=== PATIENT | female | born 1970 | race Caucasian/White ===

== ENCOUNTER 2016-03-30 13:46 | Inpatient (IN) | payer OTHER ==
[~2016-03-30] VITALS: Ht 154.9 cm; Wt 67.8 kg
[2016-03-30] VITALS (12 sets, daily range): BP systolic 108–129; BP diastolic 65–86; PULSE 82–103; RESP 18–30; TEMP 97.9–98.6; O2SAT 89–99
[~2016-03-30 13:46] MED LIST: ALPR.25 PO; ASPI81TA82 PO; ATOR80TA41 PO; FURO20 PO; LANTUS2P SC; LEVO50TA4 PO; LISI2.5T3 PO; METF500 PO; METO25TA6 PO; NOVOLOGP2 SQ; SPIR25TA PO; WARF-20 PO
[2016-03-30] MEDS ORDERED: METF1000 PO (14:20)
[2016-03-30] MEDS ORDERED: FURO20TA PO (14:21)
[2016-03-30] MEDS ORDERED: METO25TA3 PO (14:21)
[2016-03-30] MEDS ORDERED: WARF-20 PO (14:21)
[2016-03-30] MEDS ORDERED: ATOR1TAB18 PO (14:21)
[2016-03-30] MEDS ORDERED: SPIR25TA PO (14:21)
[2016-03-30] MEDS ORDERED: LANTUS2P SQ (14:21)
[2016-03-30] MEDS ORDERED: ALPR0.25 PO (14:21)
[2016-03-30] MEDS ORDERED: LEVO50TA4 PO (14:21)
[2016-03-30] MEDS ORDERED: LISI-515 PO (14:21)
[2016-03-30] MEDS ORDERED: SODIUM CHLORIDE 0.9% FLUSH 5 ML FLUSH IVF PRN (14:30)
--- NOTE | 2016-03-30 14:36 | PD ---
HPI Chief Complaint: Chest Pain Time Seen by Provider: 14:16 Travel History International Travel<30 days: No Contact w/Intl Traveler<30days: No Traveled to known affect area: No History of Present Illness HPI This is a 45 year old female who presents to the emergency department with a significant cardiac history with chest pain. Pt. had her first stent placed in her 30s and has an AICD. The patient reports that last evening she started to feel short of breath, with sharp chest pain under her left breast, constant, moderate severity, associated with multiple episodes of vomiting. She also reports that she has had a cough for a week and she has felt chills and feverish for one week. she has felt lightheaded and fatigued along with this. It has been a long time since she has seen a doctor because of insurance reasons and she has been off of all medications for one month. Pt. also has a history of IV drug use. She says she last used in 2008. PFSH Past Medical History Hx Anticoagulant Therapy: Yes (Warfarin) Anemia: No Arthritis: Yes Asthma: No Autoimmune Disease: No Blood Disorders: No Bipolar Disorder: No Anxiety: Yes Depression: Yes Heart Rhythm Problems: No Cancer: No Cardiac Catheterization: Yes Cardiovascular Problems: Yes (CHF, defibrillator, VA w/stents, DVT) High Cholesterol: Yes Chemotherapy: No Chest Pain: Yes Congestive Heart Failure: Yes COPD: Yes Cerebrovascular Accident: No Coronary Artery Disease: Yes Diabetes: Yes (Type 2 ) Patient Takes Glucophage: Yes Diminished Hearing: No Endocrine: Yes GERD: Yes Genitourinary: No Headaches: No Hepatitis: No Hiatal Hernia: No Hypertension: Yes Kidney Stones: No Musculoskeletal: Yes (CARPAL TUNNEL) Neurologic: No Psychiatric: No Reproductive: No Respiratory: Yes (COPD) Migraines: No Myocardial Infarction: Yes (2003) Pancreatitis: No Radiation Therapy: No Renal Failure: No Schizophrenia: No Seizures: No Sickle Cell Disease: No Sleep Apnea: No Thyroid Disease: Yes Ulcer: No PNEUMOCCOCAL Vaccine (Year): 3 ?: Not LMP: [place]- Menopausal: Yes : 5 Para: 3 : 2 Tubal Ligation: Yes Past Surgical History Abdominal Surgery: Yes (gb) AICD: Yes Appendectomy: No Cardiac Surgery: Yes (stents) Section: Yes (X 3) Cholecystectomy: Yes Coronary Artery Bypass Graft: No Coronary Stent: Yes (LAD) Ear Surgery: No Eye Surgery: No Genitourinary Surgery: No Gynecologic Surgery: Yes Oral Surgery: Yes Pacemaker: No Thoracic Surgery: No Tonsillectomy: No Other Surgery: Yes (c sections) Social History Alcohol Use: No Tobacco Use: No Substance Use: No Allergies-Medications (Allergen,Severity, Reaction): Coded Allergies: No Known Allergies (Unverified , 03/30/16) Reported Meds & Prescriptions Reported Meds & Active Scripts Active Reported Spironolactone 25 Mg Tab 25 Mg PO DAILY Levothyroxine (Levothyroxine Sodium) 50 Mcg Tab 50 Mcg PO DAILY Metformin (Metformin HCl) 1,000 Mg Tab 1,000 Mg PO BIDPC With meals Review of Systems Except as stated in HPI: all other systems reviewed are Neg Physical Exam Narrative GENERAL:Uncomfortable appearing SKIN: Warm and dry. HEAD: Atraumatic. Normocephalic. EYES: Pupils equal and round. No injection or drainage. ENT: Moist mucous membranes NECK: Trachea midline. CARDIOVASCULAR: Regular rate and rhythm. No murmur appreciated. RESPIRATORY: Clear to auscultation. Breath sounds equal bilaterally. GASTROINTESTINAL: Abdomen soft, non-tender, nondistended. MUSCULOSKELETAL: No obvious deformities. NEUROLOGICAL: Awake and alert. No obvious cranial nerve deficits. Moving all extremities. PSYCHIATRIC: Appropriate mood and affect; insight and judgment normal. Data Data Last Documented VS Vital Signs Date Time Temp Pulse Resp B/P Pulse Ox O2 Delivery O2 Flow Rate FiO2 03/30/16 15:14 100 20 128/80 94 108/65 03/30/16 15:14 Nasal Cannula 2 03/30/16 14:01 98.6 Orders Electrocardiogram (03/30/16 14:25) Complete Blood Count With Diff (03/30/16 14:25) Comprehensive Metabolic Panel (03/30/16 14:25) Prothrombin Time / Inr (Pt) (03/30/16 14:25) Act Partial Throm Time (Ptt) (03/30/16 14:25) Troponin I (03/30/16 14:25) Chest, Single Ap (03/30/16 14:25) Ecg Monitoring (03/30/16 14:25) Bilateral Bp Monitoring (03/30/16 14:25) Iv Access Insert/Monitor (03/30/16 14:25) Oximetry (03/30/16 14:25) Oxygen Administration (03/30/16 14:25) Sodium Chloride 0.9% Flush (Ns Flush) (03/30/16 14:30) Blood Culture (03/30/16 14:38) Lactic Acid (03/30/16 14:38) Sodium Chlorid 0.9% 500 Ml Inj (Ns 500 M (03/30/16 14:45) Lipase (03/30/16 14:25) B-Type Natriuretic Peptide (03/30/16 15:21) Sodium Chlor 0.9% 1000 Ml Inj (Ns 1000 M (03/30/16 15:45) Vancomycin Inj (Vancomycin Inj) (03/30/16 15:45) Heparin Infusion MAURI.Q1H (03/30/16 15:43) Heparin Inj (Heparin Inj) (03/30/16 15:45) Heparin-D5w Inj (Heparin-D5w Inj) (03/30/16 15:45) Cbc No Diff, Includes Plts (04/02/16 06:00) Act Partial Throm Time (Ptt) (03/30/16 22:43) Occult Blood (Hemoccult) Stool (03/30/16 15:43) Aspirin Chew (Aspirin Chew) (03/30/16 16:15) Admit Order (Ed Use Only) (03/30/16 16:10) Labs Laboratory Tests Test 03/30/16 03/30/16 03/30/16 14:00 14:40 15:05 White Blood Count 10.7 TH/MM3 Red Blood Count 4.38 MIL/MM3 Hemoglobin 12.5 GM/DL Hematocrit 36.8 % Mean Corpuscular Volume 84.1 FL Mean Corpuscular Hemoglobin 28.5 PG Mean Corpuscular Hemoglobin 34.0 % Concent Red Cell Distribution Width 14.8 % Platelet Count 126 TH/MM3 Mean Platelet Volume 7.6 FL Neutrophils (%) (Auto) 78.1 % Lymphocytes (%) (Auto) 16.2 % Monocytes (%) (Auto) 4.0 % Eosinophils (%) (Auto) 0.0 % Basophils (%) (Auto) 1.7 % Neutrophils # (Auto) 8.4 TH/MM3 Lymphocytes # (Auto) 1.7 TH/MM3 Monocytes # (Auto) 0.4 TH/MM3 Eosinophils # (Auto) 0.0 TH/MM3 Basophils # (Auto) 0.2 TH/MM3 CBC Comment DIFF FINAL Differential Comment Sodium Level 136 MEQ/L Potassium Level 4.1 MEQ/L Chloride Level 104 MEQ/L Carbon Dioxide Level 19.4 MEQ/L Anion Gap 13 MEQ/L Blood Urea Nitrogen 11 MG/DL Creatinine 1.20 MG/DL Estimat Glomerular Filtration 48 ML/MIN Rate Random Glucose 211 MG/DL Calcium Level 8.6 MG/DL Total Bilirubin 1.3 MG/DL Aspartate Amino Transf 254 U/L (AST/SGOT) Alanine Aminotransferase 80 U/L (ALT/SGPT) Alkaline Phosphatase 98 U/L Troponin I GREATER THAN 40.00 NG/ML Total Protein 7.8 GM/DL Albumin 3.1 GM/DL Lipase 83 U/L B-Type Natriuretic Peptide 1349 PG/ML Prothrombin Time 13.3 SEC Prothromb Time International 1.2 RATIO Ratio Activated Partial 29.3 SEC Thromboplast Time Lactic Acid Level 3.7 mmol/L MDM Medical Decision Making Medical Screen Exam Complete: Yes Emergency Medical Condition: Yes Interpretation(s) Afebrile, tachycardic, tachypneic, no hypoxia No leukocytosis LFTs are newly elevated Lactic acid is 3.7 BNP is 1349 Troponin is 40 EKG: Normal sinus rhythm with inferior and lateral T-wave inversions which are new from her prior EKG Differential Diagnosis Acute coronary syndrome, nSTEMI, STEMI, endocarditis, bacteremia, pneumonia Narrative Course This is a 45-year-old female who presents to the emergency department with a history of coronary artery disease as well as IV drug use. He was placed on a monitor and an IV was established. Labs are notable for a troponin greater than 40 as well as mild LFT elevation and an elevated BNP suggestive of congestive heart failure. She also has a lactic acid of 3.7 and she was somewhat tachycardic when she came in. Back in April she was admitted for strep viridans bacteremia. I did give her a dose of vancomycin. I spoke to Dr. Menchaca regarding the patient's troponin elevation and he agreed with placing the patient on heparin and transferring her to the main hospital. Diagnosis Primary Impression: NSTEMI (non-ST elevated myocardial infarction) Admitting Information Admitting Physician Requests: Admit Zee Uribe MD Mar 30, 2016 14:36
[2016-03-30] MEDS ORDERED: SODIUM CHLORID 0.9% 500 ML INJ 500 ML IV ONE (14:45)
--- NOTE | 2016-03-30 14:51 | RADHPO ---
EXAM DATE/TIME: 03/30/2016 14:30 [facility] COMPARISON: CHEST SINGLE AP, July 19, 2015, 11:31. INDICATIONS: Chest pain MEDICAL HISTORY: Chronic obstructive pulmonary disease. Asthma SURGICAL HISTORY: Pacemaker. ENCOUNTER: Initial ACUITY: 3 days PAIN SCORE: 10/10 LOCATION: Left lower quadrant chest FINDINGS: Pacemaker is in good position. There is compensated cardiomegaly without overt congestive failure, p arenchymal inflammatory infiltrates. Portion of bony skeleton visualized unremarkable. CONCLUSION: 1. Pacer. 2. Compensated cardiomegaly. Reginald Atkinson MD FACR on March 30, 2016 at 14:38 Board Certified Radiologist. This report was verified electronically.
[2016-03-30 14:56] LABS: AUTOMATED NEUTROPHIL # 8.4 TH/MM3 (1.8-7.7); BASOPHIL # 0.2 TH/MM3 (0-0.2); BASOPHIL % 1.7 % (0.0-2.0); HEMATOCRIT 36.8 % (35.0-46.0); LYMPH % 16.2 % (9.0-44.0); LYMPHOCYTE # 1.7 TH/MM3 (1.0-4.8); MEAN CELL VOLUME 84.1 FL (80.0-100.0); MEAN CORPUSCULAR HEMOGLOBIN 28.5 PG (27.0-34.0); NEUT % 78.1 % (16.0-70.0); PLATELET COUNT 126 TH/MM3 (150-450); RED BLOOD COUNT 4.38 MIL/MM3 (4.00-5.30); RED CELL DISTRIBUTION WIDTH 14.8 % (11.6-17.2); WHITE BLOOD COUNT 10.7 TH/MM3 (4.0-11.0)
[2016-03-30 15:04] LABS: HEMO FLAGS DIFF FINAL
[2016-03-30 15:08] LABS: CHLORIDE 104 MEQ/L (98-107); POTASSIUM 4.1 MEQ/L (3.5-5.1); SODIUM (NA) 136 MEQ/L (136-145)
[2016-03-30 15:12] LABS: ANION GAP 13 MEQ/L (5-15); BICARBONATE 19.4 MEQ/L (21.0-32.0); BLOOD UREA NITROGEN 11 MG/DL (7-18)
[2016-03-30 15:14] LABS: ALT (GPT) 80 U/L (10-53)
[2016-03-30 15:15] LABS: AST (GOT) 254 U/L (15-37); GLOMERULAR FILTRATION RATE 48 ML/MIN (>89)
[2016-03-30 15:16] LABS: TOTAL BILIRUBIN ADULT 1.3 MG/DL (0.2-1.0)
[2016-03-30 15:17] LABS: ALKALINE PHOSPHATASE 98 U/L (45-117)
[2016-03-30 15:26] LABS: APTT (PATIENT) 29.3 SEC (24.3-30.1); INTERNATIONAL NORMALIZED RATIO 1.2 RATIO; PROTHROMBIN TIME - PATIENT 13.3 SEC (9.8-11.6)
[2016-03-30] MEDS ORDERED: VANCOMYCIN 1,000 MG/NS 250 ML IV ONE ×2 (15:45)
[2016-03-30] MEDS ORDERED: VANCOMYCIN INJ 1,000 MG in SODIUM CHLOR 0.9% 250 ML INJ 250 ML IV ONE (15:45)
[2016-03-30] MEDS ORDERED: HEPARIN SODIUM - IV 10,000 UNITS/10 ML VIAL IV ONE (15:45)
[2016-03-30] MEDS ORDERED: HEPARIN-D5W INJ 250 ML IV SCH (15:45)
[2016-03-30] MEDS ORDERED: SODIUM CHLOR 0.9% 1000 ML INJ 1,000 ML IV ONE (15:45)
[2016-03-30] MEDS ORDERED: ASPIRIN 81 MG CHEW TAB CHEW ONE (16:15)
[2016-03-30] MEDS ORDERED: NALOXONE HCL 0.4 MG/ML AMP IV PRN (16:30)
[2016-03-30] MEDS ORDERED: SODIUM CHLORIDE 0.9% FLUSH 5 ML FLUSH FLUSH PRN (16:30)
[2016-03-30] MEDS ORDERED: ONDANSETRON HCL 4 MG/2 ML VIAL IVP PRN (16:30)
[2016-03-30] MEDS ORDERED: ACETAMINOPHEN 325 MG TAB PO PRN (16:30)
[2016-03-30] MEDS ORDERED: GLUCAGON 1 MG/ML VIAL OTHER PRN (16:45)
[2016-03-30] MEDS ORDERED: DEXTROSE 50% IN WATER 50 ML VIAL(D50) IV PUSH PRN (16:45)
[2016-03-30] MEDS ORDERED: MORPHINE SULFATE 8 MG/ML INJ IV PUSH ONE (16:45)
[2016-03-30] MEDS ORDERED: ALPRAZolam 0.25 MG TAB PO PRN (16:45)
[2016-03-30] MEDS: MORPHINE SULFATE 4 MG/ML INJ IV PRN ×2 (18:23→23:15)
[2016-03-30 21:09] LABS: CREATINE KINASE 1128 U/L (26-192)
[2016-03-30] MEDS: DOCUSATE SODIUM 100 MG CAP PO SCH (21:16)
[2016-03-30] MEDS: ATORVASTATIN 40 MG TAB PO SCH (21:17)
[2016-03-30] MEDS: SODIUM CHLORIDE 0.9% FLUSH 5 ML FLUSH FLUSH SCH (21:17)
[2016-03-30 21:21] LABS: CKMB 108.3 NG/ML (0.5-3.6)
[2016-03-30] MEDS: INSULIN ASPART SUPPLEMENTAL SCALE SQ SCH (21:25)
[2016-03-30] MEDS: NITROGLYCERIN 0.4 MG SL 25 TABS/BTL SL PRN (23:15)
[2016-03-31] VITALS (30 sets, daily range): BP systolic 91–125; BP diastolic 56–85; PULSE 82–202; RESP 22–30; TEMP 97.9–98.5; O2SAT 89–98
[2016-03-31] MEDS: NITROGLYCERIN 2% OINT 1 GM PACKET TOPICAL SCH ×5 (01:20→23:36)
[2016-03-31] MEDS: NITROGLYCERIN 0.4 MG SL 25 TABS/BTL SL PRN (01:28)
[2016-03-31 02:11] LABS: APTT (PATIENT) 40.5 SEC (24.3-30.1)
[2016-03-31] MEDS: MORPHINE SULFATE 4 MG/ML INJ IV PRN ×7 (02:25→23:39)
[2016-03-31 02:45] LABS: CREATINE KINASE 1056 U/L (26-192)
[2016-03-31 02:59] LABS: CKMB 72.4 NG/ML (0.5-3.6)
[2016-03-31 04:11] LABS: AUTOMATED NEUTROPHIL # 6.8 TH/MM3 (1.8-7.7); BASOPHIL # 0.1 TH/MM3 (0-0.2); BASOPHIL % 0.5 % (0.0-2.0); EOSINOPHIL % 0.1 % (0.0-4.0); HEMATOCRIT 33.5 % (35.0-46.0); HEMO FLAGS DIFF FINAL; LYMPH % 27.9 % (9.0-44.0); LYMPHOCYTE # 2.9 TH/MM3 (1.0-4.8); MEAN CELL VOLUME 83.9 FL (80.0-100.0); MEAN CORPUSCULAR HEMOGLOBIN 28.2 PG (27.0-34.0); MEAN CORPUSCULAR HGB CONC 33.6 % (32.0-36.0); MONO % 7.4 % (0.0-8.0); NEUT % 64.1 % (16.0-70.0); PLATELET COUNT 118 TH/MM3 (150-450); RED CELL DISTRIBUTION WIDTH 16.1 % (11.6-17.2); WHITE BLOOD COUNT 10.5 TH/MM3 (4.0-11.0)
[2016-03-31 04:38] LABS: BICARBONATE 20.9 MEQ/L (21.0-32.0); POTASSIUM 3.9 MEQ/L (3.5-5.1)
--- NOTE | 2016-03-31 04:53 | HHI.HP ---
[facility] Service [place] [facility] Primary Care Physician No Primary Care Physician Admission Diagnosis nstemi Diagnoses: Chief Complaint: Chest pain, shortness of breath Travel History International Travel<30 Days: No Contact w/Intl Traveler <30 Da: No Traveled to Known Affected Are: No History of Present Illness History the patient, ER physician notes, and review of medical records. patient reported that she came to the hospital because she has been having chest pains starting Wednesday evening. stated it started with 1 week history of cough, congestion,. No fever. Patient states that on Wednesday, she then started having severe shortness of breath followed by chest pains. She describes chest pains of midsternal, or squeezing in nature, no radiation. It was associated with some diaphoresis. Denies any blood in her stool or in her urine. Denies any nausea/vomiting/diarrhea. Denies any syncopal episodes. Reports of history of CADstatus post stent at the age of [age] years old. Also reported CHFstatus post AICD. States she stopped taking all her medications because she ran out of insurance. Patient is a chronic smoker half a pack a day. But denies being on any nebulizer or inhaler treatments at home so far. She says she also has history of DVT for which she was on Coumadin. Also stopped this about 3 or 4 weeks ago. patient initially presented to [place] emergency room. Her workup revealed elevated troponins. Per ER records, patient's case was discussed with [employer] systems administration analyst by ER physician. She was started on heparin drip, nitroglycerin sublingual, and morphine for her non-ST elevation SD and transferred to the main hospital for coronary angiogram. At the time of my exam, patient was initially sleeping comfortably. However as soon as I wake her up and talked to her, she gets somewhat anxious and she did have some hyperventilation and is complaining of quite a bit of chest pains. She reports the chest pain is relieved by nitroglycerin although is still persistent around 4. Review of Systems Other 12 point review of system is obtained and negative apart from what is mentioned in HPI Past Family Social History Past Medical History Hypertension Diabetes CADcardiac stents 2At age of 35 Hyperlipidemia CHFstatus post AICD. Last EF was 30% per patient. COPD Hepatitis Cnot treated History of DVTabout 2 years ago. Stated she stopped Coumadin on her own about 3 weeks ago or so. Hypothyroidism Past Surgical History AICD placement Cardiac stents and angiograms C-sections Tubal ligation Reported Medications Patient states she is not taking medications at home currently because she does not have insurance. Allergies: Coded Allergies: No Known Allergies (Unverified , 03/30/16) Family History reports hx of heart disease in family members, but cant be sure Social History / ppd , denies etoh abuse used to use meth iv - quit many years ago Physical Exam Vital Signs Vital Signs Date Time Temp Pulse Resp B/P Pulse Ox O2 Delivery O2 Flow Rate FiO2 03/31/16 03:30 97.9 100 30 121/79 89 03/30/16 23:05 97.9 103 30 129/86 89 03/30/16 22:25 82 18 97 03/30/16 22:24 82 18 124/78 97 Room Air 03/30/16 21:10 85 18 128/85 97 Room Air 03/30/16 20:00 83 18 126/80 98 Room Air 03/30/16 19:18 97 Nasal Cannula 2.00 03/30/16 19:06 84 18 122/82 97 Room Air 03/30/16 17:59 82 22 118/82 97 03/30/16 17:03 95 20 128/86 96 03/30/16 16:14 95 20 129/85 96 03/30/16 15:14 100 20 128/80 94 108/65 03/30/16 15:14 98 Nasal Cannula 2.00 03/30/16 15:14 Nasal Cannula 2 03/30/16 15:10 97 03/30/16 14:01 98.6 103 28 119/82 99 Physical Exam GENERAL: This is a well-nourished, well-developed patient, in mild distress. Somewhat anxious. Hyperventilating. Reports of chest pain. Tachycardic around 106. Blood pressure around 127/80. Saturating 96% on 50% Ventimask while asleep. But during awake hours, saturation was 96% on 2 L. SKIN: No rashes, ecchymoses or lesions. Cool and dry. HEAD: Atraumatic. Normocephalic. No temporal or scalp tenderness. EYES: No scleral icterus. No injection or drainage. ENT: Nose without bleeding, purulent drainage or septal hematoma. Airway patent. NECK: Trachea midline. No JVD CARDIOVASCULAR: Regular rate and rhythm without murmurs, gallops, or rubs. Lungs: Bilateral expiratory wheezing GASTROINTESTINAL: Abdomen soft, non-tender, nondistended. No guarding. MUSCULOSKELETAL: Extremities without clubbing, cyanosis, or edema. No calf tenderness NEUROLOGICAL: Awake and alert Motor and sensory grossly within normal limits Normal speech. Laboratory Laboratory Tests Test 03/30/16 03/30/16 03/30/16 03/30/16 14:00 14:40 15:05 20:30 White Blood Count 10.7 Red Blood Count 4.38 Hemoglobin 12.5 Hematocrit 36.8 Mean Corpuscular Volume 84.1 Mean Corpuscular Hemoglobin 28.5 Mean Corpuscular Hemoglobin 34.0 Concent Red Cell Distribution Width 14.8 Platelet Count 126 Mean Platelet Volume 7.6 Neutrophils (%) (Auto) 78.1 Lymphocytes (%) (Auto) 16.2 Monocytes (%) (Auto) 4.0 Eosinophils (%) (Auto) 0.0 Basophils (%) (Auto) 1.7 Neutrophils # (Auto) 8.4 Lymphocytes # (Auto) 1.7 Monocytes # (Auto) 0.4 Eosinophils # (Auto) 0.0 Basophils # (Auto) 0.2 CBC Comment DIFF FINAL Differential Comment Sodium Level 136 Potassium Level 4.1 Chloride Level 104 Carbon Dioxide Level 19.4 Anion Gap 13 Blood Urea Nitrogen 11 Creatinine 1.20 Estimat Glomerular Filtration 48 Rate Random Glucose 211 Calcium Level 8.6 Total Bilirubin 1.3 Aspartate Amino Transf 254 (AST/SGOT) Alanine Aminotransferase 80 (ALT/SGPT) Alkaline Phosphatase 98 Troponin I GREATER THAN GREATER THAN 40.00 40.00 Total Protein 7.8 Albumin 3.1 Lipase 83 B-Type Natriuretic Peptide 1349 Prothrombin Time 13.3 Prothromb Time International 1.2 Ratio Activated Partial 29.3 Thromboplast Time Lactic Acid Level 3.7 Total Creatine Kinase 1128 Creatine Kinase MB 108.3 Creatine Kinase MB % 9.6 Test 03/31/16 03/31/16 01:43 03:25 Activated Partial 40.5 Thromboplast Time Total Creatine Kinase 1056 Creatine Kinase MB 72.4 Creatine Kinase MB % 6.9 Troponin I GREATER THAN 40.00 White Blood Count 10.5 Red Blood Count 4.00 Hemoglobin 11.3 Hematocrit 33.5 Mean Corpuscular Volume 83.9 Mean Corpuscular Hemoglobin 28.2 Mean Corpuscular Hemoglobin 33.6 Concent Red Cell Distribution Width 16.1 Platelet Count 118 Mean Platelet Volume 8.3 Neutrophils (%) (Auto) 64.1 Lymphocytes (%) (Auto) 27.9 Monocytes (%) (Auto) 7.4 Eosinophils (%) (Auto) 0.1 Basophils (%) (Auto) 0.5 Neutrophils # (Auto) 6.8 Lymphocytes # (Auto) 2.9 Monocytes # (Auto) 0.8 Eosinophils # (Auto) 0.0 Basophils # (Auto) 0.1 CBC Comment DIFF FINAL Differential Comment Sodium Level 136 Potassium Level 3.9 Chloride Level 102 Carbon Dioxide Level 20.9 Anion Gap 13 Blood Urea Nitrogen 12 Creatinine 0.96 Estimat Glomerular Filtration 62 Rate Random Glucose 128 Calcium Level 8.0 Date/Time Procedure Status Source Growth 03/30/16 15:05 Aerobic Blood Culture Received Blood Peripheral Pending 03/30/16 15:05 Anaerobic Blood Culture Received Blood Peripheral Pending Result Diagram: 03/31/16 0325 03/31/16 0325 Imaging Last 48 hours Impressions Chest X-Ray 03/30/16 1425 Signed Impressions: Service Date/Time: Wednesday, March 30, 2016 14:30 - CONCLUSION: 1. Pacer. 2. Compensated cardiomegaly. Reginald Atkinson MD FACR Assessment and Plan Problem List: (1) NSTEMI (non-ST elevated myocardial infarction) ICD Code: I21.4 Status: Acute Assessment and Plan Impression: Non-ST elevation SD Possible anxiety compounding the symptoms Lactic acid acidosissecondary to SD Hypertension Diabetes CADcardiac stents 2At age of 35 Hyperlipidemia CHFstatus post AICD. Last EF was 30% per patient. COPD Hepatitis Cnot treated History of DVTabout 2 years ago. Stated she stopped Coumadin on her own about 3 weeks ago or so. Hypothyroidism Current tobacco abuse Prior history of IV methamphetamine use. Patient denies current use. Plan: Serial cardiac enzymes and EKGs. Continue heparin drip. Switch nitroglycerin to Nitropaste. We'll consider starting nitro drip if pain is not relieved. However nurse reported that patient's pain is usually relieved after receiving morphine and she would go back to sleep. She has some anxiety when we woke her up and this is when she will complain more of chest pains and shortness of breath. Cardiology consulted. Angiogram in a.m. Nothing by mouth. No sliding scale coverage while nothing by mouth. Since heparin does have D5 in it, I am not starting the D5 IV drip yet while nothing by mouth. We'll base this on fingersticks. Xanax 0.25 mg by mouth twice a day. DVT prophylaxison heparin drip. GI prophylaxis on pantoprazole. Discussed Condition With patient, patient's nurse Physician Certification 2 Midnight Certification Type: Admission for Inpatient Services Order for Inpatient Services The services are ordered in accordance with Medicare regulations or non- Medicare payer requirements, as applicable. In the case of services not specified as inpatient-only, they are appropriately provided as inpatient services in accordance with the 2-midnight benchmark. Estimated LOS (days): 3 days is the estimated time the patient will need to remain in the hospital, assuming treatment plan goals are met and no additional complications. Post-Hospital Plan: Home Zachary Molina MD Mar 31, 2016 04:53
[2016-03-31] MEDS: LEVOTHYROXINE SODIUM 50 MCG TAB PO SCH (05:50)
[2016-03-31] MEDS: INSULIN ASPART SUPPLEMENTAL SCALE SQ SCH ×4 (06:25→20:49)
[2016-03-31] MEDS: SPIRONOLACTONE 25 MG TAB PO SCH (08:53)
[2016-03-31] MEDS: METOPROLOL TARTRATE 25 MG TAB PO SCH (08:53)
[2016-03-31] MEDS: DOCUSATE SODIUM 100 MG CAP PO SCH ×2 (08:53→20:39)
[2016-03-31] MEDS: SODIUM CHLORIDE 0.9% FLUSH 5 ML FLUSH FLUSH SCH ×2 (08:54→20:45)
[2016-03-31] MEDS: PANTOPRAZOLE SOD 40 MG DELAYED RELEASE TAB PO SCH (09:09)
--- NOTE | 2016-03-31 11:36 | MB ---
cc: ZEKE MCLEAN DO DATE OF CONSULTATION: 03/31/2016 REASON FOR CONSULTATION: Tiy-VT-aujhihird myocardial infarction. HISTORY OF PRESENT ILLNESS Chantal Smart is a 45-year-old female who originally presented to the emergency room at [facility] on March 30, 2016 due to chest pain. She was found to have an elevated troponin and at that time placed on a heparin drip and transferred to [facility]. She states that she has had cough and congestion for a week coughing up some phlegm but denies fevers or chills. Wednesday night she started getting more severely short of breath and started getting some chest pain. Chest pain was in the center her chest and squeezing in nature. Denies any nausea, vomiting or diarrhea. On seeing her today she is still somewhat short of breath but denies any current chest pain. She currently is bringing up phlegm which has blood streaks throughout it. She also states that she was previously on medications including coumadin for a deep venous thrombosis that she stopped three to four weeks ago. When she takes off her non -rebreather mask, pulse ox drops to 80%. She can lay flat without getting more short of breath. PAST MEDICAL HISTORY 1. Hypertension 2. Diabetes mellitus. 3. History of coronary artery disease with previous stenting done in her 30s. 4. Hyperlipidemia 5. Ischemic cardiomyopathy with placement of an AICD. 6. Tobacco abuse. 7. Chronic obstructive pulmonary disease. 8. Hepatitis C not treated. 9. History of DVT about 2 years ago recently stopped Coumadin three weeks or so ago. 10. Hypothyroidism. 11. Previous drug abuse including meth and Dilaudid IV. PAST SURGICAL HISTORY 1. Cardiac catheterization (November 29, 2012) left main 20%, LAD ostial 50%, LAD stent in proximal to mid vessel is widely patent, mid 78% LAD, apical 80% stenosis LAD. Circumflex proximal 40% followed by a mid 70%. RCA proximal 60% mid 30-40%, PLV 60%, PDA proximal 70%, all extremely small vessels 2. Previous coronary stents placed in her 30s. 3. AICD placement. 4. . 5. Tubal ligation. ALLERGIES NO KNOWN DRUG ALLERGIES. MEDICATIONS The patient previously was on multiple medications but, stopped because she could not afford it and does not have insurance. FAMILY HISTORY The patient is currently unsure of her family history but denies sudden cardiac within the family. SOCIAL HISTORY The patient smokes one half-a-pack of cigarettes per day. Denies alcohol abuse. Previously had a history of meth and Dilaudid IV use but states she quit years ago. REVIEW OF SYSTEMS 14 systems were reviewed including osteopathic pertinent positives and negatives above, otherwise negative. PHYSICAL EXAMINATION VITAL SIGNS: Temperature 97.9, heart rate 103, blood pressure 121/79, respirations 20, pulse ox 89% on a non-rebreather. GENERAL: The patient is in some distress but appears to be breathing relatively well on her mask. She is somewhat anxious overall. Extraocular muscles intact. Mucous membranes moist. NECK: Supple. No JVD at 45 degrees. No carotid bruits heard bilaterally. Carotid upstroke is brisk in nature. HEART: Heart is tachycardic. Positive first and second heart sounds with no murmurs, gallops or rubs. LUNGS: Lungs have decreased breath sounds bilaterally but no overt wheezes, rales or rhonchi. ABDOMEN: Abdomen is soft, nontender sent no organomegaly noted. EXTREMITIES: Show no clubbing, cyanosis or edema. Femoral and distal pulses intact bilaterally. NEUROLOGIC: Neurologically: No focal deficits. SKIN: Warm, dry and intact. OSTEOPATHIC: Osteopathic with no kyphoscoliosis, lordosis or paraspinal tender points. LABORATORY FINDINGS The initiation hemoglobin 11.3, hematocrit 33.5, platelets 118. Left anterior descending needed. Potassium 3.9, BUN 12, creatinine 0.96, lactic acid 3.7, troponin greater than 40. BNP 13, 49. RADIOLOGIC: Electrocardiogram (March 31, 2016 at 0315) sinus tachycardia with one PVC, right axis deviation, inferior infarct which is age indeterminate, ST-T wave changes, possibly due to ischemia. IMPRESSION 1. Chest pain possibly due to coronary insufficiency, but PE should be ruled out 2. [id number] myocardial infarction unsure if at this time if it is type 1 or type 2. 3. Multivessel coronary artery disease by cardiac catheterization (November 29, 2012) 4. History of coronary artery disease with previous stents placed in her 30s. 5. Ischemic cardiomyopathy with an ejection fraction of 20-25% by echocardiogram (July 20, 2015). 6. Phlegm streaks with blood after being placed on a heparin drip. 7. Hypoxia 8. History of meth and Dilaudid IV use. 9. Tobacco abuse. 10. COPD. 11. Hepatitis C not treated. 12. History of DVT for which she was previously on Coumadin but stopped all her medications due to not having insurance 13. Noncompliance as she stopped all of her medications due to financial recent reasons. RECOMMENDATIONS 1. Lyndsey Smart originally presented with shortness of breath and chest pain. She was found to have an elevated troponin placed on a heparin drip. She does have known multivessel coronary artery disease and this may be why she has the elevation of troponin. 2. My other concern is that she is relatively short of breath and tachycardic. Consideration should be made for ruling out a pulmonary embolus. 3. She does have blood in her sputum after being placed on a heparin drip. This may be due to bronchitis as she has had a cough for a week, or pulmonary embolism. 4. Pulmonary cause should be investigated. 5. Will discuss with primary team about all direction of workup towards pulmonary embolus and then coronary visualization if negative. Thank you for allowing me to see Chantal smart if there are any questions please do not hesitate to call. Zeke Mclean DO VGP/mh /9:07 AM /9:33 AM MTDD
[2016-03-31] MEDS ORDERED: IOHEXOL 350 MG/ML 10 ML VIAL (for RAD DIAG) IV ONE (13:03)
--- NOTE | 2016-03-31 13:07 | RADRPT ---
EXAM DATE/TIME: 03/31/2016 12:19 [facility] COMPARISON: No previous studies available for comparison. INDICATIONS : Shortness of breath ,poor oxygen sats. IV CONTRAST: 50 cc Omnipaque 350 (iohexol) IV RADIATION DOSE: 10.62 CTDIvol (mGy) MEDICAL HISTORY : Hypertension. Cardiovascular disease Chronic obstructive pulmonary disease.Diabetes SURGICAL HISTORY : Cholecystectomy. Tubal ligation.defibrillation ENCOUNTER: Initial ACUITY: 1 day PAIN SCALE: 0/10 LOCATION: chest TECHNIQUE: Volumetric scanning of the chest was performed using a pulmonary embolism protocol MIP images were re constructed. Using automated exposure control and adjustment of the mA and/or kV according to patien t size, radiation dose was kept as low as reasonably achievable to obtain optimal diagnostic quality images. FINDINGS: PULMONARY ARTERIES: Bilateral lower lobe pulmonary artery branch emboli are noted. LUNGS: Patchy alveolar consolidations are noted within the lower lobes bilaterally a consistent with focal p neumonia, infarcts and/or atelectasis. Minimal scattered atelectasis is noted within the upper lobes bilaterally. No concerning pulmonary nodule is visualized. PLEURAE: Tiny right pleural effusion is noted. MEDIASTINUM: There is good visualization of the great vessels of the middle mediastinum. Nonspecific pretracheal a nd precarinal mediastinal lymphadenopathy is noted. The heart is enlarged. Coronary artery calcificat ions are noted. Left subclavian single lead pacemaker has its tip in the right ventricle. MUSCULOSKELETAL: Within normal limits for patient age. MISCELLANEOUS: The visualized upper abdominal organs demonstrate no acute abnormality. CONCLUSION: 1. Pulmonary emboli within the lower lobe branches of the pulmonary arteries bilaterally. 2. Bibasilar alveolar consolidations consistent with pneumonia and atelectasis assess for pulmonary i nfarcts. 3. Tiny right pleural effusion. 4. Cardiomegaly and coronary artery calcifications. 5. Nonspecific pretracheal and precarinal mediastinal lymphadenopathy. Richard Powell MD on March 31, 2016 at 12:59 Board Certified Radiologist. This report was verified electronically.
[2016-03-31 13:41] LABS: TOTAL BILIRUBIN ADULT 1.6 MG/DL (0.2-1.0)
[2016-03-31] MEDS ORDERED: HEPARIN-D5W INJ 250 ML IV SCH (14:45)
--- NOTE | 2016-03-31 14:56 | RADRPT ---
EXAM DATE/TIME: 03/31/2016 14:06 [facility] COMPARISON: No previous studies available for comparison. INDICATIONS : Abnormal labs. MEDICAL HISTORY : Congestive heart failure. Myocardial infarction. Chronic obstructive pulmonary disease. Thyroid disea se. Anticoagulant therapy. Hypercholesterolemia.Hypertension. Deep venous thrombosis. GERD. Inflammat ory bowel disease. SURGICAL HISTORY : Cholecystectomy. section. Tubal ligation. Pacemaker placement. Coronary stents. Cardiac cath eterization. ENCOUNTER: Initial ACUITY: 1 day PAIN SCORE: 0/10 LOCATION: Abdomen. MEASUREMENTS: LIVER: 17.9 cm length COMMON DUCT: 6 mm RIGHT KIDNEY: 9.1 x 4.5 x 4.9 cm SPLEEN: 10.8 cm length FINDINGS: LIVER: Is mildly prominent measuring up to 17.9 cm but no focal mass or ductal dilatation. COMMON DUCT: No intraluminal mass or stone visualized. GALLBLADDER: Status post cholecystectomy. PANCREAS: The visualized portions are within normal limits. RIGHT KIDNEY: No hydronephrosis, stone or mass. SPLEEN: No focal lesion. CONCLUSION: 1. The liver is mildly prominent with no focal lesion. 2. Status post cholecystectomy. Gerber Pimentel MD on March 31, 2016 at 14:53 Board Certified Radiologist. This report was verified electronically.
[2016-03-31] MEDS ORDERED: THIAMINE HCL 100 MG TAB PO ONE (15:00)
[2016-03-31 15:47] LABS: APTT (PATIENT) 41.1 SEC (24.3-30.1); INTERNATIONAL NORMALIZED RATIO 1.3 RATIO; PROTHROMBIN TIME - PATIENT 14.1 SEC (9.8-11.6)
[2016-03-31 17:00] LABS: BLOOD GAS BASE EXCESS -6.8 mmol/L (-2-2); BLOOD GAS CARBOXYHEMOGLOBIN 2.2 % (0-4); BLOOD GAS HCO3 16 mmol/L (22-26); BLOOD GAS METHEMOGLOBIN 0.9 % (0-2); BLOOD GAS O2 HGB SATURATION 95 % (90-100); BLOOD GAS OXYGEN CONTENT 15.1 Vol % (12.0-20.0); BLOOD GAS PCO2 24 mmHg (38-42); BLOOD GAS PO2 91 mmHg (61-120); BLOOD GAS TOTAL HGB 11.3 G/DL (12.0-16.0); TEMP CORR TO 98.6
[2016-03-31 17:06] LABS: CRITICAL VALUE YES; DRAW SITE LT RADIAL; LITER FLOW 3 L/M; NUMBER OF ARTERIAL PUNCTURES 1; OXYGEN DEVICE NASAL CANNULA; STAT NO
[2016-03-31] MEDS ORDERED: AZITHROMYCIN INJ 500 MG in SODIUM CHLOR 0.9% 250 ML INJ 250 ML IV SCH (20:00)
--- NOTE | 2016-03-31 20:00 | EC ---
Study Study Date:03/31/2016 STUDY CONCLUSIONS SUMMARY - Left ventricle: The cavity size was moderately dilated. Systolic function was severely reduced. The estimated ejection fraction was in the range of 15% to 20%. Diffuse hypokinesis. - Mitral valve: Moderate regurgitation. - Left atrium: The atrium was moderately dilated. - Right ventricle: The cavity size was mildly dilated. - Tricuspid valve: Mild-moderate regurgitation. - Pulmonic valve: Mild regurgitation. - Pulmonary arteries: PA peak pressure: 60mm Hg (S). If LV function is below 40, please consider prescribing an ACEI or ARB or document rationale for non-use. PROCEDURE DATA STUDY STATUS: Elective. Procedure: Transthoracic echocardiography. Image quality was good. Scanning was performed from the parasternal, apical, and subcostal acoustic windows. Study completion: The patient tolerated the procedure well. Transthoracic echocardiography. M-mode, complete 2D, complete spectral Doppler, and color Doppler. Height: Height: 61in. Weight: Weight: 144.7lb. Body mass index: BMI: 27.4kg/m^2. Body surface area: BSA: 1.65m^2. Patient status: Inpatient. CARDIAC ANATOMY LEFT VENTRICLE: The cavity size was moderately dilated. Systolic function was severely reduced. The estimated ejection fraction was in the range of 15% to 20%. Diffuse hypokinesis. AORTIC VALVE: The valve appears to be grossly normal. Doppler: There was no stenosis. No significant regurgitation. Valve area: 1.19cm^2(VTI). Indexed valve area: 0.72cm^2/m^2 (VTI). Valve area: 1.42cm^2 (Vmax). Indexed valve area: 0.86cm^2/m^2 (Vmax). Mean gradient: 3mm Hg (S). MITRAL VALVE: The valve appears to be grossly normal. Doppler: There was no evidence for stenosis. Moderate regurgitation. Peak gradient: 3mm Hg (D). LEFT ATRIUM: The atrium was moderately dilated. RIGHT VENTRICLE: The cavity size was mildly dilated. PULMONIC VALVE: The valve appears to be grossly normal. Doppler: There was no evidence for stenosis. Mild regurgitation. TRICUSPID VALVE: The valve appears to be grossly normal. Doppler: There was no evidence for stenosis. Mild-moderate regurgitation. PERICARDIUM: There was no pericardial effusion. Patient weight: 144.7lb _Ejection fraction:_ 65-75% _Fractional shortening:_ 32% up to 5Kg 5-11.5Kg 11.6-22.9Kg 23-45Kg 45-57Kg Aortic Root 7-13 <17 13-22 17-27 17-27 LA diam 6-13 <23 24-38 33-47 37-40 RVID 10-17 7-15 7-15 7-18 8-17 LVIDd 12-22 <32 24-38 33-47 37-40 LVPW 2-4 3-6 5-7 6-8 7-8 IVS 2-4 3-6 5-7 6-8 7-8 BASIC MEASUREMENTS ADULT NORMAL Left ventricle LV internal dimension, ED, chordal *60.4 mm 43-52 level, PLAX LV internal dimension, ES, chordal *57.4 mm 23-38 level, PLAX Fractional shortening, chordal level, *5 % >29 PLAX LV posterior wall thickness, ED 6.42 mm IVS/LVPW ratio, ED 1.01 <1.3 Volume, ED, MOD, 1-plane 249 ml Volume, ES, MOD, 1-plane 204 ml Ejection fraction, MOD, 1-plane 18 % Stroke volume, MOD, 1-plane 45 ml Volume index, ED, MOD, 1-plane 151 ml/m^2 Volume index, ES, MOD, 1-plane 124 ml/m^2 Stroke index, MOD, 1-plane 27.3 ml/m^2 Volume, ED, MOD, 2-plane 243 ml Volume, ES, MOD, 2-plane 214 ml Ejection fraction, MOD, 2-plane 12 % Stroke volume, MOD, 2-plane 29 ml Volume index, ED, MOD, 2-plane 147 ml/m^2 Volume index, ES, MOD, 2-plane 130 ml/m^2 Stroke index, MOD, 2-plane 17.6 ml/m^2 Ventricular septum Septal thickness, ED 6.48 mm Aortic valve Leaflet separation 20 mm 15-26 Aorta Root diameter, ED 30 mm Left atrium Anterior-posterior dimension 41 mm Anterior-posterior dimension index *2.48 cm/m^2 <2.2 BASIC MEASUREMENTS ADULT NORMAL Aortic valve Leaflet separation 20 mm 15-26 DOPPLER MEASUREMENTS ADULT NORMAL Main pulmonary artery Pressure, S *60 mm Hg =30 Aortic valve Peak velocity, S 108 cm/s Mean velocity, S 77.3 cm/s VTI, S 15.8 cm Mean gradient, S 3 mm Hg Valve area, VTI 1.19 cm^2 Valve area index, VTI 0.72 cm^2/m^2 Valve area, Vmax 1.42 cm^2 Valve area index, Vmax 0.86 cm^2/m^2 Mitral valve Peak E-wave velocity 83.9 cm/s Peak A-wave velocity 75.3 cm/s Peak gradient, D 3 mm Hg Peak E/A ratio 1.1 Tricuspid valve Regurgitant peak velocity 341 cm/s Peak RV-RA gradient, S 47 mm Hg Maximal regurgitant velocity 341 cm/s Right ventricle RV pressure, S *62 mm Hg <30 Pulmonic valve Peak velocity, S 77.1 cm/s LEGEND: Mean values are shown as u=mean value. Asterisk (*) godfrey values outside specified normal range. Prepared and signed by Zeke Colvin [id number]
[2016-03-31] MEDS: ATORVASTATIN 40 MG TAB PO SCH (20:39)
[2016-03-31] MEDS ORDERED: HEPARIN SODIUM - IV 10,000 UNITS/10 ML VIAL IV PRN ×2 (20:45)
[2016-03-31] MEDS: FLUTICASONE PROPIONATE 110 MCG/ACT 12 GM INHALER INH SCH ×2 (21:00→23:40)
[2016-03-31 22:21] LABS: APTT (PATIENT) 40.1 SEC (24.3-30.1)
[2016-03-31] MEDS: RESP: ALBUTEROL 2.5 MG/IPRATROPIUM 0.5 MG NEB (SCH) NEB (22:24)
[2016-04-01] VITALS (29 sets, daily range): BP systolic 94–119; BP diastolic 54–69; PULSE 79–94; RESP 20–22; TEMP 97.9–98.7; O2SAT 96–98
[2016-04-01] MEDS: RESP: ALBUTEROL 2.5 MG/IPRATROPIUM 0.5 MG NEB (SCH) NEB ×4 (03:41→20:14)
--- NOTE | 2016-04-01 05:48 | MB ---
cc: MILY FOUNTAIN DATE OF CONSULTATION 03/31/2016 REASON FOR CONSULTATION Respiratory distress and COPD. HISTORY OF PRESENT ILLNESS This is a 45-year-old white female who has had a history for chronic bronchitis, was initially seen in the hospital with a history of chest pains and shortness of breath of 2-3 days' duration. The patient has had a cold, cough and chest congestion for at least a week prior to this episode. She then came to the ER since she was having increasing pressure-like chest pains with no radiation but was associated with shortness of breath and sweating and upon arrival, further evaluation with CAT scan demonstrated evidence bilateral pulmonary embolism and troponins were elevated as well and the patient was placed in the ICU and now on heparin drip as well as on oxygen at 3 liters. The chest pain has subsided. Denies any nausea, vomiting or hemoptysis. She is bringing up some brownish-yellow mucus and has no fevers or chills. Chest x-ray showed minimal infiltrates at the lung bases. EKG was suggestive of a non-ST elevation CO. PAST HISTORY 1. Coronary artery disease with stenting at age 35. 2. History of hypertension. 3. History of CHF with ejection fraction of 30%. 4. She has had DVT 2 years ago and was on Coumadin which was discontinued. 5. Hepatitis C in the past. SURGERY 1. AICD placement. 2. Coronary stenting. 3. x 1. 4. Tubal ligation as well. ALLERGIES None listed. FAMILY HISTORY Significant for heart disease. HABITS The patient smoked 1/2 to one pack per day and alcohol use moderate. She has used IV drugs in the past including meth. SYSTEMS REVIEW The patient has lost weight. She has dizziness, postnasal drip with epigastric distress and reflux. No urinary symptoms or flank pain. No night sweats, fevers or chills. She has had no leg swelling but has had some calf muscle discomfort and some groin pains. Denies any blackout spells and no depression or anxiety. PHYSICAL EXAMINATION GENERAL: This is averagely built middle-aged lady, alert and pale, in mild respiratory distress. VITAL SIGNS: Blood pressure 130/70, pulse is 86, respirations of 184, temperature 97.6. HEENT: Head normocephalic. Pupils are reactive. Tongue moist. Throat is injected. Nasal mucosa edematous. NECK: No bruits or thyroid enlargement. CHEST: Distant breath sounds with wheezes bilaterally. Prolonged expirations. Occasional crackles at the left base. HEART: The heart sounds are irregular. S1 and S2. No murmur. No S3. ABDOMEN: Soft, benign. No mass. No organomegaly or tenderness. EXTREMITIES: Mild varicosities. Decreased peripheral pulses. No calf tenderness. No edema. NEUROLOGIC: No focal deficits. Cranial nerves grossly intact. RECTAL: Exam is deferred. IMPRESSION 1. Bilateral pulmonary emboli with hypoxemia. 2. CHF, compensated. 3. Non-ST elevated myocardial infarct. 4. COPD with emphysema. 5. History of DVT. PLAN 1. The patient has been placed on O2 at 2 liters, nebulized DuoNeb solution continued four times a day, Solu-Medrol 40 mg IV every 8 hours. 2. She was given Zithromax 500 mg IV daily and sputum sent for Gram's stain and culture. 3. PFT will be arranged as well this week. 4. The patient will start physiotherapy program. I will follow the case with you Dr. Roldan. Thank you for this consultation. The patient has been counseled about quitting cigarette smoking and the use of nicotine patch. Mily Fountain MD JVD/BONILLA /11:12 PM /5:36 AM
[2016-04-01] MEDS: NITROGLYCERIN 2% OINT 1 GM PACKET TOPICAL SCH ×3 (06:00→17:57)
[2016-04-01] MEDS: LEVOTHYROXINE SODIUM 50 MCG TAB PO SCH (06:00)
[2016-04-01] MEDS: INSULIN ASPART SUPPLEMENTAL SCALE SQ SCH ×4 (06:35→21:00)
[2016-04-01 07:08] LABS: APTT (PATIENT) 39.3 SEC (24.3-30.1)
[2016-04-01 07:23] LABS: AUTOMATED NEUTROPHIL # 6.9 TH/MM3 (1.8-7.7); BASOPHIL # 0.1 TH/MM3 (0-0.2); BASOPHIL % 0.6 % (0.0-2.0); EOSINOPHIL % 0.1 % (0.0-4.0); HEMO FLAGS DIFF FINAL; LYMPH % 18.4 % (9.0-44.0); LYMPHOCYTE # 1.7 TH/MM3 (1.0-4.8); MEAN CELL VOLUME 84.7 FL (80.0-100.0); MEAN CORPUSCULAR HEMOGLOBIN 28.4 PG (27.0-34.0); MEAN CORPUSCULAR HGB CONC 33.6 % (32.0-36.0); MONO % 5.9 % (0.0-8.0); PLATELET COUNT 124 TH/MM3 (150-450); RED BLOOD COUNT 3.66 MIL/MM3 (4.00-5.30); RED CELL DISTRIBUTION WIDTH 15.8 % (11.6-17.2); WHITE BLOOD COUNT 9.3 TH/MM3 (4.0-11.0)
[2016-04-01 07:30] LABS: BICARBONATE 21.7 MEQ/L (21.0-32.0); MAGNESIUM 1.7 MG/DL (1.5-2.5); POTASSIUM 3.7 MEQ/L (3.5-5.1)
[2016-04-01] MEDS: MORPHINE SULFATE 4 MG/ML INJ IV PRN ×3 (07:53→21:59)
[2016-04-01] MEDS: FLUTICASONE PROPIONATE 110 MCG/ACT 12 GM INHALER INH SCH ×2 (08:24→21:00)
[2016-04-01] MEDS: SODIUM CHLORIDE 0.9% FLUSH 5 ML FLUSH FLUSH SCH ×2 (08:24→21:59)
[2016-04-01] MEDS: THIAMINE HCL 100 MG TAB PO SCH (08:24)
[2016-04-01] MEDS: METOPROLOL TARTRATE 25 MG TAB PO SCH (08:24)
[2016-04-01] MEDS: DOCUSATE SODIUM 100 MG CAP PO SCH ×2 (08:25→21:00)
[2016-04-01] MEDS: PANTOPRAZOLE SOD 40 MG DELAYED RELEASE TAB PO SCH (08:25)
[2016-04-01] MEDS: SPIRONOLACTONE 25 MG TAB PO SCH (08:25)
--- NOTE | 2016-04-01 11:46 | PD.CARD.PN ---
Subjective Subjective Remarks Minimal chest pain now with coughing, decreased shortness of breath Objective Medications Current Medications Medications (Trade) Dose Ordered Sig/Digna Route Start Time Stop Time Status Last Admin (NS Flush) 2 ml UNSCH PRN FLUSH 03/30/16 16:30 (NS Flush) 2 ml BID FLUSH 03/30/16 21:00 04/01/16 08:24 (Tylenol) 650 mg Q4H PRN PO 03/30/16 16:30 (Zofran Inj) 4 mg Q6H PRN IVP 03/30/16 16:30 (Colace) 100 mg Q12HR PO 03/30/16 21:00 04/01/16 08:25 (Morphine Inj) 2 mg Q3H PRN IV 03/30/16 16:30 04/01/16 07:53 (Narcan Inj) 0.4 mg UNSCH PRN IV 03/30/16 16:30 (Xanax) 0.25 mg BID PRN PO 03/30/16 16:45 (Lipitor) 80 mg HS PO 03/30/16 21:00 03/31/16 20:39 (Synthroid) 50 mcg DAILY@06 PO 03/31/16 06:00 04/01/16 06:00 (Lopressor) 25 mg DAILY PO 03/31/16 09:00 04/01/16 08:24 (Aldactone) 25 mg DAILY PO 03/31/16 09:00 04/01/16 08:25 (Nitrostat Sl) 0.4 mg Q5M PRN SL 03/30/16 16:45 03/31/16 01:28 (D50w (Vial) Inj) 25 ml UNSCH PRN IV PUSH 03/30/16 16:45 (Glucagon Inj) 1 mg UNSCH PRN OTHER 03/30/16 16:45 (Nitroglycerin 2% Oint) 1 inch Q6HR TOPICAL 03/31/16 01:20 04/01/16 06:00 (Protonix) 40 mg DAILY PO 03/31/16 09:00 04/01/16 08:25 (Heparin Inj) 5,000 units UNSCH PRN IV 03/31/16 20:45 Heparin Sodium (Porcine) 2500 units 2,500 units UNSCH PRN IV 03/31/16 20:45 (Heparin-D5W Inj) 250 ml @ 0 mls/hr TITRATE IV 03/31/16 14:45 Thiamine HCl 100 mg 100 mg DAILY PO 04/01/16 09:00 04/01/16 08:24 (Zithromax Inj/ NS 250 ml Inj) 250 ml @ 250 mls/hr Q24H IV 03/31/16 20:00 03/31/16 20:40 Fluticasone Propionate 1 puff 1 puff BID INH 03/31/16 21:00 Potassium Chloride/Sodium Chloride 1,000 ml @ 65 mls/hr [id number] IV 04/01/16 12:00 04/01/16 11:27 Sodium Phosphate 15 mmol/Sodium Chloride 155 ml @ 38.75 mls/ hr ONCE ONCE IV 04/01/16 13:00 04/01/16 16:59 (Coumadin Consult Pharmacy) 0 ml @ 0 mls/hr UNSCH OTHER 04/01/16 11:15 (Coumadin) 4 mg DAILY@16 PO 04/01/16 16:00 (Coumadin Booklet) 1 ONCE ONCE XX 04/01/16 16:00 04/01/16 16:01 Vital Signs / I&O Vital Signs Date Time Temp Pulse Resp B/P Pulse Ox O2 Delivery O2 Flow Rate FiO2 04/01/16 11:00 86 04/01/16 10:20 98 Nasal Cannula 3.00 04/01/16 10:00 83 04/01/16 09:00 85 04/01/16 08:00 98.0 86 20 94/54 98 04/01/16 08:00 80 04/01/16 07:00 86 04/01/16 06:00 92 04/01/16 05:00 94 04/01/16 04:00 92 04/01/16 03:39 98.6 85 22 99/61 98 04/01/16 03:00 92 04/01/16 02:00 92 04/01/16 01:00 92 04/01/16 00:00 94 03/31/16 23:40 98.5 100 22 96/62 97 03/31/16 23:00 92 03/31/16 22:00 94 03/31/16 21:13 Nasal Cannula 3.00 03/31/16 21:00 94 03/31/16 20:00 94 03/31/16 19:25 98.5 94 22 94/60 97 03/31/16 19:00 92 03/31/16 18:00 92 03/31/16 17:00 91 03/31/16 16:00 97.9 88 22 91/59 98 03/31/16 15:56 90 03/31/16 15:00 88 03/31/16 14:00 86 03/31/16 13:00 85 03/31/16 12:00 83 03/31/16 12:00 98.0 82 22 95/56 97 03/31/16 11:55 96 Venturi Mask 40 I/O 03/31/16 03/31/16 03/31/16 04/01/16 04/01/16 04/01/16 07:00 15:00 23:00 07:00 15:00 23:00 Intake Total 713 ml Output Total 600 ml Balance 713 ml -600 ml Intake Oral 500 ml IV Total 213 ml Output Urine Total 600 ml # Voids 3 3 Physical Exam GENERAL: NAD, sleeping comfortably on my arrival SKIN: Warm and dry. HEAD: Atraumatic. Normocephalic. EYES: Pupils equal and round. No scleral icterus. No injection or drainage. ENT: No nasal bleeding or discharge. Mucous membranes pink and moist. NECK: Trachea midline. No JVD. CARDIOVASCULAR: Regular rate and rhythm. RESPIRATORY: No accessory muscle use. Decreased breath sounds bilaterally GASTROINTESTINAL: Abdomen soft, non-tender, nondistended. Hepatic and splenic margins not palpable. MUSCULOSKELETAL: Extremities without clubbing, cyanosis, or edema. No obvious deformities. NEUROLOGICAL: Awake and alert. No obvious cranial nerve deficits. Motor grossly within normal limits. Five out of 5 muscle strength in the arms and legs. Normal speech. PSYCHIATRIC: Appropriate mood and affect; insight and judgment normal. Laboratory Laboratory Tests Test 03/31/16 03/31/16 03/31/16 03/31/16 14:05 15:07 16:52 21:41 Lactic Acid Level 2.0 mmol/L Prothrombin Time 14.1 SEC Prothromb Time International 1.3 RATIO Ratio Activated Partial 41.1 SEC 40.1 SEC Thromboplast Time Blood Gas Puncture Site LT RADIAL Blood Gas Patient Temperature 98.6 Blood Gas HCO3 16 mmol/L Blood Gas Base Excess -6.8 mmol/L Blood Gas Oxygen Saturation 95 % Arterial Blood pH 7.46 Arterial Blood Partial 24 mmHg Pressure CO2 Arterial Blood Partial 91 mmHg Pressure O2 Arterial Blood Oxygen Content 15.1 Vol % Arterial Blood 2.2 % Carboxyhemoglobin Arterial Blood Methemoglobin 0.9 % Blood Gas Hemoglobin 11.3 G/DL Oxygen Delivery Device NASAL CANNULA Blood Gas Liter Flow 3 L/M Test 04/01/16 06:05 White Blood Count 9.3 TH/MM3 Red Blood Count 3.66 MIL/MM3 Hemoglobin 10.4 GM/DL Hematocrit 31.0 % Mean Corpuscular Volume 84.7 FL Mean Corpuscular Hemoglobin 28.4 PG Mean Corpuscular Hemoglobin 33.6 % Concent Red Cell Distribution Width 15.8 % Platelet Count 124 TH/MM3 Mean Platelet Volume 8.3 FL Neutrophils (%) (Auto) 75.0 % Lymphocytes (%) (Auto) 18.4 % Monocytes (%) (Auto) 5.9 % Eosinophils (%) (Auto) 0.1 % Basophils (%) (Auto) 0.6 % Neutrophils # (Auto) 6.9 TH/MM3 Lymphocytes # (Auto) 1.7 TH/MM3 Monocytes # (Auto) 0.5 TH/MM3 Eosinophils # (Auto) 0.0 TH/MM3 Basophils # (Auto) 0.1 TH/MM3 CBC Comment DIFF FINAL Differential Comment Activated Partial 39.3 SEC Thromboplast Time Sodium Level 133 MEQ/L Potassium Level 3.7 MEQ/L Chloride Level 101 MEQ/L Carbon Dioxide Level 21.7 MEQ/L Anion Gap 10 MEQ/L Blood Urea Nitrogen 15 MG/DL Creatinine 1.09 MG/DL Estimat Glomerular Filtration 54 ML/MIN Rate Random Glucose 132 MG/DL Calcium Level 7.8 MG/DL Phosphorus Level 1.6 MG/DL Magnesium Level 1.7 MG/DL Albumin 2.6 GM/DL Assessment and Plan Problem List: (1) Pulmonary embolism (2) Pulmonary infarct (3) NSTEMI (non-ST elevated myocardial infarction) (4) CHF (congestive heart failure) (5) CAD (coronary artery disease) (6) Presence of cardiac defibrillator Assessment and Plan 1) Chest pain now somewhat pleuritic, no further pressure 2) NSTEMI Type 2, can not rule out Type 1, 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
[2016-04-01] MEDS ORDERED: NS + KCL 20 MEQ INJ 1,000 ML IV SCH (12:00)
[2016-04-01] MEDS ORDERED: SODIUM PHOSPHATE INJ 15 MMOL in SODIUM CHLORIDE 0.9% INJ 150 ML IV ONE (13:00)
[2016-04-01] MEDS: WARFARIN SOD 4 MG TAB PO SCH (18:03)
[2016-04-01] MEDS: predniSONE 10 MG TAB PO SCH (21:59)
[2016-04-01] MEDS: ATORVASTATIN 40 MG TAB PO SCH (22:00)
--- NOTE | 2016-04-01 23:29 | EKG ---
Date Performed: 03/31/2016 Time Performed: 03:15:08 PTAGE: 45 years EKG: Sinus tachycardia with PVC(s) Right axis deviation Possible inferior infarct - age undeterm ined Nonspecific ST and T wave abnormalities Low QRS voltages in precordial leads Abnormal ECG PREVIOUS TRACING : 03/30/2016 14.04 Compared to prior tracing no significant change DOCTOR: Zeke Colvin Interpretating Date/Time 04/01/2016 23:26:51
--- NOTE | 2016-04-01 23:39 | HHI.PR ---
Subjective Remarks Patient seen this morning around 11 AM. Says she is feeling much better. Still a little short of breath. Chest pain improving but still present. Says she is eating well. Denies any nausea or vomiting. No further hemoptysis. Objective Vital Signs Date Time Temp Pulse Resp B/P Pulse Ox O2 Delivery O2 Flow Rate FiO2 04/01/16 20:16 97 21 04/01/16 18:00 84 04/01/16 17:00 84 04/01/16 16:00 80 04/01/16 15:34 97.9 84 20 99/64 96 04/01/16 15:16 84 04/01/16 14:00 84 04/01/16 12:00 82 04/01/16 12:00 98.2 86 20 98/58 98 04/01/16 11:00 86 04/01/16 10:20 98 Nasal Cannula 3.00 04/01/16 10:00 83 04/01/16 09:00 85 04/01/16 08:00 98.0 86 20 94/54 98 04/01/16 08:00 80 04/01/16 07:00 86 04/01/16 06:00 92 04/01/16 05:00 94 04/01/16 04:00 92 04/01/16 03:39 98.6 85 22 99/61 98 04/01/16 03:00 92 04/01/16 02:00 92 04/01/16 01:00 92 04/01/16 00:00 94 03/31/16 23:40 98.5 100 22 96/62 97 I/O 03/31/16 03/31/16 03/31/16 04/01/16 04/01/16 04/01/16 07:00 15:00 23:00 07:00 15:00 23:00 Intake Total 713 ml 1771 ml Output Total 600 ml 780 ml Balance 713 ml -600 ml 991 ml Intake Oral 500 ml 875 ml IV Total 213 ml 896 ml Output Urine Total 600 ml 780 ml # Voids 3 3 # Bowel Movements 0 Result Diagram: 04/01/1660404/01/16604 Objective Remarks GENERAL: patient sitting up in bed. Awake. Alert and oriented 3. SKIN: Warm and dry. HEAD: Normocephalic. EYES: No scleral icterus. No injection or drainage. NECK: Supple, trachea midline. No JVD . CARDIOVASCULAR: Regular rate and rhythm without murmurs, gallops, or rubs. RESPIRATORY: Breath sounds equal bilaterally. No accessory muscle use. GASTROINTESTINAL: Abdomen soft, non-tender, nondistended. MUSCULOSKELETAL: No cyanosis, or edema. BACK: Nontender without obvious deformity. No CVA tenderness. A/P Assessment and Plan Acute pulmonary embolism. -Due to noncompliance. Patient has history of bilateral DVTs. Ran out of warfarin one-month prior to admission here. Continue treatment on heparin drip. Start warfarin. -We will need to start [employer] teaching for outpatient bridge. This will be difficult as patient is self-pay. Appreciate case management assistance. History of cardiomyopathy. With ejection fraction 20%. Has AICD in place. Patient previously refused cardiothoracic surgery. Appreciate cardiology assistance. Continue beta tamanna //Community-acquired pneumonia as seen on CT. //Hemoptysis. Appears to be improving. Possible COPD exacerbation Pulmonology consuls it. Continue duo nebs as necessary, prednisone, azithromycin Hypothyroidism. Chronic. Continue home education. Prophylaxis. Patient will be on therapeutic anticoagulation for pulmonary embolism. Cem Roldan MD Apr 01, 2016 23:39
--- NOTE | 2016-04-01 23:43 | EKG ---
Date Performed: 03/30/2016 Time Performed: 14:04:36 PTAGE: 45 years EKG: Sinus tachycardia Possible left atrial abnormality Possible inferior infarct - age undeterm ined Nonspecific ST and T wave abnormalities Abnormal ECG PREVIOUS TRACING : 01/13/2013 10.33 Compared to prior tracing no significant change DOCTOR: Zeke Colvin Interpretating Date/Time 04/01/2016 23:42:35
[2016-04-02] VITALS (15 sets, daily range): BP systolic 96–111; BP diastolic 52–74; PULSE 72–89; RESP 20; TEMP 98–98.6; O2SAT 96–97
[2016-04-02] MEDS: MORPHINE SULFATE 4 MG/ML INJ IV PRN ×3 (02:22→11:40)
[2016-04-02] MEDS: RESP: ALBUTEROL 2.5 MG/IPRATROPIUM 0.5 MG NEB (SCH) NEB ×3 (04:11→16:00)
[2016-04-02 06:14] LABS: AUTOMATED NEUTROPHIL # 3.7 TH/MM3 (1.8-7.7); BASOPHIL % 0.2 % (0.0-2.0); EOSINOPHIL % 0.1 % (0.0-4.0); HEMATOCRIT 30.8 % (35.0-46.0); HEMO FLAGS DIFF FINAL; LYMPH % 13.8 % (9.0-44.0); LYMPHOCYTE # 0.6 TH/MM3 (1.0-4.8); MEAN CELL VOLUME 84.9 FL (80.0-100.0); MEAN CORPUSCULAR HEMOGLOBIN 27.8 PG (27.0-34.0); MEAN CORPUSCULAR HGB CONC 32.7 % (32.0-36.0); MONO % 5.7 % (0.0-8.0); NEUT % 80.2 % (16.0-70.0); PLATELET COUNT 119 TH/MM3 (150-450); RED BLOOD COUNT 3.62 MIL/MM3 (4.00-5.30); RED CELL DISTRIBUTION WIDTH 16.3 % (11.6-17.2); WHITE BLOOD COUNT 4.6 TH/MM3 (4.0-11.0)
[2016-04-02] MEDS: LEVOTHYROXINE SODIUM 50 MCG TAB PO SCH (06:25)
[2016-04-02] MEDS: INSULIN ASPART SUPPLEMENTAL SCALE SQ SCH ×2 (06:25→11:41)
[2016-04-02] MEDS: NITROGLYCERIN 2% OINT 1 GM PACKET TOPICAL SCH ×3 (06:25→11:41)
[2016-04-02 06:26] LABS: INTERNATIONAL NORMALIZED RATIO 1.2 RATIO
[2016-04-02 06:32] LABS: BICARBONATE 20.4 MEQ/L (21.0-32.0); MAGNESIUM 1.8 MG/DL (1.5-2.5); POTASSIUM 3.7 MEQ/L (3.5-5.1)
[2016-04-02 07:43] LABS: APTT (PATIENT) 32.8 SEC (24.3-30.1)
[2016-04-02] MEDS: SPIRONOLACTONE 25 MG TAB PO SCH (08:45)
[2016-04-02] MEDS: PANTOPRAZOLE SOD 40 MG DELAYED RELEASE TAB PO SCH (08:45)
[2016-04-02] MEDS: FLUTICASONE PROPIONATE 110 MCG/ACT 12 GM INHALER INH SCH (08:45)
[2016-04-02] MEDS: SODIUM CHLORIDE 0.9% FLUSH 5 ML FLUSH FLUSH SCH (08:45)
[2016-04-02] MEDS: METOPROLOL TARTRATE 25 MG TAB PO SCH (08:45)
[2016-04-02] MEDS: THIAMINE HCL 100 MG TAB PO SCH (08:45)
[2016-04-02] MEDS: DOCUSATE SODIUM 100 MG CAP PO SCH (08:45)
[2016-04-02] MEDS: predniSONE 10 MG TAB PO SCH (08:45)
[2016-04-02] MEDS ORDERED: AZITHROMYCIN 250 MG TAB PO SCH (09:00)
[2016-04-02] MEDS ORDERED: ENOXAPARIN SODIUM 80 MG/0.8 ML SYRINGE SQ SCH (11:00)
[2016-04-02] MEDS ORDERED: VENTAER INH (13:39)
[2016-04-02] MEDS ORDERED: PRED10 PO (13:39)
[2016-04-02] MEDS ORDERED: WARF-20 PO (13:39)
[2016-04-02] MEDS ORDERED: METO25TA3 PO (13:39)
[2016-04-02] MEDS ORDERED: ALPR0.25 PO (13:39)
[2016-04-02] MEDS ORDERED: LISI-515 PO (13:39)
[2016-04-02] MEDS ORDERED: ZITH250T PO (13:39)
[2016-04-02] MEDS ORDERED: PANT40TA3 PO (13:39)
[2016-04-02] MEDS ORDERED: METF1000 PO (13:39)
[2016-04-02] MEDS ORDERED: ENOX80P SQ (13:43)
[2016-04-02] MEDS ORDERED: ASPI1TAB69 PO (13:45)
[2016-04-02] MEDS ORDERED: LEVO50TA4 PO (13:48)
[2016-04-02] MEDS ORDERED: ATOR1TAB18 PO (13:48)
[2016-04-02] MEDS ORDERED: LANTUS2P SQ (13:48)
[2016-04-02] MEDS ORDERED: FURO20TA PO (13:48)
[2016-04-02] MEDS ORDERED: SPIR25TA PO (13:48)
[2016-04-02] MEDS ORDERED: WARFARIN SOD 1 MG TAB PO SCH (16:00)
[2016-04-02 16:04] LABS: APTT (PATIENT) 35.7 SEC (24.3-30.1)
[2016-04-02] MEDS: WARFARIN SOD 4 MG TAB PO SCH (16:50)
--- NOTE | 2016-04-07 08:36 | RSPPFT ---
DATE OF PROCEDURE: 04/01/16 COMMENTS: Spirometry demonstrates an FEV1 of 0.9 at 38% of predicted, FVC of 1.1 at 38%, FEF 25-75 is 37% of predicted. Post-bronchodilator study demonstrated minimal improvements in the FVC. Flow volume loops appear atypical suggesting a restrictive defect. IMPRESSION: 1. Moderately severe restrictive disease. 2. Additional mild to moderate obstructive disease. 3. Mild response to use of bronchodilator indicating some reversibility.
--- NOTE | 2016-04-14 18:23 | HHI.DS ---
Discharge Summary Admission Date Mar 30, 2016 at 16:11 Discharge Date: Apr 02, 2016 Admitting Diagnosis nstemi (1) NSTEMI (non-ST elevated myocardial infarction) ICD Code: I21.4 Procedures no invasive procedures performed. Brief History - From Admission History the patient, ER physician notes, and review of medical records. patient reported that she came to the hospital because she has been having chest pains starting Wednesday evening. stated it started with 1 week history of cough, congestion,. No fever. Patient states that on Wednesday, she then started having severe shortness of breath followed by chest pains. She describes chest pains of midsternal, or squeezing in nature, no radiation. It was associated with some diaphoresis. Denies any blood in her stool or in her urine. Denies any nausea/vomiting/diarrhea. Denies any syncopal episodes. Reports of history of CADstatus post stent at the age of [age] years old. Also reported CHFstatus post AICD. States she stopped taking all her medications because she ran out of insurance. Patient is a chronic smoker half a pack a day. But denies being on any nebulizer or inhaler treatments at home so far. She says she also has history of DVT for which she was on Coumadin. Also stopped this about 3 or 4 weeks ago. patient initially presented to [facility] emergency room. Her workup revealed elevated troponins. Per ER records, patient's case was discussed with branch officer consulting sales manager by ER physician. She was started on heparin drip, nitroglycerin sublingual, and morphine for her non-ST elevation VT and transferred to the main hospital for coronary angiogram. At the time of my exam, patient was initially sleeping comfortably. However as soon as I wake her up and talked to her, she gets somewhat anxious and she did have some hyperventilation and is complaining of quite a bit of chest pains. She reports the chest pain is relieved by nitroglycerin although is still persistent around 4. Imaging Last Impressions Liver Ultrasound 03/31/16 0000 Signed Impressions: Service Date/Time: Thursday, March 31, 2016 14:06 - CONCLUSION: 1. The liver is mildly prominent with no focal lesion. 2. Status post cholecystectomy. Gerber Pimentel MD CT Angiography 03/31/16 0000 Signed Impressions: Service Date/Time: Thursday, March 31, 2016 12:19 - CONCLUSION: 1. Pulmonary emboli within the lower lobe branches of the pulmonary arteries bilaterally. 2. Bibasilar alveolar consolidations consistent with pneumonia and atelectasis assess for pulmonary infarcts. 3. Tiny right pleural effusion. 4. Cardiomegaly and coronary artery calcifications. 5. Nonspecific pretracheal and precarinal mediastinal lymphadenopathy. Richard Powell MD Chest X-Ray 03/30/16 1425 Signed Impressions: Service Date/Time: Wednesday, March 30, 2016 14:30 - CONCLUSION: 1. Pacer. 2. Compensated cardiomegaly. Reginald Atkinson MD FACR PE at Discharge GENERAL: patient sitting up in bed. Awake. Alert and oriented 3. patient appears comfortable. no acute changes on exam. SKIN: Warm and dry. HEAD: Normocephalic. EYES: No scleral icterus. No injection or drainage. NECK: Supple, trachea midline. No JVD . CARDIOVASCULAR: Regular rate and rhythm without murmurs, gallops, or rubs. RESPIRATORY: Breath sounds equal bilaterally. No accessory muscle use. GASTROINTESTINAL: Abdomen soft, non-tender, nondistended. MUSCULOSKELETAL: No cyanosis, or edema. BACK: Nontender without obvious deformity. No CVA tenderness. Pt update on day of discharge patient says she feels well. reports chest pain resolved. Wishes to go home. No further hemoptysis. Hospital Course Patient underwent echocardiogram which showed ejection fraction 1520%, and cardiology was consulted, however no catheterization was performed due to known multivessel ornery artery disease. Patient underwent CT and grandma showed pulmonary embolism. She was started on anticoagulation, and bridged to warfarin. She did have slight hypostasis which resolved. She was instructed on Lovenox usage, and will need to be on this until INR is therapeutic. Appreciate pulmonary assistance.. For problem-based summary from most recent progress note, please see below. Acute pulmonary embolism. -Due to noncompliance. Patient has history of bilateral DVTs. Ran out of warfarin one-month prior to admission here. Continue treatment on heparin drip. Start warfarin. -We will need to start Lovenox teaching for outpatient bridge. This will be difficult as patient is self-pay. Appreciate case management assistance. History of cardiomyopathy. With ejection fraction 20%. Has AICD in place. Patient previously refused cardiothoracic surgery. Appreciate cardiology assistance. Continue beta tamanna //Community-acquired pneumonia as seen on CT. //Hemoptysis. Appears to be improving. Possible COPD exacerbation Pulmonology consuls it. Continue duo nebs as necessary, prednisone, azithromycin Hypothyroidism. Chronic. Continue home education. Prophylaxis. Patient will be on therapeutic anticoagulation for pulmonary embolism. Pt Condition on Discharge: Good Discharge Disposition: Discharge Home Discharge Time: <= 30 minutes Discharge Instructions DIET: Follow Instructions for: Heart Healthy Diet, Diabetic Diet Activities you can perform: Regular-No Restrictions Follow up Referrals: PCP Follow-up - 2-3 Days with Geeta Miranda MD New Medications: Albuterol 18 GM Inh (Ventolin Hfa 18 GM Inh) 90 Mcg/Act Aer 1 PUFF INH Q4H PRN SHORTNESS OF BREATH #1 Ref 0 INHALER Aspirin (Aspirin) 81 Mg Tabdr 81 MG PO DAILY Wait until you are off of Lovenox injections to start your aspirin. heart Days 30 TAB Enoxaparin Inj (Lovenox Inj) 80 mg/0.8 ML Syr 70 MG SQ BID Blood Clot Prevention #10 Ref 0 SYRINGE Azithromycin (Zithromax) 250 Mg Tab 1 TAB PO DAILY COPD exacerbation #3 TAB Pantoprazole (Pantoprazole) 40 Mg Tab 40 MG PO DAILY Reflux Days 30 TAB Prednisone (Prednisone) 10 Mg Tab 10 MG PO BID take 1 tablet daily for three days then stop COPD #3 TAB Changed Medications: Lisinopril (Lisinopril) 20 Mg Tab 5 MG PO DAILY #30 Ref 0 TAB (Changed from: 25 MG) Metoprolol Tartrate (Metoprolol Tartrate) 25 Mg Tab 12.5 MG PO BID heart #30 Ref 0 TAB (Changed from: 25 MG; DAILY) Continued Medications: Alprazolam (Alprazolam) 0.25 Mg Tab 0.25 MG PO BID PRN ANXIETY #6 Ref 0 TAB (This prescription has been renewed) Atorvastatin (Atorvastatin) 80 Mg Tab 80 MG PO HS Cholesterol Management #30 Ref 0 TAB (This prescription has been renewed) Furosemide (Furosemide) 20 Mg Tab 20 MG PO DAILY heart #30 Ref 0 TAB (This prescription has been renewed) Insulin Glargine Inj (Lantus Inj) 1,000 Unit/10 Ml Vial 25 UNITS SQ HS Blood Sugar Management Days 30 Ref 0 VIAL (This prescription has been renewed) Levothyroxine (Levothyroxine) 50 Mcg Tab 50 MCG PO DAILY Thyroid #30 Ref 0 TAB (This prescription has been renewed) Metformin (Metformin) 1,000 Mg Tab 1000 MG PO BIDPC With meals Blood Sugar Management #60 Ref 0 TAB (This prescription has been renewed) Spironolactone (Spironolactone) 25 Mg Tab 25 MG PO DAILY heart #30 Ref 0 TAB (This prescription has been renewed) Warfarin (Warfarin) 4 Mg Tab 4 MG PO DAILY Blood Clot Prevention #30 Ref 0 TAB (This prescription has been renewed) Cem Roldan MD Apr 14, 2016 18:23
[2016-06-30] MEDS ORDERED: CARV3.12 PO ×2 (10:27→10:46)
[2016-06-30] MEDS ORDERED: VITA250T25 PO (10:27)
[2016-06-30] MEDS ORDERED: SPIR25TA PO ×2 (10:27→10:46)
[2016-06-30] MEDS ORDERED: NITR0.4S SL (10:27)
[2016-06-30] MEDS ORDERED: LANTUS2P SQ ×2 (10:40→10:47)
[2016-06-30] MEDS ORDERED: LISI-519 PO (10:45)
[2016-06-30] MEDS ORDERED: WARF-20 PO (10:45)
[2016-06-30] MEDS ORDERED: LEVO50TA4 PO (10:46)
[2016-06-30] MEDS ORDERED: FURO20TA PO (10:46)
[2016-07-13] MEDS ORDERED: VANC1000P IV (09:53)
[2016-07-13] MEDS ORDERED: LANTUS2P SQ (09:53)
== END 2016-04-02 17:05 | disposition home or self-care (01) | DRG 280 ==
LOC: PHED 13:46 → PHEDA 16:11 → HCPC 22:55
PROVIDERS: ADMIT Internal Medicine; ATTEND Internal Medicine
DX: I21.4 Non-ST elevation (NSTEMI) myocardial infarction (principal); I26.99 Other pulmonary embolism without acute cor pulmonale; E87.2 Acidosis; I50.9 Heart failure, unspecified; E11.9 Type 2 diabetes mellitus without complications; J18.9 Pneumonia, unspecified organism; R04.2 Hemoptysis; J44.1 Chronic obstructive pulmonary disease with (acute) exacerbation; I25.119 Atherosclerotic heart disease of native coronary artery with unspecified angina pectoris; M19.90 Unspecified osteoarthritis, unspecified site; I10 Essential (primary) hypertension; E78.00 Pure hypercholesterolemia, unspecified; B19.20 Unspecified viral hepatitis C without hepatic coma; F17.210 Nicotine dependence, cigarettes, uncomplicated; E03.9 Hypothyroidism, unspecified; R06.4 Hyperventilation; E78.5 Hyperlipidemia, unspecified; F41.9 Anxiety disorder, unspecified; I25.5 Ischemic cardiomyopathy; Z91.14 Patient's other noncompliance with medication regimen; Z95.810 Presence of automatic (implantable) cardiac defibrillator; Z86.711 Personal history of pulmonary embolism; Z79.84 Long term (current) use of oral hypoglycemic drugs; Z86.718 Personal history of other venous thrombosis and embolism; Z95.5 Presence of coronary angioplasty implant and graft
CPT/HCPCS: 36600; 71010; 71275; 76705; 80048; 80053; 80069; 80074; 80076; 82247; 82248; 82550; 82552; 82805; 82948; 83605; 83690; 83735; 83880; 84484; 85025; 85610; 85730; 87040; 87070; 87205; 93005; 93306; 94060; 94640; 94664; 96361; 96365; 96374; J0456; J1644; J1650; J1815; J2270; J3370; J3480; J7030; J7040; J7050; J7512; Q9967

== ENCOUNTER 2016-05-11 08:16 | Inpatient (IN) | payer OTHER ==
[2016-05-11] VITALS (9 sets, daily range): BP systolic 103–113; BP diastolic 55–77; PULSE 65–85; RESP 17–24; TEMP 97.4–98.7; O2SAT 96–99
[~2016-05-11] VITALS: Ht 154.9 cm; Wt 69.1 kg
[~2016-05-11 08:16] MED LIST changes: -ALPR.25 PO; +ALPR0.25 PO; +ASPI1TAB69 PO; -ASPI81TA82 PO; +ATOR1TAB18 PO; -ATOR80TA41 PO; +ENOX80P SQ; -FURO20 PO; +FURO20TA PO; -LANTUS2P SC; +LANTUS2P SQ; +LISI-515 PO; -LISI2.5T3 PO; +METF1000 PO; -METF500 PO; +METO25TA3 PO; -METO25TA6 PO; -NOVOLOGP2 SQ; +PANT40TA3 PO; +PRED10 PO; +VENTAER INH; +ZITH250T PO
--- NOTE | 2016-05-11 08:46 | PD ---
HPI Chief Complaint: Chest Pain Time Seen by Provider: 08:34 Travel History International Travel<30 days: No Contact w/Intl Traveler<30days: No Traveled to known affect area: No History of Present Illness HPI This 45-year-old female says she is short of breath the last few days. She was admitted to the hospital in March of this year. At that time she had a troponin level of 30. She was found to have bilateral pulmonary emboli. She was released from the hospital on Lovenox and Coumadin. She also had cardiac evaluation at that time which showed that she had an ejection fraction of 15-20 % with moderate mitral regurgitation. She ran out of her Coumadin about a week ago. She has had increasing shortness of breath over the last 3 or 4 days. She says she gets short of breath with minimal exertion. In having some pain across her lower chest/upper epigastric area. Last night she had some vomiting. She has a history of coronary artery disease. She had stents placed in her 30s. She had a cardiac catheterization in November 2015 which showed multivessel coronary artery disease. She smokes. He says he vomited 4 times yesterday PFSH Past Medical History Hx Anticoagulant Therapy: Yes (Warfarin) Anemia: No Arthritis: Yes Asthma: No Autoimmune Disease: No Blood Disorders: No Bipolar Disorder: No Anxiety: Yes Depression: Yes Heart Rhythm Problems: No Cancer: No Cardiac Catheterization: Yes Cardiovascular Problems: Yes (CHF, defibrillator, [place] w/stents, DVT) High Cholesterol: Yes Chemotherapy: No Chest Pain: Yes Congestive Heart Failure: Yes COPD: Yes Cerebrovascular Accident: No Coronary Artery Disease: Yes Diabetes: Yes (Type 2 ) Diminished Hearing: No Endocrine: Yes GERD: Yes Genitourinary: No Headaches: No Hepatitis: No Hiatal Hernia: No Hypertension: Yes Kidney Stones: No Musculoskeletal: Yes (CARPAL TUNNEL) Neurologic: No Psychiatric: No Reproductive: No Respiratory: Yes (COPD) Migraines: No Myocardial Infarction: Yes (2003) Pancreatitis: No Radiation Therapy: No Renal Failure: No Schizophrenia: No Seizures: No Sickle Cell Disease: No Sleep Apnea: No Thyroid Disease: Yes Ulcer: No PNEUMOCCOCAL Vaccine (Year): 3 Menopausal: Yes : 5 Para: 3 : 2 Tubal Ligation: Yes Past Surgical History Abdominal Surgery: Yes (gb) AICD: Yes Appendectomy: No Cardiac Surgery: Yes (stents) Section: Yes (X 3) Cholecystectomy: Yes Coronary Artery Bypass Graft: No Coronary Stent: Yes (LAD) Ear Surgery: No Eye Surgery: No Genitourinary Surgery: No Gynecologic Surgery: Yes Oral Surgery: Yes Pacemaker: No Thoracic Surgery: No Tonsillectomy: No Other Surgery: Yes (c sections) Social History Alcohol Use: No Tobacco Use: No Substance Use: No Allergies-Medications (Allergen,Severity, Reaction): Coded Allergies: No Known Allergies (Unverified , 05/11/16) Reported Meds & Prescriptions Reported Meds & Active Scripts Active Aspirin 81 Mg Tabdr 81 Mg PO DAILY 30 Days Wait until you are off of Lovenox injections to start your aspirin. Metoprolol Tartrate 25 Mg Tab 12.5 Mg PO BID Metformin (Metformin HCl) 1,000 Mg Tab 1,000 Mg PO BIDPC With meals Review of Systems General / Constitutional: No: Fever, Chills Eyes: No: Diploplia, Blurred Vision HENT: No: Headaches, Vertigo Cardiovascular: Positive: Chest Pain or Discomfort, No: Palpitations Respiratory: Positive: Cough, Shortness of Breath Gastrointestinal: Positive: Vomiting, Abdominal Pain Genitourinary: No: Urgency, Frequency Musculoskeletal: No: Myalgias, Arthralgias Skin: No Rash, No Itching Neurologic: No: Weakness, Dizziness Endocrine: No: Heat Intolerance Hematologic/Lymphatic: No: Easy Bruising Physical Exam Narrative GENERAL: Well-developed female SKIN: Warm and dry. HEAD: Atraumatic. Normocephalic. EYES: Pupils equal and round. No scleral icterus. No injection or drainage. ENT: No nasal bleeding or discharge. Mucous membranes pink and moist. NECK: Trachea midline. No JVD. CARDIOVASCULAR: Regular rate and rhythm. No murmur appreciated. RESPIRATORY: No accessory muscle use. Clear to auscultation. Breath sounds equal bilaterally. GASTROINTESTINAL: Abdomen soft, non-tender, nondistended. Hepatic and splenic margins not palpable. MUSCULOSKELETAL: No obvious deformities. No clubbing. No cyanosis. No edema. NEUROLOGICAL: Awake and alert. No obvious cranial nerve deficits. Motor grossly within normal limits. Normal speech. PSYCHIATRIC: Appropriate mood and affect; insight and judgment normal. Data Data Last Documented VS Vital Signs Date Time Temp Pulse Resp B/P Pulse Ox O2 Delivery O2 Flow Rate FiO2 05/11/16 10:33 81 17 109/74 96 Room Air 05/11/16 08:23 98.7 Orders Electrocardiogram (05/11/16 08:43) Complete Blood Count With Diff (05/11/16 08:43) Comprehensive Metabolic Panel (05/11/16 08:43) Troponin I (05/11/16 08:43) B-Type Natriuretic Peptide (05/11/16 08:43) Prothrombin Time / Inr (Pt) (05/11/16 08:43) Act Partial Throm Time (Ptt) (05/11/16 08:43) Lipase (05/11/16 08:43) Urinalysis - C+S If Indicated (05/11/16 08:43) Chest, Single Ap (05/11/16 08:43) Heparin Infusion MAURI.Q1H (05/11/16 09:20) Heparin Inj (Heparin Inj) (05/11/16 09:30) Heparin Inj (Heparin Inj) (05/11/16 15:30) Heparin Inj (Heparin Inj) (05/11/16 15:30) Heparin-D5w Inj (Heparin-D5w Inj) (05/11/16 09:30) Cbc No Diff, Includes Plts (05/14/16 06:00) Act Partial Throm Time (Ptt) (05/11/16 16:20) Occult Blood (Hemoccult) Stool (05/11/16 09:20) Lactic Acid (05/11/16 10:20) Ondansetron Inj (Zofran Inj) (05/11/16 10:45) Morphine Inj (Morphine Inj) (05/11/16 10:45) Sodium Chlor 0.9% 1000 Ml Inj (Ns 1000 M (05/11/16 10:45) Ct Abd/Pel W/O Iv Contrast (05/11/16 ) Arterial Blood Gas (Abg) (05/11/16 ) Drug Screen, Random Urine (05/11/16 10:49) Admit Order (Ed Use Only) (05/11/16 ) Labs Laboratory Tests Test 05/11/16 08:33 White Blood Count 11.5 TH/MM3 Red Blood Count 4.44 MIL/MM3 Hemoglobin 11.2 GM/DL Hematocrit 35.8 % Mean Corpuscular Volume 80.7 FL Mean Corpuscular Hemoglobin 25.1 PG Mean Corpuscular Hemoglobin 31.1 % Concent Red Cell Distribution Width 17.2 % Platelet Count 234 TH/MM3 Mean Platelet Volume 7.6 FL Neutrophils (%) (Auto) 85.2 % Lymphocytes (%) (Auto) 9.3 % Monocytes (%) (Auto) 4.4 % Eosinophils (%) (Auto) 0.8 % Basophils (%) (Auto) 0.3 % Neutrophils # (Auto) 9.8 TH/MM3 Lymphocytes # (Auto) 1.1 TH/MM3 Monocytes # (Auto) 0.5 TH/MM3 Eosinophils # (Auto) 0.1 TH/MM3 Basophils # (Auto) 0.0 TH/MM3 CBC Comment DIFF FINAL Differential Comment Prothrombin Time 25.5 SEC Prothromb Time International 2.2 RATIO Ratio Activated Partial 33.0 SEC Thromboplast Time Sodium Level 132 MEQ/L Potassium Level 5.1 MEQ/L Chloride Level 95 MEQ/L Carbon Dioxide Level 16.4 MEQ/L Anion Gap 21 MEQ/L Blood Urea Nitrogen 31 MG/DL Creatinine 2.70 MG/DL Estimat Glomerular Filtration 19 ML/MIN Rate Random Glucose 165 MG/DL Calcium Level 8.5 MG/DL Total Bilirubin 2.3 MG/DL Aspartate Amino Transf 1461 U/L (AST/SGOT) Alanine Aminotransferase 474 U/L (ALT/SGPT) Alkaline Phosphatase 88 U/L Troponin I 0.59 NG/ML B-Type Natriuretic Peptide 1550 PG/ML Total Protein 7.9 GM/DL Albumin 3.3 GM/DL Lipase 250 U/L MDM Medical Decision Making Medical Screen Exam Complete: Yes Emergency Medical Condition: Yes Medical Record Reviewed: Yes Differential Diagnosis Differential includes acute coronary syndrome, CHF, DVT, pulmonary embolus Narrative Course Patient had pulmonary embolus documented in March of this year by CTA. Consideration was given to obtaining another CTA however her creatinine is 2.7. BUNs is 31. Her bilirubin is also elevated at 2.3. When she was here in March it was 1.6. EKG shows sinus rhythm. Configuration is similar to previous EKGs. Chest x-ray is compensated cardiomegaly. Of note her pro-time is 2.2 and this is after being off Coumadin for a week. She does have a history of hepatitis C. She says she has not been drinking recently. Patient did start complaining of some abdominal pain. On examination she has some right upper quadrant tenderness. SHe has a history of cholecystectomy. I have ordered a CT scan without contrast of the abdomen and pelvis. Case discussed with Dr. Burgess who has accepted the patient in transfer to [facility] intensive care unit Diagnosis Primary Impression: Acute kidney injury Additional Impression: Exertional dyspnea Alexander Thibodeaux MD May 11, 2016 08:46
[2016-05-11 08:56] LABS: AUTOMATED NEUTROPHIL # 9.8 TH/MM3 (1.8-7.7); BASOPHIL % 0.3 % (0.0-2.0); EOSINOPHIL # 0.1 TH/MM3 (0-0.4); EOSINOPHIL % 0.8 % (0.0-4.0); HEMATOCRIT 35.8 % (35.0-46.0); HEMO FLAGS DIFF FINAL; LYMPH % 9.3 % (9.0-44.0); LYMPHOCYTE # 1.1 TH/MM3 (1.0-4.8); MEAN CELL VOLUME 80.7 FL (80.0-100.0); MEAN CORPUSCULAR HEMOGLOBIN 25.1 PG (27.0-34.0); MEAN CORPUSCULAR HGB CONC 31.1 % (32.0-36.0); MONO % 4.4 % (0.0-8.0); NEUT % 85.2 % (16.0-70.0); PLATELET COUNT 234 TH/MM3 (150-450); RED BLOOD COUNT 4.44 MIL/MM3 (4.00-5.30); RED CELL DISTRIBUTION WIDTH 17.2 % (11.6-17.2); WHITE BLOOD COUNT 11.5 TH/MM3 (4.0-11.0)
[2016-05-11 09:04] LABS: CHLORIDE 95 MEQ/L (98-107); POTASSIUM 5.1 MEQ/L (3.5-5.1); SODIUM (NA) 132 MEQ/L (136-145)
[2016-05-11 09:08] LABS: ANION GAP 21 MEQ/L (5-15); BICARBONATE 16.4 MEQ/L (21.0-32.0); BLOOD UREA NITROGEN 31 MG/DL (7-18); INTERNATIONAL NORMALIZED RATIO 2.2 RATIO; PROTHROMBIN TIME - PATIENT 25.5 SEC (9.8-11.6)
[2016-05-11 09:11] LABS: ALT (GPT) 474 U/L (10-53); GLOMERULAR FILTRATION RATE 19 ML/MIN (>89)
[2016-05-11 09:12] LABS: TOTAL BILIRUBIN ADULT 2.3 MG/DL (0.2-1.0)
[2016-05-11 09:13] LABS: ALKALINE PHOSPHATASE 88 U/L (45-117)
[2016-05-11 09:20] LABS: AST (GOT) 1461 U/L (15-37)
--- NOTE | 2016-05-11 09:28 | RADHPO ---
EXAM DATE/TIME: 05/11/2016 09:13 [facility] COMPARISON: CHEST SINGLE AP, March 30, 2016, 14:30. INDICATIONS : Cough MEDICAL HISTORY : Chronic obstructive pulmonary disease. Cardiovascular disease. Diabetes mellitus type II. SURGICAL HISTORY : Cholecystectomy. defibrillator; cardiac stent; tubal ligation ENCOUNTER: Initial ACUITY: 3 days PAIN SCORE: 6/10 LOCATION: Bilateral upper chest FINDINGS: A single view of the chest demonstrates the lungs to be symmetrically aerated without evidence of mas s, infiltrate or effusion. Heart size is prominent a well compensated. Left subclavian unipolar pacer is radiographically intact. Osseous structures are intact. CONCLUSION: Compensated cardiomegaly. No acute cardiopulmonary process. Mason Ortega MD on May 11, 2016 at 9:25 Board Certified Radiologist. This report was verified electronically.
[2016-05-11] MEDS ORDERED: HEPARIN-D5W INJ 250 ML IV SCH (09:30)
[2016-05-11] MEDS ORDERED: HEPARIN SODIUM - IV 10,000 UNITS/10 ML VIAL IV ONE (09:30)
[2016-05-11] MEDS ORDERED: ONDANSETRON HCL 4 MG/2 ML VIAL IV PUSH ONE (10:45)
[2016-05-11] MEDS ORDERED: MORPHINE SULFATE 8 MG/ML INJ IV PUSH ONE (10:45)
[2016-05-11] MEDS: SODIUM CHLOR 0.9% 1000 ML INJ 1,000 ML IV SCH ×2 (11:18→22:40)
[2016-05-11 12:08] LABS: BLOOD GAS BASE EXCESS -9.4 mmol/L (-2-2); BLOOD GAS CARBOXYHEMOGLOBIN 3.3 % (0-4); BLOOD GAS HCO3 15 mmol/L (22-26); BLOOD GAS METHEMOGLOBIN 1.1 % (0-2); BLOOD GAS O2 HGB SATURATION 90 % (90-100); BLOOD GAS OXYGEN CONTENT 13.6 Vol % (12.0-20.0); BLOOD GAS PCO2 29 mmHG (38-42); BLOOD GAS PO2 81 mmHG (61-120); BLOOD GAS TOTAL HGB 10.6 G/DL (12.0-16.0); TEMP CORR TO 98.6
[2016-05-11 12:09] LABS: CRITICAL VALUE YES; DRAW SITE LT RADIAL; FIO2 21 %; NUMBER OF ARTERIAL PUNCTURES 1; OXYGEN DEVICE ROOM AIR; STAT YES; ULNAR PULSE PRESENT
--- NOTE | 2016-05-11 13:01 | RADHPO ---
EXAM DATE/TIME: 05/11/2016 10:58 [facility] COMPARISON: CT ABDOMEN & PELVIS W/O CONTRAST, July 19, 2015, 12:03. CT ABDOMEN & PELVIS W/O CONTRAST, June 02 013, 13:55. CT PULMONARY ANGIOGRAM, March 31, 2016, 12:19. INDICATIONS : Right upper quadrant pain and abnormal liver function test. ORAL CONTRAST: No oral contrast ingested. RADIATION DOSE: 11.38 CTDIvol (mGy) MEDICAL HISTORY : Cardiovascular disease. Hypertension. Pulmonary embolism, Anticoagulant therapy. SURGICAL HISTORY : Coronary artery stent. Cholecystectomy.Tubal ligation. ENCOUNTER: Initial ACUITY: 4 - 6 days PAIN SCALE: 3/10 LOCATION: Right upper quadrant TECHNIQUE: Volumetric scanning of the abdomen and pelvis was performed. Using automated exposure control and ad justment of the mA and/or kV according to patient size, radiation dose was kept as low as reasonably achievable to obtain optimal diagnostic quality images. FINDINGS: There is COPD changes within the lung bases. The heart is mildly enlarged. There is atherosclerotic p laquing in the coronary arteries. The appearance of the liver, spleen, pancreas, right adrenal gland and kidneys are within normal limi ts. The examination demonstrates a 1.7 x 1.5 cm left adrenal nodule. This measures 22 Hounsfield unit s on noncontrast imaging is indeterminate. The abdominal aorta is normal in caliber. No retroperitoneal adenopathy is seen. The visualized loops of small and large bowel in the upper abdomen are unremarkable. No free air or f ree fluid is present. There is no free fluid within the pelvis. No iliac or inguinal adenopathy is present. The visualized bony structures demonstrate degenerative changes in the spine but are otherwise intact . CONCLUSION: 1. 1.5 x 1.7 cm nonspecific left adrenal nodule. The left adrenal is minimally increased in size when compared to previous dated 06/02/12. It is stable when compared to previous dated 07/19/15 as such, it is likely benign. If there is strong clinical concern for malignancy MRI imaging could be performed for more definitive assessment. 2. The patient is post cholecystectomy. No intrahepatic biliary duct dilation is evident. 3. Cardiomegaly. Ricky Atkinson MD on May 11, 2016 at 12:54 Board Certified Radiologist. This report was verified electronically.
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
[2016-05-11 15:23] LABS: APTT (PATIENT) 34.1 SEC (24.3-30.1)
[2016-05-11] MEDS ORDERED: HEPARIN SODIUM - IV 10,000 UNITS/10 ML VIAL IV PRN ×2 (15:30)
--- NOTE | 2016-05-11 15:45 | PD.CONS ---
HPI History of Present Illness This is a 45 year old with a history of liver cirrhosis and hepatitis C, bilateral lower lobe pulmonary embolism, COPD, coronary artery disease with multiple stents, ischemic cardiomyopathy, and Type II DM, who came to the ER for evaluation of shortness of breath. She was hospitalized in March of this year and sent home on Lovenox and Coumadin. According to the EMR, she ran out of her coumadin about a week ago and started taking Aspirin 81mg iii tabs daily because she had no refills for her Coumadin. On admission, she was noted to have multiple laboratory abnormalities, including coagulopathy with an INR of 2.2- despite being off of her coumadin for a week, and significantly elevated in her LFTs. On 03/31/16, she was noted to have T. Bili 1.6, Direct 0.6 , Indirect 1.0, AST 994, ALT 427, Alk Phosph 84. Today, these were noted to be T. Bili 2.3, AST 1461, ALT 474, Alk Phosph 88. Ammonia 41. The patient reports that she was told 4-5 years ago that she had Hepatitis C and that she has never been treated. She does not recall ever being told that she has liver cirrhosis. She denies alcohol use and states she has never been a drinker. She denies the use of any Tylenol containing products. She denies any new medications. She does not have her gallbladder. She reports that she came to the ER for evaluation of shortness of breath, coughing, nausea, vomiting, and abdominal pain for a few days. The nausea and vomiting consisted of clear emesis- no hematemesis and her pain is a dull ache in her RUQ with no radiation. This is not related to food intake and she is actually hungry and requesting a diet. She reports that she is no longer having the nausea/ vomiting. She denies any bleeding. She does note that she feels that her abdomen is a little swollen for the past week. No fevers/chills. She has never had an egd/colonoscopy/liver biopsy. (Mary Lou Calabrese) PFSH Past Medical History Bilateral Lower lobe PE (04/10) Hypertension Type II Diabetes CAD, multiple stents Hyperlipidemia CHF COPD Hepatitis C Liver cirrhosis- in chart. Pt denies being told this History of DVT Hypothyroidism Past Surgical History AICD placement Cardiac stents and angiograms C-sections Tubal ligation Cholecystectomy (Mary Lou Calabrese) Coded Allergies: No Known Allergies (Unverified , 05/11/16) Medications Allergies Coded Allergies Type Severity Reaction Last Updated Verified No Known Allergies 05/11/16 No Active Scripts Medications Dose Route/Sig Days Date Category Dose Instructions Aspirin 81 Mg Tabdr 81 Mg PO DAILY 30 04/02/16 Rx Wait until you are off of Lovenox injections to start your aspirin. Metoprolol Tartrate 25 Mg Tab 12.5 Mg PO BID 04/02/16 Rx Metformin (Metformin HCl) 1,000 Mg Tab 1,000 Mg PO BIDPC 04/02/16 Rx With meals Family History Mother from leukemia and cdiff colitis. Paternal grandmother [place]. Maternal grandmother had heart disease as well. Social History / ppd , denies alcohol use at this time Meth IV use many years ago (Mary Lou Calabrese) Review of Systems Constitutional: COMPLAINS OF: Fatigue, DENIES: Weight loss, Change in appetite Respiratory: COMPLAINS OF: Cough, Shortness of breath Cardiovascular: DENIES: Chest pain Gastrointestinal: COMPLAINS OF: Abdominal pain, Nausea, Vomiting, Swelling of Abdomen, DENIES: Black stools, Bloody stools, Constipation, Diarrhea, Heartburn , Hematemesis Musculoskeletal: COMPLAINS OF: Back pain Hematologic/lymphatic: DENIES: Bruising Neurologic: DENIES: Headache Psychiatric: DENIES: Confusion (Mary Lou Calabrese) GI Exam Vitals I&O Vital Signs Date Time Temp Pulse Resp B/P Pulse Ox O2 Delivery O2 Flow Rate FiO2 05/11/16 13:24 79 18 106/70 96 Room Air 05/11/16 13:22 18 05/11/16 10:33 81 17 109/74 96 Room Air 05/11/16 08:23 98.7 85 18 104/66 96 Room Air Imaging Last Impressions Chest X-Ray 05/11/16 0843 Signed Impressions: Service Date/Time: Wednesday, May 11, 2016 09:13 - CONCLUSION: Compensated cardiomegaly. No acute cardiopulmonary process. Mason Ortega MD Abdomen/Pelvis CT 05/11/16 0000 Signed Impressions: Service Date/Time: Wednesday, May 11, 2016 10:58 - CONCLUSION: 1. 1.5 x 1.7 cm nonspecific left adrenal nodule. The left adrenal is minimally increased in size when compared to previous dated 06/02/12. It is stable when compared to previous dated 07/19/15 as such, it is likely benign. If there is strong clinical concern for malignancy MRI imaging could be performed for more definitive assessment. 2. The patient is post cholecystectomy. No intrahepatic biliary duct dilation is evident. 3. Cardiomegaly. Ricky Atkinson MD Laboratory Test 05/11/16 05/11/16 05/11/16 05/11/16 08:33 11:20 11:58 14:43 White Blood Count 11.5 TH/MM3 Red Blood Count 4.44 MIL/MM3 Hemoglobin 11.2 GM/DL Hematocrit 35.8 % Mean Corpuscular Volume 80.7 FL Mean Corpuscular Hemoglobin 25.1 PG Mean Corpuscular Hemoglobin 31.1 % Concent Red Cell Distribution Width 17.2 % Platelet Count 234 TH/MM3 Mean Platelet Volume 7.6 FL Neutrophils (%) (Auto) 85.2 % Lymphocytes (%) (Auto) 9.3 % Monocytes (%) (Auto) 4.4 % Eosinophils (%) (Auto) 0.8 % Basophils (%) (Auto) 0.3 % Neutrophils # (Auto) 9.8 TH/MM3 Lymphocytes # (Auto) 1.1 TH/MM3 Monocytes # (Auto) 0.5 TH/MM3 Eosinophils # (Auto) 0.1 TH/MM3 Basophils # (Auto) 0.0 TH/MM3 CBC Comment DIFF FINAL Differential Comment Prothrombin Time 25.5 SEC Prothromb Time International 2.2 RATIO Ratio Activated Partial 33.0 SEC 34.1 SEC Thromboplast Time Sodium Level 132 MEQ/L Potassium Level 5.1 MEQ/L Chloride Level 95 MEQ/L Carbon Dioxide Level 16.4 MEQ/L Anion Gap 21 MEQ/L Blood Urea Nitrogen 31 MG/DL Creatinine 2.70 MG/DL Estimat Glomerular Filtration 19 ML/MIN Rate Random Glucose 165 MG/DL Calcium Level 8.5 MG/DL Total Bilirubin 2.3 MG/DL Aspartate Amino Transf 1461 U/L (AST/SGOT) Alanine Aminotransferase 474 U/L (ALT/SGPT) Alkaline Phosphatase 88 U/L Troponin I 0.59 NG/ML B-Type Natriuretic Peptide 1550 PG/ML Total Protein 7.9 GM/DL Albumin 3.3 GM/DL Lipase 250 U/L Lactic Acid Level 5.3 mmol/L 5.0 mmol/L Blood Gas Puncture Site LT RADIAL Blood Gas Patient Temperature 98.6 Blood Gas HCO3 15 mmol/L Blood Gas Base Excess -9.4 mmol/L Blood Gas Oxygen Saturation 90 % Arterial Blood pH 7.34 Arterial Blood Partial 29 mmHG Pressure CO2 Arterial Blood Partial 81 mmHG Pressure O2 Arterial Blood Oxygen Content 13.6 Vol % Arterial Blood 3.3 % Carboxyhemoglobin Arterial Blood Methemoglobin 1.1 % Blood Gas Hemoglobin 10.6 G/DL Oxygen Delivery Device ROOM AIR Blood Gas Inspired Oxygen 21 % Ammonia 41 MCMOL/L Physical Examination HEENT: Normocephalic; atraumatic; jaundice. CHEST: CTA, diminished CARDIAC: RRR ABDOMEN: Soft, nondistended, nontender; hepatosplenomegaly; bowel sounds are present in all four quadrants. EXTREMITIES: No clubbing, cyanosis, or edema. SKIN: Normal; no rash; jaundice. 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 (Mary Lou Calabrese) Assessment and Plan Plan ASSESSMENT: - Elevated LFTs. Pt with known hepatitis C, ? hx cirrhosis. Abdomen/Pelvis CT (05/11/16)-----> 1. 1.5 x 1.7 cm nonspecific left adrenal nodule. The left adrenal is minimally increased in size when compared to previous dated 06/02/12. It is stable when compared to previous dated 07/19/15 as such, it is likely benign. If there is strong clinical concern for malignancy MRI imaging could be performed for more definitive assessment. 2. The patient is post cholecystectomy. No intrahepatic biliary duct dilation is evident. 3. Cardiomegaly. On 03/31/16, she was noted to have T. Bili 1.6, Direct 0.6, Indirect 1.0, AST 994, ALT 427, Alk Phosph 84. Today, these were noted to be T. Bili 2.3, AST 1461, ALT 474, Alk Phosph 88. Ammonia 41. Also with coagulopathy, INR 2.2 despite being off of coumadin for a week. MELD 28. Pt denies ever actually being told that she has liver cirrhosis. She was dx with HCV 4-5 years ago and states she is tx naive. She denies acetaminophen use. No new meds. No herbal supplements. No GB. She does have CMP and could have some congestive component. Decompensation of chronic liver dz vs. congestive hepatopathy vs. shocked liver vs. other. Has had borderline low b/p - Hepatic encephalopathy. Mild. Ammonia 41. Alert with this. - Hepatitis C, diagnosed 4-5 years ago, tx naive. - COPD Exacerbation with recent bilateral PE. VQ scan pending. She ran out of her coumadin a week ago. Per CCM - DEL with multiple electrolyte abnormalities. - Elevated Lactic Acid. - CHF/CMP, CAD, DM per primary PLAN: - Heart healthy, diabetic diet - Acetaminophen level - PILY, ASMA, AMA - Ceruloplasmin, Alpha 1 Antitrypsin - Ferritin, Iron Saturation - AFP level - Hepatitis genotype, viral load - Lactulose - PPI - Ceftriaxone - Monitor labs - Further recommendations to follow after patient seen and examined by Dr. Melendez (Mary Lou Calabrese) Physician Comments seen, examined agree with above she is noted to have ast elevated more than alt, in view of recent NSTMI - concern for possible cardiac origin she also reports using 15 tablets of aspirin times two , approximately 1 week ago.States she had tooth pain and was told that this treatment will kill the nerve and make the pain disappear.She had two teeth that were bothering her .She applied them directly on the root, did not swallow (Beulah Melendez MD) Mary Lou Calabrese May 11, 2016 15:45 Beulah Melendez MD May 11, 2016 20:47
[2016-05-11] MEDS ORDERED: RESP: ALBUTEROL 2.5 MG/IPRATROPIUM 0.5 MG NEB (PRN) NEB (16:00)
--- NOTE | 2016-05-11 16:08 | RADRPT ---
EXAM DATE/TIME: 05/11/2016 15:39 [facility] COMPARISON: CHEST SINGLE AP, May 11, 2016, 9:13. INDICATIONS : Shortness of breath for two days. Previous pulmonary embolus in march 2016. DOSE: 8.6 mCi Tc99m MAA IV 1.0 mCi Tc99m DTPA aerosol MEDICAL HISTORY : Cardiovascular disease. Hypertension. Chronic obstructive pulmonary disease. SURGICAL HISTORY : Coronary artery stent. Tubal ligation. Pacemaker. ENCOUNTER: Initial ACUITY: 2 days PAIN SCALE: 0/10 LOCATION: Bilateral chest TECHNIQUE: Following five minutes of tidal breathing of DTPA aerosol, planar images of the lungs were performed in eight projections. The patient was then injected with MAA, and eight-view perfusion scan was perf ormed. FINDINGS: There is some patchy distribution of aerosol with central clumping characteristic of some degree of C OPD. No focal ventilatory defects are seen. The perfusion lung scan demonstrates a homogenous pattern of uptake in both lungs. No segmental or s ubsegmental defects are seen. CONCLUSION: 1. Low probability scan for pulmonary embolus. 2. Patchy distribution of aerosol with central clumping characteristic of some degree of COPD. Mason Ortega MD on May 11, 2016 at 16:03 Board Certified Radiologist. This report was verified electronically.
[2016-05-11] MEDS: RESP: ALBUTEROL 2.5 MG/IPRATROPIUM 0.5 MG NEB (SCH) NEB ×2 (16:10→20:21)
[2016-05-11] MEDS ORDERED: SODIUM CHLORIDE 0.9% FLUSH 5 ML FLUSH IV FLUSH PRN (16:15)
[2016-05-11] MEDS ORDERED: CHLORHEXIDINE GLUCONATE 2 % 1 PACK (2 CLOTHS) TOP PRN (16:15)
[2016-05-11] MEDS ORDERED: MISCELLANEOUS NURSING INFORMATION XX SCH (16:15)
[2016-05-11 16:41] LABS: ANION GAP 16 MEQ/L (5-15); BICARBONATE 16.4 MEQ/L (21.0-32.0); BLOOD UREA NITROGEN 33 MG/DL (7-18); CHLORIDE 97 MEQ/L (98-107); GLOMERULAR FILTRATION RATE 21 ML/MIN (>89); SODIUM (NA) 129 MEQ/L (136-145)
[2016-05-11 16:47] LABS: ALKALINE PHOSPHATASE 80 U/L (45-117); ALT (GPT) 654 U/L (10-53); AST (GOT) 1823 U/L (15-37); LACTIC ACID GHOST NOT REPORTABLE; TOTAL BILIRUBIN ADULT 1.7 MG/DL (0.2-1.0)
[2016-05-11] MEDS: cefTRIAXone INJ 1,000 MG in SODIUM CHLORIDE 0.9% INJ 100 ML IV SCH (16:55)
[2016-05-11] MEDS: PANTOPRAZOLE SODIUM 40 MG VIAL IV SCH (16:56)
[2016-05-11 19:16] LABS: BACTERIA, URINE RARE /hpf; BLOOD, URINE NEG (NEG); GLUCOSE,URINE NEG (NEG); HYALINE CAST, URINE 4 /lpf (RARE); KETONE, URINE NEG (NEG); MUCUS URINE FEW /lpf (OCC); NITRITE,URINE NEG (NEG); SQUAMOUS EPITHELIAL CELL URINE 4 /hpf (0-5); URINE COLOR YELLOW (YELLW/STRAW)
[2016-05-11 19:17] LABS: COMMENT (UR) CATH-CULT NOT IND; CULTURE IF INDICATED CATH CULTURE NOT IND
[2016-05-11 19:24] LABS: AMPHETAMINE, URINE NEG (NEG); BARBITURATES, URINE NEG (NEG); COCAINE, URINE POS (NEG)
[2016-05-11] MEDS ORDERED: MORPHINE SULFATE 4 MG/ML INJ IV PRN ×2 (20:15→21:39)
[2016-05-11] MEDS: ENOXAPARIN SODIUM 60 MG/0.6 ML SYRINGE SQ SCH (21:16)
[2016-05-11] MEDS: SODIUM CHLORIDE 0.9% FLUSH 5 ML FLUSH IV FLUSH SCH (21:16)
[2016-05-11 23:00] LABS: ACETAMINOPHEN LESS THAN 2.0 MCG/ML (10.0-30.0); TRANSFERRIN IRON PROFILE 311 MG/DL (200-360)
[2016-05-11 23:03] LABS: FERRITIN 81 NG/ML (8-252)
[2016-05-11 23:07] LABS: CREATINE KINASE 77 U/L (26-192)
--- NOTE | 2016-05-11 23:57 | RADRPT ---
EXAM DATE/TIME: 05/11/2016 23:21 [facility] COMPARISON: No previous studies available for comparison. INDICATIONS : History of deep vein thrombosis. MEDICAL HISTORY : Myocardial infarction. Hypercholesterolemia. CAD. Hyperlipidemia. Chest pain. COPD. DVT. Chest pain. Dyspnea. Acute renal failure. Diabetes. Anticoagulant therapy, Warfarin. SURGICAL HISTORY : Coronary artery stent.CABG Cholecystectomy.AICD. Cardiac cath. Tubal ligation. section. Appe ndectomy. ENCOUNTER: Initial ACUITY: 1 day PAIN SCORE: 0/10 LOCATION: Bilateral leg. TECHNIQUE: Venous ultrasound of the left and right leg was performed from the inguinal ligament to the proximal calf. Real-time, color Doppler and spectral tracing, compression and augmentation techniques were us ed. FINDINGS: RIGHT LEG: There is normal compressibility of the deep venous system from the inguinal region to the proximal ca lf. No echogenic clot is seen in the lumen of the common femoral, femoral, popliteal, and posterior tibial veins. There is a normal response of the venous system to proximal and distal augmentation an d respiration. LEFT LEG: There is normal compressibility of the deep venous system from the inguinal region to the proximal ca lf. No echogenic clot is seen in the lumen of the common femoral, femoral, popliteal, and posterior tibial veins. There is a normal response of the venous system to proximal and distal augmentation an d respiration. CONCLUSION: Normal examination. Darin Tobias MD on May 11, 2016 at 23:55 Board Certified Radiologist. This report was verified electronically.
[2016-05-12] VITALS (11 sets, daily range): BP systolic 93–129; BP diastolic 54–78; PULSE 80–94; RESP 16–23; TEMP 96.1–98.1; O2SAT 93–99
[2016-05-12] MEDS: RESP: ALBUTEROL 2.5 MG/IPRATROPIUM 0.5 MG NEB (SCH) NEB ×4 (03:53→22:20)
[2016-05-12 03:59] LABS: INTERNATIONAL NORMALIZED RATIO 1.9 RATIO; PROTHROMBIN TIME - PATIENT 21.8 SEC (9.8-11.6)
[2016-05-12] MEDS: CHLORHEXIDINE GLUCONATE 2 % 1 PACK (2 CLOTHS) TOP SCH (04:00)
[2016-05-12 04:08] LABS: AUTOMATED NEUTROPHIL # 4.9 TH/MM3 (1.8-7.7); BASOPHIL # 0.1 TH/MM3 (0-0.2); BASOPHIL % 1.1 % (0.0-2.0); EOSINOPHIL # 0.1 TH/MM3 (0-0.4); EOSINOPHIL % 1.1 % (0.0-4.0); HEMATOCRIT 33.1 % (35.0-46.0); LYMPH % 22.3 % (9.0-44.0); LYMPHOCYTE # 1.6 TH/MM3 (1.0-4.8); MEAN CORPUSCULAR HEMOGLOBIN 24.6 PG (27.0-34.0); MEAN CORPUSCULAR HGB CONC 31.1 % (32.0-36.0); MONO % 5.5 % (0.0-8.0); PLATELET COUNT 192 TH/MM3 (150-450); RED BLOOD COUNT 4.18 MIL/MM3 (4.00-5.30)
[2016-05-12 04:14] LABS: HEMO FLAGS AUTO DIFF
[2016-05-12 04:19] LABS: ALKALINE PHOSPHATASE 79 U/L (45-117); ALT (GPT) 590 U/L (10-53); ANION GAP 8 MEQ/L (5-15); AST (GOT) 1098 U/L (15-37); BICARBONATE 24.8 MEQ/L (21.0-32.0); BLOOD UREA NITROGEN 30 MG/DL (7-18); CHLORIDE 101 MEQ/L (98-107); GLOMERULAR FILTRATION RATE 23 ML/MIN (>89); MAGNESIUM 1.6 MG/DL (1.5-2.5); SODIUM (NA) 134 MEQ/L (136-145); TOTAL BILIRUBIN ADULT 0.9 MG/DL (0.2-1.0)
[2016-05-12 05:38] LABS: SCAN/DIFF AUTO DIFF CONFIRMED
[2016-05-12] MEDS: MORPHINE SULFATE 4 MG/ML INJ IV PRN ×5 (05:49→22:55)
--- NOTE | 2016-05-12 08:11 | MB ---
cc: GISELA MINOR MD, RUBY ANNE E. M.D. DATE OF CONSULTATION 05/11/2016 DATE OF [address] Minor CHIEF COMPLAINT Dr. Minor requested consultation for Mrs. Smart regarding coagulopathy and pulmonary embolism. HISTORY OF PRESENT ILLNESS Mrs. Elizabeth is a 45-year-old woman with multiple medical problems. She has a history of hypertension, diabetes, coronary artery disease status post stents, hyperlipidemia, COPD, untreated hepatitis C, hypothyroidism. She has a history of bilateral lower extremity deep vein thromboses diagnosed in 2012. She was treated with anticoagulant therapy. She reports that the precipitating event was lounging around at her father's placed in the [facility]. She was recently hospitalized March of 2016 with presenting complaints of chest pain and shortness of breath. CT angiogram confirmed the presence of pulmonary emboli. She had pulmonary emboli within the lower lobe branches of pulmonary arteries bilaterally. There is bibasilar alveolar consolidation consistent with pneumonia and atelectasis, possible infarct. She was treated with anticoagulant therapy. She was discharged on low-molecular weight heparin bridged to a therapeutic INR. Unfortunately Mrs. Smart could not complete her application for patient assistance. She complains of not being able to get in with a physician and her Coumadin prescription ran out. She presented to the emergency room. She complained of chest pain, being off anticoagulant therapy. She was evaluated further and was found to have elevated liver function AST of 1400 increasing to 1800, ALT was 475 increased to 654. Urine tox is positive for benzodiazepine, cocaine and opiates. In addition, she was noted to have acute renal failure with a creatinine of 2.46. Her creatinine on discharge was normal at 0.88. With the above presentation, she was admitted to the ICU. Further workup shows an elevated lactic acid. Beta natriuretic peptide was 1500. She was having chest pains and shortness of breath. Evaluation and CT angiogram could not be done due to the elevated creatinine. A VQ scan was performed that shows low probability for pulmonary emboli. She has some degree of COPD. She had other symptoms including nausea, vomiting, abdominal pain. The only significant finding was a 1.5 x 1.7, nonspecific left adrenal nodule. She has no history of underlying malignancy. She is status post cholecystectomy. There is no intrahepatic biliary ductal dilatation evident. She has known cardiomegaly. On further questioning, Mrs. Smart complains of tooth pain. She had taken 15 tablets of 500 mg Tylenol and was stuffing it in the tooth. She heard that this would get rid of her pain and kill the gum nerve. She reports not swallowing the Tylenol, but was spitting it out. She denies any bleeding except from bruising related to the Lovenox injection. The rest of the review of systems is negative. PAST MEDICAL HISTORY 1. Arthritis 2. Anxiety 3. Hypertension 4. Diabetes 5. Coronary artery disease 6. Hyperlipidemia 7. CHF 8. COPD 9. Untreated hepatitis C 10. Questionable cirrhosis 11. Prior deep vein thromboses, recent pulmonary embolism 12. Hypothyroidism PAST SURGICAL HISTORY 1. AICD placement 2. Stents placement 3. 4. Tubal ligation 5. Cholecystectomy ALLERGIES NO KNOWN DRUG ALLERGIES. CURRENT MEDICATIONS 1. Lactulose 2. Morphine p.r.n. 3. Protonix 4. Chlorhexidine 5. Ceftriaxone 6. Albuterol 7. Ipratropium FAMILY HISTORY Mother had leukemia and C. diff colitis, paternal grandmother had OR, maternal grandmother had heart disease. SOCIAL HISTORY She smokes a half a pack a day. She denies any alcohol use. She has a history IV drug use. Her urine tox is positive. LABORATORY DATA Labs with coagulopathy, PT/PTT are prolonged INR 2.2. CBC significant for hemoglobin of 11.2, MCV 80, platelet count was normal. Urine tox is positive as above. Chemistry BUN 33, creatinine 2.46, sodium 129. Urinalysis positive for protein, rare bacteria. PHYSICAL EXAMINATION VITAL SIGNS: Temperature 97.4, heart rate 80, respiratory rate 22, blood pressure 103/71, saturation 98%. GENERAL: Mrs. Elizabeth is a well-developed woman who looks older than stated age. HEAD, EYES, EARS, NOSE, AND THROAT: She has generalized pallor. Poor dentition and her pupils are round and reactive to light and accommodation. Oropharynx is dry. NECK: Supple. LUNGS: Diminished breath sounds throughout. CARDIOVASCULAR: Exam reveals a normal rate, rhythm. ABDOMEN: Benign. EXTREMITIES: Lower extremity with no edema, good pulses. NEUROLOGIC: Exam is nonfocal. LABORATORY DATA Significant for BUN of 32, creatinine 2.46 and a hemoglobin 11.2. ASSESSMENT Mrs. Smart is a 45-year-old woman with multiple medical problems described above. She is readmitted after failing to be able to see her primary physician for patient assistance. She ran out of Coumadin. She was on anticoagulant therapy without any physician monitoring since being discharged from the hospital. She reports compliance with the anticoagulation except for running out of Coumadin prescription. We discussed the importance of physician follow up to adjust her anticoagulant therapy. We discussed the liver pathology. She reports an underlying history of cirrhosis. I have no liver biopsy to confirm this. Gastroenterology has been consulted to assist in this. Her AST and ALT are significantly prolonged. I suspect this is toxicity from the Tylenol that she gives per history. It is not clear how much of this is true and relevant. Her history may be unreliable as urine tox is positive for other substances. Hematology/Oncology is consulted for the coagulopathy. At present, the coagulopathy is contributed to by the liver pathology and CHF. Expect that the anticoagulant therapy of Coumadin and its effect will be difficult to measure and in light of the above well. At present, I recommend no Coumadin. We discussed using low molecular weight heparin which she was agreeable to. The dose will be adjusted according to pharmacy. I estimate her dose to be about 60 mg once daily. We discussed using ICE. We discussed stopping unfractionated heparin to allow her anticoagulation to continue. I anticipate being able to resume her Coumadin once her liver functions improves. We discussed the ultimate outcome should her liver function not improve. For this reason, she is encouraged to avoid substances that would impair her liver any further. I defer to gastroenterology for decision for treatment of hepatitis C. Patient assistance and been consulted. It would be of benefit for the patient to have an appointment for followup once discharged. Her readmission was precipitated by running out of medication and other events. We will monitor closely for any bleeding during her hospitalization. We will monitor her liver function. MD MEKHI Gomez/CARLOS MANUEL /8:24 PM /7:41 AM
--- NOTE | 2016-05-12 08:45 | PD.TRANSFR ---
Transfer Summary Admission Date May 11, 2016 at 10:52 Admitting Diagnosis ACUTE KIDNEY INJURY, DYSPNEA Diagnoses: (1) Liver failure Diagnosis: Principal (2) Acute kidney failure Diagnosis: Principal (3) Metabolic acidemia Diagnosis: Principal (4) Recent pulmonary embolisn Diagnosis: Principal (5) Lactic acidosis Diagnosis: Principal (6) COPD (chronic obstructive pulmonary disease) Diagnosis: Secondary (7) DM (diabetes mellitus) Diagnosis: Secondary (8) CAD (coronary artery disease) Diagnosis: Secondary (9) CHF (congestive heart failure) Diagnosis: Secondary (10) Presence of cardiac defibrillator Diagnosis: Secondary (11) HTN (hypertension) Diagnosis: Secondary (12) HLD (hyperlipidemia) Diagnosis: Secondary Transfer Summary/Subjective This 45-year-old female with history of bilateral lower lobe pulmonary embolism diagnosed 03/31/16, hepatitis C with cirrhosis, COPD, coronary artery disease with multiple stents, ischemic cardiomyopathy, type 2 diabetes who presented to emergency department with shortness of breath for the last few days. She was admitted to the hospital in March of this year with troponin level of 30 and also found to have bilateral lower lobe pulmonary emboli. She was released from the hospital on Lovenox and Coumadin. Echo on 03/31/16 showed 15-20% with moderate mitral regurgitation. She ran out of her Coumadin about a week ago, had no refill so started taking aspirin 81 mg 3 tabs daily. She has had increasing shortness of breath over the last 3 or 4 days with severe dyspnea on minimal exertion. She had a cardiac catheterization in November 2015 which showed multivessel coronary artery disease. Also states vomited 4 times yesterday. ER work up showed BUN 31 creatinine 2.7 (0.88 creat last admission) bilirubin 2.3 (1.6 last admission) AST 1461(994 in Feb) with AST 474 (427 in Feb ) and lactic acid of 5.3. BNP was 1550. Her INR was 2.2 despite being off Coumadin for 1 week, and heparin was not started for this reason. I evaluated the patient in the ICU. She appears dehydrated and chronically ill. Exam reveals mild bilateral wheezing. SUBJ 05/12/16: Patient appears to be clinically improving with improved shortness of breath. Creatinine has improved from 2.46-2.2 with gentle hydration. INR down to 1.[address] Dr. Serrato has started Lovenox 60 mg subcutaneous daily for anticoagulation. Liver enzymes improving Objective Vital Signs Date Time Temp Pulse Resp B/P Pulse Ox O2 Delivery O2 Flow Rate FiO2 05/12/16 08:00 86 05/12/16 08:00 97.6 22 120/78 97 05/11/16 20:21 21 05/11/16 13:24 Room Air Intake and Output 05/11/16 05/11/16 05/12/16 08:00 16:00 00:00 Intake Total 851 ml Balance 851 ml Result Diagram: 05/12/16 0329 05/12/16 0329 Other Results Laboratory Tests Test 05/11/16 11:58 Blood Gas Puncture Site LT RADIAL Blood Gas Patient Temperature 98.6 Blood Gas HCO3 15 mmol/L (22-26) Blood Gas Base Excess -9.4 mmol/L (-2-2) Blood Gas Oxygen Saturation 90 % (90-100) Arterial Blood pH 7.34 (7.380-7.420) Arterial Blood Partial 29 mmHG (38-42) Pressure CO2 Arterial Blood Partial 81 mmHG Pressure O2 (61-120) Arterial Blood Oxygen Content 13.6 Vol % (12.0-20.0) Arterial Blood 3.3 % (0-4) Carboxyhemoglobin Arterial Blood Methemoglobin 1.1 % (0-2) Blood Gas Hemoglobin 10.6 G/DL (12.0-16.0) Oxygen Delivery Device ROOM AIR Blood Gas Inspired Oxygen 21 % Imaging CXR negative CT abdomen pelvis shows nonspecific L adrenal nodule Objective Remarks GENERAL: Well-developed female, no distress SKIN: Warm and dry. HEAD: Atraumatic. Normocephalic. EYES: Pupils equal and round. Positive scleral icterus. No injection or drainage. ENT: No nasal bleeding or discharge. Mucous membranes dry NECK: Trachea midline. No JVD. CARDIOVASCULAR: Regular rate and rhythm. No murmur appreciated. RESPIRATORY: No accessory muscle use. Breath sounds equal bilaterally. Mild bilateral wheezing GASTROINTESTINAL: Abdomen soft, non-tender, nondistended. Hepatic and splenic margins not palpable. MUSCULOSKELETAL: No obvious deformities. No clubbing. No cyanosis. No edema. NEUROLOGICAL: Awake and alert. No obvious cranial nerve deficits. Motor grossly within normal limits. Normal speech. A/P Assessment and Plan NEURO: -No active drug abuse or alcohol use -Minimize sedation -Morphine when necessary for pain RESP: COPD with mild exacerbation Bilateral PE March 2016 -Nasal cannula oxygen to keep Sat >90% -DuoNeb q6 scheduled and PRN -VQ scan 04/13/16 Low probability -Consulted hematology for assistance with anticoagulation in a patient with liver failure-Dr. Serrato has started patient on Lovenox 40 mg subcutaneous daily -INR 1.9 today CV: Ischemic cardiomyopathy EF 15-20% Mild troponin elevation Compensated systolic heart failure Coronary artery disease status post multiple stents Status post AICD -Normal saline IV fluids at 84 ml per hour -2d echo 03/31/16 EF 15-20% -Watch closely for systolic heart failure exacerbation -Consult cardiology Dr. Colvin who has seen her before -Continue aspirin and Lovenox -Start Coreg 3.125 mg BID GI: Liver cirrhosis with hepatic failure -GI consulted. Patient is not a candidate for liver transplant due to severe ischemic cardiomyopathy -IV Protonix for GI prophylaxis : Acute kidney failure Severe dehydration -Monitor renal function closely. Creatinines slowly improving -Careful hydration 84 ml per hour ID: Lactic acidosis -Place on empiric Ceftriaxone until cultures are back -Lactic acidosis may be secondary to lack of clearance due to liver failure, repeat lactic acid now HEME: Coagulopathy -Monitor CBC, CMP, INR ENDO: Hypokalemia Hyponatremia -Continue normal saline infusion -Potassium replacement carefully PROPH: -Bilateral lower extremity SCDs. IV Protonix 40 mg IV daily -Lovenox 60 mg daily started by Dr. Serrato LINES: -Utilize peripheral IVs, central line if needed Level 3 Transfer out of ICU. [facility] to assume care in am 05/13 Tiffany Kidd MD May 12, 2016 08:45
[2016-05-12] MEDS: LACTULOSE SYRUP 20 GM/30 ML CUP PO SCH (09:38)
[2016-05-12] MEDS: PANTOPRAZOLE SODIUM 40 MG VIAL IV SCH (09:38)
[2016-05-12] MEDS: SODIUM CHLORIDE 0.9% FLUSH 5 ML FLUSH IV FLUSH SCH ×2 (09:39→21:00)
[2016-05-12] MEDS: ASPIRIN EC 81 MG TABEC PO SCH (11:16)
[2016-05-12] MEDS: CARVEDILOL 3.125 MG TAB PO SCH ×2 (11:16→22:27)
--- NOTE | 2016-05-12 12:25 | MB ---
cc: FERDINAND MACDONALD DATE OF CONSULTATION 05/12/2016 REASON FOR CONSULTATION Abnormal troponin levels, history of coronary artery disease. HISTORY OF PRESENT ILLNESS The patient is a 45-year-old white female with a history of multiple medical problems including coronary artery disease, severe ischemic cardiomyopathy, diabetes, COPD, recently diagnosed pulmonary emboli who presented to the hospital mainly with complaints of increased shortness of breath, nonproductive cough, wheezing, nausea and vomiting. Renal and hepatic function tests have been found to be abnormal. Since coming into the hospital, her dyspnea has considerably improved. She denies any recent chest pain, syncope, near-syncope, lightheadedness, palpitations, pedal edema, paroxysmal nocturnal dyspnea, orthopnea, fevers, hemoptysis. The patient reports noncompliance with most of her medications. She does try to obtain some of her medications from friends who are taking the same ones. PAST MEDICAL HISTORY 1. Coronary artery disease status post acute anterior myocardial infarction and stenting of the proximal LAD with a 3.0-mm Cypher stent in 2003. Her last heart catheterization was by Dr. Rebecca Heard 2012 showing 50% ostial LAD, patent proximal LAD stent, 70-80% mid LAD stenosis, distal 80% LAD lesion, 40% proximal left circumflex, 60-70% mid left circumflex disease, 60% proximal right coronary artery stenosis, 60-70% posterior descending artery stenosis. At that time, cardiovascular surgery consult was obtained for possible bypass surgery, but she was recommended medical therapy mainly due to very poor target vessels. She did sustain a possible non-ST elevation myocardial infarction last month treated medically. At that time, her peak CK was 1128 with 9.6% MB fraction with a troponin greater than 40.0. 2. Severe ischemic cardiomyopathy with ejection fraction of 15-20% demonstrated by echo 03/31/2016. She is status post [employer] single chamber AICD implant about two years ago in [place], [place] 3. Diabetes 4. Hypertension 5. Hepatitis C 6. Hyperlipidemia 7. Hypothyroidism 8. COPD 9. Recently diagnosed bilateral pulmonary emboli. REPORTED DISCHARGE MEDICATIONS From her recent hospitalization include: 1. Aspirin 81 mg daily 2. Lisinopril 5 mg daily 3. Metoprolol tartrate 12.5 mg b.i.d. 4. Furosemide 20 mg daily 5. Atorvastatin 80 mg q.h.s. 6. Warfarin 4 mg daily 7. Spironolactone 25 mg daily ALLERGIES NO KNOWN DRUG ALLERGIES. FAMILY HISTORY Noncontributory. There is an extensive history of coronary disease. SOCIAL HISTORY The patient smokes about a half pack of cigarettes per day. She denies alcohol abuse. Years ago, she did abuse crystal meth and IV Dilaudid. REVIEW OF SYSTEMS As in the history of present illness, otherwise negative or noncontributory. She also denies headache, visual changes, abdominal pain, melena, dyspepsia, bright red blood per rectum. PHYSICAL EXAM On physical examination, her blood pressure 120/78 with a pulse of 92, respirations 22. GENERAL: She is a well-developed, well-nourished white female in no acute distress. NECK: Jugular venous pressure is normal. Carotid pulses are 2+ bilaterally and without bruits. CHEST: Examination of the chest reveals clear lung jay. CARDIAC: She has a regular rhythm and rate without S3, S4 or murmur. ABDOMEN: On abdominal examination, she has a soft, nontender abdomen. Bowel sounds are present. There is no definite hepatosplenomegaly. EXTREMITIES: Examination of the extremities reveals no clubbing, cyanosis or edema. LABORATORY DATA Includes WBC 7.0, hemoglobin 10.3, platelets 192. Potassium 4.0, BUN 30, creatinine 2.25, AST 1098, ALT 590, troponin 0.57, CK 77, INR 1.9. Toxicology screen positive for opiates, benzodiazepines and cocaine. Chest x-ray shows no acute disease. EKG shows sinus rhythm, possible anterolateral infarct age undetermined, nonspecific inferior T-wave abnormalities. IMPRESSION Overall stable cardiac status in this 45-year-old white female with a history of multiple medical problems including coronary artery disease, severe ischemic cardiomyopathy with ejection fraction of 15-20% status post AICD implant, diabetes, hepatitis C, recently diagnosed pulmonary emboli, now admitted with dyspnea, acute renal and hepatic insufficiency. She has had no recent angina symptoms. There is no definite evidence for congestive heart failure by exam or chest x-ray. The patient reports no recent AICD shocks. Her troponin levels are only slightly abnormal, this in the setting of renal insufficiency. CK levels are negative for myocardial infarction. RECOMMENDATIONS 1. Continued medical therapy of her coronary artery disease; agree with resuming beta tamanna therapy and holding off on SHAKEEL inhibitor medication with her renal insufficiency. 2. If her renal indices do return to baseline, consider resuming her diuretics (spironolactone and furosemide). 3. We will have the [employer] customer counter representative check her AICD as she states she has not had it checked in two years. 4. Will follow up as needed. MD HAVEN Escamilla/CARLOS MANUEL /11:57 AM /12:12 PM MTDD
--- NOTE | 2016-05-12 12:27 | PD.ONC.PN ---
Subjective Subjective Remarks Afebrile overnight. Patient resting comfortably without complaint. She is tolerating the Lovenox injections. She has not had any bleeding. No complaints. Objective Data Date Time Temp Pulse Resp B/P Pulse Ox O2 Delivery O2 Flow Rate FiO2 05/12/16 08:00 86 05/12/16 08:00 97.6 92 22 120/78 97 05/12/16 06:00 88 05/12/16 04:49 18 05/12/16 04:00 86 05/12/16 04:00 98.1 86 23 129/65 98 05/12/16 02:00 85 05/12/16 00:00 81 05/12/16 00:00 97.9 81 19 93/54 93 05/11/16 22:00 82 05/11/16 21:36 15 05/11/16 20:21 99 21 05/11/16 20:00 81 05/11/16 20:00 97.4 81 24 113/77 98 05/11/16 18:00 76 05/11/16 18:00 97.4 80 22 103/71 98 05/11/16 17:00 97.4 76 20 110/55 98 05/11/16 16:00 65 05/11/16 13:24 79 18 106/70 96 Room Air 05/11/16 13:22 18 Result Diagram: 05/12/16 0329 05/12/16 0329 Laboratory Results Laboratory Tests Test 05/11/16 05/11/16 05/11/16 05/12/16 14:43 18:20 22:31 03:29 Activated Partial 34.1 SEC Thromboplast Time Sodium Level 129 MEQ/L 134 MEQ/L Potassium Level 5.0 MEQ/L 4.0 MEQ/L Chloride Level 97 MEQ/L 101 MEQ/L Carbon Dioxide Level 16.4 MEQ/L 24.8 MEQ/L Anion Gap 16 MEQ/L 8 MEQ/L Blood Urea Nitrogen 33 MG/DL 30 MG/DL Creatinine 2.46 MG/DL 2.25 MG/DL Estimat Glomerular Filtration 21 ML/MIN 23 ML/MIN Rate Random Glucose 120 MG/DL 155 MG/DL Lactic Acid Level 5.0 mmol/L Calcium Level 8.5 MG/DL 8.0 MG/DL Total Bilirubin 1.7 MG/DL 0.9 MG/DL Aspartate Amino Transf 1823 U/L 1098 U/L (AST/SGOT) Alanine Aminotransferase 654 U/L 590 U/L (ALT/SGPT) Alkaline Phosphatase 80 U/L 79 U/L Ammonia 41 MCMOL/L Total Protein 7.6 GM/DL 6.8 GM/DL Albumin 3.3 GM/DL 2.8 GM/DL Acetaminophen Level LESS THAN 2.0 LESS THAN 2.0 MCG/ML MCG/ML Urine Color YELLOW Urine Turbidity HAZY Urine pH 5.0 Urine Specific [place] 1.013 Urine Protein 30 mg/dL Urine Glucose (UA) NEG mg/dL Urine Ketones NEG mg/dL Urine Occult Blood NEG Urine Nitrite NEG Urine Bilirubin NEG Urine Urobilinogen 2.0 MG/DL Urine Leukocyte Esterase NEG Urine RBC 1 /hpf Urine WBC 2 /hpf Urine Squamous Epithelial 4 /hpf Cells Urine Bacteria RARE /hpf Urine Hyaline Casts 4 /lpf Urine Mucus FEW /lpf Microscopic Urinalysis Comment CATH-CULT NOT IND Urine Opiates Screen POS Urine Barbiturates Screen NEG Urine Amphetamines Screen NEG Urine Benzodiazepines Screen POS Urine Cocaine Screen POS Urine Cannabinoids Screen NEG Iron Level 15 MCG/DL Total Iron Binding Capacity 435 MCG/DL Percent Iron Saturation 3.4 % Ferritin 81 NG/ML Total Creatine Kinase 77 U/L Troponin I 0.57 NG/ML Salicylates Level 3.4 MG/DL White Blood Count 7.0 TH/MM3 Red Blood Count 4.18 MIL/MM3 Hemoglobin 10.3 GM/DL Hematocrit 33.1 % Mean Corpuscular Volume 79.0 FL Mean Corpuscular Hemoglobin 24.6 PG Mean Corpuscular Hemoglobin 31.1 % Concent Red Cell Distribution Width 18.0 % Platelet Count 192 TH/MM3 Mean Platelet Volume 7.4 FL Neutrophils (%) (Auto) 70.0 % Lymphocytes (%) (Auto) 22.3 % Monocytes (%) (Auto) 5.5 % Eosinophils (%) (Auto) 1.1 % Basophils (%) (Auto) 1.1 % Neutrophils # (Auto) 4.9 TH/MM3 Lymphocytes # (Auto) 1.6 TH/MM3 Monocytes # (Auto) 0.4 TH/MM3 Eosinophils # (Auto) 0.1 TH/MM3 Basophils # (Auto) 0.1 TH/MM3 CBC Comment AUTO DIFF Differential Comment AUTO DIFF CONFIRMED Prothrombin Time 21.8 SEC Prothromb Time International 1.9 RATIO Ratio Magnesium Level 1.6 MG/DL Tumor Marker Alpha Fetoprotein 1.2 NG/ML Test 05/12/16 09:42 Lactic Acid Level 3.5 mmol/L Culture Results Microbiology Date/Time Procedure Status Source Growth 05/11/16 18:40 Aerobic Blood Culture - Preliminary Resulted Blood Peripheral NO GROWTH IN 1 DAY 05/11/16 18:40 Anaerobic Blood Culture - Preliminary Resulted Blood Peripheral NO GROWTH IN 1 DAY 05/11/16 18:45 Aerobic Blood Culture - Preliminary Resulted Blood Peripheral NO GROWTH IN 1 DAY 05/11/16 18:45 Anaerobic Blood Culture - Preliminary Resulted Blood Peripheral NO GROWTH IN 1 DAY Imaging Studies Last Impressions Chest X-Ray 05/11/16 0843 Signed Impressions: Service Date/Time: Wednesday, May 11, 2016 09:13 - CONCLUSION: Compensated cardiomegaly. No acute cardiopulmonary process. Mason Ortega MD Lung Scan-V Nuclear Medicine 05/11/16 0000 Signed Impressions: Service Date/Time: Wednesday, May 11, 2016 15:39 - CONCLUSION: 1. Low probability scan for pulmonary embolus. 2. Patchy distribution of aerosol with central clumping characteristic of some degree of COPD. Mason Ortega MD Lower Extremity Ultrasound 05/11/16 0000 Signed Impressions: Service Date/Time: Wednesday, May 11, 2016 23:21 - CONCLUSION: Normal examination. Darin Tobias MD Abdomen/Pelvis CT 05/11/16 0000 Signed Impressions: Service Date/Time: Wednesday, May 11, 2016 10:58 - CONCLUSION: 1. 1.5 x 1.7 cm nonspecific left adrenal nodule. The left adrenal is minimally increased in size when compared to previous dated 06/02/12. It is stable when compared to previous dated 07/19/15 as such, it is likely benign. If there is strong clinical concern for malignancy MRI imaging could be performed for more definitive assessment. 2. The patient is post cholecystectomy. No intrahepatic biliary duct dilation is evident. 3. Cardiomegaly. Ricky Atkinson MD Administered Medications Medications (Trade) Dose Ordered Sig/Digna Route PRN Reason Start Time Stop Time Status Last Admin Dose Admin Sodium Chloride 1,000 ml @ 84 mls/hr [id number] IV 05/11/16 10:45 05/11/16 22:40 Ceftriaxone Sodium/Sodium Chloride (Rocephin Inj/NS Inj) 100 ml @ 200 mls/hr Q24H IV 05/11/16 16:00 05/11/16 16:55 IV Flush (NS Flush) 2 ml UNSCH PRN IV FLUSH FLUSH AFTER USING IV ACCESS 05/11/16 16:15 05/12/16 05:49 IV Flush (NS Flush) 2 ml BID IV FLUSH 05/11/16 21:00 05/12/16 09:39 Pantoprazole Sodium (Protonix Inj) 40 mg DAILY IV 05/11/16 16:15 05/12/16 09:38 Lactulose (Lactulose Liq) 30 ml DAILY PO 05/12/16 09:00 05/12/16 09:38 Miscellaneous Information 1 [id number] XX 05/11/16 16:15 05/11/16 16:15 Chlorhexidine Gluconate (Chlorhexidine 2% Cloth) 3 pack Taper DAILY@04 TOP 05/12/16 04:00 05/08/17 03:59 05/12/16 04:00 Enoxaparin Sodium (Lovenox Inj) 60 mg Q24H SQ 05/11/16 22:00 05/11/16 21:16 Morphine Sulfate (Morphine Inj) 4 mg Q3H PRN IV SCALE 1-10 05/12/16 05:30 05/12/16 09:39 Aspirin (Ecotrin Ec) 81 mg DAILY PO 05/12/16 11:00 05/12/16 11:16 Carvedilol (Coreg) 3.125 mg Q12HR PO 05/12/16 10:30 05/12/16 11:16 Objective Remarks GENERAL: Middle aged female, sitting up in bed in hospital gown watching TV in [facility]. SKIN: Warm and dry. HEAD: Normocephalic. EYES: No injection or drainage. NECK: Supple, trachea midline. CARDIOVASCULAR: Regular rate and rhythm RESPIRATORY: Breath sounds equal bilaterally. No accessory muscle use. GASTROINTESTINAL: Abdomen soft, non-tender, nondistended. no hematoma or ecchymoses. EXTREMITIES: No cyanosis NEUROLOGICAL: awake and alert, normal speech. moving extremities. Assessment/Plan Problem List: (1) Recent pulmonary embolisn Status: Acute Plan: --on Lovenox 60mg SQ q 24 hours --CM to assist with getting patient on patient assistance. (2) Coagulopathy Status: Acute Plan: d/t liver failure --monitor Assessment 45y/o with coagulopathy and pulmonary embolism, admitted after being off anticoagulation therapy history of hypertension, diabetes, coronary artery disease status post stents, hyperlipidemia, COPD, untreated hepatitis C, hypothyroidism. history of bilateral lower extremity deep vein thromboses diagnosed in 2012. PE in 03/2016--d/c'd on coumadin Plan 1. continue Lovenox 2. monitor coags 3. appreciate CM assistance with helping patient get on patient assistance. Attending Statement Discussed with GI regarding LFT elevation. Continue with support. Anticoagulation with LMWH until recovery to compensated liver disease. Maddy Briggs May 12, 2016 12:27 Maritza Serrato MD May 12, 2016 20:03
[2016-05-12] MEDS: SODIUM CHLOR 0.9% 1000 ML INJ 1,000 ML IV SCH (13:23)
--- NOTE | 2016-05-12 16:28 | HHI.GIFU ---
GI Follow-up Note Consult Follow-up Subjective: Patient laying in bed comfortably, feeling better, liver enzymes improving .She is being transferred to the regular floor Objective: PHYSICAL EXAMINATION: Vitals signs stable No fever Vital Signs Date Time Temp Pulse Resp B/P Pulse Ox O2 Delivery O2 Flow Rate FiO2 05/12/16 12:51 94 05/12/16 12:00 96.1 87 18 101/68 97 HEENT: Pupils round and reactive to light; normocephalic; atraumatic; jaundice. Throat is clear. NECK: Neck is supple, no JVD, no lymphadenopathy. CHEST: Chest is clear to auscultation and percussion. CARDIAC: Regular rate and rhythm with no murmur gallop or rubs. ABDOMEN: Soft, nondistended, nontender; no hepatosplenomegaly; bowel sounds are present in all four quadrants. EXTREMITIES: No clubbing, cyanosis, or edema. SKIN: Normal; no rash; jaundice. 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 Available Data (labs, X- Rays, Procedues) : Laboratory Tests Test 05/11/16 05/11/16 05/11/16 05/11/16 08:33 11:20 11:58 14:43 White Blood Count 11.5 TH/MM3 Red Blood Count 4.44 MIL/MM3 Hemoglobin 11.2 GM/DL Hematocrit 35.8 % Mean Corpuscular Volume 80.7 FL Mean Corpuscular Hemoglobin 25.1 PG Mean Corpuscular Hemoglobin 31.1 % Concent Red Cell Distribution Width 17.2 % Platelet Count 234 TH/MM3 Mean Platelet Volume 7.6 FL Neutrophils (%) (Auto) 85.2 % Lymphocytes (%) (Auto) 9.3 % Monocytes (%) (Auto) 4.4 % Eosinophils (%) (Auto) 0.8 % Basophils (%) (Auto) 0.3 % Neutrophils # (Auto) 9.8 TH/MM3 Lymphocytes # (Auto) 1.1 TH/MM3 Monocytes # (Auto) 0.5 TH/MM3 Eosinophils # (Auto) 0.1 TH/MM3 Basophils # (Auto) 0.0 TH/MM3 CBC Comment DIFF FINAL Differential Comment Prothrombin Time 25.5 SEC Prothromb Time International 2.2 RATIO Ratio Activated Partial 33.0 SEC 34.1 SEC Thromboplast Time Sodium Level 132 MEQ/L 129 MEQ/L Potassium Level 5.1 MEQ/L 5.0 MEQ/L Chloride Level 95 MEQ/L 97 MEQ/L Carbon Dioxide Level 16.4 MEQ/L 16.4 MEQ/L Anion Gap 21 MEQ/L 16 MEQ/L Blood Urea Nitrogen 31 MG/DL 33 MG/DL Creatinine 2.70 MG/DL 2.46 MG/DL Estimat Glomerular Filtration 19 ML/MIN 21 ML/MIN Rate Random Glucose 165 MG/DL 120 MG/DL Calcium Level 8.5 MG/DL 8.5 MG/DL Total Bilirubin 2.3 MG/DL 1.7 MG/DL Aspartate Amino Transf 1461 U/L 1823 U/L (AST/SGOT) Alanine Aminotransferase 474 U/L 654 U/L (ALT/SGPT) Alkaline Phosphatase 88 U/L 80 U/L Troponin I 0.59 NG/ML B-Type Natriuretic Peptide 1550 PG/ML Total Protein 7.9 GM/DL 7.6 GM/DL Albumin 3.3 GM/DL 3.3 GM/DL Lipase 250 U/L Lactic Acid Level 5.3 mmol/L 5.0 mmol/L Blood Gas Puncture Site LT RADIAL Blood Gas Patient Temperature 98.6 Blood Gas HCO3 15 mmol/L Blood Gas Base Excess -9.4 mmol/L Blood Gas Oxygen Saturation 90 % Arterial Blood pH 7.34 Arterial Blood Partial 29 mmHG Pressure CO2 Arterial Blood Partial 81 mmHG Pressure O2 Arterial Blood Oxygen Content 13.6 Vol % Arterial Blood 3.3 % Carboxyhemoglobin Arterial Blood Methemoglobin 1.1 % Blood Gas Hemoglobin 10.6 G/DL Oxygen Delivery Device ROOM AIR Blood Gas Inspired Oxygen 21 % Ammonia 41 MCMOL/L Acetaminophen Level LESS THAN 2.0 MCG/ML Test 05/11/16 05/11/16 05/12/16 05/12/16 18:20 22:31 03:29 09:42 Urine Color YELLOW Urine Turbidity HAZY Urine pH 5.0 Urine Specific [place] 1.013 Urine Protein 30 mg/dL Urine Glucose (UA) NEG mg/dL Urine Ketones NEG mg/dL Urine Occult Blood NEG Urine Nitrite NEG Urine Bilirubin NEG Urine Urobilinogen 2.0 MG/DL Urine Leukocyte Esterase NEG Urine RBC 1 /hpf Urine WBC 2 /hpf Urine Squamous Epithelial 4 /hpf Cells Urine Bacteria RARE /hpf Urine Hyaline Casts 4 /lpf Urine Mucus FEW /lpf Microscopic Urinalysis Comment CATH-CULT NOT IND Urine Opiates Screen POS Urine Barbiturates Screen NEG Urine Amphetamines Screen NEG Urine Benzodiazepines Screen POS Urine Cocaine Screen POS Urine Cannabinoids Screen NEG Iron Level 15 MCG/DL Total Iron Binding Capacity 435 MCG/DL Percent Iron Saturation 3.4 % Ferritin 81 NG/ML Total Creatine Kinase 77 U/L Troponin I 0.57 NG/ML Salicylates Level 3.4 MG/DL Acetaminophen Level LESS THAN 2.0 MCG/ML White Blood Count 7.0 TH/MM3 Red Blood Count 4.18 MIL/MM3 Hemoglobin 10.3 GM/DL Hematocrit 33.1 % Mean Corpuscular Volume 79.0 FL Mean Corpuscular Hemoglobin 24.6 PG Mean Corpuscular Hemoglobin 31.1 % Concent Red Cell Distribution Width 18.0 % Platelet Count 192 TH/MM3 Mean Platelet Volume 7.4 FL Neutrophils (%) (Auto) 70.0 % Lymphocytes (%) (Auto) 22.3 % Monocytes (%) (Auto) 5.5 % Eosinophils (%) (Auto) 1.1 % Basophils (%) (Auto) 1.1 % Neutrophils # (Auto) 4.9 TH/MM3 Lymphocytes # (Auto) 1.6 TH/MM3 Monocytes # (Auto) 0.4 TH/MM3 Eosinophils # (Auto) 0.1 TH/MM3 Basophils # (Auto) 0.1 TH/MM3 CBC Comment AUTO DIFF Differential Comment AUTO DIFF CONFIRMED Prothrombin Time 21.8 SEC Prothromb Time International 1.9 RATIO Ratio Sodium Level 134 MEQ/L Potassium Level 4.0 MEQ/L Chloride Level 101 MEQ/L Carbon Dioxide Level 24.8 MEQ/L Anion Gap 8 MEQ/L Blood Urea Nitrogen 30 MG/DL Creatinine 2.25 MG/DL Estimat Glomerular Filtration 23 ML/MIN Rate Random Glucose 155 MG/DL Calcium Level 8.0 MG/DL Magnesium Level 1.6 MG/DL Total Bilirubin 0.9 MG/DL Aspartate Amino Transf 1098 U/L (AST/SGOT) Alanine Aminotransferase 590 U/L (ALT/SGPT) Alkaline Phosphatase 79 U/L Total Protein 6.8 GM/DL Albumin 2.8 GM/DL Tumor Marker Alpha Fetoprotein 1.2 NG/ML Hepatitis A IgM Antibody NEGATIVE Hepatitis B Surface Antigen NEGATIVE Hepatitis B Core IgM Antibody NEGATIVE Hepatitis C Antibody REACTIVE Lactic Acid Level 3.5 mmol/L ASSESSMENT/PLAN: elevated lfts -improving multifactorial medication, chf hepatitic c positive awaiting serology for confirmation liver cirrhosis by imaging and labs awaiting work up mild hepatic encephalopathy Recommendations fu labs avoid all hepatotoxics if lfts not improving over the next few days and work-up negative consider liver biopsy It was a pleasure seeing Chantal Smart. Thank you for this consult. Entered by: Beulah Chavarria MD May 12, 2016 16:28
[2016-05-12] MEDS: cefTRIAXone INJ 1,000 MG in SODIUM CHLORIDE 0.9% INJ 100 ML IV SCH (18:03)
[2016-05-12] MEDS: ENOXAPARIN SODIUM 60 MG/0.6 ML SYRINGE SQ SCH (22:27)
[2016-05-13] VITALS (7 sets, daily range): BP systolic 94–107; BP diastolic 59–73; PULSE 56–83; RESP 16–17; TEMP 95.7–98.3; O2SAT 92–100
[2016-05-13] MEDS: RESP: ALBUTEROL 2.5 MG/IPRATROPIUM 0.5 MG NEB (SCH) NEB ×4 (02:26→21:43)
[2016-05-13] MEDS: MORPHINE SULFATE 4 MG/ML INJ IV PRN ×2 (02:30→06:30)
[2016-05-13] MEDS: CHLORHEXIDINE GLUCONATE 2 % 1 PACK (2 CLOTHS) TOP SCH (04:00)
[2016-05-13 07:29] LABS: AUTOMATED NEUTROPHIL # 3.5 TH/MM3 (1.8-7.7); BASOPHIL % 0.8 % (0.0-2.0); EOSINOPHIL # 0.1 TH/MM3 (0-0.4); EOSINOPHIL % 1.6 % (0.0-4.0); HEMATOCRIT 30.4 % (35.0-46.0); HEMO FLAGS DIFF FINAL; LYMPH % 24.7 % (9.0-44.0); LYMPHOCYTE # 1.3 TH/MM3 (1.0-4.8); MEAN CELL VOLUME 78.9 FL (80.0-100.0); MEAN CORPUSCULAR HGB CONC 31.7 % (32.0-36.0); MONO % 9.3 % (0.0-8.0); NEUT % 63.6 % (16.0-70.0); PLATELET COUNT 179 TH/MM3 (150-450); RED BLOOD COUNT 3.86 MIL/MM3 (4.00-5.30); RED CELL DISTRIBUTION WIDTH 17.4 % (11.6-17.2); WHITE BLOOD COUNT 5.5 TH/MM3 (4.0-11.0)
[2016-05-13 07:37] LABS: APTT (PATIENT) 33.8 SEC (24.3-30.1); INTERNATIONAL NORMALIZED RATIO 1.4 RATIO; PROTHROMBIN TIME - PATIENT 16.1 SEC (9.8-11.6)
[2016-05-13 08:17] LABS: ALKALINE PHOSPHATASE 76 U/L (45-117); ALT (GPT) 442 U/L (10-53); ANION GAP 7 MEQ/L (5-15); AST (GOT) 513 U/L (15-37); BICARBONATE 26.3 MEQ/L (21.0-32.0); BLOOD UREA NITROGEN 14 MG/DL (7-18); CHLORIDE 102 MEQ/L (98-107); GLOMERULAR FILTRATION RATE 46 ML/MIN (>89); POTASSIUM 4.9 MEQ/L (3.5-5.1); SODIUM (NA) 135 MEQ/L (136-145); TOTAL BILIRUBIN ADULT 0.8 MG/DL (0.2-1.0)
[2016-05-13] MEDS: ASPIRIN EC 81 MG TABEC PO SCH (10:49)
[2016-05-13] MEDS: CARVEDILOL 3.125 MG TAB PO SCH ×2 (10:49→20:34)
[2016-05-13] MEDS: LACTULOSE SYRUP 20 GM/30 ML CUP PO SCH (10:49)
[2016-05-13] MEDS: SODIUM CHLORIDE 0.9% FLUSH 5 ML FLUSH IV FLUSH SCH ×2 (10:50→20:38)
[2016-05-13] MEDS: PANTOPRAZOLE SODIUM 40 MG VIAL IV SCH (10:50)
--- NOTE | 2016-05-13 11:55 | PD.ONC.PN ---
Subjective Subjective Remarks Afebrile overnight. Patient tolerating Lovenox injections. Denies bleeding. Objective Data Date Time Temp Pulse Resp B/P Pulse Ox O2 Delivery O2 Flow Rate FiO2 05/13/16 08:00 97.6 56 16 96/63 98 05/13/16 04:00 96.8 82 16 107/73 92 05/13/16 00:11 95.7 76 16 99/68 98 05/12/16 22:20 96 05/12/16 20:52 80 05/12/16 20:00 96.5 85 16 97/70 99 05/12/16 16:00 96.6 84 20 106/68 95 05/12/16 12:51 94 05/12/16 12:00 96.1 87 18 101/68 97 05/13/16 05/13/16 05/13/16 07:00 15:00 23:00 Intake Total 1285 ml Balance 1285 ml Result Diagram: 05/13/16 0605/13/16 0602 Laboratory Results Laboratory Tests Test 05/13/16 06:02 White Blood Count 5.5 TH/MM3 Red Blood Count 3.86 MIL/MM3 Hemoglobin 9.6 GM/DL Hematocrit 30.4 % Mean Corpuscular Volume 78.9 FL Mean Corpuscular Hemoglobin 25.0 PG Mean Corpuscular Hemoglobin 31.7 % Concent Red Cell Distribution Width 17.4 % Platelet Count 179 TH/MM3 Mean Platelet Volume 7.6 FL Neutrophils (%) (Auto) 63.6 % Lymphocytes (%) (Auto) 24.7 % Monocytes (%) (Auto) 9.3 % Eosinophils (%) (Auto) 1.6 % Basophils (%) (Auto) 0.8 % Neutrophils # (Auto) 3.5 TH/MM3 Lymphocytes # (Auto) 1.3 TH/MM3 Monocytes # (Auto) 0.5 TH/MM3 Eosinophils # (Auto) 0.1 TH/MM3 Basophils # (Auto) 0.0 TH/MM3 CBC Comment DIFF FINAL Differential Comment Prothrombin Time 16.1 SEC Prothromb Time International 1.4 RATIO Ratio Activated Partial 33.8 SEC Thromboplast Time Sodium Level 135 MEQ/L Potassium Level 4.9 MEQ/L Chloride Level 102 MEQ/L Carbon Dioxide Level 26.3 MEQ/L Anion Gap 7 MEQ/L Blood Urea Nitrogen 14 MG/DL Creatinine 1.26 MG/DL Estimat Glomerular Filtration 46 ML/MIN Rate Random Glucose 122 MG/DL Calcium Level 8.0 MG/DL Total Bilirubin 0.8 MG/DL Aspartate Amino Transf 513 U/L (AST/SGOT) Alanine Aminotransferase 442 U/L (ALT/SGPT) Alkaline Phosphatase 76 U/L Total Protein 6.7 GM/DL Albumin 2.8 GM/DL Culture Results Microbiology Date/Time Procedure Status Source Growth 05/11/16 18:40 Aerobic Blood Culture - Preliminary Resulted Blood Peripheral NO GROWTH IN 2 DAYS 05/11/16 18:40 Anaerobic Blood Culture - Preliminary Resulted Blood Peripheral NO GROWTH IN 2 DAYS 05/11/16 18:45 Aerobic Blood Culture - Preliminary Resulted Blood Peripheral NO GROWTH IN 2 DAYS 05/11/16 18:45 Anaerobic Blood Culture - Preliminary Resulted Blood Peripheral NO GROWTH IN 2 DAYS Administered Medications Medications (Trade) Dose Ordered Sig/Digna Route PRN Reason Start Time Stop Time Status Last Admin Dose Admin Ceftriaxone Sodium/Sodium Chloride (Rocephin Inj/NS Inj) 100 ml @ 200 mls/hr Q24H IV 05/11/16 16:00 05/12/16 18:03 IV Flush (NS Flush) 2 ml UNSCH PRN IV FLUSH FLUSH AFTER USING IV ACCESS 05/11/16 16:15 05/12/16 05:49 IV Flush (NS Flush) 2 ml BID IV FLUSH 05/11/16 21:00 05/13/16 10:50 Pantoprazole Sodium (Protonix Inj) 40 mg DAILY IV 05/11/16 16:15 05/13/16 10:50 Lactulose (Lactulose Liq) 30 ml DAILY PO 05/12/16 09:00 05/13/16 10:49 Miscellaneous Information 1 Q361D XX 05/11/16 16:15 05/11/16 16:15 Chlorhexidine Gluconate (Chlorhexidine 2% Cloth) 3 pack Taper DAILY@04 TOP 05/12/16 04:00 05/08/17 03:59 05/13/16 04:00 Enoxaparin Sodium (Lovenox Inj) 60 mg Q24H SQ 05/11/16 22:00 05/12/16 22:27 Aspirin (Ecotrin Ec) 81 mg DAILY PO 05/12/16 11:00 05/13/16 10:49 Carvedilol (Coreg) 3.125 mg Q12HR PO 05/12/16 10:30 05/13/16 10:49 Oxycodone HCl (Roxicodone) 5 mg Q6H PRN PO PAIN SCALE 1 TO 10 05/13/16 10:30 05/13/16 10:50 Objective Remarks GENERAL: Middle aged female upright in room in nad. SKIN: Warm and dry. HEAD: Normocephalic. EYES: No injection or drainage. NECK: Supple, trachea midline. CARDIOVASCULAR: Regular rate and rhythm RESPIRATORY: Breath sounds equal bilaterally. No accessory muscle use. GASTROINTESTINAL: Abdomen soft, non-tender, nondistended. EXTREMITIES: No cyanosis NEUROLOGICAL: aox3. normal speech. independently ambulatory Assessment/Plan Problem List: (1) Recent pulmonary embolisn Status: Acute Plan: --on Lovenox 60mg SQ q 24 hours (2) Coagulopathy Status: Acute Plan: d/t liver failure --monitor Assessment 45y/o with coagulopathy and pulmonary embolism, admitted after being off anticoagulation therapy history of hypertension, diabetes, coronary artery disease status post stents, hyperlipidemia, COPD, untreated hepatitis C, hypothyroidism. history of bilateral lower extremity deep vein thromboses diagnosed in 2012. PE in 03/2016--d/c'd on coumadin Plan 1. continue Lovenox until recovery of liver--if renal function continues to improve, will increase dose of Lovenox, currently only on 60mg daily. 2. monitor coags Attending Statement The exam, history, and the medical decision-making described in the above note were completed with the assistance of the mid-level provider. I reviewed and agree with the findings presented. I attest that I had a [id number] encounter with the patient on the same day, and personally performed and documented my assessment and findings in the medical record. Pt seen and examined. Feels tired today. Cold all the time. Denies any bleeding, no menses, no h/o ulcer or esophageal varices. Noted microcytic anemia w/ above symptoms consistent with iron deficiency. Trial parenteral iron to optimize hgb given need to continue anticoagulation. LFT still elevated but improving. Doing well with LMWH- continue, anticipate bridge when LFt improve to baseline. Maddy Briggs May 13, 2016 11:55 Maritza Serrato MD May 13, 2016 17:58
[2016-05-13 15:15] LABS: ANA SCREEN NEG (NEG)
--- NOTE | 2016-05-13 15:31 | HHI.GIFU ---
GI Follow-up Note Consult Follow-up Subjective: Patient laying in bed comfortably,feeling better.No nausea, vomiting, abdominal pain.LFT's improving , awaiting hep c viral load and genotype Objective: PHYSICAL EXAMINATION: Vitals signs stable No fever Vital Signs Date Time Temp Pulse Resp B/P Pulse Ox O2 Delivery O2 Flow Rate FiO2 05/13/16 12:00 96.0 59 16 94/59 98 05/13/16 08:00 97.6 56 16 96/63 98 HEENT: Pupils round and reactive to light; normocephalic; atraumatic; jaundice. Throat is clear. NECK: Neck is supple, no JVD, no lymphadenopathy. CHEST: Chest is clear to auscultation and percussion. CARDIAC: Regular rate and rhythm with no murmur gallop or rubs. ABDOMEN: Soft, nondistended, nontender; no hepatosplenomegaly; bowel sounds are present in all four quadrants. EXTREMITIES: No clubbing, cyanosis, or edema. SKIN: Normal; no rash; jaundice. CLAMMER: No focal deficits; alert and oriented times three. Available Data (labs, X- Rays, Procedues) : Laboratory Tests Test 05/11/16 05/11/16 05/12/16 05/12/16 18:20 22:31 03:29 09:42 Urine Color YELLOW Urine Turbidity HAZY Urine pH 5.0 Urine Specific [place] 1.013 Urine Protein 30 mg/dL Urine Glucose (UA) NEG mg/dL Urine Ketones NEG mg/dL Urine Occult Blood NEG Urine Nitrite NEG Urine Bilirubin NEG Urine Urobilinogen 2.0 MG/DL Urine Leukocyte Esterase NEG Urine RBC 1 /hpf Urine WBC 2 /hpf Urine Squamous Epithelial 4 /hpf Cells Urine Bacteria RARE /hpf Urine Hyaline Casts 4 /lpf Urine Mucus FEW /lpf Microscopic Urinalysis Comment CATH-CULT NOT IND Urine Opiates Screen POS Urine Barbiturates Screen NEG Urine Amphetamines Screen NEG Urine Benzodiazepines Screen POS Urine Cocaine Screen POS Urine Cannabinoids Screen NEG Iron Level 15 MCG/DL Total Iron Binding Capacity 435 MCG/DL Percent Iron Saturation 3.4 % Ferritin 81 NG/ML Total Creatine Kinase 77 U/L Troponin I 0.57 NG/ML Salicylates Level 3.4 MG/DL Acetaminophen Level LESS THAN 2.0 MCG/ML White Blood Count 7.0 TH/MM3 Red Blood Count 4.18 MIL/MM3 Hemoglobin 10.3 GM/DL Hematocrit 33.1 % Mean Corpuscular Volume 79.0 FL Mean Corpuscular Hemoglobin 24.6 PG Mean Corpuscular Hemoglobin 31.1 % Concent Red Cell Distribution Width 18.0 % Platelet Count 192 TH/MM3 Mean Platelet Volume 7.4 FL Neutrophils (%) (Auto) 70.0 % Lymphocytes (%) (Auto) 22.3 % Monocytes (%) (Auto) 5.5 % Eosinophils (%) (Auto) 1.1 % Basophils (%) (Auto) 1.1 % Neutrophils # (Auto) 4.9 TH/MM3 Lymphocytes # (Auto) 1.6 TH/MM3 Monocytes # (Auto) 0.4 TH/MM3 Eosinophils # (Auto) 0.1 TH/MM3 Basophils # (Auto) 0.1 TH/MM3 CBC Comment AUTO DIFF Differential Comment AUTO DIFF CONFIRMED Prothrombin Time 21.8 SEC Prothromb Time International 1.9 RATIO Ratio Sodium Level 134 MEQ/L Potassium Level 4.0 MEQ/L Chloride Level 101 MEQ/L Carbon Dioxide Level 24.8 MEQ/L Anion Gap 8 MEQ/L Blood Urea Nitrogen 30 MG/DL Creatinine 2.25 MG/DL Estimat Glomerular Filtration 23 ML/MIN Rate Random Glucose 155 MG/DL Calcium Level 8.0 MG/DL Magnesium Level 1.6 MG/DL Total Bilirubin 0.9 MG/DL Aspartate Amino Transf 1098 U/L (AST/SGOT) Alanine Aminotransferase 590 U/L (ALT/SGPT) Alkaline Phosphatase 79 U/L Total Protein 6.8 GM/DL Albumin 2.8 GM/DL Tumor Marker Alpha Fetoprotein 1.2 NG/ML Mulvd-2-Mfzowmdntrt 201 mg/dL Anti-Nuclear Antibody Screen NEG Anti-Smooth Muscle Antibody Negative Hepatitis A IgM Antibody NEGATIVE Hepatitis B Surface Antigen NEGATIVE Hepatitis B Core IgM Antibody NEGATIVE Hepatitis C Antibody REACTIVE Lactic Acid Level 3.5 mmol/L Test 05/13/16 06:02 White Blood Count 5.5 TH/MM3 Red Blood Count 3.86 MIL/MM3 Hemoglobin 9.6 GM/DL Hematocrit 30.4 % Mean Corpuscular Volume 78.9 FL Mean Corpuscular Hemoglobin 25.0 PG Mean Corpuscular Hemoglobin 31.7 % Concent Red Cell Distribution Width 17.4 % Platelet Count 179 TH/MM3 Mean Platelet Volume 7.6 FL Neutrophils (%) (Auto) 63.6 % Lymphocytes (%) (Auto) 24.7 % Monocytes (%) (Auto) 9.3 % Eosinophils (%) (Auto) 1.6 % Basophils (%) (Auto) 0.8 % Neutrophils # (Auto) 3.5 TH/MM3 Lymphocytes # (Auto) 1.3 TH/MM3 Monocytes # (Auto) 0.5 TH/MM3 Eosinophils # (Auto) 0.1 TH/MM3 Basophils # (Auto) 0.0 TH/MM3 CBC Comment DIFF FINAL Differential Comment Prothrombin Time 16.1 SEC Prothromb Time International 1.4 RATIO Ratio Activated Partial 33.8 SEC Thromboplast Time Sodium Level 135 MEQ/L Potassium Level 4.9 MEQ/L Chloride Level 102 MEQ/L Carbon Dioxide Level 26.3 MEQ/L Anion Gap 7 MEQ/L Blood Urea Nitrogen 14 MG/DL Creatinine 1.26 MG/DL Estimat Glomerular Filtration 46 ML/MIN Rate Random Glucose 122 MG/DL Calcium Level 8.0 MG/DL Total Bilirubin 0.8 MG/DL Aspartate Amino Transf 513 U/L (AST/SGOT) Alanine Aminotransferase 442 U/L (ALT/SGPT) Alkaline Phosphatase 76 U/L Total Protein 6.7 GM/DL Albumin 2.8 GM/DL ASSESSMENT/PLAN: elevated lfts -multifactorial improving hep c ab positive-awaiting viral load/ genotype mild hepatic encephalopathy -resolved Recommendations fu labs ok to dc home from gi point fu office 12- weeks avoid etoh and hepatotoxics egd/colon op-may have to wait 6 month from [facility] unless emergency mri adrenal gland as per primary gi will sign off It was a pleasure seeing Chantal Smart. Thank you for this consult. Entered by: Beulah Chavarria MD May 13, 2016 15:31
[2016-05-13] MEDS: cefTRIAXone INJ 1,000 MG in SODIUM CHLORIDE 0.9% INJ 100 ML IV SCH (16:40)
[2016-05-13] MEDS ORDERED: IRON SUCROSE INJ 100 MG in SODIUM CHLORIDE 0.9% INJ 100 ML IV ONE (18:00)
[2016-05-13] MEDS: ENOXAPARIN SODIUM 60 MG/0.6 ML SYRINGE SQ SCH (20:34)
--- NOTE | 2016-05-13 23:47 | HHI.PR ---
Subjective Remarks patient seen this morning around 10 AM. She reports shortness of breath continues, however improved from admission. She denies any chest pain. Denies any bleeding Objective Vital Signs Date Time Temp Pulse Resp B/P Pulse Ox O2 Delivery O2 Flow Rate FiO2 05/13/16 21:44 100 21 05/13/16 20:00 96.8 83 17 98/71 96 05/13/16 16:00 98.3 80 16 99/64 95 05/13/16 12:00 96.0 59 16 94/59 98 05/13/16 08:00 97.6 56 16 96/63 98 05/13/16 04:00 96.8 82 16 107/73 92 05/13/16 00:11 95.7 76 16 99/68 98 I/O 05/12/16 05/12/16 05/12/16 05/13/16 05/13/16 05/13/16 07:00 15:00 23:00 07:00 15:00 23:00 Intake Total 1099 ml 648 ml 1285 ml 733 ml Balance 1099 ml 648 ml 1285 ml 733 ml Intake Oral 480 ml 480 ml 240 ml 600 ml IV Total 619 ml 168 ml 1045 ml 133 ml # Voids 2 2 2 4 # Bowel Movements 0 1 2 Result Diagram: 05/13/16 0602 05/13/16 0602 Objective Remarks GENERAL: patient sitting up in bed. Appears comfortable. Alert and oriented 3. SKIN: Warm and dry. HEAD: Normocephalic. EYES: No scleral icterus. No injection or drainage. NECK: Supple, trachea midline. No JVD CARDIOVASCULAR: Regular rate and rhythm without murmurs, gallops, or rubs. RESPIRATORY: Breath sounds equal bilaterally. No accessory muscle use.crackles in the bases. No rhonchi. No wheezes GASTROINTESTINAL: Abdomen soft, non-tender, nondistended. MUSCULOSKELETAL: No cyanosis, or edema. BACK: Nontender without obvious deformity. No CVA tenderness. A/P Assessment and Plan RESP: COPD with mild exacerbation Bilateral PE March 2016 -Nasal cannula oxygen to keep Sat >90% -DuoNeb q6 scheduled and PRN -VQ scan 04/13/16 Low probability -Consulted hematology for assistance with anticoagulation in a patient with liver failure-Dr. Serrato has started patient on Lovenox 40 mg subcutaneous daily -3/22 INR subtherapeutic. Continue Lovenox bridging. Appreciate hematology assistance. CV: Ischemic cardiomyopathy EF 15-20% Mild troponin elevation Compensated systolic heart failure Coronary artery disease status post multiple stents Status post AICD -Normal saline IV fluids at 84 ml per hour -2d echo 03/31/16 EF 15-20% -Watch closely for systolic heart failure exacerbation -Consult cardiology Dr. Colvin who has seen her before -Continue aspirin and Lovenox -Start Coreg 3.125 mg BID GI: Liver cirrhosis with hepatic failure -GI consulted. Patient is not a candidate for liver transplant due to severe ischemic cardiomyopathy -IV Protonix for GI prophylaxis -GI following. Appreciate assistance. -Pain control with narcotics. : Acute kidney failure Severe dehydration -Monitor renal function closely. Creatinines slowly improving -Renal function improved. Discontinue fluids secondary to CHF history. ID: Lactic acidosis -Place on empiric Ceftriaxone until cultures are back -Patient appears stable. Likely secondary to liver disease with impaired clearing of lactic acid. HEME: Coagulopathy -Monitor CBC, CMP, INR subtherapeutic. Hematology following. Appreciate assistance. ENDO: Hypokalemia Hyponatremia -Stable. Discontinue fluids. Monitor. PROPH: --Reviewed anticoagulation for history of PE as per hematology. Cem Roldan MD May 13, 2016 23:46 LINES: -Utilize peripheral IVs, central line if needed Cem Roldan MD May 13, 2016 23:46
[2016-05-14] VITALS: BP 95/64; PULSE 86; RESP 17; TEMP 96.3; O2SAT 98
[2016-05-14] MEDS: RESP: ALBUTEROL 2.5 MG/IPRATROPIUM 0.5 MG NEB (SCH) NEB ×3 (03:29→15:28)
[2016-05-14 04:00] VITALS: BP_SYST 108; BP_SYST 95; BP_DIAS 57; BP_DIAS 73; PULSE 72; PULSE 82; RESP 18; TEMP 97; O2SAT 94; O2SAT 95
[2016-05-14] MEDS: CHLORHEXIDINE GLUCONATE 2 % 1 PACK (2 CLOTHS) TOP SCH (04:00)
[2016-05-14 07:48] LABS: APTT (PATIENT) 34.1 SEC (24.3-30.1); AUTOMATED NEUTROPHIL # 3.4 TH/MM3 (1.8-7.7); BASOPHIL # 0.1 TH/MM3 (0-0.2); BASOPHIL % 1.1 % (0.0-2.0); EOSINOPHIL # 0.1 TH/MM3 (0-0.4); EOSINOPHIL % 1.4 % (0.0-4.0); HEMATOCRIT 32.3 % (35.0-46.0); INTERNATIONAL NORMALIZED RATIO 1.2 RATIO; LYMPH % 23.1 % (9.0-44.0); LYMPHOCYTE # 1.2 TH/MM3 (1.0-4.8); MEAN CELL VOLUME 79.2 FL (80.0-100.0); MEAN CORPUSCULAR HGB CONC 30.3 % (32.0-36.0); MONO % 8.6 % (0.0-8.0); NEUT % 65.8 % (16.0-70.0); PLATELET COUNT 168 TH/MM3 (150-450); PROTHROMBIN TIME - PATIENT 13.4 SEC (9.8-11.6); RED BLOOD COUNT 4.08 MIL/MM3 (4.00-5.30); RED CELL DISTRIBUTION WIDTH 17.5 % (11.6-17.2); WHITE BLOOD COUNT 5.2 TH/MM3 (4.0-11.0)
[2016-05-14 07:49] LABS: HEMO FLAGS AUTO DIFF
[2016-05-14 08:00] VITALS: BP 95/72; PULSE 70; RESP 16; TEMP 96.8; O2SAT 95
[2016-05-14 08:13] LABS: BICARBONATE 23.5 MEQ/L (21.0-32.0)
[2016-05-14 08:34] LABS: SCAN/DIFF AUTO DIFF CONFIRMED
[2016-05-14] MEDS: LACTULOSE SYRUP 20 GM/30 ML CUP PO SCH (08:35)
[2016-05-14] MEDS: PANTOPRAZOLE SODIUM 40 MG VIAL IV SCH (08:35)
[2016-05-14] MEDS: SODIUM CHLORIDE 0.9% FLUSH 5 ML FLUSH IV FLUSH SCH (08:35)
[2016-05-14] MEDS: CARVEDILOL 3.125 MG TAB PO SCH (08:35)
[2016-05-14] MEDS: ASPIRIN EC 81 MG TABEC PO SCH (08:35)
[2016-05-14] MEDS ORDERED: ENOXAPARIN SODIUM 60 MG/0.6 ML SYRINGE SQ SCH ×2 (09:15→21:00)
[2016-05-14 11:53] LABS: HCV RNA PCR IU/ML 113 IU/mL (()); HCV RNA PCR LOGIU/ML 2.05 (())
--- NOTE | 2016-05-14 12:15 | PD.ONC.PN ---
Subjective Subjective Remarks Afebrile overnight. Patient resting comfortably without complaint. No bleeding. Tolerating Lovenox shot. Objective Data Date Time Temp Pulse Resp B/P Pulse Ox O2 Delivery O2 Flow Rate FiO2 05/14/16 08:00 96.8 70 16 95/72 95 05/14/16 04:00 97.0 72 18 95/73 94 05/14/16 00:00 96.3 86 17 95/64 98 05/13/16 21:44 100 21 05/13/16 20:00 96.8 83 17 98/71 96 05/13/16 16:00 98.3 80 16 99/64 95 05/14/16 05/14/16 05/14/16 07:00 15:00 23:00 Output Total 200 ml Balance -200 ml Result Diagram: 05/14/16 0545 05/14/16 0545 Laboratory Results Laboratory Tests Test 05/14/16 05:45 White Blood Count 5.2 TH/MM3 Red Blood Count 4.08 MIL/MM3 Hemoglobin 9.8 GM/DL Hematocrit 32.3 % Mean Corpuscular Volume 79.2 FL Mean Corpuscular Hemoglobin 24.0 PG Mean Corpuscular Hemoglobin 30.3 % Concent Red Cell Distribution Width 17.5 % Platelet Count 168 TH/MM3 Mean Platelet Volume 7.8 FL Neutrophils (%) (Auto) 65.8 % Lymphocytes (%) (Auto) 23.1 % Monocytes (%) (Auto) 8.6 % Eosinophils (%) (Auto) 1.4 % Basophils (%) (Auto) 1.1 % Neutrophils # (Auto) 3.4 TH/MM3 Lymphocytes # (Auto) 1.2 TH/MM3 Monocytes # (Auto) 0.5 TH/MM3 Eosinophils # (Auto) 0.1 TH/MM3 Basophils # (Auto) 0.1 TH/MM3 CBC Comment AUTO DIFF Differential Comment AUTO DIFF CONFIRMED Prothrombin Time 13.4 SEC Prothromb Time International 1.2 RATIO Ratio Activated Partial 34.1 SEC Thromboplast Time Sodium Level 135 MEQ/L Potassium Level 4.0 MEQ/L Chloride Level 102 MEQ/L Carbon Dioxide Level 23.5 MEQ/L Anion Gap 10 MEQ/L Blood Urea Nitrogen 10 MG/DL Creatinine 0.99 MG/DL Estimat Glomerular Filtration 60 ML/MIN Rate Random Glucose 151 MG/DL Calcium Level 8.3 MG/DL Culture Results Microbiology Date/Time Procedure Status Source Growth 05/11/16 18:40 Aerobic Blood Culture - Preliminary Resulted Blood Peripheral NO GROWTH IN 3 DAYS 05/11/16 18:40 Anaerobic Blood Culture - Preliminary Resulted Blood Peripheral NO GROWTH IN 3 DAYS 05/11/16 18:45 Aerobic Blood Culture - Preliminary Resulted Blood Peripheral NO GROWTH IN 3 DAYS 05/11/16 18:45 Anaerobic Blood Culture - Preliminary Resulted Blood Peripheral NO GROWTH IN 3 DAYS Administered Medications Medications (Trade) Dose Ordered Sig/Digna Route PRN Reason Start Time Stop Time Status Last Admin Dose Admin Ceftriaxone Sodium/Sodium Chloride (Rocephin Inj/NS Inj) 100 ml @ 200 mls/hr Q24H IV 05/11/16 16:00 05/13/16 16:40 IV Flush (NS Flush) 2 ml UNSCH PRN IV FLUSH FLUSH AFTER USING IV ACCESS 05/11/16 16:15 05/12/16 05:49 IV Flush (NS Flush) 2 ml BID IV FLUSH 05/11/16 21:00 05/14/16 08:35 Pantoprazole Sodium (Protonix Inj) 40 mg DAILY IV 05/11/16 16:15 05/14/16 08:35 Lactulose (Lactulose Liq) 30 ml DAILY PO 05/12/16 09:00 05/14/16 08:35 Miscellaneous Information 1 [id number] XX 05/11/16 16:15 05/11/16 16:15 Chlorhexidine Gluconate (Chlorhexidine 2% Cloth) 3 pack Taper DAILY@04 TOP 05/12/16 04:00 05/08/17 03:59 05/14/16 04:00 Aspirin (Ecotrin Ec) 81 mg DAILY PO 05/12/16 11:00 05/14/16 08:35 Carvedilol (Coreg) 3.125 mg Q12HR PO 05/12/16 10:30 05/14/16 08:35 Oxycodone HCl (Roxicodone) 5 mg Q6H PRN PO PAIN SCALE 1 TO 10 05/13/16 10:30 05/14/16 11:41 Enoxaparin Sodium (Lovenox Inj) 60 mg BID SQ 05/14/16 09:15 05/14/16 11:42 Objective Remarks GENERAL: Middle aged female lying supine in bed in nad. SKIN: Warm and dry. HEAD: Normocephalic. EYES: No injection or drainage. NECK: Supple, trachea midline. CARDIOVASCULAR: Regular rate and rhythm RESPIRATORY: Breath sounds equal bilaterally. No accessory muscle use. GASTROINTESTINAL: Abdomen soft, non-tender, nondistended. EXTREMITIES: No cyanosis NEUROLOGICAL: awake and alert, normal speech. moving extremities. Assessment/Plan Problem List: (1) Recent pulmonary embolisn Status: Acute Plan: --on Lovenox 60mg SQ q 12 hours (2) Coagulopathy Status: Acute Plan: d/t liver failure --monitor Assessment 45y/o with coagulopathy and pulmonary embolism, admitted after being off anticoagulation therapy history of hypertension, diabetes, coronary artery disease status post stents, hyperlipidemia, COPD, untreated hepatitis C, hypothyroidism. history of bilateral lower extremity deep vein thromboses diagnosed in 2012. PE in 03/2016--d/c'd on coumadin Plan 1.increase Lovenox to 60mg SQ BID. 2. start coumadin. consult pharmacy. 3. monitor CBC, INR Attending Statement The exam, history, and the medical decision-making described in the above note were completed with the assistance of the mid-level provider. I reviewed and agree with the findings presented. I attest that I had a [id number] encounter with the patient on the same day, and personally performed and documented my assessment and findings in the medical record. Pt seen and examined. Pt feels less fatigue with iron. Able to give herself injection. Discussed plan to resume her anticoagulant therapy. Advise to follow up with PCP. No bleeding noted. Maddy Briggs May 14, 2016 12:15 Maritza Serrato MD May 14, 2016 18:00
[2016-05-14] MEDS ORDERED: THIAMINE HCL 100 MG TAB PO ONE (12:30)
--- NOTE | 2016-05-14 12:44 | HHI.PR ---
Subjective Remarks Patient reports chronic lower back pain is severe. Patient requests increased pain medications. Denies any chest pain. Shortness of breath resolved. Objective Vital Signs Date Time Temp Pulse Resp B/P Pulse Ox O2 Delivery O2 Flow Rate FiO2 05/14/16 08:00 96.8 70 16 95/72 95 05/14/16 04:00 97.0 72 18 95/73 94 05/14/16 00:00 96.3 86 17 95/64 98 05/13/16 21:44 100 21 05/13/16 20:00 96.8 83 17 98/71 96 05/13/16 16:00 98.3 80 16 99/64 95 I/O 05/13/16 05/13/16 05/13/16 05/14/16 05/14/16 05/14/16 07:00 15:00 23:00 07:00 15:00 23:00 Intake Total 1285 ml 733 ml Output Total 200 ml Balance 1285 ml 733 ml -200 ml Intake Oral 240 ml 600 ml IV Total 1045 ml 133 ml Output Urine Total 200 ml # Voids 2 4 # Bowel Movements 1 2 Result Diagram: 05/14/16 0545 05/14/16 0545 Objective Remarks GENERAL: patient sitting up in bed. Appears comfortable. Alert and oriented 3. SKIN: Warm and dry. HEAD: Normocephalic. EYES: No scleral icterus. No injection or drainage. NECK: Supple, trachea midline. No JVD CARDIOVASCULAR: Regular rate and rhythm without murmurs, gallops, or rubs. RESPIRATORY: Breath sounds equal bilaterally. No accessory muscle use.crackles in the bases have resolved. No rhonchi. No wheezes GASTROINTESTINAL: Abdomen soft, non-tender, nondistended. MUSCULOSKELETAL: No cyanosis, or edema. BACK: Nontender without obvious deformity. No CVA tenderness. A/P Assessment and Plan RESP: COPD with mild exacerbation Bilateral PE March 2016 -Nasal cannula oxygen to keep Sat >90% -DuoNeb q6 scheduled and PRN -VQ scan 04/13/16 Low probability -Consulted hematology for assistance with anticoagulation in a patient with liver failure-Dr. Serrato has started patient on Lovenox 40 mg subcutaneous daily -05/13 INR subtherapeutic. Continue Lovenox bridging. Appreciate hematology assistance. -3/23. INR continue subtherapeutic. Bridging Lovenox. CV: Ischemic cardiomyopathy EF 15-20% Mild troponin elevation Compensated systolic heart failure Coronary artery disease status post multiple stents Status post AICD -Normal saline IV fluids at 84 ml per hour -2d echo 03/31/16 EF 15-20% -Watch closely for systolic heart failure exacerbation -s/p Consult cardiology Dr. Colvin who has seen her before -Continue aspirin and Lovenox -Continue Coreg 3.125 mg BID GI: Liver cirrhosis with hepatic failure -GI consulted. Patient is not a candidate for liver transplant due to severe ischemic cardiomyopathy -IV Protonix for GI prophylaxis -GI following. Appreciate assistance. -Pain control with narcotics. - Increased pain meds. : Acute kidney failure Severe dehydration -Monitor renal function closely. Creatinines slowly improving -Renal function improved. Discontinue fluids secondary to CHF history. ID: Lactic acidosis -Place on empiric Ceftriaxone until cultures are back -Patient appears stable. Likely secondary to liver disease with impaired clearing of lactic acid. HEME: Coagulopathy -Monitor CBC, CMP, INR subtherapeutic. Hematology following. Appreciate assistance. ENDO: Hypokalemia Hyponatremia //History of diabetes. Appears to be diet controlled on metformin. Hold metformin. Start sliding scale. A1c pending. -Stable. Discontinue fluids. Monitor. PROPH: --Continue anticoagulation for history of PE as per hematology. Cem Roldan MD May 14, 2016 12:44
[2016-05-14] MEDS ORDERED: SPIR25TA PO ×2 (12:46→13:02)
[2016-05-14] MEDS ORDERED: ASPI-110 PO ×2 (12:46→13:02)
[2016-05-14] MEDS ORDERED: WARF-20 PO ×2 (12:46→13:02)
[2016-05-14] MEDS ORDERED: METO25TA3 PO (12:46)
[2016-05-14] MEDS ORDERED: FURO20TA PO ×2 (12:46→13:02)
[2016-05-14] MEDS ORDERED: LISI-519 PO ×2 (12:46→13:02)
[2016-05-14] MEDS ORDERED: LEVO50TA4 PO ×2 (12:46→13:02)
[2016-05-14] MEDS ORDERED: LANTUS2P SQ ×2 (12:49→13:02)
[2016-05-14 12:53] LABS: INDIRECT BILIRUBIN 0.4 MG/DL (0.0-0.8); TOTAL BILIRUBIN ADULT 0.7 MG/DL (0.2-1.0)
[2016-05-14] MEDS ORDERED: ENOX60P SQ (13:02)
[2016-05-14] MEDS ORDERED: LACT10SO PO (13:02)
[2016-05-14] MEDS ORDERED: OMEP40CA2 PO (13:02)
[2016-05-14] MEDS ORDERED: CARV3.125 PO (13:02)
[2016-05-14] MEDS ORDERED: VITA100T2 PO (13:02)
[2016-05-14] MEDS ORDERED: OXYC-392 PO (13:03)
[2016-05-14 15:50] LABS: HEMOGLOBIN A1a 0.8 %; HEMOGLOBIN Ao 83.2 %; HEMOGLOBIN LA1C 2.3 %; HEMOGLOBIN P3 4.2 %
[2016-05-14] MEDS ORDERED: INSULIN ASPART SUPPLEMENTAL SCALE SQ SCH (16:00)
[2016-05-14] MEDS ORDERED: WARFARIN SOD 2.5 MG TAB PO SCH (16:00)
[2016-05-15] MEDS ORDERED: THIAMINE HCL 100 MG TAB PO SCH (09:00)
[2016-05-15 13:54] LABS: MITOCHONDRIAL ABS LESS THAN 20.0 U (())
[2016-05-15 19:53] LABS: HEPATITIS C RNA GENOTYPE NOT DETECTED (())
--- NOTE | 2016-05-22 14:48 | HHI.DS ---
Discharge Summary Admission Date May 11, 2016 at 10:52 Discharge Date: May 14, 2016 Admitting Diagnosis ACUTE KIDNEY INJURY, DYSPNEA (1) Liver failure ICD Code: K72.90 Diagnosis: Principal (2) Acute kidney failure ICD Code: N17.9 Diagnosis: Principal (3) Metabolic acidemia ICD Code: E87.2 Diagnosis: Principal (4) Recent pulmonary embolisn Diagnosis: Principal (5) Lactic acidosis ICD Code: E87.2 Diagnosis: Principal (6) COPD (chronic obstructive pulmonary disease) ICD Code: J44.9 Diagnosis: Secondary (7) DM (diabetes mellitus) ICD Code: E11.9 Diagnosis: Secondary (8) CAD (coronary artery disease) ICD Code: I25.10 Diagnosis: Secondary (9) CHF (congestive heart failure) ICD Code: I50.9 Diagnosis: Secondary (10) Presence of cardiac defibrillator ICD Code: Z95.810 Diagnosis: Secondary (11) HTN (hypertension) ICD Code: I10 Diagnosis: Secondary (12) HLD (hyperlipidemia) ICD Code: E78.5 Diagnosis: Secondary Procedures no invasive procedures. Brief History - From Admission This 45-year-old female with history of bilateral lower lobe pulmonary embolism , hepatitis C with cirrhosis, COPD, coronary artery disease with multiple stents , ischemic cardiomyopathy, type 2 diabetes who presented to emergency department with shortness of breath for the last few days. She was admitted to the hospital in March of this year with troponin level of 30 and also found to have bilateral lower lobe pulmonary emboli. She was released from the hospital on Lovenox and Coumadin. Echo on 03/31/16 showed 15-20% with moderate mitral regurgitation. She ran out of her Coumadin about a week ago, had no refill so started taking aspirin 81 mg 3 tabs daily. She has had increasing shortness of breath over the last 3 or 4 days with severe dyspnea on minimal exertion. She had a cardiac catheterization in November 2015 which showed multivessel coronary artery disease. Also states vomited 4 times yesterday. ER work up showed BUN 31 creatinine 2.7 (0.88 creat last admission) bilirubin 2.3 ( 1.6 last admission) AST 1461(994 in Feb) with AST 474 (427 in Feb) and lactic acid of 5.3. BNP was 1550. Her INR was 2.2 despite being off Coumadin for 1 week, and heparin was not started for this reason. I evaluated the patient in the ICU. She appears dehydrated and chronically ill. Exam reveals mild bilateral wheezing. Imaging Last Impressions Chest X-Ray 05/11/16 0843 Signed Impressions: Service Date/Time: Wednesday, May 11, 2016 09:13 - CONCLUSION: Compensated cardiomegaly. No acute cardiopulmonary process. Mason Ortega MD Lung Scan-VQ Nuclear Medicine 05/11/16 0000 Signed Impressions: Service Date/Time: Wednesday, May 11, 2016 15:39 - CONCLUSION: 1. Low probability scan for pulmonary embolus. 2. Patchy distribution of aerosol with central clumping characteristic of some degree of COPD. Mason Ortega MD Lower Extremity Ultrasound 05/11/16 0000 Signed Impressions: Service Date/Time: Wednesday, May 11, 2016 23:21 - CONCLUSION: Normal examination. Darin Tobias MD Abdomen/Pelvis CT 05/11/16 0000 Signed Impressions: Service Date/Time: Wednesday, May 11, 2016 10:58 - CONCLUSION: 1. 1.5 x 1.7 cm nonspecific left adrenal nodule. The left adrenal is minimally increased in size when compared to previous dated 06/02/12. It is stable when compared to previous dated 07/19/15 as such, it is likely benign. If there is strong clinical concern for malignancy MRI imaging could be performed for more definitive assessment. 2. The patient is post cholecystectomy. No intrahepatic biliary duct dilation is evident. 3. Cardiomegaly. Ricky Atkinson MD Transfer Summary This 45-year-old female with history of bilateral lower lobe pulmonary embolism diagnosed 03/31/16, hepatitis C with cirrhosis, COPD, coronary artery disease with multiple stents, ischemic cardiomyopathy, type 2 diabetes who presented to emergency department with shortness of breath for the last few days. She was admitted to the hospital in March of this year with troponin level of 30 and also found to have bilateral lower lobe pulmonary emboli. She was released from the hospital on Lovenox and Coumadin. Echo on 03/31/16 showed 15-20% with moderate mitral regurgitation. She ran out of her Coumadin about a week ago, had no refill so started taking aspirin 81 mg 3 tabs daily. She has had increasing shortness of breath over the last 3 or 4 days with severe dyspnea on minimal exertion. She had a cardiac catheterization in November 2015 which showed multivessel coronary artery disease. Also states vomited 4 times yesterday. ER work up showed BUN 31 creatinine 2.7 (0.88 creat last admission) bilirubin 2.3 (1.6 last admission) AST 1461(994 in Feb) with AST 474 (427 in Feb ) and lactic acid of 5.3. BNP was 1550. Her INR was 2.2 despite being off Coumadin for 1 week, and heparin was not started for this reason. I evaluated the patient in the ICU. She appears dehydrated and chronically ill. Exam reveals mild bilateral wheezing. SUBJ 05/12/16: Patient appears to be clinically improving with improved shortness of breath. Creatinine has improved from 2.46-2.2 with gentle hydration. INR down to 1.9 from 2.2. Hematology DrRamez Serrato has started Lovenox 60 mg subcutaneous daily for anticoagulation. Liver enzymes improving Hospital Course Renal failure improved with gentle hydration. Troponins mildly elevated. Cardiology was consult and, recommended follow-up as outpatient. LFTs elevated up to 1400 AST, improving by discharge to 300, likely secondary to hepatitis C, which antibody-positive during this admission. GI was consulted, will need a follow-up with GI as outpatient. Patient was found to have incidental 1.5 x 1.7 cm nonspecific left adrenal gland nodule, most likely benign, as only minimally increased in size since 2012, as well as 07/19/2015. Patient does have history of PE diagnosed in March, and was found to have subtherapeutic INR. Hematology was consulted, patient was started on bridging with Lovenox, which will need to continue until INR is therapeutic. For probably summary from most recent progress note, please see below. RESP: COPD with mild exacerbation Bilateral PE March 2016 -Nasal cannula oxygen to keep Sat >90% -DuoNeb q6 scheduled and PRN -VQ scan 04/13/16 Low probability -Consulted hematology for assistance with anticoagulation in a patient with liver failure-Dr. Serrato has started patient on Lovenox 40 mg subcutaneous daily -05/13 INR subtherapeutic. Continue Lovenox bridging. Appreciate hematology assistance. -05/14. INR continue subtherapeutic. Bridging Lovenox. CV: Ischemic cardiomyopathy EF 15-20% Mild troponin elevation Compensated systolic heart failure Coronary artery disease status post multiple stents Status post AICD -Normal saline IV fluids at 84 ml per hour -2d echo 03/31/16 EF 15-20% -Watch closely for systolic heart failure exacerbation -s/p Consult cardiology Dr. Colvin who has seen her before -Continue aspirin and Lovenox -Continue Coreg 3.125 mg BID GI: Liver cirrhosis with hepatic failure -GI consulted. Patient is not a candidate for liver transplant due to severe ischemic cardiomyopathy -IV Protonix for GI prophylaxis -GI following. Appreciate assistance. -Pain control with narcotics. - Increased pain meds. : Acute kidney failure Severe dehydration -Monitor renal function closely. Creatinines slowly improving -Renal function improved. Discontinue fluids secondary to CHF history. ID: Lactic acidosis -Place on empiric Ceftriaxone until cultures are back -Patient appears stable. Likely secondary to liver disease with impaired clearing of lactic acid. HEME: Coagulopathy -Monitor CBC, CMP, INR subtherapeutic. Hematology following. Appreciate assistance. ENDO: Hypokalemia Hyponatremia //History of diabetes. Appears to be diet controlled on metformin. Hold metformin. Start sliding scale. A1c pending. -Stable. Discontinue fluids. Monitor. PROPH: --Continue anticoagulation for history of PE as per hematology. Pt Condition on Discharge: Good Discharge Disposition: Discharge Home Discharge Time: <= 30 minutes Discharge Instructions DIET: Follow Instructions for: Heart Healthy Diet, Diabetic Diet Activities you can perform: Regular-No Restrictions Follow up Referrals: Cardiology - 1 Month with Zeke Colvin DO Gastroenterology - 1 Week with Beulah Melendez MD PCP Follow-up - 3-5 Days with Geeta Miranda MD New Orders: CBC WITH DIFF - 3-5 Days COMP MET PROF (CMP) - 3-5 Days PT/INR - 2-3 Days New Medications: Omeprazole (Omeprazole) 40 Mg Cap 40 MG PO DAILY prevent ulcer #30 Ref 0 CAP Lactulose Liq (Lactulose Liq) 10 Gm/15 Ml Soln 30 ML PO DAILY prevent confusion Days 30 ML Oxycodone (Oxycodone) 5 Mg Tab 5 MG PO Q4HR PRN PAIN SCALE 1 TO 10 #42 TAB Thiamine (Vitamin B-1) 100 Mg Tab 100 MG PO DAILY vitamin Days 30 TAB Changed Medications: Insulin Glargine Inj (Lantus Inj) 1,000 Unit/10 Ml Vial 15 UNITS SQ HS Blood Sugar Management Days 30 Ref 0 VIAL (Changed from: 25 UNITS ) Lisinopril (Lisinopril) 5 Mg Tab 2.5 MG PO DAILY Blood Pressure Management #30 Ref 0 TAB (Changed from: 5 MG) Continued Medications: Furosemide (Furosemide) 20 Mg Tab 20 MG PO DAILY prevent fluid overload #30 Ref 0 TAB (This prescription has been renewed) Levothyroxine (Levothyroxine) 50 Mcg Tab 50 MCG PO DAILY Thyroid #30 Ref 0 TAB (This prescription has been renewed) Warfarin (Warfarin) 4 Mg Tab 4 MG PO DAILY Blood Clot Prevention #30 Ref 0 TAB (This prescription has been renewed) Discontinued Medications: Metformin (Metformin) 1,000 Mg Tab 1000 MG PO BIDPC With meals Blood Sugar Management #60 Ref 0 TAB Metoprolol Tartrate (Metoprolol Tartrate) 25 Mg Tab 12.5 MG PO BID heart #30 Ref 0 TAB Metoprolol Tartrate (Metoprolol Tartrate) 25 Mg Tab 25 MG PO BID #60 Ref 0 TAB Cem Roldan MD May 22, 2016 14:48
--- NOTE | 2016-06-10 08:27 | EKG ---
Date Performed: 05/11/2016 Time Performed: 08:30:02 PTAGE: 45 years EKG: Sinus rhythm Right axis deviation Possible inferior infarct - age undetermined Possible lateral infarct - age und etermined Low QRS voltages in limb leads Abnormal ECG PREVIOUS TRACING : 03/31/2016 03.15 Compared to prior tracing no significant change DOCTOR: Lior Shankar Interpretating Date/Time 06/10/2016 08:25:24
[2016-06-30] MEDS ORDERED: VITA250T25 PO (10:27)
[2016-06-30] MEDS ORDERED: CARV3.12 PO ×2 (10:27→10:46)
[2016-06-30] MEDS ORDERED: NITR0.4S SL (10:27)
[2016-06-30] MEDS ORDERED: SPIR25TA PO ×2 (10:27→10:46)
[2016-06-30] MEDS ORDERED: LANTUS2P SQ ×2 (10:40→10:47)
[2016-06-30] MEDS ORDERED: LISI-519 PO (10:45)
[2016-06-30] MEDS ORDERED: WARF-20 PO (10:45)
[2016-06-30] MEDS ORDERED: LEVO50TA4 PO (10:46)
[2016-06-30] MEDS ORDERED: FURO20TA PO (10:46)
[2016-07-13] MEDS ORDERED: VANC1000P IV (09:53)
[2016-07-13] MEDS ORDERED: LANTUS2P SQ (09:53)
== END 2016-05-14 16:07 | disposition home or self-care (01) | DRG 442 ==
LOC: PHED 08:16 → PHEDA 10:52 → HIME 13:51 → HOCA 05-12 11:10
PROVIDERS: ADMIT Internal Medicine; ATTEND Internal Medicine
DX: K72.90 Hepatic failure, unspecified without coma (principal); N17.9 Acute kidney failure, unspecified; D68.9 Coagulation defect, unspecified; E87.2 Acidosis; I50.22 Chronic systolic (congestive) heart failure; E87.1 Hypo-osmolality and hyponatremia; J44.1 Chronic obstructive pulmonary disease with (acute) exacerbation; K74.60 Unspecified cirrhosis of liver; B19.20 Unspecified viral hepatitis C without hepatic coma; E86.0 Dehydration; I25.10 Atherosclerotic heart disease of native coronary artery without angina pectoris; I25.5 Ischemic cardiomyopathy; Z95.5 Presence of coronary angioplasty implant and graft; Z95.810 Presence of automatic (implantable) cardiac defibrillator; I25.2 Old myocardial infarction; I34.0 Nonrheumatic mitral (valve) insufficiency; Z86.711 Personal history of pulmonary embolism; Z86.718 Personal history of other venous thrombosis and embolism; Z91.14 Patient's other noncompliance with medication regimen; E87.6 Hypokalemia; E11.9 Type 2 diabetes mellitus without complications; F17.210 Nicotine dependence, cigarettes, uncomplicated; I10 Essential (primary) hypertension; E78.5 Hyperlipidemia, unspecified; E03.9 Hypothyroidism, unspecified; K08.89 Other specified disorders of teeth and supporting structures; G89.29 Other chronic pain; M54.5 Low back pain
CPT/HCPCS: 36600; 71010; 74176; 78582; 80048; 80053; 80074; 80076; 80307; 81001; 82103; 82105; 82140; 82390; 82550; 82728; 82805; 83036; 83520; 83540; 83550; 83605; 83690; 83735; 83880; 84484; 85025; 85610; 85730; 86038; 86256; 87040; 87522; 87902; 93005; 93970; 94640; 94664; 96365; A9540; A9567; C9113; J0696; J1644; J1650; J1756; J2270; J2405; J7030

== ENCOUNTER 2016-05-16 12:04 | Inpatient (IN) | payer OTHER ==
[~2016-05-16] VITALS: Ht 154.9 cm; Wt 73.2 kg
[~2016-05-16 12:04] MED LIST changes: -ALPR0.25 PO; +ASPI-110 PO; -ATOR1TAB18 PO; +CARV3.125 PO; +ENOX60P SQ; -ENOX80P SQ; +LACT10SO PO; -LISI-515 PO; +LISI-519 PO; -METF1000 PO; -METO25TA3 PO; +OMEP40CA2 PO; +OXYC-392 PO; -PANT40TA3 PO; -PRED10 PO; -VENTAER INH; +VITA100T2 PO; -ZITH250T PO
[2016-05-16 12:06] VITALS: BP 105/69; PULSE 86; RESP 24; TEMP 97.7; O2SAT 100
[2016-05-16] MEDS ORDERED: SODIUM CHLORIDE 0.9% FLUSH 10 ML FLUSH IVF PRN (12:30)
--- NOTE | 2016-05-16 13:03 | RADRPT ---
EXAM DATE/TIME: 05/16/2016 12:57 [facility] COMPARISON: CHEST SINGLE AP, May 11, 2016, 9:13. CHEST PA & LAT, June 03, 2012, 13:52. INDICATIONS : Chest Pain, Short of Breath. MEDICAL HISTORY : Myocardial infarction. Hypercholesterolemia. CAD. Hyperlipidemia. COPD. DVT. Acute renal failure. Lisa betes. Anticoagulant therapy, Warfarin. SURGICAL HISTORY : Coronary artery stent.CABG Cholecystectomy.AICD. Cardiac cath. Tubal ligation. section. Appe ndectomy. ENCOUNTER: Initial ACUITY: 1 day PAIN SCORE: 3/10 LOCATION: Bilateral chest FINDINGS: PA and lateral views of the chest demonstrate a single lead cardiac device. The heart size is moderat eron enlarged. The pulmonary vasculature appears normal in caliber. The lungs are well inflated and cl ear. Osseous structures are unremarkable. CONCLUSION: Stable mild cardiomegaly without evidence of recurrent congestive heart failure. The lungs are clear. . Anjana Paez MD on May 16, 2016 at 13:01 Board Certified Radiologist. This report was verified electronically.
[2016-05-16 13:18] LABS: AUTOMATED NEUTROPHIL # 4.4 TH/MM3 (1.8-7.7); BASOPHIL # 0.1 TH/MM3 (0-0.2); BASOPHIL % 1.2 % (0.0-2.0); EOSINOPHIL % 0.7 % (0.0-4.0); HEMATOCRIT 31.7 % (35.0-46.0); LYMPH % 24.3 % (9.0-44.0); LYMPHOCYTE # 1.7 TH/MM3 (1.0-4.8); MEAN CELL VOLUME 76.8 FL (80.0-100.0); MEAN CORPUSCULAR HEMOGLOBIN 24.8 PG (27.0-34.0); MEAN CORPUSCULAR HGB CONC 32.3 % (32.0-36.0); NEUT % 63.8 % (16.0-70.0); PLATELET COUNT 226 TH/MM3 (150-450); RED BLOOD COUNT 4.12 MIL/MM3 (4.00-5.30); RED CELL DISTRIBUTION WIDTH 18.1 % (11.6-17.2); WHITE BLOOD COUNT 6.9 TH/MM3 (4.0-11.0)
--- NOTE | 2016-05-16 13:18 | PD ---
HPI Chief Complaint: Respiratory Symptoms Time Seen by Provider: 12:20 Travel History International Travel<30 days: No Contact w/Intl Traveler<30days: No Traveled to known affect area: No History of Present Illness HPI Patient is a 45 year old female presenting to the emergency department for evaluation of shortness of breath, vomiting, lower extremities edema and abdominal bloating. Patient states she was discharged from the hospital on 14 May, last night she began to feel more short of breath she vomited twice last night and 3 times this morning. She reports increased edema in her lower extremities and her abdomen. Patient denies any other complaints at this time. PFSH Past Medical History Hx Anticoagulant Therapy: Yes (Warfarin) Anemia: No Arthritis: No Asthma: No Autoimmune Disease: No Blood Disorders: No Bipolar Disorder: No Anxiety: No Depression: No Heart Rhythm Problems: No Cancer: No Cardiac Catheterization: Yes Cardiovascular Problems: Yes High Cholesterol: Yes Chemotherapy: No Chest Pain: Yes Congestive Heart Failure: No COPD: Yes Cerebrovascular Accident: No Coronary Artery Disease: Yes Diabetes: Yes Patient Takes Glucophage: Yes Diminished Hearing: No Deep Vein Thrombosis: Yes Endocrine: Yes GERD: No Genitourinary: No Headaches: No Hepatitis: No Hiatal Hernia: No Hypertension: Yes Immune Disorder: No Kidney Stones: No Musculoskeletal: No Neurologic: No Psychiatric: No Reproductive: No Respiratory: Yes Migraines: No Myocardial Infarction: Yes (2003) Pancreatitis: No Radiation Therapy: No Renal Failure: Yes (acute kidney failure) Schizophrenia: No Seizures: No Sickle Cell Disease: No Sleep Apnea: No Thyroid Disease: No Ulcer: No PNEUMOCCOCAL Vaccine (Year): 3 ?: Not Menopausal: Yes : 5 Para: 3 : 2 Tubal Ligation: Yes Past Surgical History Abdominal Surgery: Yes (cholecystectomy) AICD: Yes (defibrillator,medtronic,patient states unknown when was checked last.) Appendectomy: No Arteriovenous Shunt: No Cardiac Surgery: Yes (aicd,cardiac stents,coronary artey bypass graft,coronary stent,) Section: Yes (X 3) Cholecystectomy: Yes Coronary Artery Bypass Graft: No Coronary Stent: Yes (LAD) Ear Surgery: No Endocrine Surgery: No Eye Surgery: No Genitourinary Surgery: No Gynecologic Surgery: Yes ( section) Insulin Pump: No Joint Replacement: No Oral Surgery: No Pacemaker: No Thoracic Surgery: No Tonsillectomy: No Other Surgery: Yes (abdominal,aicd,appendectomy,cardiac surg,, cholecystectomy,stent,) Social History Alcohol Use: No Tobacco Use: Yes Substance Use: No Allergies-Medications (Allergen,Severity, Reaction): Coded Allergies: No Known Allergies (Unverified , 05/11/16) Reported Meds & Prescriptions Reported Meds & Active Scripts Active Oxycodone (Oxycodone HCl) 5 Mg Tab 5 Mg PO Q4HR PRN Omeprazole 40 Mg Cap 40 Mg PO DAILY Lovenox Inj (Enoxaparin Sodium) 60 Mg/0.6 Ml Syr 60 Mg SQ BID Vitamin B-1 (Thiamine HCl) 100 Mg Tab 100 Mg PO DAILY 30 Days Lactulose Liq (Lactulose) 10 Gm/15 Ml Soln 30 Ml PO DAILY 30 Days Coreg (Carvedilol) 3.125 Mg Tab 3.125 Mg PO Q12HR 30 Days Lantus Inj (Insulin Glargine) 1,000 Unit/10 Ml Vial 15 Units SQ HS 30 Days Furosemide 20 Mg Tab 20 Mg PO DAILY Levothyroxine (Levothyroxine Sodium) 50 Mcg Tab 50 Mcg PO DAILY Spironolactone 25 Mg Tab 25 Mg PO DAILY Warfarin 4 Mg Tab 4 Mg PO DAILY Lisinopril 5 Mg Tab 2.5 Mg PO DAILY Aspirin 81 Mg Tabdr 81 Mg PO DAILY 30 Days Wait until you are off of Lovenox injections to start your aspirin. Review of Systems Except as stated in HPI: all other systems reviewed are Neg General / Constitutional: No: Fever, Chills Eyes: No: Blurred Vision HENT: No: Headaches, Lightheadedness Cardiovascular: Positive: Dyspnea on exertion, Edema, No: Chest Pain or Discomfort Respiratory: Positive: Shortness of Breath Gastrointestinal: Positive: Nausea, Vomiting, Other (abdominal bloating), No: Abdominal Pain, Changes in Bowel Habits Genitourinary: No: Dysuria Musculoskeletal: No: Myalgias Neurologic: No: Dizziness, Syncope, Focal Abnormalities Physical Exam Narrative GENERAL: Well-developed, well-nourished, chronically ill-appearing female. Resting comfortably in no acute distress. Appears older then stated age. SKIN: Focused skin assessment warm/dry. HEAD: Atraumatic. Normocephalic. EYES: Pupils equal and round. No scleral icterus. No injection or drainage. ENT: No nasal bleeding or discharge. Mucous membranes pink and moist. NECK: Trachea midline. No JVD. CARDIOVASCULAR: Regular rate and rhythm. 2/6 systolic murmur. AICD in left upper chest wall RESPIRATORY: No accessory muscle use. Clear to auscultation. Breath sounds equal bilaterally. GASTROINTESTINAL: Abdomen soft, non-tender, nondistended. Hepatic and splenic margins not palpable. Positive bowel sounds, no rebound, no guarding. MUSCULOSKELETAL: No obvious deformities. No clubbing. No cyanosis. 1+ edema to bilateral lower extremities. Positive pedal pulses, brisk less than 3 second capillary refill. NEUROLOGICAL: Awake and alert. No obvious cranial nerve deficits. Motor grossly within normal limits. Normal speech. PSYCHIATRIC: Appropriate mood and affect; insight and judgment normal. Data Data Last Documented VS Vital Signs Date Time Temp Pulse Resp B/P Pulse Ox O2 Delivery O2 Flow Rate FiO2 05/16/16 15:38 78 22 94/63 92 05/16/16 12:43 Room Air 05/16/16 12:06 97.7 Orders Complete Blood Count With Diff (05/16/16 12:30) Comprehensive Metabolic Panel (05/16/16 12:30) B-Type Natriuretic Peptide (05/16/16 12:30) Act Partial Throm Time (Ptt) (05/16/16 12:30) Prothrombin Time / Inr (Pt) (05/16/16 12:30) Magnesium (Mg) (05/16/16 12:30) Ckmb (Isoenzyme) Profile (05/16/16 12:30) Troponin I (05/16/16 12:30) Iv Access Insert/Monitor (05/16/16 12:30) Electrocardiogram (05/16/16 12:30) Ecg Monitoring (05/16/16 12:30) Oximetry (05/16/16 12:30) Chest, Pa & Lat (05/16/16 12:30) Sodium Chloride 0.9% Flush (Ns Flush) (05/16/16 12:30) Lactic Acid Sepsis Protocol (05/16/16 12:30) Lipase (05/16/16 12:30) Urinalysis - C+S If Indicated (05/16/16 13:49) Blood Culture (05/16/16 13:49) Ct Abd/Pel W/O Iv Contrast (05/16/16 ) Sodium Chlor 0.9% 1000 Ml Inj (Ns 1000 M (05/16/16 14:00) Magnesium Sulfate 1 Gm Premix (Magnesium (05/16/16 14:00) Drug Screen, Random Urine (05/16/16 14:07) Furosemide Inj (Lasix Inj) (05/16/16 14:30) Labs Laboratory Tests Test 05/16/16 05/16/16 13:00 14:30 White Blood Count 6.9 TH/MM3 Red Blood Count 4.12 MIL/MM3 Hemoglobin 10.2 GM/DL Hematocrit 31.7 % Mean Corpuscular Volume 76.8 FL Mean Corpuscular Hemoglobin 24.8 PG Mean Corpuscular Hemoglobin 32.3 % Concent Red Cell Distribution Width 18.1 % Platelet Count 226 TH/MM3 Mean Platelet Volume 8.0 FL Neutrophils (%) (Auto) 63.8 % Lymphocytes (%) (Auto) 24.3 % Monocytes (%) (Auto) 10.0 % Eosinophils (%) (Auto) 0.7 % Basophils (%) (Auto) 1.2 % Neutrophils # (Auto) 4.4 TH/MM3 Lymphocytes # (Auto) 1.7 TH/MM3 Monocytes # (Auto) 0.7 TH/MM3 Eosinophils # (Auto) 0.0 TH/MM3 Basophils # (Auto) 0.1 TH/MM3 CBC Comment AUTO DIFF Differential Comment AUTO DIFF CONFIRMED Prothrombin Time 16.1 SEC Prothromb Time International 1.4 RATIO Ratio Activated Partial 33.4 SEC Thromboplast Time Sodium Level 129 MEQ/L Potassium Level 4.4 MEQ/L Chloride Level 95 MEQ/L Carbon Dioxide Level 22.0 MEQ/L Anion Gap 12 MEQ/L Blood Urea Nitrogen 13 MG/DL Creatinine 1.62 MG/DL Estimat Glomerular Filtration 34 ML/MIN Rate Random Glucose 151 MG/DL Lactic Acid Level 2.4 mmol/L Calcium Level 8.6 MG/DL Magnesium Level 1.4 MG/DL Total Bilirubin 1.1 MG/DL Aspartate Amino Transf 95 U/L (AST/SGOT) Alanine Aminotransferase 237 U/L (ALT/SGPT) Alkaline Phosphatase 80 U/L Total Creatine Kinase 63 U/L Troponin I 0.16 NG/ML B-Type Natriuretic Peptide 2127 PG/ML Total Protein 7.2 GM/DL Albumin 2.9 GM/DL Lipase 87 U/L Urine Color YELLOW Urine Turbidity CLEAR Urine pH 5.0 Urine Specific [place] 1.007 Urine Protein NEG mg/dL Urine Glucose (UA) NEG mg/dL Urine Ketones NEG mg/dL Urine Occult Blood NEG Urine Nitrite NEG Urine Bilirubin NEG Urine Urobilinogen LESS THAN 2.0 MG/DL Urine Leukocyte Esterase NEG Urine RBC 1 /hpf Urine WBC 3 /hpf Urine Squamous Epithelial 1 /hpf Cells Urine Mucus FEW /lpf Microscopic Urinalysis Comment CATH-CULT NOT IND Urine Opiates Screen POS Urine Barbiturates Screen NEG Urine Amphetamines Screen NEG Urine Benzodiazepines Screen NEG Urine Cocaine Screen NEG Urine Cannabinoids Screen NEG MDM Medical Decision Making Medical Screen Exam Complete: Yes Emergency Medical Condition: Yes Interpretation(s) Laboratory Tests Test 05/16/16 05/16/16 13:00 14:30 White Blood Count 6.9 TH/MM3 Red Blood Count 4.12 MIL/MM3 Hemoglobin 10.2 GM/DL Hematocrit 31.7 % Mean Corpuscular Volume 76.8 FL Mean Corpuscular Hemoglobin 24.8 PG Mean Corpuscular Hemoglobin 32.3 % Concent Red Cell Distribution Width 18.1 % Platelet Count 226 TH/MM3 Mean Platelet Volume 8.0 FL Neutrophils (%) (Auto) 63.8 % Lymphocytes (%) (Auto) 24.3 % Monocytes (%) (Auto) 10.0 % Eosinophils (%) (Auto) 0.7 % Basophils (%) (Auto) 1.2 % Neutrophils # (Auto) 4.4 TH/MM3 Lymphocytes # (Auto) 1.7 TH/MM3 Monocytes # (Auto) 0.7 TH/MM3 Eosinophils # (Auto) 0.0 TH/MM3 Basophils # (Auto) 0.1 TH/MM3 CBC Comment AUTO DIFF Differential Comment AUTO DIFF CONFIRMED Prothrombin Time 16.1 SEC Prothromb Time International 1.4 RATIO Ratio Activated Partial 33.4 SEC Thromboplast Time Sodium Level 129 MEQ/L Potassium Level 4.4 MEQ/L Chloride Level 95 MEQ/L Carbon Dioxide Level 22.0 MEQ/L Anion Gap 12 MEQ/L Blood Urea Nitrogen 13 MG/DL Creatinine 1.62 MG/DL Estimat Glomerular Filtration 34 ML/MIN Rate Random Glucose 151 MG/DL Lactic Acid Level 2.4 mmol/L Calcium Level 8.6 MG/DL Magnesium Level 1.4 MG/DL Total Bilirubin 1.1 MG/DL Aspartate Amino Transf 95 U/L (AST/SGOT) Alanine Aminotransferase 237 U/L (ALT/SGPT) Alkaline Phosphatase 80 U/L Total Creatine Kinase 63 U/L Troponin I 0.16 NG/ML B-Type Natriuretic Peptide 2127 PG/ML Total Protein 7.2 GM/DL Albumin 2.9 GM/DL Lipase 87 U/L Urine Color YELLOW Urine Turbidity CLEAR Urine pH 5.0 Urine Specific [place] 1.007 Urine Protein NEG mg/dL Urine Glucose (UA) NEG mg/dL Urine Ketones NEG mg/dL Urine Occult Blood NEG Urine Nitrite NEG Urine Bilirubin NEG Urine Urobilinogen LESS THAN 2.0 MG/DL Urine Leukocyte Esterase NEG Urine RBC 1 /hpf Urine WBC 3 /hpf Urine Squamous Epithelial 1 /hpf Cells Urine Mucus FEW /lpf Microscopic Urinalysis Comment CATH-CULT NOT IND Urine Opiates Screen POS Urine Barbiturates Screen NEG Urine Amphetamines Screen NEG Urine Benzodiazepines Screen NEG Urine Cocaine Screen NEG Urine Cannabinoids Screen NEG Last Impressions Chest X-Ray 05/16/16 1230 Signed Impressions: Service Date/Time: Monday, May 16, 2016 12:57 - CONCLUSION: Stable mild cardiomegaly without evidence of recurrent congestive heart failure. The lungs are clear.. Anjana Paez MD Abdomen/Pelvis CT 05/16/16 0000 Signed Impressions: Service Date/Time: Monday, May 16, 2016 14:31 - CONCLUSION: Significantly abnormal exam with new onset ascites and diffuse anasarca. Etiology of this is unknown. No clear evidence of inflammatory site within the abdomen or pelvis. Anjana Paez MD Last Impressions Chest X-Ray 05/16/16 1230 Signed Impressions: Service Date/Time: Monday, May 16, 2016 12:57 - CONCLUSION: Stable mild cardiomegaly without evidence of recurrent congestive heart failure. The lungs are clear.. Anjana Paez MD Vital Signs Date Time Temp Pulse Resp B/P Pulse Ox O2 Delivery O2 Flow Rate FiO2 05/16/16 12:43 28 96 Room Air 05/16/16 12:06 97.7 86 24 105/69 100 Room Air Differential Diagnosis CHF versus exacerbation of COPD versus ascites versus other Narrative Course Patient is a 45-year-old female that presented to the emergency department for increasing shortness of breath abdominal distention and vomiting starting last night. Patient was discharged from the hospital on May 14, 2016. At that time she presented with the same shortness of breath. No chest pain at this time. Patient had a cardiac catheterization in November 2015 which showed multivessel coronary artery disease, recent ejection fraction was 15-20% with moderate MVR. Patient has a history of bilateral pulmonary embolisms as well as DVT. Labs and imaging ordered, IV access initiated, telemetry monitoring and continuous pulse oximetry placed. CBC shows improvement in hemoglobin and hematocrit Chemistry with a lactic acid of 2.4, magnesium 1.4, renal function has improved from prior. Magnesium bolus 1 dose ordered, normal saline bolus 1 ordered. Urinalysis, blood cultures, CT of the abdomen and pelvis ordered and pending. BNP 2127 increased from prior on 05/11/16 at that time it was 1550. Lasix 40 mg IV [address] the abdomen and pelvis shows new onset ascites and anasarca. Troponin 0.16 which is improved from prior and is trending down. Hospitalist paged for admission. Dr. Zabala accepted admission. Sepsis Criteria Severe Sepsis (+one): Hypotension, Lactate >2 Diagnosis Primary Impression: CHF (congestive heart failure) Qualified Code: I50.9 - Congestive heart failure, unspecified congestive heart failure chronicity, unspecified congestive heart failure type Additional Impressions: Ascites Qualified Code: R18.8 - Other ascites Electrolyte abnormality Hyponatremia Admitting Information Admitting Physician Requests: Admit Condition: Stable Aziza Laurent May 16, 2016 13:18
[2016-05-16 13:22] LABS: HEMO FLAGS AUTO DIFF
[2016-05-16 13:30] LABS: APTT (PATIENT) 33.4 SEC (24.3-30.1); INTERNATIONAL NORMALIZED RATIO 1.4 RATIO; PROTHROMBIN TIME - PATIENT 16.1 SEC (9.8-11.6)
[2016-05-16 13:46] LABS: ANION GAP 12 MEQ/L (5-15); AST (GOT) 95 U/L (15-37); BLOOD UREA NITROGEN 13 MG/DL (7-18); CHLORIDE 95 MEQ/L (98-107); GLOMERULAR FILTRATION RATE 34 ML/MIN (>89); MAGNESIUM 1.4 MG/DL (1.5-2.5); POTASSIUM 4.4 MEQ/L (3.5-5.1); SODIUM (NA) 129 MEQ/L (136-145)
[2016-05-16 13:52] LABS: ALKALINE PHOSPHATASE 80 U/L (45-117); ALT (GPT) 237 U/L (10-53); TOTAL BILIRUBIN ADULT 1.1 MG/DL (0.2-1.0)
[2016-05-16 13:56] LABS: CREATINE KINASE 63 U/L (26-192)
[2016-05-16] MEDS ORDERED: MAGNESIUM SULFATE 1 GM PREMIX 100 ML IV ONE (14:00)
[2016-05-16] MEDS ORDERED: SODIUM CHLOR 0.9% 1000 ML INJ 1,000 ML IV ONE (14:00)
[2016-05-16 14:12] LABS: SCAN/DIFF AUTO DIFF CONFIRMED
[2016-05-16] MEDS ORDERED: FUROSEMIDE 40 MG/4 ML VIAL IV PUSH ONE (14:30)
--- NOTE | 2016-05-16 14:55 | RADRPT ---
EXAM DATE/TIME: 05/16/2016 14:31 [facility] COMPARISON: CT ABDOMEN & PELVIS W/O CONTRAST, May 11, 2016, 10:58. INDICATIONS : Diffuse abdomen pain and swelling with nausea and vomiting. ORAL CONTRAST: No oral contrast ingested. RADIATION DOSE: 11.63 CTDIvol (mGy) MEDICAL HISTORY : Hypertension. renal failure, diabetes, deep vein thrombosis SURGICAL HISTORY : Cholecystectomy. Tubal ligation. section. ENCOUNTER: Initial ACUITY: 1 day PAIN SCALE: 7/10 LOCATION: Bilateral abdomen TECHNIQUE: Volumetric scanning of the abdomen and pelvis was performed. Using automated exposure control and adjustment of the mA and/or kV according to patient size, radiation dose was kept as low as reasonably achievable to obtain optimal diagnostic quality images. FINDINGS: This is an abnormal exam with significant changes from prior CT of May 11, 2016. There is diffuse anasarca of the soft tissues and new ascites with a small amount of free fluid seen adjacent to the spleen, liver and a large amount of free fluid identified within the pelvis. The sour ce of this fluid is not clearly identified on this exam. The anterior soft tissues demonstrate stable appearance of rounded areas of focal increased density within the right lower quadrant which may rep resent areas of injection granuloma. LOWER LUNGS: The visualized lower lungs are clear. There is moderate cardiomegaly present. LIVER: Homogeneous density without lesion. There is no dilation of the biliary tree. No calcifi ed gallstones. SPLEEN: Normal size without lesion. PANCREAS: Within normal limits. KIDNEYS: Normal in size and shape. There is no mass or hydronephrosis. Small calcific densities seen bilaterally which may represent vascular calcifications versus small stones. ADRENAL GLANDS: The left adrenal gland is mildly more prominent on the right which may reflect th e presence of a small adenoma. VASCULAR: There is no aortic aneurysm. BOWEL/MESENTERY: The stomach, small bowel, and colon demonstrate no acute abnormality. ABDOMINAL WALL: Intact RETROPERITONEUM: There is no lymphadenopathy. BLADDER: No wall thickening or mass. REPRODUCTIVE: Within normal limits. INGUINAL: There is no lymphadenopathy or hernia. MUSCULOSKELETAL: Within normal limits for patient age. CONCLUSION: Significantly abnormal exam with new onset ascites and diffuse anasarca. Etiology of this is unknown. No clear evidence of inflammatory site within the abdomen or pelvis. Anjana Paez MD on May 16, 2016 at 14:45 Board Certified Radiologist. This report was verified electronically.
[2016-05-16 15:09] LABS: LACTIC ACID GHOST NOT REPORTABLE
[2016-05-16 15:14] LABS: BLOOD, URINE NEG (NEG); GLUCOSE,URINE NEG (NEG); KETONE, URINE NEG (NEG); MUCUS URINE FEW /lpf (OCC); NITRITE,URINE NEG (NEG); SQUAMOUS EPITHELIAL CELL URINE 1 /hpf (0-5); URINE COLOR YELLOW (YELLW/STRAW)
[2016-05-16 15:17] LABS: COMMENT (UR) CATH-CULT NOT IND; CULTURE IF INDICATED CATH CULTURE NOT IND
[2016-05-16 15:18] LABS: AMPHETAMINE, URINE NEG (NEG); BARBITURATES, URINE NEG (NEG); COCAINE, URINE NEG (NEG)
[2016-05-16 15:38] VITALS: BP 94/63; PULSE 78; RESP 22; O2SAT 92
--- NOTE | 2016-05-16 16:09 | HHI.HP ---
[facility] No Primary Care Physician Admission Diagnosis CHF, ASCITES, ANASARCA, ELECTROLYTE ABN Diagnoses: Chief Complaint: shortness of breath, swelling Travel History International Travel<30 Days: No Contact w/Intl Traveler <30 Da: No Traveled to Known Affected Are: No History of Present Illness 45-year-old female with history of Hepatitis C, cirrhosis, CKD stage III, Bilateral PE on Coumadin, HTN, HLD, insulin dependent diabetes, CAD s/p stents, CHF EF 15-20% [id number], s/p AICD, COPD, presents with a 1 day history of shortness of breath, abdominal distention, lower extremity edema, and nausea/ vomiting. The patient was recently hospitalized 05/11-05/14 for shortness of breath with COPD exacerbation, liver cirrhosis evaluated by GI, not a candidate for liver transplant due to severe ischemic cardiomyopathy, and DEL on CKD. Upon discharge 2 days ago 05/14, the patient felt very well, denied any shortness of breath, abdominal swelling or leg swelling. The patient reports she started to notice swelling of her abdomen and legs late last night 05/15. She then noticed worsening shortness of breath, at rest and with exertion, associated with orthopnea, and complains of a "fullness" in the chest and abdomen but denies any specific chest pains. She reports a minimal nonproductive cough. Denies any fevers but had some chills last night. She reports compliance with medications and low sodium diet. She also reports multiple episodes of nausea and vomiting last night, unable to keep down any food. Also reports diffuse abdominal pain and distention. Her friend also noticed her to appear more jaundiced and urged her to come to the ER. She has been unable to sleep because of feeling so uncomfortable. 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 Review of Systems Constitutional: COMPLAINS OF: Chills, DENIES: Diaphoretic episodes, Fatigue, Fever, Dizziness Endocrine: DENIES: Polydipsia, Polyuria, Polyphagia Eyes: DENIES: Blurred vision, Eye pain, Vision loss, Double Vision Ears, nose, mouth, throat: DENIES: Throat pain, Running Nose, Odynophagia Respiratory: COMPLAINS OF: Cough, Shortness of breath, DENIES: Wheezing, Sputum production Cardiovascular: COMPLAINS OF: Dyspnea on Exertion, Lower Extremity Edema, Orthopnea, DENIES: Chest pain, Palpitations, Syncope Gastrointestinal: COMPLAINS OF: Abdominal pain, Nausea, Vomiting, DENIES: Bloody stools, Constipation, Diarrhea Genitourinary: DENIES: Urinary frequency, Urgency, Dysuria Musculoskeletal: DENIES: Joint pain, Back pain, Neck pain Integumentary: DENIES: Abnormal pigmentation, Pruritus, Rash Hematologic/lymphatic: DENIES: Bruising, Lymphadenopathy Immunologic/allergic: DENIES: Eczema, Urticaria Neurologic: DENIES: Abnormal gait, Headache, Localized weakness Psychiatric: DENIES: Anxiety, Depression Past Family Social History Past Medical History Bilateral Lower lobe PE in March, Hypertension Insulin Dependent Diabetes CADmultiple cardiac stents Hyperlipidemia CHF Last EF was 15-20% 03/31/16 status post AICD. COPD Hepatitis C, never treated History of DVT Hypothyroidism Liver cirrhosis CKD stage III Past Surgical History AICD placement, Dec 2014, in [place] Cardiac stents and angiograms (last stent placed at age 32) C-sections x3 Tubal ligation Cholecystectomy Reported Medications Oxycodone (Oxycodone HCl) 5 Mg Tab 5 Mg PO Q4HR PRN Omeprazole 40 Mg Cap 40 Mg PO DAILY Lovenox Inj (Enoxaparin Sodium) 60 Mg/0.6 Ml Syr 60 Mg SQ BID Vitamin B-1 (Thiamine HCl) 100 Mg Tab 100 Mg PO DAILY 30 Days Lactulose Liq (Lactulose) 10 Gm/15 Ml Soln 30 Ml PO DAILY 30 Days Coreg (Carvedilol) 3.125 Mg Tab 3.125 Mg PO Q12HR 30 Days Lantus Inj (Insulin Glargine) 1,000 Unit/10 Ml Vial 15 Units SQ HS 30 Days Furosemide 20 Mg Tab 20 Mg PO DAILY Levothyroxine (Levothyroxine Sodium) 50 Mcg Tab 50 Mcg PO DAILY Spironolactone 25 Mg Tab 25 Mg PO DAILY Warfarin 4 Mg Tab 4 Mg PO DAILY Lisinopril 5 Mg Tab 2.5 Mg PO DAILY Aspirin 81 Mg Tabdr 81 Mg PO DAILY 30 Days Wait until you are off of Lovenox injections to start your aspirin. Allergies: Coded Allergies: No Known Allergies (Unverified , 05/11/16) Active Ordered Medications Current Medications Medications (Trade) Dose Ordered Sig/Digna Route Start Time Stop Time Status Last Admin (NS Flush) 2 ml UNSCH PRN IVF 05/16/16 12:30 Family History Maternal family with heart disease and diabetes Paternal family with heart disease Social History Smoked tobacco 1 PPD, but now quit 1 week ago Denies any alcohol use Denies any current illicit drug use Meth IV use many years ago Physical Exam Vital Signs Vital Signs Date Time Temp Pulse Resp B/P Pulse Ox O2 Delivery O2 Flow Rate FiO2 05/16/16 15:38 78 22 94/63 92 05/16/16 12:43 28 96 Room Air 05/16/16 12:06 97.7 86 24 105/69 100 Room Air Physical Exam GENERAL: Well-nourished, well-developed middle aged female patient, in NAD. SKIN: No rashes, ecchymoses or lesions. Cool and dry. HEAD: Atraumatic. Normocephalic. No temporal or scalp tenderness. EYES: Pupils equal round and reactive. +scleral icterus. No injection or drainage. ENT: Nose without bleeding, purulent drainage or septal hematoma. Throat without erythema, tonsillar hypertrophy or exudate. Uvula midline. Airway patent. NECK: Trachea midline. Supple. CARDIOVASCULAR: Regular rate and rhythm without murmurs, gallops, or rubs. RESPIRATORY: No accessory muscle however dyspneic with conversation. Lung sounds diminished at bilateral bases, otherwise clear to auscultation. Breath sounds equal bilaterally. GASTROINTESTINAL: Abdomen soft, diffuse tenderness to palpation, worse at b/l upper quadrants, distended, +ascites. No guarding. MUSCULOSKELETAL: 2+ b/l lower extremity edema. No calf tenderness. NEUROLOGICAL: Awake and alert. Cranial nerves II through XII intact. Motor and sensory grossly within normal limits. Normal speech. Laboratory Laboratory Tests Test 05/16/16 05/16/16 13:00 14:30 White Blood Count 6.9 Red Blood Count 4.12 Hemoglobin 10.2 Hematocrit 31.7 Mean Corpuscular Volume 76.8 Mean Corpuscular Hemoglobin 24.8 Mean Corpuscular Hemoglobin 32.3 Concent Red Cell Distribution Width 18.1 Platelet Count 226 Mean Platelet Volume 8.0 Neutrophils (%) (Auto) 63.8 Lymphocytes (%) (Auto) 24.3 Monocytes (%) (Auto) 10.0 Eosinophils (%) (Auto) 0.7 Basophils (%) (Auto) 1.2 Neutrophils # (Auto) 4.4 Lymphocytes # (Auto) 1.7 Monocytes # (Auto) 0.7 Eosinophils # (Auto) 0.0 Basophils # (Auto) 0.1 CBC Comment AUTO DIFF Differential Comment AUTO DIFF CONFIRMED Prothrombin Time 16.1 Prothromb Time International 1.4 Ratio Activated Partial 33.4 Thromboplast Time Sodium Level 129 Potassium Level 4.4 Chloride Level 95 Carbon Dioxide Level 22.0 Anion Gap 12 Blood Urea Nitrogen 13 Creatinine 1.62 Estimat Glomerular Filtration 34 Rate Random Glucose 151 Lactic Acid Level 2.4 Calcium Level 8.6 Magnesium Level 1.4 Total Bilirubin 1.1 Aspartate Amino Transf 95 (AST/SGOT) Alanine Aminotransferase 237 (ALT/SGPT) Alkaline Phosphatase 80 Total Creatine Kinase 63 Troponin I 0.16 B-Type Natriuretic Peptide 2127 Total Protein 7.2 Albumin 2.9 Lipase 87 Urine Color YELLOW Urine Turbidity CLEAR Urine pH 5.0 Urine Specific Dexter 1.007 Urine Protein NEG Urine Glucose (UA) NEG Urine Ketones NEG Urine Occult Blood NEG Urine Nitrite NEG Urine Bilirubin NEG Urine Urobilinogen LESS THAN 2.0 Urine Leukocyte Esterase NEG Urine RBC 1 Urine WBC 3 Urine Squamous Epithelial 1 Cells Urine Mucus FEW Microscopic Urinalysis Comment CATH-CULT NOT IND Urine Opiates Screen POS Urine Barbiturates Screen NEG Urine Amphetamines Screen NEG Urine Benzodiazepines Screen NEG Urine Cocaine Screen NEG Urine Cannabinoids Screen NEG Date/Time Procedure Status Source Growth 05/16/16 14:20 Aerobic Blood Culture Received Blood Peripheral Pending 05/16/16 14:20 Anaerobic Blood Culture Received Blood Peripheral Pending Result Diagram: 05/16/16 1300 05/16/16 1300 Imaging Last Impressions Chest X-Ray 05/16/16 1230 Signed Impressions: Service Date/Time: Monday, May 16, 2016 12:57 - CONCLUSION: Stable mild cardiomegaly without evidence of recurrent congestive heart failure. The lungs are clear.. Anjana Paez MD Abdomen/Pelvis CT 05/16/16 0000 Signed Impressions: Service Date/Time: Monday, May 16, 2016 14:31 - CONCLUSION: Significantly abnormal exam with new onset ascites and diffuse anasarca. Etiology of this is unknown. No clear evidence of inflammatory site within the abdomen or pelvis. Anjana Paez MD Assessment and Plan Assessment and Plan 45-year-old female with history of Hepatitis C, cirrhosis, CKD stage III, Bilateral PE on Coumadin, HTN, HLD, insulin dependent diabetes, CAD s/p stents, CHF EF 15-20% [id number], s/p AICD, COPD, presents with a 1 day history of shortness of breath, abdominal distention, lower extremity edema, and nausea/ vomiting. The patient was recently hospitalized 05/11-05/14 for shortness of breath with COPD exacerbation, liver cirrhosis evaluated by GI, not a candidate for liver transplant due to severe ischemic cardiomyopathy, and DEL on CKD. Anasarca: suspect secondary to liver cirrhosis. See treatment below. -CXR images reviewed, shows cardiomegaly without evidence of recurrent CHF, lungs are clear. -CT abd/pelvis shows significantly abnormal exam with new onset ascites and diffuse anasarca. Liver Cirrhosis with Ascites, Jaundice, Elevated LFTs: seen on imaging as above -start IV Lasix 40mg daily -hold patient's spironolactone with hypotension -continue patient's lactulose -monitor Is&Os q8h -US guided diagnostic and therapeutic abdominal paracentesis ordered -consult Gastroenterology Chronic Ischemic Systolic CHF with EF 15-20% on last echo 03/31/16, has AICD -on IV Lasix as above -aspirin on hold while on Lovenox -Lisinopril and Coreg on hold for hypotension -unable to have statin with elevated LFTs Nausea/Vomiting/Abdominal Pain: suspect secondary to ascites -CT abd with diffuse anasarca however no acute intra-abdominal process -Supportive treatment with pain control and antiemetics prn -Start Protonix Lactic Acidosis: Lactic acid 2.4. Suspect secondary to recent vomiting. -s/p IVF bolus in the ER -repeat lactic acid in am Insulin Dependent Diabetes Mellitus: chronic -hold patient's Lantus 15mg sq hs until tolerating oral intake -monitor Accu-cheks and cover with SSI Pulmonary Embolism: diagnosed -on Lovenox 60mg sq bid with bridge to Coumadin, will need to hold if going for paracentesis -monitor INR, currently 1.4 elevated troponin likely due to renal insufficiency and fluid overload-denies any chest pain- no acute ST-T changes on EKG. CKD, stage III: Cr 1.67 -avoid further nephrotoxins -monitor BMP while on diuretic Hypothyroidism: chronic -continue patient's Synthroid CAD s/p stents: chronic -hold patient's aspirin while on Lovenox -hold patient's Coreg and lisinopril with current hypotension DVT Prophylaxis: on Lovenox GI Prophylaxis: on Protonix Written by Roma Fajardo, acting as scribe for Dr. Schmitz on 05/16/16 at 16: 25. patient was seen and examined today. presented with worsening sob- found to have ascites. will continue with diuretics with close monitoring of BP and renal function. will consult IR for paracentesis and GI. rest of assessment and plan as noted above. Discussed Condition With ER and the patient. Physician Certification 2 Midnight Certification Type: Admission for Inpatient Services Order for Inpatient Services The services are ordered in accordance with Medicare regulations or non- Medicare payer requirements, as applicable. In the case of services not specified as inpatient-only, they are appropriately provided as inpatient services in accordance with the 2-midnight benchmark. Estimated LOS (days): 3 days is the estimated time the patient will need to remain in the hospital, assuming treatment plan goals are met and no additional complications. Post-Hospital Plan: Home Roma Fajardo PA-C May 16, 2016 16:09 Lydia Schmitz MD May 16, 2016 17:56
[2016-05-16] MEDS ORDERED: GLUCAGON 1 MG/ML VIAL OTHER PRN (16:45)
[2016-05-16] MEDS ORDERED: DEXTROSE 50% IN WATER 50 ML VIAL(D50) IV PUSH PRN (16:45)
[2016-05-16 16:47] VITALS: BP 99/63; PULSE 78; RESP 18; O2SAT 97
[2016-05-16 18:18] VITALS: BP 107/64; PULSE 81; RESP 18; TEMP 97.3; O2SAT 100
[2016-05-16 20:00] VITALS: BP 108/65; PULSE 73; RESP 20; TEMP 98.6; O2SAT 98
[2016-05-16] MEDS: INSULIN ASPART SUPPLEMENTAL SCALE SQ SCH (21:00)
[2016-05-16] MEDS: ENOXAPARIN SODIUM 60 MG/0.6 ML SYRINGE SQ SCH (22:21)
--- NOTE | 2016-05-16 22:48 | RADRPT ---
EXAM DATE/TIME: 05/16/2016 21:27 [facility] COMPARISON: No previous studies available for comparison. INDICATIONS : Ascites. MEDICAL HISTORY : Myocardial infarction. Hypercholesterolemia. Chronic obstructive pulmonary disease. Congestive heart failure. Coronary artery disease. Hyperlipidemia. Hypertension. Deep vein thrombosis. . Abor tion x 2. Acute renal failure. Anticoagulant therapy, Warfarin. Diabetes. Blood transfusions. SURGICAL HISTORY : Cholecystectomy. section. Tubal ligation. Internal defibrillatior. Appendectomy. Coronary ar josue stent. ENCOUNTER: Initial ACUITY: 2 days PAIN SCORE: 5/10 LOCATION: Abdomen. AREA EVALUATED: Abdominal quadrants. FINDINGS: Imaging of the abdomen and pelvis was performed to evaluate for ascites for possible paracentesis. CONCLUSION: 1. Mild ascites insufficient for paracentesis. Jovi Benitez MD on May 16, 2016 at 22:46 Board Certified Radiologist. This report was verified electronically.
[2016-05-17] VITALS (7 sets, daily range): BP systolic 95–115; BP diastolic 58–78; PULSE 74–95; RESP 18–21; TEMP 97.1–98.5; O2SAT 90–98
[2016-05-17] MEDS: LEVOTHYROXINE SODIUM 50 MCG TAB PO SCH (05:11)
[2016-05-17] MEDS: INSULIN ASPART SUPPLEMENTAL SCALE SQ SCH ×4 (05:14→21:00)
[2016-05-17 05:20] LABS: BICARBONATE 29.7 MEQ/L (21.0-32.0)
[2016-05-17] MEDS: LACTULOSE SYRUP 20 GM/30 ML CUP PO SCH (09:26)
[2016-05-17] MEDS: PANTOPRAZOLE SOD 40 MG DELAYED RELEASE TAB PO SCH (09:26)
[2016-05-17] MEDS: FUROSEMIDE 40 MG/4 ML VIAL IV PUSH SCH (09:27)
[2016-05-17] MEDS: ENOXAPARIN SODIUM 60 MG/0.6 ML SYRINGE SQ SCH ×2 (09:27→19:35)
[2016-05-17] MEDS: THIAMINE HCL 100 MG TAB PO SCH (09:27)
--- NOTE | 2016-05-17 11:26 | HHI.PR ---
Subjective Remarks in no acute distress. says that slept well last night. no new complaints. Objective Vitals Vital Signs Date Time Temp Pulse Resp B/P Pulse Ox O2 Delivery O2 Flow Rate FiO2 05/17/16 08:00 97.9 91 18 98/78 90 05/17/16 04:53 98.2 74 21 108/58 97 05/17/16 00:00 98.4 79 18 110/69 98 05/16/16 22:30 Room Air 05/16/16 20:00 98.6 73 20 108/65 98 05/16/16 18:18 97.3 81 18 107/64 100 05/16/16 16:47 78 18 99/63 97 Nasal Cannula 2 05/16/16 15:38 78 22 94/63 92 05/16/16 12:43 28 96 Room Air 05/16/16 12:06 97.7 86 24 105/69 100 Room Air I/O 05/16/16 05/16/16 05/16/16 05/17/16 05/17/16 05/17/16 07:00 15:00 23:00 07:00 15:00 23:00 Intake Total 120 ml 960 ml Output Total 350 ml Balance -230 ml 960 ml Intake Oral 120 ml 960 ml Output Urine Total 350 ml # Voids 1 2 # Bowel Movements 1 Result Diagram: 05/16/16 1300 05/17/16 0425 Imaging Last Impressions Chest X-Ray 05/16/16 1230 Signed Impressions: Service Date/Time: Monday, May 16, 2016 12:57 - CONCLUSION: Stable mild cardiomegaly without evidence of recurrent congestive heart failure. The lungs are clear.. Anjana Paez MD Abdomen/Pelvis CT 05/16/16 0000 Signed Impressions: Service Date/Time: Monday, May 16, 2016 14:31 - CONCLUSION: Significantly abnormal exam with new onset ascites and diffuse anasarca. Etiology of this is unknown. No clear evidence of inflammatory site within the abdomen or pelvis. Anjana Paez MD Abdomen Ultrasound 05/16/16 0000 Signed Impressions: Service Date/Time: Monday, May 16, 2016 21:27 - CONCLUSION: 1. Mild ascites insufficient for paracentesis. Jovi Benitez MD Objective Remarks GENERAL: This is a well-nourished, well-developed patient, in no apparent distress. CARDIOVASCULAR: Regular rate and regular rhythm without murmurs, gallops, or rubs. RESPIRATORY: Clear to auscultation. Breath sounds equal bilaterally. No wheezes , rales, or rhonchi. GASTROINTESTINAL: Abdomen soft, non-tender, distended. Normal, active bowel sounds MUSCULOSKELETAL: bilateral pedal edema. NEURO: Alert & Oriented x4 to person, place, time, situation. Moves all ext x4 Procedures none Medications and IVs Current Medications Sodium Chloride 2 ml 2 ml UNSCH PRN IVF FLUSH AFTER USING IV ACCESS; Start at 12:30 Sodium Chloride 1,000 ml @ 999 mls/hr BOLUS ONCE IV Last administered on 05/16 15:39; Start 05/16/16 at 14:00; Stop 05/16/16 at 15:00; Status DC Magnesium Sulfate/ Dextrose (Magnesium Sulfate 1 Gm Premix) 100 ml @ 100 mls/ hr ONCE ONCE IV Last administered on 05/16/16 15:40; Start 05/16/16 at 14:00 ; Stop 05/16/16 at 14:59; Status DC Furosemide (Lasix Inj) 40 mg ONCE ONCE IV PUSH Last administered on 05/16/16 15:38; Start 05/16/16 at 14:30; Stop 05/16/16 at 14:31; Status DC Enoxaparin Sodium (Lovenox Inj) 60 mg BID SQ Last administered on 05/17/16 09: 27; Start 05/16/16 at 21:00 Lactulose (Lactulose Liq) 30 ml DAILY PO Last administered on 05/17/16 09:26; Start 05/17/16 at 09:00 Levothyroxine Sodium (Synthroid) 50 mcg DAILY@06 PO Last administered on 05:11; Start 05/17/16 at 06:00 Oxycodone HCl (Roxicodone) 5 mg Q4HR PRN PO PAIN SCALE 1-5 Last administered on 05/16/16 18:44; Start 05/16/16 at 16:45; Stop 05/16/16 at 22:47; Status DC Thiamine HCl (Vitamin B1) 100 mg DAILY PO Last administered on 05/17/16 09:27 ; Start 05/17/16 at 09:00 Pantoprazole Sodium (Protonix) 40 mg DAILY PO Last administered on 05/17/16 09 :26; Start 05/17/16 at 09:00 Dextrose (D50w (Vial) Inj) 25 ml UNSCH PRN IV PUSH HYPOGLYCEMIA-SEE COMMENTS; Start 05/16/16 at 16:45 Glucagon (Glucagon Inj) 1 mg UNSCH PRN OTHER HYPOGLYCEMIA-SEE COMMENTS; Start 05/16/16 at 16:45 Insulin Aspart (NovoLOG SUPPLEMENTAL SCALE) 1 ACHS SLIDING SCALE SQ ; Start at 21:00 Furosemide (Lasix Inj) 40 mg DAILY IV PUSH Last administered on 05/17/16 09:27 ; Start 05/17/16 at 09:00 Oxycodone HCl (Roxicodone) 10 mg Q4H PRN PO PAIN 6-10 Last administered on 05/17 09:28; Start 05/16/16 at 22:45 Oxycodone HCl (Roxicodone) 5 mg Q4H PRN PO PAIN SCALE 1-5; Start 05/16/16 at 22 :47 A/P Assessment and Plan A/P Anasarca: suspect secondary to liver cirrhosis. See treatment below. -CXR images reviewed, shows cardiomegaly without evidence of recurrent CHF, lungs are clear. -CT abd/pelvis shows significantly abnormal exam with new onset ascites and diffuse anasarca. Liver Cirrhosis with Ascites, Jaundice, Elevated LFTs: seen on imaging as above -started IV Lasix 40mg daily -hold patient's spironolactone with hypotension -continue patient's lactulose -monitor Is&Os q8h -abdominal sonogram with not enough fluid for aspiration -consulted Gastroenterology Chronic Ischemic Systolic CHF with EF 15-20% on last echo 03/31/16, has AICD -on IV Lasix as above -aspirin on hold while on Lovenox -Lisinopril and Coreg on hold for hypotension -unable to have statin with elevated LFTs Nausea/Vomiting/Abdominal Pain: suspect secondary to ascites -CT abd with diffuse anasarca however no acute intra-abdominal process -Supportive treatment with pain control and antiemetics prn -Start Protonix Lactic Acidosis: Lactic acid 2.4. Suspect secondary to recent vomiting. -s/p IVF bolus in the ER Insulin Dependent Diabetes Mellitus: chronic -hold patient's Lantus 15units sq hs until tolerating oral intake -monitor Accu-cheks and cover with SSI Pulmonary Embolism: diagnosed -on Lovenox 60mg sq bid with bridge to Coumadin. -will resume coumadin soon- after seen by GI -monitor INR, currently 1.4 elevated troponin likely due to renal insufficiency and fluid overload-denies any chest pain- no acute ST-T changes on EKG. CKD, stage III: stable. -avoid further nephrotoxins -monitor BMP while on diuretic Hypothyroidism: chronic -continue patient's Synthroid CAD s/p stents: chronic -hold patient's aspirin while on Lovenox -hold patient's Coreg and lisinopril with low-normal BP's. DVT Prophylaxis: on Lovenox GI Prophylaxis: on Protonix Lydia Schmitz MD May 17, 2016 11:26
--- NOTE | 2016-05-17 16:00 | EKG ---
Date Performed: 05/16/2016 Time Performed: 12:31:54 PTAGE: 45 years EKG: Sinus rhythm Right axis deviation Low limb lead voltage Poor R wave progression, cannot exclude anteroseptal CT N onspecific ST-T wave changes Compared to prior tracing no significant change ABNORMAL ECG PREVIOUS TRACING : 05/11/2016 08.30 DOCTOR: Sudeep Menchaca Interpretating Date/Time 05/17/2016 15:58:51
--- NOTE | 2016-05-17 17:18 | PD.CONS ---
HPI History of Present Illness This is a 45 year old female with hepatitis C Ab+ but no active genotype or viral load, recent bilateral lower lobe pulmonary embolism, COPD, coronary artery disease with multiple stents, ischemic cardiomyopathy with EF 15%, and Type II DM, who came to the ER for evaluation of shortness of breath. The patient was just hospitalized from 05/11-05/14 for shortness of breath with COPD exacerbation, liver cirrhosis evaluated by GI, not a candidate for liver transplant due to severe ischemic cardiomyopathy, and DEL on CKD. Upon discharge 2 days ago 05/14, the patient felt very well, denied any shortness of breath, abdominal swelling or leg swelling. The patient reports she started to notice swelling of her abdomen and legs late last night 05/15. She then noticed worsening shortness of breath, at rest and with exertion, associated with orthopnea, and complains of a "fullness" in the chest and abdomen but denies any specific chest pains. She reports a minimal nonproductive cough. Denies any fevers but had some chills last night. She reports compliance with medications and low sodium diet. She also reports multiple episodes of nausea and vomiting last night, unable to keep down any food. Also reports diffuse abdominal pain and distention. She was given Lasix but due to low BP she has been unable to continue this. She states that she was taking her prescribed medications after she left here. (Cate Langston) [facility] Past Medical History Bilateral Lower lobe PE in March, Hypertension Insulin Dependent Diabetes CADmultiple cardiac stents Hyperlipidemia CHF Last EF was 15-20% 03/31/16 status post AICD. COPD Hepatitis C, never treated History of DVT Hypothyroidism Liver cirrhosis CKD stage III Past Surgical History AICD placement, Dec 2014, in [place] Cardiac stents and angiograms (last stent placed at age 32) C-sections x3 Tubal ligation Cholecystectomy (Cate Langston) Coded Allergies: No Known Allergies (Unverified , 05/11/16) Medications Oxycodone (Oxycodone HCl) 5 Mg Tab 5 Mg PO Q4HR PRN Omeprazole 40 Mg Cap 40 Mg PO DAILY Lovenox Inj (Enoxaparin Sodium) 60 Mg/0.6 Ml Syr 60 Mg SQ BID Vitamin B-1 (Thiamine HCl) 100 Mg Tab 100 Mg PO DAILY 30 Days Lactulose Liq (Lactulose) 10 Gm/15 Ml Soln 30 Ml PO DAILY 30 Days Coreg (Carvedilol) 3.125 Mg Tab 3.125 Mg PO Q12HR 30 Days Lantus Inj (Insulin Glargine) 1,000 Unit/10 Ml Vial 15 Units SQ HS 30 Days Furosemide 20 Mg Tab 20 Mg PO DAILY Levothyroxine (Levothyroxine Sodium) 50 Mcg Tab 50 Mcg PO DAILY Spironolactone 25 Mg Tab 25 Mg PO DAILY Warfarin 4 Mg Tab 4 Mg PO DAILY Lisinopril 5 Mg Tab 2.5 Mg PO DAILY Aspirin 81 Mg Tabdr 81 Mg PO DAILY 30 Days Wait until you are off of Lovenox injections to start your aspirin. Family History Maternal family with heart disease and diabetes Paternal family with heart disease Social History Smoked tobacco 1 PPD, but now quit 1 week ago Denies any alcohol use Denies any current illicit drug use Meth IV use many years ago (Cate Langston) Review of Systems Constitutional: COMPLAINS OF: Weight gain, DENIES: Fever, Chills Respiratory: COMPLAINS OF: Shortness of breath Cardiovascular: COMPLAINS OF: Lower Extremity Edema Gastrointestinal: COMPLAINS OF: Swelling of Abdomen, DENIES: Constipation, Diarrhea, Nausea, Vomiting Genitourinary: DENIES: Hematuria, Dysuria Musculoskeletal: COMPLAINS OF: Joint Swelling Neurologic: DENIES: Abnormal gait Psychiatric: DENIES: Confusion (Cate Langston) GI Exam Vitals I&O Vital Signs Date Time Temp Pulse Resp B/P Pulse Ox O2 Delivery O2 Flow Rate FiO2 05/17/16 12:00 98.5 82 18 95/62 92 05/17/16 09:00 Room Air 05/17/16 08:00 97.9 91 18 98/78 90 05/17/16 07:52 88 05/17/16 04:53 98.2 74 21 108/58 97 05/17/16 00:00 98.4 79 18 110/69 98 05/16/16 22:30 Room Air 05/16/16 20:00 98.6 73 20 108/65 98 05/16/16 18:18 97.3 81 18 107/64 100 I/O 05/16/16 05/16/16 05/16/16 05/17/16 05/17/16 05/17/16 07:00 15:00 23:00 07:00 15:00 23:00 Intake Total 120 ml 960 ml Output Total 350 ml Balance -230 ml 960 ml Intake Oral 120 ml 960 ml Output Urine Total 350 ml # Voids 1 2 # Bowel Movements 1 Imaging Last Impressions Chest X-Ray 05/16/16 1230 Signed Impressions: Service Date/Time: Monday, May 16, 2016 12:57 - CONCLUSION: Stable mild cardiomegaly without evidence of recurrent congestive heart failure. The lungs are clear.. Anjana Paez MD Abdomen/Pelvis CT 05/16/16 0000 Signed Impressions: Service Date/Time: Monday, May 16, 2016 14:31 - CONCLUSION: Significantly abnormal exam with new onset ascites and diffuse anasarca. Etiology of this is unknown. No clear evidence of inflammatory site within the abdomen or pelvis. Anjana Paez MD Abdomen Ultrasound 05/16/16 0000 Signed Impressions: Service Date/Time: Monday, May 16, 2016 21:27 - CONCLUSION: 1. Mild ascites insufficient for paracentesis. Jovi Benitez MD Laboratory Test 05/16/16 05/17/16 23:39 04:25 Lactic Acid Level 2.1 mmol/L Sodium Level 131 MEQ/L Potassium Level 4.0 MEQ/L Chloride Level 94 MEQ/L Carbon Dioxide Level 29.7 MEQ/L Anion Gap 7 MEQ/L Blood Urea Nitrogen 15 MG/DL Creatinine 1.51 MG/DL Estimat Glomerular Filtration 37 ML/MIN Rate Random Glucose 121 MG/DL Calcium Level 8.4 MG/DL Date/Time Procedure Status Source Growth 05/16/16 14:20 Aerobic Blood Culture - Preliminary Resulted Blood Peripheral NO GROWTH IN 1 DAY 05/16/16 14:20 Anaerobic Blood Culture - Preliminary Resulted Blood Peripheral NO GROWTH IN 1 DAY Physical Examination HEENT: Pupils round and reactive to light; normocephalic; atraumatic; no jaundice. Throat is clear. NECK: Neck is supple, no JVD, no lymphadenopathy. CHEST: CTA CARDIAC: Regular ABDOMEN: +Bs, soft, distended, nontender EXTREMITIES: Bilateral pedal edema. SKIN: Normal; no rash; no jaundice. [employer]: No focal deficits; alert and oriented times three. (Cate Langston) Assessment and Plan Plan ASSESSMENT: - Ascites/Anasarca/Elevated LFTs. Pt with positive hepatitis C antibody but minimal viral load and undetectable genotype on recent labs. Pt presented back to the ED at [facility] on 05/16 after being discharged on 05/14 with complaints of worsening abdominal distension, LE and SOB. CT Abd/pelvis (05/16) --> Significantly abnormal exam with new onset ascites and diffuse anasarca. Etiology of this is unknown. No clear evidence of inflammatory site within the abdomen or pelvis. Pt noted to have a significantly elevated BNP at admission of 2127. Labs at admission indicate improvement in her transaminases compared to 2 days prior to admission. Her Tbili was slightly more elevated at 1.1 but AlkPhos remained WNL. Pt with known hx of cardiomyopathy her EF was 15-20 % on 03/31/16 s/p AICD. Pt was given a dose of Lasix IV in 05/16 but due to her BP being low this has been unable to be continued. Abd US (05/16) --> Mild ascites, insufficient for paracentesis. This ascites and anasarca is likely cardiac in nature. - Hepatitis C Ab +, minimal viral load and undetectable genotype. - Recent bilateral PE. Pt is on Lovenox 60mg sq bid. Management per attending. - Acute on chronic renal disease. Labs indicating renal function acutely worse at admission, management per attending. - Elevated Lactic Acid. - CHF/CMP, CAD, DM per primary PLAN: - Diagnostic paracentesis with fluid analysis and SAAG analysis - Pts BP unable to tolerate diuretics at this time. - Repeat CMP, CBC and PT/INR in AM - Add Ensure with each meal - Supportive care - Further recs as the case develops - The pt was seen and examined by myself and Dr. Melendez, this note was written on her behalf. (Cate Langston) Physician Comments seen , examined agree with above (Beulah Melendez MD) Cate Langston May 17, 2016 17:18 Beulah Melendez MD May 17, 2016 17:46
[2016-05-18] VITALS: BP 114/81; PULSE 85; RESP 18; TEMP 98.1; O2SAT 100
[2016-05-18 04:00] VITALS: BP 112/66; PULSE 86; RESP 18; TEMP 98.1; O2SAT 96
[2016-05-18] MEDS: LEVOTHYROXINE SODIUM 50 MCG TAB PO SCH (04:43)
[2016-05-18] MEDS: INSULIN ASPART SUPPLEMENTAL SCALE SQ SCH ×4 (05:53→21:00)
[2016-05-18 08:00] VITALS: BP 110/66; PULSE 83; PULSE 85; RESP 18; TEMP 98; O2SAT 83
[2016-05-18] MEDS: THIAMINE HCL 100 MG TAB PO SCH (08:34)
[2016-05-18] MEDS: PANTOPRAZOLE SOD 40 MG DELAYED RELEASE TAB PO SCH (08:34)
[2016-05-18] MEDS: LACTULOSE SYRUP 20 GM/30 ML CUP PO SCH (08:34)
[2016-05-18] MEDS: ENOXAPARIN SODIUM 60 MG/0.6 ML SYRINGE SQ SCH ×2 (08:34→21:26)
[2016-05-18] MEDS: FUROSEMIDE 40 MG/4 ML VIAL IV PUSH SCH (08:34)
[2016-05-18 12:00] VITALS: BP 111/55; PULSE 85; RESP 22; TEMP 97.4; O2SAT 96
--- NOTE | 2016-05-18 12:08 | HHI.PR ---
Subjective Remarks resting comfortably with no distress. sob seems to be improving. no other complaints. Objective Vitals Vital Signs Date Time Temp Pulse Resp B/P Pulse Ox O2 Delivery O2 Flow Rate FiO2 05/18/16 08:00 Room Air 05/18/16 08:00 98.0 83 18 110/66 83 05/18/16 08:00 85 05/18/16 04:00 98.1 86 18 112/66 96 05/18/16 00:00 98.1 85 18 114/81 100 05/17/16 20:00 97.1 86 18 115/74 95 05/17/16 20:00 85 05/17/16 19:41 Room Air 05/17/16 16:00 97.5 95 18 106/66 98 I/O 05/17/16 05/17/16 05/17/16 05/18/16 05/18/16 05/18/16 07:00 15:00 23:00 07:00 15:00 23:00 Intake Total 960 ml 720 ml 240 ml 240 ml Balance 960 ml 720 ml 240 ml 240 ml Intake Oral 960 ml 720 ml 240 ml 240 ml # Voids 2 4 1 1 # Bowel Movements 1 0 1 Result Diagram: 05/16/16 1300 05/17/16 0425 Imaging Last Impressions Chest X-Ray 05/16/16 1230 Signed Impressions: Service Date/Time: Monday, May 16, 2016 12:57 - CONCLUSION: Stable mild cardiomegaly without evidence of recurrent congestive heart failure. The lungs are clear.. Anjana Paez MD Abdomen/Pelvis CT 05/16/16 0000 Signed Impressions: Service Date/Time: Monday, May 16, 2016 14:31 - CONCLUSION: Significantly abnormal exam with new onset ascites and diffuse anasarca. Etiology of this is unknown. No clear evidence of inflammatory site within the abdomen or pelvis. Anjana Paez MD Abdomen Ultrasound 05/16/16 0000 Signed Impressions: Service Date/Time: Monday, May 16, 2016 21:27 - CONCLUSION: 1. Mild ascites insufficient for paracentesis. Jovi Benitez MD Objective Remarks GENERAL: This is a well-nourished, well-developed patient, in no apparent distress. CARDIOVASCULAR: Regular rate and regular rhythm without murmurs, gallops, or rubs. RESPIRATORY: Clear to auscultation. Breath sounds equal bilaterally. No wheezes , rales, or rhonchi. GASTROINTESTINAL: Abdomen soft, non-tender, distended. Normal, active bowel sounds MUSCULOSKELETAL: bilateral pedal edema. NEURO: Alert & Oriented x4 to person, place, time, situation. Moves all ext x4 Procedures none Medications and IVs Current Medications Sodium Chloride 2 ml 2 ml UNSCH PRN IVF FLUSH AFTER USING IV ACCESS; Start at 12:30 Sodium Chloride 1,000 ml @ 999 mls/hr BOLUS ONCE IV Last administered on 05/16 15:39; Start 05/16/16 at 14:00; Stop 05/16/16 at 15:00; Status DC Magnesium Sulfate/ Dextrose (Magnesium Sulfate 1 Gm Premix) 100 ml @ 100 mls/ hr ONCE ONCE IV Last administered on 05/16/16 15:40; Start 05/16/16 at 14:00 ; Stop 05/16/16 at 14:59; Status DC Furosemide (Lasix Inj) 40 mg ONCE ONCE IV PUSH Last administered on 05/16/16 15:38; Start 05/16/16 at 14:30; Stop 05/16/16 at 14:31; Status DC Enoxaparin Sodium (Lovenox Inj) 60 mg BID SQ Last administered on 05/18/16 08: 34; Start 05/16/16 at 21:00 Lactulose (Lactulose Liq) 30 ml DAILY PO Last administered on 05/18/16 08:34; Start 05/17/16 at 09:00 Levothyroxine Sodium (Synthroid) 50 mcg DAILY@06 PO Last administered on 04:43; Start 05/17/16 at 06:00 Oxycodone HCl (Roxicodone) 5 mg Q4HR PRN PO PAIN SCALE 1-5 Last administered on 05/16/16 18:44; Start 05/16/16 at 16:45; Stop 05/16/16 at 22:47; Status DC Thiamine HCl (Vitamin B1) 100 mg DAILY PO Last administered on 05/18/16 08:34 ; Start 05/17/16 at 09:00 Pantoprazole Sodium (Protonix) 40 mg DAILY PO Last administered on 05/18/16 08 :34; Start 05/17/16 at 09:00 Dextrose (D50w (Vial) Inj) 25 ml UNSCH PRN IV PUSH HYPOGLYCEMIA-SEE COMMENTS; Start 05/16/16 at 16:45 Glucagon (Glucagon Inj) 1 mg UNSCH PRN OTHER HYPOGLYCEMIA-SEE COMMENTS; Start 05/16/16 at 16:45 Insulin Aspart (NovoLOG SUPPLEMENTAL SCALE) 1 ACHS SLIDING SCALE SQ Last administered on 05/17/16 21:00; Start 05/16/16 at 21:00 Furosemide (Lasix Inj) 40 mg DAILY IV PUSH Last administered on 05/18/16 08:34 ; Start 05/17/16 at 09:00 Oxycodone HCl (Roxicodone) 10 mg Q4H PRN PO PAIN 6-10 Last administered on 05/18 08:34; Start 05/16/16 at 22:45 Oxycodone HCl (Roxicodone) 5 mg Q4H PRN PO PAIN SCALE 1-5; Start 05/16/16 at 22 :47 A/P Assessment and Plan A/P Anasarca: suspect secondary to liver cirrhosis. See treatment below. -CXR images reviewed, shows cardiomegaly without evidence of recurrent CHF, lungs are clear. -CT abd/pelvis shows significantly abnormal exam with new onset ascites and diffuse anasarca. Liver Cirrhosis with Ascites, Jaundice, Elevated LFTs: seen on imaging as above -started IV Lasix 40mg daily -hold patient's spironolactone with hypotension -continue patient's lactulose -monitor Is&Os q8h -abdominal sonogram with not enough fluid for aspiration -consulted Gastroenterology Chronic Ischemic Systolic CHF with EF 15-20% on last echo 03/31/16, has AICD -on IV Lasix as above -aspirin on hold while on Lovenox -Lisinopril and Coreg on hold for hypotension -unable to have statin with elevated LFTs Nausea/Vomiting/Abdominal Pain: suspect secondary to ascites -CT abd with diffuse anasarca however no acute intra-abdominal process -Supportive treatment with pain control and antiemetics prn -Start Protonix Lactic Acidosis: Lactic acid 2.4. Suspect secondary to recent vomiting. -s/p IVF bolus in the ER Insulin Dependent Diabetes Mellitus: chronic -hold patient's Lantus 15units sq hs until tolerating oral intake -monitor Accu-cheks and cover with SSI Pulmonary Embolism: diagnosed -on Lovenox 60mg sq bid with bridge to Coumadin. -will resume coumadin today. -monitor INR. elevated troponin likely due to renal insufficiency and fluid overload-denies any chest pain- no acute ST-T changes on EKG. positive blood culture; one bottle positive for gram positive cruzito- suspect contamination- will follow. CKD, stage III: stable. -avoid further nephrotoxins -monitor BMP while on diuretic Hypothyroidism: chronic -continue patient's Synthroid CAD s/p stents: chronic -hold patient's aspirin while on Lovenox -hold patient's Coreg and lisinopril with low-normal BP's. DVT Prophylaxis: on Lovenox GI Prophylaxis: on Protonix Lydia Schmitz MD May 18, 2016 12:08
[2016-05-18 12:30] LABS: INTERNATIONAL NORMALIZED RATIO 1.7 RATIO; PROTHROMBIN TIME - PATIENT 18.7 SEC (9.8-11.6)
[2016-05-18 12:42] LABS: ALT (GPT) 151 U/L (10-53); ANION GAP 9 MEQ/L (5-15); AST (GOT) 52 U/L (15-37); BICARBONATE 27.5 MEQ/L (21.0-32.0); BLOOD UREA NITROGEN 14 MG/DL (7-18); CHLORIDE 94 MEQ/L (98-107); GLOMERULAR FILTRATION RATE 41 ML/MIN (>89); POTASSIUM 4.3 MEQ/L (3.5-5.1); SODIUM (NA) 130 MEQ/L (136-145)
[2016-05-18 12:44] LABS: ALKALINE PHOSPHATASE 84 U/L (45-117); TOTAL BILIRUBIN ADULT 1.2 MG/DL (0.2-1.0)
[2016-05-18 16:00] VITALS: BP 111/61; PULSE 94; RESP 20; TEMP 97.5; O2SAT 97
[2016-05-18] MEDS ORDERED: WARFARIN SOD 4 MG TAB PO SCH (16:00)
[2016-05-18 20:37] VITALS: BP 120/79; PULSE 91; RESP 20; TEMP 97.1; O2SAT 96
[2016-05-19 00:16] VITALS: BP 101/57; PULSE 89; RESP 20; TEMP 98.4; O2SAT 96
[2016-05-19 04:25] VITALS: BP 109/74; PULSE 114; RESP 20; TEMP 98.1; O2SAT 95
[2016-05-19] MEDS: LEVOTHYROXINE SODIUM 50 MCG TAB PO SCH (05:53)
[2016-05-19] MEDS: INSULIN ASPART SUPPLEMENTAL SCALE SQ SCH (06:54)
[2016-05-19 07:57] LABS: INTERNATIONAL NORMALIZED RATIO 1.6 RATIO
[2016-05-19 08:00] VITALS: BP 124/73; PULSE 93; RESP 20; TEMP 98; O2SAT 95
[2016-05-19] MEDS: PANTOPRAZOLE SOD 40 MG DELAYED RELEASE TAB PO SCH (08:34)
[2016-05-19] MEDS: LACTULOSE SYRUP 20 GM/30 ML CUP PO SCH (08:34)
[2016-05-19] MEDS: ENOXAPARIN SODIUM 60 MG/0.6 ML SYRINGE SQ SCH (08:34)
[2016-05-19] MEDS: THIAMINE HCL 100 MG TAB PO SCH (08:34)
[2016-05-19] MEDS: FUROSEMIDE 40 MG/4 ML VIAL IV PUSH SCH (08:34)
--- NOTE | 2016-05-19 11:31 | HHI.PR ---
Subjective Remarks resting comfortably with no distress. denies sob or pain. no new complaints. Objective Vitals Vital Signs Date Time Temp Pulse Resp B/P Pulse Ox O2 Delivery O2 Flow Rate FiO2 05/19/16 09:59 Room Air 05/19/16 08:00 98.0 93 20 124/73 95 05/19/16 04:25 98.1 114 20 109/74 95 05/19/16 00:16 98.4 89 20 101/57 96 05/18/16 20:37 97.1 91 20 120/79 96 05/18/16 20:00 Room Air 05/18/16 16:00 97.5 94 20 111/61 97 05/18/16 12:00 97.4 85 22 111/55 96 I/O 05/18/16 05/18/16 05/18/16 05/19/16 05/19/16 05/19/16 07:00 15:00 23:00 07:00 15:00 23:00 Intake Total 240 ml 960 ml 480 ml Balance 240 ml 960 ml 480 ml Intake Oral 240 ml 960 ml 480 ml # Voids 1 5 4 3 # Bowel Movements 1 2 Result Diagram: 05/16/16 1300 05/18/16 1150 Imaging Last Impressions Chest X-Ray 05/16/16 1230 Signed Impressions: Service Date/Time: Monday, May 16, 2016 12:57 - CONCLUSION: Stable mild cardiomegaly without evidence of recurrent congestive heart failure. The lungs are clear.. Anjana Paez MD Abdomen/Pelvis CT 05/16/16 0000 Signed Impressions: Service Date/Time: Monday, May 16, 2016 14:31 - CONCLUSION: Significantly abnormal exam with new onset ascites and diffuse anasarca. Etiology of this is unknown. No clear evidence of inflammatory site within the abdomen or pelvis. Anjana Paez MD Abdomen Ultrasound 05/16/16 0000 Signed Impressions: Service Date/Time: Monday, May 16, 2016 21:27 - CONCLUSION: 1. Mild ascites insufficient for paracentesis. Jovi Benitez MD Objective Remarks GENERAL: This is a well-nourished, well-developed patient, in no apparent distress. CARDIOVASCULAR: Regular rate and regular rhythm without murmurs, gallops, or rubs. RESPIRATORY: Clear to auscultation. Breath sounds equal bilaterally. No wheezes , rales, or rhonchi. GASTROINTESTINAL: Abdomen soft, non-tender, distended. Normal, active bowel sounds MUSCULOSKELETAL: bilateral pedal edema. NEURO: Alert & Oriented x4 to person, place, time, situation. Moves all ext x4 Procedures none Medications and IVs Current Medications Sodium Chloride 2 ml 2 ml UNSCH PRN IVF FLUSH AFTER USING IV ACCESS; Start at 12:30 Sodium Chloride 1,000 ml @ 999 mls/hr BOLUS ONCE IV Last administered on 05/16 15:39; Start 05/16/16 at 14:00; Stop 05/16/16 at 15:00; Status DC Magnesium Sulfate/ Dextrose (Magnesium Sulfate 1 Gm Premix) 100 ml @ 100 mls/ hr ONCE ONCE IV Last administered on 05/16/16 15:40; Start 05/16/16 at 14:00 ; Stop 05/16/16 at 14:59; Status DC Furosemide (Lasix Inj) 40 mg ONCE ONCE IV PUSH Last administered on 05/16/16 15:38; Start 05/16/16 at 14:30; Stop 05/16/16 at 14:31; Status DC Enoxaparin Sodium (Lovenox Inj) 60 mg BID SQ Last administered on 05/19/16 08: 34; Start 05/16/16 at 21:00 Lactulose (Lactulose Liq) 30 ml DAILY PO Last administered on 05/19/16 08:34; Start 05/17/16 at 09:00 Levothyroxine Sodium (Synthroid) 50 mcg DAILY@06 PO Last administered on 05:53; Start 05/17/16 at 06:00 Oxycodone HCl (Roxicodone) 5 mg Q4HR PRN PO PAIN SCALE 1-5 Last administered on 05/16/16 18:44; Start 05/16/16 at 16:45; Stop 05/16/16 at 22:47; Status DC Thiamine HCl (Vitamin B1) 100 mg DAILY PO Last administered on 05/19/16 08:34 ; Start 05/17/16 at 09:00 Pantoprazole Sodium (Protonix) 40 mg DAILY PO Last administered on 05/19/16 08 :34; Start 05/17/16 at 09:00 Dextrose (D50w (Vial) Inj) 25 ml UNSCH PRN IV PUSH HYPOGLYCEMIA-SEE COMMENTS; Start 05/16/16 at 16:45 Glucagon (Glucagon Inj) 1 mg UNSCH PRN OTHER HYPOGLYCEMIA-SEE COMMENTS; Start 05/16/16 at 16:45 Insulin Aspart (NovoLOG SUPPLEMENTAL SCALE) 1 ACHS SLIDING SCALE SQ Last administered on 05/18/16 16:59; Start 05/16/16 at 21:00 Furosemide (Lasix Inj) 40 mg DAILY IV PUSH Last administered on 05/19/16 08:34 ; Start 05/17/16 at 09:00 Oxycodone HCl (Roxicodone) 10 mg Q4H PRN PO PAIN 6-10 Last administered on 05/19 05:53; Start 05/16/16 at 22:45 Oxycodone HCl (Roxicodone) 5 mg Q4H PRN PO PAIN SCALE 1-5; Start 05/16/16 at 22 :47 Warfarin Sodium 4 mg 4 mg DAILY@16 PO Last administered on 05/18/16 16:56; Start 05/18/16 at 16:00 Pharmacy Profile Note (Coumadin Consult Pharmacy) 0 ml @ 0 mls/hr UNSCH OTHER ; Start 05/18/16 at 12:15 Warfarin Sodium (Coumadin) 2 mg ONCE PO ; Start 05/19/16 at 16:00; Stop at 21:00 A/P Assessment and Plan A/P Anasarca: suspect secondary to liver cirrhosis. See treatment below. -CXR images reviewed, shows cardiomegaly without evidence of recurrent CHF, lungs are clear. -CT abd/pelvis shows significantly abnormal exam with new onset ascites and diffuse anasarca. Liver Cirrhosis with Ascites, Jaundice, Elevated LFTs: seen on imaging as above -started on IV Lasix 40mg daily -hold patient's spironolactone with hypotension -continue patient's lactulose -abdominal sonogram with not enough fluid for aspiration -consulted Gastroenterology Chronic Ischemic Systolic CHF with EF 15-20% on last echo 03/31/16, has AICD -on Lasix as above -aspirin on hold while on Lovenox -resume Lisinopril -hold Coreg on hold due to low-normal BP's -unable to have statin with elevated LFTs Nausea/Vomiting/Abdominal Pain: suspect secondary to ascites- resolved Lactic Acidosis: Lactic acid 2.4. Suspect secondary to recent vomiting. -s/p IVF bolus in the ER Insulin Dependent Diabetes Mellitus: chronic -resume Lantus upon discharge -monitor Accu-cheks and cover with SSI Pulmonary Embolism: diagnosed -on Lovenox 60mg sq bid with bridge to Coumadin. -continue coumadin -monitor INR. elevated troponin likely due to renal insufficiency and fluid overload-denies any chest pain- no acute ST-T changes on EKG. positive blood culture;just one bottle positive for bacillus-likely contamination- CKD, stage III: stable. -avoid further nephrotoxins -monitor BMP while on diuretic Hypothyroidism: chronic -continue patient's Synthroid CAD s/p stents: chronic -hold patient's aspirin while on Lovenox -hold patient's Coreg and lisinopril with low-normal BP's. DVT Prophylaxis: on Lovenox GI Prophylaxis: on Protonix Discharge Planning dc home with f/u with pcp and GI. see med list. dc lovenox when INR > 2. ( patient has lovenox at home ). d/w the patient and GI. Lydia Schmitz MD May 19, 2016 11:31
[2016-05-19] MEDS ORDERED: ENOX60P SQ (11:33)
--- NOTE | 2016-05-19 11:33 | HHI.DCPOC ---
Discharge Care Plan Diagnosis: (1) Ascites Your Health Problems Are: Shortness of Breath Goals to Promote Your Health * To prevent worsening of your condition and complications * To maintain your health at the optimal level Directions to Meet Your Goals Take your medications as prescribed Follow your dietary instruction Follow activity as directed Keep your appointments as scheduled Take your immunizations and boosters as scheduled If your symptoms worsen call your PCP, if no PCP go to Urgent Care Center or Emergency Room Smoking is Dangerous to Your Health. Avoid second hand smoke Call the 24-hour hour crisis hotline for domestic abuse at Lydia Schmitz MD May 19, 2016 11:33
--- NOTE | 2016-05-19 11:34 | HHI.DS ---
Discharge Summary Admission Date May 16, 2016 at 16:05 Discharge Date: May 19, 2016 Admitting Diagnosis CHF, ASCITES, ANASARCA, ELECTROLYTE ABN (1) Ascites ICD Code: R18.8 Diagnosis: Principal Procedures none Brief History - From Admission 45-year-old female with history of Hepatitis C, cirrhosis, CKD stage III, Bilateral PE on Coumadin, HTN, HLD, insulin dependent diabetes, CAD s/p stents, CHF EF 15-20% [id number], s/p AICD, COPD, presents with a 1 day history of shortness of breath, abdominal distention, lower extremity edema, and nausea/ vomiting. The patient was recently hospitalized 05/11-05/14 for shortness of breath with COPD exacerbation, liver cirrhosis evaluated by GI, not a candidate for liver transplant due to severe ischemic cardiomyopathy, and DEL on CKD. Upon discharge 2 days ago 05/14, the patient felt very well, denied any shortness of breath, abdominal swelling or leg swelling. The patient reports she started to notice swelling of her abdomen and legs late last night 05/15. She then noticed worsening shortness of breath, at rest and with exertion, associated with orthopnea, and complains of a "fullness" in the chest and abdomen but denies any specific chest pains. She reports a minimal nonproductive cough. Denies any fevers but had some chills last night. She reports compliance with medications and low sodium diet. She also reports multiple episodes of nausea and vomiting last night, unable to keep down any food. Also reports diffuse abdominal pain and distention. Her friend also noticed her to appear more jaundiced and urged her to come to the ER. She has been unable to sleep because of feeling so uncomfortable. 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 CBC/BMP: 05/16/16 1300 05/18/16 1150 Significant Findings Laboratory Tests Test 05/16/16 05/16/16 05/16/16 05/17/16 13:00 14:30 23:39 04:25 Hemoglobin 10.2 GM/DL (11.6-15.3) Hematocrit 31.7 % (35.0-46.0) Mean Corpuscular Volume 76.8 FL (80.0-100.0) Mean Corpuscular Hemoglobin 24.8 PG (27.0-34.0) Red Cell Distribution Width 18.1 % (11.6-17.2) Monocytes (%) (Auto) 10.0 % (0.0-8.0) Prothrombin Time 16.1 SEC (9.8-11.6) Activated Partial 33.4 SEC Thromboplast Time (24.3-30.1) Sodium Level 129 MEQ/L 131 MEQ/L (136-145) (136-145) Chloride Level 95 MEQ/L 94 MEQ/L (98-107) (98-107) Creatinine 1.62 MG/DL 1.51 MG/DL (0.50-1.00) (0.50-1.00) Estimat Glomerular Filtration 34 ML/MIN (>89) 37 ML/MIN (>89) Rate Random Glucose 151 MG/DL 121 MG/DL (74-106) (74-106) Lactic Acid Level 2.4 mmol/L 2.1 mmol/L (0.4-2.0) (0.4-2.0) Magnesium Level 1.4 MG/DL (1.5-2.5) Total Bilirubin 1.1 MG/DL (0.2-1.0) Aspartate Amino Transf 95 U/L (15-37) (AST/SGOT) Alanine Aminotransferase 237 U/L (10-53) (ALT/SGPT) Troponin I 0.16 NG/ML (0.02-0.05) B-Type Natriuretic Peptide 2127 PG/ML (0-100) Albumin 2.9 GM/DL (3.4-5.0) Urine Mucus FEW /lpf (OCC) Urine Opiates Screen POS (NEG) Calcium Level 8.4 MG/DL (8.5-10.1) Test 05/18/16 05/19/16 11:50 06:16 Prothrombin Time 18.7 SEC 18.0 SEC (9.8-11.6) (9.8-11.6) Sodium Level 130 MEQ/L (136-145) Chloride Level 94 MEQ/L (98-107) Creatinine 1.37 MG/DL (0.50-1.00) Estimat Glomerular Filtration 41 ML/MIN (>89) Rate Random Glucose 163 MG/DL (74-106) Total Bilirubin 1.2 MG/DL (0.2-1.0) Aspartate Amino Transf 52 U/L (15-37) (AST/SGOT) Alanine Aminotransferase 151 U/L (10-53) (ALT/SGPT) Albumin 3.1 GM/DL (3.4-5.0) Imaging Last Impressions Chest X-Ray 05/16/16 1230 Signed Impressions: Service Date/Time: Monday, May 16, 2016 12:57 - CONCLUSION: Stable mild cardiomegaly without evidence of recurrent congestive heart failure. The lungs are clear.. Anjana Paez MD Abdomen/Pelvis CT 05/16/16 0000 Signed Impressions: Service Date/Time: Monday, May 16, 2016 14:31 - CONCLUSION: Significantly abnormal exam with new onset ascites and diffuse anasarca. Etiology of this is unknown. No clear evidence of inflammatory site within the abdomen or pelvis. Anjana Paez MD Abdomen Ultrasound 05/16/16 0000 Signed Impressions: Service Date/Time: Monday, May 16, 2016 21:27 - CONCLUSION: 1. Mild ascites insufficient for paracentesis. Jovi Benitez MD PE at Discharge GENERAL: This is a well-nourished, well-developed patient, in no apparent distress. CARDIOVASCULAR: Regular rate and regular rhythm without murmurs, gallops, or rubs. RESPIRATORY: Clear to auscultation. Breath sounds equal bilaterally. No wheezes , rales, or rhonchi. GASTROINTESTINAL: Abdomen soft, non-tender, distended. Normal, active bowel sounds MUSCULOSKELETAL: bilateral pedal edema. NEURO: Alert & Oriented x4 to person, place, time, situation. Moves all ext x4 Hospital Course Anasarca: suspect secondary to liver cirrhosis. See treatment below. -CXR images reviewed, shows cardiomegaly without evidence of recurrent CHF, lungs are clear. -CT abd/pelvis shows significantly abnormal exam with new onset ascites and diffuse anasarca. Liver Cirrhosis with Ascites, Jaundice, Elevated LFTs: seen on imaging as above -started on IV Lasix 40mg daily -hold patient's spironolactone with hypotension -continue patient's lactulose -abdominal sonogram with not enough fluid for aspiration -consulted Gastroenterology Chronic Ischemic Systolic CHF with EF 15-20% on last echo 03/31/16, has AICD -on Lasix as above -aspirin on hold while on Lovenox -resume Lisinopril -hold Coreg on hold due to low-normal BP's -unable to have statin with elevated LFTs Nausea/Vomiting/Abdominal Pain: suspect secondary to ascites- resolved Lactic Acidosis: Lactic acid 2.4. Suspect secondary to recent vomiting. -s/p IVF bolus in the ER Insulin Dependent Diabetes Mellitus: chronic -resume Lantus upon discharge -monitor Accu-cheks and cover with SSI Pulmonary Embolism: diagnosed -on Lovenox 60mg sq bid with bridge to Coumadin. -continue coumadin -monitor INR. elevated troponin likely due to renal insufficiency and fluid overload-denies any chest pain- no acute ST-T changes on EKG. positive blood culture;just one bottle positive for bacillus-likely contamination- CKD, stage III: stable. -avoid further nephrotoxins -monitor BMP while on diuretic Hypothyroidism: chronic -continue patient's Synthroid CAD s/p stents: chronic -hold patient's aspirin while on Lovenox -hold patient's Coreg and lisinopril with low-normal BP's. DVT Prophylaxis: on Lovenox GI Prophylaxis: on Protonix Pt Condition on Discharge: Fair Discharge Disposition: Discharge Home Discharge Time: <= 30 minutes Discharge Instructions DIET: Follow Instructions for: Heart Healthy Diet, Diabetic Diet, Low Sodium Diet Activities you can perform: Regular-No Restrictions Follow up Referrals: Gastroenterology PCP Follow-up Changed Medications: Enoxaparin Inj (Lovenox Inj) 60 Mg/0.6 Ml Syr 60 MG SQ BID stop Lovenox when INR >2. embolism #10 INJECTION (Medication details modified) Continued Medications: Furosemide (Furosemide) 20 Mg Tab 20 MG PO DAILY prevent fluid overload #30 Ref 0 TAB Insulin Glargine Inj (Lantus Inj) 1,000 Unit/10 Ml Vial 15 UNITS SQ HS Blood Sugar Management Days 30 Ref 0 VIAL Lactulose Liq (Lactulose Liq) 10 Gm/15 Ml Soln 30 ML PO DAILY prevent confusion Days 30 ML Levothyroxine (Levothyroxine) 50 Mcg Tab 50 MCG PO DAILY Thyroid #30 Ref 0 TAB Lisinopril (Lisinopril) 5 Mg Tab 2.5 MG PO DAILY Blood Pressure Management #30 Ref 0 TAB Omeprazole (Omeprazole) 40 Mg Cap 40 MG PO DAILY prevent ulcer #30 Ref 0 CAP Oxycodone (Oxycodone) 5 Mg Tab 5 MG PO Q4HR PRN PAIN SCALE 1 TO 10 #42 TAB Thiamine (Vitamin B-1) 100 Mg Tab 100 MG PO DAILY vitamin Days 30 TAB Warfarin (Warfarin) 4 Mg Tab 4 MG PO DAILY Blood Clot Prevention #30 Ref 0 TAB Discontinued Medications: Aspirin (Aspirin) 81 Mg Tabdr 81 MG PO DAILY Wait until you are off of Lovenox injections to start your aspirin. heart Days 30 TAB Carvedilol (Coreg) 3.125 Mg Tab 3.125 MG PO Q12HR HEART Days 30 TAB Spironolactone (Spironolactone) 25 Mg Tab 25 MG PO DAILY prevent fluid overload #30 Ref 0 TAB Lydia Schmitz MD May 19, 2016 11:34
[2016-05-19] MEDS ORDERED: WARFARIN SOD 2 MG TAB PO SCH (16:00)
[2016-06-30] MEDS ORDERED: VITA250T25 PO (10:27)
[2016-06-30] MEDS ORDERED: NITR0.4S SL (10:27)
[2016-06-30] MEDS ORDERED: SPIR25TA PO ×2 (10:27→10:46)
[2016-06-30] MEDS ORDERED: CARV3.12 PO ×2 (10:27→10:46)
[2016-06-30] MEDS ORDERED: LANTUS2P SQ ×2 (10:40→10:47)
[2016-06-30] MEDS ORDERED: LISI-519 PO (10:45)
[2016-06-30] MEDS ORDERED: WARF-20 PO (10:45)
[2016-06-30] MEDS ORDERED: FURO20TA PO (10:46)
[2016-06-30] MEDS ORDERED: LEVO50TA4 PO (10:46)
[2016-07-13] MEDS ORDERED: VANC1000P IV (09:53)
[2016-07-13] MEDS ORDERED: LANTUS2P SQ (09:53)
== END 2016-05-19 12:02 | disposition home or self-care (01) | DRG 432 ==
LOC: NEPA 12:04 → NEDA 16:05 → N04B 17:52
PROVIDERS: ADMIT Internal Medicine; ATTEND Internal Medicine
DX: K74.60 Unspecified cirrhosis of liver (principal); I26.99 Other pulmonary embolism without acute cor pulmonale; E87.2 Acidosis; I13.0 Hypertensive heart and chronic kidney disease with heart failure and stage 1 through stage 4 chronic kidney disease, or unspecified chronic kidney disease; I95.9 Hypotension, unspecified; N17.9 Acute kidney failure, unspecified; R18.8 Other ascites; I50.22 Chronic systolic (congestive) heart failure; I42.9 Cardiomyopathy, unspecified; N18.3 Chronic kidney disease, stage 3 (moderate); I50.20 Unspecified systolic (congestive) heart failure; E87.1 Hypo-osmolality and hyponatremia; E78.00 Pure hypercholesterolemia, unspecified; E11.22 Type 2 diabetes mellitus with diabetic chronic kidney disease; J44.9 Chronic obstructive pulmonary disease, unspecified; I25.10 Atherosclerotic heart disease of native coronary artery without angina pectoris; E03.9 Hypothyroidism, unspecified; E78.5 Hyperlipidemia, unspecified; I25.2 Old myocardial infarction; Z79.01 Long term (current) use of anticoagulants; Z72.0 Tobacco use; Z79.4 Long term (current) use of insulin; Z95.810 Presence of automatic (implantable) cardiac defibrillator; Z95.5 Presence of coronary angioplasty implant and graft; Z95.1 Presence of aortocoronary bypass graft; Z86.718 Personal history of other venous thrombosis and embolism; N28.9 Disorder of kidney and ureter, unspecified; B19.20 Unspecified viral hepatitis C without hepatic coma; R74.8 Abnormal levels of other serum enzymes
CPT/HCPCS: 71020; 74176; 76705; 80048; 80053; 80307; 81001; 82550; 82948; 83605; 83690; 83735; 83880; 84155; 84484; 85025; 85610; 85730; 87040; 87205; 93005; 96361; 96374; 96375; J1650; J1815; J1940; J3475; J7030

== ENCOUNTER 2016-06-13 19:14 | Inpatient (IN) | payer OTHER ==
[~2016-06-13] VITALS: Ht 154.9 cm; Wt 71.6 kg
[2016-06-13] VITALS (7 sets, daily range): BP systolic 76–134; BP diastolic 52–94; PULSE 93–141; RESP 12–28; TEMP 98.4; O2SAT 90–98
[~2016-06-13 19:14] MED LIST changes: -ASPI-110 PO; -ASPI1TAB69 PO; -CARV3.125 PO; -SPIR25TA PO
[2016-06-13] MEDS ORDERED: SODIUM CHLORIDE 0.9% FLUSH 10 ML FLUSH IVF PRN (20:00)
--- NOTE | 2016-06-13 20:09 | PD ---
HPI Chief Complaint: Respiratory Distress Time Seen by Provider: 19:45 Travel History International Travel<30 days: No Contact w/Intl Traveler<30days: No Traveled to known affect area: No History of Present Illness HPI The patient was seen and examined in the presence of the nurse. This patient complains of chest pain with some shortness of breath. Duration 2 days. Severity is moderate to severe. Chest pain described as a pressure and aching in the sternum. No pleuritic pain. No alleviating factors, she denies fever. She has had a new cough for 2 days. Sometimes bringing up phlegm other times dry. She tried her nebulizer at home which didn't help much. She did have some nausea and vomiting today. No diarrhea or abdominal pain. Patient still smokes. She takes Coumadin for history of PE. PFSH Past Medical History Hx Anticoagulant Therapy: Yes (Warfarin) Anemia: No Arthritis: No Asthma: No Autoimmune Disease: No Blood Disorders: No Bipolar Disorder: No Anxiety: No Depression: No Heart Rhythm Problems: No Cancer: No Cardiac Catheterization: Yes Cardiovascular Problems: Yes High Cholesterol: Yes Chemotherapy: No Chest Pain: Yes Congestive Heart Failure: Yes COPD: Yes Cerebrovascular Accident: No Coronary Artery Disease: Yes Diabetes: Yes Patient Takes Glucophage: Yes Diminished Hearing: No Deep Vein Thrombosis: Yes Endocrine: Yes GERD: No Genitourinary: No Headaches: No Hepatitis: No Hiatal Hernia: No Hypertension: Yes Immune Disorder: No Kidney Stones: No Musculoskeletal: No Neurologic: No Psychiatric: No Reproductive: No Respiratory: Yes Migraines: No Myocardial Infarction: Yes (2003) Pancreatitis: No Radiation Therapy: No Renal Failure: Yes (acute kidney failure) Schizophrenia: No Seizures: No Sickle Cell Disease: No Sleep Apnea: No Thyroid Disease: No Ulcer: No PNEUMOCCOCAL Vaccine (Year): 3 ?: Not Menopausal: Yes : 5 Para: 3 : 2 Tubal Ligation: Yes Past Surgical History Abdominal Surgery: Yes (cholecystectomy) AICD: Yes (defibrillator,medtronic,patient states unknown when was checked last.) Appendectomy: No Arteriovenous Shunt: No Cardiac Surgery: Yes (aicd, cardiac stent) Section: Yes (X 3) Cholecystectomy: Yes Coronary Artery Bypass Graft: No Coronary Stent: Yes (LAD) Ear Surgery: No Endocrine Surgery: No Eye Surgery: No Genitourinary Surgery: No Gynecologic Surgery: Yes ( section) Insulin Pump: No Joint Replacement: No Oral Surgery: No Pacemaker: No Thoracic Surgery: No Tonsillectomy: No Other Surgery: Yes (abdominal,aicd,appendectomy,cardiac surg,, cholecystectomy,stent,) Social History Alcohol Use: No Tobacco Use: No (QUIT 06/01/16) Substance Use: Yes (years ago) Allergies-Medications (Allergen,Severity, Reaction): Coded Allergies: No Known Allergies (Unverified , 06/13/16) Reported Meds & Prescriptions Reported Meds & Active Scripts Active Lovenox Inj (Enoxaparin Sodium) 60 Mg/0.6 Ml Syr 60 Mg SQ BID stop Lovenox when INR >2. Oxycodone (Oxycodone HCl) 5 Mg Tab 5 Mg PO Q4HR PRN Omeprazole 40 Mg Cap 40 Mg PO DAILY Vitamin B-1 (Thiamine HCl) 100 Mg Tab 100 Mg PO DAILY 30 Days Lactulose Liq (Lactulose) 10 Gm/15 Ml Soln 30 Ml PO DAILY 30 Days Lantus Inj (Insulin Glargine) 1,000 Unit/10 Ml Vial 15 Units SQ HS 30 Days Furosemide 20 Mg Tab 20 Mg PO DAILY Levothyroxine (Levothyroxine Sodium) 50 Mcg Tab 50 Mcg PO DAILY Warfarin 4 Mg Tab 4 Mg PO DAILY Lisinopril 5 Mg Tab 2.5 Mg PO DAILY Review of Systems General / Constitutional: No: Fever Eyes: No: Visual changes HENT: Positive: Congestion, No: Headaches Cardiovascular: Positive: Chest Pain or Discomfort, Tachycardia Respiratory: Positive: Cough, Shortness of Breath Gastrointestinal: Positive: Nausea, Vomiting, No: Abdominal Pain Genitourinary: No: Dysuria Musculoskeletal: No: Pain Skin: Positive Change in Pigmentation, No Rash Neurologic: No: Weakness Psychiatric: No: Depression Endocrine: No: Polydipsia Hematologic/Lymphatic: No: Easy Bruising Physical Exam Narrative GENERAL: Well-nourished, well-developed patient with chest pain and shortness of breath. SKIN: Focused skin assessment reveals no rash and nodules. Skin is Warm and dry. She is somewhat jaundiced HEAD: Atraumatic. Normocephalic. EYES: Pupils equal and round. Positive scleral icterus. No injection or drainage. ENT: No nasal bleeding or discharge. Mucous membranes pink and moist. NECK: Trachea midline. No JVD. CARDIOVASCULAR: Regular rate and rhythm. No murmur appreciated. Tachycardic at 120 RESPIRATORY: Positive accessory muscle use. Clear to auscultation. Breath sounds equal bilaterally. I don't hear any wheezing or crackles GASTROINTESTINAL: Abdomen soft, non-tender, nondistended. Hepatic and splenic margins not palpable. MUSCULOSKELETAL: No obvious deformities. No clubbing. No cyanosis. Trace edema in the feet and ankles which is symmetric. NEUROLOGICAL: Awake and alert. No obvious cranial nerve deficits. Motor grossly within normal limits. Normal speech. PSYCHIATRIC: Appropriate mood and affect; insight and judgment normal. Data Data Last Documented VS Vital Signs Date Time Temp Pulse Resp B/P Pulse Ox O2 Delivery O2 Flow Rate FiO2 06/13/16 20:02 110 25 123/80 96 Room Air 06/13/16 20:01 2 06/13/16 19:17 98.4 Orders Complete Blood Count With Diff (06/13/16 19:58) Comprehensive Metabolic Panel (06/13/16 19:58) B-Type Natriuretic Peptide (06/13/16 19:58) Prothrombin Time / Inr (Pt) (06/13/16 19:58) Ckmb (Isoenzyme) Profile (06/13/16 19:58) Troponin I (06/13/16 19:58) Iv Access Insert/Monitor (06/13/16 19:58) Ecg Monitoring (06/13/16 19:58) Oximetry (06/13/16 19:58) Oxygen Administration (06/13/16 19:58) Chest, Single Ap (06/13/16 19:58) Sodium Chloride 0.9% Flush (Ns Flush) (06/13/16 20:00) Ondansetron Inj (Zofran Inj) (06/13/16 20:30) Aspirin Chew (Aspirin Chew) (06/13/16 20:30) Piperacil-Tazo 4.5 Gm Premix (Zosyn 4.5 (06/13/16 20:30) Admit Order (Ed Use Only) (06/13/16 22:04) Labs Laboratory Tests Test 06/13/16 20:05 White Blood Count 10.3 TH/MM3 Red Blood Count 5.01 MIL/MM3 Hemoglobin 11.6 GM/DL Hematocrit 37.4 % Mean Corpuscular Volume 74.6 FL Mean Corpuscular Hemoglobin 23.1 PG Mean Corpuscular Hemoglobin 31.0 % Concent Red Cell Distribution Width 19.2 % Platelet Count 308 TH/MM3 Mean Platelet Volume 7.7 FL Neutrophils (%) (Auto) 94.0 % Lymphocytes (%) (Auto) 4.0 % Monocytes (%) (Auto) 1.0 % Eosinophils (%) (Auto) 0.1 % Basophils (%) (Auto) 0.9 % Neutrophils # (Auto) 9.7 TH/MM3 Lymphocytes # (Auto) 0.4 TH/MM3 Monocytes # (Auto) 0.1 TH/MM3 Eosinophils # (Auto) 0.0 TH/MM3 Basophils # (Auto) 0.1 TH/MM3 CBC Comment AUTO DIFF Differential Total Cells 100 Counted Neutrophils % (Manual) 85 % Band Neutrophils % 10 % Lymphocytes % 4 % Neutrophils # (Manual) 9.9 TH/MM3 Metamyelocytes 1 % Nucleated Red Blood Cells 1 /100 WBC Differential Comment FINAL DIFF MANUAL Platelet Estimate NORMAL Platelet Morphology Comment NORMAL Tear Drop Cells 1+ Prothrombin Time 32.5 SEC Prothromb Time International 2.8 RATIO Ratio Sodium Level 135 MEQ/L Potassium Level 4.4 MEQ/L Chloride Level 96 MEQ/L Carbon Dioxide Level 19.0 MEQ/L Anion Gap 20 MEQ/L Blood Urea Nitrogen 10 MG/DL Creatinine 1.80 MG/DL Estimat Glomerular Filtration 30 ML/MIN Rate Random Glucose 183 MG/DL Calcium Level 8.6 MG/DL Total Bilirubin 3.3 MG/DL Aspartate Amino Transf 36 U/L (AST/SGOT) Alanine Aminotransferase 20 U/L (ALT/SGPT) Alkaline Phosphatase 91 U/L Total Creatine Kinase 56 U/L Troponin I 0.13 NG/ML B-Type Natriuretic Peptide 2326 PG/ML Total Protein 7.8 GM/DL Albumin 3.1 GM/DL [facility] Medical Decision Making Medical Screen Exam Complete: Yes Emergency Medical Condition: Yes Medical Record Reviewed: Yes Differential Diagnosis Differential diagnosis includes NC, angina, pericarditis, pleurisy, GERD, anxiety. Narrative Course I have reviewed the patient's electronic medical record. Patient was admitted May 16, 2016 with liver failure and jaundice and ascites and CHF IV placed I gave her IV Zofran CBC shows normal white count but does have 10% bands Metabolic profile shows renal insufficiency which is chronic at 1.8 LFTs are reviewed CK is normal Troponin is elevated at 0.13 is better than the last time and likely due to her chronic renal disease and I don't think this is due to ACS INR on Coumadin is 2.8 BNP 2300 which is the same as it was before I reviewed her chest x-ray which shows a new compared to last time right mid lung consolidation I gave her dose of IV Zosyn Patient will require inpatient hospital care for IV antibiotics and oxygen support She has very little reserve and has a host of severe chronic diseases which put her at high risk and not a good candidate for outpatient therapy at this time I reviewed with the hospitalist who is at bedside now admitting I reviewed her EKG which shows sinus tachycardia at [address] elevation I reviewed her chest x-ray Extended cardiac monitoring reveals sinus tachycardia without ectopy Diagnosis Primary Impression: Pneumonia Qualified Code: J18.1 - Pneumonia of right middle lobe due to infectious organism Additional Impression: COPD (chronic obstructive pulmonary disease) Qualified Code: J44.9 - Chronic obstructive pulmonary disease, unspecified COPD type Admitting Information Admitting Physician Requests: Admit Carlos Barreto MD Jun 13, 2016 20:09
--- NOTE | 2016-06-13 20:27 | RADRPT ---
EXAM DATE/TIME: 06/13/2016 20:10 [facility] COMPARISON: CHEST SINGLE AP, May 11, 2016, 9:13. INDICATIONS : Short of Breath MEDICAL HISTORY : Hypertension. renal failure, diabetes, deep vein thrombosis SURGICAL HISTORY : Pacemaker. Cholecystectomy. Tubal ligation. section ENCOUNTER: Initial ACUITY: 2 days PAIN SCORE: 6/10 LOCATION: Bilateral chest FINDINGS: There is a new ill-defined infiltrate in the right midlung which appears to be superior to the minor fissure. No evidence of pleural effusion. Left lung is clear. The heart is enlarged, similar in si ze and appearance to prior examination. CONCLUSION: New partially consolidative infiltrate in the right midlung. Alan Burton MD on June 13, 2016 at 20:24 Board Certified Radiologist. This report was verified electronically.
[2016-06-13 20:30] LABS: AUTOMATED NEUTROPHIL # 9.7 TH/MM3 (1.8-7.7); BASOPHIL # 0.1 TH/MM3 (0-0.2); BASOPHIL % 0.9 % (0.0-2.0); EOSINOPHIL % 0.1 % (0.0-4.0); HEMATOCRIT 37.4 % (35.0-46.0); LYMPHOCYTE # 0.4 TH/MM3 (1.0-4.8); MEAN CELL VOLUME 74.6 FL (80.0-100.0); MEAN CORPUSCULAR HEMOGLOBIN 23.1 PG (27.0-34.0); PLATELET COUNT 308 TH/MM3 (150-450); RED BLOOD COUNT 5.01 MIL/MM3 (4.00-5.30); RED CELL DISTRIBUTION WIDTH 19.2 % (11.6-17.2); WHITE BLOOD COUNT 10.3 TH/MM3 (4.0-11.0)
[2016-06-13] MEDS ORDERED: PIPERACIL-TAZO 4.5 GM PREMIX 100 ML IV ONE (20:30)
[2016-06-13] MEDS ORDERED: ONDANSETRON HCL 4 MG/2 ML VIAL IV ONE (20:30)
[2016-06-13] MEDS ORDERED: ASPIRIN 81 MG CHEW TAB CHEW ONE (20:30)
[2016-06-13 20:34] LABS: HEMO FLAGS AUTO DIFF
[2016-06-13 20:37] LABS: INTERNATIONAL NORMALIZED RATIO 2.8 RATIO; PROTHROMBIN TIME - PATIENT 32.5 SEC (9.8-11.6)
[2016-06-13 20:45] LABS: ANION GAP 20 MEQ/L (5-15); AST (GOT) 36 U/L (15-37); BLOOD UREA NITROGEN 10 MG/DL (7-18); CHLORIDE 96 MEQ/L (98-107); GLOMERULAR FILTRATION RATE 30 ML/MIN (>89); POTASSIUM 4.4 MEQ/L (3.5-5.1); SODIUM (NA) 135 MEQ/L (136-145)
[2016-06-13 20:50] LABS: ALKALINE PHOSPHATASE 91 U/L (45-117); ALT (GPT) 20 U/L (10-53); TOTAL BILIRUBIN ADULT 3.3 MG/DL (0.2-1.0)
[2016-06-13 20:59] LABS: CREATINE KINASE 56 U/L (26-192)
[2016-06-13 21:03] LABS: BANDS 10 % (0-6); CORRECTED NUCLEATED RBC 1 /100 WBC (0-0); METAMYELOCYTES 1 % (0-1); NEUTROPHIL # MANUAL DIFF 9.9 TH/MM3 (1.8-7.7); POLYS (SEG NEUTROPHILS) 85 % (16-70); WBC DIFF SAMPLE 100
[2016-06-13 21:15] LABS: PLATELET ESTIMATE SMEAR NORMAL (NORMAL); PLATELET MORPHOLOGY NORMAL (NORMAL); TEARDROP RBCS 1+ (NORMAL)
[2016-06-13 21:16] LABS: SCAN/DIFF FINAL DIFF MANUAL
[2016-06-13] MEDS ORDERED: ASPI81TA11 PO (22:27)
[2016-06-13] MEDS ORDERED: METF1000 PO (22:27)
[2016-06-13] MEDS ORDERED: LANTUS2P SQ (22:27)
[2016-06-13] MEDS ORDERED: ONDANSETRON HCL 4 MG/2 ML VIAL IVP PRN (22:30)
[2016-06-13] MEDS ORDERED: ACETAMINOPHEN 325 MG TAB PO PRN (22:30)
[2016-06-13] MEDS ORDERED: NALOXONE HCL 0.4 MG/ML AMP IV PRN (22:30)
[2016-06-13] MEDS ORDERED: SODIUM CHLORIDE 0.9% FLUSH 10 ML FLUSH IV FLUSH PRN (22:30)
[2016-06-13] MEDS ORDERED: DEXTROSE 50% IN WATER 50 ML VIAL(D50) IV PUSH PRN (22:45)
[2016-06-13] MEDS ORDERED: GLUCAGON 1 MG/ML VIAL OTHER PRN (22:45)
[2016-06-13] MEDS ORDERED: MORPHINE SULFATE 4 MG/ML INJ IV PUSH ONE (22:45)
[2016-06-13] MEDS ORDERED: PILL SPLITTER OTHER PRN (23:00)
[2016-06-13] MEDS ORDERED: SODIUM CHLORID 0.9% 500 ML INJ 500 ML IV ONE (23:00)
[2016-06-13] MEDS: INSULIN DETEMIR 100 UNITS/ML VIAL SQ SCH (23:00)
[2016-06-13] MEDS ORDERED: DO NOT ADM ANY ANTICOAGULANT DRUGS OTHER PRN (23:00)
--- NOTE | 2016-06-13 23:03 | HHI.HP ---
HPI Service [facility] Primary Care Physician No Primary Care Physician Admission Diagnosis pneumonia Diagnoses: Chief Complaint: Shortness of breath, chest pain Travel History International Travel<30 Days: No Contact w/Intl Traveler <30 Da: No Traveled to Known Affected Are: No History of Present Illness 45-year-old female with a past medical history significant for CHF (last EF 15 20% in March 2016) status post AICD placement, COPD, hepatitis C, cirrhosis, CKD stage III, bilateral PEs diagnosed in March 2016 for which she is currently on Coumadin presents to the emergency department with a 2 day history of shortness of breath. The patient reports that she has been feeling "under the weather" for the past 5 days. She denies any abdominal swelling and states that the swelling in her legs is less than normal. She denies any PND or orthopnea. She states that her shortness of breath is worse when she walks however she also continues to have SOB at rest. She states she has been feeling hot and cold but has not taken her temperature. NBNB nausea and vomiting 1 day. She has a nonproductive cough. On chest x-ray she has new partially consolidative infiltrate in the right midlung. She is tachycardic on arrival to the emergency department however afebrile. She complains of bilateral lower chest pain that is reproducible with palpation. She also complains of mid back pain. Of note, patient does not follow-up with any physicians outpatient as she is currently applying for patient assistance. Review of Systems Positive for fever/chills (subjective) Denies blurry vision, otorrhea, rhinorrhea Denies sore throat, positive nonproductive cough Chest pain and shortness of breath as per history of present illness. Denies any palpitations or substernal chest pain. Positive abdominal pain Endorses nausea/vomiting, denies diarrhea/constipation Denies muscle pain/weakness No rashes Past Family Social History Past Medical History Hepatitis C Cirrhosis Chronic kidney disease Hypertension Hyperlipidemia Coronary artery disease CHF COPD IDDM CAD Past Surgical History 3 Tubal ligation Cholecystectomy Stent placement AICD placement Reported Medications Reported Meds & Active Scripts Active Omeprazole 40 Mg Cap 40 Mg PO DAILY Vitamin B-1 (Thiamine HCl) 100 Mg Tab 100 Mg PO DAILY 30 Days Lactulose Liq (Lactulose) 10 Gm/15 Ml Soln 30 Ml PO DAILY 30 Days Furosemide 20 Mg Tab 20 Mg PO DAILY Levothyroxine (Levothyroxine Sodium) 50 Mcg Tab 50 Mcg PO DAILY Warfarin 4 Mg Tab 4 Mg PO DAILY Lisinopril 5 Mg Tab 2.5 Mg PO DAILY Reported Metformin (Metformin HCl) 1,000 Mg Tab 1,000 Mg PO BIDPC With meals Aspirin EC (Aspirin) 81 Mg Tabdr 81 Mg PO DAILY Lantus Inj (Insulin Glargine) 1,000 Unit/10 Ml Vial 25 Units SQ HS Allergies: Coded Allergies: No Known Allergies (Unverified , 06/13/16) Family History Mom with leukemia, dad with CAD. Social History Patient has smoked for the past 30 years, currently smoking less than 1 pack per day. Has a remote history of IV meth use in 2008. Denies any alcohol ever. Physical Exam Vital Signs Vital Signs Date Time Temp Pulse Resp B/P Pulse Ox O2 Delivery O2 Flow Rate FiO2 06/13/16 20:02 110 25 123/80 96 Room Air 06/13/16 20:01 25 96 Nasal Cannula 2 06/13/16 19:47 126 25 96 Room Air 06/13/16 19:17 98.4 141 22 134/94 96 Room Air Physical Exam GENERAL: NAD SKIN: No rashes, ecchymoses or lesions. Cool and dry. HEAD: Atraumatic. Normocephalic. No temporal or scalp tenderness. EYES: Pupils equal round and reactive. Extraocular motions intact. No scleral icterus. No injection or drainage. ENT: Nose without bleeding, purulent drainage or septal hematoma. Throat without erythema, tonsillar hypertrophy or exudate. Uvula midline. Airway patent. NECK: Trachea midline. No JVD or lymphadenopathy. Supple, nontender, no meningeal signs. CARDIOVASCULAR: Regular rate and rhythm without murmurs, gallops, or rubs. RESPIRATORY: Clear to auscultation. Breath sounds equal bilaterally. No wheezes , rales, or rhonchi. GASTROINTESTINAL: Abdomen soft, tender to palpation. No obvious fluid wave. MUSCULOSKELETAL: Bilateral 2+ pitting edema to the knee. No calf tenderness. Negative Homans sign bilaterally. NEUROLOGICAL: Awake and alert. Cranial nerves II through XII intact. Motor and sensory grossly within normal limits. Five out of 5 muscle strength in all muscle groups. Normal speech. Laboratory Laboratory Tests Test 06/13/16 20:05 White Blood Count 10.3 Red Blood Count 5.01 Hemoglobin 11.6 Hematocrit 37.4 Mean Corpuscular Volume 74.6 Mean Corpuscular Hemoglobin 23.1 Mean Corpuscular Hemoglobin 31.0 Concent Red Cell Distribution Width 19.2 Platelet Count 308 Mean Platelet Volume 7.7 Neutrophils (%) (Auto) 94.0 Lymphocytes (%) (Auto) 4.0 Monocytes (%) (Auto) 1.0 Eosinophils (%) (Auto) 0.1 Basophils (%) (Auto) 0.9 Neutrophils # (Auto) 9.7 Lymphocytes # (Auto) 0.4 Monocytes # (Auto) 0.1 Eosinophils # (Auto) 0.0 Basophils # (Auto) 0.1 CBC Comment AUTO DIFF Differential Total Cells 100 Counted Neutrophils % (Manual) 85 Band Neutrophils % 10 Lymphocytes % 4 Neutrophils # (Manual) 9.9 Metamyelocytes 1 Nucleated Red Blood Cells 1 Differential Comment FINAL DIFF MANUAL Platelet Estimate NORMAL Platelet Morphology Comment NORMAL Tear Drop Cells 1+ Prothrombin Time 32.5 Prothromb Time International 2.8 Ratio Sodium Level 135 Potassium Level 4.4 Chloride Level 96 Carbon Dioxide Level 19.0 Anion Gap 20 Blood Urea Nitrogen 10 Creatinine 1.80 Estimat Glomerular Filtration 30 Rate Random Glucose 183 Calcium Level 8.6 Total Bilirubin 3.3 Aspartate Amino Transf 36 (AST/SGOT) Alanine Aminotransferase 20 (ALT/SGPT) Alkaline Phosphatase 91 Total Creatine Kinase 56 Troponin I 0.13 B-Type Natriuretic Peptide 2326 Total Protein 7.8 Albumin 3.1 Result Diagram: 06/13/16200406/13/162004 Assessment and Plan Problem List: (1) Pulmonary embolism ICD Code: I26.99 Status: Chronic (2) CAD (coronary artery disease) ICD Code: I25.10 Status: Chronic (3) DM (diabetes mellitus) ICD Code: E11.9 Status: Chronic (4) CHF (congestive heart failure) ICD Code: I50.9 Status: Chronic (5) Pneumonia ICD Code: J18.9 Status: Acute (6) COPD (chronic obstructive pulmonary disease) ICD Code: J44.9 Status: Chronic (7) HTN (hypertension) ICD Code: I10 Status: Chronic (8) HLD (hyperlipidemia) ICD Code: E78.5 Status: Chronic Assessment and Plan 45-year-old female with multiple comorbidities presents to the emergency department with increasing shortness of breath. 1. Pneumonia -Patient recently hospitalized with multiple medical comorbidities and new consolidation on chest x-ray and oxygen requirement, continue Zosyn renally dosed at 3.375 every 6 hours -Blood cultures and sputum culture pending 2. Bilateral pulmonary embolism -Continue home Coumadin -Patient's INR therapeutic at 2.8 3. Cirrhosis/hepatitis C -Abdominal ultrasound to rule out ascites -Continue home lactulose 4. CHF -Last echo done in March 2016 showed an EF of 1020 percent -BNP 2326, was 2127 1 month ago -Continue home furosemide -Patient with AICD in place 5. CAD -Status post stent placement -Continue aspirin -EKG showed sinus tach, no ST elevations/depressions 6. CKD -Likely source of elevated troponin -Patient with known CKD, Cr 1.8 today baseline 1.3 7. Diabetes Mellitus -Continue home Levemir -SSI 8. Hypertension -Continue home lisinopril 9. FEN -Heart healthy diet -Hep-Lock IV -Anticoagulation: Continue home warfarin Physician Certification 2 Midnight Certification Type: Admission for Inpatient Services Order for Inpatient Services The services are ordered in accordance with Medicare regulations or non- Medicare payer requirements, as applicable. In the case of services not specified as inpatient-only, they are appropriately provided as inpatient services in accordance with the 2-midnight benchmark. Estimated LOS (days): 2 2 days is the estimated time the patient will need to remain in the hospital, assuming treatment plan goals are met and no additional complications. Post-Hospital Plan: Not yet determined Problem Qualifiers (1) Pneumonia: Qualified Code: J18.1 - Pneumonia of right middle lobe due to infectious organism (2) COPD (chronic obstructive pulmonary disease): Qualified Code: J44.9 - Chronic obstructive pulmonary disease, unspecified COPD type Cate Machado MD R3 Jun 13, 2016 23:03
[2016-06-13] MEDS ORDERED: ALBUMIN HUMAN 25% 25 GM/100 ML BAGP IV ONE (23:30)
[2016-06-14] VITALS (11 sets, daily range): BP systolic 74–96; BP diastolic 49–66; PULSE 76–100; RESP 12–22; TEMP 94.4–100.6; O2SAT 93–100
--- NOTE | 2016-06-14 00:35 | RADRPT ---
EXAM DATE/TIME: 06/13/2016 23:58 [facility] COMPARISON: US ABDOMEN - LOWER LIMITED, May 16, 2016, 21:27. INDICATIONS : Abdominal pain. MEDICAL HISTORY : Myocardial infarction. Hypercholesterolemia. Chronic obstructive pulmonary disease. Congestive heart failure. Coronary artery disease. Hyperlipidemia. Hypertension. Deep vein thrombosis. . Abor tion x 2. Acute renal failure. Anticoagulant therapy, Warfarin. Diabetes. Blood transfusion. SURGICAL HISTORY : Cholecystectomy. section. Tubal ligation. Appendectomy. Coronary artery stent. Internal defi brillator. ENCOUNTER: [facility] ACUITY: 1 day PAIN SCORE: 4/10 LOCATION: Abdomen. AREA EVALUATED: Abdominal quadrants. FINDINGS: Imaging of the abdomen and pelvis was performed to evaluate for ascites for possible paracentesis. A very small volume of ascitic fluid is seen low within the midline of the pelvis as well as adjacent t o the right lobe of the liver. CONCLUSION: Very small volume ascites. Alan Lam Jr., MD on June 14, 2016 at 0:32 Board Certified Radiologist. This report was verified electronically.
[2016-06-14] MEDS ORDERED: PIPERACIL-TAZO 4.5 GM PREMIX 100 ML IV SCH (02:30)
[2016-06-14] MEDS: PIPERACIL-TAZO 3.375 GM PREMIX 50 ML IV SCH ×4 (03:01→20:26)
[2016-06-14] MEDS: LEVOTHYROXINE SODIUM 50 MCG TAB PO SCH (06:40)
[2016-06-14] MEDS: INSULIN ASPART SUPPLEMENTAL SCALE SQ SCH ×4 (06:43→20:26)
[2016-06-14] MEDS: THIAMINE HCL 100 MG TAB PO SCH (09:29)
[2016-06-14] MEDS: ASPIRIN EC 81 MG TABEC PO SCH (09:29)
[2016-06-14] MEDS: PANTOPRAZOLE SOD 40 MG DELAYED RELEASE TAB PO SCH (09:29)
[2016-06-14] MEDS: FUROSEMIDE 20 MG TAB PO SCH (09:30)
[2016-06-14] MEDS: LACTULOSE SYRUP 20 GM/30 ML CUP PO SCH (09:30)
[2016-06-14] MEDS: LISINOPRIL 5 MG TAB PO SCH (09:35)
[2016-06-14] MEDS: SODIUM CHLORIDE 0.9% FLUSH 10 ML FLUSH IV FLUSH SCH ×2 (09:35→20:26)
[2016-06-14] MEDS ORDERED: SODIUM CHLOR 0.9% 250 ML INJ 250 ML IV ONE (14:00)
--- NOTE | 2016-06-14 14:52 | EKG ---
Date Performed: 06/13/2016 Time Performed: 19:30:13 PTAGE: 45 years EKG: SINUS TACHYCARDIA POSSIBLE RIGHT VENTRICULAR HYPERTROPHY POSSIBLE ANTERIOR MYOCARDIAL INFAR CTION Rate has increased significantly since prior tracing Clinical correlation is recommended ABNORM AL ECG INTERPRETATION BASED ON A DEFAULT AGE OF 40 YEARS PREVIOUS TRACING : 05/16/2016 12.31 DOCTOR: Juan Miguel Sotomayor Interpretating Date/Time 06/14/2016 14:51:39
--- NOTE | 2016-06-14 15:17 | HHI.PR ---
Subjective Remarks f/u for PNA. patient is hypotensive SBPs in 80s now in 70s. patient stated she "feels awful." When I asked why she stated because she feels weak. Denied any SOB, CP, palpitation, lightheadedness/dizziness. Objective Vitals Vital Signs Date Time Temp Pulse Resp B/P Pulse Ox O2 Delivery O2 Flow Rate FiO2 06/14/16 12:00 97.4 77 16 74/49 100 06/14/16 11:22 83 06/14/16 09:48 95 3.00 06/14/16 08:00 Nasal Cannula 2.00 06/14/16 08:00 98.5 89 16 84/59 95 06/14/16 04:47 Nasal Cannula 3.00 06/14/16 04:00 100.6 100 18 91/54 97 06/14/16 02:41 99 17 93/51 97 Nasal Cannula 4 06/14/16 01:00 100 12 96/66 97 Nasal Cannula 4 06/13/16 23:51 98 28 93/60 90 Nasal Cannula 4 06/13/16 23:27 95 15 76/53 98 Nasal Cannula 2 06/13/16 23:23 93 12 80/52 98 Nasal Cannula 2 06/13/16 23:12 98 Nasal Cannula 2.00 06/13/16 20:02 110 25 123/80 96 Room Air 06/13/16 20:01 25 96 Nasal Cannula 2 06/13/16 19:47 126 25 96 Room Air 06/13/16 19:17 98.4 141 22 134/94 96 Room Air I/O 06/13/16 06/13/16 06/13/16 06/14/16 06/14/16 06/14/16 07:00 15:00 23:00 07:00 15:00 23:00 Intake Total 0 ml Balance 0 ml Intake Oral 0 ml # Voids 3 # Bowel Movements 4 Result Diagram: 06/13/16200406/13/162004 Objective Remarks GENERAL: in NAD CARDIOVASCULAR: Regular rate and rhythm without murmurs, gallops, or rubs. RESPIRATORY: Breath sounds equal bilaterally. No accessory muscle use. GASTROINTESTINAL: Abdomen soft, non-tender, nondistended. MUSCULOSKELETAL: No cyanosis, or edema. BACK: Nontender without obvious deformity. No CVA tenderness. Medications and IVs Current Medications Sodium Chloride (NS Flush) 2 ml UNSCH PRN IVF FLUSH AFTER USING IV ACCESS; Start 06/13/16 at 20:00; Stop 06/13/16 at 22:41; Status DC Ondansetron HCl (Zofran Inj) 4 mg ONCE ONCE IV Last administered on 06/13/16 20:34; Start 06/13/16 at 20:30; Stop 06/13/16 at 20:31; Status DC Aspirin 81 mg 81 mg ONCE ONCE CHEW Last administered on 06/13/16 20:34; Start 06/13/16 at 20:30; Stop 06/13/16 at 20:31; Status DC Piperacillin Sod/ Tazobactam Sod (Zosyn 4.5 Gm Premix) 100 ml @ 200 mls/hr ONCE ONCE IV Last administered on 06/13/16 20:38; Start 06/13/16 at 20:30; Stop 06/13/16 at 20:59; Status DC Sodium Chloride (NS Flush) 2 ml UNSCH PRN IV FLUSH FLUSH AFTER USING IV ACCESS ; Start 06/13/16 at 22:30 Sodium Chloride (NS Flush) 2 ml BID IV FLUSH Last administered on 06/14/16 09: 35; Start 06/14/16 at 09:00 Acetaminophen (Tylenol) 650 mg Q4H PRN PO TEMP > 100.4 Last administered on 06:40; Start 06/13/16 at 22:30 Ondansetron HCl (Zofran Inj) 4 mg Q6H PRN IVP NAUSEA OR VOMITING; Start at 22:30 Naloxone HCl (Narcan Inj) 0.4 mg UNSCH PRN IV SEE LABEL COMMENTS; Start at 22:30 Insulin Aspart 1 1 ACHS SLIDING SCALE SQ Last administered on 06/14/16 06:43 ; Start 06/14/16 at 07:00 Piperacillin Sod/ Tazobactam Sod (Zosyn 4.5 Gm Premix) 100 ml @ 200 mls/hr Q6H IV ; Start 06/14/16 at 02:30; Stop 06/14/16 at 02:30; Status DC Morphine Sulfate 2 mg 2 mg ONCE ONCE IV PUSH ; Start 06/13/16 at 22:45; Stop at 22:47; Status DC Piperacillin Sod/ Tazobactam Sod (Zosyn 3.375 Gm Premix) 50 ml @ 100 mls/hr Q6H IV Last administered on 06/14/16 13:51; Start 06/14/16 at 02:00 Aspirin (Ecotrin Ec) 81 mg DAILY PO Last administered on 06/14/16 09:29; Start 06/14/16 at 09:00 Furosemide (Lasix) 20 mg DAILY PO Last administered on 06/14/16 09:30; Start 06/14/16 at 09:00; Status Hold Insulin Detemir (Levemir Inj) 25 units HS SQ ; Start 06/13/16 at 23:00 Lactulose (Lactulose Liq) 30 ml DAILY PO Last administered on 06/14/16 09:30; Start 06/14/16 at 09:00 Levothyroxine Sodium (Synthroid) 50 mcg DAILY@0600 PO Last administered on 06/14 06:40; Start 06/14/16 at 06:00 Lisinopril (Prinivil) 2.5 mg DAILY PO ; Start 06/14/16 at 09:00; Status Hold Warfarin Sodium (Coumadin) 4 mg DAILY@1600 PO ; Start 06/14/16 at 16:00; Status Future Hold Pantoprazole Sodium (Protonix) 40 mg DAILY PO Last administered on 06/14/16 09 :29; Start 06/14/16 at 09:00 Thiamine HCl (Vitamin B1) 100 mg DAILY PO Last administered on 06/14/16 09:29 ; Start 06/14/16 at 09:00 Dextrose (D50w (Vial) Inj) 25 ml UNSCH PRN IV PUSH HYPOGLYCEMIA-SEE COMMENTS; Start 06/13/16 at 22:45 Glucagon (Glucagon Inj) 1 mg UNSCH PRN OTHER HYPOGLYCEMIA-SEE COMMENTS; Start 06/13/16 at 22:45 Miscellaneous (Pill Splitter) 1 ea UNSCH PRN OTHER SEE LABEL COMMENTS; Start at 23:00 Miscellaneous Information ALL NURSING DEPARTME... UNSCH PRN OTHER SEE LABEL COMMENTS; Start 06/13/16 at 23:00; Stop 06/14/16 at 22:59 Patient Medication Teaching 1 1 ONCE ONCE OTHER ; Start 06/13/16 at 16:00; Stop 06/13/16 at 22:52; Status DC Sodium Chloride (NS 500 ml Inj) 500 ml @ 0 mls/hr Q0M ONCE IV Last administered on 06/13/16 23:02; Start 06/13/16 at 23:00; Stop 06/13/16 at 23:01 ; Status DC Albumin Human 25 gm 25 gm ONCE ONCE IV Last administered on 06/14/16 00:03; Start 06/13/16 at 23:30; Stop 06/13/16 at 23:31; Status DC Pharmacy Profile Note 0 ml @ 0 mls/hr UNSCH OTHER ; Start 06/14/16 at 00:15 Sodium Chloride (NS 250 ml Inj) 250 ml @ 250 mls/hr BOLUS ONCE IV Last administered on 06/14/16 14:46; Start 06/14/16 at 14:00; Stop 06/14/16 at 14:59 ; Status DC A/P Problem List: (1) Pulmonary embolism ICD Code: I26.99 Status: Chronic (2) CAD (coronary artery disease) ICD Code: I25.10 Status: Chronic (3) DM (diabetes mellitus) ICD Code: E11.9 Status: Chronic (4) CHF (congestive heart failure) ICD Code: I50.9 Status: Chronic (5) Pneumonia ICD Code: J18.9 Status: Acute (6) COPD (chronic obstructive pulmonary disease) ICD Code: J44.9 Status: Chronic (7) HTN (hypertension) ICD Code: I10 Status: Chronic (8) HLD (hyperlipidemia) ICD Code: E78.5 Status: Chronic Assessment and Plan 45-year-old female with multiple comorbidities presents to the emergency department with increasing shortness of breath. Pneumonia -Patient recently hospitalized with multiple medical comorbidities and new consolidation on chest x-ray and oxygen requirement, continue Zosyn renally dosed at 3.375 every 6 hours -Blood cultures and sputum culture pending Bilateral pulmonary embolism -Continue home Coumadin -Patient's INR therapeutic at 2.8 Cirrhosis/hepatitis C -Abdominal ultrasound showed small amount of ascites. -Continue home lactulose CHF s/p AICD in place -Last echo done in March 2016 showed an EF of 1020 percent -BNP 2326, was 2127 1 month ago -due to low BP will hold lasix today. reconsider restarting with improvement.in BP. Hypotension -SBP in 70s now so will need to be light bolus 250 cc of NS. hold lasix and lisinopril. -monitor. CAD -Status post stent placement -Continue aspirin -EKG showed sinus tach, no ST elevations/depressions CKD -Patient with known CKD, Cr 1.8 today baseline 1.3 -will trend. -avoid nephrotoxic mildly elevated troponin -due to CKD and CHF. -continue to trend. Diabetes Mellitus -Continue home Levemir -SSI Hypertension -Continue home lisinopril DVT prophylaxis -Anticoagulation: Continue home warfarin Problem Qualifiers (1) Pneumonia: Qualified Code: J18.1 - Pneumonia of right middle lobe due to infectious organism (2) COPD (chronic obstructive pulmonary disease): Qualified Code: J44.9 - Chronic obstructive pulmonary disease, unspecified COPD type Carolina Nunez MD Jun 14, 2016 15:17
[2016-06-14 15:23] LABS: AUTOMATED NEUTROPHIL # 12.9 TH/MM3 (1.8-7.7); BASOPHIL % 0.3 % (0.0-2.0); LYMPH % 6.5 % (9.0-44.0); LYMPHOCYTE # 0.9 TH/MM3 (1.0-4.8); MEAN CELL VOLUME 73.3 FL (80.0-100.0); MONO % 2.4 % (0.0-8.0); NEUT % 90.8 % (16.0-70.0); PLATELET COUNT 141 TH/MM3 (150-450); RED BLOOD COUNT 4.51 MIL/MM3 (4.00-5.30); RED CELL DISTRIBUTION WIDTH 18.6 % (11.6-17.2); WHITE BLOOD COUNT 14.2 TH/MM3 (4.0-11.0)
[2016-06-14 15:27] LABS: HEMO FLAGS AUTO DIFF
[2016-06-14 15:57] LABS: BANDS 22 % (0-6); NEUTROPHIL # MANUAL DIFF 12.6 TH/MM3 (1.8-7.7); OVALOCYTES 1+ (NORMAL); POLYS (SEG NEUTROPHILS) 67 % (16-70); WBC DIFF SAMPLE 100
[2016-06-14 15:58] LABS: PLATELET ESTIMATE SMEAR LOW (NORMAL); PLATELET MORPHOLOGY NORMAL (NORMAL); SCAN/DIFF FINAL DIFF MANUAL
[2016-06-14] MEDS ORDERED: WARFARIN SOD 4 MG TAB PO SCH (16:00)
[2016-06-14 18:44] LABS: BICARBONATE 24.9 MEQ/L (21.0-32.0); POTASSIUM 3.1 MEQ/L (3.5-5.1)
[2016-06-14] MEDS: INSULIN DETEMIR 100 UNITS/ML VIAL SQ SCH (20:27)
[2016-06-14 21:53] LABS: INTERNATIONAL NORMALIZED RATIO 2.9 RATIO; PROTHROMBIN TIME - PATIENT 33.9 SEC (9.8-11.6)
[2016-06-14] MEDS: WARFARIN SOD 4 MG TAB PO SCH (22:37)
[2016-06-15] VITALS: BP 91/55; PULSE 70; RESP 22; TEMP 97.8; O2SAT 97
[2016-06-15] MEDS: PIPERACIL-TAZO 3.375 GM PREMIX 50 ML IV SCH ×2 (01:59→09:25)
[2016-06-15 04:00] VITALS: BP 96/70; PULSE 80; RESP 22; TEMP 97.3; O2SAT 92
[2016-06-15] MEDS: LEVOTHYROXINE SODIUM 50 MCG TAB PO SCH (05:02)
[2016-06-15] MEDS: INSULIN ASPART SUPPLEMENTAL SCALE SQ SCH ×4 (06:05→21:50)
[2016-06-15 08:28] VITALS: BP 106/69; PULSE 88; RESP 16; TEMP 98.3; O2SAT 96
[2016-06-15 08:47] LABS: HEMATOCRIT 30.6 % (35.0-46.0); MEAN CORPUSCULAR HEMOGLOBIN 22.5 PG (27.0-34.0); MEAN CORPUSCULAR HGB CONC 30.9 % (32.0-36.0); PLATELET COUNT 145 TH/MM3 (150-450); WHITE BLOOD COUNT 10.6 TH/MM3 (4.0-11.0)
[2016-06-15 08:56] LABS: INTERNATIONAL NORMALIZED RATIO 3.8 RATIO
[2016-06-15 08:58] LABS: REVIEW FLAG FINAL
[2016-06-15] MEDS ORDERED: Vancomycin Consult Pharmacy 1 EA OTHER SCH (09:00)
[2016-06-15] MEDS: SODIUM CHLORIDE 0.9% FLUSH 10 ML FLUSH IV FLUSH SCH ×2 (09:00→21:51)
[2016-06-15 09:14] LABS: BICARBONATE 25.8 MEQ/L (21.0-32.0); POTASSIUM 3.5 MEQ/L (3.5-5.1)
[2016-06-15] MEDS: PANTOPRAZOLE SOD 40 MG DELAYED RELEASE TAB PO SCH (09:24)
[2016-06-15] MEDS: THIAMINE HCL 100 MG TAB PO SCH (09:24)
[2016-06-15] MEDS: ASPIRIN EC 81 MG TABEC PO SCH (09:24)
[2016-06-15] MEDS: LACTULOSE SYRUP 20 GM/30 ML CUP PO SCH (09:24)
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
[2016-06-15] MEDS ORDERED: VANCOMYCIN INJ 1,000 MG in SODIUM CHLOR 0.9% 250 ML INJ 250 ML IV ONE (11:55)
[2016-06-15] MEDS: LIDOCAINE HCL 5% PATCH T-DERMAL SCH (12:24)
[2016-06-15 12:34] VITALS: BP 97/62; PULSE 79; RESP 18; TEMP 97.4; O2SAT 94
--- NOTE | 2016-06-15 15:24 | MB ---
cc: JULIO WALTON MD DATE OF CONSULTATION: 06/15/[address] Nunez. REASON FOR CONSULTATION The patient with AICD and pneumonia. Positive blood culture for MRSA. HISTORY OF PRESENT ILLNESS This is a 45-year-old white female who has history of COPD. The patient presented to the emergency department on 06/13 with shortness of breath. The patient was admitted to the hospital and blood cultures were taken and both sets of blood cultures have MRSA. She had elevated white blood cell count and platelet count has decreased since admission. She also has left shift with 22% bands. Heart rate in the emergency department was 110. The patient tells me that she is coughing up sputum. The patient reports to me that she was entertaining her 13-year-old son who came on vacation for a week and throughout the week she was running around quite a bit and doing activities with him including fishing and going to the beach for him to surf. Subsequently, after approximately 5 days she became very exhausted and stayed in bed all day three days ago and the following day she came to the emergency department because she was getting increasingly short of breath. She states that she had become so exhausted that she could not continue to do activities with her son. She was evaluated in the emergency department and admitted to the hospital. The patient tells me that she took some puffs of an inhaler which belonged to her friend because she was short of breath. She states that she has no medicines of her own. She states that she was feeling cold but not having swetha chills. Temperature after admission was to 100.6 degrees. The patient has a cardiac defibrillator which was placed in 2012. She also has coronary stent in place. Lab work also reveals that she has acute renal failure. PAST MEDICAL HISTORY 1. Hypertension. 2. COPD. 3. Insulin dependent diabetes mellitus. 4. Coronary artery disease. 5. Hyperlipidemia. 6. Cirrhosis. 7. Chronic kidney disease. 8. Hypertension C. 9. Cholecystectomy. 10. Tubal ligation. 11. AICD. SOCIAL HISTORY The patient smokes eight cigarettes a day. Denies alcohol use. Denies illicit drug use. FAMILY HISTORY Noncontributory. REVIEW OF SYSTEMS GENERAL: Positive for chills. HEENT: No visual blurring or diplopia. No nasal drainage or discharge. No difficulty swallowing or soreness of the throat. No neck pain. CARDIOVASCULAR: No palpitations or chest pain. RESPIRATORY: Significant for cough and shortness of breath. GASTROINTESTINAL: No nausea or vomiting, abdominal pain or diarrhea. GENITOURINARY: No urgency, frequency or dysuria. ENDOCRINE: No polyuria or polydipsia. MUSCULOSKELETAL: No muscle aches or pains. INTEGUMENTARY: No skin rash or itching. HEMATOLOGY: No easy bruising or bleeding. NEUROLOGIC: No problems with coordination. PSYCHIATRIC: No problems with depression or mood changes. PHYSICAL EXAMINATION GENERAL: This is a pleasant, well-developed female, who is in no acute distress. She is awake and alert and oriented. VITAL SIGNS: Include temperature of 97.4, BP 97/62, respirations 18, heart rate 79. HEENT: Head is atraumatic. Extraocular movements grossly intact, pupils reactive to light without icterus. Oropharynx very poor dentition with multiple erosive teeth at both upper and lower. No thrush. NECK: Supple without adenopathy. LUNGS: Decreased breath sounds with slight basilar rhonchi. HEART: 2/6 systolic murmur at the left sternal border. CHEST: AICD in place at the left upper chest which has no tenderness and no swelling or erythema. ABDOMEN: Bowel sounds present, soft, no tenderness appreciated. RECTAL: Not performed. EXTREMITIES: No clubbing or cyanosis or edema. SKIN: No rash. NEURO: Nonfocal. PSYCHE: The patient is calm and cooperative. LABORATORY DATA WBC 10.6, platelets 145, hemoglobin 9.5, creatinine 1.59, BUN 18, sodium 136. Liver function tests normal. Total bilirubin 3.3. IMPRESSION 1. MRSA bacteremia in a patient with AICD device. Possible source includes device infection versus pneumonia. 2. Pneumonia. The patient noted to have partially consolidative infiltrate in the right lung which is new. 3. Sepsis on admission, elevated heart rate, elevated white blood cell count, and positive blood culture with source likely pneumonia. RECOMMENDATIONS 1. Continue vancomycin. 2. Discontinue piperacillin/Tazobactam. 3. Obtain sputum culture. 4. 2D Echocardiogram to evaluate for valvular vegetation. 5. Obtain repeat blood culture. 6. Monitor renal function and consider renal evaluation. Thank you for this consultation. The patient's progress will be monitored and further recommendations will be made on followup. Julio Walton MD FD/GENE /1:06 PM /2:54 PM
[2016-06-15 16:28] VITALS: BP 106/64; PULSE 83; RESP 18; TEMP 98.3; O2SAT 97
[2016-06-15 20:00] VITALS: BP 101/57; PULSE 107; RESP 20; TEMP 97.2; O2SAT 94
[2016-06-15] MEDS: REMOVE OLD LIDOCAINE PATCH T-DERMAL SCH (21:00)
[2016-06-15] MEDS: INSULIN DETEMIR 100 UNITS/ML VIAL SQ SCH (21:51)
[2016-06-16] VITALS (10 sets, daily range): BP systolic 106–135; BP diastolic 67–78; PULSE 74–90; RESP 16–20; TEMP 97.2–97.9; O2SAT 95–99
[2016-06-16] MEDS ORDERED: ACETAMINOPHEN 325 MG TAB PO ONE (02:15)
[2016-06-16] MEDS: LEVOTHYROXINE SODIUM 50 MCG TAB PO SCH (05:20)
[2016-06-16] MEDS: INSULIN ASPART SUPPLEMENTAL SCALE SQ SCH ×4 (06:33→22:46)
[2016-06-16 07:30] LABS: HEMATOCRIT 31.4 % (35.0-46.0); MEAN CELL VOLUME 73.4 FL (80.0-100.0); MEAN CORPUSCULAR HEMOGLOBIN 23.2 PG (27.0-34.0); MEAN CORPUSCULAR HGB CONC 31.7 % (32.0-36.0); PLATELET COUNT 169 TH/MM3 (150-450); RED BLOOD COUNT 4.28 MIL/MM3 (4.00-5.30); RED CELL DISTRIBUTION WIDTH 19.2 % (11.6-17.2); WHITE BLOOD COUNT 8.8 TH/MM3 (4.0-11.0)
[2016-06-16 07:35] LABS: INTERNATIONAL NORMALIZED RATIO 6.4 RATIO
[2016-06-16 07:45] LABS: REVIEW FLAG FINAL
[2016-06-16 07:54] LABS: BICARBONATE 23.9 MEQ/L (21.0-32.0); POTASSIUM 3.5 MEQ/L (3.5-5.1)
[2016-06-16] MEDS: PANTOPRAZOLE SOD 40 MG DELAYED RELEASE TAB PO SCH (08:53)
[2016-06-16] MEDS: ASPIRIN EC 81 MG TABEC PO SCH (08:53)
[2016-06-16] MEDS: THIAMINE HCL 100 MG TAB PO SCH (08:53)
[2016-06-16] MEDS: LACTULOSE SYRUP 20 GM/30 ML CUP PO SCH (08:53)
[2016-06-16] MEDS: SODIUM CHLORIDE 0.9% FLUSH 10 ML FLUSH IV FLUSH SCH ×2 (08:53→22:47)
[2016-06-16] MEDS: LIDOCAINE HCL 5% PATCH T-DERMAL SCH (08:54)
[2016-06-16] MEDS ORDERED: PHYTONADIONE 5 MG TAB PO ONE (09:15)
--- NOTE | 2016-06-16 10:34 | PD.CONS ---
HPI Service Nephrology Consult Requested By Reason for Consult Acute on CKD Primary Care Physician No Primary Care Physician History of Present Illness This is a 45 y/o female patient. She has extensive PMH including CHF (EF 15-20% ) with AICD, Hepatitis C, cirrhosis, bilateral PE's on Coumadin. She came to hospital for shortness of breath x 5 days. Xray showing right midlung infiltrates, she is being treated with vancomycin and Zosyn. Creatinine was 1.8 on arrival, which has improved to 1.35 as of today. Last month her creatinine was 0.98, GFR 60, consistent with underlying CKD II. She has had multiple episodes of DEL. This admission she has 3/4 positive blood cultures with + MRSA. We were consulted for management. She is awake, alert, reporting back pain and requesting pain medications. Her troponin is elevated at 0.16, from 0.13 earlier. She is tolerating oral fluids, not demonstrating fluid overload. (Leah Kirkpatrick) Review of Systems Constitutional: COMPLAINS OF: Fatigue, DENIES: Fever Respiratory: COMPLAINS OF: Cough, Wheezing, Sputum production, Shortness of breath Cardiovascular: DENIES: Chest pain, Lower Extremity Edema Gastrointestinal: DENIES: Abdominal pain (Leah Kirkpatrick) Past Family Social History Allergies: Coded Allergies: *MDRO Multi-Drug Resistant Organism (Verified Adverse Reaction, Unknown, ) MRSA (blood) - 06/13/16 Past Medical History CKD 2, baseline creatinien 0.98, GFR April Hepatitis C Cirrhosis Hypertension Hyperlipidemia Coronary artery disease s/p OK in 30s CHF, EF 15-20% with AICD COPD IDDM Past Surgical History 3 Tubal ligation Cholecystectomy Stent placement AICD placement Reported Medications Lovenox Inj (Enoxaparin Sodium) 60 Mg/0.6 Ml Syr 60 Mg SQ BID stop Lovenox when INR >2. Oxycodone (Oxycodone HCl) 5 Mg Tab 5 Mg PO Q4HR PRN Omeprazole 40 Mg Cap 40 Mg PO DAILY Vitamin B-1 (Thiamine HCl) 100 Mg Tab 100 Mg PO DAILY 30 Days Lactulose Liq (Lactulose) 10 Gm/15 Ml Soln 30 Ml PO DAILY 30 Days Lantus Inj (Insulin Glargine) 1,000 Unit/10 Ml Vial 15 Units SQ HS 30 Days Furosemide 20 Mg Tab 20 Mg PO DAILY Levothyroxine (Levothyroxine Sodium) 50 Mcg Tab 50 Mcg PO DAILY Warfarin 4 Mg Tab 4 Mg PO DAILY Lisinopril 5 Mg Tab 2.5 Mg PO DAILY Active Ordered Medications Current Medications Medications (Trade) Dose Ordered Sig/Digna Route Start Time Stop Time Status Last Admin (NS Flush) 2 ml UNSCH PRN IV FLUSH 06/13/16 22:30 (NS Flush) 2 ml BID IV FLUSH 06/14/16 09:00 06/16/16 08:53 (Tylenol) 650 mg Q4H PRN PO 06/13/16 22:30 06/14/16 06:40 (Zofran Inj) 4 mg Q6H PRN IVP 06/13/16 22:30 (Narcan Inj) 0.4 mg UNSCH PRN IV 06/13/16 22:30 (Ecotrin Ec) 81 mg DAILY PO 06/14/16 09:00 06/16/16 08:53 (Lasix) 20 mg DAILY PO 06/14/16 09:00 Hold 06/14/16 09:30 (Levemir Inj) 25 units HS SQ 06/13/16 23:00 06/15/16 21:51 (Lactulose Liq) 30 ml DAILY PO 06/14/16 09:00 06/16/16 08:53 (Synthroid) 50 mcg DAILY@0600 PO 06/14/16 06:00 06/16/16 05:20 (Prinivil) 2.5 mg DAILY PO 06/14/16 09:00 Hold (Protonix) 40 mg DAILY PO 06/14/16 09:00 06/16/16 08:53 (Vitamin B1) 100 mg DAILY PO 06/14/16 09:00 06/16/16 08:53 (D50w (Vial) Inj) 25 ml UNSCH PRN IV PUSH 06/13/16 22:45 (Glucagon Inj) 1 mg UNSCH PRN OTHER 06/13/16 22:45 Miscellaneous 1 ea 1 ea UNSCH PRN OTHER 06/13/16 23:00 (Coumadin Consult Pharmacy) 0 ml @ 0 mls/hr UNSCH OTHER 06/14/16 00:15 Warfarin Sodium 4 mg 4 mg DAILY@1600 PO 06/14/16 22:15 Hold 06/14/16 22:37 (Vancomycin Consult Pharmacy) 0 ml @ 0 mls/hr UNSCH OTHER 06/15/16 09:00 (Lidoderm 5% Patch.12 Hr) 1 patch DAILY T-DERMAL 06/15/16 11:15 06/16/16 08:54 Miscellaneous Information 1 1 Q24H T-DERMAL 06/15/16 21:00 06/15/16 21:00 (Vancomycin Inj/ NS 250 ml Inj) 250 ml @ 250 mls/hr Q24H IV 06/16/16 11:00 Miscellaneous Information SPECIFIC LAB TO BE DRAWN:VANCOMYCIN TROUGH DATE TO... ONCE ONCE .XX 06/18/16 10:45 06/18/16 10:46 Family History mother had heart disease several members with SCD no hx of renal disorders Social History daily smoker for several years no ETOH former IV methamphetamine use, denies use since 2008 unemployed lives with although they are full code independent with ADLs (Leah Kirkpatrick) Physical Exam Vital Signs Vital Signs Date Time Temp Pulse Resp B/P Pulse Ox O2 Delivery O2 Flow Rate FiO2 06/16/16 09:26 Room Air 21 06/16/16 08:39 21 06/16/16 08:04 97.3 85 18 106/70 95 06/16/16 06:53 83 06/16/16 04:00 97.9 90 20 115/69 97 06/16/16 00:00 97.9 82 18 135/67 99 06/15/16 20:00 97.2 107 20 101/57 94 06/15/16 16:28 98.3 83 18 106/64 97 06/15/16 12:34 97.4 79 18 97/62 94 Physical Exam Middle aged female, awake/alert no neuro deficits S1/S2, regular rage lungs; wheezing throughout all jay, no coughing, respiratory pattern unlabored Abd; soft, non tender Ext: no edema Laboratory Laboratory Tests Test 06/16/16 06/16/16 06:43 06:45 White Blood Count 8.8 Red Blood Count 4.28 Hemoglobin 9.9 Hematocrit 31.4 Mean Corpuscular Volume 73.4 Mean Corpuscular Hemoglobin 23.2 Mean Corpuscular Hemoglobin 31.7 Concent Red Cell Distribution Width 19.2 Platelet Count 169 Mean Platelet Volume 7.9 Prothrombin Time 77.0 Prothromb Time International 6.4 Ratio Sodium Level 136 Potassium Level 3.5 Chloride Level 101 Carbon Dioxide Level 23.9 Anion Gap 11 Blood Urea Nitrogen 15 Creatinine 1.35 Estimat Glomerular Filtration 42 Rate Random Glucose 79 Calcium Level 8.3 Random Vancomycin Level 8.4 Date/Time Procedure Status Source Growth 06/15/16 18:14 Aerobic Blood Culture Received Blood Peripheral Pending 06/15/16 18:14 Anaerobic Blood Culture Received Blood Peripheral Pending 06/13/16 23:35 Aerobic Blood Culture - Final Complete Blood Peripheral S. Aureus Mrsa 06/13/16 23:35 Anaerobic Blood Culture - Final Complete S. Aureus Mrsa (Leah Kirkpatrick) Result Diagram: 06/16/16 0643 06/16/16 0645 Imaging Last Impressions Chest X-Ray 06/13/161957 Signed Impressions: Service Date/Time: Monday, June 13, 2016 20:10 - CONCLUSION: New partially consolidative infiltrate in the right midlung. Alan Burton MD Abdomen Ultrasound 06/13/16 0000 Signed Impressions: Service Date/Time: Monday, June 13, 2016 23:58 - CONCLUSION: Very small volume ascites. Alan Lam Jr., MD (Leah Kirkpatrick) Assessment and Plan Problem List: (1) Acute kidney injury Plan: DEL on CKD 3, baseline GFR 60, Creatinine 0.98 DEL due to sepsis, diminished renal perfusion also her blood pressure dropped on to of the month renal function improved since admission no electrolyte disorders she is non oliguric at this time, IVF is not required she is eating/drinking adequately avoid nephrotoxins, renally dose medications when appropriate and monitor drug levels SHAKEEL on hold I have ordered UA, but she has no hx of proteinuria renal panel in am (2) Bacteremia due to Gram-positive bacteria Plan: 3/4 bottles with + MRSA ID following, currently on vancomycin and zosyn echo ordered to check for endocarditis check UA she is afebrile without leukocytosis (3) HTN (hypertension) Plan: BP borderline low SHAKEEL and lasix are held (4) CHF (congestive heart failure) Plan: echo ordered continue holding lasix monitor fluid volume status (Leah Kirkpatrick) Assessment and Plan patient was seen and examined. Agree with above assessment. Carefully monitor Vancomycin dosing, avoid levels above 20. (Jevon Villaseñor MD) Leah Kirkpatrick. [facility] Jun 16, 2016 10:34 Jevon Villaseñor MD Jun 16, 2016 11:53
--- NOTE | 2016-06-16 10:37 | EC ---
Study Study Date:06/15/2016 STUDY CONCLUSIONS SUMMARY - Left ventricle: The cavity size was dilated. Wall thickness was normal. Systolic function was severely reduced. The estimated ejection fraction was 20%. Wall motion was normal; there were no regional wall motion abnormalities. - Mitral valve: Moderate regurgitation. - Right ventricle: The cavity size was mildly dilated. Wall thickness was normal. - Tricuspid valve: Mild regurgitation. If LV function is below 40, please consider prescribing an ACEI or ARB or document rationale for non-use. PROCEDURE DATA STUDY STATUS: Elective. Procedure: Transthoracic echocardiography. Image quality was good. Scanning was performed from the parasternal, apical, and subcostal acoustic windows. Study completion: The patient tolerated the procedure well. Transthoracic echocardiography. M-mode, complete 2D, complete spectral Doppler, and color Doppler. Height: Height: 61in. Weight: Weight: 151.7lb. Body mass index: BMI: 28.7kg/m^2. Body surface area: BSA: 1.68m^2. Patient status: Inpatient. CARDIAC ANATOMY LEFT VENTRICLE: The cavity size was dilated. Wall thickness was normal. Systolic function was severely reduced. The estimated ejection fraction was 20%. Wall motion was normal; there were no regional wall motion abnormalities. AORTIC VALVE: Trileaflet; normal thickness leaflets. Doppler: Transvalvular velocity was within the normal range. There was no stenosis. No regurgitation. Valve area: 2.21cm^2 (Vmax). Indexed valve area: 1.32cm^2/m^2 (Vmax). AORTA: Aortic root: The aortic root was normal in size. MITRAL VALVE: Structurally normal valve. Doppler: Transvalvular velocity was within the normal range. There was no evidence for stenosis. Moderate regurgitation. Valve area by pressure half-time: 5cm^2. Indexed valve area by pressure half-time: 2.98cm^2/m^2. Mean gradient: 2mm Hg (D). Peak gradient: 4mm Hg (D). LEFT ATRIUM: The atrium was normal in size. RIGHT VENTRICLE: The cavity size was mildly dilated. Wall thickness was normal. PULMONIC VALVE: Doppler: Transvalvular velocity was within the normal range. There was no evidence for stenosis. Mild to moderate regurgitation. TRICUSPID VALVE: Structurally normal valve. Doppler: Transvalvular velocity was within the normal range. Mild regurgitation. Peak gradient: 37mm Hg (D). PULMONARY ARTERY: The main pulmonary artery was normal-sized. Systolic pressure was within the normal range. RIGHT ATRIUM: The atrium was normal in size. PERICARDIUM: There was no pericardial effusion. SYSTEMIC VEINS: Inferior vena cava: The vessel was normal in size. Patient weight: 151.7lb _Ejection fraction:_ 65-75% _Fractional shortening:_ 32% up to 5Kg 5-11.5Kg 11.6-22.9Kg 23-45Kg 45-57Kg Aortic Root 7-13 <17 13-22 17-27 17-27 LA diam 6-13 <23 24-38 33-47 37-40 RVID 10-17 7-15 7-15 7-18 8-17 LVIDd 12-22 <32 24-38 33-47 37-40 LVPW 2-4 3-6 5-7 6-8 7-8 IVS 2-4 3-6 5-7 6-8 7-8 BASIC MEASUREMENTS ADULT NORMAL Left ventricle LV internal dimension, ED, chordal *59.2 mm 43-52 level, PLAX LV internal dimension, ES, chordal *53.4 mm 23-38 level, PLAX Fractional shortening, chordal level, *10 % >29 PLAX LV posterior wall thickness, ED 10.6 mm IVS/LVPW ratio, ED 1 <1.3 Volume, ED, MOD, 1-plane 226 ml Volume, ES, MOD, 1-plane 182 ml Ejection fraction, MOD, 1-plane 19 % Stroke volume, MOD, 1-plane 44 ml Volume index, ED, MOD, 1-plane 135 ml/m^2 Volume index, ES, MOD, 1-plane 108 ml/m^2 Stroke index, MOD, 1-plane 26.2 ml/m^2 Ventricular septum Septal thickness, ED 10.6 mm Aortic valve Leaflet separation 19 mm 15-26 Left atrium Anterior-posterior dimension 42 mm Anterior-posterior dimension index *2.5 cm/m^2 <2.2 Right ventricle RV internal dimension, ED, PLAX 32.3 mm 19-38 BASIC MEASUREMENTS ADULT NORMAL Aortic valve Leaflet separation 19 mm 15-26 Aorta Root diameter, ED 33 mm 20-37 Left atrium Anterior-posterior dimension, ES 40 mm 19-40 Anterior-posterior dimension index, ES *2.38 cm/m^2 <2.2 LA/aortic root ratio 1.21 DOPPLER MEASUREMENTS ADULT NORMAL Aortic valve Peak velocity, S 121 cm/s VTI, S 35.5 cm Valve area, Vmax 2.21 cm^2 Valve area index, Vmax 1.32 cm^2/m^2 Mitral valve Peak E-wave velocity 114 cm/s Peak A-wave velocity 72.1 cm/s Mean velocity, D 73.9 cm/s Pressure half-time 44 ms Mean gradient, D 2 mm Hg Peak gradient, D 4 mm Hg Peak E/A ratio 1.6 Valve area, pressure half-time 5 cm^2 Valve area index, pressure half-time 2.98 cm^2/m^2 Tricuspid valve Peak gradient, D 37 mm Hg Maximal inflow velocity 304 cm/s Systemic veins Estimated CVP 10 mm Hg Pulmonic valve Peak velocity, S 100 cm/s Acceleration time 384 ms LEGEND: Mean values are shown as u=mean value. Asterisk (*) godfrey values outside specified normal range. Prepared and signed by Agustín Pelayo [id number]
[2016-06-16] MEDS: VANCOMYCIN 1,000 MG/NS 250 ML IV SCH ×2 (11:35)
--- NOTE | 2016-06-16 13:11 | HHI.PR ---
Subjective Remarks Follow-up bacteremia, sepsis, renal failure, lower back pain Patient continues complain of lower back pain and asking for pain medication. She stated that her back pain is localized and she is ambulating and doing everything as directed. Denies any lower extremity weakness or any incontinence. Patient stated that she has the pain before and thinks that he got exacerbated because of the bed. Otherwise she has no other complaints. Objective Vitals Vital Signs Date Time Temp Pulse Resp B/P Pulse Ox O2 Delivery O2 Flow Rate FiO2 06/16/16 12:14 97.4 74 18 118/78 98 06/16/16 09:26 Room Air 21 06/16/16 08:39 21 06/16/16 08:04 97.3 85 18 106/70 95 06/16/16 06:53 83 06/16/16 04:00 97.9 90 20 115/69 97 06/16/16 00:00 97.9 82 18 135/67 99 06/15/16 20:00 97.2 107 20 101/57 94 06/15/16 16:28 98.3 83 18 106/64 97 I/O 06/15/16 06/15/16 06/15/16 06/16/16 06/16/16 06/16/16 07:00 15:00 23:00 07:00 15:00 23:00 Intake Total 320 ml 770 ml 830 ml 480 ml Balance 320 ml 770 ml 830 ml 480 ml Intake Oral 320 ml 720 ml 480 ml 480 ml IV Total 50 ml 350 ml # Voids 3 3 0 0 # Bowel Movements 0 1 0 0 Result Diagram: 06/16/16 0643 06/16/16 0645 Objective Remarks GENERAL: in NAD CARDIOVASCULAR: Regular rate and rhythm without murmurs, gallops, or rubs. RESPIRATORY: Breath sounds equal bilaterally. No accessory muscle use. GASTROINTESTINAL: Abdomen soft, non-tender, nondistended. MUSCULOSKELETAL: No cyanosis, or edema. 5/5 LE strength BACK: Nontender without obvious deformity. No CVA tenderness. Medications and IVs Current Medications Sodium Chloride (NS Flush) 2 ml UNSCH PRN IVF FLUSH AFTER USING IV ACCESS; Start 06/13/16 at 20:00; Stop 06/13/16 at 22:41; Status DC Ondansetron HCl (Zofran Inj) 4 mg ONCE ONCE IV Last administered on 06/13/16 20:34; Start 06/13/16 at 20:30; Stop 06/13/16 at 20:31; Status DC Aspirin 81 mg 81 mg ONCE ONCE CHEW Last administered on 06/13/16 20:34; Start 06/13/16 at 20:30; Stop 06/13/16 at 20:31; Status DC Piperacillin Sod/ Tazobactam Sod (Zosyn 4.5 Gm Premix) 100 ml @ 200 mls/hr ONCE ONCE IV Last administered on 06/13/16 20:38; Start 06/13/16 at 20:30; Stop 06/13/16 at 20:59; Status DC Sodium Chloride (NS Flush) 2 ml UNSCH PRN IV FLUSH FLUSH AFTER USING IV ACCESS ; Start 06/13/16 at 22:30 Sodium Chloride (NS Flush) 2 ml BID IV FLUSH Last administered on 06/16/16 08: 53; Start 06/14/16 at 09:00 Acetaminophen (Tylenol) 650 mg Q4H PRN PO TEMP > 100.4 Last administered on 06:40; Start 06/13/16 at 22:30 Ondansetron HCl (Zofran Inj) 4 mg Q6H PRN IVP NAUSEA OR VOMITING; Start at 22:30 Naloxone HCl (Narcan Inj) 0.4 mg UNSCH PRN IV SEE LABEL COMMENTS; Start at 22:30 Insulin Aspart 1 1 ACHS SLIDING SCALE SQ Last administered on 06/15/16 21:50 ; Start 06/14/16 at 07:00 Piperacillin Sod/ Tazobactam Sod (Zosyn 4.5 Gm Premix) 100 ml @ 200 mls/hr Q6H IV ; Start 06/14/16 at 02:30; Stop 06/14/16 at 02:30; Status DC Morphine Sulfate 2 mg 2 mg ONCE ONCE IV PUSH ; Start 06/13/16 at 22:45; Stop at 22:47; Status DC Piperacillin Sod/ Tazobactam Sod (Zosyn 3.375 Gm Premix) 50 ml @ 100 mls/hr Q6H IV Last administered on 06/15/16 09:25; Start 06/14/16 at 02:00; Stop at 13:02; Status DC Aspirin (Ecotrin Ec) 81 mg DAILY PO Last administered on 06/16/16 08:53; Start 06/14/16 at 09:00 Furosemide (Lasix) 20 mg DAILY PO Last administered on 06/14/16 09:30; Start 06/14/16 at 09:00; Status Hold Insulin Detemir (Levemir Inj) 25 units HS SQ Last administered on 06/15/16 21: 51; Start 06/13/16 at 23:00 Lactulose (Lactulose Liq) 30 ml DAILY PO Last administered on 06/16/16 08:53; Start 06/14/16 at 09:00 Levothyroxine Sodium (Synthroid) 50 mcg DAILY@0600 PO Last administered on 06/16 05:20; Start 06/14/16 at 06:00 Lisinopril (Prinivil) 2.5 mg DAILY PO ; Start 06/14/16 at 09:00; Status Hold Warfarin Sodium (Coumadin) 4 mg DAILY@1600 PO ; Start 06/14/16 at 16:00; Status Cancel Pantoprazole Sodium (Protonix) 40 mg DAILY PO Last administered on 06/16/16 08 :53; Start 06/14/16 at 09:00 Thiamine HCl (Vitamin B1) 100 mg DAILY PO Last administered on 06/16/16 08:53 ; Start 06/14/16 at 09:00 Dextrose (D50w (Vial) Inj) 25 ml UNSCH PRN IV PUSH HYPOGLYCEMIA-SEE COMMENTS; Start 06/13/16 at 22:45 Glucagon (Glucagon Inj) 1 mg UNSCH PRN OTHER HYPOGLYCEMIA-SEE COMMENTS; Start 06/13/16 at 22:45 Miscellaneous (Pill Splitter) 1 ea UNSCH PRN OTHER SEE LABEL COMMENTS; Start at 23:00 Miscellaneous Information ALL NURSING DEPARTME... UNSCH PRN OTHER SEE LABEL COMMENTS; Start 06/13/16 at 23:00; Stop 06/14/16 at 22:59; Status DC Patient Medication Teaching 1 1 ONCE ONCE OTHER ; Start 06/13/16 at 16:00; Stop 06/13/16 at 22:52; Status DC Sodium Chloride (NS 500 ml Inj) 500 ml @ 0 mls/hr Q0M ONCE IV Last administered on 06/13/16 23:02; Start 06/13/16 at 23:00; Stop 06/13/16 at 23:01 ; Status DC Albumin Human 25 gm 25 gm ONCE ONCE IV Last administered on 06/14/16 00:03; Start 06/13/16 at 23:30; Stop 06/13/16 at 23:31; Status DC Pharmacy Profile Note 0 ml @ 0 mls/hr UNSCH OTHER ; Start 06/14/16 at 00:15 Sodium Chloride (NS 250 ml Inj) 250 ml @ 250 mls/hr BOLUS ONCE IV Last administered on 06/14/16 14:46; Start 06/14/16 at 14:00; Stop 06/14/16 at 14:59 ; Status DC Warfarin Sodium (Coumadin) 4 mg DAILY@1600 PO Last administered on 06/14/16 22 :37; Start 06/14/16 at 22:15; Status Hold Patient Medication Teaching 1 1 ONCE ONCE OTHER Last administered on 22:38; Start 06/14/16 at 22:15; Stop 06/14/16 at 22:16; Status DC Vancomycin HCl 1000 mg/Sodium Chloride 250 ml @ 250 mls/hr ONCE ONCE IV Last administered on 06/15/16 12:24; Start 06/15/16 at 11:55; Stop 06/15/16 at 12:54 ; Status DC Pharmacy Profile Note (Vancomycin Consult Pharmacy) 0 ml @ 0 mls/hr UNSCH OTHER ; Start 06/15/16 at 09:00 Lidocaine HCl (Lidoderm 5% Patch.12 Hr) 1 patch DAILY T-DERMAL Last administered on 06/16/16 08:54; Start 06/15/16 at 11:15 Miscellaneous Information 1 Q24H T-DERMAL Last administered on 06/15/16 21:00 ; Start 06/15/16 at 21:00 Acetaminophen (Tylenol) 650 mg ONCE ONCE PO Last administered on 06/16/16 02: 15; Start 06/16/16 at 02:15; Stop 06/16/16 at 02:16; Status DC Phytonadione 2.5 mg 2.5 mg DAILY ONCE PO Last administered on 06/16/16 11:35 ; Start 06/16/16 at 09:15; Stop 06/16/16 at 09:16; Status DC Vancomycin HCl/ Sodium Chloride (Vancomycin Inj/ NS 250 ml Inj) 250 ml @ 250 mls/hr Q24H IV Last administered on 06/16/16t 11:35; Start 06/16/16 at 11:00 Miscellaneous Information SPECIFIC LAB TO BE DRAWN:VANCOMYCIN TROUGH DATE TO... ONCE ONCE .XX ; Start 06/18/16 at 10:45; Stop 06/18/16 at 10:46 Tramadol/ Acetaminophen (Ultracet 37.5-325 Mg) 1 tab Q8HR PRN PO pain; Start at 13:00 A/P Problem List: (1) Pulmonary embolism ICD Code: I26.99 Status: Chronic (2) CAD (coronary artery disease) ICD Code: I25.10 Status: Chronic (3) DM (diabetes mellitus) ICD Code: E11.9 Status: Chronic (4) CHF (congestive heart failure) ICD Code: I50.9 Status: Chronic (5) Pneumonia ICD Code: J18.9 Status: Acute (6) COPD (chronic obstructive pulmonary disease) ICD Code: J44.9 Status: Chronic (7) HTN (hypertension) ICD Code: I10 Status: Chronic (8) HLD (hyperlipidemia) ICD Code: E78.5 Status: Chronic Assessment and Plan 45-year-old female with multiple comorbidities presents to the emergency department with increasing shortness of breath. Pneumonia -Patient recently hospitalized with multiple medical comorbidities and new consolidation on chest x-ray and oxygen requirement, -Blood cultures + 2/4 for MRSA. -Infectious disease was consulted and Zosyn was discontinued on 06/15/2016 and vancomycin was continued. MRSA bacteremia -on vancomycin and consult ID. -Repeat blood cultures are pending. Bilateral pulmonary embolism -Patient's INR increasing to 6.4. pharmacy dosing and will hold coumadin. -Patient has no sign of bleeding but since INR continues to increase in the setting of acute renal failure and sepsis we will give a dose of vitamin K 2.5 mg once and continue to check INR. Cirrhosis/hepatitis C -Abdominal ultrasound showed small amount of ascites. -Continue home lactulose CHF s/p AICD in place -Last echo done in March 2016 showed an EF of 1020 percent. Repeat echo on 06/15 showed an EF of 20%. -BNP 2326, was 2127 1 month ago -due to low BP lasix held on 06/14. reconsider restarting with improvement and okay with clock repairer. Hypotension -after light bolus with 250 cc of NS on 06/14 and hold Lasix and lisinopril it improved. -Seems to have resolved. Due to acute renal failure we'll continue to hold Lasix and lisinopril until okay with clock repairer. CAD -Status post stent placement -Continue aspirin -EKG showed sinus tach, no ST elevations/depressions CKD -Patient with known CKD, Cr 1.8 today baseline 1.3 -Patient back to her baseline. -avoid nephrotoxic mildly elevated troponin -due to CKD and CHF. -continue to trend. Diabetes Mellitus -Continue home Levemir -SSI Hypertension -Continue home lisinopril Lower back pain -Per patient Lidoderm and heating pad does not work and she is ambulating. Will get an x-ray of her lower back and start tramadol/acetaminophen when necessary. -caution with pain medication due to hx of IVDU. DVT prophylaxis -on warfarin Problem Qualifiers (1) Pneumonia: Qualified Code: J18.1 - Pneumonia of right middle lobe due to infectious organism (2) COPD (chronic obstructive pulmonary disease): Qualified Code: J44.9 - Chronic obstructive pulmonary disease, unspecified COPD type Carolina Nunez MD Jun 16, 2016 13:11
[2016-06-16] MEDS: traMADol/ACETAMINOPHEN 37.5/325 1 TAB PO PRN ×2 (13:52→22:45)
--- NOTE | 2016-06-16 15:22 | RADRPT ---
EXAM DATE/TIME: 06/16/2016 15:06 [facility] COMPARISON: No previous studies available for comparison. INDICATIONS : Back pain. MEDICAL HISTORY : None. SURGICAL HISTORY : None. ENCOUNTER: Initial ACUITY: 1 day PAIN SCORE: 0/10 LOCATION: Bilateral L-spine FINDINGS: There are five non-rib bearing vertebral bodies. The vertebral bodies are in normal alignment withou t evidence of subluxation or scoliosis. There mild degenerative disc changes at the L1-2 and L3-4 lev els with mild disc space narrowing and hypertrophic change. Vascular calcifications are present. The posterior elements are intact without evidence of spondylolysis. The pedicles are intact. Bony mine ralization is normal. No fracture is identified. CONCLUSION: 1. Mild degenerative disc change at the L1-2 and L3-4 levels. Gerber Pimentel MD on June 16, 2016 at 15:19 Board Certified Radiologist. This report was verified electronically.
--- NOTE | 2016-06-16 16:19 | HHI.IDPN ---
Note Infectious Disease Note Patient complains of back pain. Says she normally sleeps on a memory foam mattress. Afebrile. Scant cough. Not coughing up sputum. 2D ECHO reveal EF of 20% unchanged. Denies chills. Repeat blood culture negative x 1 day. PAST MEDICAL HISTORY 1. Hypertension. 2. COPD. 3. Insulin dependent diabetes mellitus. 4. Coronary artery disease. 5. Hyperlipidemia. 6. Cirrhosis. 7. Chronic kidney disease. 8. Hypertension C. 9. Cholecystectomy. 10. Tubal ligation. 11. AICD. SOCIAL HISTORY The patient smokes eight cigarettes a day. Denies alcohol use. Denies illicit drug use. FAMILY HISTORY Noncontributory. Objective: Vital Signs Date Time Temp Pulse Resp B/P Pulse Ox O2 Delivery O2 Flow Rate FiO2 06/16/16 12:14 97.4 74 18 118/78 98 06/16/16 09:26 Room Air 21 06/16/16 08:39 21 06/16/16 08:04 97.3 85 18 106/70 95 06/16/16 06:53 83 06/16/16 04:00 97.9 90 20 115/69 97 06/16/16 00:00 97.9 82 18 135/67 99 06/15/16 20:00 97.2 107 20 101/57 94 06/15/16 16:28 98.3 83 18 106/64 97 06/15/16 06/15/16 06/16/16 15:00 23:00 07:00 Intake Total 770 ml 830 ml 480 ml Balance 770 ml 830 ml 480 ml Intake Oral 720 ml 480 ml 480 ml IV Total 50 ml 350 ml # Voids 3 0 0 # Bowel Movements 1 0 0 Laboratory Tests Test 06/15/16 06/16/16 07:58 06:43 White Blood Count 10.6 TH/MM3 8.8 TH/MM3 Red Blood Count 4.20 MIL/MM3 4.28 MIL/MM3 Hemoglobin 9.5 GM/DL 9.9 GM/DL Hematocrit 30.6 % 31.4 % Mean Corpuscular Volume 73.0 FL 73.4 FL Mean Corpuscular Hemoglobin 22.5 PG 23.2 PG Mean Corpuscular Hemoglobin 30.9 % 31.7 % Concent Red Cell Distribution Width 19.0 % 19.2 % Platelet Count 145 TH/MM3 169 TH/MM3 Mean Platelet Volume 7.7 FL 7.9 FL Laboratory Tests Test 06/14/16 06/15/16 06/16/16 16:57 07:58 06:45 Sodium Level 136 MEQ/L 136 MEQ/L 136 MEQ/L Potassium Level 3.1 MEQ/L 3.5 MEQ/L 3.5 MEQ/L Chloride Level 99 MEQ/L 100 MEQ/L 101 MEQ/L Carbon Dioxide Level 24.9 MEQ/L 25.8 MEQ/L 23.9 MEQ/L Anion Gap 12 MEQ/L 10 MEQ/L 11 MEQ/L Blood Urea Nitrogen 17 MG/DL 18 MG/DL 15 MG/DL Creatinine 1.81 MG/DL 1.59 MG/DL 1.35 MG/DL Estimat Glomerular Filtration 30 ML/MIN 35 ML/MIN 42 ML/MIN Rate Random Glucose 140 MG/DL 89 MG/DL 79 MG/DL Calcium Level 7.8 MG/DL 7.8 MG/DL 8.3 MG/DL Troponin I 0.16 NG/ML Microbiology Date/Time Procedure Status Source Growth 06/13/16 23:30 Aerobic Blood Culture - Final Resulted Blood Peripheral S. Aureus Mrsa 06/13/16 23:30 Anaerobic Blood Culture - Preliminary Resulted Blood Peripheral NO GROWTH IN 3 DAYS 06/13/16 23:35 Aerobic Blood Culture - Final Complete Blood Peripheral S. Aureus Mrsa 06/13/16 23:35 Anaerobic Blood Culture - Final Complete S. Aureus Mrsa 06/15/16 17:59 Aerobic Blood Culture - Preliminary Resulted Blood Peripheral NO GROWTH IN 1 DAY 06/15/16 17:59 Anaerobic Blood Culture - Preliminary Resulted Blood Peripheral NO GROWTH IN 1 DAY 06/15/16 18:14 Aerobic Blood Culture - Preliminary Resulted Blood Peripheral NO GROWTH IN 1 DAY 06/15/16 18:14 Anaerobic Blood Culture - Preliminary Resulted Blood Peripheral NO GROWTH IN 1 DAY IMAGING: Lumbar Spine X-Ray 06/16/16 0000 Signed Impressions: Service Date/Time: Thursday, June 16, 2016 15:06 - CONCLUSION: 1. Mild degenerative disc change at the L1-2 and L3-4 levels. Gerber Pimentel MD Chest X-Ray 06/13/16 195 Signed Impressions: Service Date/Time: Monday, June 13, 2016 20:10 - CONCLUSION: New partially consolidative infiltrate in the right midlung. Alan Burton MD Abdomen Ultrasound 06/13/16 0000 Signed Impressions: Service Date/Time: Monday, June 13, 2016 23:58 - CONCLUSION: Very small volume ascites. Alan Lam Jr., MD PHYSICAL EXAMINATION GENERAL: No acute distress. She is awake and alert and oriented. HEENT: Head is atraumatic. Extraocular movements grossly intact, pupils reactive to light without icterus. Oropharynx very poor dentition with multiple erosive teeth at both upper and lower. No thrush. NECK: Supple without adenopathy. LUNGS: Decreased breath sounds with slight basilar rhonchi. HEART: 2/6 systolic murmur at the left sternal border. CHEST: AICD in place at the left upper chest which has no tenderness and no swelling or erythema. ABDOMEN: Bowel sounds present, soft, no tenderness appreciated. EXTREMITIES: No clubbing or cyanosis or edema. SKIN: No rash. NEURO: Nonfocal. PSYCHE: Calm and cooperative. IMPRESSION 1. MRSA bacteremia in a patient with AICD device. Possible source includes device infection versus pneumonia. 2. Pneumonia. The patient noted to have partially consolidative infiltrate in the right lung which is new. 3. Sepsis on admission, elevated heart rate, elevated white blood cell count, and positive blood culture with source likely pneumonia. RECOMMENDATIONS 1. Continue vancomycin. 2. Monitor repeat blood culture. 3. Obtain SAHIL if the repeat blood culture is positive day 3, otherwise arrange for treatment outpatient x 3 - 4 weeks. Manny Stack MD Jun 16, 2016 16:19
[2016-06-16] MEDS: REMOVE OLD LIDOCAINE PATCH T-DERMAL SCH (21:00)
[2016-06-16] MEDS: INSULIN DETEMIR 100 UNITS/ML VIAL SQ SCH (22:46)
[2016-06-17] VITALS (9 sets, daily range): BP systolic 109–121; BP diastolic 72–94; PULSE 82–90; RESP 16–18; TEMP 97.2–98.1; O2SAT 95–100
[2016-06-17] MEDS: traMADol/ACETAMINOPHEN 37.5/325 1 TAB PO PRN ×2 (05:51→15:55)
[2016-06-17] MEDS: LEVOTHYROXINE SODIUM 50 MCG TAB PO SCH (05:51)
[2016-06-17] MEDS: INSULIN ASPART SUPPLEMENTAL SCALE SQ SCH ×4 (06:28→20:17)
[2016-06-17 08:00] LABS: INTERNATIONAL NORMALIZED RATIO 2.9 RATIO; PROTHROMBIN TIME - PATIENT 33.5 SEC (9.8-11.6)
[2016-06-17] MEDS: SODIUM CHLORIDE 0.9% FLUSH 10 ML FLUSH IV FLUSH SCH ×2 (09:00→20:17)
[2016-06-17] MEDS: PANTOPRAZOLE SOD 40 MG DELAYED RELEASE TAB PO SCH (09:06)
[2016-06-17] MEDS: LACTULOSE SYRUP 20 GM/30 ML CUP PO SCH (09:06)
[2016-06-17] MEDS: LIDOCAINE HCL 5% PATCH T-DERMAL SCH (09:06)
[2016-06-17] MEDS: ASPIRIN EC 81 MG TABEC PO SCH (09:06)
[2016-06-17] MEDS: THIAMINE HCL 100 MG TAB PO SCH (09:06)
[2016-06-17] MEDS: VANCOMYCIN 1,000 MG/NS 250 ML IV SCH ×2 (11:06)
[2016-06-17] MEDS: CYCLOBENZAPRINE HCL 10 MG TAB PO SCH ×2 (11:57→20:17)
--- NOTE | 2016-06-17 12:00 | HHI.PR ---
Subjective Remarks Follow-up for bacteremia and pneumonia Patient denies any shortness of breathing. She remains afebrile She continues to complain of lower back pain wants to go home sleep at home bed. Patient also asking for sleeping aid. Objective Vitals Vital Signs Date Time Temp Pulse Resp B/P Pulse Ox O2 Delivery O2 Flow Rate FiO2 06/17/16 08:06 97.3 88 16 121/94 100 06/17/16 04:00 97.2 82 16 121/83 95 06/17/16 00:00 97.3 85 18 109/72 96 06/16/16 20:30 Room Air 06/16/16 20:10 87 06/16/16 20:00 97.2 82 16 112/77 96 06/16/16 17:41 98 21 06/16/16 16:20 97.4 80 17 115/74 98 06/16/16 12:14 97.4 74 18 118/78 98 I/O 06/16/16 06/16/16 06/16/16 06/17/16 06/17/16 06/17/16 07:00 15:00 23:00 07:00 15:00 23:00 Intake Total 480 ml 720 ml 480 ml 240 ml Balance 480 ml 720 ml 480 ml 240 ml Intake Oral 480 ml 720 ml 480 ml 240 ml # Voids 0 3 3 3 # Bowel Movements 0 1 2 0 Result Diagram: 06/16/16 0643 06/16/16 0645 Objective Remarks GENERAL: in NAD CARDIOVASCULAR: Regular rate and rhythm without murmurs, gallops, or rubs. RESPIRATORY: Breath sounds equal bilaterally. No accessory muscle use. GASTROINTESTINAL: Abdomen soft, non-tender, nondistended. MUSCULOSKELETAL: No cyanosis, or edema. 5/5 LE strength. + paraspinal muscle spasm in lower back. BACK: Nontender without obvious deformity. No CVA tenderness. Medications and IVs Current Medications Sodium Chloride (NS Flush) 2 ml UNSCH PRN IVF FLUSH AFTER USING IV ACCESS; Start 06/13/16 at 20:00; Stop 06/13/16 at 22:41; Status DC Ondansetron HCl (Zofran Inj) 4 mg ONCE ONCE IV Last administered on 06/13/16t 20:34; Start 06/13/16 at 20:30; Stop 06/13/16 at 20:31; Status DC Aspirin 81 mg 81 mg ONCE ONCE CHEW Last administered on 06/13/16 20:34; Start 06/13/16 at 20:30; Stop 06/13/16 at 20:31; Status DC Piperacillin Sod/ Tazobactam Sod (Zosyn 4.5 Gm Premix) 100 ml @ 200 mls/hr ONCE ONCE IV Last administered on 06/13/16 20:38; Start 06/13/16 at 20:30; Stop 06/13/16 at 20:59; Status DC Sodium Chloride (NS Flush) 2 ml UNSCH PRN IV FLUSH FLUSH AFTER USING IV ACCESS ; Start 06/13/16 at 22:30 Sodium Chloride (NS Flush) 2 ml BID IV FLUSH Last administered on 06/17/16 09: 00; Start 06/14/16 at 09:00 Acetaminophen (Tylenol) 650 mg Q4H PRN PO TEMP > 100.4 Last administered on 06:40; Start 06/13/16 at 22:30 Ondansetron HCl (Zofran Inj) 4 mg Q6H PRN IVP NAUSEA OR VOMITING; Start at 22:30 Naloxone HCl (Narcan Inj) 0.4 mg UNSCH PRN IV SEE LABEL COMMENTS; Start at 22:30 Insulin Aspart 1 1 ACHS SLIDING SCALE SQ Last administered on 06/17/16 11:08 ; Start 06/14/16 at 07:00 Piperacillin Sod/ Tazobactam Sod (Zosyn 4.5 Gm Premix) 100 ml @ 200 mls/hr Q6H IV ; Start 06/14/16 at 02:30; Stop 06/14/16 at 02:30; Status DC Morphine Sulfate 2 mg 2 mg ONCE ONCE IV PUSH ; Start 06/13/16 at 22:45; Stop at 22:47; Status DC Piperacillin Sod/ Tazobactam Sod (Zosyn 3.375 Gm Premix) 50 ml @ 100 mls/hr Q6H IV Last administered on 06/15/16 09:25; Start 06/14/16 at 02:00; Stop at 13:02; Status DC Aspirin (Ecotrin Ec) 81 mg DAILY PO Last administered on 06/17/16 09:06; Start 06/14/16 at 09:00 Furosemide (Lasix) 20 mg DAILY PO Last administered on 06/14/16 09:30; Start 06/14/16 at 09:00; Status Hold Insulin Detemir (Levemir Inj) 25 units HS SQ Last administered on 06/16/16 22: 46; Start 06/13/16 at 23:00 Lactulose (Lactulose Liq) 30 ml DAILY PO Last administered on 06/17/16 09:06; Start 06/14/16 at 09:00 Levothyroxine Sodium (Synthroid) 50 mcg DAILY@0600 PO Last administered on 06/17 05:51; Start 06/14/16 at 06:00 Lisinopril (Prinivil) 2.5 mg DAILY PO ; Start 06/14/16 at 09:00; Status Hold Warfarin Sodium (Coumadin) 4 mg DAILY@1600 PO ; Start 06/14/16 at 16:00; Status Cancel Pantoprazole Sodium (Protonix) 40 mg DAILY PO Last administered on 06/17/16 09 :06; Start 06/14/16 at 09:00 Thiamine HCl (Vitamin B1) 100 mg DAILY PO Last administered on 06/17/16 09:06 ; Start 06/14/16 at 09:00 Dextrose (D50w (Vial) Inj) 25 ml UNSCH PRN IV PUSH HYPOGLYCEMIA-SEE COMMENTS; Start 06/13/16 at 22:45 Glucagon (Glucagon Inj) 1 mg UNSCH PRN OTHER HYPOGLYCEMIA-SEE COMMENTS; Start 06/13/16 at 22:45 Miscellaneous (Pill Splitter) 1 ea UNSCH PRN OTHER SEE LABEL COMMENTS; Start at 23:00 Miscellaneous Information ALL NURSING DEPARTME... UNSCH PRN OTHER SEE LABEL COMMENTS; Start 06/13/16 at 23:00; Stop 06/14/16 at 22:59; Status DC Patient Medication Teaching 1 1 ONCE ONCE OTHER ; Start 06/13/16 at 16:00; Stop 06/13/16 at 22:52; Status DC Sodium Chloride (NS 500 ml Inj) 500 ml @ 0 mls/hr Q0M ONCE IV Last administered on 06/13/16 23:02; Start 06/13/16 at 23:00; Stop 06/13/16 at 23:01 ; Status DC Albumin Human 25 gm 25 gm ONCE ONCE IV Last administered on 06/14/16 00:03; Start 06/13/16 at 23:30; Stop 06/13/16 at 23:31; Status DC Pharmacy Profile Note 0 ml @ 0 mls/hr UNSCH OTHER ; Start 06/14/16 at 00:15 Sodium Chloride (NS 250 ml Inj) 250 ml @ 250 mls/hr BOLUS ONCE IV Last administered on 06/14/16 14:46; Start 06/14/16 at 14:00; Stop 06/14/16 at 14:59 ; Status DC Warfarin Sodium (Coumadin) 4 mg DAILY@1600 PO Last administered on 06/14/16 22 :37; Start 06/14/16 at 22:15; Status Hold Patient Medication Teaching 1 1 ONCE ONCE OTHER Last administered on 22:38; Start 06/14/16 at 22:15; Stop 06/14/16 at 22:16; Status DC Vancomycin HCl 1000 mg/Sodium Chloride 250 ml @ 250 mls/hr ONCE ONCE IV Last administered on 06/15/16 12:24; Start 06/15/16 at 11:55; Stop 06/15/16 at 12:54 ; Status DC Pharmacy Profile Note (Vancomycin Consult Pharmacy) 0 ml @ 0 mls/hr UNSCH OTHER ; Start 06/15/16 at 09:00 Lidocaine HCl (Lidoderm 5% Patch.12 Hr) 1 patch DAILY T-DERMAL Last administered on 06/17/16 09:06; Start 06/15/16 at 11:15 Miscellaneous Information 1 Q24H T-DERMAL Last administered on 06/16/16 21:00 ; Start 06/15/16 at 21:00 Acetaminophen (Tylenol) 650 mg ONCE ONCE PO Last administered on 06/16/16 02: 15; Start 06/16/16 at 02:15; Stop 06/16/16 at 02:16; Status DC Phytonadione 2.5 mg 2.5 mg DAILY ONCE PO Last administered on 06/16/16 11:35 ; Start 06/16/16 at 09:15; Stop 06/16/16 at 09:16; Status DC Vancomycin HCl/ Sodium Chloride (Vancomycin Inj/ NS 250 ml Inj) 250 ml @ 250 mls/hr Q24H IV Last administered on 06/17/16 11:06; Start 06/16/16 at 11:00 Miscellaneous Information SPECIFIC LAB TO BE DRAWN:VANCOMYCIN TROUGH DATE TO... ONCE ONCE .XX ; Start 06/18/16 at 10:45; Stop 06/18/16 at 10:46 Tramadol/ Acetaminophen (Ultracet 37.5-325 Mg) 1 tab Q8HR PRN PO pain Last administered on 06/17/16t 05:51; Start 06/16/16 at 13:00 Cyclobenzaprine HCl (Flexeril) 10 mg Q8H PO ; Start 06/17/16 at 12:00 Zolpidem Tartrate (Ambien) 5 mg HS PRN PO insomnia; Start 06/17/16 at 11:45 A/P Problem List: (1) Pulmonary embolism ICD Code: I26.99 Status: Chronic (2) CAD (coronary artery disease) ICD Code: I25.10 Status: Chronic (3) DM (diabetes mellitus) ICD Code: E11.9 Status: Chronic (4) CHF (congestive heart failure) ICD Code: I50.9 Status: Chronic (5) Pneumonia ICD Code: J18.9 Status: Acute (6) COPD (chronic obstructive pulmonary disease) ICD Code: J44.9 Status: Chronic (7) HTN (hypertension) ICD Code: I10 Status: Chronic (8) HLD (hyperlipidemia) ICD Code: E78.5 Status: Chronic Assessment and Plan 45-year-old female with multiple comorbidities presents to the emergency department with increasing shortness of breath. Pneumonia -Patient recently hospitalized with multiple medical comorbidities and new consolidation on chest x-ray and oxygen requirement, -Infectious disease was consulted and Zosyn was discontinued on 06/15/2016 and vancomycin was continued. -patient will need outpatient infusion. MRSA bacteremia -on vancomycin and consult ID. --Blood cultures on 06/13 + 05/26 for MRSA, 06/15 1/4 MRSA per ID if repeat culture positive then need SAHIL. will place consult to biodiesel technology manager for SAHIL and repeat BCx. Bilateral pulmonary embolism -after Vitamin K on now INR is 2.9. -being dosed by pharmacy. Cirrhosis/hepatitis C -Abdominal ultrasound showed small amount of ascites. -Continue home lactulose CHF s/p AICD in place -Last echo done in March 2016 showed an EF of 1020 percent. Repeat echo on 06/15 showed an EF of 20%. -BNP 2326, was 2127 1 month ago -due to low BP lasix held on 06/14. reconsider restarting with improvement and okay with veneer stapler. Hypotension -after light bolus with 250 cc of NS on 06/14 and hold Lasix and lisinopril it improved. -Seems to have resolved. Due to acute renal failure we'll continue to hold Lasix and lisinopril until okay with veneer stapler. CAD -Status post stent placement -Continue aspirin -EKG showed sinus tach, no ST elevations/depressions CKD -Patient with known CKD, Cr 1.8 today baseline 1.3 -Patient back to her baseline. -avoid nephrotoxic mildly elevated troponin -due to CKD and CHF. -continue to trend. Diabetes Mellitus -Continue home Levemir -SSI Hypertension -Continue home lisinopril Lower back pain -Per patient Lidoderm and heating pad does not work and she is ambulating. -X-ray shows mild degenerative joint disease -on tramadol/acetaminophen when necessary. -Since patient does have muscle spasm on exam will start Flexeril. -caution with pain medication due to hx of IVDU. DVT prophylaxis -on warfarin Discharge Planning Second blood culture 1 out of 4 was positive. We'll need to repeat blood cultures and consult biodiesel technology manager for SAHIL. Problem Qualifiers (1) Pneumonia: Qualified Code: J18.1 - Pneumonia of right middle lobe due to infectious organism (2) COPD (chronic obstructive pulmonary disease): Qualified Code: J44.9 - Chronic obstructive pulmonary disease, unspecified COPD type Carolina Nunez MD Jun 17, 2016 12:00
[2016-06-17 12:49] LABS: BICARBONATE 26.1 MEQ/L (21.0-32.0); POTASSIUM 3.5 MEQ/L (3.5-5.1)
--- NOTE | 2016-06-17 13:48 | HHI.NPPN ---
Subjective Renal Failure: Acute Interval History Renal function is better. Reporting back pain from hospital bed. (Leah Kirkpatrick) Review of Systems Musculoskeletal MS: Pain/Stiffness (Leah Kirkpatrick) Objective Data Data 06/16/16 06/17/16 19:00 07:00 Intake Total 720 ml 720 ml Balance 720 ml 720 ml Intake Oral 720 ml 720 ml # Voids 3 6 # Bowel Movements 1 2 Vital Signs Date Time Temp Pulse Resp B/P Pulse Ox O2 Delivery O2 Flow Rate FiO2 06/17/16 08:06 97.3 88 16 121/94 100 06/17/16 04:00 97.2 82 16 121/83 95 06/17/16 00:00 97.3 85 18 109/72 96 06/16/16 20:30 Room Air 06/16/16 20:10 87 06/16/16 20:00 97.2 82 16 112/77 96 06/16/16 17:41 98 21 06/16/16 16:20 97.4 80 17 115/74 98 (Leah Kirkpatrick) -: 06/16/16 0643 06/17/16 1144 Imaging Last 72 hours Impressions Lumbar Spine X-Ray 06/16/16 0000 Signed Impressions: Service Date/Time: Thursday, June 16, 2016 15:06 - CONCLUSION: 1. Mild degenerative disc change at the L1-2 and L3-4 levels. Gerber Pimentel MD (Leah Kirkpatrick) Physical Exam General Appearance: Well Developed, Well Nourished, No Acute Distress, Comfortable ( Leah Kirkpatrick) Throat Throat Exam: Oral Mucosa [place] & Moist (Leah Kirkpatrick) Neck Neck Exam: Neck Supple (Leah Kirkpatrick) Pulmonary Resp Exam: Clear Bilaterally, Breath Sounds Equal (Leah Kirkpatrick) Cardiology CV Exam: Regular, Normal Sinus Rhythm CV Remarks ACID left chest (Leah Kirkpatrick) Gastrointestinal/Abdomen GI Exam: Soft, Non-Tender, Bowel Sounds Present (Leah Kirkpatrick) Musculoskeletal MS Exam: Joints Intact, Normal Gait, Normal Tone, Good Strength (Leah Kirkpatrick) Integumentary Skin Exam: Clear, Warm, Dry, Intact (Leah Kirkpatrick) Extremeties Extremities Exam: No Edema, Pedal Pulses Palpable (Leah Kirkpatrick) Neurologic Neuro Exam: Alert, Awake, Oriented, Speech Clear, Moving All Extremities ( Leah Kirkpatrick) Psychiatric Psych Exam: Appropriate Responses (Leah Kirkpatrick) Assessment/Plan Discussed Condition With: Patient Assessment Summary: DEL/Acute Renal Failure Electrolyte Assessment: Hypocalcemia Problem List: (1) Acute kidney injury Plan: DEL on CKD 3, baseline GFR 60, Creatinine 0.98 DEL due to sepsis, diminished renal perfusion also her blood pressure dropped on to of the month renal function continues to improve no electrolyte disorders she is non oliguric avoid nephrotoxins, renally dose medications when appropriate and monitor drug levels, she is on vancomycin SHAKEEL on hold still awaiting UA for analysis although she has not had proteinuria in the past renal panel in am she is cleared for discharge from renal perspective if IV is needed for outpatient antibiotic therapy, please try to avoid a PICC, gray and midline are okay (2) Bacteremia due to Gram-positive bacteria Plan: 3/4 bottles with + MRSA ID following, currently on vancomycin echo not suggestive of endocarditis UA still pending repeat BC in process, 1/4 positive may need SAHIL results of above determine length of antibiotic treatment (3) HTN (hypertension) Plan: BP improved SHAKEEL and lasix are held (4) CHF (congestive heart failure) Plan: 2D echo: EF 20%, she has AICD continue holding lasix, monitor fluid volume status (Leah Kirkpatrick) Plan patient was seen and examined. Renal function has improved. We will sign off at this time. (Jevon Villaseñor MD) Leah Kirkpatrick Jun 17, 2016 13:48 Jevon Villaseñor MD Jun 17, 2016 17:30
--- NOTE | 2016-06-17 14:58 | MB ---
cc: ARLENE AVENDAÑO DATE OF CONSULTATION: 06/17/2016 INDICATION Request for transesophageal echocardiogram. HISTORY OF PRESENT ILLNESS A 45-year-old female. She has history of known cardiomyopathy, congestive heart failure, last ejection fraction 20% in March 2016. She has a defibrillator, COPD, hepatitis, cirrhosis and kidney disease. She has had prior pulmonary emboli on Coumadin therapy. She states she has had some progressive shortness of breath over the past few days. She had a new partially consolidated infiltrate in the right mid lung base and was admitted for antibiotics. During the hospitalization she developed positive 3 out of 4 blood cultures for MRSA. We are consulted for consideration of transesophageal echocardiogram. PAST MEDICAL HISTORY 1. Hepatitis. 2. Cirrhosis. 3. Chronic kidney disease. 4. Hypertension. 5. Hyperlipidemia. 6. CAD. 7. CHF. 8. COPD. 9. Diabetes. MEDICATIONS Reported medications: 1. Metformin. 2. Aspirin. 3. Lantus. ALLERGIES NO KNOWN DRUG ALLERGIES. FAMILY HISTORY Denies any family history of early coronary artery disease, sudden cardiac . SOCIAL HISTORY She smoked for the past 30 years. Smokes one pack per day. Remote history of IV methylamphetamine use in 2008. Denies any alcohol. REVIEW OF SYSTEMS 12-point review of systems was performed and negative unless otherwise noted in the history of present illness. PHYSICAL EXAMINATION VITAL SIGNS: Temperature 97, pulse 88, blood pressure 121/94 mmHg. GENERAL: Alert and oriented x3, in no acute distress. HEENT: Exam shows pupils reactive to light and accommodation. Extraocular movements are intact. No elevation in jugular venous distension. No thyromegaly or lymphadenopathy. No carotid bruits. LUNGS: Clear to auscultation bilaterally. CARDIOVASCULAR: Regular rate and rhythm without murmurs, rubs or gallops. ABDOMEN: Nontender, nondistended. Good bowel sounds. No hepatosplenomegaly. EXTREMITIES: No clubbing, cyanosis or edema. Good peripheral pulses. Cranial nerves intact. Motor and sensory grossly intact. LABORATORY DATA WBC 8.8, hemoglobin 9.9, platelet count 169. Sodium 135, potassium 3.5, BUN is 12, creatinine is 1.17. ASSESSMENT 1. Bacteremia. 2. Cardiomyopathy, CHF, diabetes, hypertension. PLAN Positive blood cultures with recent pneumonia. Will plan for transesophageal echocardiogram in the a.m. Will make her n.p.o. after midnight. Course and duration of antibiotic therapy pending per infectious disease after transesophageal echocardiogram completed. MD SATURNINO Mcleod/GENE /2:31 PM /2:51 PM
[2016-06-17] MEDS: INSULIN DETEMIR 100 UNITS/ML VIAL SQ SCH (20:17)
[2016-06-17] MEDS: REMOVE OLD LIDOCAINE PATCH T-DERMAL SCH (20:25)
[2016-06-18] VITALS (7 sets, daily range): BP systolic 102–126; BP diastolic 71–84; PULSE 61–101; RESP 16–20; TEMP 96–98.5; O2SAT 92–98
[2016-06-18] MEDS: ZOLPIDEM TARTRATE 5 MG TAB PO PRN
[2016-06-18] MEDS: CYCLOBENZAPRINE HCL 10 MG TAB PO SCH ×3 (05:00→20:55)
[2016-06-18] MEDS: LEVOTHYROXINE SODIUM 50 MCG TAB PO SCH (05:07)
[2016-06-18] MEDS: INSULIN ASPART SUPPLEMENTAL SCALE SQ SCH ×4 (06:19→20:56)
[2016-06-18 06:42] LABS: INTERNATIONAL NORMALIZED RATIO 1.9 RATIO; PROTHROMBIN TIME - PATIENT 21.3 SEC (9.8-11.6)
--- NOTE | 2016-06-18 07:53 | PD.CARD.PN ---
Subjective Subjective Remarks no events Objective Medications Active Medications Cyclobenzaprine HCl (Flexeril) 10 mg Q8H PO Last administered on 06/18/16 05:00 ; Admin Dose 10 MG; Start 06/17/16 at 12:00 Miscellaneous Information SPECIFIC LAB TO BE DRAWN:VANCOMYCIN TROUGH DATE TO... ONCE ONCE .XX; Start 06/18/16 at 10:45; Stop 06/18/16 at 10:46 Zolpidem Tartrate (Ambien) 5 mg HS PRN PO Last administered on 06/18/16 00:00 ; Admin Dose 5 MG; Start 06/17/16 at 11:45 Vital Signs / I&O Vital Signs Date Time Temp Pulse Resp B/P Pulse Ox O2 Delivery O2 Flow Rate FiO2 06/18/16 04:00 97.5 89 16 102/71 95 06/18/16 00:00 97.4 94 16 110/72 98 06/17/16 21:16 82 06/17/16 20:00 97.4 88 18 113/81 97 06/17/16 19:30 Room Air 06/17/16 16:06 98.1 90 16 115/76 96 06/17/16 12:07 97.5 85 16 115/85 98 06/17/16 09:13 95 21 06/17/16 08:06 97.3 88 16 121/94 100 06/17/16 08:00 Room Air 21 06/17/16 07:54 85 I/O 06/17/16 06/17/16 06/17/16 06/18/16 06/18/16 06/18/16 07:00 15:00 23:00 07:00 15:00 23:00 Intake Total 240 ml 360 ml 480 ml 480 ml Output Total 0 ml Balance 240 ml 360 ml 480 ml 480 ml Intake Oral 240 ml 360 ml 480 ml 480 ml Output Stool Total 0 ml # Voids 3 6 4 4 # Bowel Movements 0 1 1 Physical Exam GENERAL: SKIN: Warm and dry. HEAD: Normocephalic. EYES: No scleral icterus. No injection or drainage. NECK: Supple, trachea midline. No JVD or lymphadenopathy. CARDIOVASCULAR: Regular rate and rhythm without murmurs, gallops, or rubs. RESPIRATORY: Breath sounds equal bilaterally. No accessory muscle use. GASTROINTESTINAL: Abdomen soft, non-tender, nondistended. MUSCULOSKELETAL: No cyanosis, or edema. BACK: Nontender without obvious deformity. No CVA tenderness. Laboratory Laboratory Tests Test 06/17/16 06/18/16 11:44 06:07 Erythrocyte Sedimentation Rate 6 mm/hr Sodium Level 135 MEQ/L Potassium Level 3.5 MEQ/L Chloride Level 101 MEQ/L Carbon Dioxide Level 26.1 MEQ/L Anion Gap 8 MEQ/L Blood Urea Nitrogen 12 MG/DL Creatinine 1.17 MG/DL 1.14 MG/DL Estimat Glomerular Filtration 50 ML/MIN 51 ML/MIN Rate Random Glucose 184 MG/DL Calcium Level 8.5 MG/DL Phosphorus Level 3.0 MG/DL Albumin 3.1 GM/DL Prothrombin Time 21.3 SEC Prothromb Time International 1.9 RATIO Ratio Imaging Last Impressions Lumbar Spine X-Ray 06/16/16 0000 Signed Impressions: Service Date/Time: Thursday, June 16, 2016 15:06 - CONCLUSION: 1. Mild degenerative disc change at the L1-2 and L3-4 levels. Gerber Pimentel MD Chest X-Ray 06/13/161957 Signed Impressions: Service Date/Time: Monday, June 13, 2016 20:10 - CONCLUSION: New partially consolidative infiltrate in the right midlung. Alan Burton MD Abdomen Ultrasound 06/13/16 0000 Signed Impressions: Service Date/Time: Monday, June 13, 2016 23:58 - CONCLUSION: Very small volume ascites. Alan Lam Jr., MD Assessment and Plan Assessment and Plan bactermia - SAHIL this am. NPO Andrea Rodriguez MD Jun 18, 2016 07:53
[2016-06-18] MEDS: ASPIRIN EC 81 MG TABEC PO SCH (07:57)
[2016-06-18] MEDS: SODIUM CHLORIDE 0.9% FLUSH 10 ML FLUSH IV FLUSH SCH ×2 (07:57→20:56)
[2016-06-18] MEDS: PANTOPRAZOLE SOD 40 MG DELAYED RELEASE TAB PO SCH (07:57)
[2016-06-18] MEDS: THIAMINE HCL 100 MG TAB PO SCH (08:00)
[2016-06-18] MEDS ORDERED: DEXTROSE 50% IN WATER 50 ML SYRINGE ONE (09:07)
[2016-06-18] MEDS ORDERED: MISCELLANEOUS NURSING INFORMATION XX PRN (09:15)
[2016-06-18] MEDS: LACTULOSE SYRUP 20 GM/30 ML CUP PO SCH (09:33)
[2016-06-18] MEDS: LIDOCAINE HCL 5% PATCH T-DERMAL SCH (09:33)
--- NOTE | 2016-06-18 09:41 | ETE ---
Study Study Date:06/18/2016 STUDY CONCLUSIONS SUMMARY - Left ventricle: The cavity size was dilated. Wall thickness was normal. Systolic function was severely reduced by visual assessment. Diffuse hypokinesis. - Aortic valve: No evidence of vegetation. - Mitral valve: No evidence of vegetation. Mild to moderate regurgitation. - Left atrium: The atrium was moderately dilated. No evidence of thrombus in the atrial cavity or appendage. - Right atrium: The atrium was moderately dilated. No evidence of thrombus in the atrial cavity or appendage. - Tricuspid valve: No evidence of vegetation. Moderate regurgitation. - Pulmonic valve: No evidence of vegetation. - Pulmonary arteries: Systolic pressure was mildly increased. PA peak pressure: 43mm Hg (S). If LV function is below 40, please consider prescribing an ACEI or ARB or document rationale for non-use. PROCEDURE DATA Consent: The risks, benefits, and alternatives to the procedure were explained to the patient and informed consent was obtained. Procedure: Initial setup. The patient was brought to the laboratory in the fasting state. Intravenous access was obtained. Surface ECG leads and pulse oximetric signals were monitored. Sedation. Deep sedation was administered by anesthesiology. Transesophageal echocardiography. Topical anesthesia was obtained using viscous lidocaine. A transesophageal probe was inserted by the attending supervisor telephone information. Image quality was good. Study completion: All IVs inserted during the procedure were removed. The patient tolerated the procedure well. There were no complications. Transesophageal echocardiography. 2D, complete spectral Doppler, and color Doppler. CARDIAC ANATOMY LEFT VENTRICLE: The cavity size was dilated. Wall thickness was normal. Systolic function was severely reduced by visual assessment. Diffuse hypokinesis. AORTIC VALVE: Structurally normal valve. Trileaflet; normal thickness leaflets. Cusp separation was normal. No evidence of vegetation. Doppler: No significant regurgitation. Aorta: - There was no atheroma. There was no evidence for dissection. Aortic root: The aortic root was not dilated. Ascending aorta: The ascending aorta was normal in size. Aortic arch: The aortic arch was normal in size. Descending aorta: The descending aorta was normal in size. MITRAL VALVE: Structurally normal valve. Leaflet separation was normal. No evidence of vegetation. Doppler: Mild to moderate regurgitation. LEFT ATRIUM: The atrium was moderately dilated. No evidence of thrombus in the atrial cavity or appendage. The appendage was morphologically a left appendage, multilobulated, and of normal size. Emptying velocity was normal. RIGHT VENTRICLE: The cavity size was normal. Wall thickness was normal. Pacer wire or catheter noted in right ventricle. Systolic function was normal. PULMONIC VALVE: Structurally normal valve. No evidence of vegetation. TRICUSPID VALVE: Structurally normal valve. Leaflet separation was normal. No evidence of vegetation. Doppler: Moderate regurgitation. PULMONARY ARTERY: Systolic pressure was mildly increased. RIGHT ATRIUM: The atrium was moderately dilated. Pacer wire or catheter noted in right atrium. No evidence of thrombus in the atrial cavity or appendage. The appendage was morphologically a right appendage. PERICARDIUM: There was no pericardial effusion. DOPPLER MEASUREMENTS ADULT NORMAL Main pulmonary artery Pressure, S *43 mm Hg =30 Tricuspid valve Regurgitant peak velocity 288 cm/s Peak RV-RA gradient, S 33 mm Hg Systemic veins Estimated CVP 10 mm Hg Right ventricle RV pressure, S *43 mm Hg <30 LEGEND: Mean values are shown as u=mean value. Asterisk (*) godfrey values outside specified normal range. Prepared and signed by Andrea Rodriguez [id number]
[2016-06-18] MEDS ORDERED: PHARMACY ORDERED LAB ONE (10:45)
--- NOTE | 2016-06-18 11:55 | HHI.PR ---
Subjective Remarks f/u for bacteremia patient stated she feels a lot better. she stated she was able to sleep and her back pain has improved drastically. no other complaints. Objective Vitals Vital Signs Date Time Temp Pulse Resp B/P Pulse Ox O2 Delivery O2 Flow Rate FiO2 06/18/16 08:00 Room Air 06/18/16 07:50 98.5 85 20 120/84 93 06/18/16 04:00 97.5 89 16 102/71 95 06/18/16 00:00 97.4 94 16 110/72 98 06/17/16 21:16 82 06/17/16 20:00 97.4 88 18 113/81 97 06/17/16 19:30 Room Air 06/17/16 16:06 98.1 90 16 115/76 96 06/17/16 12:07 97.5 85 16 115/85 98 I/O 06/17/16 06/17/16 06/17/16 06/18/16 06/18/16 06/18/16 07:00 15:00 23:00 07:00 15:00 23:00 Intake Total 240 ml 360 ml 480 ml 480 ml Output Total 0 ml Balance 240 ml 360 ml 480 ml 480 ml Intake Oral 240 ml 360 ml 480 ml 480 ml Output Stool Total 0 ml # Voids 3 6 4 4 # Bowel Movements 0 1 1 Result Diagram: 06/16/16 0643 06/18/16 0607 Objective Remarks GENERAL: in NAD CARDIOVASCULAR: Regular rate and rhythm without murmurs, gallops, or rubs. RESPIRATORY: Breath sounds equal bilaterally. No accessory muscle use. GASTROINTESTINAL: Abdomen soft, non-tender, nondistended. MUSCULOSKELETAL: No cyanosis, or edema. 5/5 LE strength. + paraspinal muscle are soft and relaxed. BACK: Nontender without obvious deformity. No CVA tenderness. Medications and IVs Current Medications Sodium Chloride (NS Flush) 2 ml UNSCH PRN IVF FLUSH AFTER USING IV ACCESS; Start 06/13/16 at 20:00; Stop 06/13/16 at 22:41; Status DC Ondansetron HCl (Zofran Inj) 4 mg ONCE ONCE IV Last administered on 06/13/16t 20:34; Start 06/13/16 at 20:30; Stop 06/13/16 at 20:31; Status DC Aspirin 81 mg 81 mg ONCE ONCE CHEW Last administered on 06/13/16 20:34; Start 06/13/16 at 20:30; Stop 06/13/16 at 20:31; Status DC Piperacillin Sod/ Tazobactam Sod (Zosyn 4.5 Gm Premix) 100 ml @ 200 mls/hr ONCE ONCE IV Last administered on 06/13/16 20:38; Start 06/13/16 at 20:30; Stop 06/13/16 at 20:59; Status DC Sodium Chloride (NS Flush) 2 ml UNSCH PRN IV FLUSH FLUSH AFTER USING IV ACCESS ; Start 06/13/16 at 22:30 Sodium Chloride (NS Flush) 2 ml BID IV FLUSH Last administered on 06/18/16 07: 57; Start 06/14/16 at 09:00 Acetaminophen (Tylenol) 650 mg Q4H PRN PO TEMP > 100.4 Last administered on 06:40; Start 06/13/16 at 22:30 Ondansetron HCl (Zofran Inj) 4 mg Q6H PRN IVP NAUSEA OR VOMITING; Start at 22:30 Naloxone HCl (Narcan Inj) 0.4 mg UNSCH PRN IV SEE LABEL COMMENTS; Start at 22:30 Insulin Aspart 1 1 ACHS SLIDING SCALE SQ Last administered on 06/17/16 20:17 ; Start 06/14/16 at 07:00 Piperacillin Sod/ Tazobactam Sod (Zosyn 4.5 Gm Premix) 100 ml @ 200 mls/hr Q6H IV ; Start 06/14/16 at 02:30; Stop 06/14/16 at 02:30; Status DC Morphine Sulfate 2 mg 2 mg ONCE ONCE IV PUSH ; Start 06/13/16 at 22:45; Stop at 22:47; Status DC Piperacillin Sod/ Tazobactam Sod (Zosyn 3.375 Gm Premix) 50 ml @ 100 mls/hr Q6H IV Last administered on 06/15/16 09:25; Start 06/14/16 at 02:00; Stop at 13:02; Status DC Aspirin (Ecotrin Ec) 81 mg DAILY PO Last administered on 06/18/16 07:57; Start 06/14/16 at 09:00 Furosemide (Lasix) 20 mg DAILY PO Last administered on 06/14/16 09:30; Start 06/14/16 at 09:00; Status Hold Insulin Detemir (Levemir Inj) 25 units HS SQ Last administered on 06/17/16 20: 17; Start 06/13/16 at 23:00 Lactulose (Lactulose Liq) 30 ml DAILY PO Last administered on 06/18/16 09:33; Start 06/14/16 at 09:00 Levothyroxine Sodium (Synthroid) 50 mcg DAILY@0600 PO Last administered on 06/18 05:07; Start 06/14/16 at 06:00 Lisinopril (Prinivil) 2.5 mg DAILY PO ; Start 06/14/16 at 09:00; Status Hold Warfarin Sodium (Coumadin) 4 mg DAILY@1600 PO ; Start 06/14/16 at 16:00; Status Cancel Pantoprazole Sodium (Protonix) 40 mg DAILY PO Last administered on 06/18/16 07 :57; Start 06/14/16 at 09:00 Thiamine HCl (Vitamin B1) 100 mg DAILY PO Last administered on 06/18/16 08:00 ; Start 06/14/16 at 09:00 Dextrose (D50w (Vial) Inj) 25 ml UNSCH PRN IV PUSH HYPOGLYCEMIA-SEE COMMENTS Last administered on 06/18/16 08:10; Start 06/13/16 at 22:45 Glucagon (Glucagon Inj) 1 mg UNSCH PRN OTHER HYPOGLYCEMIA-SEE COMMENTS; Start 06/13/16 at 22:45 Miscellaneous (Pill Splitter) 1 ea UNSCH PRN OTHER SEE LABEL COMMENTS; Start at 23:00 Miscellaneous Information ALL NURSING DEPARTME... UNSCH PRN OTHER SEE LABEL COMMENTS; Start 06/13/16 at 23:00; Stop 06/14/16 at 22:59; Status DC Patient Medication Teaching 1 1 ONCE ONCE OTHER ; Start 06/13/16 at 16:00; Stop 06/13/16 at 22:52; Status DC Sodium Chloride (NS 500 ml Inj) 500 ml @ 0 mls/hr Q0M ONCE IV Last administered on 06/13/16 23:02; Start 06/13/16 at 23:00; Stop 06/13/16 at 23:01 ; Status DC Albumin Human 25 gm 25 gm ONCE ONCE IV Last administered on 06/14/16 00:03; Start 06/13/16 at 23:30; Stop 06/13/16 at 23:31; Status DC Pharmacy Profile Note 0 ml @ 0 mls/hr UNSCH OTHER ; Start 06/14/16 at 00:15 Sodium Chloride (NS 250 ml Inj) 250 ml @ 250 mls/hr BOLUS ONCE IV Last administered on 06/14/16 14:46; Start 06/14/16 at 14:00; Stop 06/14/16 at 14:59 ; Status DC Warfarin Sodium (Coumadin) 4 mg DAILY@1600 PO Last administered on 06/14/16 22 :37; Start 06/14/16 at 22:15 Patient Medication Teaching 1 1 ONCE ONCE OTHER Last administered on 22:38; Start 06/14/16 at 22:15; Stop 06/14/16 at 22:16; Status DC Vancomycin HCl 1000 mg/Sodium Chloride 250 ml @ 250 mls/hr ONCE ONCE IV Last administered on 06/15/16 12:24; Start 06/15/16 at 11:55; Stop 06/15/16 at 12:54 ; Status DC Pharmacy Profile Note (Vancomycin Consult Pharmacy) 0 ml @ 0 mls/hr UNSCH OTHER ; Start 06/15/16 at 09:00 Lidocaine HCl (Lidoderm 5% Patch.12 Hr) 1 patch DAILY T-DERMAL Last administered on 06/18/16 09:33; Start 06/15/16 at 11:15 Miscellaneous Information 1 Q24H T-DERMAL Last administered on 06/17/16 20:25 ; Start 06/15/16 at 21:00 Acetaminophen (Tylenol) 650 mg ONCE ONCE PO Last administered on 06/16/16 02: 15; Start 06/16/16 at 02:15; Stop 06/16/16 at 02:16; Status DC Phytonadione 2.5 mg 2.5 mg DAILY ONCE PO Last administered on 06/16/16 11:35 ; Start 06/16/16 at 09:15; Stop 06/16/16 at 09:16; Status DC Vancomycin HCl/ Sodium Chloride (Vancomycin Inj/ NS 250 ml Inj) 250 ml @ 250 mls/hr Q24H IV Last administered on 06/17/16 11:06; Start 06/16/16 at 11:00 Miscellaneous Information SPECIFIC LAB TO BE DRAWN:VANCOMYCIN TROUGH DATE TO... ONCE ONCE .XX ; Start 06/18/16 at 10:45; Stop 06/18/16 at 10:46; Status DC Tramadol/ Acetaminophen (Ultracet 37.5-325 Mg) 1 tab Q8HR PRN PO pain Last administered on 06/18/16 00:00; Start 06/16/16 at 13:00 Cyclobenzaprine HCl (Flexeril) 10 mg Q8H PO Last administered on 06/18/16 05: 00; Start 06/17/16 at 12:00 Zolpidem Tartrate (Ambien) 5 mg HS PRN PO insomnia Last administered on 00:00; Start 06/17/16 at 11:45 Dextrose (D50w (Syr) Inj) 50 ml STK-MED ONCE .ROUTE Last administered on 09:09; Start 06/18/16 at 09:07; Stop 06/18/16 at 09:08; Status DC Miscellaneous Information 1 UNSCH PRN XX SEE LABEL COMMENTS; Start 06/18/16 at 09:15; Stop 06/21/16 at 09:14 A/P Problem List: (1) Pulmonary embolism ICD Code: I26.99 Status: Chronic (2) CAD (coronary artery disease) ICD Code: I25.10 Status: Chronic (3) DM (diabetes mellitus) ICD Code: E11.9 Status: Chronic (4) CHF (congestive heart failure) ICD Code: I50.9 Status: Chronic (5) Pneumonia ICD Code: J18.9 Status: Acute (6) COPD (chronic obstructive pulmonary disease) ICD Code: J44.9 Status: Chronic (7) HTN (hypertension) ICD Code: I10 Status: Chronic (8) HLD (hyperlipidemia) ICD Code: E78.5 Status: Chronic Assessment and Plan 45-year-old female with multiple comorbidities presents to the emergency department with increasing shortness of breath. Pneumonia -Patient recently hospitalized with multiple medical comorbidities and new consolidation on chest x-ray and oxygen requirement, -Infectious disease was consulted and Zosyn was discontinued on 06/15/2016 and vancomycin was continued. -patient will need outpatient infusion. MRSA bacteremia -on vancomycin and consult ID. --Blood cultures on 06/13 + 05/26 for MRSA, 06/15 02/25 MRSA. 06/17 blood cultures repeated. SAHIL negative for any vegetation. Bilateral pulmonary embolism -after Vitamin K on now INR is 1.9. -being dosed by pharmacy. she will get a dose today. Cirrhosis/hepatitis C -Abdominal ultrasound showed small amount of ascites. -Continue home lactulose CHF s/p AICD in place -Last echo done in March 2016 showed an EF of 1020 percent. Repeat echo on 06/15 showed an EF of 20%. -BNP 2326, was 2127 1 month ago -due to low BP lasix held on 06/14. 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 Hypotension -after light bolus with 250 cc of NS on 06/14 and hold Lasix and lisinopril it improved. -RESOLVED. restart lisinopril and Lasix. CAD -Status post stent placement -Continue aspirin -EKG showed sinus tach, no ST elevations/depressions CKD -Patient with known CKD, Cr 1.8 today baseline 1.3 -Patient back to her baseline. -avoid nephrotoxic mildly elevated troponin -due to CKD and CHF. -continue to trend. Diabetes Mellitus -Continue home Levemir -SSI Hypertension -Continue home lisinopril Lower back pain -IMPROVED with flexeril. -Per patient Lidoderm and heating pad does not work and she is ambulating. -X-ray shows mild degenerative joint disease -on tramadol/acetaminophen when necessary. -caution with pain medication due to hx of IVDU. DVT prophylaxis -on warfarin Discharge Planning need negative blood cultures. she will need outpatient infusion. per nephro AVOID PICC. Problem Qualifiers (1) Pneumonia: Qualified Code: J18.1 - Pneumonia of right middle lobe due to infectious organism (2) COPD (chronic obstructive pulmonary disease): Qualified Code: J44.9 - Chronic obstructive pulmonary disease, unspecified COPD type Carolina Nunez MD Jun 18, 2016 11:55 Carolina Nunez MD Jun 18, 2016 11:55
[2016-06-18] MEDS: VANCOMYCIN 1,000 MG/NS 250 ML IV SCH ×2 (11:56)
[2016-06-18] MEDS ORDERED: PROPOFOL 200 MG/20 ML AMP IV ONE (12:23)
[2016-06-18] MEDS: WARFARIN SOD 4 MG TAB PO SCH (16:27)
[2016-06-18] MEDS: traMADol/ACETAMINOPHEN 37.5/325 1 TAB PO PRN ×2 (16:31)
[2016-06-18] MEDS: INSULIN DETEMIR 100 UNITS/ML VIAL SQ SCH (20:55)
[2016-06-18] MEDS: REMOVE OLD LIDOCAINE PATCH T-DERMAL SCH (20:59)
[2016-06-19 00:01] VITALS: BP 118/78; PULSE 73; RESP 16; TEMP 97.2; O2SAT 92
[2016-06-19] MEDS: ZOLPIDEM TARTRATE 5 MG TAB PO PRN ×2 (00:40→22:47)
[2016-06-19] MEDS: traMADol/ACETAMINOPHEN 37.5/325 1 TAB PO PRN ×3 (00:41→20:27)
[2016-06-19] MEDS: CYCLOBENZAPRINE HCL 10 MG TAB PO SCH ×3 (05:21→20:26)
[2016-06-19] MEDS: LEVOTHYROXINE SODIUM 50 MCG TAB PO SCH (05:21)
[2016-06-19] MEDS: INSULIN ASPART SUPPLEMENTAL SCALE SQ SCH ×4 (06:03→20:27)
[2016-06-19 08:00] VITALS: BP 122/58; PULSE 96; RESP 16; TEMP 97.4; O2SAT 95
[2016-06-19] MEDS: ASPIRIN EC 81 MG TABEC PO SCH (08:15)
[2016-06-19] MEDS: THIAMINE HCL 100 MG TAB PO SCH (08:15)
[2016-06-19] MEDS: PANTOPRAZOLE SOD 40 MG DELAYED RELEASE TAB PO SCH (08:15)
[2016-06-19] MEDS: LIDOCAINE HCL 5% PATCH T-DERMAL SCH (08:15)
[2016-06-19] MEDS: LACTULOSE SYRUP 20 GM/30 ML CUP PO SCH (08:15)
[2016-06-19] MEDS: LISINOPRIL 5 MG TAB PO SCH (08:15)
[2016-06-19] MEDS: SODIUM CHLORIDE 0.9% FLUSH 10 ML FLUSH IV FLUSH SCH ×2 (08:22→20:27)
[2016-06-19 08:42] LABS: INTERNATIONAL NORMALIZED RATIO 1.7 RATIO; PROTHROMBIN TIME - PATIENT 19.5 SEC (9.8-11.6)
[2016-06-19 09:00] LABS: BICARBONATE 24.4 MEQ/L (21.0-32.0); POTASSIUM 3.9 MEQ/L (3.5-5.1)
[2016-06-19] MEDS: FUROSEMIDE 20 MG TAB PO SCH (09:38)
--- NOTE | 2016-06-19 11:02 | HHI.PR ---
Subjective Remarks Follow-up for bacteremia. Patient's very anxious to go home. She stated that her back pain has improved. Denying shortness of breathing or cough. Objective Vitals Vital Signs Date Time Temp Pulse Resp B/P Pulse Ox O2 Delivery O2 Flow Rate FiO2 06/19/16 08:00 97.4 96 16 122/58 95 06/19/16 00:01 97.2 73 16 118/78 92 06/18/16 20:00 97.3 101 20 116/82 92 06/18/16 19:45 Room Air 06/18/16 16:00 97.5 61 18 110/80 97 06/18/16 12:00 96.0 96 18 126/82 95 I/O 06/18/16 06/18/16 06/18/16 06/19/16 06/19/16 06/19/16 07:00 15:00 23:00 07:00 15:00 23:00 Intake Total 480 ml 980 ml 960 ml Output Total 0 ml Balance 480 ml 980 ml 960 ml Intake Oral 480 ml 980 ml 960 ml Output Stool Total 0 ml # Voids 4 3 5 # Bowel Movements 2 2 Result Diagram: 06/16/16 0643 06/19/16 0730 Objective Remarks GENERAL: in NAD CARDIOVASCULAR: Regular rate and rhythm without murmurs, gallops, or rubs. RESPIRATORY: Breath sounds equal bilaterally. No accessory muscle use. GASTROINTESTINAL: Abdomen soft, non-tender, nondistended. MUSCULOSKELETAL: No cyanosis, or edema. 5/5 LE strength. + paraspinal muscle are soft and relaxed. BACK: Nontender without obvious deformity. No CVA tenderness. Medications and IVs Current Medications Sodium Chloride (NS Flush) 2 ml UNSCH PRN IVF FLUSH AFTER USING IV ACCESS; Start 06/13/16 at 20:00; Stop 06/13/16 at 22:41; Status DC Ondansetron HCl (Zofran Inj) 4 mg ONCE ONCE IV Last administered on 06/13/16 20:34; Start 06/13/16 at 20:30; Stop 06/13/16 at 20:31; Status DC Aspirin 81 mg 81 mg ONCE ONCE CHEW Last administered on 06/13/16 20:34; Start 06/13/16 at 20:30; Stop 06/13/16 at 20:31; Status DC Piperacillin Sod/ Tazobactam Sod (Zosyn 4.5 Gm Premix) 100 ml @ 200 mls/hr ONCE ONCE IV Last administered on 06/13/16 20:38; Start 06/13/16 at 20:30; Stop 06/13/16 at 20:59; Status DC Sodium Chloride (NS Flush) 2 ml UNSCH PRN IV FLUSH FLUSH AFTER USING IV ACCESS ; Start 06/13/16 at 22:30 Sodium Chloride (NS Flush) 2 ml BID IV FLUSH Last administered on 06/19/16 08: 22; Start 06/14/16 at 09:00 Acetaminophen (Tylenol) 650 mg Q4H PRN PO TEMP > 100.4 Last administered on 06:40; Start 06/13/16 at 22:30 Ondansetron HCl (Zofran Inj) 4 mg Q6H PRN IVP NAUSEA OR VOMITING; Start at 22:30 Naloxone HCl (Narcan Inj) 0.4 mg UNSCH PRN IV SEE LABEL COMMENTS; Start at 22:30 Insulin Aspart 1 1 ACHS SLIDING SCALE SQ Last administered on 06/18/16 16:27 ; Start 06/14/16 at 07:00 Piperacillin Sod/ Tazobactam Sod (Zosyn 4.5 Gm Premix) 100 ml @ 200 mls/hr Q6H IV ; Start 06/14/16 at 02:30; Stop 06/14/16 at 02:30; Status DC Morphine Sulfate 2 mg 2 mg ONCE ONCE IV PUSH ; Start 06/13/16 at 22:45; Stop at 22:47; Status DC Piperacillin Sod/ Tazobactam Sod (Zosyn 3.375 Gm Premix) 50 ml @ 100 mls/hr Q6H IV Last administered on 06/15/16 09:25; Start 06/14/16 at 02:00; Stop at 13:02; Status DC Aspirin (Ecotrin Ec) 81 mg DAILY PO Last administered on 06/19/16 08:15; Start 06/14/16 at 09:00 Furosemide (Lasix) 20 mg DAILY PO Last administered on 06/19/16 09:38; Start 06/14/16 at 09:00 Insulin Detemir (Levemir Inj) 25 units HS SQ Last administered on 06/18/16 20: 55; Start 06/13/16 at 23:00 Lactulose (Lactulose Liq) 30 ml DAILY PO Last administered on 06/19/16 08:15; Start 06/14/16 at 09:00 Levothyroxine Sodium (Synthroid) 50 mcg DAILY@0600 PO Last administered on 06/19 05:21; Start 06/14/16 at 06:00 Lisinopril (Prinivil) 2.5 mg DAILY PO Last administered on 06/19/16 08:15; Start 06/14/16 at 09:00 Warfarin Sodium (Coumadin) 4 mg DAILY@1600 PO ; Start 06/14/16 at 16:00; Status Cancel Pantoprazole Sodium (Protonix) 40 mg DAILY PO Last administered on 06/19/16 08 :15; Start 06/14/16 at 09:00 Thiamine HCl (Vitamin B1) 100 mg DAILY PO Last administered on 06/19/16 08:15 ; Start 06/14/16 at 09:00 Dextrose (D50w (Vial) Inj) 25 ml UNSCH PRN IV PUSH HYPOGLYCEMIA-SEE COMMENTS Last administered on 06/18/16 08:10; Start 06/13/16 at 22:45 Glucagon (Glucagon Inj) 1 mg UNSCH PRN OTHER HYPOGLYCEMIA-SEE COMMENTS; Start 06/13/16 at 22:45 Miscellaneous (Pill Splitter) 1 ea UNSCH PRN OTHER SEE LABEL COMMENTS; Start at 23:00 Miscellaneous Information ALL NURSING DEPARTME... UNSCH PRN OTHER SEE LABEL COMMENTS; Start 06/13/16 at 23:00; Stop 06/14/16 at 22:59; Status DC Patient Medication Teaching 1 1 ONCE ONCE OTHER ; Start 06/13/16 at 16:00; Stop 06/13/16 at 22:52; Status DC Sodium Chloride (NS 500 ml Inj) 500 ml @ 0 mls/hr Q0M ONCE IV Last administered on 06/13/16 23:02; Start 06/13/16 at 23:00; Stop 06/13/16 at 23:01 ; Status DC Albumin Human 25 gm 25 gm ONCE ONCE IV Last administered on 06/14/16 00:03; Start 06/13/16 at 23:30; Stop 06/13/16 at 23:31; Status DC Pharmacy Profile Note 0 ml @ 0 mls/hr UNSCH OTHER ; Start 06/14/16 at 00:15 Sodium Chloride (NS 250 ml Inj) 250 ml @ 250 mls/hr BOLUS ONCE IV Last administered on 06/14/16 14:46; Start 06/14/16 at 14:00; Stop 06/14/16 at 14:59 ; Status DC Warfarin Sodium (Coumadin) 4 mg DAILY@1600 PO Last administered on 06/18/16 16 :27; Start 06/14/16 at 22:15 Patient Medication Teaching 1 1 ONCE ONCE OTHER Last administered on 22:38; Start 06/14/16 at 22:15; Stop 06/14/16 at 22:16; Status DC Vancomycin HCl 1000 mg/Sodium Chloride 250 ml @ 250 mls/hr ONCE ONCE IV Last administered on 06/15/16 12:24; Start 06/15/16 at 11:55; Stop 06/15/16 at 12:54 ; Status DC Pharmacy Profile Note (Vancomycin Consult Pharmacy) 0 ml @ 0 mls/hr UNSCH OTHER ; Start 06/15/16 at 09:00 Lidocaine HCl (Lidoderm 5% Patch.12 Hr) 1 patch DAILY T-DERMAL Last administered on 06/19/16 08:15; Start 06/15/16 at 11:15 Miscellaneous Information 1 Q24H T-DERMAL Last administered on 06/18/16 20:59 ; Start 06/15/16 at 21:00 Acetaminophen (Tylenol) 650 mg ONCE ONCE PO Last administered on 06/16/16 02: 15; Start 06/16/16 at 02:15; Stop 06/16/16 at 02:16; Status DC Phytonadione 2.5 mg 2.5 mg DAILY ONCE PO Last administered on 06/16/16 11:35 ; Start 06/16/16 at 09:15; Stop 06/16/16 at 09:16; Status DC Vancomycin HCl/ Sodium Chloride (Vancomycin Inj/ NS 250 ml Inj) 250 ml @ 250 mls/hr Q24H IV Last administered on 06/18/16 11:56; Start 06/16/16 at 11:00; Stop 06/18/16 at 12:08; Status DC Miscellaneous Information SPECIFIC LAB TO BE DRAWN:VANCOMYCIN TROUGH DATE TO... ONCE ONCE .XX ; Start 06/18/16 at 10:45; Stop 06/18/16 at 10:46; Status DC Tramadol/ Acetaminophen (Ultracet 37.5-325 Mg) 1 tab Q8HR PRN PO pain Last administered on 06/19/16 09:38; Start 06/16/16 at 13:00 Cyclobenzaprine HCl (Flexeril) 10 mg Q8H PO Last administered on 06/19/16 05: 21; Start 06/17/16 at 12:00 Zolpidem Tartrate (Ambien) 5 mg HS PRN PO insomnia Last administered on 00:40; Start 06/17/16 at 11:45 Dextrose (D50w (Syr) Inj) 50 ml STK-MED ONCE .ROUTE Last administered on 09:09; Start 06/18/16 at 09:07; Stop 06/18/16 at 09:08; Status DC Miscellaneous Information 1 1 UNSCH PRN XX SEE LABEL COMMENTS; Start 06/18/16 at 09:15; Stop 06/21/16 at 09:14 Vancomycin HCl/ Sodium Chloride (Vancomycin Inj/ NS 500 ml Inj) 515 ml @ 250 mls/hr Q24H IV ; Start 06/19/16 at 11:00 Miscellaneous Information SPECIFIC LAB TO BE DRAWN:VANCOMYCIN TROUGH DATE TO... ONCE ONCE .XX ; Start 06/21/16 at 10:45; Stop 06/21/16 at 10:46 Propofol (Diprivan 200 Mg/20 ml Inj) 20 mg STK-MED ONCE IV ; Start 06/18/16 at 12:23; Stop 06/18/16 at 12:24; Status DC A/P Problem List: (1) Pulmonary embolism ICD Code: I26.99 Status: Chronic (2) CAD (coronary artery disease) ICD Code: I25.10 Status: Chronic (3) DM (diabetes mellitus) ICD Code: E11.9 Status: Chronic (4) CHF (congestive heart failure) ICD Code: I50.9 Status: Chronic (5) Pneumonia ICD Code: J18.9 Status: Acute (6) COPD (chronic obstructive pulmonary disease) ICD Code: J44.9 Status: Chronic (7) HTN (hypertension) ICD Code: I10 Status: Chronic (8) HLD (hyperlipidemia) ICD Code: E78.5 Status: Chronic Assessment and Plan 45-year-old female with multiple comorbidities presents to the emergency department with increasing shortness of breath. Pneumonia -Patient recently hospitalized with multiple medical comorbidities and new consolidation on chest x-ray and oxygen requirement, -Infectious disease was consulted and Zosyn was discontinued on 06/15/2016 and vancomycin was continued. -patient will need outpatient infusion. MRSA bacteremia -on vancomycin and consult ID. --Blood cultures on 06/13 + 05/26 for MRSA, 06/15 02/25 MRSA. 06/17 blood cultures repeated. SAHIL negative for any vegetation. Bilateral pulmonary embolism -after Vitamin K on now INR is 1.7. -being dosed by pharmacy. she will get a dose today. Cirrhosis/hepatitis C -Abdominal ultrasound showed small amount of ascites. -Continue home lactulose CHF s/p AICD in place -Last echo done in March 2016 showed an EF of 1020 percent. Repeat echo on 06/15 showed an EF of 20%. -BNP 2326, was 2127 1 month ago -due to low BP lasix held on 06/14. 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 Hypotension -after light bolus with 250 cc of NS on 06/14 and held Lasix and lisinopril it improved. -RESOLVED. -Patient was started on Lasix and lisinopril on 06/18/2016 and blood pressure is doing well. CAD -Status post stent placement -Continue aspirin -EKG showed sinus tach, no ST elevations/depressions CKD -Patient with known CKD, Cr 1.8 today baseline 1.3 -Patient back to her baseline. -avoid nephrotoxic mildly elevated troponin -due to CKD and CHF. -continue to trend. Diabetes Mellitus -She has hypoglycemic so will stop Levemir. She is on 25 units a day. -SSI Hypertension -Continue home lisinopril Lower back pain -IMPROVED with flexeril. -Per patient Lidoderm and heating pad does not work and she is ambulating. -X-ray shows mild degenerative joint disease -on tramadol/acetaminophen when necessary. -caution with pain medication due to hx of IVDU. DVT prophylaxis -on warfarin Discharge Planning need negative blood cultures. she will need outpatient infusion. per nephro AVOID PICC. Problem Qualifiers (1) Pneumonia: Qualified Code: J18.1 - Pneumonia of right middle lobe due to infectious organism (2) COPD (chronic obstructive pulmonary disease): Qualified Code: J44.9 - Chronic obstructive pulmonary disease, unspecified COPD type Carolina Nunez MD Jun 19, 2016 11:02
[2016-06-19 12:00] VITALS: BP 107/69; PULSE 99; RESP 18; TEMP 97.4; O2SAT 96
[2016-06-19] MEDS: VANCOMYCIN INJ 1,500 MG in SODIUM CHLORID 0.9% 500 ML INJ 500 ML IV SCH (12:06)
--- NOTE | 2016-06-19 15:43 | HHI.IDPN ---
Note Infectious Disease Note Patient is sleepy. No complaints. Afebrile. Scant cough. Not coughing up sputum. 2D ECHO reveal EF of 20% unchanged. SAHIL without vegetations. Denies chills. Repeat blood culture negative day 2. PAST MEDICAL HISTORY 1. Hypertension. 2. COPD. 3. Insulin dependent diabetes mellitus. 4. Coronary artery disease. 5. Hyperlipidemia. 6. Cirrhosis. 7. Chronic kidney disease. 8. Hypertension C. 9. Cholecystectomy. 10. Tubal ligation. 11. AICD. SOCIAL HISTORY The patient smokes eight cigarettes a day. Denies alcohol use. Denies illicit drug use. FAMILY HISTORY Noncontributory. Objective: Vital Signs Date Time Temp Pulse Resp B/P Pulse Ox O2 Delivery O2 Flow Rate FiO2 06/19/16 12:00 97.4 99 18 107/69 96 06/19/16 08:00 97.4 96 16 122/58 95 06/19/16 00:01 97.2 73 16 118/78 92 06/18/16 20:00 97.3 101 20 116/82 92 06/18/16 19:45 Room Air 06/18/16 16:00 97.5 61 18 110/80 97 06/18/16 06/18/16 06/19/16 15:00 23:00 07:00 Intake Total 980 ml 960 ml Balance 980 ml 960 ml Intake Oral 980 ml 960 ml # Voids 3 5 # Bowel Movements 2 2 Laboratory Tests Test 06/18/16 06/19/16 06:07 07:30 Creatinine 1.14 MG/DL 1.05 MG/DL Estimat Glomerular Filtration 51 ML/MIN 56 ML/MIN Rate Sodium Level 138 MEQ/L Potassium Level 3.9 MEQ/L Chloride Level 105 MEQ/L Carbon Dioxide Level 24.4 MEQ/L Anion Gap 9 MEQ/L Blood Urea Nitrogen 13 MG/DL Random Glucose 44 MG/DL Calcium Level 8.7 MG/DL Microbiology Date/Time Procedure Status Source Growth 06/17/16 20:00 Aerobic Blood Culture - Preliminary Resulted Blood Peripheral NO GROWTH IN 2 DAYS 06/17/16 20:00 Anaerobic Blood Culture - Preliminary Resulted Blood Peripheral NO GROWTH IN 2 DAYS 06/17/16 20:16 Aerobic Blood Culture - Preliminary Resulted Blood Peripheral NO GROWTH IN 2 DAYS 06/17/16 20:16 Anaerobic Blood Culture - Preliminary Resulted Blood Peripheral NO GROWTH IN 2 DAYS Microbiology Date/Time Procedure Status Source Growth 06/13/16 23:30 Aerobic Blood Culture - Final Resulted Blood Peripheral S. Aureus Mrsa 06/13/16 23:30 Anaerobic Blood Culture - Preliminary Resulted Blood Peripheral NO GROWTH IN 3 DAYS 06/13/16 23:35 Aerobic Blood Culture - Final Complete Blood Peripheral S. Aureus Mrsa 06/13/16 23:35 Anaerobic Blood Culture - Final Complete S. Aureus Mrsa 06/15/16 17:59 Aerobic Blood Culture - Preliminary Resulted Blood Peripheral NO GROWTH IN 1 DAY 06/15/16 17:59 Anaerobic Blood Culture - Preliminary Resulted Blood Peripheral NO GROWTH IN 1 DAY 06/15/16 18:14 Aerobic Blood Culture - Preliminary Resulted Blood Peripheral NO GROWTH IN 1 DAY 06/15/16 18:14 Anaerobic Blood Culture - Preliminary Resulted Blood Peripheral NO GROWTH IN 1 DAY IMAGING: Lumbar Spine X-Ray 06/16/16 0000 Signed Impressions: Service Date/Time: Thursday, June 16, 2016 15:06 - CONCLUSION: 1. Mild degenerative disc change at the L1-2 and L3-4 levels. Gerber Pimentel MD Chest X-Ray 06/13/161957 Signed Impressions: Service Date/Time: Monday, June 13, 2016 20:10 - CONCLUSION: New partially consolidative infiltrate in the right midlung. Alan Burton MD Abdomen Ultrasound 06/13/16 0000 Signed Impressions: Service Date/Time: Monday, June 13, 2016 23:58 - CONCLUSION: Very small volume ascites. Alan Lam Jr., MD PHYSICAL EXAMINATION GENERAL: No acute distress. She is awake and alert and oriented. HEENT: Head is atraumatic. Extraocular movements grossly intact, pupils reactive to light without icterus. Oropharynx very poor dentition with multiple erosive teeth at both upper and lower. No thrush. NECK: Supple without adenopathy. LUNGS: Decreased breath sounds with slight basilar rhonchi. Slight wheezing. HEART: 2/6 systolic murmur at the left sternal border. CHEST: AICD in place at the left upper chest which has no tenderness and no swelling or erythema. ABDOMEN: Bowel sounds present, soft, non tender. EXTREMITIES: No clubbing or cyanosis or edema. SKIN: No rash. NEURO: Nonfocal. PSYCHE: Calm and cooperative. IMPRESSION 1. MRSA bacteremia in a patient with AICD device. Possible source includes device infection versus pneumonia. SAHIL without evidence of endocarditis. 2. Pneumonia. The patient noted to have partially consolidative infiltrate in the right lung. 3. Sepsis on admission, elevated heart rate, elevated white blood cell count, and positive blood culture with source likely pneumonia. RECOMMENDATIONS 1. Continue vancomycin. 2. Monitor repeat blood culture. 3. CXR to evaluate lung infiltrate. Plan on placing a PIC line on Wednesday 06/21 and discharge on IV vancomycin x 4 weeks antibiotic if blood culture is negative. Manny Stack MD Jun 19, 2016 15:43
[2016-06-19 16:00] VITALS: BP 101/67; PULSE 97; RESP 18; TEMP 97.6; O2SAT 98
--- NOTE | 2016-06-19 16:39 | RADRPT ---
EXAM DATE/TIME: 06/19/2016 16:18 [facility] COMPARISON: CHEST SINGLE AP, June 13, 2016, 20:10. INDICATIONS : Shortness of breath. Right lung infiltrate. MEDICAL HISTORY : Hypertension. renal failure, diabetes, deep vein thrombosis SURGICAL HISTORY : Pacemaker. Cholecystectomy. Tubal ligation. section ENCOUNTER: Subsequent ACUITY: 1 week PAIN SCORE: 6/10 LOCATION: Bilateral chest FINDINGS: AP portable erect view of the chest was obtained and again demonstrates left subclavian transvenous p acer in place. The heart size remains mildly enlarged. Hazy opacity is present in the right midlung w hich is ildly more diffuse than on the prior study. There is no consolidation the left lung. There is no effusion. The bony thorax remains intact and there are multiple overlying electrocardiogram leads . CONCLUSION: 1. The right mid lung infiltrate is mildly more diffuse. 2. Mild cardiomegaly remains. Gerber Pimentel MD on June 19, 2016 at 16:36 Board Certified Radiologist. This report was verified electronically.
[2016-06-19] MEDS: WARFARIN SOD 4 MG TAB PO SCH (16:41)
[2016-06-19 20:00] VITALS: BP 123/80; PULSE 99; RESP 16; TEMP 97.7; O2SAT 96
[2016-06-19 20:20] VITALS: PULSE 103
[2016-06-19] MEDS: REMOVE OLD LIDOCAINE PATCH T-DERMAL SCH (20:28)
[2016-06-20] VITALS (7 sets, daily range): BP systolic 102–119; BP diastolic 68–81; PULSE 92–107; RESP 16–20; TEMP 96–98.1; O2SAT 95–100
[2016-06-20] MEDS: LEVOTHYROXINE SODIUM 50 MCG TAB PO SCH (05:07)
[2016-06-20] MEDS: traMADol/ACETAMINOPHEN 37.5/325 1 TAB PO PRN ×3 (05:07→22:18)
[2016-06-20] MEDS: CYCLOBENZAPRINE HCL 10 MG TAB PO SCH ×3 (05:07→21:36)
[2016-06-20] MEDS: INSULIN ASPART SUPPLEMENTAL SCALE SQ SCH ×4 (06:48→21:00)
[2016-06-20] MEDS: LIDOCAINE HCL 5% PATCH T-DERMAL SCH (09:00)
[2016-06-20] MEDS: LACTULOSE SYRUP 20 GM/30 ML CUP PO SCH (10:03)
[2016-06-20] MEDS: THIAMINE HCL 100 MG TAB PO SCH (10:04)
[2016-06-20] MEDS: FUROSEMIDE 20 MG TAB PO SCH (10:04)
[2016-06-20] MEDS: ASPIRIN EC 81 MG TABEC PO SCH (10:04)
[2016-06-20] MEDS: PANTOPRAZOLE SOD 40 MG DELAYED RELEASE TAB PO SCH (10:04)
[2016-06-20] MEDS: SODIUM CHLORIDE 0.9% FLUSH 10 ML FLUSH IV FLUSH SCH ×2 (10:05→21:36)
[2016-06-20] MEDS: LISINOPRIL 5 MG TAB PO SCH (10:05)
[2016-06-20 10:17] LABS: HEMATOCRIT 33.4 % (35.0-46.0); MEAN CELL VOLUME 73.5 FL (80.0-100.0); MEAN CORPUSCULAR HEMOGLOBIN 22.6 PG (27.0-34.0); MEAN CORPUSCULAR HGB CONC 30.7 % (32.0-36.0); PLATELET COUNT 191 TH/MM3 (150-450); RED BLOOD COUNT 4.54 MIL/MM3 (4.00-5.30); WHITE BLOOD COUNT 5.8 TH/MM3 (4.0-11.0)
[2016-06-20 10:22] LABS: INTERNATIONAL NORMALIZED RATIO 2.6 RATIO; PROTHROMBIN TIME - PATIENT 29.4 SEC (9.8-11.6)
[2016-06-20 10:25] LABS: REVIEW FLAG FINAL
[2016-06-20 10:58] LABS: BICARBONATE 21.8 MEQ/L (21.0-32.0); POTASSIUM 4.3 MEQ/L (3.5-5.1)
[2016-06-20] MEDS: VANCOMYCIN INJ 1,500 MG in SODIUM CHLORID 0.9% 500 ML INJ 500 ML IV SCH (12:49)
[2016-06-20] MEDS ORDERED: WARFARIN SOD 2 MG TAB PO ONE (16:00)
--- NOTE | 2016-06-20 17:08 | HHI.PR ---
Subjective Remarks f/u for MRSA bacteremia patient is very anxious to do home. Denied any fever. no other complaints. Objective Vitals Vital Signs Date Time Temp Pulse Resp B/P Pulse Ox O2 Delivery O2 Flow Rate FiO2 06/20/16 14:05 20 06/20/16 12:00 98.1 104 16 102/68 96 06/20/16 11:00 96 Room Air 06/20/16 08:00 96.0 107 18 116/81 96 06/20/16 04:00 97.6 103 18 119/76 96 06/20/16 00:00 97.5 101 18 106/75 96 06/19/16 20:20 103 06/19/16 20:00 97.7 99 16 123/80 96 06/19/16 19:45 Room Air I/O 06/19/16 06/19/16 06/19/16 06/20/16 06/20/16 06/20/16 07:00 15:00 23:00 07:00 15:00 23:00 Intake Total 240 ml 360 ml 240 ml Balance 240 ml 360 ml 240 ml Intake Oral 240 ml 360 ml 240 ml # Voids 5 2 2 # Bowel Movements 0 1 0 Result Diagram: 06/20/1692206/20/1623 Objective Remarks GENERAL: in NAD CARDIOVASCULAR: Regular rate and rhythm without murmurs, gallops, or rubs. RESPIRATORY: Breath sounds equal bilaterally. No accessory muscle use. GASTROINTESTINAL: Abdomen soft, non-tender, nondistended. MUSCULOSKELETAL: No cyanosis, or edema. 5/5 LE strength. + paraspinal muscle are soft and relaxed. BACK: Nontender without obvious deformity. No CVA tenderness. Medications and IVs Current Medications Sodium Chloride (NS Flush) 2 ml UNSCH PRN IVF FLUSH AFTER USING IV ACCESS; Start 06/13/16 at 20:00; Stop 06/13/16 at 22:41; Status DC Ondansetron HCl (Zofran Inj) 4 mg ONCE ONCE IV Last administered on 06/13/16 20:34; Start 06/13/16 at 20:30; Stop 06/13/16 at 20:31; Status DC Aspirin 81 mg 81 mg ONCE ONCE CHEW Last administered on 06/13/16 20:34; Start 06/13/16 at 20:30; Stop 06/13/16 at 20:31; Status DC Piperacillin Sod/ Tazobactam Sod (Zosyn 4.5 Gm Premix) 100 ml @ 200 mls/hr ONCE ONCE IV Last administered on 06/13/16 20:38; Start 06/13/16 at 20:30; Stop 06/13/16 at 20:59; Status DC Sodium Chloride (NS Flush) 2 ml UNSCH PRN IV FLUSH FLUSH AFTER USING IV ACCESS ; Start 06/13/16 at 22:30 Sodium Chloride (NS Flush) 2 ml BID IV FLUSH Last administered on 06/20/16 10: 05; Start 06/14/16 at 09:00 Acetaminophen (Tylenol) 650 mg Q4H PRN PO TEMP > 100.4 Last administered on 06:40; Start 06/13/16 at 22:30 Ondansetron HCl (Zofran Inj) 4 mg Q6H PRN IVP NAUSEA OR VOMITING; Start at 22:30 Naloxone HCl (Narcan Inj) 0.4 mg UNSCH PRN IV SEE LABEL COMMENTS; Start at 22:30 Insulin Aspart 1 1 ACHS SLIDING SCALE SQ Last administered on 06/20/16 11:57 ; Start 06/14/16 at 07:00 Piperacillin Sod/ Tazobactam Sod (Zosyn 4.5 Gm Premix) 100 ml @ 200 mls/hr Q6H IV ; Start 06/14/16 at 02:30; Stop 06/14/16 at 02:30; Status DC Morphine Sulfate 2 mg 2 mg ONCE ONCE IV PUSH ; Start 06/13/16 at 22:45; Stop at 22:47; Status DC Piperacillin Sod/ Tazobactam Sod (Zosyn 3.375 Gm Premix) 50 ml @ 100 mls/hr Q6H IV Last administered on 06/15/16 09:25; Start 06/14/16 at 02:00; Stop at 13:02; Status DC Aspirin (Ecotrin Ec) 81 mg DAILY PO Last administered on 06/20/16 10:04; Start 06/14/16 at 09:00 Furosemide (Lasix) 20 mg DAILY PO Last administered on 06/20/16 10:04; Start 06/14/16 at 09:00 Insulin Detemir (Levemir Inj) 25 units HS SQ Last administered on 06/18/16 20: 55; Start 06/13/16 at 23:00; Stop 06/19/16 at 11:00; Status DC Lactulose (Lactulose Liq) 30 ml DAILY PO Last administered on 06/20/16 10:03; Start 06/14/16 at 09:00 Levothyroxine Sodium (Synthroid) 50 mcg DAILY@0600 PO Last administered on 06/20 05:07; Start 06/14/16 at 06:00 Lisinopril (Prinivil) 2.5 mg DAILY PO Last administered on 06/20/16 10:05; Start 06/14/16 at 09:00 Warfarin Sodium (Coumadin) 4 mg DAILY@1600 PO ; Start 06/14/16 at 16:00; Status Cancel Pantoprazole Sodium (Protonix) 40 mg DAILY PO Last administered on 06/20/16 10 :04; Start 06/14/16 at 09:00 Thiamine HCl (Vitamin B1) 100 mg DAILY PO Last administered on 06/20/16 10:04 ; Start 06/14/16 at 09:00 Dextrose (D50w (Vial) Inj) 25 ml UNSCH PRN IV PUSH HYPOGLYCEMIA-SEE COMMENTS Last administered on 06/18/16 08:10; Start 06/13/16 at 22:45 Glucagon (Glucagon Inj) 1 mg UNSCH PRN OTHER HYPOGLYCEMIA-SEE COMMENTS; Start 06/13/16 at 22:45 Miscellaneous (Pill Splitter) 1 ea UNSCH PRN OTHER SEE LABEL COMMENTS; Start at 23:00 Miscellaneous Information ALL NURSING DEPARTME... UNSCH PRN OTHER SEE LABEL COMMENTS; Start 06/13/16 at 23:00; Stop 06/14/16 at 22:59; Status DC Patient Medication Teaching 1 1 ONCE ONCE OTHER ; Start 06/13/16 at 16:00; Stop 06/13/16 at 22:52; Status DC Sodium Chloride (NS 500 ml Inj) 500 ml @ 0 mls/hr Q0M ONCE IV Last administered on 06/13/16 23:02; Start 06/13/16 at 23:00; Stop 06/13/16 at 23:01 ; Status DC Albumin Human 25 gm 25 gm ONCE ONCE IV Last administered on 06/14/16 00:03; Start 06/13/16 at 23:30; Stop 06/13/16 at 23:31; Status DC Pharmacy Profile Note 0 ml @ 0 mls/hr UNSCH OTHER ; Start 06/14/16 at 00:15 Sodium Chloride (NS 250 ml Inj) 250 ml @ 250 mls/hr BOLUS ONCE IV Last administered on 06/14/16 14:46; Start 06/14/16 at 14:00; Stop 06/14/16 at 14:59 ; Status DC Warfarin Sodium (Coumadin) 4 mg DAILY@1600 PO Last administered on 06/19/16 16 :41; Start 06/14/16 at 22:15; Status Hold Patient Medication Teaching 1 1 ONCE ONCE OTHER Last administered on 22:38; Start 06/14/16 at 22:15; Stop 06/14/16 at 22:16; Status DC Vancomycin HCl 1000 mg/Sodium Chloride 250 ml @ 250 mls/hr ONCE ONCE IV Last administered on 06/15/16 12:24; Start 06/15/16 at 11:55; Stop 06/15/16 at 12:54 ; Status DC Pharmacy Profile Note (Vancomycin Consult Pharmacy) 0 ml @ 0 mls/hr UNSCH OTHER ; Start 06/15/16 at 09:00 Lidocaine HCl (Lidoderm 5% Patch.12 Hr) 1 patch DAILY T-DERMAL Last administered on 06/19/16 08:15; Start 06/15/16 at 11:15 Miscellaneous Information 1 Q24H T-DERMAL Last administered on 06/19/16 20:28 ; Start 06/15/16 at 21:00 Acetaminophen (Tylenol) 650 mg ONCE ONCE PO Last administered on 06/16/16 02: 15; Start 06/16/16 at 02:15; Stop 06/16/16 at 02:16; Status DC Phytonadione 2.5 mg 2.5 mg DAILY ONCE PO Last administered on 06/16/16 11:35 ; Start 06/16/16 at 09:15; Stop 06/16/16 at 09:16; Status DC Vancomycin HCl/ Sodium Chloride (Vancomycin Inj/ NS 250 ml Inj) 250 ml @ 250 mls/hr Q24H IV Last administered on 06/18/16 11:56; Start 06/16/16 at 11:00; Stop 06/18/16 at 12:08; Status DC Miscellaneous Information SPECIFIC LAB TO BE DRAWN:VANCOMYCIN TROUGH DATE TO... ONCE ONCE .XX ; Start 06/18/16 at 10:45; Stop 06/18/16 at 10:46; Status DC Tramadol/ Acetaminophen (Ultracet 37.5-325 Mg) 1 tab Q8HR PRN PO pain Last administered on 06/20/16 13:05; Start 06/16/16 at 13:00 Cyclobenzaprine HCl (Flexeril) 10 mg Q8H PO Last administered on 06/20/16 11: 58; Start 06/17/16 at 12:00 Zolpidem Tartrate (Ambien) 5 mg HS PRN PO insomnia Last administered on 22:47; Start 06/17/16 at 11:45 Dextrose (D50w (Syr) Inj) 50 ml STK-MED ONCE .ROUTE Last administered on 09:09; Start 06/18/16 at 09:07; Stop 06/18/16 at 09:08; Status DC Miscellaneous Information 1 1 UNSCH PRN XX SEE LABEL COMMENTS; Start 06/18/16 at 09:15; Stop 06/21/16 at 09:14 Vancomycin HCl/ Sodium Chloride (Vancomycin Inj/ NS 500 ml Inj) 515 ml @ 250 mls/hr Q24H IV Last administered on 06/20/16 12:49; Start 06/19/16 at 11:00 Miscellaneous Information SPECIFIC LAB TO BE DRAWN:VANCOMYCIN TROUGH DATE TO... ONCE ONCE .XX ; Start 06/21/16 at 10:45; Stop 06/21/16 at 10:46 Propofol (Diprivan 200 Mg/20 ml Inj) 20 mg STK-MED ONCE IV ; Start 06/18/16 at 12:23; Stop 06/18/16 at 12:24; Status DC Warfarin Sodium (Coumadin) 2 mg ONCE ONCE PO ; Start 06/20/16 at 16:00; Stop at 16:01; Status DC A/P Problem List: (1) Pulmonary embolism ICD Code: I26.99 Status: Chronic (2) CAD (coronary artery disease) ICD Code: I25.10 Status: Chronic (3) DM (diabetes mellitus) ICD Code: E11.9 Status: Chronic (4) CHF (congestive heart failure) ICD Code: I50.9 Status: Chronic (5) Pneumonia ICD Code: J18.9 Status: Acute (6) COPD (chronic obstructive pulmonary disease) ICD Code: J44.9 Status: Chronic (7) HTN (hypertension) ICD Code: I10 Status: Chronic (8) HLD (hyperlipidemia) ICD Code: E78.5 Status: Chronic Assessment and Plan 45-year-old female with multiple comorbidities presents to the emergency department with increasing shortness of breath. Pneumonia -Patient recently hospitalized with multiple medical comorbidities and new consolidation on chest x-ray and oxygen requirement, -Infectious disease was consulted and Zosyn was discontinued on 06/15/2016 and vancomycin was continued. -patient will need outpatient infusion. MRSA bacteremia -on vancomycin and consult ID. --Blood cultures on 06/13 + 05/26 for MRSA, 06/15 02/25 MRSA. 06/17 blood cultures so far negative. SAHIL negative for any vegetation. -per ID if blood cultures negative on Wednesday then place PICC line for outpatient infusion. Bilateral pulmonary embolism -s/p Vitamin K -INR 2.6 Cirrhosis/hepatitis C -Abdominal ultrasound showed small amount of ascites. -Continue home lactulose CHF s/p AICD in place -Last echo done in March 2016 showed an EF of 1020 percent. Repeat echo on 06/15 showed an EF of 20%. -BNP 2326, was 2127 1 month ago -due to low BP lasix held on 06/14. restarted lasix and doing well. Hypotension -after light bolus with 250 cc of NS on 06/14 and held Lasix and lisinopril it improved. -RESOLVED. -Patient was started on Lasix and lisinopril on 06/18/2016 and blood pressure is doing well. CAD -Status post stent placement -Continue aspirin -EKG showed sinus tach, no ST elevations/depressions CKD -Patient with known CKD, Cr 1.8 today baseline 1.3 -Patient back to her baseline. -avoid nephrotoxic mildly elevated troponin -due to CKD and CHF. -continue to trend. Diabetes Mellitus -She has been hypoglycemic so will stop Levemir. She is on 25 units a day at home. -SSI Hypertension -Continue home lisinopril Lower back pain -IMPROVED with flexeril. -Per patient Lidoderm and heating pad does not work and she is ambulating. -X-ray shows mild degenerative joint disease -on tramadol/acetaminophen when necessary. -caution with pain medication due to hx of IVDU. DVT prophylaxis -on warfarin Discharge Planning If blood cultures are negative on Wednesday place PICC and patient can be d/c on vancomycin for 4 weeks. Problem Qualifiers (1) Pneumonia: Qualified Code: J18.1 - Pneumonia of right middle lobe due to infectious organism (2) COPD (chronic obstructive pulmonary disease): Qualified Code: J44.9 - Chronic obstructive pulmonary disease, unspecified COPD type Carolina Nunez MD Jun 20, 2016 17:08
[2016-06-20] MEDS: REMOVE OLD LIDOCAINE PATCH T-DERMAL SCH (21:00)
[2016-06-20] MEDS: ZOLPIDEM TARTRATE 5 MG TAB PO PRN (21:36)
[2016-06-21] VITALS (8 sets, daily range): BP systolic 113–159; BP diastolic 74–87; PULSE 68–110; RESP 18–20; TEMP 97.2–98.9; O2SAT 96–99
[2016-06-21] MEDS: CYCLOBENZAPRINE HCL 10 MG TAB PO SCH ×3 (04:13→20:42)
[2016-06-21] MEDS: LEVOTHYROXINE SODIUM 50 MCG TAB PO SCH (06:08)
[2016-06-21] MEDS: traMADol/ACETAMINOPHEN 37.5/325 1 TAB PO PRN ×3 (06:09→22:47)
[2016-06-21] MEDS: INSULIN ASPART SUPPLEMENTAL SCALE SQ SCH ×4 (06:09→20:44)
[2016-06-21] MEDS: LIDOCAINE HCL 5% PATCH T-DERMAL SCH (09:00)
--- NOTE | 2016-06-21 09:10 | HHI.PR ---
Subjective Remarks This is a pleasant 45 y/o Female with CHF, EF 15-20%, status post AICD, COPD, Hepatitis C, Cirrhosis, CKD III, Bilateral PEs, diagnosed March 2016, on Coumadin, who came to ER with SOB, SAHIL - EF 20% . mild-mod MR. mod TR. no vegetations. air pollution specialist Signed off the case. ID specialist following with Diagnosis of MRSA Bacteremia, SAHIL no evidence of Endocarditis Pneumonia partially consolidative infiltrate in the right lung, Sepsis on admission, recommended to get PICC line and discharge on IV Vancomycin for 4 weeks. if blood culture negative. states she has abdominal discomfort and some distention, is having good bowel movements will follow on Simethicone, PPIs and Carafate for GERD. Objective Vital Signs Date Time Temp Pulse Resp B/P Pulse Ox O2 Delivery O2 Flow Rate FiO2 06/21/16 04:00 97.6 86 18 113/74 97 06/21/16 00:30 107 06/21/16 00:00 97.6 106 20 116/76 96 06/20/16 21:30 Room Air 06/20/16 20:00 97.1 98 20 119/81 100 06/20/16 18:38 102 06/20/16 16:00 97.7 92 16 113/78 95 06/20/16 14:05 20 06/20/16 12:00 98.1 104 16 102/68 96 06/20/16 11:00 96 Room Air I/O 06/20/16 06/20/16 06/20/16 06/21/16 06/21/16 06/21/16 07:00 15:00 23:00 07:00 15:00 23:00 Intake Total 240 ml 820 ml 1000 ml 600 ml Balance 240 ml 820 ml 1000 ml 600 ml Intake Oral 240 ml 820 ml 600 ml IV Total 1000 ml # Voids 2 6 2 # Bowel Movements 0 1 Result Diagram: 06/20/1623 06/20/1623 Imaging Last Impressions Chest X-Ray 06/19/16 0000 Signed Impressions: Service Date/Time: Sunday, June 19, 2016 16:18 - CONCLUSION: 1. The right mid lung infiltrate is mildly more diffuse. 2. Mild cardiomegaly remains. Gerber Pimentel MD Lumbar Spine X-Ray 06/16/16 0000 Signed Impressions: Service Date/Time: Thursday, June 16, 2016 15:06 - CONCLUSION: 1. Mild degenerative disc change at the L1-2 and L3-4 levels. Gerber Pimentel MD Abdomen Ultrasound 06/13/16 0000 Signed Impressions: Service Date/Time: Monday, June 13, 2016 23:58 - CONCLUSION: Very small volume ascites. Alan Lam Jr., MD Procedures SAHIL Other Results Laboratory Tests Test 06/17/16 06/18/16 06/20/16 11:44 10:45 09:23 Erythrocyte Sedimentation Rate 6 mm/hr Phosphorus Level 3.0 MG/DL Albumin 3.1 GM/DL Vancomycin Level Trough 11.1 MCG/ML White Blood Count 5.8 TH/MM3 Red Blood Count 4.54 MIL/MM3 Hemoglobin 10.3 GM/DL Hematocrit 33.4 % Mean Corpuscular Volume 73.5 FL Mean Corpuscular Hemoglobin 22.6 PG Mean Corpuscular Hemoglobin 30.7 % Concent Red Cell Distribution Width 20.0 % Platelet Count 191 TH/MM3 Mean Platelet Volume 7.7 FL Prothrombin Time 29.4 SEC Prothromb Time International 2.6 RATIO Ratio Sodium Level 136 MEQ/L Potassium Level 4.3 MEQ/L Chloride Level 105 MEQ/L Carbon Dioxide Level 21.8 MEQ/L Anion Gap 9 MEQ/L Blood Urea Nitrogen 11 MG/DL Creatinine 1.14 MG/DL Estimat Glomerular Filtration 51 ML/MIN Rate Random Glucose 66 MG/DL Calcium Level 8.9 MG/DL Objective Remarks GENERAL: Obesity, no acute distress. SKIN: Warm and dry. HEAD: Atraumatic. Normocephalic. EYES: Pupils equal and round. No scleral icterus. No injection or drainage. ENT: No nasal bleeding or discharge. Mucous membranes pink and moist. NECK: Trachea midline. No JVD. CARDIOVASCULAR: Regular rate and rhythm. RESPIRATORY: No accessory muscle use. Clear to auscultation. Breath sounds equal bilaterally. GASTROINTESTINAL: Abdomen soft, non-tender, nondistended. Hepatic and splenic margins not palpable. MUSCULOSKELETAL: Extremities without clubbing, cyanosis, or edema. No obvious deformities. NEUROLOGICAL: Awake and alert. No obvious cranial nerve deficits. Motor grossly within normal limits. Five out of 5 muscle strength in the arms and legs. Normal speech. PSYCHIATRIC: Appropriate mood and affect; insight and judgment normal. Medications and IVs Current Medications Medications (Trade) Dose Ordered Sig/Digna Route Start Time Stop Time Status Last Admin (NS Flush) 2 ml UNSCH PRN IV FLUSH 06/13/16 22:30 (NS Flush) 2 ml BID IV FLUSH 06/14/16 09:00 06/20/16 21:36 (Tylenol) 650 mg Q4H PRN PO 06/13/16 22:30 06/14/16 06:40 (Zofran Inj) 4 mg Q6H PRN IVP 06/13/16 22:30 (Narcan Inj) 0.4 mg UNSCH PRN IV 06/13/16 22:30 (Ecotrin Ec) 81 mg DAILY PO 06/14/16 09:00 06/20/16 10:04 (Lasix) 20 mg DAILY PO 06/14/16 09:00 06/20/16 10:04 (Lactulose Liq) 30 ml DAILY PO 06/14/16 09:00 06/20/16 10:03 (Synthroid) 50 mcg DAILY@0600 PO 06/14/16 06:00 06/21/16 06:08 (Prinivil) 2.5 mg DAILY PO 06/14/16 09:00 06/20/16 10:05 (Protonix) 40 mg DAILY PO 06/14/16 09:00 06/20/16 10:04 (Vitamin B1) 100 mg DAILY PO 06/14/16 09:00 06/20/16 10:04 (D50w (Vial) Inj) 25 ml UNSCH PRN IV PUSH 06/13/16 22:45 06/18/16 08:10 (Glucagon Inj) 1 mg UNSCH PRN OTHER 06/13/16 22:45 Miscellaneous 1 ea 1 ea UNSCH PRN OTHER 06/13/16 23:00 (Coumadin Consult Pharmacy) 0 ml @ 0 mls/hr UNSCH OTHER 06/14/16 00:15 Warfarin Sodium 4 mg 4 mg DAILY@1600 PO 06/14/16 22:15 Hold 06/19/16 16:41 (Vancomycin Consult Pharmacy) 0 ml @ 0 mls/hr UNSCH OTHER 06/15/16 09:00 (Lidoderm 5% Patch.12 Hr) 1 patch DAILY T-DERMAL 06/15/16 11:15 06/19/16 08:15 Miscellaneous Information 1 Q24H T-DERMAL 06/15/16 21:00 06/20/16 21:00 (Ultracet 37.5-325 Mg) 1 tab Q8HR PRN PO 06/16/16 13:00 06/21/16 06:09 (Flexeril) 10 mg Q8H PO 06/17/16 12:00 06/21/16 04:13 (Ambien) 5 mg HS PRN PO 06/17/16 11:45 06/20/16 21:36 Miscellaneous Information 1 1 UNSCH PRN XX 06/18/16 09:15 06/21/16 09:14 (Vancomycin Inj/ NS 500 ml Inj) 515 ml @ 250 mls/hr Q24H IV 06/19/16 11:00 06/20/16 12:49 Miscellaneous Information SPECIFIC LAB TO BE DRAWN:VANCOMYCIN TROUGH DATE TO... ONCE ONCE .XX 06/21/16 10:45 06/21/16 10:46 A/P Assessment and Plan (1) Pulmonary embolism ICD Code: I26.99 Status: Chronic (2) CAD (coronary artery disease) ICD Code: I25.10 Status: Chronic (3) DM (diabetes mellitus) ICD Code: E11.9 Status: Chronic (4) CHF (congestive heart failure) ICD Code: I50.9 Status: Chronic (5) Pneumonia ICD Code: J18.9 Status: Acute (6) COPD (chronic obstructive pulmonary disease) ICD Code: J44.9 Status: Chronic (7) HTN (hypertension) ICD Code: I10 Status: Chronic (8) HLD (hyperlipidemia) ICD Code: E78.5 Status: Chronic Assessment and Plan 45-year-old female with multiple comorbidities presents to the emergency department with increasing shortness of breath. Pneumonia -Patient recently hospitalized with multiple medical comorbidities and new consolidation on chest x-ray and oxygen requirement, -Infectious disease was consulted and Zosyn was discontinued on 06/15/2016 and vancomycin was continued. -patient will need outpatient infusion. MRSA bacteremia -on vancomycin and consult ID. --Blood cultures on 06/13 + 05/26 for MRSA, 06/15 02/25 MRSA. 06/17 blood cultures so far negative. SAHIL negative for any vegetation. -per ID if blood cultures negative on Wednesday then place PICC line for outpatient infusion. Bilateral pulmonary embolism -s/p Vitamin K -INR 3.4 Pharmacy following. Cirrhosis/hepatitis C -Abdominal ultrasound showed small amount of ascites. -Continue home lactulose CHF s/p AICD in place -Last echo done in March 2016 showed an EF of 1020 percent. Repeat echo on 06/15 showed an EF of 20%. -BNP 2326, was 2127 1 month ago CAD -Status post stent placement -Continue aspirin -EKG showed sinus tach, no ST elevations/depressions CKD -Patient with known CKD, Cr 1.8 today baseline 1.3 -Patient back to her baseline. -avoid nephrotoxic mildly elevated troponin -due to CKD and CHF. -continue to trend. Diabetes Mellitus -She has been hypoglycemic so will stop Levemir. She is on 25 units a day at home. -SSI Hypertension -Continue home lisinopril Lower back pain -IMPROVED with Flexeril. -Per patient Lidoderm and heating pad does not work and she is ambulating. -X-ray shows mild degenerative joint disease -on tramadol/acetaminophen when necessary. -caution with pain medication due to hx of IVDU. GERD on PPI, Carafate and Simethicone. DVT prophylaxis -on warfarin INR 3.4 Discharge Planning If blood cultures are negative on Wednesday place PICC and patient can be d/c on vancomycin for 4 weeks. David Guthrie MD Jun 21, 2016 09:10 vancomycin for 4 weeks. David Guthrie MD Jun 21, 2016 09:10
[2016-06-21] MEDS: ASPIRIN EC 81 MG TABEC PO SCH (10:23)
[2016-06-21] MEDS: LACTULOSE SYRUP 20 GM/30 ML CUP PO SCH (10:23)
[2016-06-21] MEDS: SODIUM CHLORIDE 0.9% FLUSH 10 ML FLUSH IV FLUSH SCH ×2 (10:23→20:43)
[2016-06-21] MEDS: FUROSEMIDE 20 MG TAB PO SCH (10:23)
[2016-06-21] MEDS: PANTOPRAZOLE SOD 40 MG DELAYED RELEASE TAB PO SCH (10:24)
[2016-06-21] MEDS: REMOVE OLD LIDOCAINE PATCH T-DERMAL SCH (10:24)
[2016-06-21] MEDS: THIAMINE HCL 100 MG TAB PO SCH (10:24)
[2016-06-21] MEDS: LISINOPRIL 5 MG TAB PO SCH (10:24)
[2016-06-21 10:35] LABS: INTERNATIONAL NORMALIZED RATIO 3.4 RATIO; PROTHROMBIN TIME - PATIENT 39.9 SEC (9.8-11.6)
[2016-06-21] MEDS ORDERED: PHARMACY ORDERED LAB ONE (10:45)
[2016-06-21] MEDS: VANCOMYCIN INJ 1,500 MG in SODIUM CHLORID 0.9% 500 ML INJ 500 ML IV SCH (11:44)
[2016-06-21] MEDS: SIMETHICONE 80 MG CHEWABLE TAB CHEW SCH (18:15)
[2016-06-21] MEDS: SUCRALFATE 1 GM/10 ML CUP PO SCH (20:42)
[2016-06-21] MEDS: ZOLPIDEM TARTRATE 5 MG TAB PO PRN (22:46)
[2016-06-22] VITALS (7 sets, daily range): BP systolic 100–122; BP diastolic 64–86; PULSE 100–114; RESP 16–20; TEMP 97.5–99.3; O2SAT 94–99
[2016-06-22] MEDS: CYCLOBENZAPRINE HCL 10 MG TAB PO SCH ×3 (05:55→20:59)
[2016-06-22] MEDS: SUCRALFATE 1 GM/10 ML CUP PO SCH ×4 (05:56→20:59)
[2016-06-22] MEDS: LEVOTHYROXINE SODIUM 50 MCG TAB PO SCH (05:56)
[2016-06-22] MEDS: INSULIN ASPART SUPPLEMENTAL SCALE SQ SCH ×4 (05:58→20:59)
[2016-06-22] MEDS: traMADol/ACETAMINOPHEN 37.5/325 1 TAB PO PRN ×2 (06:53→16:55)
[2016-06-22] MEDS: LACTULOSE SYRUP 20 GM/30 ML CUP PO SCH (08:25)
[2016-06-22] MEDS: LIDOCAINE HCL 5% PATCH T-DERMAL SCH (08:25)
[2016-06-22] MEDS: ASPIRIN EC 81 MG TABEC PO SCH (08:25)
[2016-06-22] MEDS: PANTOPRAZOLE SOD 40 MG DELAYED RELEASE TAB PO SCH (08:26)
[2016-06-22] MEDS: FUROSEMIDE 20 MG TAB PO SCH (08:26)
[2016-06-22] MEDS: LISINOPRIL 5 MG TAB PO SCH (08:26)
[2016-06-22] MEDS: THIAMINE HCL 100 MG TAB PO SCH (08:26)
[2016-06-22] MEDS: SIMETHICONE 80 MG CHEWABLE TAB CHEW SCH ×3 (08:28→16:55)
[2016-06-22] MEDS: SODIUM CHLORIDE 0.9% FLUSH 10 ML FLUSH IV FLUSH SCH ×2 (08:28→21:00)
[2016-06-22 08:54] LABS: INTERNATIONAL NORMALIZED RATIO 3.1 RATIO; PROTHROMBIN TIME - PATIENT 36.1 SEC (9.8-11.6)
--- NOTE | 2016-06-22 11:21 | HHI.FF ---
Infusion Therapy Location of Infusion Therapy: Ambulatory Infusion Therapy Order Patient Information Patient Weight 73.2 kg Diagnosis: Coded Allergies: *MDRO Multi-Drug Resistant Organism (Verified Adverse Reaction, Unknown, ) MRSA (blood) - 06/13/16, 06/15/16 Administer Medication Vancomycin 1 gram IV q 48 hours Start Treatment: June 23, 2016 Stop Treatment: July 15, 2016 Additional Information Venous access: Implanted Port Additional Instructions [x] Peripheral flush and dressing changes per protocol [x] Implanted port and central package line operator: * Implanted port: 10 ml Normal Saline followed by 5 ml Heparin 100 units/ml Heparin flush after each use and monthly to maintain. [] May leave port accessed during therapy. [] May leave peripheral site accessed for duration of therapy. [x] If patient has SOB or respiratory distress, check oxygen saturation. If less than 90% or clinical signs of respiratory distress, administer oxygen at 2 L/min. via nasal cannula and notify physician. [x] Anaphylaxis/Reaction orders: * Stop infusion. * Keep IV line open with saline flush. * Notify physician. * Monitor vital signs every 15 minutes until symptoms resolve. * Check Oxygen saturation; Oxygen at 2 L/min. via nasal cannula if less than 90% or clinical signs of respiratory distress. * Administer diphenhydramine (Benadryl) 25 mg IV STAT, (unless patient has received as pre-med). May repeat once, if necessary. * Solu-Cortef 250 mg IVP over 30-60 seconds, use 100 mg vials for each dissolution. * Epinephrine (1mg/1 ml) 0.3 mg subcutaneously or IVP now with any signs of respiratory distress. * Check with physician for new additional pre-med orders if patient is re- challenged or re-treated. [x] May remove PICC line when treatment complete, after confirming with Physician. [x] If the patient is admitted to the hospital, the ED, or transferred via [facility] , complete transfer form including medication reconciliation order sheet. Laboratory Tests Weekly Labs: Vancomycin Trough Additional Information Please send vancomycin level and await result before dose ordered on 06/23. Call Dr. Stack with result. BMP QOD x 3 then creatinine 2 x week while on vancomycin starting on 06/23. Manny Stack MD June 22, 2016 11:21
--- NOTE | 2016-06-22 11:31 | HHI.IDPN ---
Note Infectious Disease Note Patient without complaints. Afebrile. Denies chills 2D ECHO reveal EF of 20% unchanged. SAHIL without vegetations. 06/17 - Repeat blood culture negative. 06/15 - Blood culture MRSA. 06/13 - Blood culture MRSA. PAST MEDICAL HISTORY 1. Hypertension. 2. COPD. 3. Insulin dependent diabetes mellitus. 4. Coronary artery disease. 5. Hyperlipidemia. 6. Cirrhosis. 7. Chronic kidney disease. 8. Hypertension C. 9. Cholecystectomy. 10. Tubal ligation. 11. AICD. SOCIAL HISTORY The patient smokes eight cigarettes a day. Denies alcohol use. Denies illicit drug use. FAMILY HISTORY Noncontributory. Objective: Vital Signs Date Time Temp Pulse Resp B/P Pulse Ox O2 Delivery O2 Flow Rate FiO2 06/22/16 08:03 104 06/22/16 08:03 97.6 109 16 122/86 94 06/22/16 00:00 99.3 114 20 122/82 99 06/22/16 00:00 Room Air 06/21/16 20:20 Room Air 06/21/16 20:00 98.4 105 20 118/84 98 06/21/16 20:00 110 06/21/16 18:24 68 159/78 06/21/16 16:39 20 06/21/16 16:00 97.2 103 20 114/79 99 06/21/16 12:00 97.5 108 20 123/87 96 06/21/16 06/21/16 06/22/16 15:00 23:00 07:00 Intake Total 500 ml 380 ml Balance 500 ml 380 ml Intake Oral 380 ml IV Total 500 ml # Voids 2 # Bowel Movements 0 Laboratory Tests Test 06/22/16 08:00 Creatinine 1.27 MG/DL Estimat Glomerular Filtration 45 ML/MIN Rate Microbiology Date/Time Procedure Status Source Growth 06/13/16 23:30 Aerobic Blood Culture - Final Resulted Blood Peripheral S. Aureus Mrsa 06/13/16 23:30 Anaerobic Blood Culture - Preliminary Resulted Blood Peripheral NO GROWTH IN 3 DAYS 06/13/16 23:35 Aerobic Blood Culture - Final Complete Blood Peripheral S. Aureus Mrsa 06/13/16 23:35 Anaerobic Blood Culture - Final Complete S. Aureus Mrsa 06/15/16 17:59 Aerobic Blood Culture - Preliminary Resulted Blood Peripheral NO GROWTH IN 1 DAY 06/15/16 17:59 Anaerobic Blood Culture - Preliminary Resulted Blood Peripheral NO GROWTH IN 1 DAY 06/15/16 18:14 Aerobic Blood Culture - Preliminary Resulted Blood Peripheral NO GROWTH IN 1 DAY 06/15/16 18:14 Anaerobic Blood Culture - Preliminary Resulted Blood Peripheral NO GROWTH IN 1 DAY IMAGING: Lumbar Spine X-Ray 06/16/16 0000 Signed Impressions: Service Date/Time: Thursday, June 16, 2016 15:06 - CONCLUSION: 1. Mild degenerative disc change at the L1-2 and L3-4 levels. Gerber Pimentel MD Chest X-Ray 06/13/161957 Signed Impressions: Service Date/Time: Monday, June 13, 2016 20:10 - CONCLUSION: New partially consolidative infiltrate in the right midlung. Alan Burton MD Abdomen Ultrasound 06/13/16 0000 Signed Impressions: Service Date/Time: Monday, June 13, 2016 23:58 - CONCLUSION: Very small volume ascites. Alan Lam Jr., MD PHYSICAL EXAMINATION GENERAL: No acute distress. She is awake and alert and oriented. HEENT: Head is atraumatic. Extraocular movements grossly intact, pupils reactive to light without icterus. Oropharynx very poor dentition with multiple erosive teeth at both upper and lower. No thrush. NECK: Supple without adenopathy. LUNGS: Clear breath sounds. HEART: 2/6 systolic murmur at the left sternal border. CHEST: AICD in place at the left upper chest which has no tenderness and no swelling or erythema. ABDOMEN: Bowel sounds present, soft, non tender. EXTREMITIES: No clubbing or cyanosis or edema. SKIN: No rash. NEURO: Nonfocal. PSYCHE: Calm and cooperative. IMPRESSION 1. MRSA bacteremia in a patient with AICD device. Possible source includes device infection versus pneumonia. SAHIL without evidence of endocarditis. 2. Pneumonia. The patient noted to have partially consolidative infiltrate in the right lung. 3. Sepsis on admission, elevated heart rate, elevated white blood cell count, and positive blood culture with source likely pneumonia. RECOMMENDATIONS Continue vancomycin until 07/15. Discussed wit DR. Friedman about placing a Walker catheter for IV antibiotic. Patient notified by me that the Walker catheter is to be used for IV antibiotic by medical staff only. Also explained the risks of improper use or manipulation of the catheter. IV infusion form filled out with antibiotic orders and labs to be obtained at infusion center. Discussed with case reviewer about arranging antibiotic outpatient. Okay to discharge patient from my standpoint after placement of Walker catheter and antibiotic arrangement. I will sign off from this hospitalization now. I will follow outpatient labs. Manny Stack MD June 22, 2016 11:31
--- NOTE | 2016-06-22 12:49 | HHI.PR ---
Subjective Remarks This is a pleasant 45 y/o Female with CHF, EF 15-20%, status post AICD, COPD, Hepatitis C, Cirrhosis, CKD III, Bilateral PEs, diagnosed March 2016, on Coumadin, who came to ER with SOB, SAHIL - EF 20% . mild-mod MR. mod TR. no vegetations. treasury specialist Signed off the case. ID specialist following with Diagnosis of MRSA Bacteremia, SAHIL no evidence of Endocarditis Pneumonia partially consolidative infiltrate in the right lung, Sepsis on admission, recommended to get PICC line and discharge on IV Vancomycin for 4 weeks. if blood culture negative. states she has abdominal discomfort and some distention, is having good bowel movements will follow on Simethicone, PPIs and Carafate for GERD. 06/22: Seen in her bedroom and discussed with nurse Miss Petty also discussed with Afterschool Babysitter and Infectious Disease specialist Doctor Manny Stack with Diagnosis of MRSA bacteremia in a patient with AICD device as a possible source of infection, SAHIL no evidence of Endocarditis, Pneumonia patient with partially consolidative infiltrate in the Right lung, sepsis on admission recommended to continue Vancomycin until 07/15, place a Walker Catheter for IV antibiotics. She will come back daily for Infusion center. signed off the case. he will follow outpatient laboratory. Objective Vital Signs Date Time Temp Pulse Resp B/P Pulse Ox O2 Delivery O2 Flow Rate FiO2 06/22/16 08:03 104 06/22/16 08:03 97.6 109 16 122/86 94 06/22/16 08:00 Room Air 06/22/16 00:00 99.3 114 20 122/82 99 06/22/16 00:00 Room Air 06/21/16 20:20 Room Air 06/21/16 20:00 98.4 105 20 118/84 98 06/21/16 20:00 110 06/21/16 18:24 68 159/78 06/21/16 16:39 20 06/21/16 16:00 97.2 103 20 114/79 99 I/O 06/21/16 06/21/16 06/21/16 06/22/16 06/22/16 06/22/16 07:00 15:00 23:00 07:00 15:00 23:00 Intake Total 600 ml 500 ml 380 ml 220 ml Balance 600 ml 500 ml 380 ml 220 ml Intake Oral 600 ml 380 ml 220 ml IV Total 500 ml # Voids 2 2 2 # Bowel Movements 0 1 Result Diagram: 06/20/16 0923 06/22/16 0800 Imaging Last Impressions Chest X-Ray 06/19/16 0000 Signed Impressions: Service Date/Time: Sunday, June 19, 2016 16:18 - CONCLUSION: 1. The right mid lung infiltrate is mildly more diffuse. 2. Mild cardiomegaly remains. Gerber Pimentel MD Lumbar Spine X-Ray 06/16/16 0000 Signed Impressions: Service Date/Time: Thursday, June 16, 2016 15:06 - CONCLUSION: 1. Mild degenerative disc change at the L1-2 and L3-4 levels. Gerber Pimentel MD Abdomen Ultrasound 06/13/16 0000 Signed Impressions: Service Date/Time: Monday, June 13, 2016 23:58 - CONCLUSION: Very small volume ascites. Alan Lam Jr., MD Procedures SAHIL Other Results Laboratory Tests Test 06/20/16 06/21/16 06/22/16 09:23 11:30 08:00 White Blood Count 5.8 TH/MM3 Red Blood Count 4.54 MIL/MM3 Hemoglobin 10.3 GM/DL Hematocrit 33.4 % Mean Corpuscular Volume 73.5 FL Mean Corpuscular Hemoglobin 22.6 PG Mean Corpuscular Hemoglobin 30.7 % Concent Red Cell Distribution Width 20.0 % Platelet Count 191 TH/MM3 Mean Platelet Volume 7.7 FL Sodium Level 136 MEQ/L Potassium Level 4.3 MEQ/L Chloride Level 105 MEQ/L Carbon Dioxide Level 21.8 MEQ/L Anion Gap 9 MEQ/L Blood Urea Nitrogen 11 MG/DL Random Glucose 66 MG/DL Calcium Level 8.9 MG/DL Vancomycin Level Trough 23.2 MCG/ML Prothrombin Time 36.1 SEC Prothromb Time International 3.1 RATIO Ratio Creatinine 1.27 MG/DL Estimat Glomerular Filtration 45 ML/MIN Rate Random Vancomycin Level 28.0 COMMENT Objective Remarks GENERAL: Obesity, no acute distress. SKIN: Warm and dry. HEAD: Atraumatic. Normocephalic. EYES: Pupils equal and round. No scleral icterus. No injection or drainage. ENT: No nasal bleeding or discharge. Mucous membranes pink and moist. NECK: Trachea midline. No JVD. CARDIOVASCULAR: Regular rate and rhythm. RESPIRATORY: No accessory muscle use. Clear to auscultation. Breath sounds equal bilaterally. GASTROINTESTINAL: Abdomen soft, non-tender, nondistended. Hepatic and splenic margins not palpable. MUSCULOSKELETAL: Extremities without clubbing, cyanosis, or edema. No obvious deformities. NEUROLOGICAL: Awake and alert. No obvious cranial nerve deficits. Motor grossly within normal limits. Five out of 5 muscle strength in the arms and legs. Normal speech. PSYCHIATRIC: Appropriate mood and affect; insight and judgment normal. Medications and IVs Current Medications Medications (Trade) Dose Ordered Sig/Digna Route Start Time Stop Time Status Last Admin (NS Flush) 2 ml UNSCH PRN IV FLUSH 06/13/16 22:30 (NS Flush) 2 ml BID IV FLUSH 06/14/16 09:00 06/22/16 08:28 (Tylenol) 650 mg Q4H PRN PO 06/13/16 22:30 06/14/16 06:40 (Zofran Inj) 4 mg Q6H PRN IVP 06/13/16 22:30 (Narcan Inj) 0.4 mg UNSCH PRN IV 06/13/16 22:30 (Ecotrin Ec) 81 mg DAILY PO 06/14/16 09:00 06/22/16 08:25 (Lasix) 20 mg DAILY PO 06/14/16 09:00 06/22/16 08:26 (Lactulose Liq) 30 ml DAILY PO 06/14/16 09:00 06/22/16 08:25 (Synthroid) 50 mcg DAILY@0600 PO 06/14/16 06:00 06/22/16 05:56 (Prinivil) 2.5 mg DAILY PO 06/14/16 09:00 06/22/16 08:26 (Protonix) 40 mg DAILY PO 06/14/16 09:00 06/22/16 08:26 (Vitamin B1) 100 mg DAILY PO 06/14/16 09:00 06/22/16 08:26 (D50w (Vial) Inj) 25 ml UNSCH PRN IV PUSH 06/13/16 22:45 06/18/16 08:10 (Glucagon Inj) 1 mg UNSCH PRN OTHER 06/13/16 22:45 Miscellaneous 1 ea 1 ea UNSCH PRN OTHER 06/13/16 23:00 (Coumadin Consult Pharmacy) 0 ml @ 0 mls/hr UNSCH OTHER 06/14/16 00:15 Warfarin Sodium 4 mg 4 mg DAILY@1600 PO 06/14/16 22:15 Hold 06/19/16 16:41 (Vancomycin Consult Pharmacy) 0 ml @ 0 mls/hr UNSCH OTHER 06/15/16 09:00 (Lidoderm 5% Patch.12 Hr) 1 patch DAILY T-DERMAL 06/15/16 11:15 06/19/16 08:15 Miscellaneous Information 1 Q24H T-DERMAL 06/15/16 21:00 06/20/16 21:00 (Ultracet 37.5-325 Mg) 1 tab Q8HR PRN PO 06/16/16 13:00 06/22/16 06:53 (Flexeril) 10 mg Q8H PO 06/17/16 12:00 06/22/16 11:23 Zolpidem Tartrate 5 mg 5 mg HS PRN PO 06/17/16 11:45 06/21/16 22:46 (Vancomycin Inj/ NS 500 ml Inj) 515 ml @ 250 mls/hr Q24H IV 06/19/16 11:00 Hold 06/21/16 11:44 (Carafate Liq) 1 gm ACHS PO 06/21/16 21:00 06/22/16 11:23 (Mylicon Chew) 80 mg TID CHEW 06/21/16 18:00 06/22/16 11:23 A/P Assessment and Plan (1) Pulmonary embolism ICD Code: I26.99 Status: Chronic (2) CAD (coronary artery disease) ICD Code: I25.10 Status: Chronic (3) DM (diabetes mellitus) ICD Code: E11.9 Status: Chronic (4) CHF (congestive heart failure) ICD Code: I50.9 Status: Chronic (5) Pneumonia ICD Code: J18.9 Status: Acute (6) COPD (chronic obstructive pulmonary disease) ICD Code: J44.9 Status: Chronic (7) HTN (hypertension) ICD Code: I10 Status: Chronic (8) HLD (hyperlipidemia) ICD Code: E78.5 Status: Chronic Assessment and Plan 45-year-old female with multiple comorbidities presents to the emergency department with increasing shortness of breath. Pneumonia -Patient recently hospitalized with multiple medical comorbidities and new consolidation on chest x-ray and oxygen requirement, -Infectious disease was consulted and Zosyn was discontinued on 06/15/2016 and vancomycin was continued. -patient will need outpatient infusion. MRSA bacteremia -on vancomycin and consult ID. --Blood cultures on 06/13 + 05/26 for MRSA, 06/15 02/25 MRSA. 06/17 blood cultures so far negative. SAHIL negative for any vegetation. -per ID if blood cultures negative, to get Walker cath today, PICC was not recommended due to poor renal function fluctuation for the last years. Bilateral pulmonary embolism -s/p Vitamin K -INR 3.4 Pharmacy following. Cirrhosis/hepatitis C -Abdominal ultrasound showed small amount of ascites. -Continue home lactulose CHF s/p AICD in place -Last echo done in March 2016 showed an EF of 1020 percent. Repeat echo on 06/15 showed an EF of 20%. -BNP 2326, was 2127 1 month ago CAD -Status post stent placement -Continue aspirin -EKG showed sinus tach, no ST elevations/depressions CKD -Patient with known CKD, Cr 1.27 today baseline 1.3 -Patient back to her baseline. -avoid nephrotoxic mildly elevated troponin -due to CKD and CHF. -continue to trend. Diabetes Mellitus -She has been hypoglycemic so will stop Levemir. She is on 25 units a day at home. -SSI Hypertension -Continue home lisinopril Lower back pain -IMPROVED with Flexeril. -Per patient Lidoderm and heating pad does not work and she is ambulating. -X-ray shows mild degenerative joint disease -on tramadol/acetaminophen when necessary. -caution with pain medication due to hx of IVDU. GERD on PPI, Carafate and Simethicone. DVT prophylaxis -on warfarin INR 3.1 will continue home Warfarin starting tomorrow and follow with PCP in two days. for PT and INR Discharge Planning Blood cultures negative Discussed with nurse Miss Petty also discussed with Afterschool Babysitter and Infectious Disease specialist Doctor Manny Stack with Diagnosis of MRSA bacteremia in a patient with AICD device as a possible source of infection, SAHIL no evidence of Endocarditis, Pneumonia patient with partially consolidative infiltrate in the Right lung, sepsis on admission recommended to continue Vancomycin until 07/15, place a Walker Catheter for IV antibiotics. She will come back daily for Infusion center. signed off the case. he will follow outpatient laboratory. David Guthrie MD June 22, 2016 12:49
[2016-06-22] MEDS: REMOVE OLD LIDOCAINE PATCH T-DERMAL SCH (21:00)
[2016-06-23] VITALS (9 sets, daily range): BP systolic 95–127; BP diastolic 57–82; PULSE 93–106; RESP 16–18; TEMP 97–97.5; O2SAT 92–100
[2016-06-23] MEDS: ZOLPIDEM TARTRATE 5 MG TAB PO PRN ×2 (01:10→21:10)
[2016-06-23] MEDS: traMADol/ACETAMINOPHEN 37.5/325 1 TAB PO PRN ×3 (01:10→20:28)
[2016-06-23] MEDS: LEVOTHYROXINE SODIUM 50 MCG TAB PO SCH (06:37)
[2016-06-23] MEDS: CYCLOBENZAPRINE HCL 10 MG TAB PO SCH ×3 (06:37→20:28)
[2016-06-23] MEDS: SUCRALFATE 1 GM/10 ML CUP PO SCH ×4 (06:38→20:29)
[2016-06-23] MEDS: INSULIN ASPART SUPPLEMENTAL SCALE SQ SCH ×4 (06:40→20:29)
--- NOTE | 2016-06-23 07:58 | HHI.PR ---
Subjective Remarks This is a pleasant 45 y/o Female with CHF, EF 15-20%, status post AICD, COPD, Hepatitis C, Cirrhosis, CKD III, Bilateral PEs, diagnosed March 2016, on Coumadin, who came to ER with SOB, SAHIL - EF 20% . mild-mod MR. mod TR. no vegetations. accreditation specialist Signed off the case. ID specialist following with Diagnosis of MRSA Bacteremia, SAHIL no evidence of Endocarditis Pneumonia partially consolidative infiltrate in the right lung, Sepsis on admission, recommended to get PICC line and discharge on IV Vancomycin for 4 weeks. if blood culture negative. states she has abdominal discomfort and some distention, is having good bowel movements will follow on Simethicone, PPIs and Carafate for GERD. 06/22: Seen in her bedroom and discussed with nurse Miss Petty also discussed with Logging Tractor Operator and Infectious Disease specialist Doctor Manny Stack with Diagnosis of MRSA bacteremia in a patient with AICD device as a possible source of infection, SAHIL no evidence of Endocarditis, Pneumonia patient with partially consolidative infiltrate in the Right lung, sepsis on admission recommended to continue Vancomycin until 07/15, place a Walker Catheter for IV antibiotics. She will come back daily for Infusion center. signed off the case. he will follow outpatient laboratory. 06/23: Patient seen in her bedroom stable walking without difficulty, wants to go home, explained that she will have a catheter in her chest to avoid PICC line placement and needs to get her both arms away for this procedures due to her renal function. will give her another unit of FFP and try to get her ready for tomorrow. for Walker cath placement. Objective Vital Signs Date Time Temp Pulse Resp B/P Pulse Ox O2 Delivery O2 Flow Rate FiO2 06/23/16 04:00 97.3 93 17 95/64 95 06/23/16 00:00 97.3 97 17 110/76 94 06/22/16 21:00 Room Air 06/22/16 20:00 98.2 103 17 100/77 95 06/22/16 16:03 97.6 111 16 111/82 97 06/22/16 15:47 97.7 100 16 115/74 96 06/22/16 15:32 97.5 107 16 118/64 97 06/22/16 12:03 98.2 104 16 110/77 95 06/22/16 08:03 104 5/1/17 08:03 97.6 109 16 122/86 94 06/22/16 08:00 Room Air I/O 06/22/16 06/22/16 06/22/16 06/23/16 06/23/16 06/23/16 07:00 15:00 23:00 07:00 15:00 23:00 Intake Total 240 ml 502 ml 240 ml Output Total 600 ml 1 ml Balance 240 ml -98 ml 239 ml Intake Oral 240 ml 500 ml 240 ml IV Total 2 ml Output Urine Total 600 ml 1 ml # Voids 3 2 # Bowel Movements 1 Result Diagram: 06/20/16 0923 06/22/16 0800 Imaging Last Impressions Chest X-Ray 06/19/16 0000 Signed Impressions: Service Date/Time: Sunday, June 19, 2016 16:18 - CONCLUSION: 1. The right mid lung infiltrate is mildly more diffuse. 2. Mild cardiomegaly remains. Gerber Pimentel MD Lumbar Spine X-Ray 06/16/16 0000 Signed Impressions: Service Date/Time: Thursday, June 16, 2016 15:06 - CONCLUSION: 1. Mild degenerative disc change at the L1-2 and L3-4 levels. Gerber Pimentel MD Abdomen Ultrasound 06/13/16 0000 Signed Impressions: Service Date/Time: Monday, June 13, 2016 23:58 - CONCLUSION: Very small volume ascites. Alan Lam Jr., MD Procedures SAHIL Other Results Laboratory Tests Test 06/20/16 06/21/16 06/22/16 06/22/16 09:23 11:30 08:00 12:49 White Blood Count 5.8 TH/MM3 Red Blood Count 4.54 MIL/MM3 Hemoglobin 10.3 GM/DL Hematocrit 33.4 % Mean Corpuscular Volume 73.5 FL Mean Corpuscular Hemoglobin 22.6 PG Mean Corpuscular Hemoglobin 30.7 % Concent Red Cell Distribution Width 20.0 % Platelet Count 191 TH/MM3 Mean Platelet Volume 7.7 FL Sodium Level 136 MEQ/L Potassium Level 4.3 MEQ/L Chloride Level 105 MEQ/L Carbon Dioxide Level 21.8 MEQ/L Anion Gap 9 MEQ/L Blood Urea Nitrogen 11 MG/DL Random Glucose 66 MG/DL Calcium Level 8.9 MG/DL Vancomycin Level Trough 23.2 MCG/ML Prothrombin Time 36.1 SEC Prothromb Time International 3.1 RATIO Ratio Creatinine 1.27 MG/DL Estimat Glomerular Filtration 45 ML/MIN Rate Random Vancomycin Level 28.0 COMMENT Blood Bank Comment Objective Remarks GENERAL: Obesity, no acute distress. SKIN: Warm and dry. HEAD: Atraumatic. Normocephalic. EYES: Pupils equal and round. No scleral icterus. No injection or drainage. ENT: No nasal bleeding or discharge. Mucous membranes pink and moist. NECK: Trachea midline. No JVD. CARDIOVASCULAR: Regular rate and rhythm. RESPIRATORY: No accessory muscle use. Clear to auscultation. Breath sounds equal bilaterally. GASTROINTESTINAL: Abdomen soft, non-tender, nondistended. Hepatic and splenic margins not palpable. MUSCULOSKELETAL: Extremities without clubbing, cyanosis, or edema. No obvious deformities. NEUROLOGICAL: Awake and alert. No obvious cranial nerve deficits. Motor grossly within normal limits. Five out of 5 muscle strength in the arms and legs. Normal speech. PSYCHIATRIC: Appropriate mood and affect; insight and judgment normal. Medications and IVs Current Medications Medications (Trade) Dose Ordered Sig/Digna Route Start Time Stop Time Status Last Admin (NS Flush) 2 ml UNSCH PRN IV FLUSH 06/13/16 22:30 (NS Flush) 2 ml BID IV FLUSH 06/14/16 09:00 06/22/16 21:00 (Tylenol) 650 mg Q4H PRN PO 06/13/16 22:30 06/14/16 06:40 (Zofran Inj) 4 mg Q6H PRN IVP 06/13/16 22:30 (Narcan Inj) 0.4 mg UNSCH PRN IV 06/13/16 22:30 (Ecotrin Ec) 81 mg DAILY PO 06/14/16 09:00 06/22/16 08:25 (Lasix) 20 mg DAILY PO 06/14/16 09:00 06/22/16 08:26 (Lactulose Liq) 30 ml DAILY PO 06/14/16 09:00 06/22/16 08:25 (Synthroid) 50 mcg DAILY@0600 PO 06/14/16 06:00 06/23/16 06:37 (Prinivil) 2.5 mg DAILY PO 06/14/16 09:00 06/22/16 08:26 (Protonix) 40 mg DAILY PO 06/14/16 09:00 06/22/16 08:26 (Vitamin B1) 100 mg DAILY PO 06/14/16 09:00 06/22/16 08:26 (D50w (Vial) Inj) 25 ml UNSCH PRN IV PUSH 06/13/16 22:45 06/18/16 08:10 (Glucagon Inj) 1 mg UNSCH PRN OTHER 06/13/16 22:45 Miscellaneous 1 ea 1 ea UNSCH PRN OTHER 06/13/16 23:00 (Vancomycin Consult Pharmacy) 0 ml @ 0 mls/hr UNSCH OTHER 06/15/16 09:00 (Lidoderm 5% Patch.12 Hr) 1 patch DAILY T-DERMAL 06/15/16 11:15 06/19/16 08:15 Miscellaneous Information 1 Q24H T-DERMAL 06/15/16 21:00 06/20/16 21:00 (Ultracet 37.5-325 Mg) 1 tab Q8HR PRN PO 06/16/16 13:00 06/23/16 01:10 (Flexeril) 10 mg Q8H PO 06/17/16 12:00 06/23/16 06:37 Zolpidem Tartrate 5 mg 5 mg HS PRN PO 06/17/16 11:45 06/23/16 01:10 (Vancomycin Inj/ NS 500 ml Inj) 515 ml @ 250 mls/hr Q24H IV 06/19/16 11:00 Hold 06/21/16 11:44 (Carafate Liq) 1 gm ACHS PO 06/21/16 21:00 06/22/16 11:23 (Mylicon Chew) 80 mg TID CHEW 06/21/16 18:00 06/22/16 16:55 A/P Assessment and Plan (1) Pulmonary embolism ICD Code: I26.99 Status: Chronic (2) CAD (coronary artery disease) ICD Code: I25.10 Status: Chronic (3) DM (diabetes mellitus) ICD Code: E11.9 Status: Chronic (4) CHF (congestive heart failure) ICD Code: I50.9 Status: Chronic (5) Pneumonia ICD Code: J18.9 Status: Acute (6) COPD (chronic obstructive pulmonary disease) ICD Code: J44.9 Status: Chronic (7) HTN (hypertension) ICD Code: I10 Status: Chronic (8) HLD (hyperlipidemia) ICD Code: E78.5 Status: Chronic Assessment and Plan 45-year-old female with multiple comorbidities presents to the emergency department with increasing shortness of breath. Pneumonia -Patient recently hospitalized with multiple medical comorbidities and new consolidation on chest x-ray and oxygen requirement, -Infectious disease was consulted and Zosyn was discontinued on 06/15/2016 and vancomycin was continued. -patient will need outpatient infusion. until 07/15/16 MRSA bacteremia -on vancomycin and consult ID. --Blood cultures on 06/13 + 05/26 for MRSA, 06/15 02/25 MRSA. 06/17 blood cultures so far negative. SAHIL negative for any vegetation. -per ID if blood cultures negative, to get Wakler cath, PICC was not recommended due to poor renal function fluctuation for the last years. Bilateral pulmonary embolism -had Coagulopathy and received Vitamin K, at this time her INR has to be subtherapeutic to place a Walker cath and then discharge Home Cirrhosis/hepatitis C -Abdominal ultrasound showed small amount of ascites. -Continue home lactulose CHF s/p AICD in place stable no signs of Exacerbation. -Last echo done in March 2016 showed an EF of 1020 percent. Repeat echo on 06/15 showed an EF of 20%. -BNP 2326, was 2127 1 month ago CAD -Status post stent placement -Continue aspirin -EKG showed sinus tach, no ST elevations/depressions CKD -Patient with known CKD, Cr 1.27 today baseline 1.3 -Patient back to her baseline. -avoid nephrotoxic antibiotics adjusted to renal function. mildly elevated troponin -due to CKD and CHF. -continue to trend. Diabetes Mellitus -Because she had Hypoglycemia was discontinued Levemir, but now increasing her blood sugars re started Levemir to 5 units BID and continue Sliding scale. Hypertension -Controlled. Lower back pain -IMPROVED with Flexeril. -Per patient Lidoderm and heating pad does not work and she is ambulating. -X-ray shows mild degenerative joint disease -on tramadol/acetaminophen when necessary. -caution with pain medication due to hx of IVDU. GERD on PPI, Carafate and Simethicone. DVT prophylaxis -on warfarin INR 2.1 try to get it in 1.5 for Walker cath placement. Discharge Planning awaiting to get Walker cath if possible by tomorrow depends of her INR if in 1.[address] the cath and discharge home may need to go on Lovenox and Warfarin. David Guthrie MD June 23, 2016 07:58 Infusion center. signed off the case. he will follow outpatient laboratory. David Guthrie MD June 23, 2016 07:58
[2016-06-23] MEDS: LIDOCAINE HCL 5% PATCH T-DERMAL SCH (08:41)
[2016-06-23] MEDS: LISINOPRIL 5 MG TAB PO SCH (08:42)
[2016-06-23] MEDS: FUROSEMIDE 20 MG TAB PO SCH (08:42)
[2016-06-23] MEDS: THIAMINE HCL 100 MG TAB PO SCH (08:42)
[2016-06-23] MEDS: SIMETHICONE 80 MG CHEWABLE TAB CHEW SCH ×3 (08:42→17:45)
[2016-06-23] MEDS: PANTOPRAZOLE SOD 40 MG DELAYED RELEASE TAB PO SCH (08:42)
[2016-06-23] MEDS: LACTULOSE SYRUP 20 GM/30 ML CUP PO SCH (08:42)
[2016-06-23] MEDS: ASPIRIN EC 81 MG TABEC PO SCH (08:42)
[2016-06-23] MEDS: SODIUM CHLORIDE 0.9% FLUSH 10 ML FLUSH IV FLUSH SCH ×2 (08:43→20:29)
[2016-06-23 09:55] LABS: INTERNATIONAL NORMALIZED RATIO 2.2 RATIO; PROTHROMBIN TIME - PATIENT 25.7 SEC (9.8-11.6)
[2016-06-23] MEDS: VANCOMYCIN INJ 1,250 MG in SODIUM CHLOR 0.9% 250 ML INJ 250 ML IV SCH (13:49)
[2016-06-23] MEDS: INSULIN DETEMIR 100 UNITS/ML VIAL SQ SCH (20:28)
[2016-06-23] MEDS: REMOVE OLD LIDOCAINE PATCH T-DERMAL SCH (20:29)
[2016-06-24] VITALS (8 sets, daily range): BP systolic 106–131; BP diastolic 73–88; PULSE 104–117; RESP 18–20; TEMP 96–97.3; O2SAT 95–96
[2016-06-24] MEDS: traMADol/ACETAMINOPHEN 37.5/325 1 TAB PO PRN ×3 (05:12→19:00)
[2016-06-24] MEDS: LEVOTHYROXINE SODIUM 50 MCG TAB PO SCH (05:12)
[2016-06-24] MEDS: SUCRALFATE 1 GM/10 ML CUP PO SCH ×4 (05:12→21:00)
[2016-06-24] MEDS: CYCLOBENZAPRINE HCL 10 MG TAB PO SCH ×3 (05:12→21:21)
[2016-06-24] MEDS: INSULIN ASPART SUPPLEMENTAL SCALE SQ SCH ×4 (06:42→21:00)
[2016-06-24 07:43] LABS: PROTHROMBIN TIME - PATIENT 22.5 SEC (9.8-11.6)
--- NOTE | 2016-06-24 08:17 | HHI.PR ---
Subjective Remarks This is a pleasant 45 y/o Female with CHF, EF 15-20%, status post AICD, COPD, Hepatitis C, Cirrhosis, CKD III, Bilateral PEs, diagnosed March 2016, on Coumadin, who came to ER with SOB, SAHIL - EF 20% . mild-mod MR. mod TR. no vegetations. strategic marketing specialist Signed off the case. ID specialist following with Diagnosis of MRSA Bacteremia, SAHIL no evidence of Endocarditis Pneumonia partially consolidative infiltrate in the right lung, Sepsis on admission, recommended to get PICC line and discharge on IV Vancomycin for 4 weeks. if blood culture negative. states she has abdominal discomfort and some distention, is having good bowel movements will follow on Simethicone, PPIs and Carafate for GERD. 06/22: Diagnosis of MRSA bacteremia in a patient with AICD device as a possible source of infection, SAHIL no evidence of Endocarditis, Pneumonia patient with partially consolidative infiltrate in the Right lung, sepsis on admission recommended to continue Vancomycin until 07/15, place a Walker Catheter for IV antibiotics. She will come back daily for Infusion center. signed off the case. 06/23: try to improve her INR to place a Walker cath not yet below 1.5 06/24: Seen in her bedroom nurse Miss Reynolds, no nausea, vomit or diarrhea, walking in her room, not yet INR ready to place Walker cath given Vitamin K and FFP Objective Vital Signs Date Time Temp Pulse Resp B/P Pulse Ox O2 Delivery O2 Flow Rate FiO2 06/24/16 08:00 97.1 111 18 106/74 95 06/24/16 06:43 16 06/24/16 04:00 97.3 112 18 117/84 95 06/24/16 02:32 104 06/24/16 00:00 97.3 105 18 125/73 95 06/23/16 21:10 Room Air 06/23/16 20:00 97.5 99 18 124/57 100 06/23/16 17:55 97.2 102 16 117/82 97 06/23/16 16:06 97.0 104 17 127/78 92 06/23/16 12:06 97.2 101 17 112/68 94 06/23/16 08:45 Room Air I/O 06/23/16 06/23/16 06/23/16 06/24/16 06/24/16 06/24/16 07:00 15:00 23:00 07:00 15:00 23:00 Intake Total 240 ml 732 ml 480 ml 480 ml Output Total 1 ml Balance 239 ml 732 ml 480 ml 480 ml Intake Oral 240 ml 480 ml 480 ml 480 ml IV Total 252 ml Output Urine Total 1 ml # Voids 6 6 2 # Bowel Movements 0 2 0 Result Diagram: 06/20/16 0923 06/24/16 0600 Imaging Last Impressions Chest X-Ray 06/19/16 0000 Signed Impressions: Service Date/Time: Sunday, June 19, 2016 16:18 - CONCLUSION: 1. The right mid lung infiltrate is mildly more diffuse. 2. Mild cardiomegaly remains. Gerber Pimentel MD Lumbar Spine X-Ray 06/16/16 0000 Signed Impressions: Service Date/Time: Thursday, June 16, 2016 15:06 - CONCLUSION: 1. Mild degenerative disc change at the L1-2 and L3-4 levels. Gerber Pimentel MD Abdomen Ultrasound 06/13/16 0000 Signed Impressions: Service Date/Time: Monday, June 13, 2016 23:58 - CONCLUSION: Very small volume ascites. Alan Lam Jr., MD Procedures SAHIL Other Results Laboratory Tests Test 06/20/16 06/21/16 06/23/16 06/23/16 09:23 11:30 08:35 15:36 White Blood Count 5.8 TH/MM3 Red Blood Count 4.54 MIL/MM3 Hemoglobin 10.3 GM/DL Hematocrit 33.4 % Mean Corpuscular Volume 73.5 FL Mean Corpuscular Hemoglobin 22.6 PG Mean Corpuscular Hemoglobin 30.7 % Concent Red Cell Distribution Width 20.0 % Platelet Count 191 TH/MM3 Mean Platelet Volume 7.7 FL Sodium Level 136 MEQ/L Potassium Level 4.3 MEQ/L Chloride Level 105 MEQ/L Carbon Dioxide Level 21.8 MEQ/L Anion Gap 9 MEQ/L Blood Urea Nitrogen 11 MG/DL Random Glucose 66 MG/DL Calcium Level 8.9 MG/DL Vancomycin Level Trough 23.2 MCG/ML Random Vancomycin Level 17.5 COMMENT Blood Bank Comment Test 06/24/16 06:00 Prothrombin Time 22.5 SEC Prothromb Time International 2.0 RATIO Ratio Creatinine 1.37 MG/DL Estimat Glomerular Filtration 41 ML/MIN Rate Objective Remarks GENERAL: Obesity, no acute distress. SKIN: Warm and dry. HEAD: Atraumatic. Normocephalic. EYES: Pupils equal and round. No scleral icterus. No injection or drainage. ENT: No nasal bleeding or discharge. Mucous membranes pink and moist. NECK: Trachea midline. No JVD. CARDIOVASCULAR: Regular rate and rhythm. RESPIRATORY: No accessory muscle use. Clear to auscultation. Breath sounds equal bilaterally. GASTROINTESTINAL: Abdomen soft, non-tender, nondistended. Hepatic and splenic margins not palpable. MUSCULOSKELETAL: Extremities without clubbing, cyanosis, or edema. No obvious deformities. NEUROLOGICAL: Awake and alert. No obvious cranial nerve deficits. Motor grossly within normal limits. Five out of 5 muscle strength in the arms and legs. Normal speech. PSYCHIATRIC: Appropriate mood and affect; insight and judgment normal. Medications and IVs Current Medications Medications (Trade) Dose Ordered Sig/Digna Route Start Time Stop Time Status Last Admin (NS Flush) 2 ml UNSCH PRN IV FLUSH 06/13/16 22:30 (NS Flush) 2 ml BID IV FLUSH 06/14/16 09:00 06/23/16 08:43 (Tylenol) 650 mg Q4H PRN PO 06/13/16 22:30 06/14/16 06:40 (Zofran Inj) 4 mg Q6H PRN IVP 06/13/16 22:30 (Narcan Inj) 0.4 mg UNSCH PRN IV 06/13/16 22:30 (Ecotrin Ec) 81 mg DAILY PO 06/14/16 09:00 06/23/16 08:42 (Lasix) 20 mg DAILY PO 06/14/16 09:00 06/23/16 08:42 (Lactulose Liq) 30 ml DAILY PO 06/14/16 09:00 06/23/16 08:42 (Synthroid) 50 mcg DAILY@0600 PO 06/14/16 06:00 06/24/16 05:12 (Prinivil) 2.5 mg DAILY PO 06/14/16 09:00 06/23/16 08:42 (Protonix) 40 mg DAILY PO 06/14/16 09:00 06/23/16 08:42 (Vitamin B1) 100 mg DAILY PO 06/14/16 09:00 06/23/16 08:42 (D50w (Vial) Inj) 25 ml UNSCH PRN IV PUSH 06/13/16 22:45 06/18/16 08:10 (Glucagon Inj) 1 mg UNSCH PRN OTHER 06/13/16 22:45 Miscellaneous 1 ea 1 ea UNSCH PRN OTHER 06/13/16 23:00 (Vancomycin Consult Pharmacy) 0 ml @ 0 mls/hr UNSCH OTHER 06/15/16 09:00 (Lidoderm 5% Patch.12 Hr) 1 patch DAILY T-DERMAL 06/15/16 11:15 06/19/16 08:15 Miscellaneous Information 1 Q24H T-DERMAL 06/15/16 21:00 06/20/16 21:00 (Ultracet 37.5-325 Mg) 1 tab Q8HR PRN PO 06/16/16 13:00 06/24/16 05:12 (Flexeril) 10 mg Q8H PO 06/17/16 12:00 06/24/16 05:12 (Ambien) 5 mg HS PRN PO 06/17/16 11:45 06/23/16 21:10 (Carafate Liq) 1 gm ACHS PO 06/21/16 21:00 06/22/16 11:23 Simethicone 80 mg 80 mg TID CHEW 06/21/16 18:00 06/23/16 17:45 (Vancomycin Inj/ NS 250 ml Inj) 262.5 ml @ 250 mls/hr Q36H IV 06/23/16 13:00 06/23/16 13:49 Miscellaneous Information SPECIFIC LAB TO BE DRAWN:VANCOMYCIN TROUGH DATE TO... ONCE ONCE .XX 06/28/16 00:45 06/28/16 00:46 (Levemir Inj) 5 units Q12HR SQ 06/23/16 21:00 06/23/16 20:28 A/P Assessment and Plan (1) Pulmonary embolism ICD Code: I26.99 Status: Chronic (2) CAD (coronary artery disease) ICD Code: I25.10 Status: Chronic (3) DM (diabetes mellitus) ICD Code: E11.9 Status: Chronic (4) CHF (congestive heart failure) ICD Code: I50.9 Status: Chronic (5) Pneumonia ICD Code: J18.9 Status: Acute (6) COPD (chronic obstructive pulmonary disease) ICD Code: J44.9 Status: Chronic (7) HTN (hypertension) ICD Code: I10 Status: Chronic (8) HLD (hyperlipidemia) ICD Code: E78.5 Status: Chronic Assessment and Plan 45-year-old female with multiple comorbidities presents to the emergency department with increasing shortness of breath. Pneumonia -Patient recently hospitalized with multiple medical comorbidities and new consolidation on chest x-ray and oxygen requirement, -Infectious disease was consulted and Zosyn was discontinued on 06/15/2016 and vancomycin was continued. -patient will need outpatient infusion. until 07/15/16 MRSA bacteremia -on vancomycin and consult ID. --Blood cultures on 06/13 + 05/26 for MRSA, 06/15 02/25 MRSA. 06/17 blood cultures so far negative. SAHIL negative for any vegetation. -per ID if blood cultures negative, to get Walker cath, PICC was not recommended due to poor renal function fluctuation for the last years. Bilateral pulmonary embolism -had Coagulopathy and received Vitamin K, at this time her INR has to be subtherapeutic to place a Walker cath and then discharge Home Cirrhosis/hepatitis C -Abdominal ultrasound showed small amount of ascites. -Continue home lactulose CHF s/p AICD in place stable no signs of Exacerbation. -Last echo done in March 2016 showed an EF of 1020 percent. Repeat echo on 06/15 showed an EF of 20%. -BNP 2326, was 2127 1 month ago CAD -Status post stent placement -Continue aspirin -EKG showed sinus tach, no ST elevations/depressions CKD -Patient with known CKD, Cr 1.37 worsening and following. baseline 1.3 mildly elevated troponin -due to CKD and CHF. -continue to trend. Diabetes Mellitus -continue Levemir and sliding scale. Hypertension -Controlled. Lower back pain -IMPROVED with Flexeril. -Per patient Lidoderm and heating pad does not work and she is ambulating. -X-ray shows mild degenerative joint disease -on tramadol/acetaminophen when necessary. -caution with pain medication due to hx of IVDU. GERD on PPI, Carafate and Simethicone. DVT prophylaxis -on warfarin INR 2.0 try to get it in 1.5 for Walker cath placement. Discharge Planning awaiting to get Walker cath if possible by tomorrow depends of her INR if in 1.[address] the cath and discharge home may need to go on Lovenox and Warfarin. David Guthrie MD June 24, 2016 08:17 Discharge Planning awaiting to get Walker cath if possible by tomorrow depends of her INR if in 1.[address] the cath and discharge home may need to go on Lovenox and Warfarin. David Guthrie MD June 24, 2016 08:17
[2016-06-24] MEDS: THIAMINE HCL 100 MG TAB PO SCH (08:35)
[2016-06-24] MEDS: SIMETHICONE 80 MG CHEWABLE TAB CHEW SCH ×3 (08:35→16:05)
[2016-06-24] MEDS: FUROSEMIDE 20 MG TAB PO SCH (08:35)
[2016-06-24] MEDS: PANTOPRAZOLE SOD 40 MG DELAYED RELEASE TAB PO SCH (08:35)
[2016-06-24] MEDS: LISINOPRIL 5 MG TAB PO SCH (08:35)
[2016-06-24] MEDS: ASPIRIN EC 81 MG TABEC PO SCH (08:36)
[2016-06-24] MEDS: SODIUM CHLORIDE 0.9% FLUSH 10 ML FLUSH IV FLUSH SCH ×2 (08:36→21:21)
[2016-06-24] MEDS: INSULIN DETEMIR 100 UNITS/ML VIAL SQ SCH ×2 (08:36→21:00)
[2016-06-24] MEDS: LACTULOSE SYRUP 20 GM/30 ML CUP PO SCH (08:36)
[2016-06-24] MEDS: LIDOCAINE HCL 5% PATCH T-DERMAL SCH (08:37)
[2016-06-24] MEDS ORDERED: PHYTONADIONE 5 MG TAB PO ONE (09:00)
[2016-06-24] MEDS: REMOVE OLD LIDOCAINE PATCH T-DERMAL SCH (21:00)
[2016-06-24] MEDS: ZOLPIDEM TARTRATE 5 MG TAB PO PRN (21:21)
[2016-06-25] VITALS (11 sets, daily range): BP systolic 110–144; BP diastolic 72–86; PULSE 76–112; RESP 16–18; TEMP 97–98; O2SAT 92–100
[2016-06-25] MEDS: VANCOMYCIN INJ 1,250 MG in SODIUM CHLOR 0.9% 250 ML INJ 250 ML IV SCH (00:57)
[2016-06-25] MEDS: traMADol/ACETAMINOPHEN 37.5/325 1 TAB PO PRN ×2 (05:35→18:03)
[2016-06-25] MEDS: CYCLOBENZAPRINE HCL 10 MG TAB PO SCH ×3 (05:35→20:43)
[2016-06-25] MEDS: LEVOTHYROXINE SODIUM 50 MCG TAB PO SCH (05:36)
[2016-06-25] MEDS: SUCRALFATE 1 GM/10 ML CUP PO SCH ×4 (05:36→20:43)
[2016-06-25] MEDS: INSULIN ASPART SUPPLEMENTAL SCALE SQ SCH ×4 (05:36→20:44)
[2016-06-25 07:15] LABS: APTT (PATIENT) 33.6 SEC (24.3-30.1); INTERNATIONAL NORMALIZED RATIO 2.2 RATIO; PROTHROMBIN TIME - PATIENT 25.2 SEC (9.8-11.6)
[2016-06-25] MEDS: LACTULOSE SYRUP 20 GM/30 ML CUP PO SCH (08:44)
[2016-06-25] MEDS: PANTOPRAZOLE SOD 40 MG DELAYED RELEASE TAB PO SCH (08:44)
[2016-06-25] MEDS: LIDOCAINE HCL 5% PATCH T-DERMAL SCH (08:44)
[2016-06-25] MEDS: FUROSEMIDE 20 MG TAB PO SCH (08:45)
[2016-06-25] MEDS: ASPIRIN EC 81 MG TABEC PO SCH (08:45)
[2016-06-25] MEDS: THIAMINE HCL 100 MG TAB PO SCH (08:45)
[2016-06-25] MEDS: SIMETHICONE 80 MG CHEWABLE TAB CHEW SCH ×3 (08:45→18:00)
[2016-06-25] MEDS: SODIUM CHLORIDE 0.9% FLUSH 10 ML FLUSH IV FLUSH SCH ×2 (08:47→20:43)
[2016-06-25] MEDS: LISINOPRIL 5 MG TAB PO SCH (08:47)
[2016-06-25] MEDS: INSULIN DETEMIR 100 UNITS/ML VIAL SQ SCH ×2 (08:48→20:44)
[2016-06-25] MEDS ORDERED: PHYTONADIONE 10 MG/ML VIAL SQ ONE (11:00)
[2016-06-25] MEDS ORDERED: LIDOCAINE 1%/EPINEPHrine 1:100,000 SOLN 20 ML VIAL ONE (13:35)
[2016-06-25] MEDS ORDERED: fentaNYL CITRATE 250 MCG/5 ML AMP ONE (15:12)
[2016-06-25] MEDS ORDERED: MIDAZOLAM HCL 5 MG/5 ML VIAL ONE (15:12)
[2016-06-25] MEDS ORDERED: SODIUM CHLORIDE 0.9% FLUSH 10 ML FLUSH IVF PRN (16:00)
--- NOTE | 2016-06-25 16:01 | PD.RAD ---
Post Procedure Progress Note Pre Procedure Diagnosis: (1) Liver failure (2) Pneumonia Post Procedure Diagnosis: (1) Liver failure (2) Pneumonia Procedure Date: June 25, 2016 Supervising Radiologist: Ricky Atkinson Estimated blood loss: 10cc Anesthesia: Local, Conscious Sedation Plan of Activity Patient to Unit: Nursing Unit Patient Condition: Poor Additional Comments: Right Ij Walker catheter placed without difficulty Catheter in good position OK for use See PACS Report for procedural detail/treatment Ricky Atkinson MD June 25, 2016 16:01
--- NOTE | 2016-06-25 16:10 | RADRPT ---
EXAM DATE/TIME: 06/25/2016 13:22 [facility] COMPARISON: No previous studies available for comparison. INDICATIONS : Patient is in need of placement of a tunneled central venous catheter for medication administration. MEDICAL HISTORY : History of Hep C, liver cirrhoisis, ascites, bilateral PE, pneumonia, CHF, COPD, CAD, DM, hyperlipide bony, chronic kidney disease. SURGICAL HISTORY : History of ICD placement, cholecystectomy, , tubal ligation, stent placement. ENCOUNTER: Initial ACUITY: 1 week PAIN SCORE: 0/10 FLUORO TIME: 0.3 minutes IMAGE SERIES: 1 SEDATION TIME: 30 minutes ACCESS: Right internal jugular vein SEDATION: 1.) 2.5 mg midazolam (Versed) IV 2.) 125 mcg fentanyl (Sublimaze) IV DEVICE: 1. 6 [place] Walker catheter PROCEDURE : 1. Fluoroscopic guidance. 2. Walker catheter placement 3. Conscious sedation with continuous EKG and oximetry monitoring. The risks, benefits and alternatives to the procedure were explained and verbal and written consent w as obtained. The site was prepped in sterile fashion. Full sterile technique was used, including ca p, mask, sterile gloves and gown and a large sterile sheet. Hand hygiene and 2% chlorhexidine and Be tadine was utilized per protocol for cutaneous antisepsis with appropriate dry time for site. The sk in and subcutaneous tissues were infiltrated with local anesthetic solution. With fluoroscopic guidance a dermatotomy was created in the supraclavicular region. A micropuncture set was used to access to the prescribed vein and serial dilatation was performed to accept a Walker catheter. A subcutaneous tunnel was created and in antegrade fashion the catheter was pulled throug h the tunnel, cut to the appropriate length and place through the sheath. The catheter was locked wi th heparin and sutured in place. Conscious sedation was performed with the prescribed dosages and duration as above in the presence of an independent trained radiology nurse to assist in the monitoring of the patient. EKG and oximetry remained stable throughout the procedure. The patient tolerated the procedure well and there were no complications. The patient was sent to post anesthesia recovery in stable condition. CONCLUSION: Uncomplicated Walker catheter placement as above. Ricky Atkinson MD on June 25, 2016 at 16:07 Board Certified Radiologist. This report was verified electronically.
--- NOTE | 2016-06-25 17:10 | HHI.PR ---
Subjective Remarks This is a pleasant 45 y/o Female with CHF, EF 15-20%, status post AICD, COPD, Hepatitis C, Cirrhosis, CKD III, Bilateral PEs, diagnosed March 2016, on Coumadin, who came to ER with SOB, SAHIL - EF 20% . mild-mod MR. mod TR. no vegetations. digital product specialist Signed off the case. ID specialist following with Diagnosis of MRSA Bacteremia, SAHIL no evidence of Endocarditis Pneumonia partially consolidative infiltrate in the right lung, Sepsis on admission, recommended to get PICC line and discharge on IV Vancomycin for 4 weeks. if blood culture negative. states she has abdominal discomfort and some distention, is having good bowel movements will follow on Simethicone, PPIs and Carafate for GERD. 06/22: Diagnosis of MRSA bacteremia in a patient with AICD device as a possible source of infection, SAHIL no evidence of Endocarditis, Pneumonia patient with partially consolidative infiltrate in the Right lung, sepsis on admission recommended to continue Vancomycin until 07/15, place a Walker Catheter for IV antibiotics. She will come back daily for Infusion center. signed off the case. 06/23: try to improve her INR to place a Walker cath not yet below 1.5 06/24: not yet INR ready 06/25: Seen in her bedroom, wants to go home, her INR today 2.1 given Vitamin K Subcutaneous and FFP by Interventional insurance law specialist No Nausea, vomit or diarrhea. Objective Vital Signs Date Time Temp Pulse Resp B/P Pulse Ox O2 Delivery O2 Flow Rate FiO2 06/25/16 16:25 103 18 111/79 96 06/25/16 16:10 97.0 106 18 116/84 94 06/25/16 12:00 98.0 106 16 112/84 100 06/25/16 09:00 95 Nasal Cannula 2.00 06/25/16 08:00 97.6 110 18 114/80 97 06/25/16 04:00 97.3 109 18 119/83 98 06/25/16 00:00 97.1 112 18 118/80 97 06/24/16 20:15 Room Air 06/24/16 20:00 116 06/24/16 20:00 97.2 113 20 131/83 95 I/O 06/24/16 06/24/16 06/24/16 06/25/16 06/25/16 06/25/16 07:00 15:00 23:00 07:00 15:00 23:00 Intake Total 480 ml 360 ml 490 ml 260 ml Balance 480 ml 360 ml 490 ml 260 ml Intake Oral 480 ml 360 ml 240 ml 0 ml IV Total 260 ml FFP 250 ml # Voids 2 2 0 4 # Bowel Movements 0 1 0 0 Result Diagram: 06/24/16 0600 Imaging Last Impressions Catheter Placement X-Ray 06/25/16 0000 Signed Impressions: Service Date/Time: June 13:22 - CONCLUSION: Uncomplicated Walker catheter placement as above. Ricky Atkinson MD Chest X-Ray 06/19/16 0000 Signed Impressions: Service Date/Time: Sunday, June 19, 2016 16:18 - CONCLUSION: 1. The right mid lung infiltrate is mildly more diffuse. 2. Mild cardiomegaly remains. Gerber Pimentel MD Lumbar Spine X-Ray 06/16/16 0000 Signed Impressions: Service Date/Time: Thursday, June 16, 2016 15:06 - CONCLUSION: 1. Mild degenerative disc change at the L1-2 and L3-4 levels. Gerber Pimentel MD Abdomen Ultrasound 06/13/16 0000 Signed Impressions: Service Date/Time: Monday, June 13, 2016 23:58 - CONCLUSION: Very small volume ascites. Alan Lam Jr., MD Procedures SAHIL Other Results Laboratory Tests Test 06/21/16 06/23/16 06/24/16 06/25/16 11:30 08:35 06:00 06:08 Vancomycin Level Trough 23.2 MCG/ML Random Vancomycin Level 17.5 COMMENT Creatinine 1.37 MG/DL Estimat Glomerular Filtration 41 ML/MIN Rate Prothrombin Time 25.2 SEC Prothromb Time International 2.2 RATIO Ratio Activated Partial 33.6 SEC Thromboplast Time Test 06/25/16 09:38 Blood Bank Comment Objective Remarks GENERAL: Obesity, no acute distress. SKIN: Warm and dry. HEAD: Atraumatic. Normocephalic. EYES: Pupils equal and round. No scleral icterus. No injection or drainage. ENT: No nasal bleeding or discharge. Mucous membranes pink and moist. NECK: Trachea midline. No JVD. CARDIOVASCULAR: Regular rate and rhythm. RESPIRATORY: No accessory muscle use. Clear to auscultation. Breath sounds equal bilaterally. GASTROINTESTINAL: Abdomen soft, non-tender, nondistended. Hepatic and splenic margins not palpable. MUSCULOSKELETAL: Extremities without clubbing, cyanosis, or edema. No obvious deformities. NEUROLOGICAL: Awake and alert. No obvious cranial nerve deficits. Motor grossly within normal limits. Five out of 5 muscle strength in the arms and legs. Normal speech. PSYCHIATRIC: Appropriate mood and affect; insight and judgment normal. Medications and IVs Current Medications Medications (Trade) Dose Ordered Sig/Digna Route Start Time Stop Time Status Last Admin (NS Flush) 2 ml UNSCH PRN IV FLUSH 06/13/16 22:30 (NS Flush) 2 ml BID IV FLUSH 06/14/16 09:00 06/25/16 08:47 (Tylenol) 650 mg Q4H PRN PO 06/13/16 22:30 06/14/16 06:40 (Zofran Inj) 4 mg Q6H PRN IVP 06/13/16 22:30 (Narcan Inj) 0.4 mg UNSCH PRN IV 06/13/16 22:30 (Ecotrin Ec) 81 mg DAILY PO 06/14/16 09:00 06/25/16 08:45 (Lasix) 20 mg DAILY PO 06/14/16 09:00 06/25/16 08:45 (Lactulose Liq) 30 ml DAILY PO 06/14/16 09:00 06/25/16 08:44 (Synthroid) 50 mcg DAILY@0600 PO 06/14/16 06:00 06/25/16 05:36 (Prinivil) 2.5 mg DAILY PO 06/14/16 09:00 06/25/16 08:47 (Protonix) 40 mg DAILY PO 06/14/16 09:00 06/25/16 08:44 (Vitamin B1) 100 mg DAILY PO 06/14/16 09:00 06/25/16 08:45 (D50w (Vial) Inj) 25 ml UNSCH PRN IV PUSH 06/13/16 22:45 06/18/16 08:10 (Glucagon Inj) 1 mg UNSCH PRN OTHER 06/13/16 22:45 Miscellaneous 1 ea 1 ea UNSCH PRN OTHER 06/13/16 23:00 (Vancomycin Consult Pharmacy) 0 ml @ 0 mls/hr UNSCH OTHER 06/15/16 09:00 (Lidoderm 5% Patch.12 Hr) 1 patch DAILY T-DERMAL 06/15/16 11:15 06/25/16 08:44 Miscellaneous Information 1 Q24H T-DERMAL 06/15/16 21:00 06/24/16 21:00 (Ultracet 37.5-325 Mg) 1 tab Q8HR PRN PO 06/16/16 13:00 06/25/16 05:35 (Flexeril) 10 mg Q8H PO 06/17/16 12:00 06/25/16 12:00 (Ambien) 5 mg HS PRN PO 06/17/16 11:45 06/24/16 21:21 (Carafate Liq) 1 gm ACHS PO 06/21/16 21:00 06/24/16 16:00 Simethicone 80 mg 80 mg TID CHEW 06/21/16 18:00 06/25/16 12:19 (Vancomycin Inj/ NS 250 ml Inj) 262.5 ml @ 250 mls/hr Q36H IV 06/23/16 13:00 06/25/16 00:57 Miscellaneous Information SPECIFIC LAB TO BE DRAWN:VANCOMYCIN TROUGH DATE TO... ONCE ONCE .XX 06/26/16 12:45 06/26/16 12:46 (Levemir Inj) 5 units Q12HR SQ 06/23/16 21:00 06/24/16 21:00 (NS Flush) DAILY IVF 06/26/16 09:00 (Heparin Central Flush) DAILY IV FLUSH 06/26/16 09:00 (NS Flush) UNSCH PRN IVF 06/25/16 16:00 (Heparin Central Flush) UNSCH PRN IV FLUSH 06/25/16 16:00 A/P Assessment and Plan (1) Pulmonary embolism ICD Code: I26.99 Status: Chronic (2) CAD (coronary artery disease) ICD Code: I25.10 Status: Chronic (3) DM (diabetes mellitus) ICD Code: E11.9 Status: Chronic (4) CHF (congestive heart failure) ICD Code: I50.9 Status: Chronic (5) Pneumonia ICD Code: J18.9 Status: Acute (6) COPD (chronic obstructive pulmonary disease) ICD Code: J44.9 Status: Chronic (7) HTN (hypertension) ICD Code: I10 Status: Chronic (8) HLD (hyperlipidemia) ICD Code: E78.5 Status: Chronic Assessment and Plan 45-year-old female with multiple comorbidities presents to the emergency department with increasing shortness of breath. Pneumonia -Patient recently hospitalized with multiple medical comorbidities and new consolidation on chest x-ray and oxygen requirement, -Infectious disease was consulted and Zosyn was discontinued on 06/15/2016 and vancomycin was continued. -patient will need outpatient infusion. until 07/15/16 MRSA bacteremia -on vancomycin and consult ID. --Blood cultures on 06/13 + 05/26 for MRSA, 06/15 02/25 MRSA. 06/17 blood cultures so far negative. SAHIL negative for any vegetation. -per ID if blood cultures negative, to get Walker cath, PICC was not recommended due to poor renal function fluctuation for the last years. Bilateral pulmonary embolism -had Coagulopathy and received Vitamin K, at this time her INR has to be subtherapeutic to place a Walker cath and then discharge Home she will go on Lovenox and Warfarin Cirrhosis/hepatitis C -Abdominal ultrasound showed small amount of ascites. -Continue home lactulose CHF s/p AICD in place stable no signs of Exacerbation. -Last echo done in March 2016 showed an EF of 1020 percent. Repeat echo on 06/15 showed an EF of 20%. -BNP 2326, was 2127 1 month ago CAD -Status post stent placement -Continue aspirin -EKG showed sinus tach, no ST elevations/depressions CKD -Patient with known CKD, Cr 1.37 worsening and following. baseline 1.3 mildly elevated troponin -due to CKD and CHF. -continue to trend. Diabetes Mellitus -continue Levemir to 3units BID and sliding scale. Hypertension -Controlled. Lower back pain -IMPROVED with Flexeril. -Per patient Lidoderm and heating pad does not work and she is ambulating. -X-ray shows mild degenerative joint disease -on tramadol/acetaminophen when necessary. -caution with pain medication due to hx of IVDU. GERD on PPI, Carafate and Simethicone. DVT prophylaxis -on warfarin INR 2.1 asked for FFP by interventional Radiology Walker cath placed will follow in am for discharge Discharge Planning Walker placed will follow in am tomorrow for discharge. David Guthrie MD June 25, 2016 17:10
[2016-06-25] MEDS ORDERED: ENOX120P SQ (17:32)
[2016-06-25] MEDS: REMOVE OLD LIDOCAINE PATCH T-DERMAL SCH (20:45)
[2016-06-26] VITALS: BP 110/73; PULSE 107; RESP 18; TEMP 97.4; O2SAT 97
[2016-06-26] MEDS: traMADol/ACETAMINOPHEN 37.5/325 1 TAB PO PRN (03:24)
[2016-06-26 04:00] VITALS: BP 112/79; PULSE 105; RESP 17; TEMP 95.6; O2SAT 96
[2016-06-26] MEDS: LEVOTHYROXINE SODIUM 50 MCG TAB PO SCH (05:14)
[2016-06-26] MEDS: CYCLOBENZAPRINE HCL 10 MG TAB PO SCH ×2 (05:15→12:21)
[2016-06-26] MEDS: SUCRALFATE 1 GM/10 ML CUP PO SCH ×2 (05:16→11:00)
[2016-06-26] MEDS: INSULIN ASPART SUPPLEMENTAL SCALE SQ SCH ×2 (05:51→12:23)
[2016-06-26 08:00] VITALS: BP 90/60; PULSE 101; RESP 20; TEMP 96; O2SAT 94
[2016-06-26 08:14] LABS: INTERNATIONAL NORMALIZED RATIO 1.7 RATIO; PROTHROMBIN TIME - PATIENT 19.4 SEC (9.8-11.6)
--- NOTE | 2016-06-26 08:39 | HHI.PR ---
Subjective Remarks This is a pleasant 45 y/o Female with CHF, EF 15-20%, status post AICD, COPD, Hepatitis C, Cirrhosis, CKD III, Bilateral PEs, diagnosed March 2016, on Coumadin, who came to ER with SOB, SAHIL - EF 20% . mild-mod MR. mod TR. no vegetations. field specialist Signed off the case. ID specialist following with Diagnosis of MRSA Bacteremia, SAHIL no evidence of Endocarditis Pneumonia partially consolidative infiltrate in the right lung, Sepsis on admission, recommended to get PICC line and discharge on IV Vancomycin for 4 weeks. if blood culture negative. states she has abdominal discomfort and some distention, is having good bowel movements will follow on Simethicone, PPIs and Carafate for GERD. 06/22: Diagnosis of MRSA bacteremia in a patient with AICD device as a possible source of infection, SAHIL no evidence of Endocarditis, Pneumonia patient with partially consolidative infiltrate in the Right lung, sepsis on admission recommended to continue Vancomycin until 07/15, place a Walker Catheter for IV antibiotics. She will come back daily for Infusion center. signed off the case. 06/23: try to improve her INR to place a Walker cath not yet below 1.5 06/24: not yet INR ready 06/25: Seen in her bedroom, wants to go home, her INR today 2.1 given Vitamin K Subcutaneous and FFP by Interventional claims support specialist No Nausea, vomit or diarrhea. 06/26: Patient status post Walker cath placed, ready for discharge, INR today 1.7 will get Warfarin today 5 mg and continue 4 mg at home and follow with PCP to continue titration of her medicine will continue Lovenox at home and get PT and INR daily, will come to Infusion center daily and follow her renal function with ID specialist. No nausea, vomit or Diarrhea. Objective Vital Signs Date Time Temp Pulse Resp B/P Pulse Ox O2 Delivery O2 Flow Rate FiO2 06/26/16 08:00 96.0 101 20 90/60 94 06/26/16 04:00 95.6 105 17 112/79 96 06/26/16 00:00 97.4 107 18 110/73 97 06/25/16 20:19 102 06/25/16 20:00 Room Air 06/25/16 20:00 98.0 101 18 112/72 95 06/25/16 20:00 98.0 101 18 112/72 95 06/25/16 16:55 105 18 127/86 96 06/25/16 16:25 103 18 111/79 96 06/25/16 16:10 97.0 106 18 116/84 94 06/25/16 16:00 97.8 100 16 110/81 97 06/25/16 12:00 98.0 106 16 112/84 100 06/25/16 09:00 111 06/25/16 09:00 111 06/25/16 09:00 95 Nasal Cannula 2.00 I/O 06/25/16 06/25/16 06/25/16 06/26/16 06/26/16 06/26/16 07:00 15:00 23:00 07:00 15:00 23:00 Intake Total 260 ml 0 ml 240 ml 480 ml Balance 260 ml 0 ml 240 ml 480 ml Intake Oral 0 ml 0 ml 240 ml 480 ml IV Total 260 ml # Voids 4 2 2 2 # Bowel Movements 0 1 0 0 Result Diagram: 06/24/16 0600 Imaging Last Impressions Catheter Placement X-Ray 06/25/16 0000 Signed Impressions: Service Date/Time: June 13:22 - CONCLUSION: Uncomplicated Walker catheter placement as above. Ricky Atkinson MD Chest X-Ray 06/19/16 0000 Signed Impressions: Service Date/Time: Sunday, June 19, 2016 16:18 - CONCLUSION: 1. The right mid lung infiltrate is mildly more diffuse. 2. Mild cardiomegaly remains. Gerber Pimentel MD Lumbar Spine X-Ray 06/16/16 0000 Signed Impressions: Service Date/Time: Thursday, June 16, 2016 15:06 - CONCLUSION: 1. Mild degenerative disc change at the L1-2 and L3-4 levels. Gerber Pimentel MD Abdomen Ultrasound 06/13/16 0000 Signed Impressions: Service Date/Time: Monday, June 13, 2016 23:58 - CONCLUSION: Very small volume ascites. Alan Lam Jr., MD Procedures SAHIL Other Results Laboratory Tests Test 06/23/16 06/24/16 06/25/16 06/25/16 08:35 06:00 06:08 09:38 Random Vancomycin Level 17.5 COMMENT Creatinine 1.37 MG/DL Estimat Glomerular Filtration 41 ML/MIN Rate Activated Partial 33.6 SEC Thromboplast Time Blood Bank Comment Test 06/26/16 07:40 Prothrombin Time 19.4 SEC Prothromb Time International 1.7 RATIO Ratio Objective Remarks GENERAL: Obesity, no acute distress. SKIN: Warm and dry. HEAD: Atraumatic. Normocephalic. EYES: Pupils equal and round. No scleral icterus. No injection or drainage. ENT: No nasal bleeding or discharge. Mucous membranes pink and moist. NECK: Trachea midline. No JVD. CARDIOVASCULAR: Regular rate and rhythm. RESPIRATORY: No accessory muscle use. Clear to auscultation. Breath sounds equal bilaterally. GASTROINTESTINAL: Abdomen soft, non-tender, nondistended. Hepatic and splenic margins not palpable. MUSCULOSKELETAL: Extremities without clubbing, cyanosis, or edema. No obvious deformities. NEUROLOGICAL: Awake and alert. No obvious cranial nerve deficits. Motor grossly within normal limits. Five out of 5 muscle strength in the arms and legs. Normal speech. PSYCHIATRIC: Appropriate mood and affect; insight and judgment normal. Medications and IVs Current Medications Medications (Trade) Dose Ordered Sig/Digna Route Start Time Stop Time Status Last Admin (NS Flush) 2 ml UNSCH PRN IV FLUSH 06/13/16 22:30 (NS Flush) 2 ml BID IV FLUSH 06/14/16 09:00 06/25/16 20:43 (Tylenol) 650 mg Q4H PRN PO 06/13/16 22:30 06/14/16 06:40 (Zofran Inj) 4 mg Q6H PRN IVP 06/13/16 22:30 (Narcan Inj) 0.4 mg UNSCH PRN IV 06/13/16 22:30 (Ecotrin Ec) 81 mg DAILY PO 06/14/16 09:00 06/25/16 08:45 (Lasix) 20 mg DAILY PO 06/14/16 09:00 06/25/16 08:45 (Lactulose Liq) 30 ml DAILY PO 06/14/16 09:00 06/25/16 08:44 (Synthroid) 50 mcg DAILY@0600 PO 06/14/16 06:00 06/26/16 05:14 (Prinivil) 2.5 mg DAILY PO 06/14/16 09:00 06/25/16 08:47 (Protonix) 40 mg DAILY PO 06/14/16 09:00 06/25/16 08:44 (Vitamin B1) 100 mg DAILY PO 06/14/16 09:00 06/25/16 08:45 (D50w (Vial) Inj) 25 ml UNSCH PRN IV PUSH 06/13/16 22:45 06/18/16 08:10 (Glucagon Inj) 1 mg UNSCH PRN OTHER 06/13/16 22:45 Miscellaneous 1 ea 1 ea UNSCH PRN OTHER 06/13/16 23:00 (Vancomycin Consult Pharmacy) 0 ml @ 0 mls/hr UNSCH OTHER 06/15/16 09:00 (Lidoderm 5% Patch.12 Hr) 1 patch DAILY T-DERMAL 06/15/16 11:15 06/25/16 08:44 Miscellaneous Information 1 Q24H T-DERMAL 06/15/16 21:00 06/24/16 21:00 (Ultracet 37.5-325 Mg) 1 tab Q8HR PRN PO 06/16/16 13:00 06/26/16 03:24 (Flexeril) 10 mg Q8H PO 06/17/16 12:00 06/26/16 05:15 (Ambien) 5 mg HS PRN PO 06/17/16 11:45 06/24/16 21:21 (Carafate Liq) 1 gm ACHS PO 06/21/16 21:00 06/25/16 20:43 Simethicone 80 mg 80 mg TID CHEW 06/21/16 18:00 06/25/16 18:00 (Vancomycin Inj/ NS 250 ml Inj) 262.5 ml @ 250 mls/hr Q36H IV 06/23/16 13:00 06/25/16 00:57 Miscellaneous Information SPECIFIC LAB TO BE DRAWN:VANCOMYCIN TROUGH DATE TO... ONCE ONCE .XX 06/26/16 12:45 06/26/16 12:46 (NS Flush) DAILY IVF 06/26/16 09:00 (Heparin Central Flush) DAILY IV FLUSH 06/26/16 09:00 (NS Flush) UNSCH PRN IVF 06/25/16 16:00 (Heparin Central Flush) UNSCH PRN IV FLUSH 06/25/16 16:00 (Levemir Inj) 3 units Q12HR SQ 06/25/16 21:00 06/25/16 20:44 A/P Assessment and Plan (1) Pulmonary embolism ICD Code: I26.99 Status: Chronic (2) CAD (coronary artery disease) ICD Code: I25.10 Status: Chronic (3) DM (diabetes mellitus) ICD Code: E11.9 Status: Chronic (4) CHF (congestive heart failure) ICD Code: I50.9 Status: Chronic (5) Pneumonia ICD Code: J18.9 Status: Acute (6) COPD (chronic obstructive pulmonary disease) ICD Code: J44.9 Status: Chronic (7) HTN (hypertension) ICD Code: I10 Status: Chronic (8) HLD (hyperlipidemia) ICD Code: E78.5 Status: Chronic Assessment and Plan 45-year-old female with multiple comorbidities presents to the emergency department with increasing shortness of breath. Pneumonia -Patient recently hospitalized with multiple medical comorbidities and new consolidation on chest x-ray and oxygen requirement, -Infectious disease was consulted and Zosyn was discontinued on 06/15/2016 and vancomycin was continued. -patient will need outpatient infusion. until 07/15/16, will start tomorrow in Infusion center for her First outpatient dose of Vancomycin. MRSA bacteremia -on vancomycin and consult ID. --Blood cultures on 06/13 + 05/26 for MRSA, 06/15 02/25 MRSA. 06/17 blood cultures so far negative. SAHIL negative for any vegetation. -per ID if blood cultures negative, to get Walker cath, PICC was not recommended due to poor renal function fluctuation for the last years. Bilateral pulmonary embolism -had Coagulopathy and received Vitamin K, at this time her INR 1.7 given Warfarin 5 mg and will continue Warfarin 4 mg daily at home continue Lovenox until INR therapeutic in 2 or over, hold warfarin if INR in 3 or over. Cirrhosis/hepatitis C -Abdominal ultrasound showed small amount of ascites. -Continue home lactulose CHF s/p AICD in place stable no signs of Exacerbation. -Last echo done in March 2016 showed an EF of 1020 percent. Repeat echo on 06/15 showed an EF of 20%. -BNP 2326, was 2127 1 month ago CAD -Status post stent placement -Continue aspirin -EKG showed sinus tach, no ST elevations/depressions CKD -Patient with known CKD, Cr 1.37 worsening and following. baseline 1.3, as discussed with ID specialist doctor Sreekanth he will monitor and adjust antibiotics. mildly elevated troponin -due to CKD and CHF. -continue to trend. Diabetes Mellitus -continue Levemir to 3units BID and sliding scale. given recommendations to titrate as needed. Hypertension -Controlled. Lower back pain -IMPROVED with Flexeril. -Per patient Lidoderm and heating pad does not work and she is ambulating. -X-ray shows mild degenerative joint disease -on tramadol/acetaminophen when necessary. -caution with pain medication due to hx of IVDU. GERD on PPI, Carafate and Simethicone. DVT prophylaxis -on warfarin INR 1.7 and Lovenox. Discharge Planning Discharge Home today. David Guthrie MD June 26, 2016 08:38
[2016-06-26] MEDS: SIMETHICONE 80 MG CHEWABLE TAB CHEW SCH ×2 (08:52→12:21)
[2016-06-26] MEDS: LISINOPRIL 5 MG TAB PO SCH (08:52)
[2016-06-26] MEDS: LACTULOSE SYRUP 20 GM/30 ML CUP PO SCH (08:52)
[2016-06-26] MEDS: THIAMINE HCL 100 MG TAB PO SCH (08:52)
[2016-06-26] MEDS: PANTOPRAZOLE SOD 40 MG DELAYED RELEASE TAB PO SCH (08:52)
[2016-06-26] MEDS: SODIUM CHLORIDE 0.9% FLUSH 10 ML FLUSH IV FLUSH SCH (08:53)
[2016-06-26] MEDS: ASPIRIN EC 81 MG TABEC PO SCH (08:53)
[2016-06-26] MEDS: FUROSEMIDE 20 MG TAB PO SCH (08:53)
[2016-06-26] MEDS: INSULIN DETEMIR 100 UNITS/ML VIAL SQ SCH (08:57)
[2016-06-26] MEDS: LIDOCAINE HCL 5% PATCH T-DERMAL SCH (08:57)
[2016-06-26] MEDS ORDERED: SODIUM CHLORIDE 0.9% FLUSH 10 ML FLUSH IVF SCH (09:00)
[2016-06-26] MEDS ORDERED: ASPI81TA11 PO (10:42)
[2016-06-26] MEDS ORDERED: LACT10SO PO (10:42)
[2016-06-26] MEDS ORDERED: FURO20TA PO (10:42)
[2016-06-26] MEDS ORDERED: VITA100T2 PO (10:42)
[2016-06-26] MEDS ORDERED: LISI-519 PO (10:42)
[2016-06-26] MEDS ORDERED: WARF-20 PO (10:42)
[2016-06-26] MEDS ORDERED: OMEP40CA2 PO (10:42)
[2016-06-26] MEDS ORDERED: CYCL1TAB29 PO (10:42)
[2016-06-26] MEDS ORDERED: LANTUS2P SQ (10:42)
[2016-06-26] MEDS ORDERED: SIME80CH CHEW (10:42)
[2016-06-26] MEDS ORDERED: METF1000 PO (10:42)
[2016-06-26] MEDS ORDERED: ENOX120P SQ (10:42)
[2016-06-26] MEDS ORDERED: LIDO5DIS35 T-DERMAL (10:42)
[2016-06-26] MEDS ORDERED: LEVO50TA4 PO (10:42)
--- NOTE | 2016-06-26 10:49 | HHI.DS ---
Discharge Summary Admission Date Jun 13, 2016 at 22:07 Discharge Date: June 26, 2016 Admitting Diagnosis pneumonia (1) Pulmonary embolism ICD Code: I26.99 Diagnosis: Principal (2) CAD (coronary artery disease) ICD Code: I25.10 Diagnosis: Secondary (3) DM (diabetes mellitus) ICD Code: E11.9 Diagnosis: Secondary (4) CHF (congestive heart failure) ICD Code: I50.9 Diagnosis: Secondary (5) Pneumonia ICD Code: J18.9 Diagnosis: Principal (6) COPD (chronic obstructive pulmonary disease) ICD Code: J44.9 Diagnosis: Secondary (7) HTN (hypertension) ICD Code: I10 Diagnosis: Secondary (8) HLD (hyperlipidemia) ICD Code: E78.5 Diagnosis: Secondary Procedures Walker cath placement Brief History - From Admission 45-year-old female with a past medical history significant for CHF (last EF 15 20% in March 2016) status post AICD placement, COPD, hepatitis C, cirrhosis, CKD stage III, bilateral PEs diagnosed in March 2016 for which she is currently on Coumadin presents to the emergency department with a 2 day history of shortness of breath. The patient reports that she has been feeling "under the weather" for the past 5 days. She denies any abdominal swelling and states that the swelling in her legs is less than normal. She denies any PND or orthopnea. She states that her shortness of breath is worse when she walks however she also continues to have SOB at rest. She states she has been feeling hot and cold but has not taken her temperature. NBNB nausea and vomiting 1 day. She has a nonproductive cough. On chest x-ray she has new partially consolidative infiltrate in the right midlung. She is tachycardic on arrival to the emergency department however afebrile. She complains of bilateral lower chest pain that is reproducible with palpation. She also complains of mid back pain. Of note, patient does not follow-up with any physicians outpatient as she is currently applying for patient assistance. CBC/BMP: 06/26/16 0740 Significant Findings Laboratory Tests Test 06/24/16 06/25/16 06/26/16 06:00 06:08 07:40 Prothrombin Time 22.5 SEC 25.2 SEC 19.4 SEC (9.8-11.6) (9.8-11.6) (9.8-11.6) Creatinine 1.37 MG/DL 1.60 MG/DL (0.50-1.00) (0.50-1.00) Estimat Glomerular Filtration 41 ML/MIN (>89) 35 ML/MIN (>89) Rate Activated Partial 33.6 SEC Thromboplast Time (24.3-30.1) Imaging Last Impressions Catheter Placement X-Ray 06/25/16 0000 Signed Impressions: Service Date/Time: June 13:22 - CONCLUSION: Uncomplicated Walker catheter placement as above. Ricky Atkinson MD Chest X-Ray 06/19/16 0000 Signed Impressions: Service Date/Time: Sunday, June 19, 2016 16:18 - CONCLUSION: 1. The right mid lung infiltrate is mildly more diffuse. 2. Mild cardiomegaly remains. Gerber Pimentel MD Lumbar Spine X-Ray 06/16/16 0000 Signed Impressions: Service Date/Time: Thursday, June 16, 2016 15:06 - CONCLUSION: 1. Mild degenerative disc change at the L1-2 and L3-4 levels. Gerber Pimentel MD Abdomen Ultrasound 06/13/16 0000 Signed Impressions: Service Date/Time: Monday, June 13, 2016 23:58 - CONCLUSION: Very small volume ascites. Alan Lam Jr., MD PE at Discharge GENERAL: Obesity, no acute distress. SKIN: Warm and dry. HEAD: Atraumatic. Normocephalic. EYES: Pupils equal and round. No scleral icterus. No injection or drainage. ENT: No nasal bleeding or discharge. Mucous membranes pink and moist. NECK: Trachea midline. No JVD. CARDIOVASCULAR: Regular rate and rhythm. RESPIRATORY: No accessory muscle use. Clear to auscultation. Breath sounds equal bilaterally. GASTROINTESTINAL: Abdomen soft, non-tender, nondistended. Hepatic and splenic margins not palpable. MUSCULOSKELETAL: Extremities without clubbing, cyanosis, or edema. No obvious deformities. NEUROLOGICAL: Awake and alert. No obvious cranial nerve deficits. Motor grossly within normal limits. Five out of 5 muscle strength in the arms and legs. Normal speech. PSYCHIATRIC: Appropriate mood and affect; insight and judgment normal. Hospital Course This is a pleasant 45 y/o Female with CHF, EF 15-20%, status post AICD, COPD, Hepatitis C, Cirrhosis, CKD III, Bilateral PEs, diagnosed March 2016, on Coumadin, who came to ER with SOB, SAHIL - EF 20% . mild-mod MR. mod TR. no vegetations. peer support specialist Signed off the case. ID specialist following with Diagnosis of MRSA Bacteremia, SAHIL no evidence of Endocarditis Pneumonia partially consolidative infiltrate in the right lung, Sepsis on admission, recommended to get PICC line and discharge on IV Vancomycin for 4 weeks. if blood culture negative. states she has abdominal discomfort and some distention, is having good bowel movements will follow on Simethicone, PPIs and Carafate for GERD. 06/22: Diagnosis of MRSA bacteremia in a patient with AICD device as a possible source of infection, SAHIL no evidence of Endocarditis, Pneumonia patient with partially consolidative infiltrate in the Right lung, sepsis on admission recommended to continue Vancomycin until 07/15, place a Walker Catheter for IV antibiotics. She will come back daily for Infusion center. signed off the case. 06/23: try to improve her INR to place a Walker cath not yet below 1.5 06/24: not yet INR ready 06/25: Seen in her bedroom, wants to go home, her INR today 2.1 given Vitamin K Subcutaneous and FFP by Interventional yard specialist No Nausea, vomit or diarrhea. 06/26: Patient status post Walker cath placed, ready for discharge, INR today 1.7 will get Warfarin today 5 mg and continue 4 mg at home and follow with PCP to continue titration of her medicine will continue Lovenox at home and get PT and INR daily, will come to Infusion center daily and follow her renal function with ID specialist. No nausea, vomit or Diarrhea. Assessment and Plan 45-year-old female with multiple comorbidities presents to the emergency department with increasing shortness of breath. Pneumonia -Patient recently hospitalized with multiple medical comorbidities and new consolidation on chest x-ray and oxygen requirement, -Infectious disease was consulted and Zosyn was discontinued on 06/15/2016 and vancomycin was continued. -patient will need outpatient infusion. until 07/15/16, will start tomorrow in Infusion center for her First outpatient dose of Vancomycin. MRSA bacteremia -on vancomycin and consult ID. --Blood cultures on 06/13 + 05/26 for MRSA, 06/15 02/25 MRSA. 06/17 blood cultures so far negative. SAHIL negative for any vegetation. -per ID if blood cultures negative, to get Walker cath, PICC was not recommended due to poor renal function fluctuation for the last years. Bilateral pulmonary embolism -had Coagulopathy and received Vitamin K, at this time her INR 1.7 given Warfarin 5 mg and will continue Warfarin 4 mg daily at home continue Lovenox until INR therapeutic in 2 or over, hold warfarin if INR in 3 or over. Cirrhosis/hepatitis C -Abdominal ultrasound showed small amount of ascites. -Continue home lactulose CHF s/p AICD in place stable no signs of Exacerbation. -Last echo done in March 2016 showed an EF of 1020 percent. Repeat echo on 06/15 showed an EF of 20%. -BNP 2326, was 2127 1 month ago CAD -Status post stent placement -Continue aspirin -EKG showed sinus tach, no ST elevations/depressions CKD -Patient with known CKD, Cr 1.37 worsening and following. baseline 1.3, as discussed with ID specialist doctor Dontfraid he will monitor and adjust antibiotics. mildly elevated troponin -due to CKD and CHF. -continue to trend. Diabetes Mellitus -continue Levemir to 3units BID and sliding scale. given recommendations to titrate as needed. Hypertension -Controlled. Lower back pain -IMPROVED with Flexeril. -Per patient Lidoderm and heating pad does not work and she is ambulating. -X-ray shows mild degenerative joint disease -on tramadol/acetaminophen when necessary. -caution with pain medication due to hx of IVDU. GERD on PPI, Carafate and Simethicone. DVT prophylaxis -on warfarin INR 1.7 and Lovenox. Discharge Planning Discharge Home today. Pt Condition on Discharge: Good Discharge Disposition: Discharge Home Discharge Time: > 30 minutes Discharge Instructions DIET: Follow Instructions for: Heart Healthy Diet, Diabetic Diet Activities you can perform: Regular-No Restrictions David Guthrie MD June 26, 2016 10:49
[2016-06-26] MEDS ORDERED: WARFARIN SOD 5 MG TAB PO ONE (11:00)
[2016-06-26 12:00] VITALS: BP 109/78; PULSE 104; RESP 20; TEMP 97; O2SAT 97
[2016-06-26] MEDS ORDERED: PHARMACY ORDERED LAB ONE (12:45)
[2016-06-26] MEDS: VANCOMYCIN INJ 1,250 MG in SODIUM CHLOR 0.9% 250 ML INJ 250 ML IV SCH (14:29)
[2016-06-30] MEDS ORDERED: NITR0.4S SL (10:27)
[2016-06-30] MEDS ORDERED: SPIR25TA PO ×2 (10:27→10:46)
[2016-06-30] MEDS ORDERED: VITA250T25 PO (10:27)
[2016-06-30] MEDS ORDERED: CARV3.12 PO ×2 (10:27→10:46)
[2016-06-30] MEDS ORDERED: LANTUS2P SQ ×2 (10:40→10:47)
[2016-06-30] MEDS ORDERED: LISI-519 PO (10:45)
[2016-06-30] MEDS ORDERED: WARF-20 PO (10:45)
[2016-06-30] MEDS ORDERED: LEVO50TA4 PO (10:46)
[2016-06-30] MEDS ORDERED: FURO20TA PO (10:46)
[2016-07-13] MEDS ORDERED: LANTUS2P SQ (09:53)
[2016-07-13] MEDS ORDERED: VANC1000P IV (09:53)
== END 2016-06-26 16:17 | disposition home or self-care (01) | DRG 871 ==
LOC: NEPE 19:14 → NEDA 22:07 → N04B 06-14 03:45
PROVIDERS: ADMIT Internal Medicine; ATTEND Internal Medicine
PROC: B246ZZ4 Ultrasonography of Right and Left Heart, Transesophageal (ICD-10-PCS; principal; 2016-06-18)
PROC: 30233K1 Transfusion of Nonautologous Frozen Plasma into Peripheral Vein, Percutaneous Approach (ICD-10-PCS; 2016-06-22)
PROC: 05HM33Z Insertion of Infusion Device into Right Internal Jugular Vein, Percutaneous Approach (ICD-10-PCS; 2016-06-25)
DX: A41.02 Sepsis due to Methicillin resistant Staphylococcus aureus (principal); J18.9 Pneumonia, unspecified organism; D68.9 Coagulation defect, unspecified; I13.0 Hypertensive heart and chronic kidney disease with heart failure and stage 1 through stage 4 chronic kidney disease, or unspecified chronic kidney disease; I42.9 Cardiomyopathy, unspecified; N17.9 Acute kidney failure, unspecified; I50.9 Heart failure, unspecified; N18.3 Chronic kidney disease, stage 3 (moderate); E83.51 Hypocalcemia; J44.0 Chronic obstructive pulmonary disease with (acute) lower respiratory infection; E11.22 Type 2 diabetes mellitus with diabetic chronic kidney disease; K74.60 Unspecified cirrhosis of liver; E78.5 Hyperlipidemia, unspecified; I25.10 Atherosclerotic heart disease of native coronary artery without angina pectoris; I08.1 Rheumatic disorders of both mitral and tricuspid valves; B19.20 Unspecified viral hepatitis C without hepatic coma; R00.0 Tachycardia, unspecified; F17.210 Nicotine dependence, cigarettes, uncomplicated; M62.838 Other muscle spasm; M54.5 Low back pain; M19.90 Unspecified osteoarthritis, unspecified site; K21.9 Gastro-esophageal reflux disease without esophagitis; E11.649 Type 2 diabetes mellitus with hypoglycemia without coma; I25.2 Old myocardial infarction; Z79.01 Long term (current) use of anticoagulants; Z79.4 Long term (current) use of insulin; Z86.711 Personal history of pulmonary embolism; Z95.810 Presence of automatic (implantable) cardiac defibrillator; Z95.5 Presence of coronary angioplasty implant and graft
CPT/HCPCS: 36430; 36558; 71010; 72110; 76705; 76937; 77001; 80048; 80053; 80069; 80202; 82550; 82565; 82948; 83880; 84484; 85007; 85027; 85610; 85652; 85730; 86403; 86927; 87040; 87147; 87186; 87205; 93005; 93306; 93312; 93320; 93325; 96374; 96375; 99152; 99153; C1751; J1642; J1815; J2250; J2405; J2543; J3010; J3370; J3430; J7040; J7050; P9017; P9047

== ENCOUNTER → 2016-06-30 | Outpatient (CLI) | payer OTHER ==
[~2016-06-30] MED LIST changes: +ASPI81CH CHEW; +ASPI81TA11 PO; +CARV3.12 PO; +CYCL1TAB29 PO; +ENOX120P SQ; -ENOX60P SQ; +LIDO5DIS35 T-DERMAL; +METF1000 PO; +NITR0.4S SL; -OXYC-392 PO; +SIME80CH CHEW; +SPIR25TA PO; +TRAM50TA PO; +VANC1000P IV; +VITA250T25 PO; +ZOFR4TAB PO
[2016-06-30 13:10] LABS: PROTHROMBIN TIME - PATIENT 35.2 SEC (9.8-11.6)
== END ==
LOC: CLAB 12:47
PROVIDERS: ATTEND Nurse Practitioner Family
DX: I26.99 Other pulmonary embolism without acute cor pulmonale (principal)
CPT/HCPCS: 36415; 85610

== ENCOUNTER 2016-07-14 09:13 | Emergency (ER) | payer OTHER, MEDICAID ==
[~2016-07-14] VITALS: Ht 154.9 cm; Wt 65.0 kg
[~2016-07-14 09:13] MED LIST changes: -ASPI81CH CHEW; -ASPI81TA11 PO; -CYCL1TAB29 PO; -LIDO5DIS35 T-DERMAL; -METF1000 PO; -SIME80CH CHEW; -TRAM50TA PO; -VITA100T2 PO; -VITA250T25 PO; -ZOFR4TAB PO
[2016-07-14 09:14] VITALS: BP 123/75; PULSE 104; RESP 17; TEMP 97.6; O2SAT 97
[2016-07-14 10:15] LABS: MEAN CORPUSCULAR HGB CONC 29.7 % (32.0-36.0)
[2016-07-14] MEDS ORDERED: MORPHINE SULFATE 4 MG/ML INJ IV PUSH ONE (10:15)
[2016-07-14] MEDS ORDERED: ONDANSETRON HCL 4 MG/2 ML VIAL IVP ONE (10:15)
[2016-07-14] MEDS ORDERED: SODIUM CHLORIDE 0.9% FLUSH 10 ML FLUSH IV FLUSH PRN (10:15)
--- NOTE | 2016-07-14 10:25 | PD ---
HPI Chief Complaint: GI Complaint Time Seen by Provider: 09:51 Travel History International Travel<30 days: No Contact w/Intl Traveler<30days: No Traveled to known affect area: No History of Present Illness HPI The patient was seen and examined in the presence of the nurse. This is a 45- year-old patient with a long list of chronic medical problems who complains of epigastric discomfort. Duration 2 days. Severity is moderate. Sometimes it feels to her like when she eats and swallows food he takes a long time to go down into the stomach. She has no vomiting or diarrhea or fever. She is not having chest pain. Some time she feels abdominal bloating. No alleviating factors. She has history of IV drug abuse but says on direct questioning that she has not used since 2009. PFSH Past Medical History Hx Anticoagulant Therapy: Yes (Warfarin) Anemia: No Arthritis: No Asthma: No Autoimmune Disease: No Blood Disorders: No (on warfarin) Bipolar Disorder: No Anxiety: Yes Depression: Yes Heart Rhythm Problems: Yes Cancer: No Cardiac Catheterization: Yes (age 33, defibrillator) Cardiovascular Problems: Yes High Cholesterol: Yes Chemotherapy: No Chest Pain: Yes Congestive Heart Failure: Yes Cirrhosis: Yes (jaundice yesterday noted) COPD: Yes Cerebrovascular Accident: No Coronary Artery Disease: Yes Diabetes: Yes (insulin dependant - uses pen) Patient Takes Glucophage: No (metformin) Diminished Hearing: No Deep Vein Thrombosis: Yes Endocrine: Yes GERD: No Genitourinary: Yes Headaches: No Hepatitis: No Hiatal Hernia: No Hypertension: Yes Immune Disorder: No Kidney Stones: No Musculoskeletal: Yes Neurologic: No Psychiatric: Yes Reproductive: No Respiratory: Yes Migraines: No Myocardial Infarction: Yes (2003) Pancreatitis: No Radiation Therapy: No Renal Failure: Yes Schizophrenia: No Seizures: No Sickle Cell Disease: No Sleep Apnea: No Thyroid Disease: Yes Ulcer: No Tetanus Vaccination: < 5 Years PNEUMOCCOCAL Vaccine (Year): 3 ?: Not LMP: 2 years ago Menopausal: Yes : 5 Para: 3 : 2 Tubal Ligation: Yes Past Surgical History Abdominal Surgery: Yes (cholecystectomy) AICD: Yes (defibrillator,medtronic,patient states unknown when was checked last.) Appendectomy: No Arteriovenous Shunt: No Body Medical Devices: defibrillator Cardiac Surgery: Yes (aicd, cardiac stent) Section: Yes (3) Cholecystectomy: Yes Coronary Artery Bypass Graft: No Coronary Stent: Yes Ear Surgery: No Endocrine Surgery: No Eye Surgery: No Genitourinary Surgery: Yes Gynecologic Surgery: Yes ( section) Insulin Pump: No Joint Replacement: No Oral Surgery: No Pacemaker: No Thoracic Surgery: No Tonsillectomy: No Other Surgery: Yes (abdominal,aicd,appendectomy,cardiac surg,, cholecystectomy,stent,) Social History Alcohol Use: No Tobacco Use: Yes Substance Use: No (not any more. ) Allergies-Medications (Allergen,Severity, Reaction): Coded Allergies: *MDRO Multi-Drug Resistant Organism (Verified Adverse Reaction, Unknown, ) MRSA (blood) - 06/13/16, 06/15/16 Reported Meds & Prescriptions Reported Meds & Active Scripts Active Spironolactone 25 Mg Tab 25 Mg PO DAILY Carvedilol 3.125 Mg Tab 3.125 Mg PO Q12HR Furosemide 20 Mg Tab 20 Mg PO DAILY Levothyroxine (Levothyroxine Sodium) 50 Mcg Tab 50 Mcg PO DAILY Warfarin 4 Mg Tab 4 Mg PO DAILY take one tablet daily this medicine needs daily pt and inr initially and follow with Primary Care physician INR goal 2 to 3 and hold for INR in 3 or over. Lisinopril 5 Mg Tab 2.5 Mg PO DAILY Lovenox Inj (Enoxaparin Sodium) 120 Mg/0.8 Ml Syr 120 Mg SQ DAILY use one amp on daily bases Hold Lovenox once INR in 2 or over. continue daily Warfarin. Omeprazole 40 Mg Cap 40 Mg PO DAILY Lactulose Liq (Lactulose) 10 Gm/15 Ml Soln 30 Ml PO DAILY 30 Days Reported Vancomycin Inj (Vancomycin HCl) 1,000 Mg Inj 1,000 Mg IV DAILY Lantus Inj (Insulin Glargine) 1,000 Unit/10 Ml Vial 1 Units SQ HS Nitrostat SL (Nitroglycerin) 0.4 Mg Subl 0.4 Mg SL DIRECTED PRN 1 tablet under the tongue as needed for chest pain. Repeat every 5 minutes for a total of 3 DOSES or call 911 if NO relief. Review of Systems General / Constitutional: No: Fever Eyes: No: Visual changes HENT: No: Headaches Cardiovascular: No: Chest Pain or Discomfort Respiratory: No: Cough Gastrointestinal: Positive: Nausea, Abdominal Pain Genitourinary: No: Dysuria Musculoskeletal: No: Pain Skin: Positive Change in Pigmentation, No Rash Neurologic: No: Weakness Psychiatric: No: Depression Endocrine: No: Polydipsia Hematologic/Lymphatic: No: Easy Bruising Physical Exam Narrative GENERAL: Well-nourished, well-developed patient in no apparent distress. SKIN: Focused skin assessment reveals no rash and nodules. Skin is Warm and dry. Slightly jaundiced appearance HEAD: Atraumatic. Normocephalic. EYES: Pupils equal and round. No scleral icterus. No injection or drainage. ENT: No nasal bleeding or discharge. Mucous membranes pink and moist. NECK: Trachea midline. No JVD. CARDIOVASCULAR: Regular rate and rhythm. No murmur appreciated. RESPIRATORY: No accessory muscle use. Clear to auscultation. Breath sounds equal bilaterally. GASTROINTESTINAL: Abdomen soft, mild epigastric tenderness without rebound or guarding, nondistended. Hepatic and splenic margins not palpable. MUSCULOSKELETAL: No obvious deformities. No clubbing. No cyanosis. No edema. NEUROLOGICAL: Awake and alert. No obvious cranial nerve deficits. Motor grossly within normal limits. Normal speech. PSYCHIATRIC: Appropriate mood and affect; insight and judgment normal. Data Data Last Documented VS Vital Signs Date Time Temp Pulse Resp B/P Pulse Ox O2 Delivery O2 Flow Rate FiO2 07/14/16 11:18 94 16 108/74 99 Room Air 07/14/16 09:14 97.6 Orders Complete Blood Count With Diff (07/14/16 10:06) Comprehensive Metabolic Panel (07/14/16 10:06) Lipase (07/14/16 10:06) Prothrombin Time / Inr (Pt) (07/14/16 10:06) Iv Access Insert/Monitor (07/14/16 10:06) Ecg Monitoring (07/14/16 10:06) Oximetry (07/14/16 10:06) NPO (07/14/16 10:06) Morphine Inj (Morphine Inj) (07/14/16 10:15) Ondansetron Inj (Zofran Inj) (07/14/16 10:15) Sodium Chloride 0.9% Flush (Ns Flush) (07/14/16 10:15) Electrocardiogram (07/14/16 10:06) Chest, Single Ap (07/14/16 10:06) Phytonadione Inj (Vitamin K Inj) (07/14/16 12:00) Labs Laboratory Tests Test 07/14/16 10:05 White Blood Count 7.2 TH/MM3 Red Blood Count 4.85 MIL/MM3 Hemoglobin 10.7 GM/DL Hematocrit 36.1 % Mean Corpuscular Volume 74.5 FL Mean Corpuscular Hemoglobin 22.1 PG Mean Corpuscular Hemoglobin 29.7 % Concent Red Cell Distribution Width 22.4 % Platelet Count 234 TH/MM3 Mean Platelet Volume 7.4 FL Neutrophils (%) (Auto) 64.2 % Lymphocytes (%) (Auto) 27.2 % Monocytes (%) (Auto) 6.8 % Eosinophils (%) (Auto) 0.4 % Basophils (%) (Auto) 1.4 % Neutrophils # (Auto) 4.6 TH/MM3 Lymphocytes # (Auto) 2.0 TH/MM3 Monocytes # (Auto) 0.5 TH/MM3 Eosinophils # (Auto) 0.0 TH/MM3 Basophils # (Auto) 0.1 TH/MM3 CBC Comment DIFF FINAL Differential Comment Prothrombin Time 175.3 SEC Prothromb Time International 14.1 RATIO Ratio Sodium Level 128 MEQ/L Potassium Level 5.3 MEQ/L Chloride Level 96 MEQ/L Carbon Dioxide Level 17.5 MEQ/L Anion Gap 15 MEQ/L Blood Urea Nitrogen 18 MG/DL Creatinine 1.66 MG/DL Estimat Glomerular Filtration 33 ML/MIN Rate Random Glucose 142 MG/DL Calcium Level 7.9 MG/DL Total Bilirubin 2.1 MG/DL Aspartate Amino Transf 51 U/L (AST/SGOT) Alanine Aminotransferase 27 U/L (ALT/SGPT) Alkaline Phosphatase 92 U/L Total Protein 8.0 GM/DL Albumin 3.2 GM/DL Lipase 115 U/L [facility] Medical Decision Making Medical Screen Exam Complete: Yes Emergency Medical Condition: Yes Medical Record Reviewed: Yes Differential Diagnosis Differential diagnosis includes pancreatitis, biliary colic, hepatitis, GERD, peptic ulcer disease. Narrative Course I have reviewed the patient's electronic medical record. Reviewed her most recent hospitalization. She had an ultrasound of the abdomen May showing minimal ascites but did not require paracentesis IV placed I gave her dose of morphine and Zofran for symptom relief CBC shows similar 10.7 which is good for her Metabolic profile shows hyponatremia 128 likely due to her cirrhosis/CHF. Potassium is at upper limit of normal but hemolyzed. Has renal insufficiency which is chronic LFTs have a bili of 2.1 with essentially normal AST/ALT Lipase is normal INR on Coumadin is a significant elevated at 14. She was given 10 mg subcutaneous vitamin K and will hold her Coumadin for the next 3 days. She will ask her physician to repeat her level on Wednesday. Also holding her aspirin for that time period. She has no active bleeding. I reviewed her chest x-ray which shows no pulmonary edema, stable cardiomegaly I reviewed her EKG shows sinus rhythm without ectopy On recheck patient is doing well. Extended cardiac monitoring reveals sinus rhythm without ectopy I don't see any evidence of acute emergent problem to require hospitalization. She has a lot of chronic severe illnesses but I don't sense anything emergent. She has some degree of ascites by exam but nowhere near requiring paracentesis. Diagnosis Primary Impression: Epigastric pain Additional Impressions: Supratherapeutic INR Hyponatremia Additional Instructions: The patient was advised to follow up with their physician and return if they worsen. The patient was warned about potential sedation for the medications they will receive on prescription. Stop Coumadin and aspirin for 3 days Ask her physician to recheck INR on Wednesday Med/Other Pt SpecificInfo: Prescription(s) given Scripts Ondansetron (Zofran)4 Mg Tab4 Mg PO Q6HR PRN (NAUSEA OR VOMITING) #12 TAB Ref 0 Prov:Carlos Barreto MD 07/14/16 Tramadol 50 Mg Tab50 Mg PO Q6H PRN (PAIN) #20 TAB Ref 0 Prov:Carlos Barreto MD 07/14/16 Disposition: 01 DISCHARGE HOME Condition: Stable Carlos Barreto MD July 14, 2016 10:25
--- NOTE | 2016-07-14 10:36 | RADRPT ---
EXAM DATE/TIME: 07/14/2016 10:14 [facility] COMPARISON: CHEST SINGLE AP, June 19, 2016, 16:18. INDICATIONS : Short of breath, chest pain. Patient states she had nausea and vomiting yesterday. MEDICAL HISTORY : Hypertension. renal failure, diabetes, deep vein thrombosis SURGICAL HISTORY : Defibrillator. Cholecystectomy. Tubal ligation. section ENCOUNTER: Initial ACUITY: 2 days PAIN SCORE: 7/10 LOCATION: Bilateral chest/abdomen. FINDINGS: Portable AP view of the chest demonstrate stable mild enlargement of the cardiac silhouette. Left donal st wall cardiac pacing device/AICD is present. Line overlies the right internal jugular region with d istal tip in the region of the SVC. No effusion, consolidation, or pneumothorax is visualized. The edgar rad and soft tissues demonstrate no acute finding. CONCLUSION: 1. No acute cardiopulmonary abnormality is identified. 2. Stable mild enlargement of the cardiac silhouette. Bernabe Fritz MD on July 14, 2016 at 10:33 Board Certified Radiologist. This report was verified electronically.
[2016-07-14 10:46] LABS: AUTOMATED NEUTROPHIL # 4.6 TH/MM3 (1.8-7.7); BASOPHIL # 0.1 TH/MM3 (0-0.2); BASOPHIL % 1.4 % (0.0-2.0); EOSINOPHIL % 0.4 % (0.0-4.0); HEMATOCRIT 36.1 % (35.0-46.0); HEMO FLAGS DIFF FINAL; LYMPH % 27.2 % (9.0-44.0); MEAN CELL VOLUME 74.5 FL (80.0-100.0); MEAN CORPUSCULAR HEMOGLOBIN 22.1 PG (27.0-34.0); MONO % 6.8 % (0.0-8.0); NEUT % 64.2 % (16.0-70.0); PLATELET COUNT 234 TH/MM3 (150-450); RED BLOOD COUNT 4.85 MIL/MM3 (4.00-5.30); RED CELL DISTRIBUTION WIDTH 22.4 % (11.6-17.2); WHITE BLOOD COUNT 7.2 TH/MM3 (4.0-11.0)
[2016-07-14 10:54] VITALS: BP 114/83; PULSE 93; RESP 18; O2SAT 99
[2016-07-14 10:55] LABS: PROTHROMBIN TIME - PATIENT 175.3 SEC (9.8-11.6)
[2016-07-14 11:07] LABS: INTERNATIONAL NORMALIZED RATIO 14.1 RATIO
[2016-07-14 11:18] VITALS: BP 108/74; PULSE 94; RESP 16; O2SAT 99
[2016-07-14 11:19] LABS: ALKALINE PHOSPHATASE 92 U/L (45-117); ALT (GPT) 27 U/L (10-53); ANION GAP 15 MEQ/L (5-15); AST (GOT) 51 U/L (15-37); BICARBONATE 17.5 MEQ/L (21.0-32.0); BLOOD UREA NITROGEN 18 MG/DL (7-18); CHLORIDE 96 MEQ/L (98-107); GLOMERULAR FILTRATION RATE 33 ML/MIN (>89); POTASSIUM 5.3 MEQ/L (3.5-5.1); SODIUM (NA) 128 MEQ/L (136-145); TOTAL BILIRUBIN ADULT 2.1 MG/DL (0.2-1.0)
[2016-07-14] MEDS ORDERED: PHYTONADIONE INJ 1 MG/0.5 ML AMP SQ ONE (11:30)
[2016-07-14] MEDS ORDERED: PHYTONADIONE 10 MG/ML VIAL SQ ONE ×2 (12:00)
[2016-07-14] MEDS ORDERED: TRAM50TA PO (12:36)
[2016-07-14] MEDS ORDERED: ZOFR4TAB PO (12:36)
[2016-07-14 12:51] VITALS: BP 107/68
--- NOTE | 2016-07-14 20:08 | EKG ---
Date Performed: 07/14/2016 Time Performed: 11:06:51 PTAGE: 45 years EKG: SINUS TACHYCARDIA POSSIBLE LEFT ATRIAL ENLARGEMENT RIGHT ASIS PATTERN CONSISTENT WITH PULMO NARY DISEASE INCOMPLETE RIGHT BUNDLE BRANCH BLOCK RIGHT VENTRICULAR HYPERTROPHY ABNORMAL ECG Compared to prior tracing no significant change DOCTOR: Agustín Pelayo Interpretating Date/Time 07/14/2016 20:07:10
== END 2016-07-14 12:55 | disposition home or self-care (01) ==
LOC: NEPC 09:13
DX: R10.13 Epigastric pain (principal); R79.1 Abnormal coagulation profile; E87.1 Hypo-osmolality and hyponatremia; R94.31 Abnormal electrocardiogram [ECG] [EKG]; E11.9 Type 2 diabetes mellitus without complications; I10 Essential (primary) hypertension; E07.9 Disorder of thyroid, unspecified; N28.9 Disorder of kidney and ureter, unspecified; E78.00 Pure hypercholesterolemia, unspecified; Z72.0 Tobacco use; Z79.4 Long term (current) use of insulin; Z79.01 Long term (current) use of anticoagulants; Z86.79 Personal history of other diseases of the circulatory system; Z87.19 Personal history of other diseases of the digestive system; Z86.59 Personal history of other mental and behavioral disorders; Z86.718 Personal history of other venous thrombosis and embolism; Z87.448 Personal history of other diseases of urinary system; Z87.39 Personal history of other diseases of the musculoskeletal system and connective tissue
CPT/HCPCS: 71010; 80053; 83690; 85025; 85610; 93005; 96372; 96374; 96375; 99285; J2270; J2405; J3430

== ENCOUNTER 2016-07-20 22:30 | Inpatient (IN) | payer MEDICAID, OTHER ==
[~2016-07-20] VITALS: Ht 172.7 cm; Wt 69.0 kg
[~2016-07-20 22:30] MED LIST changes: +TRAM50TA PO; -VANC1000P IV; +ZOFR4TAB PO
[2016-07-20 22:31] VITALS: BP 111/72; PULSE 115; RESP 22; TEMP 98.4; O2SAT 96
[2016-07-20] MEDS ORDERED: ONDANSETRON HCL 4 MG/2 ML VIAL ONE (23:24)
[2016-07-20 23:43] LABS: MEAN CORPUSCULAR HGB CONC 28.5 % (32.0-36.0)
[2016-07-20] MEDS ORDERED: FUROSEMIDE 40 MG/4 ML VIAL IV PUSH ONE (23:45)
[2016-07-20] MEDS ORDERED: SODIUM CHLORIDE 0.9% FLUSH 10 ML FLUSH IV FLUSH PRN (23:45)
[2016-07-20] MEDS ORDERED: ONDANSETRON HCL 4 MG/2 ML VIAL IV ONE (23:45)
[2016-07-20 23:50] VITALS: RESP 20; O2SAT 98
--- NOTE | 2016-07-20 23:57 | PD ---
HPI Chief Complaint: Abdominal Pain Time Seen by Provider: 23:31 Travel History International Travel<30 days: No Contact w/Intl Traveler<30days: No Traveled to known affect area: No History of Present Illness HPI The patient was seen and examined in the presence of the nurse. This patient complains of increased swelling of the abdomen and legs. She was here 6 days ago for a similar presentation but this is worsened. She denies fever. She has not gotten any follow-up since she was here last. Severity is moderate. No alleviating factors. 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) Patient Takes Glucophage: No Diminished Hearing: No Deep Vein Thrombosis: Yes Endocrine: Yes Gastrointestinal Disorders: Yes GERD: No Genitourinary: Yes Headaches: No Hepatitis: No Hiatal Hernia: No Hypertension: Yes Immune Disorder: No Implanted Vascular Access Dvce: Yes Kidney Stones: No Musculoskeletal: Yes Neurologic: No Psychiatric: Yes Reproductive: No Respiratory: Yes Migraines: No Myocardial Infarction: Yes (2003) Pancreatitis: No Radiation Therapy: No Renal Failure: Yes Schizophrenia: No Seizures: No Sickle Cell Disease: No Sleep Apnea: No Thyroid Disease: Yes Ulcer: No PNEUMOCCOCAL Vaccine (Year): 3 ?: Not Menopausal: Yes : 5 Para: 3 : 2 Tubal Ligation: Yes Past Surgical History Abdominal Surgery: Yes (cholecystectomy) AICD: Yes (defibrillator,medtronic,patient states unknown when was checked last.) Appendectomy: No Arteriovenous Shunt: No Body Medical Devices: defibrillator Cardiac Surgery: Yes (aicd, cardiac stent) Section: Yes (3) Cholecystectomy: Yes Coronary Artery Bypass Graft: No Coronary Stent: Yes Ear Surgery: No Endocrine Surgery: No Eye Surgery: No Genitourinary Surgery: Yes Gynecologic Surgery: Yes ( section) Insulin Pump: No Joint Replacement: No Neurologic Surgery: No Oral Surgery: No Pacemaker: No Thoracic Surgery: No Tonsillectomy: No Other Surgery: Yes (abdominal,aicd,appendectomy,cardiac surg,, cholecystectomy,stent,) Social History Alcohol Use: No Tobacco Use: Yes (3 per day) Substance Use: No (not any more. ) Allergies-Medications (Allergen,Severity, Reaction): Coded Allergies: *MDRO Multi-Drug Resistant Organism (Verified Adverse Reaction, Unknown, ) MRSA (blood) - 06/13/16, 06/15/16 Reported Meds & Prescriptions Reported Meds & Active Scripts Active Zofran (Ondansetron HCl) 4 Mg Tab 4 Mg PO Q6HR PRN Tramadol (Tramadol HCl) 50 Mg Tab 50 Mg PO Q6H PRN Spironolactone 25 Mg Tab 25 Mg PO DAILY Carvedilol 3.125 Mg Tab 3.125 Mg PO Q12HR Furosemide 20 Mg Tab 20 Mg PO DAILY Levothyroxine (Levothyroxine Sodium) 50 Mcg Tab 50 Mcg PO DAILY Warfarin 4 Mg Tab 4 Mg PO DAILY take one tablet daily this medicine needs daily pt and inr initially and follow with Primary Care physician INR goal 2 to 3 and hold for INR in 3 or over. Lisinopril 5 Mg Tab 2.5 Mg PO DAILY Lovenox Inj (Enoxaparin Sodium) 120 Mg/0.8 Ml Syr 120 Mg SQ DAILY use one amp on daily bases Hold Lovenox once INR in 2 or over. continue daily Warfarin. Omeprazole 40 Mg Cap 40 Mg PO DAILY Lactulose Liq (Lactulose) 10 Gm/15 Ml Soln 30 Ml PO DAILY 30 Days Reported Lantus Inj (Insulin Glargine) 1,000 Unit/10 Ml Vial 1 Units SQ HS Nitrostat SL (Nitroglycerin) 0.4 Mg Subl 0.4 Mg SL DIRECTED PRN 1 tablet under the tongue as needed for chest pain. Repeat every 5 minutes for a total of 3 DOSES or call 911 if NO relief. Review of Systems General / Constitutional: No: Fever Eyes: No: Visual changes HENT: No: Headaches Cardiovascular: Positive: Edema, No: Chest Pain or Discomfort Respiratory: No: Shortness of Breath Gastrointestinal: Positive: Nausea, Abdominal Pain Genitourinary: No: Dysuria Musculoskeletal: Positive: Edema, No: Pain Skin: Positive Change in Pigmentation, No Rash Neurologic: No: Weakness Psychiatric: No: Depression Endocrine: No: Polydipsia Hematologic/Lymphatic: No: Easy Bruising Physical Exam Narrative GENERAL: Well-nourished, well-developed patient in no apparent distress. SKIN: Focused skin assessment reveals no rash and nodules. Skin is Warm and dry. Possibly a hint of jaundice HEAD: Atraumatic. Normocephalic. EYES: Pupils equal and round. Possibly a bit of scleral icterus. No injection or drainage. ENT: No nasal bleeding or discharge. Mucous membranes pink and moist. NECK: Trachea midline. No JVD. CARDIOVASCULAR: Regular rate and rhythm. No murmur appreciated. RESPIRATORY: No accessory muscle use. Clear to auscultation. Breath sounds equal bilaterally. GASTROINTESTINAL: Abdomen soft, suspicion of ascites based on exam, no rebound or guarding , nondistended. Hepatic and splenic margins not palpable. MUSCULOSKELETAL: No obvious deformities. No clubbing. No cyanosis. Symmetric pitting edema from the knees down. Some edema of the upper legs as well. NEUROLOGICAL: Awake and alert. No obvious cranial nerve deficits. Motor grossly within normal limits. Normal speech. PSYCHIATRIC: Appropriate mood and affect; insight and judgment normal. Data Data Last Documented VS Vital Signs Date Time Temp Pulse Resp B/P Pulse Ox O2 Delivery O2 Flow Rate FiO2 07/21/16 00:07 72 20 121/64 98 07/20/16 22:31 98.4 Room Air Orders Ondansetron Inj (Zofran Inj) (07/20/16 23:24) Complete Blood Count With Diff (07/20/16 23:38) Comprehensive Metabolic Panel (07/20/16 23:38) Lipase (07/20/16 23:38) Prothrombin Time / Inr (Pt) (07/20/16 23:38) Iv Access Insert/Monitor (07/20/16 23:38) Ecg Monitoring (07/20/16 23:38) Oximetry (07/20/16 23:38) Sodium Chloride 0.9% Flush (Ns Flush) (07/20/16 23:45) Furosemide Inj (Lasix Inj) (07/20/16 23:45) Ondansetron Inj (Zofran Inj) (07/20/16 23:45) Admit Order (Ed Use Only) (07/21/16 00:45) Labs Laboratory Tests Test 07/20/16 23:30 White Blood Count 5.8 TH/MM3 Red Blood Count 4.56 MIL/MM3 Hemoglobin 10.1 GM/DL Hematocrit 35.3 % Mean Corpuscular Volume 77.4 FL Mean Corpuscular Hemoglobin 22.1 PG Mean Corpuscular Hemoglobin 28.5 % Concent Red Cell Distribution Width 23.9 % Platelet Count 205 TH/MM3 Mean Platelet Volume 7.5 FL Neutrophils (%) (Auto) 68.0 % Lymphocytes (%) (Auto) 20.7 % Monocytes (%) (Auto) 10.1 % Eosinophils (%) (Auto) 0.0 % Basophils (%) (Auto) 1.2 % Neutrophils # (Auto) 4.0 TH/MM3 Lymphocytes # (Auto) 1.2 TH/MM3 Monocytes # (Auto) 0.6 TH/MM3 Eosinophils # (Auto) 0.0 TH/MM3 Basophils # (Auto) 0.1 TH/MM3 CBC Comment DIFF FINAL Differential Comment Prothrombin Time 19.9 SEC Prothromb Time International 1.8 RATIO Ratio Sodium Level 129 MEQ/L Potassium Level 5.3 MEQ/L Chloride Level 94 MEQ/L Carbon Dioxide Level 15.9 MEQ/L Anion Gap 19 MEQ/L Blood Urea Nitrogen 22 MG/DL Creatinine 2.02 MG/DL Estimat Glomerular Filtration 26 ML/MIN Rate Random Glucose 93 MG/DL Calcium Level 8.5 MG/DL Total Bilirubin 2.4 MG/DL Aspartate Amino Transf 46 U/L (AST/SGOT) Alanine Aminotransferase 30 U/L (ALT/SGPT) Alkaline Phosphatase 101 U/L Total Protein 8.1 GM/DL Albumin 3.4 GM/DL Lipase 154 U/L [facility] Medical Decision Making Medical Screen Exam Complete: Yes Emergency Medical Condition: Yes Medical Record Reviewed: Yes Differential Diagnosis Liver failure, renal failure, CHF Narrative Course I have reviewed the patient's electronic medical record. Reviewed her visit and lab studies from 6 days ago IV placed CBC is stable and shows mild anemia Metabolic profile continues to worsen as her anion gap is getting larger and her creatinine is climbing LFTs show worsening bilirubin up to 2.4 Lipase is normal INR on Coumadin is 1.8 but she has held it for the last 6 days I gave her 60 mg IV Lasix Her clinical presentation is anasarca with liver failure. I don't think she is in CHF. She has trouble obtaining follow-up at [facility]. She is clearly worsening and I am going to put her in the hospital to try to stabilize this worsening multisystem failure. I reviewed with the hospitalist who will admit Diagnosis Primary Impression: Anasarca Additional Impression: Liver failure Qualified Code: K72.10 - Chronic liver failure without hepatic coma Admitting Information Admitting Physician Requests: Admit Carlos Barreto MD July 20, 2016 23:57
[2016-07-21] VITALS (11 sets, daily range): BP systolic 92–137; BP diastolic 54–73; PULSE 71–105; RESP 18–20; TEMP 97.6–98; O2SAT 94–100
[2016-07-21 00:07] LABS: BASOPHIL # 0.1 TH/MM3 (0-0.2); BASOPHIL % 1.2 % (0.0-2.0); HEMATOCRIT 35.3 % (35.0-46.0); HEMO FLAGS DIFF FINAL; LYMPH % 20.7 % (9.0-44.0); LYMPHOCYTE # 1.2 TH/MM3 (1.0-4.8); MEAN CELL VOLUME 77.4 FL (80.0-100.0); MEAN CORPUSCULAR HEMOGLOBIN 22.1 PG (27.0-34.0); MONO % 10.1 % (0.0-8.0); PLATELET COUNT 205 TH/MM3 (150-450); RED BLOOD COUNT 4.56 MIL/MM3 (4.00-5.30); RED CELL DISTRIBUTION WIDTH 23.9 % (11.6-17.2); WHITE BLOOD COUNT 5.8 TH/MM3 (4.0-11.0)
[2016-07-21 00:13] LABS: INTERNATIONAL NORMALIZED RATIO 1.8 RATIO; PROTHROMBIN TIME - PATIENT 19.9 SEC (9.8-11.6)
[2016-07-21 00:23] LABS: ALT (GPT) 30 U/L (10-53); ANION GAP 19 MEQ/L (5-15); AST (GOT) 46 U/L (15-37); BICARBONATE 15.9 MEQ/L (21.0-32.0); BLOOD UREA NITROGEN 22 MG/DL (7-18); CHLORIDE 94 MEQ/L (98-107); GLOMERULAR FILTRATION RATE 26 ML/MIN (>89); POTASSIUM 5.3 MEQ/L (3.5-5.1); SODIUM (NA) 129 MEQ/L (136-145)
[2016-07-21 00:24] LABS: ALKALINE PHOSPHATASE 101 U/L (45-117); TOTAL BILIRUBIN ADULT 2.4 MG/DL (0.2-1.0)
[2016-07-21] MEDS ORDERED: SODIUM CHLORIDE 0.9% FLUSH 10 ML FLUSH IV FLUSH PRN (01:00)
[2016-07-21] MEDS ORDERED: NALOXONE HCL 0.4 MG/ML AMP IV PRN (01:00)
--- NOTE | 2016-07-21 01:55 | HHI.HP ---
[facility] Primary [facility]ician No Primary Care Physician Admission Diagnosis anasarca,liver failure Diagnoses: Chief Complaint: BLE edema and abdominal pain Travel History International Travel<30 Days: No Contact w/Intl Traveler <30 Da: No Traveled to Known Affected Are: No History of Present Illness Written by Itzel Traylor, acting as scribe for Dr. Molina on 07/21/16 at 01: 55. This is a 45-year-old female with a past medical history significant for CHF ( last EF 1520% in March 2016) status post AICD placement, COPD, hepatitis C, cirrhosis, CKD stage III, bilateral PEs diagnosed in March 2016 for which she is currently on Coumadin and hypothyroidism presents to the emergency department with progressive worsening BLE edema, increased abdominal distension and SOB. SOB worse with exertion. Associated with vomiting that stated today. "Everything I try to eat keeps coming up." Patient denies black coffee ground emesis or bright red blood. Patient also complaints of abdominal pain located in the epigastric area. Describes pain as a continual sharp pressure. Abdominal pain improves with certain positions. Worsens with laying flat. Patient denies constipation or diarrhea. Patient reports decrease urine output. Denies paracentesis in the past. Patient has gain 6-8 pounds over the past week. Of note patient has right sided tunneled Walker catheter which was placed by IR 06/25/16 last flushed Wednesday07/15/16 Review of Systems Except as stated in HPI: all other systems reviewed are Neg Past Family Social History Past Medical History Hepatitis C Cirrhosis Chronic kidney disease Hypertension Hyperlipidemia Coronary artery disease cardiac stent CHF AICD COPD IDDM Hypothyroidism Past Surgical History 3 Tubal ligation Cholecystectomy Cardiac stent placement AICD placement Reported Medications Zofran (Ondansetron HCl) 4 Mg Tab 4 Mg PO Q6HR PRN Tramadol (Tramadol HCl) 50 Mg Tab 50 Mg PO Q6H PRN Spironolactone 25 Mg Tab 25 Mg PO DAILY Carvedilol 3.125 Mg Tab 3.125 Mg PO Q12HR Furosemide 20 Mg Tab 20 Mg PO DAILY Levothyroxine (Levothyroxine Sodium) 50 Mcg Tab 50 Mcg PO DAILY Warfarin 4 Mg Tab 4 Mg PO DAILY take one tablet daily this medicine needs daily pt and inr initially and follow with Primary Care physician INR goal 2 to 3 and hold for INR in 3 or over. Lisinopril 5 Mg Tab 2.5 Mg PO DAILY Lovenox Inj (Enoxaparin Sodium) 120 Mg/0.8 Ml Syr 120 Mg SQ DAILY use one amp on daily bases Hold Lovenox once INR in 2 or over. continue daily Warfarin. Omeprazole 40 Mg Cap 40 Mg PO DAILY Lactulose Liq (Lactulose) 10 Gm/15 Ml Soln 30 Ml PO DAILY 30 Days Lantus Inj (Insulin Glargine) 1,000 Unit/10 Ml Vial 1 Units SQ HS Nitrostat SL (Nitroglycerin) 0.4 Mg Subl 0.4 Mg SL DIRECTED PRN 1 tablet under the tongue as needed for chest pain. Repeat every 5 minutes for a total of 3 DOSES or call 911 if NO relief. Allergies: Coded Allergies: *MDRO Multi-Drug Resistant Organism (Verified Adverse Reaction, Unknown, ) MRSA (blood) - 06/13/16, 06/15/16 Active Ordered Medications Current Medications Medications (Trade) Dose Ordered Sig/Digna Route Start Time Stop Time Status Last Admin (NS Flush) 2 ml UNSCH PRN IV FLUSH 07/21/16 01:00 (NS Flush) 2 ml BID IV FLUSH 07/21/16 09:00 (Narcan Inj) 0.4 mg UNSCH PRN IV 07/21/16 01:00 Family History Mom with leukemia, dad with CAD. paternal grandmother secondary to [place] at 34 year old Social History Patient has smoked for the past 30 years, currently smoking 3 cigarettes per day is working on quitting. Has a remote history of IV meth use in 2008. Denies any alcohol ever. Physical Exam Vital Signs Vital Signs Date Time Temp Pulse Resp B/P Pulse Ox O2 Delivery O2 Flow Rate FiO2 07/21/16 01:25 101 20 100/61 99 07/21/16 00:07 72 20 121/64 98 07/20/16 23:50 20 98 07/20/16 23:00 20 07/20/16 22:31 98.4 115 22 111/72 96 Room Air Physical Exam GENERAL: This is a well-nourished, well-developed patient, appears uncomfortable and SOB with conversation SKIN: faint yellowing of skin, multiple scattered tattoos HEAD: Atraumatic. Normocephalic. No temporal or scalp tenderness. EYES: Extraocular motions intact. No scleral icterus. No injection or drainage. ENT: Nose without bleeding, purulent drainage or septal hematoma. Throat without erythema, tonsillar hypertrophy or exudate. Uvula midline. Airway patent. NECK: Trachea midline. Positive JVD. Supple, nontender, no meningeal signs. CARDIOVASCULAR: Regular rate and rhythm without murmurs, gallops, or rubs. RESPIRATORY: Clear to auscultation. Breath sounds equal bilaterally. No wheezes , rales, or rhonchi. GASTROINTESTINAL: Abdomen soft, generalized tenderness, distended. MUSCULOSKELETAL: No calf tenderness. Negative Homans sign bilaterally. 4+ BLE putting edema NEUROLOGICAL: Awake and alert. Motor and sensory grossly within normal limits. 4 out of 5 muscle strength in all muscle groups. Normal speech. Laboratory Laboratory Tests Test 07/20/16 23:30 White Blood Count 5.8 Red Blood Count 4.56 Hemoglobin 10.1 Hematocrit 35.3 Mean Corpuscular Volume 77.4 Mean Corpuscular Hemoglobin 22.1 Mean Corpuscular Hemoglobin 28.5 Concent Red Cell Distribution Width 23.9 Platelet Count 205 Mean Platelet Volume 7.5 Neutrophils (%) (Auto) 68.0 Lymphocytes (%) (Auto) 20.7 Monocytes (%) (Auto) 10.1 Eosinophils (%) (Auto) 0.0 Basophils (%) (Auto) 1.2 Neutrophils # (Auto) 4.0 Lymphocytes # (Auto) 1.2 Monocytes # (Auto) 0.6 Eosinophils # (Auto) 0.0 Basophils # (Auto) 0.1 CBC Comment DIFF FINAL Differential Comment Prothrombin Time 19.9 Prothromb Time International 1.8 Ratio Sodium Level 129 Potassium Level 5.3 Chloride Level 94 Carbon Dioxide Level 15.9 Anion Gap 19 Blood Urea Nitrogen 22 Creatinine 2.02 Estimat Glomerular Filtration 26 Rate Random Glucose 93 Calcium Level 8.5 Total Bilirubin 2.4 Aspartate Amino Transf 46 (AST/SGOT) Alanine Aminotransferase 30 (ALT/SGPT) Alkaline Phosphatase 101 Total Protein 8.1 Albumin 3.4 Lipase 154 Result Diagram: 5/29/17 2330 5/29/17 2330 Assessment and Plan Problem List: (1) Anasarca ICD Code: R60.1 Status: Acute (2) Ascites ICD Code: R18.8 Status: Acute (3) CHF (congestive heart failure) ICD Code: I50.9 Status: Chronic Assessment and Plan This is a 45-year-old female with a past medical history significant for CHF ( last EF 1520% in March 2016) status post AICD placement, COPD, hepatitis C, cirrhosis, CKD stage III, bilateral PEs diagnosed in March 2016 for which she is currently on Coumadin and hypothyroidism presents to the emergency department with progressive worsening BLE edema, increased abdominal distension , abdominal pain, SOB and vomiting Patient has gain about 8 pounds in the past week. Anasarca hepatitis C with cirrhosis s/p Lasix 60mg IV given in ER abdominal US Spirolactone, lasix and lactulose recent PE 03/2016 Subtherapeutic INR 1.8 continue Coumadin with pharmacy to dose chronic systolic CHF (last EF 1520% in March 2016) status post AICD placement continue lisinopril 2.5mg by mouth daily, carvedilol, spironolactone and lasix DM- insulin dependent accuchecks ACHS with SSI coverage COPD duonebs as needed hypothyroidism continue Synthroid recent Bacteremia 2D echocardiogram ordered and pending completed IV abx 07/15/[address]-flush per protocol DVT prophylaxis patient is on Coumadin Discussed with ER provider, nursing and patient Physician Certification 2 Midnight Certification Type: Admission for Inpatient Services Order for Inpatient Services The services are ordered in accordance with Medicare regulations or non- Medicare payer requirements, as applicable. In the case of services not specified as inpatient-only, they are appropriately provided as inpatient services in accordance with the 2-midnight benchmark. Estimated LOS (days): 3 days is the estimated time the patient will need to remain in the hospital, assuming treatment plan goals are met and no additional complications. Post-Hospital Plan: Home Itzel Traylor July 21, 2016 01:55
[2016-07-21] MEDS: MORPHINE SULFATE 4 MG/ML INJ IV PUSH PRN ×7 (02:30→22:06)
[2016-07-21] MEDS ORDERED: GLUCAGON 1 MG/ML VIAL OTHER PRN (02:30)
[2016-07-21] MEDS ORDERED: ONDANSETRON ODT 4 MG TAB PO PRN (02:30)
[2016-07-21] MEDS ORDERED: DEXTROSE 50% IN WATER 50 ML VIAL(D50) IV PRN (02:30)
[2016-07-21] MEDS ORDERED: SODIUM CHLORIDE 0.9% FLUSH 10 ML FLUSH IVF PRN (02:45)
[2016-07-21] MEDS: LEVOTHYROXINE SODIUM 50 MCG TAB PO SCH (05:29)
[2016-07-21] MEDS: INSULIN ASPART SUPPLEMENTAL SCALE SQ SCH ×4 (06:22→21:00)
[2016-07-21 07:59] LABS: BICARBONATE 20.2 MEQ/L (21.0-32.0); POTASSIUM 4.5 MEQ/L (3.5-5.1)
[2016-07-21] MEDS: PANTOPRAZOLE SOD 40 MG DELAYED RELEASE TAB PO SCH (08:25)
[2016-07-21] MEDS: CARVEDILOL 3.125 MG TAB PO SCH ×2 (08:25→22:07)
[2016-07-21] MEDS: SPIRONOLACTONE 25 MG TAB PO SCH (08:26)
[2016-07-21] MEDS: LISINOPRIL 5 MG TAB PO SCH (08:26)
[2016-07-21] MEDS: FUROSEMIDE 20 MG TAB PO SCH (08:26)
[2016-07-21] MEDS: LACTULOSE SYRUP 20 GM/30 ML CUP PO SCH (08:27)
[2016-07-21] MEDS: SODIUM CHLORIDE 0.9% FLUSH 10 ML FLUSH IV FLUSH SCH ×2 (08:31→22:07)
[2016-07-21] MEDS: SODIUM CHLORIDE 0.9% FLUSH 10 ML FLUSH IVF SCH (08:31)
--- NOTE | 2016-07-21 09:39 | RADRPT ---
EXAM DATE/TIME: 07/21/2016 08:07 [facility] COMPARISON: No previous studies available for comparison. INDICATIONS : Abdominal pain and distention, nausea and vomiting. MEDICAL HISTORY : Cirrhosis. Diabetic. CHF. COPD. SURGICAL HISTORY : Pacemaker. Cardiac stent. ENCOUNTER: Initial ACUITY: 4-6 days PAIN SCORE: 7/10 LOCATION: Bilateral upper quadrant MEASUREMENTS: LIVER: 17.8 cm length COMMON DUCT: 5 mm RIGHT KIDNEY: 9.8 X 4.4 X 4.8 cm LEFT KIDNEY: 9.9 X 4.8 X 5.1 cm SPLEEN: 10.0 cm length AORTA: 1.9cm maximal FINDINGS: LIVER: Normal echotexture without focal lesion or ductal dilatation. The portal system is patent. There is a small amount of ascites adjacent to the liver area and COMMON DUCT: No intraluminal mass or stone visualized. GALLBLADDER: Surgically removed. PANCREAS: The visualized portions are within normal limits. RIGHT KIDNEY: No hydronephrosis, stone or mass. LEFT KIDNEY: No hydronephrosis, stone or mass. SPLEEN: No focal lesion. AORTA: Non aneurysmal. IVC: Within normal limits. CONCLUSION: 1. Small amount of ascites adjacent to the liver. 2. Status post cholecystectomy. Leonardo Dunbar MD on July 21, 2016 at 9:36 Board Certified Radiologist. This report was verified electronically.
[2016-07-21] MEDS: ENOXAPARIN SODIUM 60 MG/0.6 ML SYRINGE SQ SCH (11:00)
--- NOTE | 2016-07-21 11:26 | EKG ---
Date Performed: 07/21/2016 Time Performed: 10:49:38 PTAGE: 45 years EKG: Sinus rhythm POSSIBLE LEFT ATRIAL ENLARGEMENT RIGHT AXIS DEVIATION POOR R WAVE PROGRESSION LOW QRS VOLTAGE IN THE LIMB LEADS NONSPECIFIC T WAVE CHANGES ABNORMAL ECG PREVIOUS TRACING : 07/14/2016 11.06 No change from previous tracing noted. DOCTOR: Adonay Gavin Interpretating Date/Time 07/21/2016 11:24:55
--- NOTE | 2016-07-21 13:21 | EC ---
Study Study Date:07/21/2016 STUDY CONCLUSIONS SUMMARY - Left ventricle: The cavity size was mildly to moderately dilated. Wall thickness was normal. Systolic function was severely reduced. The estimated ejection fraction was in the range of 15% to 20%. Diffuse hypokinesis. - Mitral valve: Moderate regurgitation. - Right ventricle: The cavity size was dilated. Systolic function was moderately reduced. - Tricuspid valve: Moderate regurgitation. - Pulmonary arteries: PA peak pressure: 53mm Hg (S). If LV function is below 40, please consider prescribing an ACEI or ARB or document rationale for non-use. PROCEDURE DATA STUDY STATUS: Elective. Procedure: Transthoracic echocardiography. Image quality was good. Scanning was performed from the parasternal, apical, and subcostal acoustic windows. Study completion: The patient tolerated the procedure well. Transthoracic echocardiography. M-mode, complete 2D, complete spectral Doppler, and color Doppler. Height: Height: 68in. Weight: Weight: 142.7lb. Body mass index: BMI: 21.7kg/m^2. Body surface area: BSA: 1.77m^2. Patient status: Inpatient. CARDIAC ANATOMY LEFT VENTRICLE: The cavity size was mildly to moderately dilated. Wall thickness was normal. Systolic function was severely reduced. The estimated ejection fraction was in the range of 15% to 20%. Diffuse hypokinesis. AORTIC VALVE: Trileaflet. Doppler: There was no stenosis. No significant regurgitation. Valve area: 2.05cm^2(VTI). Indexed valve area: 1.16cm^2/m^2 (VTI). Valve area: 2.04cm^2 (Vmax). Indexed valve area: 1.15cm^2/m^2 (Vmax). Mean gradient: 2mm Hg (S). MITRAL VALVE: The valve appears to be grossly normal. No evidence of vegetation. Doppler: There was no evidence for stenosis. Moderate regurgitation. Peak gradient: 4mm Hg (D). RIGHT VENTRICLE: The cavity size was dilated. Pacer wire or catheter noted in right ventricle. Systolic function was moderately reduced. PULMONIC VALVE: Not well visualized. Doppler: There was no evidence for stenosis. Trace to mild regurgitation. TRICUSPID VALVE: The valve appears to be grossly normal. No evidence of vegetation. Doppler: There was no evidence for stenosis. Moderate regurgitation. PERICARDIUM: There was no pericardial effusion. SYSTEMIC VEINS: Inferior vena cava: The vessel was dilated; the respirophasic diameter changes were blunted (< 50%); findings are consistent with elevated central venous pressure. Patient weight: 142.7lb _Ejection fraction:_ 65-75% _Fractional shortening:_ 32% up to 5Kg 5-11.5Kg 11.6-22.9Kg 23-45Kg 45-57Kg Aortic Root 7-13 <17 13-22 17-27 17-27 LA diam 6-13 <23 24-38 33-47 37-40 RVID 10-17 7-15 7-15 7-18 8-17 LVIDd 12-22 <32 24-38 33-47 37-40 LVPW 2-4 3-6 5-7 6-8 7-8 IVS 2-4 3-6 5-7 6-8 7-8 BASIC MEASUREMENTS ADULT NORMAL Left ventricle LV internal dimension, ED, chordal *66.1 mm 43-52 level, PLAX LV internal dimension, ES, chordal *62 mm 23-38 level, PLAX Fractional shortening, chordal level, *6 % >29 PLAX LV posterior wall thickness, ED 7.83 mm IVS/LVPW ratio, ED 1.01 <1.3 Ventricular septum Septal thickness, ED 7.89 mm Aortic valve Leaflet separation 20 mm 15-26 Aorta Root diameter, ED 31 mm Left atrium Anterior-posterior dimension 33 mm Anterior-posterior dimension index 1.86 cm/m^2 <2.2 BASIC MEASUREMENTS ADULT NORMAL Aortic valve Leaflet separation 20 mm 15-26 DOPPLER MEASUREMENTS ADULT NORMAL Main pulmonary artery Pressure, S *53 mm Hg =30 Aortic valve Peak velocity, S 99.3 cm/s Mean velocity, S 73.8 cm/s VTI, S 11.9 cm Mean gradient, S 2 mm Hg Valve area, VTI 2.05 cm^2 Valve area index, VTI 1.16 cm^2/m^2 Valve area, Vmax 2.04 cm^2 Valve area index, Vmax 1.15 cm^2/m^2 Mitral valve Peak E-wave velocity 106 cm/s Peak A-wave velocity 56.8 cm/s Deceleration time *120 ms 150-230 Peak gradient, D 4 mm Hg Peak E/A ratio 1.9 Tricuspid valve Regurgitant peak velocity 332 cm/s Peak RV-RA gradient, S 44 mm Hg Maximal regurgitant velocity 332 cm/s Systemic veins Estimated CVP 10 mm Hg Right ventricle RV pressure, S *54 mm Hg <30 Pulmonic valve Peak velocity, S 56.4 cm/s LEGEND: Mean values are shown as u=mean value. Asterisk (*) godfrey values outside specified normal range. Prepared and signed by Zeke Colvin [id number]
[2016-07-21] MEDS: WARFARIN SOD 4 MG TAB PO SCH (15:04)
[2016-07-21 21:01] LABS: MEAN CORPUSCULAR HGB CONC 29.7 % (32.0-36.0)
[2016-07-22] VITALS (8 sets, daily range): BP systolic 100–132; BP diastolic 71–79; PULSE 73–104; RESP 18–20; TEMP 97.6–98.9; O2SAT 90–100
[2016-07-22] MEDS: MORPHINE SULFATE 4 MG/ML INJ IV PUSH PRN ×4 (01:37→11:49)
[2016-07-22] MEDS: INSULIN ASPART SUPPLEMENTAL SCALE SQ SCH ×4 (06:25→20:48)
[2016-07-22] MEDS: LEVOTHYROXINE SODIUM 50 MCG TAB PO SCH (06:25)
[2016-07-22 07:06] LABS: AUTOMATED NEUTROPHIL # 3.6 TH/MM3 (1.8-7.7); BASOPHIL # 0.1 TH/MM3 (0-0.2); BASOPHIL % 1.1 % (0.0-2.0); EOSINOPHIL % 0.7 % (0.0-4.0); HEMATOCRIT 30.7 % (35.0-46.0); HEMO FLAGS DIFF FINAL; LYMPH % 19.6 % (9.0-44.0); MEAN CELL VOLUME 74.1 FL (80.0-100.0); MEAN CORPUSCULAR HEMOGLOBIN 22.1 PG (27.0-34.0); MONO % 8.7 % (0.0-8.0); NEUT % 69.9 % (16.0-70.0); PLATELET COUNT 163 TH/MM3 (150-450); RED BLOOD COUNT 4.14 MIL/MM3 (4.00-5.30); RED CELL DISTRIBUTION WIDTH 23.8 % (11.6-17.2); WHITE BLOOD COUNT 5.1 TH/MM3 (4.0-11.0)
[2016-07-22] MEDS: SODIUM CHLORIDE 0.9% FLUSH 10 ML FLUSH IVF SCH (09:00)
[2016-07-22] MEDS: LISINOPRIL 5 MG TAB PO SCH (09:20)
[2016-07-22] MEDS: CARVEDILOL 3.125 MG TAB PO SCH ×2 (09:20→20:31)
[2016-07-22] MEDS: LACTULOSE SYRUP 20 GM/30 ML CUP PO SCH (09:20)
[2016-07-22] MEDS: PANTOPRAZOLE SOD 40 MG DELAYED RELEASE TAB PO SCH (09:20)
[2016-07-22] MEDS: FUROSEMIDE 20 MG TAB PO SCH (09:21)
[2016-07-22] MEDS: ENOXAPARIN SODIUM 60 MG/0.6 ML SYRINGE SQ SCH (09:22)
[2016-07-22] MEDS: SODIUM CHLORIDE 0.9% FLUSH 10 ML FLUSH IV FLUSH SCH ×2 (09:23→20:30)
[2016-07-22] MEDS: SPIRONOLACTONE 25 MG TAB PO SCH (09:24)
[2016-07-22] MEDS ORDERED: FUROSEMIDE 20 MG/2 ML VIAL IV PUSH ONE (12:00)
[2016-07-22 14:15] LABS: AUTOMATED NEUTROPHIL # 3.3 TH/MM3 (1.8-7.7); BASOPHIL # 0.1 TH/MM3 (0-0.2); BASOPHIL % 1.4 % (0.0-2.0); EOSINOPHIL % 0.2 % (0.0-4.0); HEMATOCRIT 30.8 % (35.0-46.0); HEMO FLAGS DIFF FINAL; LYMPH % 20.8 % (9.0-44.0); MEAN CELL VOLUME 74.2 FL (80.0-100.0); MEAN CORPUSCULAR HEMOGLOBIN 22.7 PG (27.0-34.0); MEAN CORPUSCULAR HGB CONC 30.6 % (32.0-36.0); MONO % 9.6 % (0.0-8.0); PLATELET COUNT 178 TH/MM3 (150-450); RED BLOOD COUNT 4.15 MIL/MM3 (4.00-5.30); RED CELL DISTRIBUTION WIDTH 23.3 % (11.6-17.2); WHITE BLOOD COUNT 4.9 TH/MM3 (4.0-11.0)
[2016-07-22 14:30] LABS: ANION GAP 11 MEQ/L (5-15)
[2016-07-22 14:58] LABS: ALKALINE PHOSPHATASE 90 U/L (45-117); ALT (GPT) 25 U/L (10-53); AST (GOT) 34 U/L (15-37); BICARBONATE 23.8 MEQ/L (21.0-32.0); BLOOD UREA NITROGEN 17 MG/DL (7-18); CHLORIDE 89 MEQ/L (98-107); GLOMERULAR FILTRATION RATE 41 ML/MIN (>89); POTASSIUM 4.6 MEQ/L (3.5-5.1); TOTAL BILIRUBIN ADULT 1.6 MG/DL (0.2-1.0)
[2016-07-22] MEDS: WARFARIN SOD 4 MG TAB PO SCH (15:19)
[2016-07-22 18:21] LABS: SODIUM (NA) 124 MEQ/L (136-145)
--- NOTE | 2016-07-22 18:36 | HHI.PR ---
Subjective Remarks Patient says she is feeling medicine yesterday. Denies any chest pain. She says abdominal distention is a little bit better. Edema about the same. Objective Vital Signs Date Time Temp Pulse Resp B/P Pulse Ox O2 Delivery O2 Flow Rate FiO2 07/22/16 16:00 97.7 73 20 100/72 94 07/22/16 12:00 98.3 101 20 112/71 98 07/22/16 08:16 18 07/22/16 08:00 98.3 104 20 132/79 97 07/22/16 07:00 Room Air 07/22/16 04:00 98.9 99 18 103/74 97 07/22/16 00:00 97.8 100 18 103/72 99 07/21/16 20:16 99 07/21/16 20:00 98.0 88 20 95/67 97 07/21/16 20:00 98.0 88 20 95/67 97 07/21/16 19:46 Room Air I/O 07/21/16 07/21/16 07/21/16 07/22/16 07/22/16 07/22/16 07:00 15:00 23:00 07:00 15:00 23:00 Intake Total 240 ml 482 ml 360 ml Output Total 100 ml 600 ml 300 ml 500 ml 2500 ml Balance 140 ml -118 ml -300 ml -500 ml -2140 ml Intake Oral 240 ml 480 ml 360 ml IV Total 2 ml Output Urine Total 100 ml 600 ml 300 ml 500 ml 2500 ml # Bowel Movements 0 0 1 Result Diagram: 07/22/16 1330 07/22/16 1330 Imaging Last Impressions Abdomen Ultrasound 07/21/16 0000 Signed Impressions: Service Date/Time: Thursday, July 21, 2016 08:07 - CONCLUSION: 1. Small amount of ascites adjacent to the liver. 2. Status post cholecystectomy. Leonardo Dunbar MD Objective Remarks GENERAL: Patient sitting in bed. Appears generally uncomfortable. Alert and oriented 3. SKIN: Warm and dry. HEAD: Normocephalic. EYES: No scleral icterus. No injection or drainage. NECK: Supple, trachea midline. No JVD CARDIOVASCULAR: Regular rate and rhythm without murmurs, gallops, or rubs. RESPIRATORY: Breath sounds equal bilaterally. No accessory muscle use. GASTROINTESTINAL: Abdomen soft, non-tender, nondistended. MUSCULOSKELETAL: No cyanosis. 2+ bilateral lower extremity edema. No erythema. No broken skin. BACK: No Ntender without obvious deformity. No CVA tenderness. A/P Assessment and Plan =====07/22/16 //CHF exacerbation.. Suspect CHF exacerbation. Patient does not adhere to any kind of regimen. Discussed daily weights and fluid restriction. Echocardiogram with EF 15 to 20.. BNP elevated, however less so than in the past. Will continue careful diuresis. Consult cardiology. //Hyponatremia. Acute on chronic. Sodium 124. Worsens likely secondary to diuresis. Will follow-up tomorrow //Continue Lovenox bridging to warfarin for recent PE. This is a 45-year-old female with a past medical history significant for CHF ( last EF 1520% in March 2016) status post AICD placement, COPD, hepatitis C, cirrhosis, CKD stage III, bilateral PEs diagnosed in March 2016 for which she is currently on Coumadin and hypothyroidism presents to the emergency department with progressive worsening BLE edema, increased abdominal distension , abdominal pain, SOB and vomiting Patient has gain about 8 pounds in the past week. //Anasarca //hepatitis C with cirrhosis s/p Lasix 60mg IV given in ER abdominal US Continue Spirolactone, lasix and lactulose //recent PE 03/2016 //Subtherapeutic INR 1.8 on admit continue Coumadin with pharmacy to dose //chronic systolic CHF -Suspect CHF exacerbation. Patient does not adhere to any kind of regimen. Discussed daily weights and fluid restriction. Echocardiogram with EF 15 to 20.. BNP elevated, however less so than in the past. Will continue careful diuresis. Consult cardiology. //DM- insulin dependent -Glucose reviewed and acceptable. Continue accuchecks ACHS with SSI coverage //COPD con duonebs as needed //Hyponatremia. Acute on chronic. Sodium 124. Worsens likely secondary to diuresis. Will follow-up tomorrow //hypothyroidism continue Synthroid //recent MRSA Bacteremia -2D echocardiogram with EF 15-20% no vegetations. completed IV abx 5/24/[address]-flush per protocol //prophy. On therapeutic bridging for PE. Cem Roldan MD July 22, 2016 18:36
[2016-07-22] MEDS ORDERED: MORPHINE SULFATE 4 MG/ML INJ IV PUSH ONE ×2 (19:30→23:30)
[2016-07-22] MEDS ORDERED: MAGNESIUM OXIDE 400 MG TAB PO ONE (21:30)
[2016-07-22] MEDS ORDERED: MAGNESIUM SULFATE 1 GM PREMIX 100 ML IV ONE (21:30)
[2016-07-22] MEDS: diphenhydrAMINE HCL 25 MG CAP PO PRN (23:08)
[2016-07-22] MEDS: RESP: ALBUTEROL 2.5 MG/IPRATROPIUM 0.5 MG NEB (PRN) NEB (23:41)
[2016-07-23] VITALS (8 sets, daily range): BP systolic 89–102; BP diastolic 50–74; PULSE 80–102; RESP 18–20; TEMP 97.3–99.2; O2SAT 94–100
[2016-07-23] MEDS: LEVOTHYROXINE SODIUM 50 MCG TAB PO SCH (05:33)
[2016-07-23] MEDS: INSULIN ASPART SUPPLEMENTAL SCALE SQ SCH ×4 (05:35→20:43)
[2016-07-23 06:03] LABS: AUTOMATED NEUTROPHIL # 3.2 TH/MM3 (1.8-7.7); BASOPHIL # 0.1 TH/MM3 (0-0.2); BASOPHIL % 1.5 % (0.0-2.0); EOSINOPHIL % 0.1 % (0.0-4.0); HEMATOCRIT 28.7 % (35.0-46.0); HEMO FLAGS DIFF FINAL; INTERNATIONAL NORMALIZED RATIO 1.8 RATIO; LYMPH % 21.9 % (9.0-44.0); MEAN CELL VOLUME 72.9 FL (80.0-100.0); MEAN CORPUSCULAR HEMOGLOBIN 22.9 PG (27.0-34.0); MEAN CORPUSCULAR HGB CONC 31.4 % (32.0-36.0); MONO % 8.4 % (0.0-8.0); NEUT % 68.1 % (16.0-70.0); PLATELET COUNT 148 TH/MM3 (150-450); PROTHROMBIN TIME - PATIENT 20.6 SEC (9.8-11.6); RED BLOOD COUNT 3.94 MIL/MM3 (4.00-5.30); WHITE BLOOD COUNT 4.7 TH/MM3 (4.0-11.0)
[2016-07-23 06:22] LABS: BICARBONATE 26.9 MEQ/L (21.0-32.0); MAGNESIUM 1.4 MG/DL (1.5-2.5); POTASSIUM 4.9 MEQ/L (3.5-5.1)
[2016-07-23] MEDS ORDERED: ACETAMINOPHEN 325 MG TAB PO PRN (06:45)
--- NOTE | 2016-07-23 08:08 | MB ---
cc: AKASH KING DATE OF CONSULTATION 07/23/2016 HISTORY This is a 45-year-old woman who was admitted to the hospital for worsening bilateral lower leg edema. She has a long complicated medical history for which, from a cardiac standpoint, again when she was 33 at which time she had an intraluminal stent placed in her coronary arteries. She was found to have a significant cardiomyopathy in 2014 with an EF of 20%. An AICD was inserted. She has no insurance and has not been followed on a regular basis by cardiology. She was seen in the hospital this past March and found to have bilateral pulmonary emboli and has been on warfarin therapy since that time. She notes that she has been faithful with her medical regimen, but has had increasing ankle edema over the past several days. Since her admission to hospital, she has developed a nonproductive cough. She denies any problems with chest pains or shortness of breath. She has had some increasing abdominal distension with some mild nausea and vomiting. No hematemesis or coffee-grounds have been present. Bowel movements have otherwise been unremarkable. Her past medical history is also been significant for cirrhosis secondary to hepatitis C and this was apparently secondary to intravenous drug use in 2008 which she gave up shortly after developing her hepatitis C. She has also had a history of chronic kidney disease stage III which apparently has been stable. No fever or chills have been present. We have been asked to see her in consultation. Chest x-ray has not yet been done. MEDICATIONS Her medications at home have included: 1. Tramadol 2. Spirolactone 25 daily 3. Carvedilol 3.125 mg q12 4. Furosemide 20 mg daily 5. Levothyroxine 50 mcg daily 6. Warfarin on a varying schedule 7. Lisinopril 5 mg daily 8. Lactulose daily 9. Lantus insulin ALLERGIES None SOCIAL HISTORY The patient does not smoke. She has smoked up to a pack of cigarettes per day having stopped a month ago. She does not use recreational drugs. PHYSICAL EXAMINATION Her blood pressure is 90/60, pulse is 100. NECK: There is no neck vein distension. Carotids are normal. LUNGS: Clear. ABDOMEN: Soft. There is some mild distension. There is +1-2 pedal edema. ASSESSMENT The patient has evidence for volume overload. In reviewing her chemistries, I do note that her albumin is quite low at 2.9. Troponins are elevated at 0.20 which probably reflects her cardiomyopathy. She is also rather profoundly hyponatremic. She has been put on fluid restrictions. At this point in time, she clinically does not have congestive failure. I have ordered a chest x-ray for further evaluation. She has been put on fluid restriction. We will see how she does with her sodium in that regard. may also be an alternative to help with her hyponatremia as well as continuing her Spirolactone. While she is in the hospital, we should also consult her AICD rep to interrogate her AICD as this has not been done on a regular basis. MD REJI Temple/CARLOS MANUEL /7:42 AM /7:55 AM
[2016-07-23] MEDS: CARVEDILOL 3.125 MG TAB PO SCH ×2 (08:14→20:43)
[2016-07-23] MEDS: FUROSEMIDE 20 MG TAB PO SCH (08:14)
[2016-07-23] MEDS: PANTOPRAZOLE SOD 40 MG DELAYED RELEASE TAB PO SCH (08:15)
[2016-07-23] MEDS: LISINOPRIL 5 MG TAB PO SCH (08:15)
[2016-07-23] MEDS: LACTULOSE SYRUP 20 GM/30 ML CUP PO SCH (08:16)
[2016-07-23] MEDS: SODIUM CHLORIDE 0.9% FLUSH 10 ML FLUSH IV FLUSH SCH ×2 (08:17→20:42)
[2016-07-23] MEDS: SPIRONOLACTONE 25 MG TAB PO SCH (08:17)
[2016-07-23] MEDS: SODIUM CHLORIDE 0.9% FLUSH 10 ML FLUSH IVF SCH (08:18)
--- NOTE | 2016-07-23 08:34 | RADRPT ---
EXAM DATE/TIME: 07/23/2016 07:44 [facility] COMPARISON: CHEST SINGLE AP, July 14, 2016, 10:14. INDICATIONS : Shortness of breath. MEDICAL HISTORY : Hypertension. Myocardial infarction. Chronic obstructive pulmonary disease. CHF SURGICAL HISTORY : Pacemaker. Coronary artery stent. ENCOUNTER: Subsequent ACUITY: 2 days PAIN SCORE: 0/10 LOCATION: Bilateral chest FINDINGS: Portable AP view of the chest demonstrates stable mild enlargement of the cardiac silhouette. Right I J line distal tip is in the SVC and left chest wall cardiac pacing device/AICD remains present. No ef fusion, consolidation, or pneumothorax is seen. Bones and soft tissues demonstrate no acute finding. CONCLUSION: No acute cardiopulmonary abnormality is identified. There is stable mild enlargement of the cardiac s ilhouette. Bernabe Fritz MD on July 23, 2016 at 8:31 Board Certified Radiologist. This report was verified electronically.
[2016-07-23] MEDS ORDERED: SODIUM PHOSPHATE INJ 15 MMOL in SODIUM CHLORIDE 0.9% INJ 150 ML IV ONE (09:45)
[2016-07-23] MEDS: MAGNESIUM SULFATE 1 GM PREMIX 100 ML IV SCH ×2 (12:29→12:52)
[2016-07-23] MEDS: ENOXAPARIN SODIUM 60 MG/0.6 ML SYRINGE SQ SCH (12:31)
[2016-07-23] MEDS: FERROUS SULFATE 325 MG (65 MG ELEMENTAL IRON) TAB PO SCH ×2 (12:31→20:43)
[2016-07-23 12:37] LABS: BLOOD, URINE NEG (NEG); COMMENT (UR) CULT NOT INDICATED; CULTURE IF INDICATED CULT NOT INDICATED; GLUCOSE,URINE NEG (NEG); HYALINE CAST, URINE 1 /lpf (RARE); KETONE, URINE NEG (NEG); NITRITE,URINE NEG (NEG); SQUAMOUS EPITHELIAL CELL URINE <1 /hpf (0-5); URINE COLOR YELLOW (YELLW/STRAW)
--- NOTE | 2016-07-23 13:38 | RADRPT ---
EXAM DATE/TIME: 07/23/2016 11:59 [facility] COMPARISON: No previous studies available for comparison. INDICATIONS : Stepped on glass 2 weeks ago. MEDICAL HISTORY : None. SURGICAL HISTORY : None. ENCOUNTER: Initial ACUITY: 2 days PAIN SCORE: 10/10 LOCATION: Left foot- plantar surface FINDINGS: 2 views right foot. Bone alignment within normal limits. No evidence of fracture. No radiopaque fore ign body identified. Small plantar and Achilles calcaneal spurs. CONCLUSION: No radiopaque foreign body identified. Tony Clarke MD on July 23, 2016 at 13:35 Board Certified Radiologist. This report was verified electronically.
[2016-07-23] MEDS: WARFARIN SOD 4 MG TAB PO SCH (15:21)
[2016-07-23 19:15] LABS: BICARBONATE 26.4 MEQ/L (21.0-32.0); POTASSIUM 4.7 MEQ/L (3.5-5.1)
[2016-07-23] MEDS: DOCUSATE SODIUM 100 MG CAP PO SCH (20:42)
[2016-07-23] MEDS: diphenhydrAMINE HCL 25 MG CAP PO PRN (22:42)
--- NOTE | 2016-07-23 23:05 | HHI.PR ---
Subjective Remarks Patient seen this morning around 11 AM. Says she is feeling nursing yesterday. She does report right-sided foot pain for the past 2 weeks. She stepped on some glass 2 weeks ago, with some pain, however this resolved., Subsequently has returned in the past few days. She denies any chest pain. She reports that shortness of breath is improving edema improving. Objective Vital Signs Date Time Temp Pulse Resp B/P Pulse Ox O2 Delivery O2 Flow Rate FiO2 07/23/16 21:00 Nasal Cannula 2.00 07/23/16 20:35 100 07/23/16 20:00 97.3 98 20 102/72 100 07/23/16 17:17 20 07/23/16 16:00 97.5 97 18 98/67 94 07/23/16 12:00 98.3 90 18 90/50 96 07/23/16 08:06 96 Nasal Cannula 2.00 07/23/16 08:00 90 07/23/16 08:00 Nasal Cannula 2.00 07/23/16 08:00 98.2 93 18 89/60 96 07/23/16 04:00 99.2 102 20 95/63 95 07/23/16 00:00 98.4 99 19 102/74 98 07/22/16 23:45 90 Nasal Cannula 2.00 I/O 07/22/16 07/22/16 07/22/16 07/23/16 07/23/16 07/23/16 07:00 15:00 23:00 07:00 15:00 23:00 Intake Total 360 ml 200 ml 0 ml 240 ml 120 ml Output Total 500 ml 2500 ml 500 ml 400 ml 1500 ml 200 ml Balance -500 ml -2140 ml -300 ml -400 ml -1260 ml -80 ml Intake Oral 360 ml 200 ml 0 ml 240 ml 120 ml Output Urine Total 500 ml 2500 ml 500 ml 400 ml 1500 ml 200 ml # Voids 2 # Bowel Movements 1 1 Result Diagram: 07/23/16 0539 07/23/16 1820 Objective Remarks GENERAL: Patient sitting in bed. Appears generally uncomfortable. Alert and oriented 3. SKIN: Warm and dry. HEAD: Normocephalic. EYES: No scleral icterus. No injection or drainage. NECK: Supple, trachea midline. No JVD CARDIOVASCULAR: Regular rate and rhythm without murmurs, gallops, or rubs. RESPIRATORY: Breath sounds equal bilaterally. No accessory muscle use. GASTROINTESTINAL: Abdomen soft, non-tender, nondistended. MUSCULOSKELETAL: No cyanosis. 2+ bilateral lower extremity edema. No erythema. No broken skin. posterior lateral right ankle with Band-Aid. Small laceration, some redness, tenderness of right lateral heel. No pus. BACK: No Ntender without obvious deformity. No CVA tenderness. A/P Assessment and Plan ===== 07/23/16 //CHF exacerbation.. -Continues improving with fluid restrictions, diuresis. //Hyponatremia. Acute on chronic. Sodium now 123. Replace magnesium Continue fluid restrictions. Monitor. //Continue Lovenox bridging to warfarin for recent PE. //hypomagnesemia. Magnesium low. Replaced. Possible cause of hyponatremia. Monitor. //right foot laceration over he'll follow with possible foreign body, glass. Foot x-ray negative. Consult placed to General surgery. does not appear to be acutely infected, however could be subacute infection.Hold antibiotics pending surgical eval. This is a 45-year-old female with a past medical history significant for CHF ( last EF 1520% in March 2016) status post AICD placement, COPD, hepatitis C, cirrhosis, CKD stage III, bilateral PEs diagnosed in March 2016 for which she is currently on Coumadin and hypothyroidism presents to the emergency department with progressive worsening BLE edema, increased abdominal distension , abdominal pain, SOB and vomiting Patient has gain about 8 pounds in the past week. //Anasarca //hepatitis C with cirrhosis s/p Lasix 60mg IV given in ER abdominal US Continue Spirolactone, lasix and lactulose //recent PE 03/2016 //Subtherapeutic INR 1.8 on admit continue Coumadin with pharmacy to dose //chronic systolic CHF -Suspect CHF exacerbation. Patient does not adhere to any kind of regimen. Discussed daily weights and fluid restriction. Echocardiogram with EF 15 to 20.. BNP elevated, however less so than in the past. Will continue careful diuresis. Consult cardiology. //DM- insulin dependent -Glucose reviewed and acceptable. Continue accuchecks ACHS with SSI coverage //COPD con duonebs as needed //Hyponatremia. Acute on chronic. Sodium 124. Worsens likely secondary to diuresis. Will follow-up tomorrow //hypothyroidism continue Synthroid //recent MRSA Bacteremia -2D echocardiogram with EF 15-20% no vegetations. completed IV abx 07/15/[address]-flush per protocol //prophy. On therapeutic bridging for PE.INRsubtherapeutic Discharge Planning pending resolution of hyponatremia. Cem Roldan MD Jul 23, 2016 23:05
[2016-07-24] VITALS: BP 104/78; PULSE 97; RESP 20; TEMP 97.4; O2SAT 100
[2016-07-24 04:00] VITALS: BP 99/69; PULSE 97; RESP 20; TEMP 97.7; O2SAT 95
[2016-07-24] MEDS: LEVOTHYROXINE SODIUM 50 MCG TAB PO SCH (05:05)
[2016-07-24 05:34] LABS: AUTOMATED NEUTROPHIL # 4.2 TH/MM3 (1.8-7.7); BASOPHIL # 0.1 TH/MM3 (0-0.2); BASOPHIL % 0.9 % (0.0-2.0); EOSINOPHIL % 0.1 % (0.0-4.0); HEMATOCRIT 29.8 % (35.0-46.0); HEMO FLAGS DIFF FINAL; LYMPH % 23.6 % (9.0-44.0); LYMPHOCYTE # 1.5 TH/MM3 (1.0-4.8); MEAN CORPUSCULAR HEMOGLOBIN 22.2 PG (27.0-34.0); NEUT % 67.4 % (16.0-70.0); PLATELET COUNT 121 TH/MM3 (150-450); RED BLOOD COUNT 4.02 MIL/MM3 (4.00-5.30); RED CELL DISTRIBUTION WIDTH 23.7 % (11.6-17.2); WHITE BLOOD COUNT 6.2 TH/MM3 (4.0-11.0)
[2016-07-24 05:42] LABS: INTERNATIONAL NORMALIZED RATIO 2.1 RATIO; PROTHROMBIN TIME - PATIENT 24.1 SEC (9.8-11.6)
[2016-07-24 05:53] LABS: ALKALINE PHOSPHATASE 83 U/L (45-117); ALT (GPT) 20 U/L (10-53); ANION GAP 10 MEQ/L (5-15); AST (GOT) 31 U/L (15-37); BICARBONATE 26.2 MEQ/L (21.0-32.0); BLOOD UREA NITROGEN 21 MG/DL (7-18); CHLORIDE 89 MEQ/L (98-107); GLOMERULAR FILTRATION RATE 34 ML/MIN (>89); INDIRECT BILIRUBIN 0.5 MG/DL (0.0-0.8); MAGNESIUM 1.9 MG/DL (1.5-2.5); POTASSIUM 4.9 MEQ/L (3.5-5.1); SODIUM (NA) 125 MEQ/L (136-145); TOTAL BILIRUBIN ADULT 1.7 MG/DL (0.2-1.0)
[2016-07-24] MEDS: INSULIN ASPART SUPPLEMENTAL SCALE SQ SCH ×4 (06:13→20:18)
[2016-07-24 06:45] LABS: CALCIUM-PROTEIN CORRECTED 5.1 MG/DL (8.5-10.1)
[2016-07-24 08:00] VITALS: BP 109/66; PULSE 82; RESP 16; TEMP 97.6; O2SAT 97
--- NOTE | 2016-07-24 08:12 | PD.CARD.PN ---
Subjective Subjective Remarks denies chest pain or shortness of breath Objective Vital Signs / I&O Vital Signs Date Time Temp Pulse Resp B/P Pulse Ox O2 Delivery O2 Flow Rate FiO2 07/24/16 04:00 97.7 97 20 99/69 95 07/24/16 00:00 97.4 97 20 104/78 100 07/23/16 21:00 Nasal Cannula 2.00 07/23/16 20:35 100 07/23/16 20:00 80 07/23/16 20:00 97.3 98 20 102/72 100 07/23/16 17:17 20 07/23/16 16:00 97.5 97 18 98/67 94 07/23/16 12:00 98.3 90 18 90/50 96 I/O 07/23/16 07/23/16 07/23/16 07/24/16 07/24/16 07/24/16 07:00 15:00 23:00 07:00 15:00 23:00 Intake Total 0 ml 240 ml 320 ml 120 ml Output Total 400 ml 1500 ml 200 ml 400 ml Balance -400 ml -1260 ml 120 ml -280 ml Intake Oral 0 ml 240 ml 320 ml 120 ml Output Urine Total 400 ml 1500 ml 200 ml 400 ml # Bowel Movements 1 Physical Exam GENERAL: Well-nourished, well-developed patient in no apparent distress. NECK: No JVD. No carotid bruit. CARDIOVASCULAR: Regular rate and rhythm. S1/S2 no murmur, rub, or gallop. RESPIRATORY: No accessory muscle use. Clear to auscultation. Breath sounds equal bilaterally. GASTROINTESTINAL: Abdomen soft, non-tender, nondistended. MUSCULOSKELETAL: Extremities without clubbing, cyanosis, or edema. Laboratory Laboratory Tests Test 07/23/16 07/23/16 07/24/16 12:20 18:20 05:12 Urine Color YELLOW Urine Turbidity CLEAR Urine pH 6.0 Urine Specific [place] 1.005 Urine Protein NEG mg/dL Urine Glucose (UA) NEG mg/dL Urine Ketones NEG mg/dL Urine Occult Blood NEG Urine Nitrite NEG Urine Bilirubin NEG Urine Urobilinogen LESS THAN 2.0 MG/DL Urine Leukocyte Esterase NEG Urine RBC LESS THAN 1 /hpf Urine WBC 1 /hpf Urine Squamous Epithelial <1 /hpf Cells Urine Hyaline Casts 1 /lpf Microscopic Urinalysis Comment CULT NOT INDICATED Sodium Level 122 MEQ/L 125 MEQ/L Potassium Level 4.7 MEQ/L 4.9 MEQ/L Chloride Level 87 MEQ/L 89 MEQ/L Carbon Dioxide Level 26.4 MEQ/L 26.2 MEQ/L Anion Gap 9 MEQ/L 10 MEQ/L Blood Urea Nitrogen 18 MG/DL 21 MG/DL Creatinine 1.46 MG/DL 1.64 MG/DL Estimat Glomerular Filtration 38 ML/MIN 34 ML/MIN Rate Random Glucose 172 MG/DL 157 MG/DL Calcium Level 8.0 MG/DL LESS THAN 5.0 MG/DL White Blood Count 6.2 TH/MM3 Red Blood Count 4.02 MIL/MM3 Hemoglobin 8.9 GM/DL Hematocrit 29.8 % Mean Corpuscular Volume 74.0 FL Mean Corpuscular Hemoglobin 22.2 PG Mean Corpuscular Hemoglobin 30.0 % Concent Red Cell Distribution Width 23.7 % Platelet Count 121 TH/MM3 Mean Platelet Volume 7.0 FL Neutrophils (%) (Auto) 67.4 % Lymphocytes (%) (Auto) 23.6 % Monocytes (%) (Auto) 8.0 % Eosinophils (%) (Auto) 0.1 % Basophils (%) (Auto) 0.9 % Neutrophils # (Auto) 4.2 TH/MM3 Lymphocytes # (Auto) 1.5 TH/MM3 Monocytes # (Auto) 0.5 TH/MM3 Eosinophils # (Auto) 0.0 TH/MM3 Basophils # (Auto) 0.1 TH/MM3 CBC Comment DIFF FINAL Differential Comment Prothrombin Time 24.1 SEC Prothromb Time International 2.1 RATIO Ratio Protein Corrected Calcium 5.1 MG/DL Phosphorus Level 2.7 MG/DL Magnesium Level 1.9 MG/DL Total Bilirubin 1.7 MG/DL Direct Bilirubin 1.2 MG/DL Indirect Bilirubin 0.5 MG/DL Aspartate Amino Transf 31 U/L (AST/SGOT) Alanine Aminotransferase 20 U/L (ALT/SGPT) Alkaline Phosphatase 83 U/L Total Protein 6.9 GM/DL Albumin 2.8 GM/DL Assessment and Plan Problem List: (1) CAD (coronary artery disease) (2) HTN (hypertension) Assessment and Plan chest x-ray shows no evidence of CHF. ICD interrogation sowed one event in the past and none recent. We will sign off, call with further questions Rajat Cha Jul 24, 2016 08:12
[2016-07-24] MEDS: SODIUM CHLORIDE 0.9% FLUSH 10 ML FLUSH IVF SCH (09:00)
[2016-07-24] MEDS: SODIUM CHLORIDE 0.9% FLUSH 10 ML FLUSH IV FLUSH SCH ×2 (09:00→20:18)
[2016-07-24] MEDS: LACTULOSE SYRUP 20 GM/30 ML CUP PO SCH (09:05)
[2016-07-24] MEDS: PANTOPRAZOLE SOD 40 MG DELAYED RELEASE TAB PO SCH (09:05)
[2016-07-24] MEDS: LISINOPRIL 5 MG TAB PO SCH (09:05)
[2016-07-24] MEDS: CARVEDILOL 3.125 MG TAB PO SCH ×2 (09:05→20:18)
[2016-07-24] MEDS: FERROUS SULFATE 325 MG (65 MG ELEMENTAL IRON) TAB PO SCH ×2 (09:05→20:18)
[2016-07-24] MEDS: SPIRONOLACTONE 25 MG TAB PO SCH (09:05)
[2016-07-24] MEDS: DOCUSATE SODIUM 100 MG CAP PO SCH ×2 (09:05→20:18)
[2016-07-24] MEDS: FUROSEMIDE 20 MG TAB PO SCH (09:06)
[2016-07-24] MEDS ORDERED: PILL SPLITTER OTHER PRN (10:15)
[2016-07-24] MEDS ORDERED: CALCIUM GLUCONATE INJ 2 GM in DEXTROSE 5% IN WATER 100ML INJ 100 ML IV ONE ×2 (11:00)
[2016-07-24 12:00] VITALS: BP 112/83; PULSE 90; RESP 16; TEMP 97.6; O2SAT 98
[2016-07-24] MEDS: WARFARIN SOD 4 MG TAB PO SCH (15:54)
[2016-07-24 16:00] VITALS: BP 127/59; PULSE 91; RESP 16; TEMP 97.3; O2SAT 98
[2016-07-24 18:05] LABS: BICARBONATE 23.1 MEQ/L (21.0-32.0)
[2016-07-24 20:00] VITALS: BP 99/70; PULSE 92; RESP 20; TEMP 97.2; O2SAT 96
--- NOTE | 2016-07-24 22:09 | HHI.PR ---
Subjective Remarks Patient seen this morning around 11 AM. She says she is feeling all right. Would like to leave hospital. She is walking around the room. Denies any chest pain, reports shortness of breath better. Right heel still painful, however has not worsened. Objective Vital Signs Date Time Temp Pulse Resp B/P Pulse Ox O2 Delivery O2 Flow Rate FiO2 07/24/16 20:00 97.2 92 20 99/70 96 07/24/16 16:00 97.3 91 16 127/59 98 07/24/16 12:00 97.6 90 16 112/83 98 07/24/16 09:59 Room Air 07/24/16 08:00 97.6 82 16 109/66 97 07/24/16 04:00 97.7 97 20 99/69 95 07/24/16 00:00 97.4 97 20 104/78 100 I/O 07/23/16 07/23/16 07/23/16 07/24/16 07/24/16 07/24/16 07:00 15:00 23:00 07:00 15:00 23:00 Intake Total 0 ml 240 ml 320 ml 120 ml 180 ml Output Total 400 ml 1500 ml 200 ml 400 ml 350 ml Balance -400 ml -1260 ml 120 ml -280 ml -170 ml Intake Oral 0 ml 240 ml 320 ml 120 ml 180 ml Output Urine Total 400 ml 1500 ml 200 ml 400 ml 350 ml # Bowel Movements 1 2 Result Diagram: 07/24/16 0512 07/24/16 1132 Objective Remarks GENERAL: Patient sitting in bed., walking in room. Appears controlled today. Alert and oriented 3. SKIN: Warm and dry. HEAD: Normocephalic. EYES: No scleral icterus. No injection or drainage. NECK: Supple, trachea midline. No JVD CARDIOVASCULAR: Regular rate and rhythm without murmurs, gallops, or rubs. RESPIRATORY: Breath sounds equal bilaterally. No accessory muscle use. GASTROINTESTINAL: Abdomen soft, non-tender, nondistended. MUSCULOSKELETAL: No cyanosis. 2+ bilateral lower extremity edema. No erythema. No broken skin. posterior lateral right ankle with Band-Aid. Small laceration, some redness, tenderness of right lateral heel. No pus. BACK: No Ntender without obvious deformity. No CVA tenderness. A/P Assessment and Plan ==== 07/24/16 //CHF exacerbation.. -Much improved with diuresis. Competition of hyponatremia as below //Hyponatremia. Acute on chronic. Baseline sodium in the 130s. Sodium now 122 today, down from 123.. Yesterday thought that replace magnesium with help, however has not done anything for sodium. Will discontinue furosemide, decrease spironolactone 12.5 daily. Continue fluid restrictions. Monitor. //Recent PE on previous admission. INR 2.1 today. Therapeutic. Lovenox bridge on hold //hypocalcemia. Calcium acutely low this morning in the fives. Possibly secondary to phosphate replacement this morning. Improved with replacement today. Vitamin D and 1, 25 vitamin D ordered and pending //hypomagnesemia. Resolved after replacement. Monitor. //right foot laceration over heel. Painful, however no acute infection or purulence. X-ray with no foreign body. expect healing to improve with edema controlMonitor. This is a 45-year-old female with a past medical history significant for CHF ( last EF 1520% in March 2016) status post AICD placement, COPD, hepatitis C, cirrhosis, CKD stage III, bilateral PEs diagnosed in March 2016 for which she is currently on Coumadin and hypothyroidism presents to the emergency department with progressive worsening BLE edema, increased abdominal distension , abdominal pain, SOB and vomiting Patient has gain about 8 pounds in the past week. //Anasarca //hepatitis C with cirrhosis s/p Lasix 60mg IV given in ER abdominal US Continue Spirolactone, lasix and lactulose. Adjust as necessary. //recent PE 03/2016 //Subtherapeutic INR 1.8 on admit continue Coumadin with pharmacy to dose //chronic systolic CHF -Suspect CHF exacerbation. Patient does not adhere to any kind of regimen. Discussed daily weights and fluid restriction. Echocardiogram with EF 15 to 20.. BNP elevated, however less so than in the past. Will continue careful diuresis. Consult cardiology. //DM- insulin dependent -Glucose reviewed and acceptable. Continue accuchecks ACHS with SSI coverage //COPD con duonebs as needed //Hyponatremia. Acute on chronic. Sodium 124. Worsens likely secondary to diuresis. Will follow-up tomorrow //hypothyroidism continue Synthroid //recent MRSA Bacteremia -2D echocardiogram with EF 15-20% no vegetations. completed IV abx 07/15/[address]-flush per protocol. Patient with history of IV drug use. Remove at discharge. //prophy. On therapeutic bridging for PE.INR therapeutic, holding Lovenox. Discharge Planning pending resolution of hyponatremia. Cem Roldan MD Jul 24, 2016 22:09
[2016-07-24] MEDS: diphenhydrAMINE HCL 25 MG CAP PO PRN (22:33)
[2016-07-25] VITALS (10 sets, daily range): BP systolic 90–104; BP diastolic 53–61; PULSE 79–94; RESP 16–20; TEMP 96.4–98.1; O2SAT 92–100
[2016-07-25] MEDS: LEVOTHYROXINE SODIUM 50 MCG TAB PO SCH (05:28)
[2016-07-25 05:51] LABS: AUTOMATED NEUTROPHIL # 7.4 TH/MM3 (1.8-7.7); BASOPHIL % 0.5 % (0.0-2.0); HEMATOCRIT 31.4 % (35.0-46.0); HEMO FLAGS DIFF FINAL; LYMPH % 13.9 % (9.0-44.0); LYMPHOCYTE # 1.3 TH/MM3 (1.0-4.8); MEAN CELL VOLUME 74.8 FL (80.0-100.0); MEAN CORPUSCULAR HEMOGLOBIN 22.7 PG (27.0-34.0); MEAN CORPUSCULAR HGB CONC 30.3 % (32.0-36.0); MONO % 4.7 % (0.0-8.0); NEUT % 80.9 % (16.0-70.0); PLATELET COUNT 164 TH/MM3 (150-450); RED BLOOD COUNT 4.19 MIL/MM3 (4.00-5.30); RED CELL DISTRIBUTION WIDTH 23.2 % (11.6-17.2); WHITE BLOOD COUNT 9.2 TH/MM3 (4.0-11.0)
[2016-07-25 05:54] LABS: INTERNATIONAL NORMALIZED RATIO 3.9 RATIO; PROTHROMBIN TIME - PATIENT 45.6 SEC (9.8-11.6)
[2016-07-25] MEDS: INSULIN ASPART SUPPLEMENTAL SCALE SQ SCH ×4 (06:03→21:00)
[2016-07-25 06:19] LABS: BICARBONATE 22.1 MEQ/L (21.0-32.0); MAGNESIUM 1.8 MG/DL (1.5-2.5); POTASSIUM 5.2 MEQ/L (3.5-5.1)
[2016-07-25] MEDS: RESP: ALBUTEROL 2.5 MG/IPRATROPIUM 0.5 MG NEB (PRN) NEB ×3 (08:10→20:56)
[2016-07-25] MEDS: LISINOPRIL 5 MG TAB PO SCH (09:00)
[2016-07-25] MEDS: CARVEDILOL 3.125 MG TAB PO SCH ×2 (09:26→21:03)
[2016-07-25] MEDS: SPIRONOLACTONE 25 MG TAB PO SCH (09:26)
[2016-07-25] MEDS: FERROUS SULFATE 325 MG (65 MG ELEMENTAL IRON) TAB PO SCH ×2 (09:27→21:03)
[2016-07-25] MEDS: LACTULOSE SYRUP 20 GM/30 ML CUP PO SCH (09:27)
[2016-07-25] MEDS: DOCUSATE SODIUM 100 MG CAP PO SCH ×2 (09:27→21:00)
[2016-07-25] MEDS: PANTOPRAZOLE SOD 40 MG DELAYED RELEASE TAB PO SCH (09:27)
[2016-07-25] MEDS: SODIUM CHLORIDE 0.9% FLUSH 10 ML FLUSH IVF SCH (09:28)
[2016-07-25] MEDS: SODIUM CHLORIDE 0.9% FLUSH 10 ML FLUSH IV FLUSH SCH ×2 (09:28→21:07)
[2016-07-25] MEDS ORDERED: SODIUM CHLORIDE 1 GRAM TAB PO ONE (15:00)
[2016-07-25] MEDS ORDERED: FUROSEMIDE 20 MG TAB PO ONE (15:00)
--- NOTE | 2016-07-25 15:11 | HHI.PR ---
Subjective Remarks Patient with no complaints at this time. No abd distention. She continues to have LE edema, worse after she was out of bed this morning. Objective Vitals Vital Signs Date Time Temp Pulse Resp B/P Pulse Ox O2 Delivery O2 Flow Rate FiO2 07/25/16 12:00 97.8 85 20 90/53 96 07/25/16 08:11 98 21 07/25/16 08:00 97.8 92 20 95/56 93 07/25/16 04:00 98.1 94 16 104/57 92 07/25/16 00:00 98.1 91 20 99/61 92 07/24/16 21:00 Nasal Cannula 2.00 07/24/16 20:00 97.2 92 20 99/70 96 07/24/16 20:00 92 07/24/16 16:00 97.3 91 16 127/59 98 I/O 07/24/16 07/24/16 07/24/16 07/25/16 07/25/16 07/25/16 07:00 15:00 23:00 07:00 15:00 23:00 Intake Total 120 ml 180 ml 360 ml 0 ml Output Total 400 ml 350 ml 25 ml 150 ml Balance -280 ml -170 ml 335 ml -150 ml Intake Oral 120 ml 180 ml 360 ml 0 ml Output Urine Total 400 ml 350 ml 25 ml 150 ml # Bowel Movements 2 1 1 Result Diagram: 07/25/16 0538 07/25/16 0538 Objective Remarks GENERAL: Patient sitting in bed. Appears controlled today. Alert and oriented 3. SKIN: Warm and dry. HEAD: Normocephalic. EYES: No scleral icterus. No injection or drainage. NECK: Supple, trachea midline. No JVD CARDIOVASCULAR: Regular rate and rhythm without murmurs, gallops, or rubs. 2 + pitting edema over the lower extremities. RESPIRATORY: Breath sounds equal bilaterally. No accessory muscle use. GASTROINTESTINAL: Abdomen soft, non-tender, nondistended. MUSCULOSKELETAL: No cyanosis. 2+ bilateral lower extremity edema. No erythema. No broken skin. posterior lateral right ankle with Band-Aid. Small laceration, some redness, tenderness of right lateral heel. No pus. BACK: No Ntender without obvious deformity. No CVA tenderness. Urinary Catheter: No Vascular Central Line Catheter: No A/P Problem List: (1) Anasarca ICD Code: R60.1 Status: Acute (2) Ascites ICD Code: R18.8 Status: Acute (3) CHF (congestive heart failure) ICD Code: I50.9 Status: Chronic Assessment and Plan This is a 45-year-old female with a past medical history significant for CHF ( last EF 1520% in March 2016) status post AICD placement, COPD, hepatitis C, cirrhosis, CKD stage III, bilateral PEs diagnosed in March 2016 for which she is currently on Coumadin and hypothyroidism presents to the emergency department with progressive worsening BLE edema, increased abdominal distension , abdominal pain, SOB and vomiting Hyponatremia. Acute on chronic. Sodium 121. Worsens likely secondary to diuresis. Avoid hypertonic solution as patient having signs of fluid overload with CHF and cirrhosis Will follow-up tomorrow Hepatitis C with cirrhosis, anasarca -abdominal US c/w ascites -Continue Spirolactone, lasix and lactulose. Adjust as necessary. Pulmonary embolism. 03/2016 -Coumadin, monitor INR Chronic systolic CHF -Suspect CHF exacerbation. Patient does not adhere to any kind of regimen. Discussed daily weights and fluid restriction. Echocardiogram with EF 15 to 20.. BNP elevated, however less so than in the past. Will continue careful diuresis. Consult cardiology. DM- insulin dependent - Continue accuchecks ACHS with SSI coverage COPD -duonebs as needed hypothyroidism -continue Synthroid recent MRSA Bacteremia -2D echocardiogram with EF 15-20% no vegetations. completed IV abx 07/15/[address]-flush per protocol. Patient with history of IV drug use. Remove at discharge. Coumadin hold for INR 3.9 Regular diet HLIV Fluid restrict 1200 ml Discharge Planning pending improved Na, currently on fluid restriction Frances Goodson MD Jul 25, 2016 15:10
[2016-07-25] MEDS: ZOLPIDEM TARTRATE 5 MG TAB PO PRN (23:48)
[2016-07-26] VITALS (8 sets, daily range): BP systolic 89–98; BP diastolic 53–60; PULSE 72–86; RESP 18–20; TEMP 95.7–97.2; O2SAT 92–100
[2016-07-26] MEDS: RESP: ALBUTEROL 2.5 MG/IPRATROPIUM 0.5 MG NEB (PRN) NEB (01:13)
[2016-07-26] MEDS: LEVOTHYROXINE SODIUM 50 MCG TAB PO SCH (05:30)
[2016-07-26] MEDS: INSULIN ASPART SUPPLEMENTAL SCALE SQ SCH ×4 (05:39→21:00)
[2016-07-26 06:10] LABS: INTERNATIONAL NORMALIZED RATIO 3.6 RATIO; PROTHROMBIN TIME - PATIENT 42.5 SEC (9.8-11.6)
[2016-07-26 06:16] LABS: POTASSIUM 4.6 MEQ/L (3.5-5.1)
[2016-07-26] MEDS: LACTULOSE SYRUP 20 GM/30 ML CUP PO SCH (08:53)
[2016-07-26] MEDS: CARVEDILOL 3.125 MG TAB PO SCH ×2 (08:53→21:00)
[2016-07-26] MEDS: FERROUS SULFATE 325 MG (65 MG ELEMENTAL IRON) TAB PO SCH ×2 (08:53→21:00)
[2016-07-26] MEDS: SPIRONOLACTONE 25 MG TAB PO SCH (08:53)
[2016-07-26] MEDS: LISINOPRIL 5 MG TAB PO SCH (08:54)
[2016-07-26] MEDS: PANTOPRAZOLE SOD 40 MG DELAYED RELEASE TAB PO SCH (08:54)
[2016-07-26] MEDS: DOCUSATE SODIUM 100 MG CAP PO SCH ×2 (08:54→21:00)
[2016-07-26] MEDS: SODIUM CHLORIDE 0.9% FLUSH 10 ML FLUSH IVF SCH (08:55)
[2016-07-26] MEDS: SODIUM CHLORIDE 0.9% FLUSH 10 ML FLUSH IV FLUSH SCH ×2 (08:55→21:03)
--- NOTE | 2016-07-26 13:56 | HHI.PR ---
Subjective Remarks Follow-up for hyponatremia Patient is not very cooperative, refuses to wake up though very easily arousable. Says that Walker catheter should've been removed by now. No fever or chills. Objective Vitals Vital Signs Date Time Temp Pulse Resp B/P Pulse Ox O2 Delivery O2 Flow Rate FiO2 07/26/16 11:32 96 21 07/26/16 08:00 97.2 72 20 94/55 96 07/26/16 04:08 Room Air 07/26/16 04:00 97.2 82 18 98/53 100 07/26/16 01:16 92 Nasal Cannula 3.00 07/26/16 00:00 Room Air 07/26/16 00:00 95.7 86 18 92/56 92 07/25/16 21:02 100 Nasal Cannula 3.00 07/25/16 21:00 Nasal Cannula 2.00 07/25/16 20:00 96.4 80 20 100/60 100 07/25/16 20:00 89 07/25/16 16:08 100 Nasal Cannula 3.00 07/25/16 16:00 97.7 79 20 90/60 99 I/O 07/25/16 07/25/16 07/25/16 07/26/16 07/26/16 07/26/16 07:00 15:00 23:00 07:00 15:00 23:00 Intake Total 0 ml 120 ml 120 ml 0 ml Output Total 150 ml 400 ml 300 ml 200 ml Balance -150 ml -280 ml -180 ml -200 ml Intake Oral 0 ml 120 ml 120 ml 0 ml Output Urine Total 150 ml 400 ml 300 ml 200 ml # Bowel Movements 1 1 0 Result Diagram: 07/25/16 0538 07/26/16 0537 Objective Remarks GENERAL: Not in distress EYES: No scleral icterus. No injection or drainage. NECK: Supple, trachea midline. No JVD CARDIOVASCULAR: Regular rate and rhythm without murmurs, gallops, or rubs. 2 + pitting edema over the lower extremities. RESPIRATORY: Breath sounds equal bilaterally. No accessory muscle use. GASTROINTESTINAL: Abdomen soft, non-tender, nondistended. MUSCULOSKELETAL: No cyanosis. 2+ bilateral lower extremity edema. No erythema. No broken skin. posterior lateral right ankle with Band-Aid. Small laceration, some redness, tenderness of right lateral heel. Sleeping, very easily arousable, not cooperative, no asterixis. A/P Problem List: (1) Anasarca ICD Code: R60.1 Status: Acute (2) Ascites ICD Code: R18.8 Status: Acute (3) CHF (congestive heart failure) ICD Code: I50.9 Status: Chronic Assessment and Plan This is a 45-year-old female with a past medical history significant for CHF ( last EF 1520% in March 2016) status post AICD placement, COPD, hepatitis C, cirrhosis, CKD stage III, bilateral PEs diagnosed in March 2016 for which she is currently on Coumadin and hypothyroidism presents to the emergency department with progressive worsening BLE edema, increased abdominal distension , abdominal pain, SOB and vomiting Hyponatremia -could be secondary to hypervolemic hyponatremia from cirrhosis. Avoid hypertonic solution as patient having signs of fluid overload with CHF and cirrhosis. She also has anasarca, low-sodium diet, fluid restriction, will restart Lasix, if no improvement, consult nephrology Hepatitis C with cirrhosis, anasarca -abdominal US c/w ascites but too small to drain -Continue Spirolactone, lasix and lactulose. Adjust as necessary. Check ammonia, patient is very sleepy today. Pulmonary embolism. 03/2016 -Coumadin on hold, INR supratherapeutic, check INR tomorrow. Chronic systolic CHF -Suspect CHF exacerbation. Patient does not adhere to any kind of regimen. Discussed daily weights and fluid restriction. Echocardiogram with EF 15 to 20.. BNP elevated, however less so than in the past. Will continue careful diuresis. [employer] Skin[employer] Machine Feeder saw and cleared the patient, nothing else to add. DM- insulin dependent - Continue accuchecks ACHS with SSI coverage COPD -duonebs as needed hypothyroidism -continue Synthroid recent MRSA Bacteremia -2D echocardiogram with EF 15-20% no vegetations. - completed IV abx 07/15/16, remove Walker catheter. DVT prophylaxis: On Coumadin. Discharge Planning Discharge once hyponatremia resolves Althea Braden MD Jul 26, 2016 13:56
[2016-07-26] MEDS ORDERED: FUROSEMIDE 40 MG TAB PO SCH (14:00)
[2016-07-26] MEDS: ZOLPIDEM TARTRATE 5 MG TAB PO PRN (23:22)
[2016-07-27] VITALS: BP 91/54; PULSE 81; RESP 16; TEMP 97.5; O2SAT 92
[2016-07-27 04:00] VITALS: BP 88/51; PULSE 79; RESP 14; TEMP 97.8; O2SAT 93
[2016-07-27] MEDS: LEVOTHYROXINE SODIUM 50 MCG TAB PO SCH (05:47)
[2016-07-27 06:14] LABS: INTERNATIONAL NORMALIZED RATIO 4.6 RATIO; PROTHROMBIN TIME - PATIENT 54.2 SEC (9.8-11.6)
[2016-07-27 06:40] LABS: POTASSIUM 4.5 MEQ/L (3.5-5.1)
[2016-07-27] MEDS ORDERED: ASPI81CH CHEW (10:03)
--- NOTE | 2016-08-12 09:47 | HHI.DS ---
Discharge Summary Admission Date July 21, 2016 at 00:47 Discharge Date: Jul 27, 2016 Admitting Diagnosis anasarca,liver failure (1) Anasarca ICD Code: R60.1 Diagnosis: Principal (2) Ascites ICD Code: R18.8 Diagnosis: Secondary (3) CHF (congestive heart failure) ICD Code: I50.9 Diagnosis: Principal Procedures None Brief History - From Admission Written by Itzel Traylor, acting as scribe for Dr. Molina on 07/21/16 at 01: 55. This is a 45-year-old female with a past medical history significant for CHF ( last EF 1520% in March 2016) status post AICD placement, COPD, hepatitis C, cirrhosis, CKD stage III, bilateral PEs diagnosed in March 2016 for which she is currently on Coumadin and hypothyroidism presents to the emergency department with progressive worsening BLE edema, increased abdominal distension and SOB. SOB worse with exertion. Associated with vomiting that stated today. "Everything I try to eat keeps coming up." Patient denies black coffee ground emesis or bright red blood. Patient also complaints of abdominal pain located in the epigastric area. Describes pain as a continual sharp pressure. Abdominal pain improves with certain positions. Worsens with laying flat. Patient denies constipation or diarrhea. Patient reports decrease urine output. Denies paracentesis in the past. Patient has gain 6-8 pounds over the past week. Of note patient has right sided tunneled Walker catheter which was placed by IR 06/25/16 last flushed Wednesday07/15/16 Imaging Last Impressions Foot X-Ray 07/23/16 0000 Signed Impressions: Service Date/Time: July 11:59 - CONCLUSION: No radiopaque foreign body identified. Tony Clarke MD Chest X-Ray 07/23/16 0000 Signed Impressions: Service Date/Time: July 07:44 - CONCLUSION: No acute cardiopulmonary abnormality is identified. There is stable mild enlargement of the cardiac silhouette. Bernabe Fritz MD Abdomen Ultrasound 07/21/16 0000 Signed Impressions: Service Date/Time: Thursday, July 21, 2016 08:07 - CONCLUSION: 1. Small amount of ascites adjacent to the liver. 2. Status post cholecystectomy. Leonardo Dunbar MD PE at Discharge GENERAL: Not in distress EYES: No scleral icterus. No injection or drainage. NECK: Supple, trachea midline. No JVD CARDIOVASCULAR: Regular rate and rhythm without murmurs, gallops, or rubs. 2 + pitting edema over the lower extremities. RESPIRATORY: Breath sounds equal bilaterally. No accessory muscle use. GASTROINTESTINAL: Abdomen soft, non-tender, nondistended. MUSCULOSKELETAL: No cyanosis. 2+ bilateral lower extremity edema. No erythema. No broken skin. posterior lateral right ankle with Band-Aid. Small laceration, some redness, tenderness of right lateral heel. Sleeping, very easily arousable, not cooperative, no asterixis. Hospital Course This is a 45-year-old female with a past medical history significant for CHF ( last EF 1520% in March 2016) status post AICD placement, COPD, hepatitis C, cirrhosis, CKD stage III, bilateral PEs diagnosed in March 2016 for which she is currently on Coumadin and hypothyroidism presents to the emergency department with progressive worsening BLE edema, increased abdominal distension , abdominal pain, SOB and vomiting. It was thought that the patient's hyponatremia secondary to hypervolemic hyponatremia from cirrhosis. This was treated accordingly with low-sodium diet, fluid restriction and diuretics. Nephrology was consulted but not seen since patient eloped and left the premises without permission. Patient was also found to have anasarca secondary to cirrhosis from hepatitis C. However after an ultrasound was done, there is not enough ascites to drain. She was continued on diuretics. She had PE April 20 for which Coumadin was continued and INR monitored. Patient also is chronic systolic heart failure with mild acute exacerbation, ejection fraction is between 15-20%. Diuretics were continued. Patient was under treatment for hyponatremia and CHF exacerbation when patient left without notice. Patient was transferred to the next physician (Dr. Josue) on the day of patient's elopement. Patient has a Walker catheter in place hence when Dr. Josue was informed, instruction was given to RN that the patient needs to go back to the hospital. Pt Condition on Discharge: Guarded Discharge Disposition: Discharge Home (Patient left without being seen and eloped) Discharge Time: <= 30 minutes Althea Braden MD Aug 12, 2016 09:47
== END 2016-07-27 08:00 | disposition left against medical advice (07) | DRG 291 ==
LOC: NEPE 22:30 → NEDA 07-21 00:47 → N04B 07-21 02:37
PROVIDERS: ADMIT Hospitalist; ATTEND Hospitalist
DX: I13.0 Hypertensive heart and chronic kidney disease with heart failure and stage 1 through stage 4 chronic kidney disease, or unspecified chronic kidney disease (principal); I50.23 Acute on chronic systolic (congestive) heart failure; R18.8 Other ascites; E11.22 Type 2 diabetes mellitus with diabetic chronic kidney disease; N18.3 Chronic kidney disease, stage 3 (moderate); E87.1 Hypo-osmolality and hyponatremia; I42.9 Cardiomyopathy, unspecified; K74.60 Unspecified cirrhosis of liver; E83.42 Hypomagnesemia; J44.9 Chronic obstructive pulmonary disease, unspecified; F17.210 Nicotine dependence, cigarettes, uncomplicated; D64.9 Anemia, unspecified; I25.2 Old myocardial infarction; Z79.4 Long term (current) use of insulin; I25.10 Atherosclerotic heart disease of native coronary artery without angina pectoris; Z95.810 Presence of automatic (implantable) cardiac defibrillator; Z95.5 Presence of coronary angioplasty implant and graft; Z86.711 Personal history of pulmonary embolism; E03.9 Hypothyroidism, unspecified; B18.2 Chronic viral hepatitis C; E83.51 Hypocalcemia; S91.311A Laceration without foreign body, right foot, initial encounter; W25.XXXA Contact with sharp glass, initial encounter; Y93.01 Activity, walking, marching and hiking; Y99.8 Other external cause status; E78.5 Hyperlipidemia, unspecified; Z79.01 Long term (current) use of anticoagulants; Z86.14 Personal history of Methicillin resistant Staphylococcus aureus infection; F32.9 Major depressive disorder, single episode, unspecified; F41.9 Anxiety disorder, unspecified
CPT/HCPCS: 71010; 73620; 76700; 80048; 80053; 80069; 80076; 81001; 82140; 82306; 82550; 82652; 82948; 83690; 83735; 83880; 84155; 84484; 85025; 85610; 93005; 93306; 94150; 94640; 94664; 94667; 94668; 96374; 96375; J0610; J1642; J1650; J1815; J1940; J2270; J2405; J3475

== ENCOUNTER 2016-07-27 09:32 | Inpatient (IN) | payer OTHER ==
[2016-07-27 09:37] VITALS: BP 105/63; PULSE 95; RESP 24; TEMP 97.5; O2SAT 93
[2016-07-27] MEDS ORDERED: ASPI81CH CHEW (10:03)
--- NOTE | 2016-07-27 10:30 | PD ---
HPI Chief Complaint: Medical Clearance Time Seen by Provider: 10:03 Travel History International Travel<30 days: No Contact w/Intl Traveler<30days: No Traveled to known affect area: No History of Present Illness HPI This is a 45-year-old female who has a history of cirrhosis and congestive heart failure who presents to the emergency department having left the hospital 2 hours ago. She says she walked downstairs to meet her friends who were bringing her coloring books and breakfast. She says she doesn't understand why she was unable to leave her floor. According to nurse's documentation she left AGAINST MEDICAL ADVICE. Patient continues to be short of breath. She says her legs are swollen. She is admitted to the hospital for volume overload, and had a Walker put in for MRSA bacteremia which has since subsided. PFSH Past Medical History Hx Anticoagulant Therapy: Yes (Warfarin) Anemia: No Arthritis: No Asthma: No Autoimmune Disease: No Bipolar Disorder: No Anxiety: Yes Depression: Yes Heart Rhythm Problems: Yes Cancer: No Cardiac Catheterization: Yes (age 33, defibrillator) Cardiovascular Problems: Yes High Cholesterol: Yes Chemotherapy: No Chest Pain: Yes Congestive Heart Failure: Yes Cirrhosis: Yes (jaundice yesterday noted) COPD: Yes Cerebrovascular Accident: No Coronary Artery Disease: Yes Diabetes: Yes (insulin dependant - uses pen) Patient Takes Glucophage: Yes Diminished Hearing: No Deep Vein Thrombosis: Yes Endocrine: Yes Gastrointestinal Disorders: Yes GERD: No Genitourinary: Yes Headaches: No Hepatitis: No Hiatal Hernia: No Hypertension: Yes Immune Disorder: No Implanted Vascular Access Dvce: Yes Kidney Stones: No Musculoskeletal: Yes Neurologic: No Psychiatric: Yes Reproductive: No Respiratory: Yes Migraines: No Myocardial Infarction: Yes (2003) Pancreatitis: No Radiation Therapy: No Renal Failure: Yes Schizophrenia: No Seizures: No Sickle Cell Disease: No Sleep Apnea: No Thyroid Disease: Yes Ulcer: No Tetanus Vaccination: > 5 Years PNEUMOCCOCAL Vaccine (Year): 3 ?: Not Menopausal: Yes : 5 Para: 3 : 2 Tubal Ligation: Yes Past Surgical History Abdominal Surgery: Yes (cholecystectomy) AICD: Yes (defibrillator,medtronic,patient states unknown when was checked last.) Appendectomy: No Arteriovenous Shunt: No Body Medical Devices: defibrillator Cardiac Surgery: Yes (aicd, cardiac stent) Section: Yes (3) Cholecystectomy: Yes Coronary Artery Bypass Graft: No Coronary Stent: Yes Ear Surgery: No Endocrine Surgery: No Eye Surgery: No Genitourinary Surgery: Yes Gynecologic Surgery: Yes ( section) Insulin Pump: No Joint Replacement: No Neurologic Surgery: No Oral Surgery: No Pacemaker: No Thoracic Surgery: No Tonsillectomy: No Other Surgery: Yes (abdominal,aicd,appendectomy,cardiac surg,, cholecystectomy,stent,) Social History Alcohol Use: No Tobacco Use: Yes (3 per day) Substance Use: No (not any more. ) Allergies-Medications (Allergen,Severity, Reaction): Coded Allergies: *MDRO Multi-Drug Resistant Organism (Verified Adverse Reaction, Unknown, ) MRSA (blood) - 06/13/16, 06/15/16 Reported Meds & Prescriptions Reported Meds & Active Scripts Active Zofran (Ondansetron HCl) 4 Mg Tab 4 Mg PO Q6HR PRN Tramadol (Tramadol HCl) 50 Mg Tab 50 Mg PO Q6H PRN Spironolactone 25 Mg Tab 25 Mg PO DAILY Carvedilol 3.125 Mg Tab 3.125 Mg PO Q12HR Furosemide 20 Mg Tab 20 Mg PO DAILY Levothyroxine (Levothyroxine Sodium) 50 Mcg Tab 50 Mcg PO DAILY Warfarin 4 Mg Tab 4 Mg PO DAILY take one tablet daily this medicine needs daily pt and inr initially and follow with Primary Care physician INR goal 2 to 3 and hold for INR in 3 or over. Lisinopril 5 Mg Tab 2.5 Mg PO DAILY Lovenox Inj (Enoxaparin Sodium) 120 Mg/0.8 Ml Syr 120 Mg SQ DAILY use one amp on daily bases Hold Lovenox once INR in 2 or over. continue daily Warfarin. Omeprazole 40 Mg Cap 40 Mg PO DAILY Lactulose Liq (Lactulose) 10 Gm/15 Ml Soln 30 Ml PO DAILY 30 Days Reported Aspirin 81 Mg Chew 81 Mg CHEW DAILY Lantus Inj (Insulin Glargine) 1,000 Unit/10 Ml Vial 1 Units SQ HS Nitrostat SL (Nitroglycerin) 0.4 Mg Subl 0.4 Mg SL DIRECTED PRN 1 tablet under the tongue as needed for chest pain. Repeat every 5 minutes for a total of 3 DOSES or call 911 if NO relief. Review of Systems General / Constitutional: No: Fever, Chills Respiratory: Positive: Shortness of Breath Physical Exam Narrative GENERAL: Well-nourished, well-developed patient. SKIN: Warm and dry. HEAD: Normocephalic. EYES: No scleral icterus. No injection or drainage. NECK: Supple, trachea midline. CARDIOVASCULAR: Regular rate and rhythm without murmurs. 2+ lower extremity bilateral pitting edema RESPIRATORY: Coarse breath sounds bilaterally, no accessory muscle use GASTROINTESTINAL: Abdomen soft, distended, hepatomegaly present Data Data Last Documented VS Vital Signs Date Time Temp Pulse Resp B/P Pulse Ox O2 Delivery O2 Flow Rate FiO2 07/27/16 09:59 Nasal Cannula 2 07/27/16 09:37 97.5 95 24 105/63 93 Orders Admit Order (Ed Use Only) (07/27/16 10:23) MDM Medical Decision Making Medical Screen Exam Complete: Yes Emergency Medical Condition: Yes Interpretation(s) Afebrile, mild tachycardia, 90% on room air on my exam Differential Diagnosis Congestive heart failure, cirrhosis, pneumonia Narrative Course This is a 45-year-old female who was admitted to the hospital for volume overload in the setting of congestive heart failure and cirrhosis. Patient left the floor this morning for unclear reasons. She threw presents to the emergency department because she is not feeling well. Patient will be readmitted. Physician Communication Physician Communication Discussed with Zee Pereira MD Jul 27, 2016 10:30
[2016-07-27 12:50] VITALS: BP 96/60; PULSE 81; RESP 18; O2SAT 97
[2016-07-27] MEDS ORDERED: SENNOSIDES 8.6 MG TAB PO PRN (14:00)
[2016-07-27] MEDS ORDERED: BISACODYL 10 MG SUPP RECTAL PRN (14:00)
[2016-07-27] MEDS ORDERED: ONDANSETRON HCL 4 MG/2 ML VIAL IVP PRN (14:00)
[2016-07-27] MEDS ORDERED: ACETAMINOPHEN 325 MG TAB PO PRN (14:00)
[2016-07-27] MEDS ORDERED: MAGNESIUM HYDROXIDE SUSP 30 ML CUP PO PRN (14:00)
[2016-07-27] MEDS ORDERED: LACTULOSE SYRUP 20 GM/30 ML CUP PO PRN (14:00)
[2016-07-27] MEDS ORDERED: SODIUM CHLORIDE 0.9% FLUSH 10 ML FLUSH IV FLUSH PRN (14:00)
[2016-07-27] MEDS ORDERED: GLUCAGON 1 MG/ML VIAL OTHER PRN (14:00)
[2016-07-27 15:27] VITALS: BP 106/68
[2016-07-27 16:46] VITALS: BP 97/66; PULSE 98; RESP 17; TEMP 97; O2SAT 99
[2016-07-27] MEDS ORDERED: ONDANSETRON ODT 4 MG TAB PO PRN (18:00)
--- NOTE | 2016-07-27 18:05 | HHI.HP ---
HPI Service [facility] Primary Care Physician No Primary Care Physician Admission Diagnosis volume overload Diagnoses: Chief Complaint: CHANG, BL edema Travel History International Travel<30 Days: No Contact w/Intl Traveler <30 Da: No Traveled to Known Affected Are: No History of Present Illness This is a 45-year-old female with a past medical history significant for CHF with an EF of 15-20% in last echocardiogram obtained on March 25, status post AICD placement, COPD, hepatitis C, cirrhosis, CK V stage III, bilateral PEs diagnosed in March 2016 for which the patient was on Coumadin which was held secondary to the INR being supratherapeutic. The patient presented on complaining of increased abdominal distention and shortness of breath associated with these on exertion. Patient also was complaining at the time of vomiting and as per medical records the patient denied any coffee-ground emesis or bright red blood per rectum. Patient was complaining of some epigastric abdominal pain at the time. The patient was then admitted to the medical floor and started on a treatment for anasarca and acute on chronic systolic heart failure. The patient however decided to sign out AGAINST MEDICAL ADVICE on 07/26 alleging that she wanted to belt picker her coloring materials from [employer]. The patient came back and is still complaining of shortness of breath and is on exertion as well as edema in bilateral extremities. The patient denies fevers, chills, cough, nausea, vomiting or diarrhea. Review of Systems Except as stated in HPI: all other systems reviewed are Neg As per HPI, other systems reviewed by me and negative Past Family Social History Past Medical History Hepatitis C Chronic kidney disease stage III Liver cirrhosis Hypertension Hyperlipidemia Coronary artery disease status post cardiac stent Chronic systolic heart failure AICD placement COPD Insulin-dependent diabetes mellitus Hypothyroidism Past Surgical History 3 Tubal ligation Cholecystectomy Cardiac stent placement AICD placement Reported Medications Reported Meds & Active Scripts Active Zofran (Ondansetron HCl) 4 Mg Tab 4 Mg PO Q6HR PRN Tramadol (Tramadol HCl) 50 Mg Tab 50 Mg PO Q6H PRN Spironolactone 25 Mg Tab 25 Mg PO DAILY Carvedilol 3.125 Mg Tab 3.125 Mg PO Q12HR Furosemide 20 Mg Tab 20 Mg PO DAILY Levothyroxine (Levothyroxine Sodium) 50 Mcg Tab 50 Mcg PO DAILY Warfarin 4 Mg Tab 4 Mg PO DAILY take one tablet daily this medicine needs daily pt and inr initially and follow with Primary Care physician INR goal 2 to 3 and hold for INR in 3 or over. Lisinopril 5 Mg Tab 2.5 Mg PO DAILY Lovenox Inj (Enoxaparin Sodium) 120 Mg/0.8 Ml Syr 120 Mg SQ DAILY use one amp on daily bases Hold Lovenox once INR in 2 or over. continue daily Warfarin. Omeprazole 40 Mg Cap 40 Mg PO DAILY Lactulose Liq (Lactulose) 10 Gm/15 Ml Soln 30 Ml PO DAILY 30 Days Reported Aspirin 81 Mg Chew 81 Mg CHEW DAILY Lantus Inj (Insulin Glargine) 1,000 Unit/10 Ml Vial 1 Units SQ HS Nitrostat SL (Nitroglycerin) 0.4 Mg Subl 0.4 Mg SL DIRECTED PRN 1 tablet under the tongue as needed for chest pain. Repeat every 5 minutes for a total of 3 DOSES or call 911 if NO relief. Allergies: Coded Allergies: *MDRO Multi-Drug Resistant Organism (Verified Adverse Reaction, Unknown, ) MRSA (blood) - 06/13/16, 06/15/16 Active Ordered Medications Current Medications Medications (Trade) Dose Ordered Sig/Digna Route Start Time Stop Time Status Last Admin (NS Flush) 2 ml UNSCH PRN IV FLUSH 07/27/16 14:00 (NS Flush) 2 ml BID IV FLUSH 07/27/16 21:00 07/28/16 09:48 (Tylenol) 650 mg Q4H PRN PO 07/27/16 14:00 (Zofran Inj) 4 mg Q6H PRN IVP 07/27/16 14:00 (Mitzy-Colace) 1 tab BID PO 07/27/16 21:00 07/28/16 09:47 (Milk Of Magnesia Liq) 30 ml Q12H PRN PO 07/27/16 14:00 (Senokot) 17.2 mg Q12H PRN PO 07/27/16 14:00 (Dulcolax Supp) 10 mg DAILY PRN RECTAL 07/27/16 14:00 (Lactulose Liq) 30 ml DAILY PRN PO 07/27/16 14:00 (D50w (Vial) Inj) 50 ml UNSCH PRN IV 07/27/16 14:00 (Glucagon Inj) 1 mg UNSCH PRN OTHER 07/27/16 14:00 (Aspirin Chew) 81 mg DAILY CHEW 07/28/16 09:00 07/28/16 09:47 (Coreg) 3.125 mg Q12HR PO 07/27/16 21:00 07/28/16 09:47 (Lactulose Liq) 30 ml DAILY PO 07/28/16 09:00 07/28/16 09:47 (Synthroid) 50 mcg DAILY@0600 PO 07/28/16 06:00 07/28/16 05:32 (Aldactone) 25 mg DAILY PO 07/28/16 09:00 07/28/16 09:47 (Ultram) 50 mg Q6H PRN PO 07/27/16 18:00 07/28/16 09:47 (Protonix) 40 mg DAILY PO 07/28/16 09:00 07/28/16 09:47 (Zofran Odt) 4 mg Q6H PRN PO 07/27/16 18:00 (Lasix Inj) 20 mg BID@09,18 IV PUSH 07/28/16 09:00 07/28/16 17:18 (Proamatine) 5 mg TID@,12,17 PO 07/28/16 17:00 07/28/16 17:18 (Neurontin) 300 mg TID PO 07/29/16 09:00 (Protonix) 40 mg DAILY PO 07/28/16 19:30 (Mag-Al Plus Susp Liq) 30 ml Q6H PRN PO 07/28/16 19:30 Family History Patient states her mother had leukemia, father CAD. Paternal grandmother secondary to [place] at 34 years old. Social History Patient states that she smoked for the past 30 years, currently denies smoking. Denies drinking alcohol ever. Denies any drug use. Physical Exam Vital Signs Vital Signs Date Time Temp Pulse Resp B/P Pulse Ox O2 Delivery O2 Flow Rate FiO2 07/27/16 16:46 97.0 98 17 97/66 99 07/27/16 15:27 87 16 106/68 98 07/27/16 12:50 81 18 96/60 97 07/27/16 09:59 Nasal Cannula 2 07/27/16 09:37 97.5 95 24 105/63 93 Physical Exam GENERAL: This is a well-nourished, well-developed patient, in no apparent distress. SKIN: No rashes, ecchymoses or lesions. Cool and dry. HEAD: Atraumatic. Normocephalic. No temporal or scalp tenderness. EYES: Pupils equal round and reactive. Extraocular motions intact. No scleral icterus. No injection or drainage. ENT: Nose without bleeding, purulent drainage or septal hematoma. Throat without erythema, tonsillar hypertrophy or exudate. Uvula midline. Airway patent. NECK: Trachea midline. No JVD or lymphadenopathy. Supple, nontender, no meningeal signs. CARDIOVASCULAR: Regular rate and rhythm without murmurs, gallops, or rubs. RESPIRATORY: Clear to auscultation. Breath sounds equal bilaterally. No wheezes , rales, or rhonchi. GASTROINTESTINAL: Abdomen soft, non-tender, nondistended. No hepato-splenomegaly , or palpable masses. No guarding. MUSCULOSKELETAL: Extremities without clubbing, cyanosis, (+) 3 edema. No joint tenderness, effusion, or edema noted. No calf tenderness. Negative Homans sign bilaterally. NEUROLOGICAL: Awake and alert. Cranial nerves II through XII intact. Motor and sensory grossly within normal limits. Five out of 5 muscle strength in all muscle groups. Normal speech. Assessment and Plan Problem List: (1) CHF (congestive heart failure) ICD Code: I50.9 Status: Chronic Plan: Place on IV lasix, continue spironolactone (2) CAD (coronary artery disease) ICD Code: I25.10 Status: Chronic Plan: Continue Aspirin. (3) Type 2 diabetes mellitus with hyperglycemia, with long-term current use of insulin ICD Code: E11.65 Status: Acute Plan: SSI with insulin Novolog, monitor accuchecks (4) Acute kidney injury ICD Code: N17.9 Status: Acute Plan: Creatinine trending down, continue to monitor BUN and Creatinine. (5) Hyperammonemia ICD Code: E72.20 Status: Acute Plan: Continue Lactulose. Monitor ammonia. (6) Hyponatremia ICD Code: E87.1 Status: Acute Plan: Hypervolemic hyponatremia. Place on fluid restriction and diurese with IV Lasix. Monitor BMP (7) Hepatitis C ICD Code: B19.20 Status: Chronic Plan: Monitor liver function tests. (8) Cirrhosis ICD Code: K74.60 Status: Chronic Plan: Liver cirrhosis likely secondary to hepatitis C. Continue to monitor liver function tests. Continue Lasix and spironolactone. Physician Certification 2 Midnight Certification Type: Admission for Inpatient Services Order for Inpatient Services The services are ordered in accordance with Medicare regulations or non- Medicare payer requirements, as applicable. In the case of services not specified as inpatient-only, they are appropriately provided as inpatient services in accordance with the 2-midnight benchmark. Estimated LOS (days): 2 days is the estimated time the patient will need to remain in the hospital, assuming treatment plan goals are met and no additional complications. Post-Hospital Plan: Not yet determined Problem Qualifiers (1) CHF (congestive heart failure): Qualified Code: I50.21 - Acute systolic congestive heart failure (2) CAD (coronary artery disease): Qualified Code: I25.10 - Coronary artery disease involving [place] coronary artery of [place] heart without angina pectoris (3) Hepatitis C: (4) Cirrhosis: Qualified Code: K74.60 - Cirrhosis of liver with ascites, unspecified hepatic cirrhosis type Douglas Bhardwaj MD Jul 27, 2016 18:05
[2016-07-27] MEDS: traMADol HCL 50 MG TAB PO PRN (18:09)
[2016-07-27] MEDS: INSULIN ASPART SUPPLEMENTAL SCALE SQ SCH ×2 (18:10→21:00)
[2016-07-27 21:08] VITALS: BP 96/68; PULSE 92; RESP 20; TEMP 96.5; O2SAT 95
[2016-07-27] MEDS: CARVEDILOL 3.125 MG TAB PO SCH (21:46)
[2016-07-27] MEDS: DOCUSATE SODIUM 50 MG/SENNA 8.6 MG TAB PO SCH (21:46)
[2016-07-27] MEDS: SODIUM CHLORIDE 0.9% FLUSH 10 ML FLUSH IV FLUSH SCH (21:47)
[2016-07-28] VITALS (9 sets, daily range): BP systolic 78–103; BP diastolic 52–74; PULSE 86–119; RESP 16–22; TEMP 95.8–98.2; O2SAT 93–98
[2016-07-28] MEDS: traMADol HCL 50 MG TAB PO PRN ×2 (00:09→09:47)
[2016-07-28] MEDS ORDERED: TEMAZEPAM 7.5 MG CAP PO ONE (00:30)
[2016-07-28] MEDS ORDERED: RESP: ALBUTEROL 2.5 MG/IPRATROPIUM 0.5 MG NEB (PRN) NEB (03:45)
[2016-07-28] MEDS ORDERED: SODIUM CHLORID 0.9% 500 ML INJ 500 ML IV ONE (03:45)
[2016-07-28 04:24] LABS: AUTOMATED NEUTROPHIL # 5.5 TH/MM3 (1.8-7.7); BASOPHIL % 0.6 % (0.0-2.0); EOSINOPHIL # 0.1 TH/MM3 (0-0.4); HEMATOCRIT 29.9 % (35.0-46.0); LYMPH % 15.2 % (9.0-44.0); LYMPHOCYTE # 1.1 TH/MM3 (1.0-4.8); MEAN CELL VOLUME 74.5 FL (80.0-100.0); MEAN CORPUSCULAR HEMOGLOBIN 22.7 PG (27.0-34.0); MEAN CORPUSCULAR HGB CONC 30.5 % (32.0-36.0); MONO % 5.6 % (0.0-8.0); NEUT % 77.6 % (16.0-70.0); PLATELET COUNT 147 TH/MM3 (150-450); RED BLOOD COUNT 4.02 MIL/MM3 (4.00-5.30); RED CELL DISTRIBUTION WIDTH 23.7 % (11.6-17.2); WHITE BLOOD COUNT 7.1 TH/MM3 (4.0-11.0)
[2016-07-28 04:26] LABS: HEMO FLAGS AUTO DIFF
[2016-07-28 04:58] LABS: ANION GAP 9 MEQ/L (5-15); AST (GOT) 33 U/L (15-37); BICARBONATE 26.5 MEQ/L (21.0-32.0); BLOOD UREA NITROGEN 18 MG/DL (7-18); CHLORIDE 90 MEQ/L (98-107); GLOMERULAR FILTRATION RATE 44 ML/MIN (>89); MAGNESIUM 1.6 MG/DL (1.5-2.5); POTASSIUM 4.3 MEQ/L (3.5-5.1); SODIUM (NA) 125 MEQ/L (136-145)
[2016-07-28 04:59] LABS: ALT (GPT) 22 U/L (10-53)
[2016-07-28 05:01] LABS: ALKALINE PHOSPHATASE 92 U/L (45-117)
--- NOTE | 2016-07-28 05:07 | RADRPT ---
EXAM DATE/TIME: 07/28/2016 04:21 [facility] COMPARISON: CHEST SINGLE AP, July 23, 2016, 7:44. INDICATIONS : Short of breath. MEDICAL HISTORY : Hypertension. Myocardial infarction. Chronic obstructive pulmonary disease. CHF. SURGICAL HISTORY : Pacemaker. Coronary artery stent. ENCOUNTER: Subsequent ACUITY: 1 week PAIN SCORE: 6/10 LOCATION: Bilateral chest FINDINGS: A single view of the chest demonstrates the lungs to be symmetrically aerated without evidence of mas s, infiltrate or effusion. The left subclavian single lead pacer and right-sided venous catheter over lying the internal jugular vein are unchanged The cardiomediastinal contours are unremarkable. [place] us structures are intact. CONCLUSION: Lungs are clear except for stable pacer and central line. Andrea Hernandez MD on July 28, 2016 at 5:05 Board Certified Radiologist. This report was verified electronically.
[2016-07-28] MEDS: LEVOTHYROXINE SODIUM 50 MCG TAB PO SCH (05:32)
[2016-07-28 05:41] LABS: BANDS 2 % (0-6); METAMYELOCYTES 1 % (0-1); POLYS (SEG NEUTROPHILS) 81 % (16-70); SCAN/DIFF FINAL DIFF MANUAL; WBC DIFF SAMPLE 100
[2016-07-28 05:43] LABS: ACANTHOCYTES OCC (NORMAL); PLATELET ESTIMATE SMEAR NORMAL (NORMAL); PLATELET MORPHOLOGY NORMAL (NORMAL)
[2016-07-28] MEDS: INSULIN ASPART SUPPLEMENTAL SCALE SQ SCH ×4 (06:29→21:00)
[2016-07-28] MEDS ORDERED: FUROSEMIDE 20 MG TAB PO SCH (09:00)
[2016-07-28] MEDS: ASPIRIN 81 MG CHEW TAB CHEW SCH (09:47)
[2016-07-28] MEDS: PANTOPRAZOLE SOD 40 MG DELAYED RELEASE TAB PO SCH ×2 (09:47→22:00)
[2016-07-28] MEDS: LACTULOSE SYRUP 20 GM/30 ML CUP PO SCH (09:47)
[2016-07-28] MEDS: CARVEDILOL 3.125 MG TAB PO SCH ×2 (09:47→22:00)
[2016-07-28] MEDS: DOCUSATE SODIUM 50 MG/SENNA 8.6 MG TAB PO SCH ×2 (09:47→22:00)
[2016-07-28] MEDS: SPIRONOLACTONE 25 MG TAB PO SCH (09:47)
[2016-07-28] MEDS: FUROSEMIDE 20 MG/2 ML VIAL IV PUSH SCH ×2 (09:48→17:18)
[2016-07-28] MEDS: SODIUM CHLORIDE 0.9% FLUSH 10 ML FLUSH IV FLUSH SCH ×2 (09:48→22:01)
[2016-07-28] MEDS: MIDODRINE 5 MG TAB PO SCH (17:18)
--- NOTE | 2016-07-28 18:53 | HHI.PR ---
Subjective Remarks Patient wants to go home denies cp/sob sodium trending up slowly Creatinine trending down As per RN the patient's blood pressure dropped after tramadol. Patient c/o pain on hands and feet. Objective Vitals Vital Signs Date Time Temp Pulse Resp B/P Pulse Ox O2 Delivery O2 Flow Rate FiO2 07/28/16 16:21 98.2 90 20 99/74 98 07/28/16 12:29 07/28/16 11:55 92/58 07/28/16 11:40 96.8 119 16 89/65 98 07/28/16 07:59 96.8 87 16 94/70 98 07/28/16 05:33 90 16 103/68 95 07/28/16 04:56 98 21 07/28/16 04:24 97.3 88 20 78/52 93 07/28/16 00:21 95.8 86 22 100/62 93 07/27/16 21:08 96.5 92 20 96/68 95 I/O 07/27/16 07/27/16 07/27/16 07/28/16 07/28/16 07/28/16 07:00 15:00 23:00 07:00 15:00 23:00 Intake Total 240 ml 600 ml 240 ml Balance 240 ml 600 ml 240 ml Intake Oral 240 ml 600 ml 240 ml IV Total 0 ml # Voids 1 2 4 # Bowel Movements 1 Result Diagram: 07/28/16 0405 07/28/16 0405 Imaging Last Impressions Chest X-Ray 07/28/16 0000 Signed Impressions: Service Date/Time: Thursday, July 28, 2016 04:21 - CONCLUSION: Lungs are clear except for stable pacer and central line. Andrea Hernandez MD Objective Remarks GENERAL: This is a well-nourished, well-developed patient, in no apparent distress. SKIN: No rashes, ecchymoses or lesions. Cool and dry. HEAD: Atraumatic. Normocephalic. No temporal or scalp tenderness. EYES: Pupils equal round and reactive. Extraocular motions intact. No scleral icterus. No injection or drainage. ENT: Nose without bleeding, purulent drainage or septal hematoma. Throat without erythema, tonsillar hypertrophy or exudate. Uvula midline. Airway patent. NECK: Trachea midline. No JVD or lymphadenopathy. Supple, nontender, no meningeal signs. CARDIOVASCULAR: Regular rate and rhythm without murmurs, gallops, or rubs. RESPIRATORY: Clear to auscultation. Breath sounds equal bilaterally. No wheezes , rales, or rhonchi. GASTROINTESTINAL: Abdomen soft, non-tender, nondistended. No hepato-splenomegaly , or palpable masses. No guarding. MUSCULOSKELETAL: Extremities without clubbing, cyanosis, (+) 3 edema. No joint tenderness, effusion, or edema noted. No calf tenderness. Negative Homans sign bilaterally. NEUROLOGICAL: Awake and alert. Cranial nerves II through XII intact. Motor and sensory grossly within normal limits. Five out of 5 muscle strength in all muscle groups. Normal speech. Medications and IVs Current Medications Medications (Trade) Dose Ordered Sig/Digna Route Start Time Stop Time Status Last Admin (NS Flush) 2 ml UNSCH PRN IV FLUSH 07/27/16 14:00 (NS Flush) 2 ml BID IV FLUSH 07/27/16 21:00 07/28/16 09:48 (Tylenol) 650 mg Q4H PRN PO 07/27/16 14:00 (Zofran Inj) 4 mg Q6H PRN IVP 07/27/16 14:00 (Mitzy-Colace) 1 tab BID PO 07/27/16 21:00 07/28/16 09:47 (Milk Of Magnesia Liq) 30 ml Q12H PRN PO 07/27/16 14:00 (Senokot) 17.2 mg Q12H PRN PO 07/27/16 14:00 (Dulcolax Supp) 10 mg DAILY PRN RECTAL 07/27/16 14:00 (Lactulose Liq) 30 ml DAILY PRN PO 07/27/16 14:00 (D50w (Vial) Inj) 50 ml UNSCH PRN IV 07/27/16 14:00 (Glucagon Inj) 1 mg UNSCH PRN OTHER 07/27/16 14:00 (Aspirin Chew) 81 mg DAILY CHEW 07/28/16 09:00 07/28/16 09:47 (Coreg) 3.125 mg Q12HR PO 07/27/16 21:00 07/28/16 09:47 (Lactulose Liq) 30 ml DAILY PO 07/28/16 09:00 07/28/16 09:47 (Synthroid) 50 mcg DAILY@0600 PO 07/28/16 06:00 07/28/16 05:32 (Aldactone) 25 mg DAILY PO 07/28/16 09:00 07/28/16 09:47 (Ultram) 50 mg Q6H PRN PO 07/27/16 18:00 07/28/16 09:47 (Protonix) 40 mg DAILY PO 07/28/16 09:00 07/28/16 09:47 (Zofran Odt) 4 mg Q6H PRN PO 07/27/16 18:00 (Lasix Inj) 20 mg BID@,18 IV PUSH 07/28/16 09:00 07/28/16 17:18 (Proamatine) 5 mg TID@,, PO 07/28/16 17:00 07/28/16 17:18 Urinary Catheter: No Vascular Central Line Catheter: No A/P Problem List: (1) CHF (congestive heart failure) ICD Code: I50.9 Status: Chronic Plan: Continue IV Lasix and spironolactone. Echocardiogram performed on 07/21/16 showed a cavity size which was probably to moderately dilated with severely reduced systolic function with an EF in 3-15-20 %. Diffuse hypokinesis. Moderate mitral valve regurgitation, moderate tricuspid regurgitation. I will increase dose of Lasix to 40 mg IV twice a day. (2) CAD (coronary artery disease) ICD Code: I25.10 Status: Chronic Plan: Continue Aspirin. Theology has been consulted on previous admission. (3) Type 2 diabetes mellitus with hyperglycemia, with long-term current use of insulin ICD Code: E11.65 Status: Acute Plan: SSI with insulin Novolog, monitor accuchecks. Last hemoglobin A1c was 7.4 on 05/14 (4) Acute kidney injury ICD Code: N17.9 Status: Acute Plan: Creatinine trending down, continue to monitor BUN and Creatinine. (5) Hyperammonemia ICD Code: E72.20 Status: Acute Plan: Continue Lactulose. Monitor ammonia - trending down and now with a normal level of 32. (6) Hyponatremia ICD Code: E87.1 Status: Acute Plan: Hypervolemic hyponatremia. Improving and sodium trending up. Continue w fluid restriction and IV lasix (7) Hepatitis C ICD Code: B19.20 Status: Chronic Plan: Patient had a hepatitis C antibody reactive positive in April 2016. (8) Cirrhosis ICD Code: K74.60 Status: Chronic Plan: Continue Lasix and spironolactone. Problem Qualifiers (1) CHF (congestive heart failure): Qualified Code: I50.21 - Acute systolic congestive heart failure (2) CAD (coronary artery disease): Qualified Code: I25.10 - Coronary artery disease involving [place] coronary artery of [place] heart without angina pectoris (3) Cirrhosis: Douglas Bhardwaj MD Jul 28, 2016 18:53
[2016-07-28] MEDS ORDERED: ALUMINUM/MAGNESIUM/SIMETH 30 ML CUP PO PRN (19:30)
[2016-07-29] VITALS (7 sets, daily range): BP systolic 80–191; BP diastolic 55–72; PULSE 84–103; RESP 16–20; TEMP 96.4–98.8; O2SAT 96–100
[2016-07-29] MEDS: MIDODRINE 5 MG TAB PO SCH ×3 (06:09→17:18)
[2016-07-29] MEDS: LEVOTHYROXINE SODIUM 50 MCG TAB PO SCH (06:10)
[2016-07-29 06:59] LABS: TRANSFERRIN IRON PROFILE 253 MG/DL (200-360)
[2016-07-29] MEDS: INSULIN ASPART SUPPLEMENTAL SCALE SQ SCH ×4 (07:00→21:00)
[2016-07-29 07:01] LABS: FERRITIN 73 NG/ML (8-252)
[2016-07-29] MEDS: DOCUSATE SODIUM 50 MG/SENNA 8.6 MG TAB PO SCH ×2 (08:40→21:00)
[2016-07-29] MEDS: PANTOPRAZOLE SOD 40 MG DELAYED RELEASE TAB PO SCH ×2 (08:40)
[2016-07-29] MEDS: SPIRONOLACTONE 25 MG TAB PO SCH (08:40)
[2016-07-29] MEDS: CARVEDILOL 3.125 MG TAB PO SCH ×2 (08:40→22:17)
[2016-07-29] MEDS: GABAPENTIN 300 MG CAP PO SCH ×3 (08:40→17:16)
[2016-07-29] MEDS: LACTULOSE SYRUP 20 GM/30 ML CUP PO SCH (08:41)
[2016-07-29] MEDS: ASPIRIN 81 MG CHEW TAB CHEW SCH (08:43)
[2016-07-29] MEDS: SODIUM CHLORIDE 0.9% FLUSH 10 ML FLUSH IV FLUSH SCH ×2 (09:00→22:18)
[2016-07-29] MEDS: FUROSEMIDE 20 MG/2 ML VIAL IV PUSH SCH (10:38)
[2016-07-29 13:45] LABS: AUTOMATED NEUTROPHIL # 5.2 TH/MM3 (1.8-7.7); BASOPHIL % 0.5 % (0.0-2.0); EOSINOPHIL % 0.4 % (0.0-4.0); HEMATOCRIT 30.5 % (35.0-46.0); HEMO FLAGS DIFF FINAL; LYMPH % 15.7 % (9.0-44.0); MEAN CELL VOLUME 74.5 FL (80.0-100.0); MEAN CORPUSCULAR HGB CONC 30.9 % (32.0-36.0); MONO % 5.3 % (0.0-8.0); NEUT % 78.1 % (16.0-70.0); PLATELET COUNT 167 TH/MM3 (150-450); RED CELL DISTRIBUTION WIDTH 24.5 % (11.6-17.2); WHITE BLOOD COUNT 6.6 TH/MM3 (4.0-11.0)
[2016-07-29 13:59] LABS: ALT (GPT) 20 U/L (10-53); ANION GAP 8 MEQ/L (5-15); AST (GOT) 24 U/L (15-37); BICARBONATE 29.6 MEQ/L (21.0-32.0); BLOOD UREA NITROGEN 16 MG/DL (7-18); CHLORIDE 90 MEQ/L (98-107); GLOMERULAR FILTRATION RATE 42 ML/MIN (>89); MAGNESIUM 1.5 MG/DL (1.5-2.5); POTASSIUM 3.9 MEQ/L (3.5-5.1); SODIUM (NA) 128 MEQ/L (136-145)
[2016-07-29 14:01] LABS: ALKALINE PHOSPHATASE 93 U/L (45-117)
--- NOTE | 2016-07-29 14:15 | HHI.PR ---
Subjective Remarks Patient's BP on the lower side with a systolic blood pressure in the 80s. Patient states that her Lotrimin edema has improved substantially. Sodium is trending up Denies chest pain or shortness of breath Objective Vitals Vital Signs Date Time Temp Pulse Resp B/P Pulse Ox O2 Delivery O2 Flow Rate FiO2 07/29/16 12:07 97.5 93 20 88/65 98 07/29/16 10:20 93/60 07/29/16 08:57 97.5 93 20 86/55 96 07/29/16 06:09 98.0 84 16 94/56 98 07/29/16 00:12 98.0 93 16 95/57 98 07/28/16 20:31 98.2 86 16 103/69 98 07/28/16 16:21 98.2 90 20 99/74 98 I/O 07/28/16 07/28/16 07/28/16 07/29/16 07/29/16 07/29/16 07:00 15:00 23:00 07:00 15:00 23:00 Intake Total 600 ml 360 ml 120 ml Balance 600 ml 360 ml 120 ml Intake Oral 600 ml 360 ml 120 ml IV Total 0 ml # Voids 2 4 2 3 # Bowel Movements 1 Result Diagram: 07/29/16 1230 07/29/16 1230 Imaging Last Impressions Chest X-Ray 07/28/16 0000 Signed Impressions: Service Date/Time: Thursday, July 28, 2016 04:21 - CONCLUSION: Lungs are clear except for stable pacer and central line. Andrea Hernandez MD Objective Remarks GENERAL: This is a well-nourished, well-developed patient, in no apparent distress. SKIN: No rashes, ecchymoses or lesions. Cool and dry. HEAD: Atraumatic. Normocephalic. No temporal or scalp tenderness. EYES: Pupils equal round and reactive. Extraocular motions intact. No scleral icterus. No injection or drainage. ENT: Nose without bleeding, purulent drainage or septal hematoma. Throat without erythema, tonsillar hypertrophy or exudate. Uvula midline. Airway patent. NECK: Trachea midline. No JVD or lymphadenopathy. Supple, nontender, no meningeal signs. CARDIOVASCULAR: Regular rate and rhythm without murmurs, gallops, or rubs. RESPIRATORY: Clear to auscultation. Breath sounds equal bilaterally. No wheezes , rales, or rhonchi. GASTROINTESTINAL: Abdomen soft, non-tender, nondistended. No hepato-splenomegaly , or palpable masses. No guarding. MUSCULOSKELETAL: Extremities without clubbing, cyanosis, (+) 3 edema. No joint tenderness, effusion, or edema noted. No calf tenderness. Negative Homans sign bilaterally. NEUROLOGICAL: Awake and alert. Cranial nerves II through XII intact. Motor and sensory grossly within normal limits. Five out of 5 muscle strength in all muscle groups. Normal speech. Procedures none Medications and IVs Current Medications Medications (Trade) Dose Ordered Sig/Digna Route Start Time Stop Time Status Last Admin (NS Flush) 2 ml UNSCH PRN IV FLUSH 07/27/16 14:00 (NS Flush) 2 ml BID IV FLUSH 07/27/16 21:00 07/29/16 09:00 (Tylenol) 650 mg Q4H PRN PO 07/27/16 14:00 (Zofran Inj) 4 mg Q6H PRN IVP 07/27/16 14:00 (Mitzy-Colace) 1 tab BID PO 07/27/16 21:00 07/29/16 08:40 (Milk Of Magnesia Liq) 30 ml Q12H PRN PO 07/27/16 14:00 (Senokot) 17.2 mg Q12H PRN PO 07/27/16 14:00 (Dulcolax Supp) 10 mg DAILY PRN RECTAL 07/27/16 14:00 (Lactulose Liq) 30 ml DAILY PRN PO 07/27/16 14:00 (D50w (Vial) Inj) 50 ml UNSCH PRN IV 07/27/16 14:00 (Glucagon Inj) 1 mg UNSCH PRN OTHER 07/27/16 14:00 (Aspirin Chew) 81 mg DAILY CHEW 07/28/16 09:00 07/29/16 08:43 (Coreg) 3.125 mg Q12HR PO 07/27/16 21:00 07/29/16 08:40 (Lactulose Liq) 30 ml DAILY PO 07/28/16 09:00 07/29/16 08:41 (Synthroid) 50 mcg DAILY@0600 PO 07/28/16 06:00 07/29/16 06:10 (Aldactone) 25 mg DAILY PO 07/28/16 09:00 07/29/16 08:40 (Ultram) 50 mg Q6H PRN PO 07/27/16 18:00 07/28/16 09:47 (Protonix) 40 mg DAILY PO 07/28/16 09:00 07/29/16 08:40 (Zofran Odt) 4 mg Q6H PRN PO 07/27/16 18:00 (Neurontin) 300 mg TID PO 07/29/16 09:00 07/29/16 17:16 (Protonix) 40 mg DAILY PO 07/28/16 19:30 07/29/16 08:40 (Mag-Al Plus Susp Liq) 30 ml Q6H PRN PO 07/28/16 19:30 (Proamatine) 10 mg TID@07,,17 PO 07/29/16 12:00 07/29/16 17:18 (Lasix Inj) 20 mg DAILY IV PUSH 07/30/16 09:00 Urinary Catheter: No Vascular Central Line Catheter: No A/P Problem List: (1) CHF (congestive heart failure) ICD Code: I50.9 Status: Chronic (2) CAD (coronary artery disease) ICD Code: I25.10 Status: Chronic (3) Type 2 diabetes mellitus with hyperglycemia, with long-term current use of insulin ICD Code: E11.65 Status: Acute (4) Acute kidney injury ICD Code: N17.9 Status: Acute (5) Hyperammonemia ICD Code: E72.20 Status: Acute (6) Hyponatremia ICD Code: E87.1 Status: Acute (7) Hepatitis C ICD Code: B19.20 Status: Chronic (8) Cirrhosis ICD Code: K74.60 Status: Chronic Assessment and Plan (1) CHF (congestive heart failure) Plan: Continue IV Lasix and spironolactone. Echocardiogram performed on 07/21/16 showed a cavity size which was probably to moderately dilated with severely reduced systolic function with an EF in 3-15-20 %. Diffuse hypokinesis. Moderate mitral valve regurgitation, moderate tricuspid regurgitation. 6/7 bilateral lower extremity edema almost resolved. I will discontinue IV Lasix and start on oral Lasix. (2) CAD (coronary artery disease) Plan: Continue Aspirin. Cardiology has been consulted on previous admission. (3) Type 2 diabetes mellitus with hyperglycemia, with long-term current use of insulin Plan: SSI with insulin Novolog, monitor accuchecks. Last hemoglobin A1c was 7.4 on 05/14. Diabetes is uncontrolled. Blood sugar seems to be stable. (4) Acute kidney injury Plan: Creatinine stable at 1.3. Continue to monitor BUN/creatinine. Slides and O's, avoid nephrotoxins. (5) Hyperammonemia Plan: Continue Lactulose. Monitor ammonia - trending down and now with a normal level of 32. (6) Hyponatremia Plan: Hypervolemic hyponatremia. Improving and sodium trending up. Continue w fluid restriction and Lasix. (7) Hepatitis C Plan: Patient had a hepatitis C antibody reactive positive in April 2016. (8) Cirrhosis Plan: Continue Lasix and spironolactone. Discharge Planning The patient is still hyponatremic at 128. Continue to monitor in the medical floor until sodium above 130. Problem Qualifiers (1) CHF (congestive heart failure): Qualified Code: I50.21 - Acute systolic congestive heart failure (2) CAD (coronary artery disease): Qualified Code: I25.10 - Coronary artery disease involving [place] coronary artery of [place] heart without angina pectoris (3) Hepatitis C: (4) Cirrhosis: Qualified Code: K74.60 - Cirrhosis of liver with ascites, unspecified hepatic cirrhosis type Douglas Bhardwaj MD Jul 29, 2016 14:15
[2016-07-30] VITALS (7 sets, daily range): BP systolic 93–106; BP diastolic 61–76; PULSE 92–104; RESP 18–20; TEMP 96.4–98.8; O2SAT 91–96
[2016-07-30] MEDS: LEVOTHYROXINE SODIUM 50 MCG TAB PO SCH (06:25)
[2016-07-30] MEDS: MIDODRINE 5 MG TAB PO SCH ×3 (06:25→15:53)
[2016-07-30] MEDS: INSULIN ASPART SUPPLEMENTAL SCALE SQ SCH ×4 (06:37→23:28)
[2016-07-30 08:14] LABS: BICARBONATE 28.2 MEQ/L (21.0-32.0); MAGNESIUM 1.6 MG/DL (1.5-2.5); POTASSIUM 4.1 MEQ/L (3.5-5.1)
[2016-07-30] MEDS ORDERED: FUROSEMIDE 20 MG/2 ML VIAL IV PUSH SCH (09:00)
[2016-07-30] MEDS: PANTOPRAZOLE SOD 40 MG DELAYED RELEASE TAB PO SCH (09:55)
[2016-07-30] MEDS: SPIRONOLACTONE 25 MG TAB PO SCH (09:55)
[2016-07-30] MEDS: FUROSEMIDE 20 MG TAB PO SCH (09:55)
[2016-07-30] MEDS: DOCUSATE SODIUM 50 MG/SENNA 8.6 MG TAB PO SCH ×2 (09:55→21:00)
[2016-07-30] MEDS: ASPIRIN 81 MG CHEW TAB CHEW SCH (09:55)
[2016-07-30] MEDS: CARVEDILOL 3.125 MG TAB PO SCH ×2 (09:55→23:29)
[2016-07-30] MEDS: LACTULOSE SYRUP 20 GM/30 ML CUP PO SCH (09:55)
[2016-07-30] MEDS: GABAPENTIN 300 MG CAP PO SCH ×3 (09:55→17:09)
--- NOTE | 2016-07-30 11:29 | PD.PN.STU ---
Subjective Remarks Patient states that she thinks the swelling in her legs is decreased from yesterday. She reports a new onset cough and chest pain that occurs only with coughing or walking. This began over night. She says her cough is productive. She has a history of COPD. She also says she has the shakes, but denies any fever, shortness of breath, N/V, abdominal pain. Objective Vitals Vital Signs Date Time Temp Pulse Resp B/P Pulse Ox O2 Delivery O2 Flow Rate FiO2 07/30/16 08:10 97.5 92 20 99/67 92 07/30/16 04:00 96.9 94 20 93/61 95 07/30/16 00:00 96.4 104 20 103/70 96 07/29/16 20:00 98.8 103 20 191/72 98 07/29/16 16:44 96.4 89 20 80/57 100 07/29/16 12:07 97.5 93 20 88/65 98 I/O 07/29/16 07/29/16 07/29/16 07/30/16 07/30/16 07/30/16 07:00 15:00 23:00 07:00 15:00 23:00 Intake Total 120 ml 240 ml Balance 120 ml 240 ml Intake Oral 120 ml 240 ml # Voids 3 5 3 2 # Bowel Movements 0 0 0 Result Diagram: 07/29/16 1230 07/30/16 0640 Objective Remarks GENERAL: This is a well-nourished, well-developed patient, in no apparent distress. NECK: Trachea midline. No JVD or lymphadenopathy. Supple, nontender, no meningeal signs. CARDIOVASCULAR: Regular rate and rhythm without murmurs, gallops, or rubs. RESPIRATORY: Bilateral lower lobe crackles and wheezing auscultated. GASTROINTESTINAL: Abdomen soft, non-tender, nondistended. No hepato-splenomegaly , or palpable masses. No guarding. A/P Assessment and Plan 1. CHF: - Volume overload - Pedal pitting edema still 2+ but improving - Hyponatremia gradually improving, most recent level 131. - patient is stable, continue current regimen with fluid restriction and oral Lasix 2. Cough - new onset, productive - history of COPD - CXR ordered 3. Chest pain: associated with cough and movement only. Localized to sternum. 4. CAD - Continue Aspirin. 4. T2DM: - continue with insulin Novolog, monitor accuchecks. Last hemoglobin A1c was 7.4 on 05/14. Diabetes is uncontrolled. Blood sugar is stable. Bhavna Gonzalez Jul 30, 2016 11:29 Douglas Bhardwaj MD Jul 31, 2016 16:33
--- NOTE | 2016-07-30 12:34 | RADRPT ---
EXAM DATE/TIME: 07/30/2016 12:07 [facility] COMPARISON: CHEST SINGLE AP, July 28, 2016, 4:21. INDICATIONS : Cough MEDICAL HISTORY : Hypertension. Myocardial infarction. Chronic obstructive pulmonary disease SURGICAL HISTORY : Pacemaker. Coronary artery stent. ENCOUNTER: Subsequent ACUITY: 1 week PAIN SCORE: 6/10 LOCATION: Bilateral chest FINDINGS: Stable single lead AICD device and right IJ central venous catheter. No significant focal pleural-par enchymal opacities. Excellent is enlarged. Remainder of the exam is unchanged. CONCLUSION: 1. Stable cardiomegaly without failure. 2. No acute abnormality or significant interval change. Sandor Perez MD on July 30, 2016 at 12:30 Board Certified Radiologist. This report was verified electronically.
[2016-07-30] MEDS ORDERED: methylPREDNISolone SOD SUCC 125 MG/2 ML VIAL IV PUSH ONE (12:45)
--- NOTE | 2016-07-30 12:50 | HHI.PR ---
Subjective Remarks Patient c/o cough and chest pain with coughing denies fevers/chills states edema is improving Objective Vitals Vital Signs Date Time Temp Pulse Resp B/P Pulse Ox O2 Delivery O2 Flow Rate FiO2 07/30/16 11:59 98.8 100 20 96/64 91 07/30/16 08:10 97.5 92 20 99/67 92 07/30/16 04:00 96.9 94 20 93/61 95 07/30/16 00:00 96.4 104 20 103/70 96 07/29/16 20:00 98.8 103 20 191/72 98 07/29/16 16:44 96.4 89 20 80/57 100 I/O 07/29/16 07/29/16 07/29/16 07/30/16 07/30/16 07/30/16 07:00 15:00 23:00 07:00 15:00 23:00 Intake Total 120 ml 240 ml Balance 120 ml 240 ml Intake Oral 120 ml 240 ml # Voids 3 5 3 2 # Bowel Movements 0 0 0 Result Diagram: 07/29/16 1230 07/30/16 0640 Objective Remarks GENERAL: This is a well-nourished, well-developed patient, in no apparent distress. SKIN: No rashes, ecchymoses or lesions. Cool and dry. HEAD: Atraumatic. Normocephalic. No temporal or scalp tenderness. EYES: Pupils equal round and reactive. Extraocular motions intact. No scleral icterus. No injection or drainage. ENT: Nose without bleeding, purulent drainage or septal hematoma. Throat without erythema, tonsillar hypertrophy or exudate. Uvula midline. Airway patent. NECK: Trachea midline. No JVD or lymphadenopathy. Supple, nontender, no meningeal signs. CARDIOVASCULAR: Regular rate and rhythm without murmurs, gallops, or rubs. RESPIRATORY: Clear to auscultation. Breath sounds equal bilaterally. No wheezes , rales, or rhonchi. GASTROINTESTINAL: Abdomen soft, non-tender, nondistended. No hepato-splenomegaly , or palpable masses. No guarding. MUSCULOSKELETAL: Extremities without clubbing, cyanosis, (+) 3 edema. No joint tenderness, effusion, or edema noted. No calf tenderness. Negative Homans sign bilaterally. NEUROLOGICAL: Awake and alert. Cranial nerves II through XII intact. Motor and sensory grossly within normal limits. Five out of 5 muscle strength in all muscle groups. Normal speech. Procedures none A/P Problem List: (1) CHF (congestive heart failure) ICD Code: I50.9 Status: Chronic (2) CAD (coronary artery disease) ICD Code: I25.10 Status: Chronic (3) Type 2 diabetes mellitus with hyperglycemia, with long-term current use of insulin ICD Code: E11.65 Status: Acute (4) Acute kidney injury ICD Code: N17.9 Status: Acute (5) Hyperammonemia ICD Code: E72.20 Status: Acute (6) Hyponatremia ICD Code: E87.1 Status: Acute (7) Hepatitis C ICD Code: B19.20 Status: Chronic (8) Cirrhosis ICD Code: K74.60 Status: Chronic (9) Cough ICD Code: R05 Status: Acute Plan: Likely due to mild COPD exacerbation. Will Give Solumedrol 60 mg IV once and then start on oral prednisone. check CXR. Will also check EKG for Chest pain. Assessment and Plan (1) CHF (congestive heart failure) Plan: Continue IV Lasix and spironolactone. Echocardiogram performed on 07/21/16 showed a cavity size which was probably to moderately dilated with severely reduced systolic function with an EF in 3-15-20 %. Diffuse hypokinesis. Moderate mitral valve regurgitation, moderate tricuspid regurgitation. 6/7 bilateral lower extremity edema almost resolved. I will discontinue IV Lasix and start on oral Lasix. (2) CAD (coronary artery disease) Plan: Continue Aspirin. Cardiology has been consulted on previous admission. (3) Type 2 diabetes mellitus with hyperglycemia, with long-term current use of insulin Plan: SSI with insulin Novolog, monitor accuchecks. Last hemoglobin A1c was 7.4 on 05/14. Diabetes is uncontrolled. Blood sugar seems to be stable. (4) Acute kidney injury Plan: Creatinine continues to trend down. Continue to monitor BUN/creatinine. Slides and O's, avoid nephrotoxins. (5) Hyperammonemia Plan: Continue Lactulose. Monitor ammonia - trending down and now with a normal level of 32. (6) Hyponatremia Plan: Hypervolemic hyponatremia. Improving and sodium trending up. Continue w fluid restriction and Lasix. (7) Hepatitis C Plan: Patient had a hepatitis C antibody reactive positive in April 2016. (8) Cirrhosis Plan: Continue Lasix and spironolactone. Discharge Planning Patient has cough - mild copd exacerbation. DC pending CXR and clinical improvement. Problem Qualifiers (1) CHF (congestive heart failure): Qualified Code: I50.21 - Acute systolic congestive heart failure (2) CAD (coronary artery disease): Qualified Code: I25.10 - Coronary artery disease involving [place] coronary artery of [place] heart without angina pectoris (3) Hepatitis C: (4) Cirrhosis: Qualified Code: K74.60 - Cirrhosis of liver with ascites, unspecified hepatic cirrhosis type Douglas Bhardwaj MD Jul 30, 2016 12:50
[2016-07-30 13:01] LABS: INTERNATIONAL NORMALIZED RATIO 2.2 RATIO; PROTHROMBIN TIME - PATIENT 25.4 SEC (9.8-11.6)
[2016-07-30] MEDS ORDERED: IRON SUCROSE INJ 200 MG in SODIUM CHLORIDE 0.9% INJ 100 ML IV ONE (14:00)
[2016-07-30] MEDS: RESP: ALBUTEROL 2.5 MG/IPRATROPIUM 0.5 MG NEB (SCH) NEB ×2 (15:39→20:26)
[2016-07-30] MEDS: FERROUS SULFATE 325 MG (65 MG ELEMENTAL IRON) TAB PO SCH (15:53)
[2016-07-30] MEDS: SODIUM CHLORIDE 0.9% FLUSH 10 ML FLUSH IV FLUSH SCH ×2 (17:15→23:29)
[2016-07-31] VITALS (8 sets, daily range): BP systolic 83–107; BP diastolic 53–83; PULSE 88–127; RESP 16–40; TEMP 95.7–98.2; O2SAT 92–100
[2016-07-31] MEDS: LEVOTHYROXINE SODIUM 50 MCG TAB PO SCH (06:36)
[2016-07-31] MEDS: INSULIN ASPART SUPPLEMENTAL SCALE SQ SCH ×4 (06:36→21:00)
[2016-07-31] MEDS: MIDODRINE 5 MG TAB PO SCH ×3 (06:36→18:49)
[2016-07-31] MEDS: LACTULOSE SYRUP 20 GM/30 ML CUP PO SCH (09:00)
[2016-07-31] MEDS ORDERED: predniSONE 20 MG TAB PO SCH (09:00)
[2016-07-31] MEDS: SODIUM CHLORIDE 0.9% FLUSH 10 ML FLUSH IV FLUSH SCH ×2 (09:00→22:27)
[2016-07-31] MEDS: PANTOPRAZOLE SOD 40 MG DELAYED RELEASE TAB PO SCH (09:17)
[2016-07-31] MEDS: ASPIRIN 81 MG CHEW TAB CHEW SCH (09:18)
[2016-07-31] MEDS: CARVEDILOL 3.125 MG TAB PO SCH ×2 (09:19→21:00)
[2016-07-31] MEDS: DOCUSATE SODIUM 50 MG/SENNA 8.6 MG TAB PO SCH ×2 (09:19→21:00)
[2016-07-31] MEDS: SPIRONOLACTONE 25 MG TAB PO SCH (09:20)
[2016-07-31] MEDS: GABAPENTIN 300 MG CAP PO SCH ×3 (09:20→18:22)
[2016-07-31] MEDS: FUROSEMIDE 20 MG TAB PO SCH (09:21)
--- NOTE | 2016-07-31 09:22 | PD.PN.STU ---
Subjective Remarks Patient has no acute complaints or changes overnight. She states that her productive cough has improved from yesterday. She denies any chest pain now. Lower extremity edema is improving bilaterally. She denies SOB, N/V, dizziness, headaches, fevers, chills. She still has the central line in place. Objective Vitals Vital Signs Date Time Temp Pulse Resp B/P Pulse Ox O2 Delivery O2 Flow Rate FiO2 07/31/16 09:12 94 Nasal Cannula 2.00 07/31/16 08:34 97.9 103 18 107/83 100 07/31/16 04:00 95.7 98 16 93/67 99 07/31/16 00:00 96.0 88 18 99/69 92 07/30/16 20:27 94 07/30/16 20:00 97.2 92 18 94/67 93 07/30/16 15:54 97.2 102 20 106/76 93 07/30/16 11:59 98.8 100 20 96/64 91 I/O 07/30/16 07/30/16 07/30/16 07/31/16 07/31/16 07/31/16 07:00 15:00 23:00 07:00 15:00 23:00 Intake Total 240 ml 240 ml 600 ml 340 ml Balance 240 ml 240 ml 600 ml 340 ml Intake Oral 240 ml 240 ml 600 ml 340 ml # Voids 2 4 2 # Bowel Movements 0 Result Diagram: 07/29/16 1230 07/30/16 0640 Objective Remarks GENERAL: This is a well-nourished, well-developed patient, in no apparent distress. NECK: Trachea midline. No JVD or lymphadenopathy. Supple, nontender, no meningeal signs. CARDIOVASCULAR: Regular rate and rhythm without murmurs, gallops, or rubs. Peripheral pulses 2+. Bilateral lower extremity edema 1+ RESPIRATORY: Bilateral lower lobe crackles and quiet wheezing auscultated. GASTROINTESTINAL: Abdomen soft, non-tender, nondistended. No hepato-splenomegaly , or palpable masses. No guarding. A/P Assessment and Plan 1. Acute on Chronic CHF: - Volume overload - Pedal pitting edema still 1+ but improving - Hyponatremia gradually improving, most recent level 131. - patient is stable, continue current regimen with fluid restriction and oral Lasix 2. Cough - new onset, productive - history of COPD - CXR negative for infiltrates 3. Chest pain: - associated with cough and movement only. Localized to sternum. - improved from yesterday - EKG showed normal sinus rhythm with PVCs. 4. CAD - Continue Aspirin. Bhavna Gonzalez Jul 31, 2016 09:22 Douglas Bhardwaj MD Jul 31, 2016 16:34
[2016-07-31] MEDS: RESP: ALBUTEROL 2.5 MG/IPRATROPIUM 0.5 MG NEB (SCH) NEB ×3 (09:50→16:03)
[2016-07-31] MEDS ORDERED: LIDOCAINE 1%/EPINEPHrine 1:100,000 SOLN 20 ML VIAL ONE (10:18)
--- NOTE | 2016-07-31 10:45 | RADRPT ---
EXAM DATE/TIME: 07/31/2016 00:00 [facility] COMPARISON: No previous studies available for comparison. INDICATIONS : Patient presents with liver cirrhosis and is in need of tunneled venous catheter removal that is no l onger needed. MEDICAL HISTORY : Hepatitis C Chronic kidney disease stage III Liver cirrhosis Hypertension Hyperlipidemia Coronary artery disease status post cardiac stent Chronic systolic heart failure AICD placement COPD Insulin-dependent diabetes mellitus Hypothyroidism SURGICAL HISTORY : x3 Tubal ligation Cholecystectomy Cardiac stent placement AICD placement ENCOUNTER: Subsequent ACUITY: 1 month PAIN SCORE: 0/10 LOCATION: n/a IMAGE SERIES: PROCEDURE : 1. PermaCath removal. The risks, benefits and alternatives to the procedure were explained and verbal and written consent w as obtained. The site was prepped in sterile fashion. Full sterile technique was used, including ca p, mask, sterile gloves and gown and a large sterile sheet. Hand hygiene and 2% chlorhexidine and/or betadine/alcohol prep was utilized per protocol for cutaneous antisepsis. The skin and subcutaneous tissues were infiltrated with local anesthetic solution. The tract was anesthetized with 1% Lidocaine using. The Permcath was dissected from the subcutaneous tissues and easily removed in one piece. Manual pressure was applied to the venotomy site until hem ostasis was obtained. Sterile dressing was applied. The patient tolerated the procedure well and there were no complications. CONCLUSION: Uncomplicated Permcath removal. Sandor Perez MD on July 31, 2016 at 10:43 Board Certified Radiologist. This report was verified electronically.
[2016-07-31] MEDS: FERROUS SULFATE 325 MG (65 MG ELEMENTAL IRON) TAB PO SCH ×2 (12:31→18:21)
[2016-07-31] MEDS: traMADol HCL 50 MG TAB PO PRN ×3 (12:37→22:31)
--- NOTE | 2016-07-31 16:31 | HHI.PR ---
Subjective Remarks Patient states cough is still very bad denies fevers/chills edema in legs better feels SOB Objective Vitals Vital Signs Date Time Temp Pulse Resp B/P Pulse Ox O2 Delivery O2 Flow Rate FiO2 07/31/16 16:00 98.2 102 20 83/53 97 07/31/16 12:09 95.8 127 40 106/75 98 07/31/16 09:12 94 Nasal Cannula 2.00 07/31/16 08:34 97.9 103 18 107/83 100 07/31/16 04:00 95.7 98 16 93/67 99 07/31/16 00:00 96.0 88 18 99/69 92 07/30/16 20:27 94 07/30/16 20:00 97.2 92 18 94/67 93 I/O 07/30/16 07/30/16 07/30/16 07/31/16 07/31/16 07/31/16 07:00 15:00 23:00 07:00 15:00 23:00 Intake Total 240 ml 240 ml 600 ml 340 ml 480 ml Balance 240 ml 240 ml 600 ml 340 ml 480 ml Intake Oral 240 ml 240 ml 600 ml 340 ml 480 ml # Voids 2 4 2 5 # Bowel Movements 0 3 Result Diagram: 07/29/16 1230 07/30/16 0640 Imaging Last Impressions Central Venous Line 07/31/16 0000 Signed Impressions: Service Date/Time: Sunday, July 31, 2016 00:00 - CONCLUSION: Uncomplicated Permcath removal. Sandor Perez MD Chest X-Ray 07/30/16 0000 Signed Impressions: Service Date/Time: July 12:07 - CONCLUSION: 1. Stable cardiomegaly without failure. 2. No acute abnormality or significant interval change. Sandor Perez MD Objective Remarks GENERAL: This is a well-nourished, well-developed patient, in no apparent distress. SKIN: No rashes, ecchymoses or lesions. Cool and dry. HEAD: Atraumatic. Normocephalic. No temporal or scalp tenderness. EYES: Pupils equal round and reactive. Extraocular motions intact. No scleral icterus. No injection or drainage. ENT: Nose without bleeding, purulent drainage or septal hematoma. Throat without erythema, tonsillar hypertrophy or exudate. Uvula midline. Airway patent. NECK: Trachea midline. No JVD or lymphadenopathy. Supple, nontender, no meningeal signs. CARDIOVASCULAR: Regular rate and rhythm without murmurs, gallops, or rubs. RESPIRATORY: Clear to auscultation. Diffuse bilateral inspiratory and expiratory wheezing. No rhonchi. Mild crackles at bases bilaterally. GASTROINTESTINAL: Abdomen soft, non-tender, nondistended. No hepato-splenomegaly , or palpable masses. No guarding. MUSCULOSKELETAL: Extremities without clubbing, cyanosis, (+) 3 edema. No joint tenderness, effusion, or edema noted. No calf tenderness. Negative Homans sign bilaterally. NEUROLOGICAL: Awake and alert. Cranial nerves II through XII intact. Motor and sensory grossly within normal limits. Five out of 5 muscle strength in all muscle groups. Normal speech. Procedures none Medications and IVs Current Medications Medications (Trade) Dose Ordered Sig/Digna Route Start Time Stop Time Status Last Admin (NS Flush) 2 ml UNSCH PRN IV FLUSH 07/27/16 14:00 (NS Flush) 2 ml BID IV FLUSH 07/27/16 21:00 07/31/16 09:00 (Tylenol) 650 mg Q4H PRN PO 07/27/16 14:00 (Zofran Inj) 4 mg Q6H PRN IVP 07/27/16 14:00 (Mitzy-Colace) 1 tab BID PO 07/27/16 21:00 07/31/16 09:19 (Milk Of Magnesia Liq) 30 ml Q12H PRN PO 07/27/16 14:00 (Senokot) 17.2 mg Q12H PRN PO 07/27/16 14:00 (Dulcolax Supp) 10 mg DAILY PRN RECTAL 07/27/16 14:00 (Lactulose Liq) 30 ml DAILY PRN PO 07/27/16 14:00 (D50w (Vial) Inj) 50 ml UNSCH PRN IV 07/27/16 14:00 (Glucagon Inj) 1 mg UNSCH PRN OTHER 07/27/16 14:00 (Aspirin Chew) 81 mg DAILY CHEW 07/28/16 09:00 07/31/16 09:18 (Coreg) 3.125 mg Q12HR PO 07/27/16 21:00 07/31/16 09:19 (Lactulose Liq) 30 ml DAILY PO 07/28/16 09:00 07/30/16 09:55 (Synthroid) 50 mcg DAILY@0600 PO 07/28/16 06:00 07/31/16 06:36 (Aldactone) 25 mg DAILY PO 07/28/16 09:00 07/31/16 09:20 (Ultram) 50 mg Q6H PRN PO 07/27/16 18:00 07/31/16 18:56 (Protonix) 40 mg DAILY PO 07/28/16 09:00 07/31/16 09:17 (Zofran Odt) 4 mg Q6H PRN PO 07/27/16 18:00 (Neurontin) 300 mg TID PO 07/29/16 09:00 07/31/16 18:22 (Mag-Al Plus Susp Liq) 30 ml Q6H PRN PO 07/28/16 19:30 (Proamatine) 10 mg TID@,, PO 07/29/16 12:00 07/31/16 18:49 (Lasix) 20 mg DAILY PO 07/30/16 09:00 07/31/16 09:21 (Ferrous Sulfate) 325 mg BID@, PO 07/30/16 17:00 07/31/16 18:21 (Robitussin [place] Pediatric Cough Liq) 7.5 mg Q6H PRN PO 07/31/16 16:15 Methylprednisolone Sodium Succinate 40 mg 40 mg Q6HR IV PUSH 08/01/16 00:00 (Levaquin 750 Mg Premix Inj) 150 ml @ 100 mls/hr DAILY@18 IV 07/31/16 17:15 07/31/16 18:51 Urinary Catheter: No Vascular Central Line Catheter: No A/P Problem List: (1) CHF (congestive heart failure) ICD Code: I50.9 Status: Chronic (2) CAD (coronary artery disease) ICD Code: I25.10 Status: Chronic (3) Type 2 diabetes mellitus with hyperglycemia, with long-term current use of insulin ICD Code: E11.65 Status: Acute (4) Acute kidney injury ICD Code: N17.9 Status: Acute (5) Hyperammonemia ICD Code: E72.20 Status: Acute (6) Hyponatremia ICD Code: E87.1 Status: Acute (7) Hepatitis C ICD Code: B19.20 Status: Chronic (8) Cirrhosis ICD Code: K74.60 Status: Chronic (9) COPD with acute exacerbation ICD Code: J44.1 Status: Acute Plan: Patient is still coughing frequently. Chest pain likely secondary to frequent cough and likely musculoskeletal. EKG reviewed by me and done on shows sinus rhythm at 88 bpm without ischemic changes. Chest x-ray did not show any infiltrates. Q the patient has bilateral expiratory wheezing I will start the patient on IV Solu-Medrol. Will give 125 mg IV now and then we'll continue on 40 mg IV every 6 hours. I will also start the patient IV Levaquin. Will Rx dextromethorphan as needed for cough. Continue DuoNeb's every 6 hours while awake and then every 2 hours as needed for shortness of breath/wheezing. Continue supplemental oxygen. Will order incentive spirometry as well. Assessment and Plan (1) CHF (congestive heart failure) Plan: Continue IV Lasix and spironolactone. Echocardiogram performed on 07/21/16 showed a cavity size which was probably to moderately dilated with severely reduced systolic function with an EF in 3-15-20 %. Diffuse hypokinesis. Moderate mitral valve regurgitation, moderate tricuspid regurgitation. 07/29 bilateral lower extremity edema almost resolved. I will discontinue IV Lasix and start on oral Lasix. 07/31 CHF much improved continue Lasix. (2) CAD (coronary artery disease) Plan: Continue Aspirin. Cardiology has been consulted on previous admission. (3) Type 2 diabetes mellitus with hyperglycemia, with long-term current use of insulin Plan: SSI with insulin Novolog, monitor accuchecks. Last hemoglobin A1c was 7.4 on 05/14. Diabetes is uncontrolled. Blood sugar seems to be stable. (4) Acute kidney injury Plan: Creatinine continues to trend down. Continue to monitor BUN/creatinine. Slides and O's, avoid nephrotoxins. (5) Hyperammonemia Plan: Continue Lactulose. Monitor ammonia - trending down and now with a normal level of 32. (6) Hyponatremia Plan: Hypervolemic hyponatremia. Improving and sodium trending up. Continue w fluid restriction and Lasix. (7) Hepatitis C Plan: Patient had a hepatitis C antibody reactive positive in April 2016. (8) Cirrhosis Plan: Continue Lasix and spironolactone. Discharge Planning The patient is still hyponatremic at 128. Continue to monitor in the medical floor until sodium above 130. Problem Qualifiers (1) CHF (congestive heart failure): Qualified Code: I50.21 - Acute systolic congestive heart failure (2) CAD (coronary artery disease): Qualified Code: I25.10 - Coronary artery disease involving [place] coronary artery of [place] heart without angina pectoris (3) Hepatitis C: (4) Cirrhosis: Qualified Code: K74.60 - Cirrhosis of liver with ascites, unspecified hepatic cirrhosis type Douglas Bhardwaj MD Jul 31, 2016 16:31
[2016-07-31] MEDS ORDERED: methylPREDNISolone SOD SUCC 125 MG/2 ML VIAL IV PUSH ONE (16:45)
--- NOTE | 2016-07-31 17:55 | EKG ---
Date Performed: 07/30/2016 Time Performed: 13:09:10 PTAGE: 45 years EKG: Sinus rhythm RIGHT AXIS POSSIBLE RIGHT VENTRICULAR HYPERTROPHY ABNORMAL ECG PREVIOUS TRACING : 07/21/2016 10.49 Compared to prior tracing no significant change DOCTOR: Agustín Pelayo Interpretating Date/Time 07/31/2016 17:53:31
[2016-07-31] MEDS: LEVOFLOXACIN 750 MG PREMIX INJ 150 ML IV SCH ×2 (18:49→18:51)
[2016-07-31] MEDS: RESP: ALBUTEROL 2.5 MG/IPRATROPIUM 0.5 MG NEB (PRN) NEB (21:12)
[2016-07-31] MEDS: methylPREDNISolone SOD SUCC 40 MG/1 ML VIAL IV PUSH SCH (23:13)
[2016-08-01] VITALS (8 sets, daily range): BP systolic 93–107; BP diastolic 65–75; PULSE 94–100; RESP 18–20; TEMP 96–97.4; O2SAT 95–99
[2016-08-01 03:29] LABS: AUTOMATED NEUTROPHIL # 16.2 TH/MM3 (1.8-7.7); BASOPHIL % 0.1 % (0.0-2.0); HEMATOCRIT 33.5 % (35.0-46.0); LYMPHOCYTE # 0.7 TH/MM3 (1.0-4.8); MEAN CELL VOLUME 76.4 FL (80.0-100.0); MEAN CORPUSCULAR HGB CONC 30.1 % (32.0-36.0); MONO % 1.8 % (0.0-8.0); NEUT % 94.1 % (16.0-70.0); PLATELET COUNT 173 TH/MM3 (150-450); RED BLOOD COUNT 4.39 MIL/MM3 (4.00-5.30); RED CELL DISTRIBUTION WIDTH 26.5 % (11.6-17.2); WHITE BLOOD COUNT 17.2 TH/MM3 (4.0-11.0)
[2016-08-01 03:35] LABS: HEMO FLAGS AUTO DIFF
[2016-08-01 04:14] LABS: ALKALINE PHOSPHATASE 85 U/L (45-117); ALT (GPT) 19 U/L (10-53); ANION GAP 12 MEQ/L (5-15); AST (GOT) 28 U/L (15-37); BICARBONATE 24.3 MEQ/L (21.0-32.0); BLOOD UREA NITROGEN 27 MG/DL (7-18); CHLORIDE 90 MEQ/L (98-107); GLOMERULAR FILTRATION RATE 27 ML/MIN (>89); POTASSIUM 4.8 MEQ/L (3.5-5.1); SODIUM (NA) 126 MEQ/L (136-145); TOTAL BILIRUBIN ADULT 3.1 MG/DL (0.2-1.0)
[2016-08-01 05:25] LABS: SCAN/DIFF AUTO DIFF CONFIRMED
[2016-08-01 05:27] LABS: PLATELET ESTIMATE SMEAR NORMAL (NORMAL); PLATELET MORPHOLOGY NORMAL (NORMAL)
[2016-08-01] MEDS: methylPREDNISolone SOD SUCC 40 MG/1 ML VIAL IV PUSH SCH ×3 (06:16→21:21)
[2016-08-01] MEDS: INSULIN ASPART SUPPLEMENTAL SCALE SQ SCH ×4 (06:16→21:18)
[2016-08-01] MEDS: LEVOTHYROXINE SODIUM 50 MCG TAB PO SCH (06:16)
[2016-08-01] MEDS: MIDODRINE 5 MG TAB PO SCH ×3 (06:16→16:46)
[2016-08-01] MEDS: traMADol HCL 50 MG TAB PO PRN ×2 (06:18→21:19)
--- NOTE | 2016-08-01 08:12 | PD.PN.STU ---
Subjective Remarks Patient states that she is feeling better today and that she is ready to go home. Her cough has improved with the oral steroids and antibiotics started yesterday she says. She only has chest pain when she coughs and describes it as feeling sore. She denies any acute changes over night. No fever, chills, N/V, abdominal pain. Objective Vitals Vital Signs Date Time Temp Pulse Resp B/P Pulse Ox O2 Delivery O2 Flow Rate FiO2 08/01/16 04:00 96.7 94 18 93/67 97 08/01/16 00:00 96.3 94 18 107/66 95 07/31/16 21:14 98 Nasal Cannula 3.00 07/31/16 20:00 97.2 91 16 88/62 98 07/31/16 16:00 98.2 102 20 83/53 97 07/31/16 12:09 95.8 127 40 106/75 98 07/31/16 09:12 94 Nasal Cannula 2.00 07/31/16 08:34 97.9 103 18 107/83 100 I/O 07/31/16 07/31/16 07/31/16 08/01/16 08/01/16 08/01/16 07:00 15:00 23:00 07:00 15:00 23:00 Intake Total 340 ml 480 ml 55 ml 40 ml Balance 340 ml 480 ml 55 ml 40 ml Intake Oral 340 ml 480 ml 55 ml 40 ml # Voids 2 5 3 # Bowel Movements 3 Result Diagram: 08/01/16 0305 08/01/16 0305 Objective Remarks GENERAL: This is a well-nourished, well-developed patient, in no apparent distress. NECK: Trachea midline. No JVD or lymphadenopathy. Supple, nontender, no meningeal signs. CARDIOVASCULAR: Regular rate and rhythm without murmurs, gallops, or rubs. Peripheral edema 1+ RESPIRATORY: Bilateral lower lobe crackles, quiet wheezing auscultated at right lung base. GASTROINTESTINAL: Abdomen soft, non-tender, nondistended. No hepato-splenomegaly , or palpable masses. No guarding. A/P Assessment and Plan 1. Acute on Chronic CHF: - Volume overload - Pedal pitting edema still 1+ but improving - Hyponatremia was gradually improving, sodium today back down to 126. - patient is stable 2. COPD exacerbation - new onset productive cough - CXR on 07/30 negative for infiltrates - Symptoms improving with IV methylprednisolone and oral prednisone and IV levofloxacin. 3. Acute Kidney injury - Cr increased for patient normal - most likely due to dehydration from fluid restriction and Lasix - Will give IV NS and stop lasix for now. 4. Musculoskeletal chest pain: - associated with cough and movement only. Localized to sternum. - improved from yesterday - EKG on 07/30 showed normal sinus rhythm with PVCs. 5. CAD - Continue Aspirin. Bhavna Gonzalez Aug 01, 2016 08:12 Douglas Bhardwaj MD Aug 01, 2016 23:04
[2016-08-01] MEDS: PANTOPRAZOLE SOD 40 MG DELAYED RELEASE TAB PO SCH (08:44)
[2016-08-01] MEDS: LACTULOSE SYRUP 20 GM/30 ML CUP PO SCH (08:45)
[2016-08-01] MEDS: GABAPENTIN 300 MG CAP PO SCH ×3 (08:46→16:46)
[2016-08-01] MEDS: SPIRONOLACTONE 25 MG TAB PO SCH (08:47)
[2016-08-01] MEDS: SODIUM CHLORIDE 0.9% FLUSH 10 ML FLUSH IV FLUSH SCH ×2 (08:47→21:19)
[2016-08-01] MEDS: CARVEDILOL 3.125 MG TAB PO SCH ×2 (08:47→21:18)
[2016-08-01] MEDS: ASPIRIN 81 MG CHEW TAB CHEW SCH (08:47)
[2016-08-01] MEDS: DOCUSATE SODIUM 50 MG/SENNA 8.6 MG TAB PO SCH ×2 (08:48→21:18)
[2016-08-01] MEDS ORDERED: FUROSEMIDE 20 MG TAB PO SCH (09:00)
[2016-08-01] MEDS: RESP: ALBUTEROL 2.5 MG/IPRATROPIUM 0.5 MG NEB (SCH) NEB ×3 (09:12→19:05)
[2016-08-01] MEDS: FERROUS SULFATE 325 MG (65 MG ELEMENTAL IRON) TAB PO SCH ×2 (11:30→16:47)
--- NOTE | 2016-08-01 12:42 | HHI.PR ---
Subjective Remarks Patient states she feels much better denies cp/sob cough still present but much improved wbc increased creatinine increased sodium lower at 126 Objective Vitals Vital Signs Date Time Temp Pulse Resp B/P Pulse Ox O2 Delivery O2 Flow Rate FiO2 08/01/16 09:12 99 21 08/01/16 08:00 97.4 98 18 93/75 98 08/01/16 04:00 96.7 94 18 93/67 97 08/01/16 00:00 96.3 94 18 107/66 95 07/31/16 21:14 98 Nasal Cannula 3.00 07/31/16 20:00 97.2 91 16 88/62 98 07/31/16 16:00 98.2 102 20 83/53 97 I/O 07/31/16 07/31/16 07/31/16 08/01/16 08/01/16 08/01/16 07:00 15:00 23:00 07:00 15:00 23:00 Intake Total 340 ml 480 ml 55 ml 40 ml Balance 340 ml 480 ml 55 ml 40 ml Intake Oral 340 ml 480 ml 55 ml 40 ml # Voids 2 5 3 3 # Bowel Movements 3 1 Result Diagram: 08/01/16 0305 08/01/16 0305 Imaging Last Impressions Central Venous Line 07/31/16 0000 Signed Impressions: Service Date/Time: Sunday, July 31, 2016 00:00 - CONCLUSION: Uncomplicated Permcath removal. Sandor Perez MD Chest X-Ray 07/30/16 0000 Signed Impressions: Service Date/Time: July 12:07 - CONCLUSION: 1. Stable cardiomegaly without failure. 2. No acute abnormality or significant interval change. Sandor Perez MD Objective Remarks GENERAL: This is a well-nourished, well-developed patient, in no apparent distress. SKIN: No rashes, ecchymoses or lesions. Cool and dry. HEAD: Atraumatic. Normocephalic. No temporal or scalp tenderness. EYES: Pupils equal round and reactive. Extraocular motions intact. No scleral icterus. No injection or drainage. ENT: Nose without bleeding, purulent drainage or septal hematoma. Throat without erythema, tonsillar hypertrophy or exudate. Uvula midline. Airway patent. NECK: Trachea midline. No JVD or lymphadenopathy. Supple, nontender, no meningeal signs. CARDIOVASCULAR: Regular rate and rhythm without murmurs, gallops, or rubs. RESPIRATORY: Diffuse bilateral inspiratory and expiratory wheezing improved from previous day. No rhonchi. Mild crackles at bases bilaterally. GASTROINTESTINAL: Abdomen soft, non-tender, nondistended. No hepato-splenomegaly , or palpable masses. No guarding. MUSCULOSKELETAL: Extremities without clubbing, cyanosis, (+) 3 edema. No joint tenderness, effusion, or edema noted. No calf tenderness. Negative Homans sign bilaterally. NEUROLOGICAL: Awake and alert. Cranial nerves II through XII intact. Motor and sensory grossly within normal limits. Five out of 5 muscle strength in all muscle groups. Normal speech. Procedures none Medications and IVs Current Medications Medications (Trade) Dose Ordered Sig/Digna Route Start Time Stop Time Status Last Admin (NS Flush) 2 ml UNSCH PRN IV FLUSH 07/27/16 14:00 (NS Flush) 2 ml BID IV FLUSH 07/27/16 21:00 08/01/16 21:19 (Tylenol) 650 mg Q4H PRN PO 07/27/16 14:00 (Zofran Inj) 4 mg Q6H PRN IVP 07/27/16 14:00 (Mitzy-Colace) 1 tab BID PO 07/27/16 21:00 08/01/16 21:18 (Milk Of Magnesia Liq) 30 ml Q12H PRN PO 07/27/16 14:00 (Senokot) 17.2 mg Q12H PRN PO 07/27/16 14:00 (Dulcolax Supp) 10 mg DAILY PRN RECTAL 07/27/16 14:00 (Lactulose Liq) 30 ml DAILY PRN PO 07/27/16 14:00 (D50w (Vial) Inj) 50 ml UNSCH PRN IV 07/27/16 14:00 (Glucagon Inj) 1 mg UNSCH PRN OTHER 07/27/16 14:00 (Aspirin Chew) 81 mg DAILY CHEW 07/28/16 09:00 08/01/16 08:47 (Coreg) 3.125 mg Q12HR PO 07/27/16 21:00 08/01/16 21:18 (Lactulose Liq) 30 ml DAILY PO 07/28/16 09:00 07/30/16 09:55 (Synthroid) 50 mcg DAILY@0600 PO 07/28/16 06:00 08/01/16 06:16 (Aldactone) 25 mg DAILY PO 07/28/16 09:00 08/01/16 08:47 (Ultram) 50 mg Q6H PRN PO 07/27/16 18:00 08/01/16 21:19 (Protonix) 40 mg DAILY PO 07/28/16 09:00 08/01/16 08:44 (Zofran Odt) 4 mg Q6H PRN PO 07/27/16 18:00 (Neurontin) 300 mg TID PO 07/29/16 09:00 08/01/16 16:46 (Mag-Al Plus Susp Liq) 30 ml Q6H PRN PO 07/28/16 19:30 (Proamatine) 10 mg TID@,, PO 07/29/16 12:00 08/01/16 16:46 (Ferrous Sulfate) 325 mg BID@, PO 07/30/16 17:00 08/01/16 16:47 Dextromethorphan 7.5 mg 7.5 mg Q6H PRN PO 07/31/16 16:15 Levofloxacin/ Dextrose 150 ml @ 100 mls/hr Q48H IV 08/02/16 18:00 (NS 1000 ml Inj) 1,000 ml @ 84 mls/hr [id number] IV 08/01/16 13:00 08/01/16 13:25 (SoluMEDROL INJ) 40 mg Q8H IV PUSH 08/01/16 20:00 08/01/16 21:21 (Ambien) 5 mg HS PRN PO 08/01/16 12:45 (Xanax) 0.25 mg Q8H PRN PO 08/01/16 12:45 08/01/16 22:39 Urinary Catheter: No Vascular Central Line Catheter: No A/P Problem List: (1) CHF (congestive heart failure) ICD Code: I50.9 Status: Chronic (2) CAD (coronary artery disease) ICD Code: I25.10 Status: Chronic (3) Type 2 diabetes mellitus with hyperglycemia, with long-term current use of insulin ICD Code: E11.65 Status: Acute (4) Acute kidney injury ICD Code: N17.9 Status: Acute (5) Hyperammonemia ICD Code: E72.20 Status: Acute (6) Hyponatremia ICD Code: E87.1 Status: Acute (7) Hepatitis C ICD Code: B19.20 Status: Chronic (8) Cirrhosis ICD Code: K74.60 Status: Chronic (9) COPD with acute exacerbation ICD Code: J44.1 Status: Acute Plan: Patient is still coughing frequently. Chest pain likely secondary to frequent cough and likely musculoskeletal. EKG reviewed by me and done on shows sinus rhythm at 88 bpm without ischemic changes. Chest x-ray did not show any infiltrates. Q the patient has bilateral expiratory wheezing I will start the patient on IV Solu-Medrol. Will give 125 mg IV now and then we'll continue on 40 mg IV every 6 hours. I will also start the patient IV Levaquin. Will Rx dextromethorphan as needed for cough. Continue DuoNeb's every 6 hours while awake and then every 2 hours as needed for shortness of breath/wheezing. Continue supplemental oxygen. Will order incentive spirometry as well. 08/01 COPD improving but patient still with wheezing. Taper Solumedrol IV to 40 mg Q 8 hrs. Continue O2 to keep o2 sat >92%. Continue duoneb's nebs. Upon review of EMR Levaquin has not been administered and is scheduled for tomorrow. Will change to be given today. Assessment and Plan (1) CHF (congestive heart failure) Plan: Treated with IV lasix or spironolactone Echocardiogram performed on 07/21/16 showed a cavity size which was mildly to moderately dilated with severely reduced systolic function with an EF in 3-15-20 %. Diffuse hypokinesis. Moderate mitral valve regurgitation, moderate tricuspid regurgitation. 07/29 bilateral lower extremity edema almost resolved. I will discontinue IV Lasix and start on oral Lasix. 07/31 CHF much improved continue Lasix. 08/01 Given rise in creatinine will hold lasix and spironolactone. (2) CAD (coronary artery disease) Plan: Continue Aspirin. Cardiology has been consulted on previous admission. (3) Type 2 diabetes mellitus with hyperglycemia, with long-term current use of insulin Plan: SSI with insulin Novolog, monitor accuchecks. Last hemoglobin A1c was 7.4 on 05/14. Diabetes is uncontrolled. blood sugars elevated likely due to steroid use. (4) Acute kidney injury Plan: Creatinine continues to trend down. Continue to monitor BUN/creatinine. Slides and O's, avoid nephrotoxins. 08/01 Creatinine increased from 1.2 to 1.9 with worsening DEL. I will hold lasix and give gentle IV fluids. Possible overdiuresis. (5) Hyperammonemia Plan: Continue Lactulose. Monitor ammonia - trending down and now with a normal level of 32. (6) Hyponatremia Plan: Hypervolemic hyponatremia. Improving and sodium trending up. Continue w fluid restriction and Lasix. 08/01 Sodium trended down to 126 - due to overdiuresis? (7) Hepatitis C Plan: Patient had a hepatitis C antibody reactive positive in April 2016 and has been evaluated by GI at the time. (8) Cirrhosis Plan: Hold Lasix and spironolactone due to rise in creatinine. Discharge Planning Patient with COPD exacerbation, worsening DEL and worsening hyponatremia. Continue to monitor in the medical floor. Problem Qualifiers (1) CHF (congestive heart failure): Qualified Code: I50.21 - Acute systolic congestive heart failure (2) CAD (coronary artery disease): Qualified Code: I25.10 - Coronary artery disease involving [place] coronary artery of [place] heart without angina pectoris (3) Hepatitis C: (4) Cirrhosis: Qualified Code: K74.60 - Cirrhosis of liver with ascites, unspecified hepatic cirrhosis type Douglas Bhardwaj MD Aug 01, 2016 12:42
[2016-08-01] MEDS ORDERED: ZOLPIDEM TARTRATE 5 MG TAB PO PRN (12:45)
[2016-08-01] MEDS: ALPRAZolam 0.25 MG TAB PO PRN ×2 (13:19→22:39)
[2016-08-01] MEDS: SODIUM CHLOR 0.9% 1000 ML INJ 1,000 ML IV SCH ×2 (13:25→23:59)
[2016-08-01 21:09] LABS: MEAN CORPUSCULAR HGB CONC 29.9 % (32.0-36.0)
[2016-08-01] MEDS: LORazepam 1 MG TAB PO PRN (23:54)
[2016-08-01] MEDS: INSULIN DETEMIR 100 UNITS/ML VIAL SQ SCH (23:58)
[2016-08-02] VITALS (7 sets, daily range): BP systolic 85–219; BP diastolic 61–88; PULSE 87–100; RESP 18–20; TEMP 96.6–99.5; O2SAT 94–97
[2016-08-02] MEDS: methylPREDNISolone SOD SUCC 40 MG/1 ML VIAL IV PUSH SCH ×3 (03:09→22:28)
[2016-08-02] MEDS: traMADol HCL 50 MG TAB PO PRN (03:09)
[2016-08-02] MEDS: MIDODRINE 5 MG TAB PO SCH ×3 (05:07→17:07)
[2016-08-02] MEDS: LEVOTHYROXINE SODIUM 50 MCG TAB PO SCH (05:07)
[2016-08-02] MEDS: INSULIN ASPART SUPPLEMENTAL SCALE SQ SCH ×4 (06:39→21:00)
[2016-08-02 07:58] LABS: AUTOMATED NEUTROPHIL # 14.7 TH/MM3 (1.8-7.7); BASOPHIL % 0.3 % (0.0-2.0); HEMATOCRIT 30.1 % (35.0-46.0); LYMPH % 2.8 % (9.0-44.0); LYMPHOCYTE # 0.4 TH/MM3 (1.0-4.8); MEAN CELL VOLUME 77.1 FL (80.0-100.0); MONO % 2.3 % (0.0-8.0); NEUT % 94.6 % (16.0-70.0); PLATELET COUNT 162 TH/MM3 (150-450); RED BLOOD COUNT 3.91 MIL/MM3 (4.00-5.30); WHITE BLOOD COUNT 15.5 TH/MM3 (4.0-11.0)
[2016-08-02 08:11] LABS: HEMO FLAGS AUTO DIFF
[2016-08-02] MEDS: GABAPENTIN 300 MG CAP PO SCH ×3 (08:27→18:11)
[2016-08-02] MEDS: ASPIRIN 81 MG CHEW TAB CHEW SCH (08:27)
[2016-08-02] MEDS: DOCUSATE SODIUM 50 MG/SENNA 8.6 MG TAB PO SCH ×2 (08:27→22:30)
[2016-08-02] MEDS: PANTOPRAZOLE SOD 40 MG DELAYED RELEASE TAB PO SCH (08:27)
[2016-08-02 08:28] LABS: ALKALINE PHOSPHATASE 88 U/L (45-117); ALT (GPT) 18 U/L (10-53); ANION GAP 11 MEQ/L (5-15); AST (GOT) 22 U/L (15-37); BICARBONATE 23.6 MEQ/L (21.0-32.0); BLOOD UREA NITROGEN 42 MG/DL (7-18); CHLORIDE 93 MEQ/L (98-107); GLOMERULAR FILTRATION RATE 27 ML/MIN (>89); MAGNESIUM 1.8 MG/DL (1.5-2.5); POTASSIUM 4.2 MEQ/L (3.5-5.1); SODIUM (NA) 128 MEQ/L (136-145); TOTAL BILIRUBIN ADULT 2.3 MG/DL (0.2-1.0)
[2016-08-02] MEDS: CARVEDILOL 3.125 MG TAB PO SCH ×2 (09:00→21:00)
[2016-08-02] MEDS: SODIUM CHLORIDE 0.9% FLUSH 10 ML FLUSH IV FLUSH SCH ×2 (09:00→22:29)
[2016-08-02] MEDS: SPIRONOLACTONE 25 MG TAB PO SCH (09:00)
[2016-08-02] MEDS: LACTULOSE SYRUP 20 GM/30 ML CUP PO SCH (09:00)
[2016-08-02] MEDS: RESP: ALBUTEROL 2.5 MG/IPRATROPIUM 0.5 MG NEB (SCH) NEB ×3 (09:05→20:38)
[2016-08-02 10:38] LABS: BANDS 13 % (0-6); NEUTROPHIL # MANUAL DIFF 13.8 TH/MM3 (1.8-7.7); PLATELET ESTIMATE SMEAR NORMAL (NORMAL); PLATELET MORPHOLOGY NORMAL (NORMAL); POLYS (SEG NEUTROPHILS) 76 % (16-70); SCAN/DIFF FINAL DIFF MANUAL; TOXIC GRANULATION 1+ (NORMAL); TOXIC VACUOLATION PRESENT (NONE SEEN); WBC DIFF SAMPLE 100
[2016-08-02 10:39] LABS: OVALOCYTES 1+ (NORMAL); POLYCHROMASIA 2.5 % (0.0-1.9)
[2016-08-02] MEDS: FERROUS SULFATE 325 MG (65 MG ELEMENTAL IRON) TAB PO SCH ×2 (12:20→17:07)
[2016-08-02] MEDS: SODIUM CHLOR 0.9% 1000 ML INJ 1,000 ML IV SCH ×2 (12:50→23:22)
[2016-08-02] MEDS ORDERED: LEVOFLOXACIN 750 MG PREMIX INJ 150 ML IV SCH ×2 (18:00→19:00)
[2016-08-02] MEDS ORDERED: oxyCODONE/ACETAMINOPHEN 5 MG/325 MG TAB PO PRN (18:30)
[2016-08-02] MEDS: oxyCODONE/ACETAMINOPHEN 5 MG/325 MG TAB PO PRN (18:35)
--- NOTE | 2016-08-02 18:55 | HHI.PR ---
Subjective Remarks Patient feels better denies cough, sob or cp c/o bilateral calf pain vital signs stable worsening creatinine Objective Vitals Vital Signs Date Time Temp Pulse Resp B/P Pulse Ox O2 Delivery O2 Flow Rate FiO2 08/02/16 16:15 98.3 92 20 102/77 96 08/02/16 09:06 95 21 08/02/16 08:14 98.0 89 20 85/61 97 08/02/16 04:00 96.7 90 20 99/67 97 08/02/16 04:00 20 08/02/16 00:00 96.9 92 20 101/64 96 08/01/16 20:00 96.0 94 20 106/65 97 08/01/16 19:05 97 21 I/O 08/01/16 08/01/16 08/01/16 08/02/16 08/02/16 08/02/16 07:00 15:00 23:00 07:00 15:00 23:00 Intake Total 40 ml 720 ml 660 ml 1284 ml 960 ml Balance 40 ml 720 ml 660 ml 1284 ml 960 ml Intake Oral 40 ml 720 ml 240 ml 960 ml IV Total 420 ml 1284 ml # Voids 3 5 1 # Bowel Movements 1 0 Result Diagram: 08/02/16 0739 08/02/16 0739 Imaging Last Impressions Central Venous Line 07/31/16 0000 Signed Impressions: Service Date/Time: Sunday, July 31, 2016 00:00 - CONCLUSION: Uncomplicated Permcath removal. Sandor Perez MD Chest X-Ray 07/30/16 0000 Signed Impressions: Service Date/Time: July 12:07 - CONCLUSION: 1. Stable cardiomegaly without failure. 2. No acute abnormality or significant interval change. Sandor Perez MD Objective Remarks GENERAL: This is a well-nourished, well-developed patient, in no apparent distress. SKIN: No rashes, ecchymoses or lesions. Cool and dry. HEAD: Atraumatic. Normocephalic. No temporal or scalp tenderness. EYES: Pupils equal round and reactive. Extraocular motions intact. No scleral icterus. No injection or drainage. ENT: Nose without bleeding, purulent drainage or septal hematoma. Throat without erythema, tonsillar hypertrophy or exudate. Uvula midline. Airway patent. NECK: Trachea midline. No JVD or lymphadenopathy. Supple, nontender, no meningeal signs. CARDIOVASCULAR: Regular rate and rhythm without murmurs, gallops, or rubs. RESPIRATORY: Diffuse bilateral inspiratory and expiratory wheezing improved from previous day. No rhonchi. Mild crackles at bases bilaterally. GASTROINTESTINAL: Abdomen soft, non-tender, nondistended. No hepato-splenomegaly , or palpable masses. No guarding. MUSCULOSKELETAL: Extremities without clubbing, cyanosis, (+) 1 edema. No joint tenderness, effusion, or edema noted. No calf tenderness. Negative Homans sign bilaterally. NEUROLOGICAL: Awake and alert. Cranial nerves II through XII intact. Motor and sensory grossly within normal limits. Five out of 5 muscle strength in all muscle groups. Normal speech. Procedures none Medications and IVs Current Medications Medications (Trade) Dose Ordered Sig/Digna Route Start Time Stop Time Status Last Admin (NS Flush) 2 ml UNSCH PRN IV FLUSH 07/27/16 14:00 (NS Flush) 2 ml BID IV FLUSH 07/27/16 21:00 08/01/16 21:19 (Tylenol) 650 mg Q4H PRN PO 07/27/16 14:00 (Zofran Inj) 4 mg Q6H PRN IVP 07/27/16 14:00 (Mitzy-Colace) 1 tab BID PO 07/27/16 21:00 08/02/16 08:27 (Milk Of Magnesia Liq) 30 ml Q12H PRN PO 07/27/16 14:00 (Senokot) 17.2 mg Q12H PRN PO 07/27/16 14:00 (Dulcolax Supp) 10 mg DAILY PRN RECTAL 07/27/16 14:00 (Lactulose Liq) 30 ml DAILY PRN PO 07/27/16 14:00 (D50w (Vial) Inj) 50 ml UNSCH PRN IV 07/27/16 14:00 (Glucagon Inj) 1 mg UNSCH PRN OTHER 07/27/16 14:00 (Aspirin Chew) 81 mg DAILY CHEW 07/28/16 09:00 08/02/16 08:27 (Coreg) 3.125 mg Q12HR PO 07/27/16 21:00 08/01/16 21:18 (Lactulose Liq) 30 ml DAILY PO 07/28/16 09:00 07/30/16 09:55 (Synthroid) 50 mcg DAILY@0600 PO 07/28/16 06:00 08/02/16 05:07 (Aldactone) 25 mg DAILY PO 07/28/16 09:00 Hold 08/01/16 08:47 (Ultram) 50 mg Q6H PRN PO 07/27/16 18:00 08/02/16 03:09 (Protonix) 40 mg DAILY PO 07/28/16 09:00 08/02/16 08:27 (Zofran Odt) 4 mg Q6H PRN PO 07/27/16 18:00 (Neurontin) 300 mg TID PO 07/29/16 09:00 08/02/16 18:11 (Mag-Al Plus Susp Liq) 30 ml Q6H PRN PO 07/28/16 19:30 (Proamatine) 10 mg TID@,, PO 07/29/16 12:00 08/02/16 17:07 (Ferrous Sulfate) 325 mg BID@,17 PO 07/30/16 17:00 08/02/16 17:07 Dextromethorphan 7.5 mg 7.5 mg Q6H PRN PO 07/31/16 16:15 (NS 1000 ml Inj) 1,000 ml @ 100 mls/hr Q10H IV 08/01/16 13:00 08/01/16 23:59 (SoluMEDROL INJ) 40 mg Q8H IV PUSH 08/01/16 20:00 08/02/16 12:20 (Xanax) 0.25 mg Q8H PRN PO 08/01/16 12:45 08/01/16 22:39 Insulin Detemir 10 units 10 units HS SQ 08/01/16 23:15 08/01/16 23:58 (Levaquin 750 Mg Premix Inj) 150 ml @ 100 mls/hr Q48H IV 08/02/16 19:00 08/02/16 18:12 (Ativan) 1 mg HS PRN PO 08/01/16 23:30 08/01/16 23:54 (Percocet 5-325 Mg) 2 tab Q6H PRN PO 08/02/16 18:30 08/02/16 18:35 (Percocet 5-325 Mg) 1 tab Q4H PRN PO 08/02/16 18:30 Urinary Catheter: No Vascular Central Line Catheter: No A/P Problem List: (1) CHF (congestive heart failure) ICD Code: I50.9 Status: Chronic (2) CAD (coronary artery disease) ICD Code: I25.10 Status: Chronic (3) Type 2 diabetes mellitus with hyperglycemia, with long-term current use of insulin ICD Code: E11.65 Status: Acute (4) Acute kidney injury ICD Code: N17.9 Status: Acute (5) Hyperammonemia ICD Code: E72.20 Status: Acute (6) Hyponatremia ICD Code: E87.1 Status: Acute (7) Hepatitis C ICD Code: B19.20 Status: Chronic (8) Cirrhosis ICD Code: K74.60 Status: Chronic (9) COPD with acute exacerbation ICD Code: J44.1 Status: Acute Plan: Patient is still coughing frequently. Chest pain likely secondary to frequent cough and likely musculoskeletal. EKG reviewed by me and done on shows sinus rhythm at 88 bpm without ischemic changes. Chest x-ray did not show any infiltrates. Q the patient has bilateral expiratory wheezing I will start the patient on IV Solu-Medrol. Will give 125 mg IV now and then we'll continue on 40 mg IV every 6 hours. I will also start the patient IV Levaquin. Will Rx dextromethorphan as needed for cough. Continue DuoNeb's every 6 hours while awake and then every 2 hours as needed for shortness of breath/wheezing. Continue supplemental oxygen. Will order incentive spirometry as well. 08/01 COPD improving but patient still with wheezing. Taper Solumedrol IV to 40 mg Q 8 hrs. Continue O2 to keep o2 sat >92%. Continue duoneb's nebs. Upon review of EMR Levaquin has not been administered and is scheduled for tomorrow. Will change to be given today. 08/02 COPD much improved - with Taper Solu-Medrol to 40 mg IV every 12 hours. Continue IV Levaquin, bronchodilators and supplemental oxygen as above. (10) Bilateral calf pain ICD Code: M79.661 Status: Acute Plan: Will order venous Dopplers to rule out DVT. Assessment and Plan (1) CHF (congestive heart failure) Plan: Treated with IV lasix or spironolactone Echocardiogram performed on 07/21/16 showed a cavity size which was mildly to moderately dilated with severely reduced systolic function with an EF in 3-15-20 %. Diffuse hypokinesis. Moderate mitral valve regurgitation, moderate tricuspid regurgitation. 07/29 bilateral lower extremity edema almost resolved. I will discontinue IV Lasix and start on oral Lasix. 07/31 CHF much improved continue Lasix. 08/01 Given rise in creatinine will hold lasix and spironolactone. (2) CAD (coronary artery disease) Plan: Continue Aspirin. Cardiology has been consulted on previous admission. (3) Type 2 diabetes mellitus with hyperglycemia, with long-term current use of insulin Plan: SSI with insulin Novolog, monitor accuchecks. Last hemoglobin A1c was 7.4 on 05/14. Diabetes is uncontrolled. 08/01 blood sugars elevated likely due to steroid use. (4) Acute kidney injury Plan: Creatinine continues to trend down. Continue to monitor BUN/creatinine. Slides and O's, avoid nephrotoxins. 08/01 Creatinine increased from 1.2 to 1.9 with worsening DEL. I will hold lasix and give gentle IV fluids. Possible overdiuresis. 08/02 creatinine slightly worsened from 1.95-1.97. I will continue IV fluids and consult nephrology. I will increase normal saline to 100 mL per hour. Continue to monitor BUN/creatinine, strict I's and O's and avoid nephrotoxins. (5) Hyperammonemia Plan: Continue Lactulose. Monitor ammonia - trending down and now with a normal level of 32. (6) Hyponatremia Plan: Hypervolemic hyponatremia. Improving and sodium trending up. Continue w fluid restriction and Lasix. 08/01 Sodium trended down to 126 - due to overdiuresis? 08/02 likely hypovolemic hyponatremia, sodium trending up and now 128. Continue to monitor BMP. (7) Hepatitis C Plan: Patient had a hepatitis C antibody reactive positive in April 2016 and has been evaluated by GI at the time. (8) Cirrhosis Plan: Hold Lasix and spironolactone due to rise in creatinine. Discharge Planning Patient still with worsening DEL. Discharge pending clinical improvement of acute kidney injury and continued improvement of hyponatremia. Nephrology consultation pending. Problem Qualifiers (1) CHF (congestive heart failure): Qualified Code: I50.21 - Acute systolic congestive heart failure (2) CAD (coronary artery disease): Qualified Code: I25.10 - Coronary artery disease involving [place] coronary artery of [place] heart without angina pectoris (3) Hepatitis C: (4) Cirrhosis: Qualified Code: K74.60 - Cirrhosis of liver with ascites, unspecified hepatic cirrhosis type Douglas Bhardwaj MD Aug 02, 2016 18:55
[2016-08-02] MEDS: INSULIN DETEMIR 100 UNITS/ML VIAL SQ SCH (21:00)
--- NOTE | 2016-08-02 21:04 | RADRPT ---
EXAM DATE/TIME: 08/02/2016 19:32 [facility] COMPARISON: US LEG BILATERAL VENOUS DOPPLER, May 11, 2016, 23:21. INDICATIONS : Bilateral leg swelling. MEDICAL HISTORY : Hypercholesterolemia. Chronic obstructive pulmonary disease. Deep venous thrombosis. Thyroid disease. Myocardial infarction. Congestive heart failure. Coronary artery disease. Anticoagulant therapy. Hyp erlipidemia. Irregular heartbeat. Hypertension. . Renal failure. Diabetes. Liver disease. De pression. Anxiety. Blood transfusion. SURGICAL HISTORY : Cholecystectomy.Tubal ligation. Coronary artery stent.Internal defibrillator. section. Appen dectomy. ENCOUNTER: Subsequent ACUITY: 2 day PAIN SCORE: 2/10 LOCATION: Bilateral legs. TECHNIQUE: Venous ultrasound of the left and right leg was performed from the inguinal ligament to the proximal calf. Real-time, color Doppler and spectral tracing, compression and augmentation techniques were us ed. FINDINGS: RIGHT LEG: There is normal compressibility of the deep venous system from the inguinal region to the proximal ca lf. No echogenic clot is seen in the lumen of the common femoral, femoral, popliteal, and posterior tibial veins. There is a normal response of the venous system to proximal and distal augmentation an d respiration. LEFT LEG: There is normal compressibility of the deep venous system from the inguinal region to the proximal ca lf. No echogenic clot is seen in the lumen of the common femoral, femoral, popliteal, and posterior tibial veins. There is a normal response of the venous system to proximal and distal augmentation an d respiration. CONCLUSION: The study is negative for deep venous thrombosis bilateral lower extremity. Alan Burton MD on August 02, 2016 at 21:02 Board Certified Radiologist. This report was verified electronically.
[2016-08-02] MEDS: LORazepam 1 MG TAB PO PRN (22:27)
[2016-08-03] VITALS: BP 98/72; PULSE 89; RESP 20; TEMP 96.4; O2SAT 97
[2016-08-03 04:00] VITALS: BP 112/61; PULSE 100; RESP 20; TEMP 96.7; O2SAT 100
[2016-08-03] MEDS: LEVOTHYROXINE SODIUM 50 MCG TAB PO SCH (05:04)
[2016-08-03] MEDS: methylPREDNISolone SOD SUCC 40 MG/1 ML VIAL IV PUSH SCH ×2 (05:04→13:50)
[2016-08-03] MEDS: MIDODRINE 5 MG TAB PO SCH ×3 (06:22→17:47)
[2016-08-03] MEDS: INSULIN ASPART SUPPLEMENTAL SCALE SQ SCH ×4 (06:23→20:43)
[2016-08-03] MEDS: RESP: ALBUTEROL 2.5 MG/IPRATROPIUM 0.5 MG NEB (SCH) NEB ×2 (07:29→12:50)
[2016-08-03 08:00] VITALS: BP 96/59; PULSE 94; RESP 18; TEMP 95.8; O2SAT 93
[2016-08-03] MEDS: GABAPENTIN 300 MG CAP PO SCH ×3 (08:34→17:47)
[2016-08-03] MEDS: PANTOPRAZOLE SOD 40 MG DELAYED RELEASE TAB PO SCH (08:34)
[2016-08-03] MEDS: ASPIRIN 81 MG CHEW TAB CHEW SCH (08:34)
[2016-08-03] MEDS: DOCUSATE SODIUM 50 MG/SENNA 8.6 MG TAB PO SCH ×2 (08:34→20:37)
[2016-08-03] MEDS: LACTULOSE SYRUP 20 GM/30 ML CUP PO SCH (09:00)
[2016-08-03] MEDS: CARVEDILOL 3.125 MG TAB PO SCH ×2 (09:00→20:43)
[2016-08-03] MEDS: SODIUM CHLORIDE 0.9% FLUSH 10 ML FLUSH IV FLUSH SCH ×2 (09:00→20:35)
[2016-08-03 12:00] VITALS: BP 100/70; PULSE 88; RESP 18; TEMP 96.7; O2SAT 97
[2016-08-03 13:30] LABS: MEAN CORPUSCULAR HGB CONC 29.4 % (32.0-36.0)
[2016-08-03] MEDS: oxyCODONE/ACETAMINOPHEN 5 MG/325 MG TAB PO PRN ×2 (13:49→20:37)
[2016-08-03] MEDS: FERROUS SULFATE 325 MG (65 MG ELEMENTAL IRON) TAB PO SCH ×2 (13:49→17:47)
[2016-08-03 15:55] LABS: HEMATOCRIT 33.5 % (35.0-46.0); MEAN CELL VOLUME 79.1 FL (80.0-100.0); MEAN CORPUSCULAR HEMOGLOBIN 23.2 PG (27.0-34.0); PLATELET COUNT 147 TH/MM3 (150-450); RED BLOOD COUNT 4.24 MIL/MM3 (4.00-5.30); RED CELL DISTRIBUTION WIDTH 27.2 % (11.6-17.2); WHITE BLOOD COUNT 17.7 TH/MM3 (4.0-11.0)
[2016-08-03 15:57] LABS: REVIEW FLAG FINAL
[2016-08-03 16:00] VITALS: BP 104/71; PULSE 98; RESP 18; TEMP 95.5; O2SAT 97
[2016-08-03 16:10] LABS: BICARBONATE 22.2 MEQ/L (21.0-32.0); POTASSIUM 4.3 MEQ/L (3.5-5.1)
[2016-08-03] MEDS: FUROSEMIDE 40 MG TAB PO SCH (17:47)
--- NOTE | 2016-08-03 18:49 | HHI.PR ---
Subjective Remarks denies cp/sob good urine output denies fevers or chills creatinine slightly improved Objective Vitals Vital Signs Date Time Temp Pulse Resp B/P Pulse Ox O2 Delivery O2 Flow Rate FiO2 08/03/16 16:00 95.5 98 18 104/71 97 08/03/16 12:00 96.7 88 18 100/70 97 08/03/16 08:00 95.8 94 18 96/59 93 08/03/16 04:00 96.7 100 20 112/61 100 08/03/16 00:00 96.4 89 20 98/72 97 08/02/16 20:43 94 21 08/02/16 20:00 96.6 87 20 95/68 96 I/O 08/02/16 08/02/16 08/02/16 08/03/16 08/03/16 08/03/16 07:00 15:00 23:00 07:00 15:00 23:00 Intake Total 1284 ml 1200 ml 120 ml 480 ml Balance 1284 ml 1200 ml 120 ml 480 ml Intake Oral 1200 ml 120 ml 480 ml IV Total 1284 ml # Voids 1 4 3 # Bowel Movements 0 0 0 Result Diagram: 08/03/16 1514 08/03/16 1514 Imaging Last Impressions Lower Extremity Ultrasound 08/02/16 0000 Signed Impressions: Service Date/Time: Tuesday, August 02, 2016 19:32 - CONCLUSION: The study is negative for deep venous thrombosis bilateral lower extremity. Alan Burton MD Central Venous Line 07/31/16 0000 Signed Impressions: Service Date/Time: Sunday, July 31, 2016 00:00 - CONCLUSION: Uncomplicated Permcath removal. Sandor Perez MD Chest X-Ray 07/30/16 0000 Signed Impressions: Service Date/Time: July 12:07 - CONCLUSION: 1. Stable cardiomegaly without failure. 2. No acute abnormality or significant interval change. Sandor Perez MD Objective Remarks GENERAL: This is a well-nourished, well-developed patient, in no apparent distress. SKIN: No rashes, ecchymoses or lesions. Cool and dry. HEAD: Atraumatic. Normocephalic. No temporal or scalp tenderness. EYES: Pupils equal round and reactive. Extraocular motions intact. No scleral icterus. No injection or drainage. ENT: Nose without bleeding, purulent drainage or septal hematoma. Throat without erythema, tonsillar hypertrophy or exudate. Uvula midline. Airway patent. NECK: Trachea midline. No JVD or lymphadenopathy. Supple, nontender, no meningeal signs. CARDIOVASCULAR: Regular rate and rhythm without murmurs, gallops, or rubs. RESPIRATORY: Diffuse bilateral inspiratory and expiratory wheezing improved from previous day. No rhonchi. Mild crackles at bases bilaterally. GASTROINTESTINAL: Abdomen soft, non-tender, nondistended. No hepato-splenomegaly , or palpable masses. No guarding. MUSCULOSKELETAL: Extremities without clubbing, cyanosis, (+) 1 edema. No joint tenderness, effusion, or edema noted. No calf tenderness. Negative Homans sign bilaterally. NEUROLOGICAL: Awake and alert. Cranial nerves II through XII intact. Motor and sensory grossly within normal limits. Five out of 5 muscle strength in all muscle groups. Normal speech. Procedures none Medications and IVs Current Medications Medications (Trade) Dose Ordered Sig/Digna Route Start Time Stop Time Status Last Admin (NS Flush) 2 ml UNSCH PRN IV FLUSH 07/27/16 14:00 (NS Flush) 2 ml BID IV FLUSH 07/27/16 21:00 08/02/16 22:29 (Tylenol) 650 mg Q4H PRN PO 07/27/16 14:00 (Zofran Inj) 4 mg Q6H PRN IVP 07/27/16 14:00 (Mitzy-Colace) 1 tab BID PO 07/27/16 21:00 08/03/16 08:34 (Milk Of Magnesia Liq) 30 ml Q12H PRN PO 07/27/16 14:00 (Senokot) 17.2 mg Q12H PRN PO 07/27/16 14:00 (Dulcolax Supp) 10 mg DAILY PRN RECTAL 07/27/16 14:00 (Lactulose Liq) 30 ml DAILY PRN PO 07/27/16 14:00 (D50w (Vial) Inj) 50 ml UNSCH PRN IV 07/27/16 14:00 (Glucagon Inj) 1 mg UNSCH PRN OTHER 07/27/16 14:00 (Aspirin Chew) 81 mg DAILY CHEW 07/28/16 09:00 08/03/16 08:34 (Coreg) 3.125 mg Q12HR PO 07/27/16 21:00 08/01/16 21:18 (Lactulose Liq) 30 ml DAILY PO 07/28/16 09:00 07/30/16 09:55 (Synthroid) 50 mcg DAILY@0600 PO 07/28/16 06:00 08/03/16 05:04 (Aldactone) 25 mg DAILY PO 07/28/16 09:00 Hold 08/01/16 08:47 (Ultram) 50 mg Q6H PRN PO 07/27/16 18:00 08/02/16 03:09 (Protonix) 40 mg DAILY PO 07/28/16 09:00 08/03/16 08:34 (Zofran Odt) 4 mg Q6H PRN PO 07/27/16 18:00 (Neurontin) 300 mg TID PO 07/29/16 09:00 08/03/16 13:50 (Mag-Al Plus Susp Liq) 30 ml Q6H PRN PO 07/28/16 19:30 (Proamatine) 10 mg TID@,, PO 07/29/16 12:00 08/03/16 13:50 (Ferrous Sulfate) 325 mg BID@ PO 07/30/16 17:00 08/03/16 13:49 (Robitussin La Pediatric Cough Liq) 7.5 mg Q6H PRN PO 07/31/16 16:15 (SoluMEDROL INJ) 40 mg Q8H IV PUSH 08/01/16 20:00 08/03/16 13:50 (Xanax) 0.25 mg Q8H PRN PO 08/01/16 12:45 08/01/16 22:39 Insulin Detemir 10 units 10 units HS SQ 08/01/16 23:15 08/02/16 21:00 (Levaquin 750 Mg Premix Inj) 150 ml @ 100 mls/hr Q48H IV 08/02/16 19:00 08/02/16 18:12 (Ativan) 1 mg HS PRN PO 08/01/16 23:30 08/02/16 22:27 (Percocet 5-325 Mg) 2 tab Q6H PRN PO 08/02/16 18:30 08/03/16 13:49 (Percocet 5-325 Mg) 1 tab Q4H PRN PO 08/02/16 18:30 (Lasix) 40 mg BID@,18 PO 08/03/16 18:00 Urinary Catheter: No Vascular Central Line Catheter: No A/P Problem List: (1) CHF (congestive heart failure) ICD Code: I50.9 Status: Chronic (2) CAD (coronary artery disease) ICD Code: I25.10 Status: Chronic (3) Type 2 diabetes mellitus with hyperglycemia, with long-term current use of insulin ICD Code: E11.65 Status: Acute (4) Acute kidney injury ICD Code: N17.9 Status: Acute (5) Hyperammonemia ICD Code: E72.20 Status: Acute (6) Hyponatremia ICD Code: E87.1 Status: Acute (7) Hepatitis C ICD Code: B19.20 Status: Chronic (8) Cirrhosis ICD Code: K74.60 Status: Chronic (9) COPD with acute exacerbation ICD Code: J44.1 Status: Acute Plan: Patient is still coughing frequently. Chest pain likely secondary to frequent cough and likely musculoskeletal. EKG reviewed by me and done on shows sinus rhythm at 88 bpm without ischemic changes. Chest x-ray did not show any infiltrates. Q the patient has bilateral expiratory wheezing I will start the patient on IV Solu-Medrol. Will give 125 mg IV now and then we'll continue on 40 mg IV every 6 hours. I will also start the patient IV Levaquin. Will Rx dextromethorphan as needed for cough. Continue DuoNeb's every 6 hours while awake and then every 2 hours as needed for shortness of breath/wheezing. Continue supplemental oxygen. Will order incentive spirometry as well. 08/01 COPD improving but patient still with wheezing. Taper Solumedrol IV to 40 mg Q 8 hrs. Continue O2 to keep o2 sat >92%. Continue duoneb's nebs. Upon review of EMR Levaquin has not been administered and is scheduled for tomorrow. Will change to be given today. 08/02 COPD much improved - with Taper Solu-Medrol to 40 mg IV every 12 hours. Continue IV Levaquin, bronchodilators and supplemental oxygen as above. I will discontinue IV Solu Medrol and start oral prednisone. Continue management as above. (10) Bilateral calf pain ICD Code: M79.661 Status: Acute Plan: Bilateral lower extremity venous Dopplers negative for DVT. Assessment and Plan (1) CHF (congestive heart failure) Plan: Treated with IV lasix or spironolactone Echocardiogram performed on 07/21/16 showed a cavity size which was mildly to moderately dilated with severely reduced systolic function with an EF in 3-15-20 %. Diffuse hypokinesis. Moderate mitral valve regurgitation, moderate tricuspid regurgitation. 07/29 bilateral lower extremity edema almost resolved. I will discontinue IV Lasix and start on oral Lasix. 07/31 CHF much improved continue Lasix. 08/01 Given rise in creatinine will hold lasix and spironolactone. 08/03 continue to hold Lasix and spironolactone. (2) CAD (coronary artery disease) Plan: Continue Aspirin. Cardiology has been consulted on previous admission. (3) Type 2 diabetes mellitus with hyperglycemia, with long-term current use of insulin Plan: SSI with insulin Novolog, monitor accuchecks. Last hemoglobin A1c was 7.4 on 05/14. Diabetes is uncontrolled. 08/01 blood sugars elevated likely due to steroid use. 08/03 patient started on insulin Levemir 10 units subcutaneous at at bedtime. However blood sugar still uncontrolled. We'll increase Levemir to 10 units subcutaneous twice a day. (4) Acute kidney injury Plan: Creatinine continues to trend down. Continue to monitor BUN/creatinine. Slides and O's, avoid nephrotoxins. 08/01 Creatinine increased from 1.2 to 1.9 with worsening DEL. I will hold lasix and give gentle IV fluids. Possible overdiuresis. 08/02 creatinine slightly worsened from 1.95-1.97. I will continue IV fluids and consult nephrology. I will increase normal saline to 100 mL per hour. Continue to monitor BUN/creatinine, strict I's and O's and avoid nephrotoxins. 08/03 creatinine slightly improved down to 1.92. Nephrology consulted and recommendations pending. Continue IV fluids for now. (5) Hyperammonemia Plan: Continue Lactulose. Monitor ammonia - trending down and now with a normal level of 32. (6) Hyponatremia Plan: Hypervolemic hyponatremia. Improving and sodium trending up. Continue w fluid restriction and Lasix. 08/01 Sodium trended down to 126 - due to overdiuresis? likely hypovolemic hyponatremia, sodium trending up and now 129. Continue to monitor BMP. (7) Hepatitis C Plan: Patient had a hepatitis C antibody reactive positive in April 2016 and has been evaluated by GI at the time. (8) Cirrhosis Plan: Hold Lasix and spironolactone due to rise in creatinine. Discharge Planning Discharge pending nephrology clearance. Problem Qualifiers (1) CHF (congestive heart failure): Qualified Code: I50.21 - Acute systolic congestive heart failure (2) CAD (coronary artery disease): Qualified Code: I25.10 - Coronary artery disease involving [place] coronary artery of [place] heart without angina pectoris (3) Hepatitis C: (4) Cirrhosis: Qualified Code: K74.60 - Cirrhosis of liver with ascites, unspecified hepatic cirrhosis type Douglas Bhardwaj MD Aug 03, 2016 18:49
[2016-08-03 20:01] VITALS: BP 109/73; PULSE 94; RESP 18; TEMP 95.6; O2SAT 96
--- NOTE | 2016-08-03 20:14 | MB ---
cc: NIMISHA NAPOLES MD DATE OF CONSULTATION 08/02/2016 REASON FOR CONSULTATION Elevated BUN and creatinine and hyponatremia. HISTORY OF PRESENT ILLNESS This is a 45-year-old female with past medical history of ischemic heart disease, congestive heart failure, chronic kidney disease, hepatitis C, cirrhosis of the liver, chronic obstructive pulmonary disease was admitted because of generalized edema and fluid overload status. I was called to see the patient because of elevated creatinine and low sodium level. Patient has known history of chronic kidney disease with acute kidney injury. She was here last month and her creatinine was as high as 2.2 which was improving in the range of 1.2-1.3 which is probably at baseline. The patient admitted at this time with a creatinine of 2.0 which improved initially and then is going up now again to 1.9. Now it has been in the range of 1.9 and stable. The patient has increased swelling of the legs and has also shortness of breath especially on walking or exertion. She denies any nausea or vomiting. No chest pain. Has also increased swelling of her legs. The patient has been getting diuretics. PAST MEDICAL HISTORY 1. Congestive heart failure. 2. Hepatitis C. 3. Cirrhosis. 4. Chronic kidney disease. 5. Bilateral pulmonary embolism. 6. Chronic obstructive pulmonary disease. 7. Hyperlipidemia. 8. Diabetes mellitus. 9. Hypothyroidism. PAST SURGICAL HISTORY 1. Tubal ligation. 2. Cholecystectomy. 3. AICD placement. 4. Cardiac stent. 5. REVIEW OF SYSTEMS The patient has generalized edema. Has shortness of breath increased with exertion. Denies any nausea or vomiting. No chest pain. No history of fever. No abdominal pain. Has increased swelling of her legs. SOCIAL HISTORY The patient has past history of smoking. Smoked for almost 30 years. There is no history of heavy alcoholism. FAMILY HISTORY Positive for heart disease from the father's side and mother had leukemia. ALLERGIES She has no known drug allergies. MEDICATIONS Currently she is on following medications 1. Normal saline 100 an hour.. 2. Mitzy-Colace. 1 tablet b.i.d. 3. Ferrous sulfate 325 mg b.i.d. 4. Aspirin 81 milligrams once a day. 5. Lactulose 30 ml daily. 6. Protonix 40 mg daily. 7. Synthroid 50 mcg daily. 8. Levemir 10 units q.h.s. 9. Coreg 3.125 milligrams q.12h. 10. Levaquin 750 milligrams IV q.48h. 11. Methyl prednisolone 40 mg q.8 h. 12. Insulin aspart sliding scale. 13. Gabapentin 300 milligrams three times a day. 14. Midodrine 10 milligrams three times a day. 15. Zofran as needed. 16. Dulcolax as needed. 17. Ativan as needed. 18. Xanax as needed. 19. Percocet as needed. PHYSICAL EXAMINATION GENERAL: On examination the patient is awake, alert. She is not in acute distress. VITAL SIGNS: Her last blood pressure 100/70, temperature is 96.7, oxygen saturation 93-97%. Her blood pressure has been the lower side and the lowest recorded reading in the last few days was 83/53. HEENT: Pupils equally reacting to light. Icteric sclera. Conjunctiva pale. NECK: Supple. JVD is slightly elevated. LUNGS: The patient has bilateral decreased air entry with basilar rales. HEART: S1-S2. Regular rhythm. ABDOMEN: Distended, soft. Lax. There is no tenderness. Bowel sounds positive. EXTREMITIES: She has bilateral 3+ edema. LABORATORY DATA Investigations, WBC count 17.7, hemoglobin 9.8, platelet count 147. Sodium 129, potassium 4.3, chloride 96, bicarb 22.2, BUN 44, creatinine 1.9. Glucose 212. Calcium 8.3, total protein is 6.3 with albumin of 2.3. AST and ALT normal. 20. Total bilirubin is 2.3. INR is 2.2. Urinalysis showing there is no proteinuria and some of them have minimal proteinuria. IMAGING STUDIES The patient had ultrasound of the legs done which is negative for deep vein thrombosis. Chest x-ray was done which shows cardiomegaly. ASSESSMENT/PLAN 1. Chronic kidney disease with acute kidney injury. 2. Hyponatremia. 3. Congestive heart failure. 4. Diabetes mellitus. 5. Hepatitis C with cirrhosis. 6. Chronic obstructive pulmonary disease. 7. Anemia. The patient has generalized edema and anasarca. She needs to be diuresed. Her creatinine has gone up and the Lasix was on hold but she is having more edema in the legs. I will DC the IV fluids and start her with oral Lasix. Her blood pressure on the lower side and this can be contributing also to the increase in the creatinine because of decreased renal perfusion. The patient was seen by Dr. Villaseñor when she was here last month, so I will ask him to follow the patient. Thank you for the consultation. MD VALENTÍN Franks/JAYLAN /4:18 PM /7:57 PM
[2016-08-03] MEDS: predniSONE 20 MG TAB PO SCH (20:37)
[2016-08-03] MEDS: INSULIN DETEMIR 100 UNITS/ML VIAL SQ SCH (20:41)
[2016-08-03 21:13] LABS: MEAN CORPUSCULAR HGB CONC 29.4 % (32.0-36.0)
[2016-08-03] MEDS: LORazepam 1 MG TAB PO PRN (22:50)
[2016-08-04] VITALS (9 sets, daily range): BP systolic 95–112; BP diastolic 56–95; PULSE 88–106; RESP 17–21; TEMP 95.1–98; O2SAT 90–100
[2016-08-04] MEDS: oxyCODONE/ACETAMINOPHEN 5 MG/325 MG TAB PO PRN ×4 (02:32→23:59)
[2016-08-04] MEDS: MIDODRINE 5 MG TAB PO SCH ×3 (06:05→16:25)
[2016-08-04] MEDS: LEVOTHYROXINE SODIUM 50 MCG TAB PO SCH (06:06)
[2016-08-04] MEDS: INSULIN ASPART SUPPLEMENTAL SCALE SQ SCH ×5 (06:07→21:27)
[2016-08-04 07:09] LABS: AUTOMATED NEUTROPHIL # 16.6 TH/MM3 (1.8-7.7); BASOPHIL % 0.3 % (0.0-2.0); HEMATOCRIT 34.6 % (35.0-46.0); LYMPHOCYTE # 0.3 TH/MM3 (1.0-4.8); MEAN CELL VOLUME 79.5 FL (80.0-100.0); MEAN CORPUSCULAR HEMOGLOBIN 23.4 PG (27.0-34.0); MONO % 1.8 % (0.0-8.0); NEUT % 95.9 % (16.0-70.0); PLATELET COUNT 125 TH/MM3 (150-450); RED BLOOD COUNT 4.36 MIL/MM3 (4.00-5.30); RED CELL DISTRIBUTION WIDTH 26.8 % (11.6-17.2); WHITE BLOOD COUNT 17.3 TH/MM3 (4.0-11.0)
[2016-08-04 07:16] LABS: HEMO FLAGS AUTO DIFF
[2016-08-04 07:22] LABS: ALT (GPT) 21 U/L (10-53); ANION GAP 9 MEQ/L (5-15); AST (GOT) 24 U/L (15-37); BICARBONATE 24.7 MEQ/L (21.0-32.0); BLOOD UREA NITROGEN 44 MG/DL (7-18); CHLORIDE 98 MEQ/L (98-107); GLOMERULAR FILTRATION RATE 27 ML/MIN (>89); POTASSIUM 4.6 MEQ/L (3.5-5.1); SODIUM (NA) 132 MEQ/L (136-145)
[2016-08-04 07:24] LABS: ALKALINE PHOSPHATASE 85 U/L (45-117)
[2016-08-04] MEDS: CARVEDILOL 3.125 MG TAB PO SCH ×2 (08:42→21:25)
[2016-08-04] MEDS: GABAPENTIN 300 MG CAP PO SCH ×3 (08:51→16:26)
[2016-08-04] MEDS: LEVOFLOXACIN 250 MG TAB PO SCH (08:51)
[2016-08-04] MEDS: ASPIRIN 81 MG CHEW TAB CHEW SCH (08:51)
[2016-08-04] MEDS: DOCUSATE SODIUM 50 MG/SENNA 8.6 MG TAB PO SCH ×2 (08:51→21:25)
[2016-08-04] MEDS: FUROSEMIDE 40 MG TAB PO SCH (08:51)
[2016-08-04] MEDS: predniSONE 20 MG TAB PO SCH (08:51)
[2016-08-04] MEDS: PANTOPRAZOLE SOD 40 MG DELAYED RELEASE TAB PO SCH (08:51)
[2016-08-04] MEDS: LACTULOSE SYRUP 20 GM/30 ML CUP PO SCH (08:52)
[2016-08-04] MEDS: SODIUM CHLORIDE 0.9% FLUSH 10 ML FLUSH IV FLUSH SCH ×2 (08:52→21:24)
[2016-08-04] MEDS: INSULIN DETEMIR 100 UNITS/ML VIAL SQ SCH ×2 (08:59→21:26)
[2016-08-04 09:01] LABS: PLATELET ESTIMATE SMEAR LOW (NORMAL); PLATELET MORPHOLOGY NORMAL (NORMAL); SCAN/DIFF AUTO DIFF CONFIRMED
--- NOTE | 2016-08-04 10:29 | PD.PN.STU ---
Subjective Remarks Patient states she is feeling better. She complains of bilateral lower extremity pain in her calves when she starts walking. Bilateral Doppler u/s was negative for DVT, 08/02. Her legs are still swollen. Cough and chest pain improved. No other acute changes overnight. Objective Vitals Vital Signs Date Time Temp Pulse Resp B/P Pulse Ox O2 Delivery O2 Flow Rate FiO2 08/04/16 08:15 95.5 96 17 100/69 94 08/04/16 04:32 96.1 88 20 95/56 93 08/04/16 03:43 20 08/04/16 00:13 95.9 88 20 96/64 96 08/03/16 20:01 95.6 94 18 109/73 96 08/03/16 16:00 95.5 98 18 104/71 97 08/03/16 12:00 96.7 88 18 100/70 97 I/O 08/03/16 08/03/16 08/03/16 08/04/16 08/04/16 08/04/16 07:00 15:00 23:00 07:00 15:00 23:00 Intake Total 120 ml 480 ml 1040 ml Balance 120 ml 480 ml 1040 ml Intake Oral 120 ml 480 ml 240 ml IV Total 800 ml # Voids 4 3 3 # Bowel Movements 0 0 1 Result Diagram: 08/04/16 0647 08/04/16 0647 Objective Remarks GENERAL: This is a well-nourished, well-developed patient, in no apparent distress. NECK: Trachea midline. No JVD or lymphadenopathy. Supple, nontender, no meningeal signs. CARDIOVASCULAR: Regular rate and rhythm without murmurs, gallops, or rubs. Peripheral pulses 2+. Bilateral lower extremity edema 1+ RESPIRATORY: Bilateral lower lobe crackles and quiet wheezing auscultated. GASTROINTESTINAL: Abdomen soft, non-tender, nondistended. No hepato-splenomegaly , or palpable masses. No guarding. A/P Assessment and Plan 1. Acute on Chronic CHF: - Volume overload - Pedal pitting edema still 1+ but improving - Hyponatremia- sodium 132. - patient is stable 2. COPD exacerbation - new onset productive cough- improved - CXR on 07/30 negative for infiltrates - Symptoms improved with IV methylprednisolone and oral prednisone and IV levofloxacin. - Tapered steroids, stop antibiotics. 3. Acute Kidney injury - Cr increased for patient normal - consulted nephrology, resumed Lasix and stopped IV fluids. Low blood pressure may be contributing to DEL. Cr today 1.98 4. Musculoskeletal chest pain: - associated with cough and movement only. Localized to sternum. - improved from yesterday - EKG on 07/30 showed normal sinus rhythm with PVCs. - 08/04- resolved 5. CAD - Continue Aspirin. Bhavna Gonzalez M3 Aug 04, 2016 10:29
[2016-08-04] MEDS: FERROUS SULFATE 325 MG (65 MG ELEMENTAL IRON) TAB PO SCH ×2 (12:00→16:25)
--- NOTE | 2016-08-04 12:04 | HHI.NPPN ---
Subjective General Problems: Edema, Heart Disease, Hypotension Renal Failure: Chronic, Acute Interval History Renal function slightly worse. She is still volume overloaded. (Leah Kirkpatrick) Review of Systems Respiratory Lungs: SOB (Leah Kirkpatrick) Cardiovascular Cardiac: Edema (Leah Kirkpatrick) Objective Data Data 08/03/16 08/04/16 19:00 07:00 Intake Total 480 ml 1040 ml Balance 480 ml 1040 ml Intake Oral 480 ml 240 ml IV Total 800 ml # Voids 3 3 # Bowel Movements 0 1 Vital Signs Date Time Temp Pulse Resp B/P Pulse Ox O2 Delivery O2 Flow Rate FiO2 08/04/16 11:18 97 18 100/77 95 08/04/16 08:15 95.5 96 17 100/69 94 08/04/16 04:32 96.1 88 20 95/56 93 08/04/16 03:43 20 08/04/16 00:13 95.9 88 20 96/64 96 08/03/16 20:01 95.6 94 18 109/73 96 08/03/16 16:00 95.5 98 18 104/71 97 08/03/16 12:00 96.7 88 18 100/70 97 (Leah Kirkpatrick) -: 08/04/16 0647 08/04/16 0647 Imaging Last 72 hours Impressions Lower Extremity Ultrasound 08/02/16 0000 Signed Impressions: Service Date/Time: Tuesday, August 02, 2016 19:32 - CONCLUSION: The study is negative for deep venous thrombosis bilateral lower extremity. Alan Burton MD (Leah Kirkpatrick) Physical Exam General Appearance: Well Developed, Well Nourished, Comfortable (Leah Kirkpatrick) Eyes Eye Exam: Pupils Equal (Leah Kirkpatrick) Throat Throat Exam: Oral Mucosa [place] & Moist (Leah Kirkpatrick) Pulmonary Resp Exam: Breath Sounds Equal, Crackles (Leah Kirkpatrick) Cardiology CV Exam: Regular, Normal Sinus Rhythm, Murmur (Leah Kirkpatrick) Gastrointestinal/Abdomen GI Exam: Soft, Non-Tender, Bowel Sounds Present (Leah Kirkpatrick) Musculoskeletal MS Exam: Joints Intact, Normal Tone (Leah Kirkpatrick) Integumentary Skin Exam: Clear, Warm, Dry, Intact (Leah Kirkpatrick) Extremeties Extremities Exam: Pedal Pulses Palpable, Pitting Edema, Dependent Edema ( Leah Kirkpatrick) Neurologic Neuro Exam: Alert, Awake, Oriented, Speech Clear, Moving All Extremities ( Leah Kirkpatrick) Assessment/Plan Discussed Condition With: Patient Assessment Summary: DEL/Acute Renal Failure, Hypotension Problem List: (1) Acute kidney injury Plan: on CKD, with baseline creatinine 1.2-1.3 from last month DEL due to renal hypoperfusion from decompensated heart failure and hypotension renal function is slightly worse but overall stable continue midodrine TID, avoid hypotension continue diuresis as below she is making urine daily renal panel avoid IVF, nephrotoxic agents (2) Hyponatremia Plan: hypervolemic continue diuresis and fluid restriction (3) Fluid overload Plan: due to advanced and decompensated heart failure, needs diuresis. EF 15-20% give a dose of metolazone now change lasix to bumex IV beginning tonight ED delgado ordered (Leah Kirkpatrick) Plan patient was seen and examined. Agree with above assessment and plan. (Jevon Villaseñor MD) Leah Kirkpatrick Aug 04, 2016 12:04 Jevon Villaseñor MD Aug 04, 2016 15:09
[2016-08-04] MEDS ORDERED: METOLAZONE 5 MG TAB PO ONE (12:15)
[2016-08-04] MEDS ORDERED: PILL SPLITTER OTHER PRN (16:00)
[2016-08-04] MEDS: BUMETANIDE INJ 1 MG/4 ML VIAL IV PUSH SCH (16:26)
--- NOTE | 2016-08-04 22:39 | HHI.PR ---
Subjective Remarks Deferred entry - patient seen at 3:20 PM as per RN patient fell today, she denies hitting her head Fell over buttocks and was c/o pain denies cp/sob Patient slighly tachycardic Objective Vitals Vital Signs Date Time Temp Pulse Resp B/P Pulse Ox O2 Delivery O2 Flow Rate FiO2 08/04/16 20:30 98.0 106 21 112/95 90 08/04/16 15:45 95.6 96 18 103/74 96 08/04/16 14:40 95.6 93 18 105/75 96 08/04/16 12:00 95.1 96 18 110/66 100 08/04/16 11:18 97 18 100/77 95 08/04/16 08:15 95.5 96 17 100/69 94 08/04/16 04:32 96.1 88 20 95/56 93 08/04/16 03:43 20 08/04/16 00:13 95.9 88 20 96/64 96 I/O 08/03/16 08/03/16 08/03/16 08/04/16 08/04/16 08/04/16 07:00 15:00 23:00 07:00 15:00 23:00 Intake Total 120 ml 480 ml 1040 ml 360 ml Balance 120 ml 480 ml 1040 ml 360 ml Intake Oral 120 ml 480 ml 240 ml 360 ml IV Total 800 ml # Voids 4 3 3 4 # Bowel Movements 0 0 1 1 Result Diagram: 08/04/16 0647 08/04/16 0647 Imaging Last Impressions Lower Extremity Ultrasound 08/02/16 0000 Signed Impressions: Service Date/Time: Tuesday, August 02, 2016 19:32 - CONCLUSION: The study is negative for deep venous thrombosis bilateral lower extremity. Alan Burton MD Central Venous Line 07/31/16 0000 Signed Impressions: Service Date/Time: Sunday, July 31, 2016 00:00 - CONCLUSION: Uncomplicated Permcath removal. Sandor Perez MD Chest X-Ray 07/30/16 0000 Signed Impressions: Service Date/Time: July 12:07 - CONCLUSION: 1. Stable cardiomegaly without failure. 2. No acute abnormality or significant interval change. Sandor Perez MD Objective Remarks GENERAL: This is a well-nourished, well-developed patient, in no apparent distress. SKIN: No rashes, ecchymoses or lesions. Cool and dry. HEAD: Atraumatic. Normocephalic. No temporal or scalp tenderness. EYES: Pupils equal round and reactive. Extraocular motions intact. No scleral icterus. No injection or drainage. ENT: Nose without bleeding, purulent drainage or septal hematoma. Throat without erythema, tonsillar hypertrophy or exudate. Uvula midline. Airway patent. NECK: Trachea midline. No JVD or lymphadenopathy. Supple, nontender, no meningeal signs. CARDIOVASCULAR: Regular rate and rhythm without murmurs, gallops, or rubs. RESPIRATORY: Diffuse bilateral inspiratory and expiratory wheezing improved from previous day. No rhonchi. Mild crackles at bases bilaterally. GASTROINTESTINAL: Abdomen soft, non-tender, nondistended. No hepato-splenomegaly , or palpable masses. No guarding. MUSCULOSKELETAL: Extremities without clubbing, cyanosis, (+) 1 edema. No joint tenderness, effusion, or edema noted. No calf tenderness. Negative Homans sign bilaterally. NEUROLOGICAL: Awake and alert. Cranial nerves II through XII intact. Motor and sensory grossly within normal limits. Five out of 5 muscle strength in all muscle groups. Normal speech. Procedures none Medications and IVs Current Medications Medications (Trade) Dose Ordered Sig/Digna Route Start Time Stop Time Status Last Admin (NS Flush) 2 ml UNSCH PRN IV FLUSH 07/27/16 14:00 (NS Flush) 2 ml BID IV FLUSH 07/27/16 21:00 08/04/16 21:24 (Tylenol) 650 mg Q4H PRN PO 07/27/16 14:00 (Zofran Inj) 4 mg Q6H PRN IVP 07/27/16 14:00 (Mitzy-Colace) 1 tab BID PO 07/27/16 21:00 08/04/16 21:25 (Milk Of Magnesia Liq) 30 ml Q12H PRN PO 07/27/16 14:00 (Senokot) 17.2 mg Q12H PRN PO 07/27/16 14:00 (Dulcolax Supp) 10 mg DAILY PRN RECTAL 07/27/16 14:00 (Lactulose Liq) 30 ml DAILY PRN PO 07/27/16 14:00 (D50w (Vial) Inj) 50 ml UNSCH PRN IV 07/27/16 14:00 (Glucagon Inj) 1 mg UNSCH PRN OTHER 07/27/16 14:00 (Aspirin Chew) 81 mg DAILY CHEW 07/28/16 09:00 08/04/16 08:51 (Coreg) 3.125 mg Q12HR PO 07/27/16 21:00 08/04/16 21:25 (Lactulose Liq) 30 ml DAILY PO 07/28/16 09:00 07/30/16 09:55 (Synthroid) 50 mcg DAILY@0600 PO 07/28/16 06:00 08/04/16 06:06 (Aldactone) 25 mg DAILY PO 07/28/16 09:00 Hold 08/01/16 08:47 (Ultram) 50 mg Q6H PRN PO 07/27/16 18:00 08/02/16 03:09 (Protonix) 40 mg DAILY PO 07/28/16 09:00 08/04/16 08:51 (Zofran Odt) 4 mg Q6H PRN PO 07/27/16 18:00 (Neurontin) 300 mg TID PO 07/29/16 09:00 08/04/16 16:26 (Mag-Al Plus Susp Liq) 30 ml Q6H PRN PO 07/28/16 19:30 (Proamatine) 10 mg TID@,, PO 07/29/16 12:00 08/04/16 16:25 (Ferrous Sulfate) 325 mg BID@ PO 07/30/16 17:00 08/04/16 16:25 (Robitussin La Pediatric Cough Liq) 7.5 mg Q6H PRN PO 07/31/16 16:15 (Xanax) 0.25 mg Q8H PRN PO 08/01/16 12:45 08/01/16 22:39 (Ativan) 1 mg HS PRN PO 08/01/16 23:30 08/03/16 22:50 (Percocet 5-325 Mg) 2 tab Q6H PRN PO 08/02/16 18:30 08/04/16 16:26 (Percocet 5-325 Mg) 1 tab Q4H PRN PO 08/02/16 18:30 (Levemir Inj) 10 units BID SQ 08/03/16 21:00 08/04/16 21:26 (Levaquin) 250 mg DAILY PO 08/04/16 09:00 08/04/16 08:51 (Bumex Inj) 2 mg BID@,18 IV PUSH 08/04/16 18:00 08/04/16 16:26 (Deltasone) 30 mg DAILY PO 08/05/16 09:00 (Pill Splitter) 1 ea UNSCH PRN OTHER 08/04/16 16:00 Urinary Catheter: No Vascular Central Line Catheter: No A/P Problem List: (1) CHF (congestive heart failure) ICD Code: I50.9 Status: Chronic (2) CAD (coronary artery disease) ICD Code: I25.10 Status: Chronic (3) Type 2 diabetes mellitus with hyperglycemia, with long-term current use of insulin ICD Code: E11.65 Status: Acute (4) Acute kidney injury ICD Code: N17.9 Status: Acute (5) Hyperammonemia ICD Code: E72.20 Status: Acute (6) Hyponatremia ICD Code: E87.1 Status: Acute (7) Hepatitis C ICD Code: B19.20 Status: Chronic (8) Cirrhosis ICD Code: K74.60 Status: Chronic (9) COPD with acute exacerbation ICD Code: J44.1 Status: Resolved Plan: Patient is still coughing frequently. Chest pain likely secondary to frequent cough and likely musculoskeletal. EKG reviewed by me and done on shows sinus rhythm at 88 bpm without ischemic changes. Chest x-ray did not show any infiltrates. Q the patient has bilateral expiratory wheezing I will start the patient on IV Solu-Medrol. Will give 125 mg IV now and then we'll continue on 40 mg IV every 6 hours. I will also start the patient IV Levaquin. Will Rx dextromethorphan as needed for cough. Continue DuoNeb's every 6 hours while awake and then every 2 hours as needed for shortness of breath/wheezing. Continue supplemental oxygen. Will order incentive spirometry as well. 08/01 COPD improving but patient still with wheezing. Taper Solumedrol IV to 40 mg Q 8 hrs. Continue O2 to keep o2 sat >92%. Continue duoneb's nebs. Upon review of EMR Levaquin has not been administered and is scheduled for tomorrow. Will change to be given today. 08/02 COPD much improved - with Taper Solu-Medrol to 40 mg IV every 12 hours. Continue IV Levaquin, bronchodilators and supplemental oxygen as above. 08/03 I will discontinue IV Solu Medrol and start oral prednisone. Continue management as above. 08/04 Decrease prednisone dose down to 30 mg po daily. (10) Bilateral calf pain ICD Code: M79.661 Status: Resolved Plan: Bilateral lower extremity venous Dopplers negative for DVT. (11) Blurry vision, bilateral ICD Code: H53.8 Status: Acute Plan: Possibly secondary to elevated blood sugars. Will onitor if still present when sugars improved then will consult ophtalmology. (12) Fall ICD Code: W19.XXXA Status: Acute Plan: Patient fell today on her butocks as per RN patient is c/o pain in hip. Will check a pelvis x ray. Assessment and Plan (1) Acute on Chronic systolic heart failure. Plan: Treated with IV lasix or spironolactone Echocardiogram performed on 07/21/16 showed a cavity size which was mildly to moderately dilated with severely reduced systolic function with an EF in 3-15-20 %. Diffuse hypokinesis. Moderate mitral valve regurgitation, moderate tricuspid regurgitation. Diuretics held due to rise in creatinine. 08/04 Nephrology consulted. Appreciate recommendations. Patient restarted on Lasix and will be switched to Bumex. (2) CAD (coronary artery disease) Plan: Continue Aspirin. Cardiology has been consulted on previous admission. (3) Type 2 diabetes mellitus with hyperglycemia, with long-term current use of insulin Plan: SSI with insulin Novolog, monitor accuchecks. Last hemoglobin A1c was 7.4 on 05/14. Diabetes is uncontrolled. 08/01 blood sugars elevated likely due to steroid use. 08/03 patient started on insulin Levemir 10 units subcutaneous at at bedtime. However blood sugar still uncontrolled. We'll increase Levemir to 10 units subcutaneous twice a day. 08/04 Patient has been refusing her insulin reinforced importance of compliance. (4) Acute kidney injury Plan: Creatinine continues to trend down. Continue to monitor BUN/creatinine. Slides and O's, avoid nephrotoxins. 08/01 Creatinine increased from 1.2 to 1.9 with worsening DEL. I will hold lasix and give gentle IV fluids. Possible overdiuresis. 08/02 creatinine slightly worsened from 1.95-1.97. I will continue IV fluids and consult nephrology. I will increase normal saline to 100 mL per hour. Continue to monitor BUN/creatinine, strict I's and O's and avoid nephrotoxins. 08/04 appreciate nephrology recommendations. Diuretics resumed. Fu nephrology recommendations. (5) Hyperammonemia Plan: Continue Lactulose. Monitor ammonia - trending down and now with a normal level of 32. (6) Hyponatremia Plan: Hypervolemic hyponatremia. Improving and sodium trending up. Continue w fluid restriction and Lasix. 08/01 Sodium trended down to 126 - due to overdiuresis? likely hypovolemic hyponatremia, sodium trending up and now 132. Continue to monitor BMP. (7) Hepatitis C Plan: Patient had a hepatitis C antibody reactive positive in April 2016 and has been evaluated by GI at the time. (8) Cirrhosis Plan: Continue diuretics. Discharge Planning Discharge pending nephrology clearance. Problem Qualifiers (1) CHF (congestive heart failure): Qualified Code: I50.21 - Acute systolic congestive heart failure (2) CAD (coronary artery disease): Qualified Code: I25.10 - Coronary artery disease involving [place] coronary artery of [place] heart without angina pectoris (3) Hepatitis C: (4) Cirrhosis: Qualified Code: K74.60 - Cirrhosis of liver with ascites, unspecified hepatic cirrhosis type (5) Fall: Qualified Code: W19.XXXA - Fall, initial encounter Douglas Bhardwaj MD Aug 04, 2016 22:39
[2016-08-04] MEDS: LORazepam 1 MG TAB PO PRN (23:59)
[2016-08-05] VITALS: BP 115/65; PULSE 102; RESP 18; TEMP 97.6; O2SAT 95
[2016-08-05 04:00] VITALS: BP 114/79; PULSE 108; RESP 19; TEMP 97.3; O2SAT 95
--- NOTE | 2016-08-05 05:30 | RADRPT ---
EXAM DATE/TIME: 08/05/2016 04:17 [facility] COMPARISON: No previous studies available for comparison. INDICATIONS : Pelvic pain. MEDICAL HISTORY : Hypercholesterolemia. Chronic obstructive pulmonary disease. Deep venous thrombosis. Thyroid dise ase. Myocardial infarction. Congestive heart failure, Hyperlipidemia. Irregular heartbeat. Hypertensi on, CAD,Renal failure. Diabetes. Liver disease. Depression. Anxiety. Blood transfusion SURGICAL HISTORY : Cholecystectomy. Tubal ligation. Coronary artery stent. section. Appendectomy, Defibrillator ENCOUNTER: Initial ACUITY: 1 day PAIN SCORE: 7/10 LOCATION: Bilateral pelvis FINDINGS: No definite fractures, or dislocations are identified. No definite lytic or sclerotic lesion is seen . The joint spaces are well maintained. CONCLUSION: Unremarkable study. Julius Luna MD on August 05, 2016 at 5:28 Board Certified Radiologist. This report was verified electronically.
[2016-08-05] MEDS: MIDODRINE 5 MG TAB PO SCH ×3 (05:34→16:03)
[2016-08-05] MEDS: LEVOTHYROXINE SODIUM 50 MCG TAB PO SCH (05:35)
[2016-08-05] MEDS: INSULIN ASPART SUPPLEMENTAL SCALE SQ SCH ×4 (05:35→21:00)
[2016-08-05 08:00] VITALS: BP 116/75; PULSE 114; RESP 20; TEMP 96.4; O2SAT 93
[2016-08-05] MEDS: BUMETANIDE INJ 1 MG/4 ML VIAL IV PUSH SCH ×2 (08:16→17:35)
[2016-08-05] MEDS: INSULIN DETEMIR 100 UNITS/ML VIAL SQ SCH ×2 (08:17→21:00)
[2016-08-05] MEDS: GABAPENTIN 300 MG CAP PO SCH ×3 (08:17→17:35)
[2016-08-05] MEDS: ASPIRIN 81 MG CHEW TAB CHEW SCH (08:17)
[2016-08-05] MEDS: LACTULOSE SYRUP 20 GM/30 ML CUP PO SCH (08:17)
[2016-08-05] MEDS: PANTOPRAZOLE SOD 40 MG DELAYED RELEASE TAB PO SCH (08:17)
[2016-08-05] MEDS: LEVOFLOXACIN 250 MG TAB PO SCH (08:17)
[2016-08-05] MEDS: SODIUM CHLORIDE 0.9% FLUSH 10 ML FLUSH IV FLUSH SCH ×2 (08:17→21:02)
[2016-08-05] MEDS: predniSONE 20 MG TAB PO SCH (08:17)
[2016-08-05] MEDS: CARVEDILOL 3.125 MG TAB PO SCH ×2 (08:17→21:00)
[2016-08-05] MEDS: DOCUSATE SODIUM 50 MG/SENNA 8.6 MG TAB PO SCH ×2 (08:17→21:01)
[2016-08-05 08:46] LABS: AUTOMATED NEUTROPHIL # 8.3 TH/MM3 (1.8-7.7); BASOPHIL % 0.1 % (0.0-2.0); EOSINOPHIL # 0.1 TH/MM3 (0-0.4); EOSINOPHIL % 0.8 % (0.0-4.0); HEMATOCRIT 40.2 % (35.0-46.0); LYMPH % 5.8 % (9.0-44.0); LYMPHOCYTE # 0.5 TH/MM3 (1.0-4.8); MEAN CELL VOLUME 79.4 FL (80.0-100.0); MEAN CORPUSCULAR HEMOGLOBIN 23.8 PG (27.0-34.0); MONO % 2.5 % (0.0-8.0); NEUT % 90.8 % (16.0-70.0); PLATELET COUNT 126 TH/MM3 (150-450); RED BLOOD COUNT 5.07 MIL/MM3 (4.00-5.30); WHITE BLOOD COUNT 9.1 TH/MM3 (4.0-11.0)
[2016-08-05 08:50] LABS: HEMO FLAGS AUTO DIFF
[2016-08-05 09:08] LABS: ANION GAP 15 MEQ/L (5-15); AST (GOT) 25 U/L (15-37); BICARBONATE 21.5 MEQ/L (21.0-32.0); BLOOD UREA NITROGEN 45 MG/DL (7-18); CHLORIDE 92 MEQ/L (98-107); GLOMERULAR FILTRATION RATE 30 ML/MIN (>89); POTASSIUM 3.9 MEQ/L (3.5-5.1); SODIUM (NA) 128 MEQ/L (136-145)
[2016-08-05 09:12] LABS: ALKALINE PHOSPHATASE 86 U/L (45-117); ALT (GPT) 20 U/L (10-53); TOTAL BILIRUBIN ADULT 2.3 MG/DL (0.2-1.0)
[2016-08-05 09:21] LABS: BANDS 16 % (0-6); CORRECTED NUCLEATED RBC 4 /100 WBC (0-0); METAMYELOCYTES 2 % (0-1); MYELOCYTES 1 % (0-0); NEUTROPHIL # MANUAL DIFF 8.3 TH/MM3 (1.8-7.7); POLYS (SEG NEUTROPHILS) 72 % (16-70); WBC DIFF SAMPLE 100
[2016-08-05 09:23] LABS: ACANTHOCYTES OCC (NORMAL); PLATELET ESTIMATE SMEAR LOW (NORMAL); PLATELET MORPHOLOGY NORMAL (NORMAL); TOXIC GRANULATION 1+ (NORMAL); TOXIC VACUOLATION PRESENT (NONE SEEN)
[2016-08-05 09:24] LABS: SCAN/DIFF FINAL DIFF MANUAL
--- NOTE | 2016-08-05 09:34 | HHI.NPPN ---
Subjective General Problems: Edema, Heart Disease, Hypotension Renal Failure: Chronic, Acute Interval History She fell overnight complaining of L hip and shoulder pain. Edema persists. Creatinine is better. (Leah Kirkpatrick) Review of Systems Respiratory Lungs: SOB (Leah Kirkpatrick) Cardiovascular Cardiac: Edema (Leah Kirkpatrick) Musculoskeletal MS: Pain/Stiffness (Leah Kirkpatrick) Objective Data Data 08/04/16 08/05/16 19:00 07:00 Intake Total 360 ml 1040 ml Balance 360 ml 1040 ml Intake Oral 360 ml 1040 ml # Voids 4 3 # Bowel Movements 1 0 Vital Signs Date Time Temp Pulse Resp B/P Pulse Ox O2 Delivery O2 Flow Rate FiO2 08/05/16 08:00 96.4 114 20 116/75 93 08/05/16 04:00 97.3 108 19 114/79 95 08/05/16 01:05 16 08/05/16 00:00 97.6 102 18 115/65 95 08/04/16 23:59 100 18 112/77 08/04/16 20:30 98.0 106 21 112/95 90 08/04/16 15:45 95.6 96 18 103/74 96 08/04/16 14:40 95.6 93 18 105/75 96 08/04/16 12:00 95.1 96 18 110/66 100 08/04/16 11:18 97 18 100/77 95 (Leah Kirkpatrick) -: 08/05/16 0741 08/05/16 0741 Imaging Last 72 hours Impressions Pelvis X-Ray 08/04/16 0000 Signed Impressions: Service Date/Time: Friday, August 05, 2016 04:17 - CONCLUSION: Unremarkable study. Julius Luna MD (Leah Kirkpatrick) Physical Exam General Appearance: Well Developed, No Acute Distress, Comfortable, Painful, Malnourished (Leah Kirkpatrick) Eyes Eye Exam: Pupils Equal (Leah Kirkpatrick) Throat Throat Exam: Oral Mucosa [place] & Moist (Leah Kirkpatrick) Pulmonary Resp Exam: Breath Sounds Equal, Crackles (Leah Kirkpatrick) Cardiology CV Exam: Regular, Normal Sinus Rhythm, Murmur CV Remarks AICD left chest (Leah Kirkpatrick) Gastrointestinal/Abdomen GI Exam: Soft, Non-Tender, Bowel Sounds Present (Leah Kirkpatrick) Musculoskeletal MS Exam: Joints Intact, Normal Tone (Leah Kirkpatrick) Integumentary Skin Exam: Clear, Warm, Dry, Intact (Leah Kirkpatrick) Extremeties Extremities Exam: Pedal Pulses Palpable, Pitting Edema, Dependent Edema ( Leah Kirkpatrick) Neurologic Neuro Exam: Alert, Awake, Oriented, Speech Clear, Moving All Extremities ( Leah Kirkpatrick) Psychiatric Psych Exam: Appropriate Responses (Leah Kirkpatrick) Assessment/Plan Discussed Condition With: Patient Assessment Summary: DEL/Acute Renal Failure, Fluid/Volume Overload, CHF Problem List: (1) Acute kidney injury Plan: on CKD, with baseline creatinine 1.2-1.3 from last month DEL due to renal hypoperfusion from decompensated heart failure and hypotension renal function is slightly better continue midodrine TID, avoid hypotension continue diuresis as below she is making urine but output is not documented daily renal panel avoid IVF, nephrotoxic agents (2) Hyponatremia Plan: worse today, she is hypervolemic continue diuresis and fluid restriction her PO intake is over 1L fluid restriction. (3) Fluid overload Plan: due to advanced and decompensated heart failure, needs diuresis. EF 15-20% continue Bumex IV, restart Spironolactone 25 mg daily ED delgado ordered (Leah Kirkpatrick) Plan patient was seen and examined. Renal function is stable, she has significant lower extremity edema. Continue Bumex. Start Spironolactone. (Jevon Villaseñor MD ) Leah Kirkpatrick Aug 05, 2016 09:34 Jevon Villaseñor MD Aug 05, 2016 19:36
[2016-08-05 12:00] VITALS: BP 104/63; PULSE 112; RESP 20; TEMP 96.6; O2SAT 93
[2016-08-05] MEDS: oxyCODONE/ACETAMINOPHEN 5 MG/325 MG TAB PO PRN ×2 (12:00→21:01)
[2016-08-05] MEDS: FERROUS SULFATE 325 MG (65 MG ELEMENTAL IRON) TAB PO SCH ×2 (12:00→16:03)
[2016-08-05 16:00] VITALS: BP 100/62; PULSE 96; RESP 20; TEMP 97.1; O2SAT 93
--- NOTE | 2016-08-05 17:00 | HHI.PR ---
Subjective Remarks patient c/o pain in right shoulder, left hand and neck after she fell yesterday good urine output still with edema Objective Vitals Vital Signs Date Time Temp Pulse Resp B/P Pulse Ox O2 Delivery O2 Flow Rate FiO2 08/05/16 16:00 97.1 96 20 100/62 93 Automatic Cuff 08/05/16 12:00 96.6 112 20 104/63 93 08/05/16 08:00 96.4 114 20 116/75 93 08/05/16 04:00 97.3 108 19 114/79 95 08/05/16 01:05 16 08/05/16 00:00 97.6 102 18 115/65 95 08/04/16 23:59 100 18 112/77 08/04/16 20:30 98.0 106 21 112/95 90 I/O 08/04/16 08/04/16 08/04/16 08/05/16 08/05/16 08/05/16 06:59 14:59 22:59 06:59 14:59 22:59 Intake Total 360 ml 400 ml 640 ml 480 ml Balance 360 ml 400 ml 640 ml 480 ml Intake Oral 360 ml 400 ml 640 ml 480 ml # Voids 3 4 1 2 5 # Bowel Movements 1 1 0 0 0 Result Diagram: 08/05/16 0741 08/05/16 0741 Imaging Last Impressions Pelvis X-Ray 08/04/16 0000 Signed Impressions: Service Date/Time: Friday, August 05, 2016 04:17 - CONCLUSION: Unremarkable study. KRamez Luna MD Lower Extremity Ultrasound 08/02/16 0000 Signed Impressions: Service Date/Time: Tuesday, August 02, 2016 19:32 - CONCLUSION: The study is negative for deep venous thrombosis bilateral lower extremity. Alan Burton MD Central Venous Line 07/31/16 0000 Signed Impressions: Service Date/Time: Sunday, July 31, 2016 00:00 - CONCLUSION: Uncomplicated Permcath removal. Sandor Perez MD Chest X-Ray 07/30/16 0000 Signed Impressions: Service Date/Time: July 12:07 - CONCLUSION: 1. Stable cardiomegaly without failure. 2. No acute abnormality or significant interval change. Sandor Perez MD Objective Remarks GENERAL: This is a well-nourished, well-developed patient, in no apparent distress. SKIN: No rashes, ecchymoses or lesions. Cool and dry. HEAD: Atraumatic. Normocephalic. No temporal or scalp tenderness. EYES: Pupils equal round and reactive. Extraocular motions intact. No scleral icterus. No injection or drainage. ENT: Nose without bleeding, purulent drainage or septal hematoma. Throat without erythema, tonsillar hypertrophy or exudate. Uvula midline. Airway patent. NECK: Trachea midline. No JVD or lymphadenopathy. Supple, nontender, no meningeal signs. CARDIOVASCULAR: Regular rate and rhythm without murmurs, gallops, or rubs. RESPIRATORY: Diffuse bilateral inspiratory and expiratory wheezing improved from previous day. No rhonchi. Mild crackles at bases bilaterally. GASTROINTESTINAL: Abdomen soft, non-tender, nondistended. No hepato-splenomegaly , or palpable masses. No guarding. MUSCULOSKELETAL: Extremities without clubbing, cyanosis, (+) 1 edema. No joint tenderness, effusion, or edema noted. No calf tenderness. Negative Homans sign bilaterally. NEUROLOGICAL: Awake and alert. Cranial nerves II through XII intact. Motor and sensory grossly within normal limits. Five out of 5 muscle strength in all muscle groups. Normal speech. Procedures none Medications and IVs Current Medications Medications (Trade) Dose Ordered Sig/Digna Route Start Time Stop Time Status Last Admin (NS Flush) 2 ml UNSCH PRN IV FLUSH 07/27/16 14:00 (NS Flush) 2 ml BID IV FLUSH 07/27/16 21:00 08/05/16 21:02 (Tylenol) 650 mg Q4H PRN PO 07/27/16 14:00 (Zofran Inj) 4 mg Q6H PRN IVP 07/27/16 14:00 (Mitzy-Colace) 1 tab BID PO 07/27/16 21:00 08/05/16 21:01 (Milk Of Magnesia Liq) 30 ml Q12H PRN PO 07/27/16 14:00 (Senokot) 17.2 mg Q12H PRN PO 07/27/16 14:00 (Dulcolax Supp) 10 mg DAILY PRN RECTAL 07/27/16 14:00 (Lactulose Liq) 30 ml DAILY PRN PO 07/27/16 14:00 (D50w (Vial) Inj) 50 ml UNSCH PRN IV 07/27/16 14:00 (Glucagon Inj) 1 mg UNSCH PRN OTHER 07/27/16 14:00 (Aspirin Chew) 81 mg DAILY CHEW 07/28/16 09:00 08/05/16 08:17 (Coreg) 3.125 mg Q12HR PO 07/27/16 21:00 08/05/16 08:17 (Lactulose Liq) 30 ml DAILY PO 07/28/16 09:00 08/05/16 08:17 (Synthroid) 50 mcg DAILY@0600 PO 07/28/16 06:00 08/06/16 06:08 (Aldactone) 25 mg DAILY PO 07/28/16 09:00 08/01/16 08:47 (Ultram) 50 mg Q6H PRN PO 07/27/16 18:00 08/02/16 03:09 (Protonix) 40 mg DAILY PO 07/28/16 09:00 08/05/16 08:17 (Zofran Odt) 4 mg Q6H PRN PO 07/27/16 18:00 (Neurontin) 300 mg TID PO 07/29/16 09:00 08/05/16 17:35 (Mag-Al Plus Susp Liq) 30 ml Q6H PRN PO 07/28/16 19:30 (Proamatine) 10 mg TID@,, PO 07/29/16 12:00 08/06/16 06:09 (Ferrous Sulfate) 325 mg BID@ PO 07/30/16 17:00 08/05/16 16:03 (Robitussin La Pediatric Cough Liq) 7.5 mg Q6H PRN PO 07/31/16 16:15 (Xanax) 0.25 mg Q8H PRN PO 08/01/16 12:45 08/06/16 03:17 (Ativan) 1 mg HS PRN PO 08/01/16 23:30 08/05/16 21:00 (Percocet 5-325 Mg) 2 tab Q6H PRN PO 08/02/16 18:30 08/06/16 03:17 (Percocet 5-325 Mg) 1 tab Q4H PRN PO 08/02/16 18:30 (Levaquin) 250 mg DAILY PO 08/04/16 09:00 08/05/16 08:17 (Bumex Inj) 2 mg BID@,18 IV PUSH 08/04/16 18:00 08/05/16 17:35 (Deltasone) 30 mg DAILY PO 08/05/16 09:00 08/05/16 08:17 (Pill Splitter) 1 ea UNSCH PRN OTHER 08/04/16 16:00 (Levemir Inj) 15 units BID SQ 08/05/16 09:00 08/05/16 08:17 A/P Problem List: (1) CHF (congestive heart failure) ICD Code: I50.9 Status: Chronic (2) CAD (coronary artery disease) ICD Code: I25.10 Status: Chronic (3) Type 2 diabetes mellitus with hyperglycemia, with long-term current use of insulin ICD Code: E11.65 Status: Acute (4) Acute kidney injury ICD Code: N17.9 Status: Acute (5) Hyperammonemia ICD Code: E72.20 Status: Acute (6) Hyponatremia ICD Code: E87.1 Status: Acute (7) Hepatitis C ICD Code: B19.20 Status: Chronic (8) Cirrhosis ICD Code: K74.60 Status: Chronic (9) COPD with acute exacerbation ICD Code: J44.1 Status: Resolved Plan: Patient is still coughing frequently. Chest pain likely secondary to frequent cough and likely musculoskeletal. EKG reviewed by me and done on shows sinus rhythm at 88 bpm without ischemic changes. Chest x-ray did not show any infiltrates. Q the patient has bilateral expiratory wheezing I will start the patient on IV Solu-Medrol. Will give 125 mg IV now and then we'll continue on 40 mg IV every 6 hours. I will also start the patient IV Levaquin. Will Rx dextromethorphan as needed for cough. Continue DuoNeb's every 6 hours while awake and then every 2 hours as needed for shortness of breath/wheezing. Continue supplemental oxygen. Will order incentive spirometry as well. 08/01 COPD improving but patient still with wheezing. Taper Solumedrol IV to 40 mg Q 8 hrs. Continue O2 to keep o2 sat >92%. Continue duoneb's nebs. Upon review of EMR Levaquin has not been administered and is scheduled for tomorrow. Will change to be given today. 08/02 COPD much improved - with Taper Solu-Medrol to 40 mg IV every 12 hours. Continue IV Levaquin, bronchodilators and supplemental oxygen as above. 08/03 I will discontinue IV Solu Medrol and start oral prednisone. Continue management as above. 08/04 Decrease prednisone dose down to 30 mg po daily. 08/05 continue steroid taper (10) Bilateral calf pain ICD Code: M79.661 Status: Resolved Plan: Bilateral lower extremity venous Dopplers negative for DVT. (11) Blurry vision, bilateral ICD Code: H53.8 Status: Acute Plan: Possibly secondary to elevated blood sugars. Will onitor if still present when sugars improved then will consult ophtalmology. (12) Fall ICD Code: W19.XXXA Status: Acute Plan: Patient fell today on her buttocks as per RN patient is c/o pain in hip. Will check a pelvis x ray. 08/05 Patient c/o neck pain, left hand pain and right shoulder pain which started after she fell. Will obtain ct of the neck, left hand, and right shoulder. Continue pain control with percocet. Assessment and Plan (1) Acute on Chronic systolic heart failure. Plan: Treated with IV lasix or spironolactone. Echocardiogram performed on 07/21/16 showed a cavity size which was mildly to moderately dilated with severely reduced systolic function with an EF in 3-15-20 %. Diffuse hypokinesis. Moderate mitral valve regurgitation, moderate tricuspid regurgitation. Diuretics held due to rise in creatinine. 08/04 Nephrology consulted. Appreciate recommendations. Patient restarted on Lasix and will be switched to Bumex. (2) CAD (coronary artery disease) Plan: Continue Aspirin. Cardiology has been consulted on previous admission. (3) Type 2 diabetes mellitus with hyperglycemia, with long-term current use of insulin Plan: SSI with insulin Novolog, monitor accuchecks. Last hemoglobin A1c was 7.4 on 05/14. Diabetes is uncontrolled. 08/01 blood sugars elevated likely due to steroid use. 08/03 patient started on insulin Levemir 10 units subcutaneous at at bedtime. However blood sugar still uncontrolled. We'll increase Levemir to 10 units subcutaneous twice a day. 08/04 Patient has been refusing her insulin reinforced importance of compliance. (4) Acute kidney injury Plan: Creatinine continues to trend down. Continue to monitor BUN/creatinine. Slides and O's, avoid nephrotoxins. 08/01 Creatinine increased from 1.2 to 1.9 with worsening DEL. I will hold lasix and give gentle IV fluids. Possible overdiuresis. 08/02 creatinine slightly worsened from 1.95-1.97. I will continue IV fluids and consult nephrology. I will increase normal saline to 100 mL per hour. Continue to monitor BUN/creatinine, strict I's and O's and avoid nephrotoxins. 08/04 appreciate nephrology recommendations. Diuretics resumed. Fu nephrology recommendations. 08/05 creatinine trending down, however patient still edematous continue diuresis as per nephrology. (5) Hyperammonemia Plan: Continue Lactulose. Monitor ammonia - trending down and now with a normal level of 32. (6) Hyponatremia Plan: Hypervolemic hyponatremia. Improving and sodium trending up. Continue w fluid restriction and Lasix. 08/01 Sodium trended down to 126 - due to overdiuresis? likely hypovolemic hyponatremia, sodium trending up and now 132. Continue to monitor BMP. 08/05 Sodium worst, due to hypervolemia - continue fluid restriction and diuresis. (7) Hepatitis C Plan: Patient had a hepatitis C antibody reactive positive in April 2016 and has been evaluated by GI at the time. (8) Cirrhosis Plan: Continue diuretics. Discharge Planning Discharge pending nephrology clearance. pendin x ray left hand, right shoulder and ct of the neck. Problem Qualifiers (1) CHF (congestive heart failure): Qualified Code: I50.21 - Acute systolic congestive heart failure (2) CAD (coronary artery disease): Qualified Code: I25.10 - Coronary artery disease involving [place] coronary artery of [place] heart without angina pectoris (3) Hepatitis C: (4) Cirrhosis: Qualified Code: K74.60 - Cirrhosis of liver with ascites, unspecified hepatic cirrhosis type (5) Fall: Qualified Code: W19.XXXA - Fall, initial encounter Douglas Bhardwaj MD Aug 05, 2016 17:00
[2016-08-05 20:00] VITALS: BP 107/70; PULSE 109; RESP 20; TEMP 96.1; O2SAT 96
[2016-08-05] MEDS: LORazepam 1 MG TAB PO PRN (21:00)
[2016-08-06] VITALS: BP 140/78; PULSE 100; RESP 20; TEMP 97.9; O2SAT 97
[2016-08-06] MEDS: oxyCODONE/ACETAMINOPHEN 5 MG/325 MG TAB PO PRN ×2 (03:17→09:18)
[2016-08-06] MEDS: ALPRAZolam 0.25 MG TAB PO PRN (03:17)
[2016-08-06 04:20] VITALS: BP 138/80; PULSE 101; RESP 22; TEMP 98; O2SAT 98
[2016-08-06] MEDS: LEVOTHYROXINE SODIUM 50 MCG TAB PO SCH (06:08)
[2016-08-06] MEDS: MIDODRINE 5 MG TAB PO SCH ×4 (06:09→16:41)
[2016-08-06] MEDS: INSULIN ASPART SUPPLEMENTAL SCALE SQ SCH ×4 (06:09→20:28)
[2016-08-06] MEDS: LACTULOSE SYRUP 20 GM/30 ML CUP PO SCH (08:39)
[2016-08-06] MEDS: GABAPENTIN 300 MG CAP PO SCH ×3 (08:39→16:42)
[2016-08-06] MEDS: ASPIRIN 81 MG CHEW TAB CHEW SCH (08:39)
[2016-08-06] MEDS: DOCUSATE SODIUM 50 MG/SENNA 8.6 MG TAB PO SCH ×2 (08:39→21:08)
[2016-08-06] MEDS: SPIRONOLACTONE 25 MG TAB PO SCH (08:39)
[2016-08-06] MEDS: LEVOFLOXACIN 250 MG TAB PO SCH (08:39)
[2016-08-06] MEDS: CARVEDILOL 3.125 MG TAB PO SCH ×2 (08:39→21:00)
[2016-08-06] MEDS: PANTOPRAZOLE SOD 40 MG DELAYED RELEASE TAB PO SCH (08:39)
[2016-08-06] MEDS: predniSONE 20 MG TAB PO SCH (08:39)
[2016-08-06] MEDS: BUMETANIDE INJ 1 MG/4 ML VIAL IV PUSH SCH ×2 (08:40→17:30)
[2016-08-06] MEDS: INSULIN DETEMIR 100 UNITS/ML VIAL SQ SCH (08:49)
[2016-08-06] MEDS: SODIUM CHLORIDE 0.9% FLUSH 10 ML FLUSH IV FLUSH SCH ×2 (09:20→21:08)
--- NOTE | 2016-08-06 10:04 | RADRPT ---
EXAM DATE/TIME: 08/06/2016 09:49 [facility] COMPARISON: No previous studies available for comparison. INDICATIONS : Right shoulder pain post fall per patient. MEDICAL HISTORY : Hypercholesterolemia. Chronic obstructive pulmonary disease. Deep venous thrombosis. DVT [place] CHF SURGICAL HISTORY : Cholecystectomy. Coronary artery stent. Appendectomy. c/section defibrillator tubal ENCOUNTER: Initial ACUITY: 2 days PAIN SCORE: 9/10 LOCATION: all over FINDINGS: Two view examination of the right shoulder demonstrates no evidence of fracture or dislocation. The glenohumeral and acromioclavicular joints are maintained. Bony mineralization is normal. CONCLUSION: No acute disease. Richard Powell MD on August 06, 2016 at 10:01 Board Certified Radiologist. This report was verified electronically.
--- NOTE | 2016-08-06 10:10 | RADRPT ---
EXAM DATE/TIME: 08/06/2016 09:47 [facility] COMPARISON: No previous studies available for comparison. INDICATIONS : Left hand pain post fall per patient. MEDICAL HISTORY : Hypercholesterolemia. Chronic obstructive pulmonary disease. Deep venous thrombosis. thyroid SURGICAL HISTORY : Appendectomy. Cholecystectomy. Coronary artery stent. defibrillator c/section/ tubal ENCOUNTER: Initial ACUITY: 2 days PAIN SCORE: 9/10 LOCATION: all over FINDINGS: Two view examination of the left hand demonstrates no soft tissue swelling, dislocation, or fracture. The joint spaces are maintained. Bony mineralization is normal. CONCLUSION: No acute disease. Richard Powell MD on August 06, 2016 at 10:06 Board Certified Radiologist. This report was verified electronically.
[2016-08-06 10:35] LABS: HEMATOCRIT 38.8 % (35.0-46.0); MEAN CELL VOLUME 78.5 FL (80.0-100.0); MEAN CORPUSCULAR HEMOGLOBIN 23.8 PG (27.0-34.0); MEAN CORPUSCULAR HGB CONC 30.3 % (32.0-36.0); PLATELET COUNT 77 TH/MM3 (150-450); RED BLOOD COUNT 4.94 MIL/MM3 (4.00-5.30); RED CELL DISTRIBUTION WIDTH 29.5 % (11.6-17.2); WHITE BLOOD COUNT 4.6 TH/MM3 (4.0-11.0)
[2016-08-06 10:39] LABS: HEMO FLAGS AUTO DIFF
[2016-08-06 10:53] LABS: ALT (GPT) 18 U/L (10-53); ANION GAP 10 MEQ/L (5-15); AST (GOT) 44 U/L (15-37); BICARBONATE 28.8 MEQ/L (21.0-32.0); BLOOD UREA NITROGEN 45 MG/DL (7-18); CHLORIDE 97 MEQ/L (98-107); GLOMERULAR FILTRATION RATE 32 ML/MIN (>89); MAGNESIUM 1.3 MG/DL (1.5-2.5); POTASSIUM 3.5 MEQ/L (3.5-5.1); SODIUM (NA) 136 MEQ/L (136-145)
[2016-08-06 10:55] LABS: ALKALINE PHOSPHATASE 47 U/L (45-117); TOTAL BILIRUBIN ADULT 3.2 MG/DL (0.2-1.0)
--- NOTE | 2016-08-06 11:01 | RADRPT ---
EXAM DATE/TIME: 08/06/2016 09:56 [facility] COMPARISON: No previous studies available for comparison. INDICATIONS : Neck pain. RADIATION DOSE: 32.17 CTDIvol (mGy) MEDICAL HISTORY : Cardiovascular disease. Hypertension. Chronic obstructive pulmonary disease. SURGICAL HISTORY : None. ENCOUNTER: Initial ACUITY: 1 day PAIN SCALE: 10/10 LOCATION: neck TECHNIQUE: Volumetric scanning of the cervical spine was performed. Multiplanar reconstructions in the sagittal, coronal and oblique axial planes were performed. Using automated exposure control and adjustment o f the mA and/or kV according to patient size, radiation dose was kept as low as reasonably achievable to obtain optimal diagnostic quality images. FINDINGS: VERTEBRAE: Normal vertebral body height. These C2 and C3 vertebral bodies are fused. ALIGNMENT: No evidence of subluxation. C2-C3: The bony spinal canal is normal in size. No evidence of disc bulge or herniation. The neural forami na are bilaterally patent. C3-C4: The bony spinal canal is normal in size. No evidence of disc bulge or herniation. The neural forami na are bilaterally patent. C4-C5: The bony spinal canal is normal in size. No evidence of disc bulge or herniation. The neural forami na are bilaterally patent. C5-C6: The bony spinal canal is normal in size. No evidence of disc bulge or herniation. The neural forami na are bilaterally patent. C6-C7: The bony spinal canal is normal in size. No evidence of disc bulge or herniation. The neural forami na are bilaterally patent. C7-T1: The bony spinal canal is normal in size. No evidence of disc bulge or herniation. The neural forami na are bilaterally patent. CONCLUSION: No acute disease. Fused C2 and C3 vertebral bodies. Gopal Lovell MD on August 06, 2016 at 10:56 Board Certified Radiologist. This report was verified electronically.
[2016-08-06 11:33] LABS: BANDS 59 % (0-6); CORRECTED NUCLEATED RBC 2 /100 WBC (0-0); EOSINOPHILS 1 % (0-4); METAMYELOCYTES 7 % (0-1); MYELOCYTES 1 % (0-0); NEUTROPHIL # MANUAL DIFF 4.2 TH/MM3 (1.8-7.7); POLYS (SEG NEUTROPHILS) 24 % (16-70); PROMYELOCYTES 1 % (0-0); WBC DIFF SAMPLE 100
[2016-08-06 11:36] LABS: ACANTHOCYTES OCC (NORMAL)
[2016-08-06 11:37] LABS: PLATELET ESTIMATE SMEAR LOW (NORMAL); PLATELET MORPHOLOGY NORMAL (NORMAL); SCAN/DIFF FINAL DIFF MANUAL; TOXIC GRANULATION 3+ (NORMAL); TOXIC VACUOLATION PRESENT (NONE SEEN)
[2016-08-06 12:49] VITALS: BP 81/54; PULSE 114; RESP 19; TEMP 96.5; O2SAT 95
[2016-08-06] MEDS: FERROUS SULFATE 325 MG (65 MG ELEMENTAL IRON) TAB PO SCH ×2 (13:06→16:41)
[2016-08-06] MEDS ORDERED: POTASSIUM PHOSPHATE MONOBASIC 500 MG TAB PO ONE (15:30)
--- NOTE | 2016-08-06 16:37 | HHI.NPPN ---
Subjective General Problems: Edema, Heart Disease, Hypotension Renal Failure: Chronic, Acute Interval History Her renal function is better. BP low during my exam, she is due for midodrine dosage. Edema slightly better. (Leah Kirkpatrick) Review of Systems Respiratory Lungs: SOB (Leah Kirkpatrick) Cardiovascular Cardiac: Edema (Leah Kirkpatrick) Musculoskeletal MS: Pain/Stiffness (Leah Kirkpatrick) Objective Data Data 08/05/16 08/06/16 19:00 07:00 Intake Total 480 ml 500 ml Balance 480 ml 500 ml Intake Oral 480 ml 500 ml # Voids 6 5 # Bowel Movements 0 0 Vital Signs Date Time Temp Pulse Resp B/P Pulse Ox O2 Delivery O2 Flow Rate FiO2 08/06/16 12:49 96.5 114 19 81/54 95 08/06/16 04:37 20 08/06/16 04:20 98.0 101 22 138/80 98 08/06/16 00:00 97.9 100 20 140/78 97 08/05/16 20:00 96.1 109 20 107/70 96 (Leah Kirkpatrick) -: 08/06/16 1020 08/06/16 1020 Physical Exam General Appearance: Well Developed, No Acute Distress, Comfortable, Sleeping, Malnourished (Leah Kirkpatrick) Eyes Eye Exam: Pupils Equal (Leah Kirkpatrick) Throat Throat Exam: Oral Mucosa [place] & Moist (Leah Kirkpatrick) Pulmonary Resp Exam: Breath Sounds Equal, Crackles (Leah Kirkpatrick) Cardiology CV Exam: Regular, Normal Sinus Rhythm, Murmur CV Remarks AICD left chest (Leah Kirkpatrick) Gastrointestinal/Abdomen GI Exam: Soft, Non-Tender, Bowel Sounds Present (Leah Kirkpatrick) Musculoskeletal MS Exam: Joints Intact, Normal Tone (Leah Kirkpatrick) Integumentary Skin Exam: Clear, Warm, Dry, Intact (Leah Kirkpatrick) Extremeties Extremities Exam: Pedal Pulses Palpable, Pitting Edema, Dependent Edema ( Leah Kirkpatrick) Neurologic Neuro Exam: Alert, Awake, Oriented, Speech Clear, Moving All Extremities ( Leah Kirkpatrick) Psychiatric Psych Exam: Appropriate Responses (Leah Kirkpatrick) Assessment/Plan Discussed Condition With: Patient Assessment Summary: DEL/Acute Renal Failure, Fluid/Volume Overload, CHF, Hypotension Electrolyte Assessment: Hyponatremia Problem List: (1) Acute kidney injury Plan: on CKD, with baseline creatinine 1.2-1.3 from last month DEL due to renal hypoperfusion from decompensated heart failure and hypotension renal function has improved continue midodrine TID, avoid hypotension continue diuresis as below she is nonoliguric but volume is not documented daily renal panel , phosphorus has been replaced avoid IVF, nephrotoxic agents (2) Hyponatremia Plan: hypervolemic improved continue diuresis and fluid restriction (3) Fluid overload Plan: due to advanced and decompensated heart failure continue diuresis. EF 15-20% continue Bumex IV BID, Spironolactone 25 mg daily resumed 08/05 (Leah Kirkpatrick) Plan patient was seen and examined. Agree with above assessment and plan. (Jevon Villaseñor MD) Leah Kirkpatrick Aug 06, 2016 16:36 Jevon Villaseñor MD Aug 07, 2016 14:20
--- NOTE | 2016-08-06 16:54 | HHI.PR ---
Subjective Remarks Patient reports the patient's blood sugars is low at 58. Repeat blood sugars are 42 The patient is very sleepy Denies chest pain or shortness of breath, however states she feels rundown The pressure is very low Heart rate is tachycardic Objective Vitals Vital Signs Date Time Temp Pulse Resp B/P Pulse Ox O2 Delivery O2 Flow Rate FiO2 08/06/16 12:49 96.5 114 19 81/54 95 08/06/16 04:37 20 08/06/16 04:20 98.0 101 22 138/80 98 08/06/16 00:00 97.9 100 20 140/78 97 08/05/16 20:00 96.1 109 20 107/70 96 I/O 08/05/16 08/05/16 08/05/16 08/06/16 08/06/16 08/06/16 06:59 14:59 22:59 06:59 14:59 22:59 Intake Total 640 ml 480 ml 400 ml 100 ml Balance 640 ml 480 ml 400 ml 100 ml Intake Oral 640 ml 480 ml 400 ml 100 ml # Voids 2 5 2 4 1 # Bowel Movements 0 0 0 0 Result Diagram: 08/06/16 1020 08/06/16 1020 Imaging Last Impressions Shoulder X-Ray 08/06/16 0000 Signed Impressions: Service Date/Time: July 09:49 - CONCLUSION: No acute disease. Richard Powell MD Hand X-Ray 08/06/16 0000 Signed Impressions: Service Date/Time: July 09:47 - CONCLUSION: No acute disease. Richard Powell MD Cervical Spine CT 08/06/16 0000 Signed Impressions: Service Date/Time: July 09:56 - CONCLUSION: No acute disease. Fused C2 and C3 vertebral bodies. Gopal Lovell MD Pelvis X-Ray 08/04/16 0000 Signed Impressions: Service Date/Time: Friday, August 05, 2016 04:17 - CONCLUSION: Unremarkable study. Julius Luna MD Lower Extremity Ultrasound 08/02/16 0000 Signed Impressions: Service Date/Time: Tuesday, August 02, 2016 19:32 - CONCLUSION: The study is negative for deep venous thrombosis bilateral lower extremity. Alan Burton MD Central Venous Line 07/31/16 0000 Signed Impressions: Service Date/Time: Sunday, July 31, 2016 00:00 - CONCLUSION: Uncomplicated Permcath removal. Sandor Perez MD Chest X-Ray 07/30/16 0000 Signed Impressions: Service Date/Time: July 12:07 - CONCLUSION: 1. Stable cardiomegaly without failure. 2. No acute abnormality or significant interval change. Sandor Perez MD Objective Remarks GENERAL: This is a well-nourished, well-developed patient, lethargic. SKIN: No rashes, ecchymoses or lesions. Cool and dry. HEAD: Atraumatic. Normocephalic. No temporal or scalp tenderness. EYES: Pupils equal round and reactive. Extraocular motions intact. No scleral icterus. No injection or drainage. ENT: Nose without bleeding, purulent drainage or septal hematoma. Throat without erythema, tonsillar hypertrophy or exudate. Uvula midline. Airway patent. NECK: Trachea midline. No JVD or lymphadenopathy. Supple, nontender, no meningeal signs. CARDIOVASCULAR: Regular rate and rhythm without murmurs, gallops, or rubs. RESPIRATORY: Diffuse bilateral inspiratory and expiratory wheezing improved from previous day. No rhonchi. Mild crackles at bases bilaterally. GASTROINTESTINAL: Abdomen soft, non-tender, nondistended. No hepato-splenomegaly , or palpable masses. No guarding. MUSCULOSKELETAL: Extremities without clubbing, cyanosis, (+) 1 edema. No joint tenderness, effusion, or edema noted. No calf tenderness. Negative Homans sign bilaterally. NEUROLOGICAL: Awake and alert. Cranial nerves II through XII intact. Motor and sensory grossly within normal limits. Five out of 5 muscle strength in all muscle groups. Normal speech. Procedures none Medications and IVs Current Medications Medications (Trade) Dose Ordered Sig/Digna Route Start Time Stop Time Status Last Admin (NS Flush) 2 ml UNSCH PRN IV FLUSH 07/27/16 14:00 (NS Flush) 2 ml BID IV FLUSH 07/27/16 21:00 08/06/16 09:20 (Tylenol) 650 mg Q4H PRN PO 07/27/16 14:00 (Zofran Inj) 4 mg Q6H PRN IVP 07/27/16 14:00 (Mitzy-Colace) 1 tab BID PO 07/27/16 21:00 08/06/16 08:39 (Milk Of Magnesia Liq) 30 ml Q12H PRN PO 07/27/16 14:00 (Senokot) 17.2 mg Q12H PRN PO 07/27/16 14:00 (Dulcolax Supp) 10 mg DAILY PRN RECTAL 07/27/16 14:00 (Lactulose Liq) 30 ml DAILY PRN PO 07/27/16 14:00 (D50w (Vial) Inj) 50 ml UNSCH PRN IV 07/27/16 14:00 08/06/16 17:18 (Glucagon Inj) 1 mg UNSCH PRN OTHER 07/27/16 14:00 (Aspirin Chew) 81 mg DAILY CHEW 07/28/16 09:00 08/06/16 08:39 (Coreg) 3.125 mg Q12HR PO 07/27/16 21:00 08/06/16 08:39 (Lactulose Liq) 30 ml DAILY PO 07/28/16 09:00 08/06/16 08:39 (Synthroid) 50 mcg DAILY@0600 PO 07/28/16 06:00 08/06/16 06:08 (Aldactone) 25 mg DAILY PO 07/28/16 09:00 08/06/16 08:39 (Ultram) 50 mg Q6H PRN PO 07/27/16 18:00 08/02/16 03:09 (Protonix) 40 mg DAILY PO 07/28/16 09:00 08/06/16 08:39 (Zofran Odt) 4 mg Q6H PRN PO 07/27/16 18:00 (Neurontin) 300 mg TID PO 07/29/16 09:00 08/06/16 16:42 (Mag-Al Plus Susp Liq) 30 ml Q6H PRN PO 07/28/16 19:30 (Proamatine) 10 mg TID@07,,17 PO 07/29/16 12:00 08/06/16 16:41 (Ferrous Sulfate) 325 mg BID@12,17 PO 07/30/16 17:00 08/06/16 16:41 (Robitussin La Pediatric Cough Liq) 7.5 mg Q6H PRN PO 07/31/16 16:15 (Xanax) 0.25 mg Q8H PRN PO 08/01/16 12:45 08/06/16 03:17 (Ativan) 1 mg HS PRN PO 08/01/16 23:30 08/05/16 21:00 (Levaquin) 250 mg DAILY PO 08/04/16 09:00 08/06/16 08:39 (Bumex Inj) 2 mg BID@,18 IV PUSH 08/04/16 18:00 08/06/16 08:40 (Deltasone) 30 mg DAILY PO 08/05/16 09:00 08/06/16 08:39 (Pill Splitter) 1 ea UNSCH PRN OTHER 08/04/16 16:00 (Percocet 5-325 Mg) 1 tab Q6H PRN PO 08/06/16 17:15 Urinary Catheter: No Vascular Central Line Catheter: No A/P Problem List: (1) CHF (congestive heart failure) ICD Code: I50.9 Status: Chronic (2) CAD (coronary artery disease) ICD Code: I25.10 Status: Chronic (3) Type 2 diabetes mellitus with hyperglycemia, with long-term current use of insulin ICD Code: E11.65 Status: Acute (4) Acute kidney injury ICD Code: N17.9 Status: Acute (5) Hyperammonemia ICD Code: E72.20 Status: Acute (6) Hyponatremia ICD Code: E87.1 Status: Acute (7) Hepatitis C ICD Code: B19.20 Status: Chronic (8) Cirrhosis ICD Code: K74.60 Status: Chronic (9) COPD with acute exacerbation ICD Code: J44.1 Status: Resolved (10) Bilateral calf pain ICD Code: M79.661 Status: Resolved (11) Blurry vision, bilateral ICD Code: H53.8 Status: Acute (12) Fall ICD Code: W19.XXXA Status: Acute (13) Hypoglycemia due to insulin ICD Code: E16.0 Status: Acute Plan: Patient with severe hypoglycemia and symptoms. I will hold insulin Levemir. Ordered stat 1 amp of D50. Continue to monitor Accu-Cheks. Will monitor on Accu-Chek, one hour after glucoses administered. (14) Hypotension ICD Code: I95.9 Status: Acute Plan: Will give normal saline 250 cc IV bolus. Continue to monitor vital signs. Continue Midodrine. Assessment and Plan (1) Acute on Chronic systolic heart failure. Plan: Initially treated with IV Lasix and spironolactone Echocardiogram performed on 07/21/16 showed a cavity size which was mildly to moderately dilated with severely reduced systolic function with an EF in 3-15-20 %. Diffuse hypokinesis. Moderate mitral valve regurgitation, moderate tricuspid regurgitation. Diuretics held due to rise in creatinine. 08/04 Nephrology consulted. Appreciate recommendations. Patient restarted on Lasix and will be switched to Bumex. 08/06 Bumex and her nocturnal due to hypotension. (2) CAD (coronary artery disease) Plan: Continue Aspirin. Cardiology has been consulted on previous admission. (3) Type 2 diabetes mellitus with hyperglycemia, with long-term current use of insulin Plan: SSI with insulin Novolog, monitor accuchecks. Last hemoglobin A1c was 7.4 on 05/14. Diabetes is uncontrolled. 08/01 blood sugars elevated likely due to steroid use. 08/03 patient started on insulin Levemir 10 units subcutaneous at at bedtime. However blood sugar still uncontrolled. We'll increase Levemir to 10 units subcutaneous twice a day. 08/04 Patient has been refusing her insulin reinforced importance of compliance. (4) Acute kidney injury Plan: Creatinine continues to trend down. Continue to monitor BUN/creatinine. Slides and O's, avoid nephrotoxins. 08/01 Creatinine increased from 1.2 to 1.9 with worsening DEL. I will hold lasix and give gentle IV fluids. Possible overdiuresis. 08/02 creatinine slightly worsened from 1.95-1.97. I will continue IV fluids and consult nephrology. I will increase normal saline to 100 mL per hour. Continue to monitor BUN/creatinine, strict I's and O's and avoid nephrotoxins. 08/04 appreciate nephrology recommendations. Diuretics resumed. Fu nephrology recommendations. 08/05 creatinine trending down, however patient still edematous continue diuresis as per nephrology. (5) Hyperammonemia Plan: Continue Lactulose. Monitor ammonia - trending down and now with a normal level of 32. (6) Hyponatremia Plan: Hypervolemic hyponatremia. Improving and sodium trending up. Continue w fluid restriction and Lasix. 08/01 Sodium trended down to 126 - due to overdiuresis? likely hypovolemic hyponatremia, sodium trending up and now 132. Continue to monitor BMP. 08/05 Sodium worst, due to hypervolemia - continue fluid restriction and diuresis. sodium improved at 136. Continue to monitor BMP. (7) Hepatitis C Plan: Patient had a hepatitis C antibody reactive positive in April 2016 and has been evaluated by GI at the time. (8) Cirrhosis Plan: Treated with diuresis initially. However patient hypotensive today. Will hold diuretics. (9) COPD with acute exacerbation Plan: Patient is still coughing frequently. Chest pain likely secondary to frequent cough and likely musculoskeletal. EKG reviewed by me and done on shows sinus rhythm at 88 bpm without ischemic changes. Chest x-ray did not show any infiltrates. Q the patient has bilateral expiratory wheezing I will start the patient on IV Solu-Medrol. Will give 125 mg IV now and then we'll continue on 40 mg IV every 6 hours. I will also start the patient IV Levaquin. Will Rx dextromethorphan as needed for cough. Continue DuoNeb's every 6 hours while awake and then every 2 hours as needed for shortness of breath/wheezing. Continue supplemental oxygen. Will order incentive spirometry as well. 08/01 COPD improving but patient still with wheezing. Taper Solumedrol IV to 40 mg Q 8 hrs. Continue O2 to keep o2 sat >92%. Continue duoneb's nebs. Upon review of EMR Levaquin has not been administered and is scheduled for tomorrow. Will change to be given today. 08/02 COPD much improved - with Taper Solu-Medrol to 40 mg IV every 12 hours. Continue IV Levaquin, bronchodilators and supplemental oxygen as above. 08/03 I will discontinue IV Solu Medrol and start oral prednisone. Continue management as above. 08/04 Decrease prednisone dose down to 30 mg po daily. 08/05 continue steroid taper 08/06 decrease penicillin dose down to 20 mg by mouth daily (10) Bilateral calf pain Plan: Bilateral lower extremity venous Dopplers negative for DVT. (11) Blurry vision, bilateral Plan: Possibly secondary to elevated blood sugars. Will monitor if still present when sugars improved then will consult ophtalmology. (12) Fall Plan: Patient fell on 08/04 on her buttocks as per RN patient is c/o pain in hip. Will check a pelvis x ray. 08/05 Patient c/o neck pain, left hand pain and right shoulder pain which started after she fell. Will obtain ct of the neck, left hand, and right shoulder. Continue pain control with percocet. 08/[address] of the neck, left hand x-ray and right shoulder x- ray did not show any fractures. 35 minutes of critical care time spent with patient. Discharge Planning Discharge pending nephrology clearance. pendin x ray left hand, right shoulder and ct of the neck. Problem Qualifiers (1) CHF (congestive heart failure): Qualified Code: I50.21 - Acute systolic congestive heart failure (2) CAD (coronary artery disease): Qualified Code: I25.10 - Coronary artery disease involving [place] coronary artery of [place] heart without angina pectoris (3) Hepatitis C: (4) Cirrhosis: Qualified Code: K74.60 - Cirrhosis of liver with ascites, unspecified hepatic cirrhosis type (5) Fall: Qualified Code: W19.XXXA - Fall, initial encounter (6) Hypotension: Qualified Code: I95.9 - Hypotension, unspecified hypotension type Douglas Bhardwaj MD Aug 06, 2016 16:54
[2016-08-06] MEDS ORDERED: DEXTROSE 50% IN WATER 50 ML VIAL(D50) IV PUSH ONE (17:15)
[2016-08-06] MEDS ORDERED: oxyCODONE/ACETAMINOPHEN 5 MG/325 MG TAB PO PRN (17:15)
[2016-08-06] MEDS ORDERED: SODIUM CHLOR 0.9% 250 ML INJ 250 ML IV ONE (17:15)
[2016-08-06] MEDS: DEXTROSE 50% IN WATER 50 ML VIAL(D50) IV PRN ×2 (17:18→23:32)
[2016-08-06 20:00] VITALS: BP 78/50; PULSE 57; RESP 20; TEMP 96.5; O2SAT 94
[2016-08-06 20:06] VITALS: BP 78/50; PULSE 83; TEMP 94.1; O2SAT 97
--- NOTE | 2016-08-06 20:26 | RADRPT ---
EXAM DATE/TIME: 08/06/2016 20:03 [facility] COMPARISON: CHEST SINGLE AP, July 30, 2016, 12:07. INDICATIONS : Rule out fluid overload. Evaluate respiratory status. MEDICAL HISTORY : Hypercholesterolemia. Chronic obstructive pulmonary disease. Deep venousthrombosis. Thyroid disease. Myocardial infarction. Congestive heart failure. Coronary artery. Renal failure. Diabetes. Liver dise ase. Depression. Anxiety. Blood transfusion. SURGICAL HISTORY : Cholecystectomy.Tubal ligation. Coronary artery stent.Internal defibrillator. section. Appen dectomy. ENCOUNTER: Subsequent ACUITY: 1 day PAIN SCORE: Non-responsive. LOCATION: Bilateral chest FINDINGS: There is mild vascular congestion/pulmonary edema. A small pleural effusion is suspected on the left. Mild cardiomegaly is unchanged. No pneumothorax. Left subclavian transvenous cardiac pacer/defibrillator again seen with one lead. Right internal jugular line removed in the interim. CONCLUSION: Mild failure. Mild cardiomegaly unchanged. Bernabe Roth MD on August 06, 2016 at 20:23 Board Certified Radiologist. This report was verified electronically.
[2016-08-06 23:01] LABS: HEMATOCRIT 41.1 % (35.0-46.0); MEAN CELL VOLUME 78.4 FL (80.0-100.0); MEAN CORPUSCULAR HEMOGLOBIN 24.1 PG (27.0-34.0); MEAN CORPUSCULAR HGB CONC 30.7 % (32.0-36.0); PLATELET COUNT 59 TH/MM3 (150-450); RED BLOOD COUNT 5.24 MIL/MM3 (4.00-5.30); RED CELL DISTRIBUTION WIDTH 29.7 % (11.6-17.2); WHITE BLOOD COUNT 4.2 TH/MM3 (4.0-11.0)
[2016-08-06 23:03] LABS: HEMO FLAGS AUTO DIFF
[2016-08-06] MEDS ORDERED: DEXTROSE 50% IN WATER 50 ML VIAL(D50) IV PUSH PRN (23:15)
[2016-08-06] MEDS ORDERED: DEXTROSE 50% IN WATER 50 ML VIAL(D50) IV PRN (23:15)
[2016-08-06] MEDS ORDERED: GLUCAGON 1 MG/ML VIAL OTHER PRN (23:15)
[2016-08-06 23:21] LABS: ALT (GPT) 21 U/L (10-53); ANION GAP 12 MEQ/L (5-15); AST (GOT) 53 U/L (15-37); BICARBONATE 31.2 MEQ/L (21.0-32.0); BLOOD UREA NITROGEN 45 MG/DL (7-18); CHLORIDE 91 MEQ/L (98-107); GLOMERULAR FILTRATION RATE 33 ML/MIN (>89); MAGNESIUM 1.3 MG/DL (1.5-2.5); POTASSIUM 3.3 MEQ/L (3.5-5.1); SODIUM (NA) 134 MEQ/L (136-145)
[2016-08-06 23:24] LABS: ALKALINE PHOSPHATASE 44 U/L (45-117); TOTAL BILIRUBIN ADULT 3.6 MG/DL (0.2-1.0)
[2016-08-07] VITALS (13 sets, daily range): BP systolic 76–103; BP diastolic 42–68; PULSE 74–135; RESP 23–37; TEMP 97.2–101.3; O2SAT 0–100
[2016-08-07] LABS: BANDS 59 % (0-6); CORRECTED NUCLEATED RBC 2 /100 WBC (0-0); METAMYELOCYTES 1 % (0-1); POLYS (SEG NEUTROPHILS) 35 % (16-70); TARGET CELLS 1+ (NORMAL); TEARDROP RBCS 1+ (NORMAL); WBC DIFF SAMPLE 100
[2016-08-07 00:01] LABS: OVALOCYTES 1+ (NORMAL); PLATELET ESTIMATE SMEAR LOW (NORMAL); PLATELET MORPHOLOGY NORMAL (NORMAL); SCAN/DIFF FINAL DIFF MANUAL
[2016-08-07] MEDS: DEXTROMETHORPHAN SYRUP 7.5MG/5ML UDC PO PRN ×2 (00:02→12:32)
[2016-08-07] MEDS: RESP: ALBUTEROL 2.5 MG/IPRATROPIUM 0.5 MG NEB (PRN) NEB (04:18)
[2016-08-07 04:58] LABS: HEMATOCRIT 40.2 % (35.0-46.0); MEAN CELL VOLUME 77.4 FL (80.0-100.0); MEAN CORPUSCULAR HEMOGLOBIN 24.5 PG (27.0-34.0); MEAN CORPUSCULAR HGB CONC 31.7 % (32.0-36.0); PLATELET COUNT 64 TH/MM3 (150-450); RED CELL DISTRIBUTION WIDTH 29.4 % (11.6-17.2); WHITE BLOOD COUNT 4.2 TH/MM3 (4.0-11.0)
[2016-08-07 05:14] LABS: REVIEW FLAG FINAL
[2016-08-07 05:19] LABS: POTASSIUM 3.6 MEQ/L (3.5-5.1)
[2016-08-07] MEDS: LEVOTHYROXINE SODIUM 50 MCG TAB PO SCH (06:10)
[2016-08-07] MEDS: MIDODRINE 5 MG TAB PO SCH ×3 (06:10→17:00)
[2016-08-07] MEDS: DEXTROSE 50% IN WATER 50 ML VIAL(D50) IV PRN ×2 (06:16→10:04)
[2016-08-07] MEDS: INSULIN ASPART SUPPLEMENTAL SCALE SQ SCH ×4 (06:24→21:00)
--- NOTE | 2016-08-07 08:07 | HHI.PR ---
Subjective Remarks Patient in bed, says she can't walk, she is asking for a wheelchair and PT. Says she has pain from the fall. She is asking for pain meds. Her BP is into a lower side. She is noted very anxious and tachycardic. Discussed with the nurse , says she has same behavior during the night. Patient also complaints of sob,she is off NC at this time and she is trying to put it back on showing difficulty. Will consult PT/OT She is also noted anxious. She is also tachycardic. Her BP is low. Patient received bumex in the am. Will hold bumex. Give one bolus of 250 cc, and aditional bolus 500 cc NS, as SBP noted 70s, and MAP< 65. Patient with severe chf with elevated BNP. Also noted with low UOP. bladder scan with > [address]dson , monitor closely UOP. Will consult bariatric nurse. Discussed with the patient and nurse. Objective Vitals Vital Signs Date Time Temp Pulse Resp B/P Pulse Ox O2 Delivery O2 Flow Rate FiO2 08/07/16 06:00 125 08/07/16 04:00 120 08/07/16 04:00 97.2 120 23 103/65 97 08/07/16 02:00 115 08/07/16 00:00 97.7 114 25 91/68 97 08/07/16 00:00 110 08/06/16 20:06 94.1 83 78/50 97 08/06/16 20:00 96.5 57 20 78/50 94 08/06/16 12:49 96.5 114 19 81/54 95 I/O 08/06/16 08/06/16 08/06/16 08/07/16 08/07/16 08/07/16 07:00 15:00 23:00 07:00 15:00 23:00 Intake Total 100 ml Balance 100 ml Intake Oral 100 ml # Voids 4 1 3 # Bowel Movements 0 1 3 Result Diagram: 08/07/16 0437 08/07/16 043 Imaging Last Impressions Shoulder X-Ray 08/06/16 0000 Signed Impressions: Service Date/Time: July 09:49 - CONCLUSION: No acute disease. Richard Powell MD Hand X-Ray 08/06/16 0000 Signed Impressions: Service Date/Time: July 09:47 - CONCLUSION: No acute disease. Richard Powell MD Chest X-Ray 08/06/16 0000 Signed Impressions: Service Date/Time: July 20:03 - CONCLUSION: Mild failure. Mild cardiomegaly unchanged. Bernabe Roth MD Cervical Spine CT 08/06/16 0000 Signed Impressions: Service Date/Time: July 09:56 - CONCLUSION: No acute disease. Fused C2 and C3 vertebral bodies. Gopal Lovell MD Pelvis X-Ray 08/04/16 0000 Signed Impressions: Service Date/Time: Friday, August 05, 2016 04:17 - CONCLUSION: Unremarkable study. Julius Luna MD Lower Extremity Ultrasound 08/02/16 0000 Signed Impressions: Service Date/Time: Tuesday, August 02, 2016 19:32 - CONCLUSION: The study is negative for deep venous thrombosis bilateral lower extremity. Alan Burton MD Central Venous Line 07/31/16 0000 Signed Impressions: Service Date/Time: Sunday, July 31, 2016 00:00 - CONCLUSION: Uncomplicated Permcath removal. Sandor Perez MD Objective Remarks GENERAL: This is a well-nourished, well-developed patient, lethargic. SKIN: No rashes, ecchymoses or lesions. Cool and dry. HEAD: Atraumatic. Normocephalic. No temporal or scalp tenderness. EYES: Pupils equal round and reactive. Extraocular motions intact. No scleral icterus. No injection or drainage. ENT: Nose without bleeding, purulent drainage or septal hematoma. Throat without erythema, tonsillar hypertrophy or exudate. Uvula midline. Airway patent. NECK: Trachea midline. No JVD or lymphadenopathy. Supple, nontender, no meningeal signs. CARDIOVASCULAR: Regular rate and rhythm without murmurs, gallops, or rubs. RESPIRATORY: Diffuse bilateral inspiratory and expiratory wheezing improved from previous day. No rhonchi. Mild crackles at bases bilaterally. GASTROINTESTINAL: Abdomen soft, non-tender, nondistended. No hepato-splenomegaly , or palpable masses. No guarding. MUSCULOSKELETAL: Extremities without clubbing, cyanosis, (+) 1 edema. No joint tenderness, effusion, or edema noted. No calf tenderness. Negative Homans sign bilaterally. NEUROLOGICAL: Awake and alert. Cranial nerves II through XII intact. Motor and sensory grossly within normal limits. Five out of 5 muscle strength in all muscle groups. Normal speech. Procedures none A/P Problem List: (1) CHF (congestive heart failure) ICD Code: I50.9 Status: Chronic (2) CAD (coronary artery disease) ICD Code: I25.10 Status: Chronic (3) Type 2 diabetes mellitus with hyperglycemia, with long-term current use of insulin ICD Code: E11.65 Status: Acute (4) Acute kidney injury ICD Code: N17.9 Status: Acute (5) Hyperammonemia ICD Code: E72.20 Status: Acute (6) Hyponatremia ICD Code: E87.1 Status: Acute (7) Hepatitis C ICD Code: B19.20 Status: Chronic (8) Cirrhosis ICD Code: K74.60 Status: Chronic (9) COPD with acute exacerbation ICD Code: J44.1 Status: Resolved (10) Bilateral calf pain ICD Code: M79.661 Status: Resolved (11) Blurry vision, bilateral ICD Code: H53.8 Status: Acute (12) Fall ICD Code: W19.XXXA Status: Acute (13) Hypoglycemia due to insulin ICD Code: E16.0 Status: Acute (14) Hypotension ICD Code: I95.9 Status: Acute Assessment and Plan Acute on Chronic systolic heart failure. Initially treated with IV Lasix and spironolactone Echocardiogram performed on 07/21/16 showed a cavity size which was mildly to moderately dilated with severely reduced systolic function with an EF in 3-15-20 %. Diffuse hypokinesis. Moderate mitral valve regurgitation, moderate tricuspid regurgitation. Diuretics held due to rise in creatinine. 08/04 Nephrology consulted. Appreciate recommendations. Patient restarted on Lasix and will be switched to Bumex. 08/06 Bumex and her nocturnal due to hypotension. 08/07 Her BP is low. Patient received bumex in the am. Will hold bumex. Give one bolus of 250 cc, and aditional bolus 500 cc NS, as SBP noted 70s, and MAP< 65. Patient with severe chf with elevated BNP. Also noted with low UOP. bladder scan with > [address]on , monitor closely UOP. Will consult bariatric nurse. Discussed with the patient and nurse. CAD (coronary artery disease) Continue Aspirin. Cardiology has been consulted on previous admission. Type 2 diabetes mellitus with hyperglycemia, with long-term current use of insulin SSI with insulin Novolog, monitor accuchecks. Last hemoglobin A1c was 7.4 on 05/14. Diabetes is uncontrolled. 08/01 blood sugars elevated likely due to steroid use. 08/03 patient started on insulin Levemir 10 units subcutaneous at at bedtime. However blood sugar still uncontrolled. We'll increase Levemir to 10 units subcutaneous twice a day. 08/04 Patient has been refusing her insulin reinforced importance of compliance. Acute kidney injury Creatinine continues to trend down. Continue to monitor BUN/creatinine. Slides and O's, avoid nephrotoxins. 08/01 Creatinine increased from 1.2 to 1.9 with worsening DEL. I will hold lasix and give gentle IV fluids. Possible overdiuresis. 08/02 creatinine slightly worsened from 1.95-1.97. I will continue IV fluids and consult nephrology. I will increase normal saline to 100 mL per hour. Continue to monitor BUN/creatinine, strict I's and O's and avoid nephrotoxins. 08/04 appreciate nephrology recommendations. Diuretics resumed. Fu nephrology recommendations. 08/05 creatinine trending down, however patient still edematous continue diuresis as per nephrology. Hyperammonemia Plan: Continue Lactulose. Monitor ammonia - trending down and now with a normal level of 32. Hyponatremia Hypervolemic hyponatremia. Improving and sodium trending up. Continue w fluid restriction and Lasix. 08/01 Sodium trended down to 126 - due to overdiuresis? likely hypovolemic hyponatremia, sodium trending up and now 132. Continue to monitor BMP. 08/05 Sodium worst, due to hypervolemia - continue fluid restriction and diuresis. sodium improved at 136. Continue to monitor BMP. Hepatitis C Patient had a hepatitis C antibody reactive positive in April 2016 and has been evaluated by GI at the time. Cirrhosis Treated with diuresis initially. However patient hypotensive today. Will hold diuretics. COPD with acute exacerbation Patient is still coughing frequently. Chest pain likely secondary to frequent cough and likely musculoskeletal. EKG reviewed by me and done on shows sinus rhythm at 88 bpm without ischemic changes. Chest x-ray did not show any infiltrates. Q the patient has bilateral expiratory wheezing I will start the patient on IV Solu-Medrol. Will give 125 mg IV now and then we'll continue on 40 mg IV every 6 hours. I will also start the patient IV Levaquin. Will Rx dextromethorphan as needed for cough. Continue DuoNeb's every 6 hours while awake and then every 2 hours as needed for shortness of breath/wheezing. Continue supplemental oxygen. Will order incentive spirometry as well. 08/01 COPD improving but patient still with wheezing. Taper Solumedrol IV to 40 mg Q 8 hrs. Continue O2 to keep o2 sat >92%. Continue duoneb's nebs. Upon review of EMR Levaquin has not been administered and is scheduled for tomorrow. Will change to be given today. 08/02 COPD much improved - with Taper Solu-Medrol to 40 mg IV every 12 hours. Continue IV Levaquin, bronchodilators and supplemental oxygen as above. 08/03 I will discontinue IV Solu Medrol and start oral prednisone. Continue management as above. 08/04 Decrease prednisone dose down to 30 mg po daily. 08/05 continue steroid taper 08/06 decrease penicillin dose down to 20 mg by mouth daily Bilateral calf pain Bilateral lower extremity venous Dopplers negative for DVT. Blurry vision, bilateral Possibly secondary to elevated blood sugars. Will monitor if still present when sugars improved then will consult ophtalmology. Fall Patient fell on 08/04 on her buttocks as per RN patient is c/o pain in hip. Will check a pelvis x ray. 08/05 Patient c/o neck pain, left hand pain and right shoulder pain which started after she fell. Will obtain ct of the neck, left hand, and right shoulder. Continue pain control with percocet. 08/[address] [place] [address] of the neck, left hand x-ray and right shoulder x- ray did not show any fractures. Anxiety. Drug seeking behavior. Consult psychiatry Ativan prn. Discharge Planning Discharge pending improvement, nephrology clearance. Problem Qualifiers (1) CHF (congestive heart failure): Qualified Code: I50.21 - Acute systolic congestive heart failure (2) CAD (coronary artery disease): Qualified Code: I25.10 - Coronary artery disease involving [place] coronary artery of [place] heart without angina pectoris (3) Hepatitis C: (4) Cirrhosis: Qualified Code: K74.60 - Cirrhosis of liver with ascites, unspecified hepatic cirrhosis type (5) Fall: Qualified Code: W19.XXXA - Fall, initial encounter (6) Hypotension: Qualified Code: I95.9 - Hypotension, unspecified hypotension type Agnes Moe MD Aug 07, 2016 08:07
[2016-08-07] MEDS ORDERED: LORazepam 0.5 MG TAB PO PRN (08:15)
[2016-08-07] MEDS: predniSONE 20 MG TAB PO SCH (08:42)
[2016-08-07] MEDS: LEVOFLOXACIN 250 MG TAB PO SCH (08:42)
[2016-08-07] MEDS: PANTOPRAZOLE SOD 40 MG DELAYED RELEASE TAB PO SCH (08:42)
[2016-08-07] MEDS: ASPIRIN 81 MG CHEW TAB CHEW SCH (08:42)
[2016-08-07] MEDS: LORazepam 1 MG TAB PO PRN (08:43)
[2016-08-07] MEDS: BUMETANIDE INJ 1 MG/4 ML VIAL IV PUSH SCH (08:43)
[2016-08-07] MEDS: GABAPENTIN 300 MG CAP PO SCH ×2 (08:43→12:32)
[2016-08-07] MEDS: DOCUSATE SODIUM 50 MG/SENNA 8.6 MG TAB PO SCH ×2 (08:43→21:00)
[2016-08-07] MEDS: LACTULOSE SYRUP 20 GM/30 ML CUP PO SCH (08:43)
[2016-08-07] MEDS: SPIRONOLACTONE 25 MG TAB PO SCH (08:43)
[2016-08-07] MEDS: SODIUM CHLORIDE 0.9% FLUSH 10 ML FLUSH IV FLUSH SCH ×2 (08:43→21:00)
[2016-08-07] MEDS: CARVEDILOL 3.125 MG TAB PO SCH (08:43)
[2016-08-07] MEDS ORDERED: SODIUM CHLOR 0.9% 250 ML INJ 250 ML IV ONE (09:45)
[2016-08-07] MEDS: FERROUS SULFATE 325 MG (65 MG ELEMENTAL IRON) TAB PO SCH ×2 (11:16→17:00)
[2016-08-07] MEDS ORDERED: HALOPERIDOL LACTATE 5 MG/ML AMP IM PRN (11:30)
[2016-08-07] MEDS ORDERED: POTASSIUM CHLOR 40 MEQ PREMIX 100 ML IV PRN ×4 (11:30→14:15)
[2016-08-07] MEDS ORDERED: MAGNESIUM OXIDE 400 MG TAB PO PRN ×2 (11:30→14:15)
[2016-08-07] MEDS ORDERED: POTASSIUM PHOSPHATE MONOBASIC 500 MG TAB PO/TUBE PRN ×2 (11:30→14:15)
[2016-08-07] MEDS ORDERED: MAGNESIUM SULFATE INJ 4 GM in SODIUM CHLORIDE 0.9% INJ 92 ML IV PRN ×2 (11:30→14:15)
[2016-08-07] MEDS ORDERED: POTASSIUM PHOSPHATE MONOBASIC 500 MG TAB PO PRN ×2 (11:30→14:15)
[2016-08-07] MEDS ORDERED: SODIUM CHLORID 0.9% 500 ML INJ 500 ML IV ONE ×2 (11:30→18:45)
[2016-08-07] MEDS ORDERED: POTASSIUM CHLOR 20 MEQ PREMIX 100 ML IV PRN ×4 (11:30→14:15)
[2016-08-07] MEDS ORDERED: POTASSIUM CHLORIDE 25 MEQ EFFERVESCENT TAB PO PRN ×2 (11:30→14:15)
[2016-08-07] MEDS ORDERED: SODIUM PHOSPHATE INJ 30 MMOL in SODIUM CHLOR 0.9% 250 ML INJ 240 ML IV PRN ×2 (11:30→14:15)
[2016-08-07] MEDS ORDERED: MAGNESIUM SULFATE INJ 2 GM in SODIUM CHLORIDE 0.9% INJ 96 ML IV PRN ×2 (11:30→14:15)
[2016-08-07] MEDS ORDERED: POTASSIUM PHOSPHATE INJ 30 MMOL in SODIUM CHLOR 0.9% 250 ML INJ 250 ML IV PRN ×2 (11:30→14:15)
--- NOTE | 2016-08-07 11:31 | PD.CONS ---
Provisional Diagnosis Admission Date Jul 27, 2016 at 10:24 [place]. Brief psychotic disorder History of Present Illness Service Psychiatry Consult Requested By Simone Primary Care Physician Maranda Primary Care Physician HPI 45-year-old female with extensive medical problems including kidney disease, heart disease, pulmonary disease and diabetes. Patient reportedly anxious and drug-seeking. This physician spoke with the patient's nurse who does not find her to be drug seeking so much as hallucinating and paranoid. Upon interview, the patient herself indicates that she sees bugs. She is uncomfortable and complaining of pain. She also moans and mumbles incoherently. However she is oriented to person, place and situation. It does appear that there is some waxing and waning of mental status which is consistent with delirium. This physician feels that without a significant psychiatric history, it is most likely the patient is having an organic problem resulting from her multiple medical problems, leading to psychotic symptoms associated with delirium. Review of Systems ROS Limitations: Clinical Condition, Psychotic, Poor Historian Past Family Social History Coded Allergies: *MDRO Multi-Drug Resistant Organism (Verified Adverse Reaction, Unknown, ) MRSA (blood) - 06/13/16, 06/15/16 Active Scripts Ondansetron (Zofran)4 Mg Tab4 Mg PO Q6HR PRN (NAUSEA OR VOMITING) #12 TAB Ref 0 Prov:Carlos Barreto MD 07/14/16 Tramadol 50 Mg Tab50 Mg PO Q6H PRN (PAIN) #20 TAB Ref 0 Prov:Carlos Barreto MD 07/14/16 Spironolactone 25 Mg Tab25 Mg PO DAILY #30 TAB Ref 3 Prov:Karin Calle 06/30/16 Carvedilol 3.125 Mg Tab3.125 Mg PO Q12HR #60 TAB Ref 3 Prov:Karin Calle 06/30/16 Furosemide 20 Mg Tab20 Mg PO DAILY #30 TAB Ref 3 Prov:Karin Calle 06/30/16 Levothyroxine 50 Mcg Tab50 Mcg PO DAILY #30 TAB Ref 3 Prov:Karin Calle 06/30/16 Warfarin 4 Mg Tab4 Mg PO DAILY #30 TAB Ref 3 take one tablet daily this medicine needs daily pt and inr initially and follow with Primary Care physician INR goal 2 to 3 and hold for INR in 3 or over. Prov:Karin Calle 06/30/16 Lisinopril 5 Mg Tab2.5 Mg PO DAILY #30 TAB Ref 3 Prov:Karin Calle 06/30/16 Enoxaparin Inj (Lovenox Inj)120 Mg/0.8 Ml Xhl999 Mg SQ DAILY #5 SYRINGE Ref 0 use one amp on daily bases Hold Lovenox once INR in 2 or over. continue daily Warfarin. Prov:David Guthrie MD 06/26/16 Omeprazole 40 Mg Cap40 Mg PO DAILY #30 CAP Ref 0 Prov:David Guthrie MD 06/26/16 Lactulose Liq 10 Gm/15 Ml Soln30 Ml PO DAILY 30 Days Prov:David Guthrie MD 06/26/16 Reported Medications Aspirin 81 Mg Chew81 Mg CHEW DAILY Ref 0 07/27/16 Insulin Glargine Inj (Lantus Inj)1,000 Unit/10 Ml Vial1 Units SQ HS Ref 0 07/13/16 Nitroglycerin SL (Nitrostat SL)0.4 Mg Subl0.4 Mg SL DIRECTED PRN (CHEST PAIN ) #100 TAB.SL Ref 0 1 tablet under the tongue as needed for chest pain. Repeat every 5 minutes for a total of 3 DOSES or call 911 if NO relief. 06/30/16 Current Medications Medications (Trade) Dose Ordered Sig/Digna Route Start Time Stop Time Status Last Admin (NS Flush) 2 ml UNSCH PRN IV FLUSH 07/27/16 14:00 (NS Flush) 2 ml BID IV FLUSH 07/27/16 21:00 08/07/16 08:43 (Tylenol) 650 mg Q4H PRN PO 07/27/16 14:00 (Zofran Inj) 4 mg Q6H PRN IVP 07/27/16 14:00 (Mitzy-Colace) 1 tab BID PO 07/27/16 21:00 08/06/16 21:08 (Milk Of Magnesia Liq) 30 ml Q12H PRN PO 07/27/16 14:00 (Senokot) 17.2 mg Q12H PRN PO 07/27/16 14:00 (Dulcolax Supp) 10 mg DAILY PRN RECTAL 07/27/16 14:00 (Lactulose Liq) 30 ml DAILY PRN PO 07/27/16 14:00 (Aspirin Chew) 81 mg DAILY CHEW 07/28/16 09:00 08/07/16 08:42 (Coreg) 3.125 mg Q12HR PO 07/27/16 21:00 Hold 08/06/16 08:39 (Lactulose Liq) 30 ml DAILY PO 07/28/16 09:00 08/06/16 08:39 (Synthroid) 50 mcg DAILY@0600 PO 07/28/16 06:00 08/07/16 06:10 (Aldactone) 25 mg DAILY PO 07/28/16 09:00 08/07/16 08:43 (Ultram) 50 mg Q6H PRN PO 07/27/16 18:00 08/02/16 03:09 (Protonix) 40 mg DAILY PO 07/28/16 09:00 08/07/16 08:42 (Zofran Odt) 4 mg Q6H PRN PO 07/27/16 18:00 (Neurontin) 300 mg TID PO 07/29/16 09:00 08/07/16 08:43 (Mag-Al Plus Susp Liq) 30 ml Q6H PRN PO 07/28/16 19:30 (Proamatine) 10 mg TID@,, PO 07/29/16 12:00 08/07/16 11:16 (Ferrous Sulfate) 325 mg BID@,17 PO 07/30/16 17:00 08/07/16 11:16 (Robitussin La Pediatric Cough Liq) 7.5 mg Q6H PRN PO 07/31/16 16:15 08/07/16 00:02 (Ativan) 1 mg HS PRN PO 08/01/16 23:30 08/07/16 08:43 (Levaquin) 250 mg DAILY PO 08/04/16 09:00 08/07/16 08:42 (Bumex Inj) 2 mg BID@,18 IV PUSH 08/04/16 18:00 08/07/16 08:43 (Deltasone) 30 mg DAILY PO 08/05/16 09:00 08/07/16 08:42 (Pill Splitter) 1 ea UNSCH PRN OTHER 08/04/16 16:00 (Percocet 5-325 Mg) 1 tab Q6H PRN PO 08/06/16 17:15 (D50w (Vial) Inj) 50 ml UNSCH PRN IV 08/06/16 23:15 (Glucagon Inj) 1 mg UNSCH PRN OTHER 08/06/16 23:15 (D50w (Vial) Inj) 50 ml Q1H PRN IV PUSH 08/06/16 23:15 (Ativan) 0.5 mg Q6H PRN PO 08/07/16 08:15 Family History Denied for psychiatric illness. Social History Reported history of alcohol abuse but currently denied. Currently unemployed. Multiple medical problems leading to stressors and patient continues to smoke. Patient's Strengths (min. 2) Verbal and has access to healthcare. Physical Exam Vital Signs Vital Signs Date Time Temp Pulse Resp B/P Pulse Ox O2 Delivery O2 Flow Rate FiO2 08/07/16 08:00 99.0 130 24 91/54 96 I/O 08/06/16 08/06/16 08/07/16 08:00 16:00 00:00 Intake Total 100 ml Balance 100 ml Mental Status Examination Speech: Incoherent Orientation: x3 Memory: Unremarkable Thought Process: Loose Association Thought Content: Bizarre thinking, Paranoid Hallucination Type: Visual Attention and Concentration: Easily Distracted Suicidal Ideation: No Previous Suicide Attempts: No Homicidal Ideation: No Previous Homicide Attempts: No Insight: Fair Judgment: Unrealistic Affect: Anxious Affect if Inappropriate: Labile Mood: Anxious Motor Activity: Normal gait Assessment & Plan Problem List: (1) Brief psychotic disorder ICD Code: F23 Assessment & Plan Estimated LOS: days this physician notes the patient is on Ativan and Xanax already. Recommend discontinuing Xanax because the half life is so short it is likely to add to the patient's confusion and anxiety. This physician recommends the Ativan continue to be used for anxiety. However, we will write an order for antipsychotic medicine to be used on a when necessary basis for the patient's hallucinations and associated anxiety. This physician must pick a potent antipsychotic to avoid further exacerbating the patient's low blood pressure. Mikey Robledo MD Aug 07, 2016 11:30
[2016-08-07 12:53] LABS: MAGNESIUM 1.4 MG/DL (1.5-2.5)
[2016-08-07] MEDS ORDERED: ALBUMIN HUMAN 25% 25 GM/100 ML BAGP IV ONE ×2 (13:00→17:00)
--- NOTE | 2016-08-07 13:21 | RADRPT ---
EXAM DATE/TIME: 08/07/2016 12:31 [facility] COMPARISON: CHEST SINGLE AP, August 06, 2016, 20:03. INDICATIONS : Short of breath. MEDICAL HISTORY : Chronic obstructive pulmonary disease. Hypercholesterolemia. Deep venous thrombosis. Myocardial i nfarction, Congestive heart failure, renal failure, diabetes, liver disease SURGICAL HISTORY : Coronary artery stent. Pacemaker. ENCOUNTER: Subsequent ACUITY: 3 weeks PAIN SCORE: Non-responsive. LOCATION: Bilateral chest FINDINGS: There is improvement with less interstitial edema. Heart remains enlarged. Pacer is implanted on th e left. CONCLUSION: Interval improvement with less edema. Reginald Atkinson MD FACR on August 07, 2016 at 13:15 Board Certified Radiologist. This report was verified electronically.
--- NOTE | 2016-08-07 13:36 | HHI.NPPN ---
Subjective General Problems: Edema, Heart Disease, Hypotension Renal Failure: Chronic, Acute Interval History She was transferred to [facility] due to hypotension, tachycardia, and hypoglycemia. Renal function is stable. Donaldson placed, she is making fair amount of urine. ( Leah Kirkpatrick) Review of Systems Respiratory Lungs: SOB (Leah Kirkpatrick) Cardiovascular Cardiac: Edema (Leah Kirkpatrick) Musculoskeletal MS: Pain/Stiffness (Leah Kirkpatrick) Objective Data Data 08/06/16 08/07/16 19:00 07:00 # Voids 1 3 # Bowel Movements 1 3 Vital Signs Date Time Temp Pulse Resp B/P Pulse Ox O2 Delivery O2 Flow Rate FiO2 08/07/16 12:00 101.3 126 28 85/48 95 08/07/16 08:00 99.0 130 24 91/54 96 08/07/16 07:00 135 08/07/16 06:00 125 08/07/16 04:00 120 08/07/16 04:00 97.2 120 23 103/65 97 08/07/16 02:00 115 08/07/16 00:00 97.7 114 25 91/68 97 08/07/16 00:00 110 08/06/16 20:06 94.1 83 78/50 97 08/06/16 20:00 96.5 57 20 78/50 94 (Leah Kirkpatrick) -: 08/07/16 0437 08/07/16 0437 Imaging Last Impressions Shoulder X-Ray 08/06/16 0000 Signed Impressions: Service Date/Time: July 09:49 - CONCLUSION: No acute disease. Richard Powell MD Hand X-Ray 08/06/16 0000 Signed Impressions: Service Date/Time: July 09:47 - CONCLUSION: No acute disease. Richard Powell MD Chest X-Ray 08/06/16 0000 Signed Impressions: Service Date/Time: July 20:03 - CONCLUSION: Mild failure. Mild cardiomegaly unchanged. Bernabe Roth MD Cervical Spine CT 08/06/16 0000 Signed Impressions: Service Date/Time: July 09:56 - CONCLUSION: No acute disease. Fused C2 and C3 vertebral bodies. Gopal Lovell MD Pelvis X-Ray 08/04/16 0000 Signed Impressions: Service Date/Time: Friday, August 05, 2016 04:17 - CONCLUSION: Unremarkable study. Julius Luna MD Lower Extremity Ultrasound 08/02/16 0000 Signed Impressions: Service Date/Time: Tuesday, August 02, 2016 19:32 - CONCLUSION: The study is negative for deep venous thrombosis bilateral lower extremity. Alan Burton MD Central Venous Line 07/31/16 0000 Signed Impressions: Service Date/Time: Sunday, July 31, 2016 00:00 - CONCLUSION: Uncomplicated Permcath removal. Sandor Perez MD Tubes & Lines: Donaldson (Leah Kirkpatrick B. DEALER COMPLIANCE REPRESENTATIVE) Physical Exam General Appearance: Well Developed, No Acute Distress, Comfortable, Malnourished Appearance Remarks awake, groggy (Leah Kirkpatrick B. DEALER COMPLIANCE REPRESENTATIVE) Eyes Eye Exam: Pupils Equal (Leah Kirkpatrick B. DEALER COMPLIANCE REPRESENTATIVE) Throat Throat Exam: Oral Mucosa Coggon & Moist (CasimiroLeah B. DEALER COMPLIANCE REPRESENTATIVE) Pulmonary Resp Exam: Breath Sounds Equal, Crackles (Leah Kirkpatrick B. DEALER COMPLIANCE REPRESENTATIVE) Cardiology CV Exam: Regular, Normal Sinus Rhythm, Murmur CV Remarks AICD left chest (Leah Kirkpatrick B. DEALER COMPLIANCE REPRESENTATIVE) Gastrointestinal/Abdomen GI Exam: Soft, Non-Tender, Bowel Sounds Present (Leah Kirkpatrick B. DEALER COMPLIANCE REPRESENTATIVE) Musculoskeletal MS Exam: Joints Intact, Normal Tone (CasimiroLeah B. DEALER COMPLIANCE REPRESENTATIVE) Integumentary Skin Exam: Clear, Warm, Dry, Intact (CasimiroLeah B. DEALER COMPLIANCE REPRESENTATIVE) Extremeties Extremities Exam: Pedal Pulses Palpable, Moderate Edema, Pitting Edema, Dependent Edema Extremeties Remarks edema improved, now 2+ (Leah Kirkpatrick B. DEALER COMPLIANCE REPRESENTATIVE) Neurologic Neuro Exam: Alert, Awake, Oriented, Speech Clear, Moving All Extremities ( Leah Kirkpatrick B. DEALER COMPLIANCE REPRESENTATIVE) Psychiatric Psych Exam: Appropriate Responses (Leah Kirkpatrick BRamez DEALER COMPLIANCE REPRESENTATIVE) Assessment/Plan Discussed Condition With: Patient Assessment Summary: DEL/Acute Renal Failure, Fluid/Volume Overload, CHF, Hypotension Electrolyte Assessment: Hyponatremia Problem List: (1) Acute kidney injury Plan: on CKD, with baseline creatinine 1.2-1.3 from last month DEL due to renal hypoperfusion from decompensated heart failure and hypotension renal function is stable continue midodrine TID, avoid hypotension, may need pressure support continue diuresis as below she is nonoliguric , donaldson placed and had 200ml return immediately obtain daily renal panel , phosphorus corrected; magnesium to be replaced avoid IVF, nephrotoxic agents (2) Hyponatremia Plan: hypervolemic stable continue diuresis and fluid restriction (3) Fluid overload Plan: due to advanced and decompensated heart failure EF 15-20% edema much improved, stop Bumex, change to PO Lasix 40 daily beginning tomorrow continue Spironolactone 25 mg daily cardiology has been reconsulted (4) Hypotension Plan: she is on Midrdrine 10 mg TID given 250 ml IVF bolus that initially worked, but the blood pressure later dropped coreg has been held reduce diuretics as below (5) Type 2 diabetes mellitus with hyperglycemia, with long-term current use of insulin Plan: she has had labile blood sugars recently hypoglycemic encouraged oral intake (Leah Kirkpatrick) Plan patient was seen and examined. Agree with above assessment and plan. (Jevon Villaseñor MD) Problem Qualifiers (1) Hypotension: Qualified Code: I95.9 - Hypotension, unspecified hypotension type Leah Kirkpatrick Aug 07, 2016 13:36 Jevon Villaseñor MD Aug 07, 2016 14:55
--- NOTE | 2016-08-07 14:06 | PD.CONS ---
[facility] Service Critical Care Medicine Consult Requested By Dr. Moe Reason for Consult Hypotension Atrial fibrillation with RVR Encephalopathy Primary Care Physician No Primary Care Physician History of Present Illness Patient is a 45-year-old female with a past medical history significant for chronic systolic heart failure with an EF of 15-20% on echocardiogram 03/25/16, status post AICD placement, COPD, hepatitis C, cirrhosis, CKD stage III, bilateral PEs diagnosed in March 2016 on Coumadin. Patient presented to the emergency department with increasing shortness of breath, along with increasing pedal edema. Patient was admitted to the hospitalist service, and was placed on IV Lasix and Aldactone was continued. With worsening creatinine nephrology also was consulted. Overnight patient was moved to the ICU for hypotension and atrial fibrillation with rapid ventricular response. Critical care medicine was consulted for persistent hypotension despite fluid boluses. I evaluated the patient in the ICU. Systolic blood pressure is from 85-90 and patient is normally hypertensive. Heart rate is in 130s. I have placed her on Sandro-Synephrine infusion and ordered Cardizem drip for rate control. Spiked fever up to 101.3, most likely getting septic. Empirically started on cefepime and Flagyl, and 1 dose of vancomycin. A bedside ultrasound shows no ascites Review of Systems ROS Limitations: Other (as per [facility]) Past Family Social History Allergies: Coded Allergies: *MDRO Multi-Drug Resistant Organism (Verified Adverse Reaction, Unknown, ) MRSA (blood) - 06/13/16, 06/15/16 Past Medical History Hepatitis C Chronic kidney disease stage III Liver cirrhosis Hypertension Hyperlipidemia Coronary artery disease status post cardiac stent Chronic systolic heart failure COPD Insulin-dependent diabetes mellitus Hypothyroidism Past Surgical History AICD placement 3 Tubal ligation Cholecystectomy Reported Medications Zofran (Ondansetron HCl) 4 Mg Tab 4 Mg PO Q6HR PRN Tramadol (Tramadol HCl) 50 Mg Tab 50 Mg PO Q6H PRN Spironolactone 25 Mg Tab 25 Mg PO DAILY Carvedilol 3.125 Mg Tab 3.125 Mg PO Q12HR Furosemide 20 Mg Tab 20 Mg PO DAILY Levothyroxine (Levothyroxine Sodium) 50 Mcg Tab 50 Mcg PO DAILY Warfarin 4 Mg Tab 4 Mg PO DAILY Lisinopril 5 Mg Tab 2.5 Mg PO DAILY Lovenox Inj (Enoxaparin Sodium) 120 Mg/0.8 Ml Syr 120 Mg SQ DAILY Omeprazole 40 Mg Cap 40 Mg PO DAILY Lactulose Liq (Lactulose) 10 Gm/15 Ml Soln 30 Ml PO DAILY 30 Days Aspirin 81 Mg Chew 81 Mg CHEW DAILY Lantus Inj (Insulin Glargine) 1,000 Unit/10 Ml Vial 1 Units SQ HS Nitrostat SL (Nitroglycerin) 0.4 Mg Subl 0.4 Mg SL DIRECTED PRN Active Ordered Medications Reviewed Family History Reviewed Social History Past smoker. No alcohol use Physical Exam Vital Signs Vital Signs Date Time Temp Pulse Resp B/P Pulse Ox O2 Delivery O2 Flow Rate FiO2 08/07/16 12:00 101.3 126 28 85/48 95 08/07/16 08:00 99.0 130 24 91/54 96 08/07/16 07:00 135 08/07/16 06:00 125 08/07/16 04:00 120 08/07/16 04:00 97.2 120 23 103/65 97 08/07/16 02:00 115 08/07/16 00:00 97.7 114 25 91/68 97 08/07/16 00:00 110 08/06/16 20:06 94.1 83 78/50 97 08/06/16 20:00 96.5 57 20 78/50 94 Physical Exam GENERAL: This is a well-nourished, well-developed patient, somnolent, wakes up easily SKIN: No rashes, ecchymoses or lesions. Cool and dry. HEAD: Atraumatic. Normocephalic. EYES: Pupils equal round and reactive. Extraocular motions intact. Mild scleral icterus. ENT: Uvula midline. Airway patent. NECK: Trachea midline. No JVD or lymphadenopathy. Supple, nontender, no meningeal signs. CARDIOVASCULAR: AFIB with RVR without murmurs, gallops, or rubs. RESPIRATORY: Air entry equal bilaterally. No rhonchi. Mild crackles at bases bilaterally. GASTROINTESTINAL: Abdomen soft, tenderness in the epigastric region. MUSCULOSKELETAL: Extremities 1+ edema. NEUROLOGICAL: Motor and sensory grossly within normal limits. Delirious, but alert and oriented intermittently. Laboratory Laboratory Tests Test 08/06/16 08/07/16 22:45 04:37 Sodium Level 134 131 Potassium Level 3.3 3.6 Chloride Level 91 89 Carbon Dioxide Level 31.2 29.0 Anion Gap 12 13 Blood Urea Nitrogen 45 47 Creatinine 1.66 1.67 Estimat Glomerular Filtration 33 33 Rate Random Glucose 59 69 Calcium Level 8.4 8.7 Magnesium Level 1.3 1.4 Total Bilirubin 3.6 Aspartate Amino Transf 53 (AST/SGOT) Alanine Aminotransferase 21 (ALT/SGPT) Alkaline Phosphatase 44 Ammonia LESS THAN 10 B-Type Natriuretic Peptide GREATER THAN 5000 Total Protein 5.1 Albumin 1.7 White Blood Count 4.2 4.2 Red Blood Count 5.24 5.20 Hemoglobin 12.6 12.7 Hematocrit 41.1 40.2 Mean Corpuscular Volume 78.4 77.4 Mean Corpuscular Hemoglobin 24.1 24.5 Mean Corpuscular Hemoglobin 30.7 31.7 Concent Red Cell Distribution Width 29.7 29.4 Platelet Count 59 64 Mean Platelet Volume 8.5 8.8 Neutrophils (%) (Auto) Lymphocytes (%) (Auto) Monocytes (%) (Auto) Eosinophils (%) (Auto) Basophils (%) (Auto) Neutrophils # (Auto) Lymphocytes # (Auto) Monocytes # (Auto) Eosinophils # (Auto) Basophils # (Auto) CBC Comment AUTO DIFF Differential Total Cells 100 Counted Neutrophils % (Manual) 35 Band Neutrophils % 59 Lymphocytes % 3 Monocytes % 2 Neutrophils # (Manual) 4.0 Metamyelocytes 1 Nucleated Red Blood Cells 2 Differential Comment FINAL DIFF MANUAL Platelet Estimate LOW Platelet Morphology Comment NORMAL Target Cells 1+ Tear Drop Cells 1+ Ovalocytes 1+ Phosphorus Level 2.8 Result Diagram: 08/07/1643608/07/16436 Imaging CXR improving pulmonary edema Septic Shock Reassessment Heart: Irregular Lungs: Course Skin: Warm, Dry Peripheral Pulses: Weak Right Radial Weak Left Radial Capillary Refill: <2 seconds Assessment and Plan Assessment and Plan NEURO: Metabolic encephalopathy most likely from sepsis -Monitor neuro status closely. Ammonia level normal -Use PRN Ativan for anxiety, agitation RESP: COPD History of pulmonary embolism approximately 6 months ago -DuoNeb every 6 hours and when necessary -Hold prednisone start stress dose steroids -INR is 1.8, hold off full anticoagulation until platelet count >90 CV: Hypotension/Shock New Atrial fibrillation with rapid ventricular response Cardiomyopathy EF 15-20% Status post AICD -Start Sandro-Synephrine infusion (tachycardic). Hold all antihypertensives -IV albumin 25 g every 12 -Cardizem infusion to keep heart rate less than -Hold aspirin due to thrombocytopenia -DC Lasix and hold Aldactone -Check lactic acid GI: Liver cirrhosis Hepatitis C -ADA, renal diet -Protonix for GI prophylaxis : Acute on chronic kidney disease -Nephrology following Lasix dose reduced, will hold due to new onset sepsis, hypotension -Blair catheter. Acute renal failure workup. ID: Septic shock new Fever -Empiric antibiotics with cefepime and Flagyl and 1 dose of Vanc -Stress dose steroids -Cristobal culture -SBP is possible but there is not ascitic fluid to tap HEME: On chronic Coumadin Thrombocytopenia -INR was 2.2, on 07/30. 1.[address] on full anticoagulation due to thrombocytopenia -Thrombocytopenias most likely from sepsis, check HIT panel ENDO: Type 2 diabetes Hypothyroidism -Continue sliding scale insulin -Continue Synthroid PROPH: -Bilateral lower extremity SCDs. IV Protonix. -No anticoagulation at this time due to thrombocytopenia LINES: -Place central line CC time 55 min Code Status Full Discussed Condition With Tiffany Lomax MD Aug 07, 2016 14:06
[2016-08-07] MEDS ORDERED: DILTIAZEM HCL 25 MG/5 ML VIAL IVP ONE (14:15)
[2016-08-07] MEDS ORDERED: TERBUTALINE INJ 1 MG/ML AMP SQ PRN ×2 (14:15→17:00)
[2016-08-07] MEDS ORDERED: DILTIAZEM INJ 125 MG in SODIUM CHLORIDE 0.9% INJ 100 ML IV SCH (14:15)
[2016-08-07 14:43] LABS: HEPARIN AB OD 0.057 O.D. (0.000-0.300); HEPARIN INDUCED PLATELET AB NEGATIVE (NEGATIVE)
[2016-08-07] MEDS: MAGNESIUM SULFATE 1 GM PREMIX 100 ML IV SCH ×2 (14:50→16:00)
[2016-08-07] MEDS ORDERED: PHENYLEPHRINE INJ 40 MG in DEXTROSE 5% IN WATE 500 ML INJ 496 ML IV SCH ×2 (15:15)
[2016-08-07] MEDS ORDERED: LORazepam 2 MG/ML VIAL IV PUSH ONE (16:00)
[2016-08-07] MEDS ORDERED: PHENYLEPHRINE HCL 160 MG/D5W 484 ML ADMIX IV SCH ×2 (16:00)
[2016-08-07 16:21] LABS: INTERNATIONAL NORMALIZED RATIO 1.8 RATIO; PROTHROMBIN TIME - PATIENT 20.9 SEC (9.8-11.6)
--- NOTE | 2016-08-07 16:37 | PD.PROCEDR ---
Central Line Procedure REASON FOR PROCEDURE Central venous access PROCEDURE PERFORMED Central line placement: Right IJ central line CONSENT Informed consent for procedure was obtained and time out performed ANESTHESIA Local injection of 1% Lidocaine DESCRIPTION OF THE PROCEDURE The patient was placed in supine, mild Trendelenburg position. The area was exposed and cleansed with ChloraPrep, times two. Large sterile drape was used to cover the patient, with the site exposed, under sterile conditions including cap, face mask, sterile gown, and sterile gloves. On single attempt, the introducer needle was inserted with negative pressure in syringe and venous flash was obtained. The guide wire was then advanced without any restriction and the needle was removed. The dilator was used without any complications. Using Seldinger technique the 20 cm triple lumen abx coated catheter was advanced over the guide wire to a depth of 16 centimeters. The guide wire was removed. All ports were aspirated with dark venous blood return and flushed easily with sterile saline. All ports were capped. Antibiotic disc was placed around central line at puncture site. The central line was secured to the skin with two interrupted 2.0 silk sutures. The area was bandaged with sterile see- through central line bandage. RADIOLOGICAL DATA Ultrasound guidance was used to locate RIJ. COMPLICATIONS: No apparent complications ESTIMATED BLOOD LOSS: Less than 1 cc. Tiffany Kidd MD Aug 07, 2016 16:37
[2016-08-07] MEDS ORDERED: VANCOMYCIN INJ 1,000 MG in SODIUM CHLOR 0.9% 250 ML INJ 250 ML IV ONE (17:00)
[2016-08-07] MEDS ORDERED: ALBUMIN HUMAN 25% 25 GM/100 ML BAGP IV SCH (17:00)
[2016-08-07] MEDS: metroNIDAZOLE 500 MG INJ 100 ML IV SCH ×2 (17:03→23:22)
[2016-08-07] MEDS: CEFEPIME INJ 1,000 MG in SODIUM CHLORIDE 0.9% INJ 100 ML IV SCH ×2 (17:04→23:22)
[2016-08-07] MEDS ORDERED: DOBUTamine INJ 1,000 MG in DEXTROSE 5% IN WATER INJ 170 ML IV SCH ×2 (17:15)
[2016-08-07] MEDS: NOREPINEPHRINE INJ 4 MG in SODIUM CHLOR 0.9% 250 ML INJ 246 ML IV SCH ×2 (17:27→19:00)
--- NOTE | 2016-08-07 17:27 | RADRPT ---
EXAM DATE/TIME: 08/07/2016 16:29 [facility] COMPARISON: CHEST SINGLE AP, August 07, 2016, 12:31. INDICATIONS : Evaluate for central line placement. MEDICAL HISTORY : Chronic obstructive pulmonary disease. Hypercholesterolemia. Deep venous thrombosis. Myocardial infar ction, Congestive heart failure, renal failure, diabetes, liver disease. SURGICAL HISTORY : Coronary artery stent. Pacemaker. ENCOUNTER: Subsequent ACUITY: 1 day PAIN SCORE: Non-responsive. LOCATION: chest FINDINGS: The heart is enlarged. There is a transvenous pacer in place. There is a right jugular line in good p osition. There is diffuse interstitial prominence suggesting congestive failure. This appears similar to the p revious exam. The bony structures are grossly intact. CONCLUSION: 1. Cardiomegaly. There is interstitial prominence suggesting congestive failure. Exam is stable jerrica red to previous. Ricky Atkinson MD on August 07, 2016 at 17:25 Board Certified Radiologist. This report was verified electronically.
[2016-08-07] MEDS: HYDROCORTISONE SOD SUCCINATE 250 MG VIAL IV SCH ×2 (17:52→23:23)
[2016-08-07 18:12] LABS: BLOOD GAS BASE EXCESS -7.5 mmol/L (-2-2); BLOOD GAS CARBOXYHEMOGLOBIN 2.6 % (0-4); BLOOD GAS HCO3 17 mmol/L (22-26); BLOOD GAS METHEMOGLOBIN 0.8 % (0-2); BLOOD GAS O2 HGB SATURATION 85 % (90-100); BLOOD GAS OXYGEN CONTENT 11.7 Vol % (12.0-20.0); BLOOD GAS PCO2 29 mmHg (38-42); BLOOD GAS PO2 60 mmHg (61-120); BLOOD GAS TOTAL HGB 9.7 G/DL (12.0-16.0); CRITICAL VALUE YES; TEMP CORR TO 98.6
[2016-08-07 18:13] LABS: DRAW SITE RT RADIAL; LITER FLOW 5 L/M; NUMBER OF ARTERIAL PUNCTURES 1; OXYGEN DEVICE NASAL CANNULA; STAT YES; ULNAR PULSE PRESENT
[2016-08-07 18:14] LABS: BLOOD GAS VENOUS BASE EXCESS -7.1 mmol/L (-2-2); BLOOD GAS VENOUS HCO3 18 mmol/L (22-26); BLOOD GAS VENOUS O2 CONTENT 6.6 Vol % (9.0-17.0); BLOOD GAS VENOUS O2 HGB SAT 49 % (70-76); BLOOD GAS VENOUS PCO2 36 mmHg (44-48); BLOOD GAS VENOUS PO2 33 mmHg (35-40); BLOOD GAS VENOUS pH 7.32 (7.360-7.400); CRITICAL VALUE YES; DRAW SITE NURSE; LITER FLOW 5 L/M; OXYGEN DEVICE NASAL CANNULA; STAT YES; TEMP CORR TO 98.6
--- NOTE | 2016-08-07 18:20 | PD.PROCEDR ---
Procedure Note Procedure Right radial art line placement Procedure: Right forearm appropriately positioned and, under full sterile precautions right radial art line was placed in a single attempt using Seldinger technique. Patient tolerated procedure well and blood loss was less than 1 ml. Tiffany Kidd MD Aug 07, 2016 18:20
[2016-08-07] MEDS ORDERED: ETOMIDATE 20 MG/10 ML VIAL ONE (18:52)
[2016-08-07 19:43] LABS: BLOOD GAS BASE EXCESS -12.9 mmol/L (-2-2); BLOOD GAS CARBOXYHEMOGLOBIN 2.4 % (0-4); BLOOD GAS HCO3 12 mmol/L (22-26); BLOOD GAS METHEMOGLOBIN 0.5 % (0-2); BLOOD GAS O2 HGB SATURATION 95 % (90-100); BLOOD GAS PCO2 26 mmHg (38-42); BLOOD GAS PO2 109 mmHg (61-120); BLOOD GAS TOTAL HGB 8.1 G/DL (12.0-16.0); TEMP CORR TO 98.6
[2016-08-07 19:44] LABS: CRITICAL VALUE YES; DRAW SITE ART LINE; FIO2 100 %; OXYGEN DEVICE VENTILATOR; STAT YES; VENT SETTINGS AC/16/550/PEEP 5
[2016-08-07] MEDS ORDERED: SODIUM BICARBONATE 8.4% INJ 50 ML ONE (19:46)
[2016-08-07] MEDS ORDERED: HALOPERIDOL LACTATE 5 MG/ML AMP IV PRN (20:00)
--- NOTE | 2016-08-07 20:20 | RADRPT ---
EXAM DATE/TIME: 08/07/2016 19:06 [facility] COMPARISON: CHEST SINGLE AP, August 07, 2016, 16:29. INDICATIONS : Status post intubation. MEDICAL HISTORY : Chronic obstructive pulmonary disease. Hypercholesterolemia. Deep venous thrombosis. Myocardial infar ction, Congestive heart failure, renal failure, diabetes, liver disease. SURGICAL HISTORY : Coronary artery stent. Pacemaker. ENCOUNTER: Initial ACUITY: 1 day PAIN SCORE: Non-responsive. LOCATION: chest FINDINGS: Single AP view of the chest. Endotracheal tube canal and placed with the tip in the proximal right ma instem bronchus. Right IJ central venous catheter and AICD again seen. Lung volumes are low. New mild patchy opacity in the right midlung. No evidence of pleural effusion or pneumothorax. Cardiac silhou ette is enlarged but unchanged. CONCLUSION: Endotracheal tube tip in the right mainstem bronchus and could be retracted several centimeters. Mild patchy right midlung opacity is new. Tony Clarke MD on August 07, 2016 at 20:15 Board Certified Radiologist. This report was verified electronically.
[2016-08-07] MEDS ORDERED: EPINEPHrine 4 MG/D5W 250 ML IV SCH ×2 (20:30)
[2016-08-07] MEDS ORDERED: PHENYLEPHRINE HCL 80 MG/D5W 492 ML ADMIX IV SCH ×2 (20:30)
--- NOTE | 2016-08-07 20:37 | MB ---
cc: LEAH ANN M.D. DATE OF CONSULTATION: 08/07/2016. HISTORY OF PRESENT ILLNESS: Chantal is a 45-year-old lady with history of bilateral pulmonary emboli, cirrhosis, cardiomyopathy, ejection fraction of 15-20% as a March 25, 2016 status post ICD, hepatitis C, stage III chronic renal insufficiency, COPD. Consult was obtained for atrial fibrillation and rapid ventricular response with hypotension. The patient is currently sedated, possibly obtunded with hypotension requiring Sandro-Synephrine and Levophed drip. REVIEW OF SYSTEMS: A review of systems is unobtainable due to the patient's altered mental status. She has had a recent T-max of 101.3. PAST MEDICAL HISTORY: The past medical history is as per the history of present illness. 1. History of hypertension. 2. Hyperlipidemia. 3. Status post percutaneous coronary intervention. 4. Insulin-dependent diabetes mellitus. 5. Hypothyroidism. 6. Cholecystectomy. SOCIAL HISTORY: Previous smoker and denies alcohol use. MEDICATIONS: 1. Sandro-Synephrine drip. 2. Levophed drip. 3. Cardizem drip. 4. Haldol. 5. Dobutamine. 6. Vancomycin. 7. Hydrocortisone 100 q.8 h IV. 8. Cefepime. 9. Metronidazole. 10. Terbutaline. 11. Potassium supplementation. 12. Magnesium supplementation. PHYSICAL EXAMINATION: VITAL SIGNS: Blood pressure 85/48, pulse 126, temperature 101.3, respiratory rate 28. GENERAL: She is nonfocal but minimally responsive per the nurse at the bedside the patient has been recently sedated. NECK: The neck is supple. No jugular venous distention. No bruits. CARDIOVASCULAR EXAM: S1 and S2. No murmurs, rubs or gallops. LUNGS: Clear to auscultation bilaterally. ABDOMEN: The abdomen is soft, nontender and nondistended with positive bowel sounds. EXTREMITIES: No lower extremity edema. LABORATORY DATA: White count 4.2, hemoglobin 12.7, hematocrit 40.2, platelet count 64. Sodium 131, potassium 3.6, chloride 89, BUN 47, creatinine 1.67, lactic acid 13.7, magnesium 1.4, ammonia level is less than 10. INR is 1.8. IMAGING STUDIES: Chest x-ray today shows cardiomegaly. There is interstitial prominence suggesting congestive heart failure. EKGS: EKG done on 07/30/2016 shows normal sinus rhythm at 88 beats per minute and late R-wave transition. DIAGNOSIS: 1. Probable sepsis. 2. Hypertension. 3. Lactic acidosis. 4. Cirrhosis. 5. Chronic renal insufficiency. 6. Hepatitis C 7. Thrombocytopenia. 8. Pulmonary emboli. 9. Hypomagnesemia. 10. Hyponatremia. 11. Cardiomyopathy. DISCUSSION: The patient has multiorgan failure and probable sepsis. Agree with supportive care with pressors as needed. Anticoagulation held due to coagulopathy by Dr. Kidd. The prognosis appears to be poor. Antibiotics per Dr. Kidd. Will continue to follow. MD CASANDRA Alves/JCRaquel /5:40 PM /8:30 PM
[2016-08-07] MEDS ORDERED: fentaNYL DRIP 250 ML IV SCH (20:45)
[2016-08-07] MEDS ORDERED: MIDAZOLAM 100 MG/ML INJ 100 ML IV SCH (20:45)
[2016-08-07] MEDS ORDERED: EPINEPHrine (1:1000) INJ 2 MG in DEXTROSE 5% IN WATER INJ 248 ML IV SCH ×2 (21:15)
[2016-08-07 21:22] LABS: AUTOMATED NEUTROPHIL # 10.1 TH/MM3 (1.8-7.7); BASOPHIL % 0.2 % (0.0-2.0); EOSINOPHIL % 0.1 % (0.0-4.0); HEMATOCRIT 32.4 % (35.0-46.0); LYMPH % 3.5 % (9.0-44.0); LYMPHOCYTE # 0.4 TH/MM3 (1.0-4.8); MEAN CELL VOLUME 79.5 FL (80.0-100.0); MEAN CORPUSCULAR HEMOGLOBIN 24.6 PG (27.0-34.0); MEAN CORPUSCULAR HGB CONC 30.9 % (32.0-36.0); MONO % 0.8 % (0.0-8.0); NEUT % 95.4 % (16.0-70.0); PLATELET COUNT 51 TH/MM3 (150-450); RED BLOOD COUNT 4.08 MIL/MM3 (4.00-5.30); RED CELL DISTRIBUTION WIDTH 30.4 % (11.6-17.2); WHITE BLOOD COUNT 10.6 TH/MM3 (4.0-11.0)
[2016-08-07 21:45] LABS: HEMO FLAGS AUTO DIFF
[2016-08-07] MEDS: NOREPINEPHRINE INJ 8 MG in SODIUM CHLOR 0.9% 250 ML INJ 242 ML IV SCH (22:00)
[2016-08-07] MEDS ORDERED: SODIUM BICARBONATE 8.4% INJ 150 MEQ in DEXTROSE 5% IN WATE 1000ML INJ 1,000 ML IV SCH ×2 (22:00)
[2016-08-07 22:05] LABS: BICARBONATE 15.5 MEQ/L (21.0-32.0); CALCIUM-PROTEIN CORRECTED 8.6 MG/DL (8.5-10.1); MAGNESIUM 1.8 MG/DL (1.5-2.5); POTASSIUM 3.5 MEQ/L (3.5-5.1); TOTAL BILIRUBIN ADULT 5.3 MG/DL (0.2-1.0)
--- NOTE | 2016-08-07 22:07 | MB ---
cc: MIR RAHMAN MD, RUBY ANNE E. M.D. DATE OF 66 DATE OF CONSULTATION 08/07/[address] Rahman CHIEF COMPLAINT Dr. Rahman requests a consultation for Ms. Smart regarding thrombocytopenia. HISTORY OF PRESENT ILLNESS Ms. Smart is a 45-year-old woman, well-known patient from a previous consultation back in April of 2016. At the time, she presented with lapse in her anticoagulant therapy for her pulmonary embolism. She has a history of hypertension, diabetes, coronary artery disease ,status post stent placement, hyperlipidemia, COPD, untreated hepatitis C, hypothyroidism. She has cirrhosis of the liver. She has terrible noncompliance. She was readmitted recently for shortness of breath and edema of the lower extremity. She was in the emergency room and initially left against medical advice and returned back seeking medical attention. She is admitted to the hospitalist service and diuresis initiated. Her course is complicated by hyponatremia, increase in BUN and creatinine. Nephrology was consulted. On the day of the consultation, she was seen by the health advocate for hypotension, atrial fibrillation, rapid ventricular response. Upon transfer to the ICU, she was hypotensive, heart rate in the 130s. She was started on Sandro-Synephrine and Cardizem for rate controlled. She spiked a temperature. Sepsis is considered. She was started on empiric antibiotic therapy with Cefepime and Flagyl and one dose of vancomycin. Hematology/Oncology is consulted for the thrombocytopenia. On admission, her platelet count is 160,000. It trended down to platelet count of 64,000 the day of the consultation. Evaluation for heparin-induced thrombocytopenia antibodies were negative. No history could be obtained from the patient. She was critically ill. She was moaning and groaning, hypotensive in Trendelenburg at the time of the consultation. She is pending intubation, mechanical ventilatory support. PAST MEDICAL HISTORY 1. Untreated hepatitis C 2. Stage III kidney disease, 3. History of pulmonary embolism, 4. Congestive heart failure, 5. Hyperlipidemia, 6. COPD, 7. Anxiety, 8. Arthritis 9. Prior deep vein thromboses 10. Hypothyroidism. PAST SURGICAL HISTORY 1. AICD placement 2. Stent placement 3. C section 4. Tubal ligation, 5. Cholecystectomy. ALLERGIES NO KNOWN DRUG ALLERGIES. FAMILY HISTORY Mother had leukemia. Paternal grandmother had [place] and maternal grandmother had heart disease. SOCIAL HISTORY She has smoked half a pack a day. Denies any alcohol use. She has a history of IV drug use. Her urine tox was positive from previous admission. PHYSICAL EXAMINATION VITAL SIGNS: Temperature 101, heart rate 92, blood pressure 76/42, saturation 93%. GENERAL: Ms. Smart is a jaundiced, ill-appearing woman moaning and groaning. She is lethargic. She cannot contribute to history. HEENT: Her pupil is icteric. Oropharynx is dry. NECK: Supple. LUNGS: Clear anteriorly. CARDIOVASCULAR: Tachycardia. She was hypotensive, in Trendelenburg. ABDOMEN: Benign. The central line areas without significant bleeding. LOWER EXTREMITIES: With edema. LABORATORY DATA White blood cell count 4.2, hemoglobin 12.7, platelet count 64,000. PT 20.9 seconds, INR 1.8 without warfarin. HIT antibody negative on 08/07/2016. ASSESSMENT/PLAN Ms. Smart is a 45-year-old woman critically ill with multiple medical problems as described above. She is admitted to the ICU with hypotension, rapid atrial fibrillation with rapid ventricular response and sepsis picture. Hematology/Oncology is consulted for the thrombocytopenia. I suspect this is related to her sepsis. She came in with relatively normal platelet count, despite the liver cirrhosis. I will check a DIC panel. A fibrinogen will be ordered. Repeat fibrinogen I will order tomorrow. Supportive treatment continues. Treatment of underlying sepsis is being addressed from the primary team. No evidence of heparin-induced thrombocytopenia antibodies. She has prolonged PT at baseline off anticoagulant therapy. She has had a recent history of venous thromboembolic event and pulmonary embolism. It is difficult to exclude recurrent clot with her underlying coagulopathy. MD MEKHI Gomez/ /6:46 PM /9:52 PM
[2016-08-07] MEDS: ALBUMIN HUMAN 25% 25 GM/100 ML BAGP IV SCH (23:23)
[2016-08-07 23:34] LABS: BANDS 28 % (0-6); CORRECTED NUCLEATED RBC 1 /100 WBC (0-0); METAMYELOCYTES 5 % (0-1); POLYS (SEG NEUTROPHILS) 61 % (16-70); WBC DIFF SAMPLE 100
[2016-08-07 23:35] LABS: TEARDROP RBCS 1+ (NORMAL)
[2016-08-07 23:36] LABS: DOHLE BODIES PRESENT (NONE SEEN); PLATELET ESTIMATE SMEAR LOW (NORMAL); PLATELET MORPHOLOGY NORMAL (NORMAL); SCAN/DIFF FINAL DIFF MANUAL; TOXIC GRANULATION 3+ (NORMAL)
[2016-08-08] VITALS: BP 114/66; PULSE 111; RESP 26; TEMP 99.3; O2SAT 100
[2016-08-08 00:30] VITALS: O2SAT 100
[2016-08-08] MEDS: NOREPINEPHRINE INJ 8 MG in SODIUM CHLOR 0.9% 250 ML INJ 242 ML IV SCH (00:41)
[2016-08-08] MEDS ORDERED: NOREPINEPHRINE INJ 16 MG in SODIUM CHLOR 0.9% 250 ML INJ 234 ML IV SCH (02:30)
[2016-08-08 04:00] VITALS: BP 102/63; PULSE 122; RESP 20; TEMP 100.3; O2SAT 100
[2016-08-08] MEDS: ALBUMIN HUMAN 25% 25 GM/100 ML BAGP IV SCH (04:07)
[2016-08-08 04:19] VITALS: O2SAT 100
[2016-08-08] MEDS: LEVOTHYROXINE SODIUM 50 MCG TAB PO SCH (06:00)
[2016-08-08 06:01] LABS: APTT (PATIENT) 69.7 SEC (24.3-30.1); PROTHROMBIN TIME - PATIENT 22.4 SEC (9.8-11.6)
--- NOTE | 2016-08-08 06:39 | HHI.CCPN ---
Subjective Remarks/Hospital Course Patient is a 45-year-old female with a past medical history significant for chronic systolic heart failure with an EF of 15-20% on echocardiogram 03/25/16, status post AICD placement, COPD, hepatitis C, cirrhosis, CKD stage III, bilateral PEs diagnosed in March 2016 on Coumadin. Patient presented to the emergency department with increasing shortness of breath, along with increasing pedal edema. Patient was admitted to the hospitalist service, and was placed on IV Lasix and Aldactone was continued. With worsening creatinine nephrology also was consulted. Overnight patient was moved to the ICU for hypotension and atrial fibrillation with rapid ventricular response. Critical care medicine was consulted for persistent hypotension despite fluid boluses. I evaluated the patient in the ICU. Systolic blood pressure is from 85-90 and patient is normally hypertensive. Heart rate is in 130s. I have placed her on Sandro-Synephrine infusion and ordered Cardizem drip for rate control. Spiked fever up to 101.3, most likely getting septic. Empirically started on cefepime and Flagyl, and 1 dose of vancomycin. A bedside ultrasound shows no ascites Subjective: 08/08 In refractory shock with persistent hypotension on Levophed 100 mcg/min, dobutamine 2.5 mcg/kg/min, phenylephrine 300 mcg/min, epinephrine 6 mcg/min. Lactic acid uptrend to 15.7. Hypoxic on 100%. Objective Vital Signs Date Time Temp Pulse Resp B/P Pulse Ox O2 Delivery O2 Flow Rate FiO2 08/08/16 04:19 100 90 08/08/16 04:00 100.3 122 20 102/63 08/07/16 19:00 Mechanical Ventilator 08/07/16 16:00 5.00 Intake and Output 08/07/16 08/07/16 08/07/16 07:59 15:59 23:59 Intake Total 850 ml 3998 ml Output Total 550 ml 250 ml Balance 300 ml 3748 ml Result Diagram: 08/07/16204408/07/162044 Other Results Laboratory Tests Test 08/07/16 08/07/16 08/07/16 17:14 17:48 19:15 Blood Gas Puncture Site RT RADIAL NURSE ART LINE Blood Gas Patient Temperature 98.6 98.6 98.6 Blood Gas HCO3 17 mmol/L 12 mmol/L (22-26) (22-26) Blood Gas Base Excess -7.5 mmol/L -12.9 mmol/L (-2-2) (-2-2) Blood Gas Oxygen Saturation 85 % (90-100) 95 % (90-100) Arterial Blood pH 7.38 7.29 (7.380-7.420) (7.380-7.420) Arterial Blood Partial 29 mmHg (38-42) 26 mmHg (38-42) Pressure CO2 Arterial Blood Partial 60 mmHg 109 mmHg Pressure O2 (61-120) (61-120) Arterial Blood Oxygen Content 11.7 Vol % 11.0 Vol % (12.0-20.0) (12.0-20.0) Arterial Blood 2.6 % (0-4) 2.4 % (0-4) Carboxyhemoglobin Arterial Blood Methemoglobin 0.8 % (0-2) 0.5 % (0-2) Blood Gas Hemoglobin 9.7 G/DL 8.1 G/DL (12.0-16.0) (12.0-16.0) Oxygen Delivery Device NASAL CANNULA NASAL CANNULA VENTILATOR Blood Gas Liter Flow 5 L/M 5 L/M Venous Blood pH 7.32 (7.360-7.400) Venous Blood Partial Pressure 36 mmHg (44-48) CO2 Venous Blood Partial Pressure 33 mmHg (35-40) O2 Venous Blood HCO3 18 mmol/L (22-26) Venous Blood Oxygen Saturation 49 % (70-76) Venous Blood Oxygen Content 6.6 Vol % (9.0-17.0) Venous Blood Base Excess -7.1 mmol/L (-2-2) Blood Gas Ventilator Setting AC/16/550/PEEP 5 Blood Gas Inspired Oxygen 100 % Imaging CXR improving pulmonary edema Objective Remarks Drips: Bicarbonate with 150 mEq per liter at 75 mL per hour Versed 5 mg per hour Fentanyl 50 micrograms per hour Epinephrine 6 mcg/m Cardizem 2.5 mg per hour Phenylephrine 300 mcg/m Norepinephrine 100 mcg/m Dobutamine 2.5 BP 89/51 Afib rate 116 sats 91%. GENERAL: Critically ill appearing female who is orotracheally intubated, unresponsive. SKIN: No rashes, ecchymoses or lesions. Cool and dry. HEAD: Atraumatic. Normocephalic. EYES: Pupils equal round and reactive. Mild scleral icterus and L eye subconjuctival hemorrhage. ENT: Airway patent. NECK: Trachea midline. No JVD or lymphadenopathy. Supple, nontender, no meningeal signs. CARDIOVASCULAR: AFIB with RVR without murmurs, gallops, or rubs. RESPIRATORY: Coarse bilateral breath sounds bilaterally. GASTROINTESTINAL: Abdomen soft, tenderness in the epigastric region, OGT in place with brown gastric contents suctioned. : Blair in place with light priya urine output. Perineal edema present. MUSCULOSKELETAL: Extremities 1+ edema. NEUROLOGICAL: +brow furrowed but otherwise no response to noxious stimuli. Procedures none A/P Assessment and Plan NEURO: Metabolic encephalopathy most likely from sepsis -Monitor neuro status closely. Ammonia level normal -Fentanyl/versed for sedation/comfort/vent synchrony. RESP: Acute respiratory failure COPD History of pulmonary embolism approximately 6 months ago -DuoNeb every 6 hours and when necessary CV: Refractory septic shock New Atrial fibrillation with rapid ventricular response Cardiomyopathy EF 15-20% Status post AICD Lactic acidemia Refractory shock despite multiple vasopressors/inotropes. -Hold aspirin due to thrombocytopenia -DC Lasix and hold Aldactone GI: Liver cirrhosis Hepatitis C - OGT LIWS : Acute on chronic kidney disease -Nephrology following Lasix dose reduced, on hold due to new onset sepsis, hypotension -Blair catheter. ID: Septic shock new Fever -Empiric antibiotics with cefepime and Flagyl and Vancomycin. -Stress dose steroids -Cristobal cultured (after patient , notified /4 cultures with MRSA) -SBP is possible but there is not ascitic fluid to tap per DR. Bernabe recio 08/07 HEME: On chronic Coumadin Thrombocytopenia -Will not place on full anticoagulation due to thrombocytopenia -Thrombocytopenias most likely from sepsis, HIT Ab negative ENDO: Type 2 diabetes Hypothyroidism -Continue sliding scale insulin -Continue Synthroid PROPH: -Bilateral lower extremity SCDs. IV Protonix. -No anticoagulation at this time due to thrombocytopenia LINES: R IJ CVL 08/07 #2, R radial art line 08/07 #2 I met with patients daughter, , and a friend who "calls herself a sister ". Friend states patient had previously discussed that she wanted to be DNR and had filled out an advanced directive but states she does not have record of it and that it was filled out last admission (not in EMR though so friend isn't sure if patient ever turned it in). Patient has a 19 yo adult daughter who was at bedside. There is an estranged adult son, Leonard Johnson, who family does not have contact information for. Discussed with case management for attempt to locate him to participate in discussion of goals of care if he chooses to participate. Did discuss code status with daughter and they were in process of discussing their decision when patient experienced pulseless arrest and daughter requested that CPR be witheld. Discussed with staff that patient is DNR. Patient with daughter, and friend at bedside. Carburetor Expert arrived. CCT 46 minutes exclusive of separately billable procedures. Roseanne Clifford MD Aug 08, 2016 06:39
[2016-08-08] MEDS: MIDODRINE 5 MG TAB PO SCH (06:48)
[2016-08-08 06:49] LABS: BLOOD GAS BASE EXCESS -15.5 mmol/L (-2-2); BLOOD GAS HCO3 10 mmol/L (22-26); BLOOD GAS METHEMOGLOBIN 0.6 % (0-2); BLOOD GAS O2 HGB SATURATION 96 % (90-100); BLOOD GAS OXYGEN CONTENT 12.1 Vol % (12.0-20.0); BLOOD GAS PCO2 21 mmHg (38-42); BLOOD GAS PO2 116 mmHg (61-120); BLOOD GAS TOTAL HGB 8.9 G/DL (12.0-16.0); TEMP CORR TO 98.6
[2016-08-08 06:50] LABS: CRITICAL VALUE YES; DRAW SITE ART LINE; FIO2 90 %; OXYGEN DEVICE VENTILATOR; VENT SETTINGS VAC16/550/PEEP5
[2016-08-08 06:51] LABS: STAT YES
[2016-08-08 07:21] VITALS: O2SAT 95
[2016-08-08 08:00] VITALS: BP 83/48; PULSE 100; RESP 46; TEMP 101.6; O2SAT 91
[2016-08-08] MEDS ORDERED: FUROSEMIDE 40 MG TAB PO SCH ×2 (09:00)
--- NOTE | 2016-08-08 09:44 | HHI.NPPN ---
Objective Data Data 08/07/16 08/08/16 19:00 07:00 Intake Total 850 ml 6731 ml Output Total 550 ml 425 ml Balance 300 ml 6306 ml Intake Oral 100 ml 0 ml IV Total 750 ml 5837 ml Albumin 300 ml Other 594 ml Output Urine Total 550 ml 425 ml Bladder Scan Volume Amount 681 ml # Bowel Movements 0 0 Vital Signs Date Time Temp Pulse Resp B/P Pulse Ox O2 Delivery O2 Flow Rate FiO2 08/08/16 08:00 Mechanical Ventilator 88 08/08/16 07:21 95 90 08/08/16 07:00 Mechanical Ventilator 90 08/08/16 04:19 100 90 08/08/16 04:00 100 08/08/16 04:00 100.3 122 20 102/63 100 08/08/16 00:30 100 100 08/08/16 00:00 99.3 111 26 114/66 100 08/08/16 00:00 100 08/07/16 23:00 74 08/07/16 20:15 0 100 08/07/16 20:00 99.3 98 30 100/56 92 08/07/16 20:00 100 08/07/16 19:33 100 08/07/16 19:00 Mechanical Ventilator 100 08/07/16 18:55 100 100 08/07/16 16:00 94 Nasal Cannula 5.00 08/07/16 16:00 101.0 92 37 76/42 93 08/07/16 15:00 91 08/07/16 12:00 101.3 126 28 85/48 95 -: 08/07/16204408/07/162044 Microbiology 08/07/16 Urine Culture, Worksheet Pending 08/07/16 Aerobic Blood Culture - Preliminary, Resulted Gram Positive Cocci 08/07/16 Anaerobic Blood Culture - Preliminary, Resulted Gram Positive Cocci 08/07/16 Aerobic Blood Culture - Preliminary, Resulted Gram Positive Cocci 08/07/16 Anaerobic Blood Culture - Preliminary, Resulted Gram Positive Cocci Tubes & Lines: Blair Assessment/Plan Plan patient had before I was able to see her. Jevon Villaseñor MD Aug 08, 2016 09:44 Gram Positive Cocci 08/07/16 Aerobic Blood Culture - Preliminary, Resulted Gram Positive Cocci 08/07/16 Anaerobic Blood Culture - Preliminary, Resulted Gram Positive Cocci Tubes & Lines: Blair Physical Exam General Appearance: Well Developed, No Acute Distress, Comfortable, Malnourished Eyes Eye Exam: Pupils Equal Throat Throat Exam: Oral Mucosa Cavalero & Moist Pulmonary Resp Exam: Breath Sounds Equal, Crackles Cardiology CV Exam: Regular, Tachycardia, Murmur Gastrointestinal/Abdomen GI Exam: Soft, Non-Tender, Bowel Sounds Present Musculoskeletal MS Exam: Joints Intact, Normal Tone Integumentary Skin Exam: Clear, Warm, Dry, Intact Extremeties Extremities Exam: Moderate Edema, Pitting Edema, Dependent Edema Neurologic Neuro Exam: Alert, Awake, Oriented, Speech Clear, Moving All Extremities Psychiatric Psych Exam: Appropriate Responses Assessment/Plan Discussed Condition With: Patient Assessment Summary: DEL/Acute Renal Failure, Fluid/Volume Overload, CHF, Hypotension Electrolyte Assessment: Hyponatremia Problem List: (1) Acute kidney injury Plan: on CKD, with baseline creatinine 1.2-1.3 from last month DEL was due to decompensated CHF, now patient with septic shock and lactic acidosis. Continue antibiotics. Diuretics held. Very poor prognosis. (2) Hyponatremia Plan: monitor. Labs from today are pending. (3) Severe sepsis Plan: Received Vancomycin. On Cefepime. (4) Lactic acidosis Plan: due to septic shock, hypoperfusion. Plan Prognosis is very poor. Jevon Villaseñor MD Aug 08, 2016 09:44
--- NOTE | 2016-08-08 13:37 | EKG ---
Date Performed: 08/07/2016 Time Performed: 11:46:26 PTAGE: 45 years EKG: Atrial fibrillation with rapid ventricular response. Right axis deviation Possible inferior infarct - age undetermined Possible lateral infarct - age undetermined Abnormal ECG NO PREVIOUS TRACING DOCTOR: Lior Shankar Interpretating Date/Time 08/08/2016 13:33:35
[2016-08-08] MEDS ORDERED: EPINEPHrine HCL (1:10,000) 1 MG/10 ML SYRINGE IV ONE (15:04)
[2016-08-08] MEDS ORDERED: ATROPINE SULFATE 1 MG/10 ML SYRINGE IV ONE (15:04)
--- NOTE | 2016-08-10 23:26 | DEATH SUM ---
Summary Demographics Date Pronounced : Aug 08, 2016 Time Of : 09 Pronounced By: Lacie Garvin RN; Bronwyn Bower RN Preliminary Cause of : Cardiac arrest Roseanne Clifford MD Aug 10, 2016 23:26
--- NOTE | 2016-08-10 23:27 | HHI.DS ---
Summary Note Date of : Aug 08, 2016 Time Of : 0903 Admission Date Jul 27, 2016 at 10:24 Admitting Diagnosis volume overload Diagnosis at Time of : (1) CHF (congestive heart failure) ICD Code: I50.9 Diagnosis: Principal (2) CAD (coronary artery disease) ICD Code: I25.10 Diagnosis: Secondary (3) Type 2 diabetes mellitus with hyperglycemia, with long-term current use of insulin ICD Code: E11.65 Diagnosis: Secondary (4) Acute kidney injury ICD Code: N17.9 Diagnosis: Secondary (5) Hyperammonemia ICD Code: E72.20 Diagnosis: Secondary (6) Hyponatremia ICD Code: E87.1 Diagnosis: Secondary (7) Hepatitis C ICD Code: B19.20 (8) Cirrhosis ICD Code: K74.60 Diagnosis: Secondary (9) COPD with acute exacerbation ICD Code: J44.1 Diagnosis: Secondary (10) Fall ICD Code: W19.XXXA Diagnosis: Secondary (11) Hypoglycemia due to insulin ICD Code: E16.0 Diagnosis: Secondary (12) Multi-organ failure with heart failure ICD Code: I50.9 Diagnosis: Principal (13) End-stage systolic heart failure ICD Code: I50.20 Diagnosis: Principal (14) Respiratory failure ICD Code: J96.90 Diagnosis: Secondary (15) Septic shock ICD Code: A41.9 Diagnosis: Principal (16) HTN (hypertension) ICD Code: I10 (17) HLD (hyperlipidemia) ICD Code: E78.5 Diagnosis: Secondary (18) Presence of cardiac defibrillator ICD Code: Z95.810 Diagnosis: Secondary (19) Lactic acidosis ICD Code: E87.2 Diagnosis: Secondary (20) Severe sepsis ICD Code: A41.9 (21) Bacteremia due to Gram-positive bacteria ICD Code: A49.9 Diagnosis: Secondary Procedures none Brief History This is a 45-year-old female with a past medical history significant for CHF with an EF of 15-20% in last echocardiogram obtained on March 25, status post AICD placement, COPD, hepatitis C, cirrhosis, CK V stage III, bilateral PEs diagnosed in March 2016 for which the patient was on Coumadin which was held secondary to the INR being supratherapeutic. The patient presented on complaining of increased abdominal distention and shortness of breath associated with these on exertion. Patient also was complaining at the time of vomiting and as per medical records the patient denied any coffee-ground emesis or bright red blood per rectum. Patient was complaining of some epigastric abdominal pain at the time. The patient was then admitted to the medical floor and started on a treatment for anasarca and acute on chronic systolic heart failure. 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 The patient came back and is still complaining of shortness of breath and is on exertion as well as edema in bilateral extremities. The patient denies fevers, chills, cough, nausea, vomiting or diarrhea. CBC/BMP: 08/07/16204408/07/162044 Significant Findings Laboratory Tests Test 08/08/16 08/08/16 08/08/16 00:10 05:10 06:35 Lactic Acid Level 13.3 mmol/L 15.7 mmol/L (0.4-2.0) (0.4-2.0) Prothrombin Time 22.4 SEC (9.8-11.6) Activated Partial 69.7 SEC Thromboplast Time (24.3-30.1) Blood Gas HCO3 10 mmol/L (22-26) Blood Gas Base Excess -15.5 mmol/L (-2-2) Arterial Blood pH 7.29 (7.380-7.420) Arterial Blood Partial 21 mmHg (38-42) Pressure CO2 Blood Gas Hemoglobin 8.9 G/DL (12.0-16.0) Imaging CXR improving pulmonary edema Hospital Course Patient is a 45-year-old female with a past medical history significant for chronic systolic heart failure with an EF of 15-20% on echocardiogram 03/25/16, status post AICD placement, COPD, hepatitis C, cirrhosis, CKD stage III, bilateral PEs diagnosed in March 2016 on Coumadin. Patient presented to the emergency department with increasing shortness of breath, along with increasing pedal edema. Patient was admitted to the hospitalist service, and was placed on IV Lasix and Aldactone was continued. With worsening creatinine nephrology also was consulted. Overnight patient was moved to the ICU for hypotension and atrial fibrillation with rapid ventricular response. Critical care medicine was consulted for persistent hypotension despite fluid boluses. Dr. Kidd evaluated the patient in the ICU. Systolic blood pressure is from 85- 90 and patient is normally hypertensive. Heart rate is in 130s. I have placed her on Sandro-Synephrine infusion and ordered Cardizem drip for rate control. Spiked fever up to 101.3, most likely getting septic. Empirically started on cefepime and Flagyl, and 1 dose of vancomycin. A bedside ultrasound shows no ascites 08/08 In refractory shock with persistent hypotension on Levophed 100 mcg/min, dobutamine 2.5 mcg/kg/min, phenylephrine 300 mcg/min, epinephrine 6 mcg/min. Lactic acid uptrend to 15.7. Hypoxic on 100%. Dr. Clifford met with patients daughter, , and a friend who "calls herself a sister". Friend states patient had previously discussed that she wanted to be DNR and had filled out an advanced directive but states she does not have record of it and that it was filled out last admission (not in EMR though so friend isn't sure if patient ever turned it in). Patient has a 19 yo adult daughter who was at bedside. There is an estranged adult son, Leonard Johnson, who family does not have contact information for. Discussed with case management for attempt to locate him to participate in discussion of goals of care if he chooses to participate. Did discuss code status with daughter and they were in process of discussing their decision when patient experienced pulseless arrest and daughter requested that CPR be witheld. Discussed with staff that patient is DNR. Patient with daughter, and friend at bedside at 09.03 on 08/08/16. Forester [employer] arrived at bedside and prayed with family. Roseanne Clifford MD Aug 10, 2016 23:27
== END 2016-08-08 15:05 | disposition expired | DRG 291 ==
LOC: NEPD 09:32 → NEDA 10:24 → N05B 15:34 → N03B 08-06 21:35
PROVIDERS: ADMIT Hospitalist; ATTEND Hospitalist
PROC: 5A1935Z Respiratory Ventilation, Less than 24 Consecutive Hours (ICD-10-PCS; principal; 2016-08-07)
PROC: 03HY32Z Insertion of Monitoring Device into Upper Artery, Percutaneous Approach (ICD-10-PCS; 2016-08-07)
PROC: 0BH17EZ Insertion of Endotracheal Airway into Trachea, Via Natural or Artificial Opening (ICD-10-PCS; 2016-08-07)
PROC: 05HM33Z Insertion of Infusion Device into Right Internal Jugular Vein, Percutaneous Approach (ICD-10-PCS; 2016-08-07)
PROC: B543ZZA Ultrasonography of Right Jugular Veins, Guidance (ICD-10-PCS; 2016-08-07)
DX: I13.0 Hypertensive heart and chronic kidney disease with heart failure and stage 1 through stage 4 chronic kidney disease, or unspecified chronic kidney disease (principal); I50.23 Acute on chronic systolic (congestive) heart failure; R65.21 Severe sepsis with septic shock; J96.01 Acute respiratory failure with hypoxia; A41.9 Sepsis, unspecified organism; G93.41 Metabolic encephalopathy; N17.9 Acute kidney failure, unspecified; N18.3 Chronic kidney disease, stage 3 (moderate); E87.2 Acidosis; E87.1 Hypo-osmolality and hyponatremia; J44.1 Chronic obstructive pulmonary disease with (acute) exacerbation; F23 Brief psychotic disorder; E46 Unspecified protein-calorie malnutrition; R18.8 Other ascites; E11.22 Type 2 diabetes mellitus with diabetic chronic kidney disease; D69.6 Thrombocytopenia, unspecified; I42.9 Cardiomyopathy, unspecified; K74.69 Other cirrhosis of liver; E78.5 Hyperlipidemia, unspecified; I25.10 Atherosclerotic heart disease of native coronary artery without angina pectoris; I25.2 Old myocardial infarction; E03.9 Hypothyroidism, unspecified; D64.9 Anemia, unspecified; I48.91 Unspecified atrial fibrillation; E83.42 Hypomagnesemia; I08.1 Rheumatic disorders of both mitral and tricuspid valves; E11.65 Type 2 diabetes mellitus with hyperglycemia; I49.3 Ventricular premature depolarization; E16.0 Drug-induced hypoglycemia without coma; E86.0 Dehydration; I46.9 Cardiac arrest, cause unspecified; M25.552 Pain in left hip; M25.511 Pain in right shoulder; M54.2 Cervicalgia; M79.669 Pain in unspecified lower leg; M79.642 Pain in left hand; M19.90 Unspecified osteoarthritis, unspecified site; T38.0X5A Adverse effect of glucocorticoids and synthetic analogues, initial encounter; T38.3X5A Adverse effect of insulin and oral hypoglycemic [antidiabetic] drugs, initial encounter; F17.200 Nicotine dependence, unspecified, uncomplicated; F19.90 Other psychoactive substance use, unspecified, uncomplicated; F41.9 Anxiety disorder, unspecified; W19.XXXA Unspecified fall, initial encounter; Y92.239 Unspecified place in hospital as the place of occurrence of the external cause; Z66 Do not resuscitate; Z76.5 Malingerer [conscious simulation]; Z79.01 Long term (current) use of anticoagulants; Z79.4 Long term (current) use of insulin; Z80.6 Family history of leukemia; Z82.49 Family history of ischemic heart disease and other diseases of the circulatory system; Z86.14 Personal history of Methicillin resistant Staphylococcus aureus infection; Z86.19 Personal history of other infectious and parasitic diseases; Z86.711 Personal history of pulmonary embolism; Z86.718 Personal history of other venous thrombosis and embolism; Z91.19 Patient's noncompliance with other medical treatment and regimen; Z95.5 Presence of coronary angioplasty implant and graft; Z95.810 Presence of automatic (implantable) cardiac defibrillator
CPT/HCPCS: 31500; 36556; 36589; 36600; 71010; 72125; 72170; 73030; 73120; 76937; 80048; 80053; 82140; 82728; 82805; 82948; 83540; 83550; 83605; 83735; 83880; 84100; 85007; 85025; 85027; 85384; 85610; 85730; 86022; 86403; 87040; 87086; 87149; 87205; 92950; 93005; 93970; 94002; 94003; 94150; 94640; 94664; J0171; J0461; J0692; J1250; J1720; J1756; J1815; J1940; J1956; J2060; J2250; J2370; J2920; J2930; J3010; J3370; J3475; J7030; J7040; J7050; J7060; J7070; J7512; P9047